=== PATIENT | female | born 1935 | race Caucasian/White ===

== ENCOUNTER 2016-04-13 06:58 | Inpatient (IN) | payer OTHER, BC ==
[~2016-04-13] VITALS: Ht 152.4 cm; Wt 81.8 kg
[2016-04-13] VITALS (14 sets, daily range): BP systolic 84–126; BP diastolic 60–82; PULSE 95–114; TEMP 36.5–37.6; O2SAT 93–98; Ht 152.4 cm; Wt 81.8 kg
[2016-04-13] MEDS: SODIUM CHLORIDE 0.9% 1000ML 1,000 ML IV SCH ×4 (04:00→23:47)
[~2016-04-13 06:58] MED LIST: ALEN70TA2 PO; CALC0.2510 PO; CHOL1000 PO; DESM0.1T8 PO; FLUO0.0566 TOP; HYD10 PO; INSDGIPEN SC; LACT12LO3 EXT; LATA0.009 OP; MCRK20 PO; NITR1CAP32 PO; NRV5 PO; NYST100098 TOP; SALI0.6517 NAE; SOLI10TA2 PO; SYN112 PO
[2016-04-13 07:55] LABS: URINE APPEARANCE CLOUDY (CLEAR); URINE BILIRUBIN NEG (NEG); URINE COLOR DK YELLOW; URINE EPITHELIAL CELL AUTO >30 /lpf (0-5); URINE NITRITE NEG (NEG); URINE PH 5.5 (4.5-7.5); URINE SPECIFIC GRAVITY 1.015 (1.000-1.030); UROBILINOGEN NEG (NEG)
[2016-04-13 08:03] LABS: MANUAL MICROSCOPIC REQUIRED? NO; REVIEW REQ? YES
--- NOTE | 2016-04-13 08:17 | DIAGNOSTIC IMAGING REPORT ---
CHEST ONE VIEW PORTABLE CLINICAL HISTORY: Altered mental status. COMPARISON STUDY: Chest radiograph April 06, 2016. FINDINGS: The right PICC has been removed. There is no pneumothorax or pleural effusion. Mild cardiomegaly is unchanged. A right ureteral stent is partially imaged. There is no evidence of pulmonary edema. No consolidation is identified. Hazy left basilar opacity is unchanged and likely due to epicardial fat pad. IMPRESSION: No acute cardiopulmonary findings. Electronically signed by: Jhoan Mena M.D. 04/13/2016 8:16 AM
[2016-04-13 08:18] LABS: URINE PATH CASTS 0-3 GRANULAR CASTS /lpf (0)
--- NOTE | 2016-04-13 08:21 | DIAGNOSTIC IMAGING REPORT ---
CT HEAD WITHOUT CONTRAST (CT) CLINICAL HISTORY: Acute change in mental status. Fatigue. COMPARISON STUDY: 04/09/2016 TECHNIQUE: Axial CT of the brain is performed from the vertex to the skull base. IV contrast was not administered for this examination. CT DOSE: 537.48 mGy.cm FINDINGS: No intra or extra-axial mass lesions are visualized. There is no CT evidence of acute cortical infarction. There is no evidence of midline shift. There is no acute hemorrhage. No calvarial fractures are visualized. There are postsurgical changes of bifrontal craniotomies. There are moderate white matter hypodensities likely on a small vessel basis. There is no evidence of pathologic ventricular dilatation. There is no evidence of acute sinusitis IMPRESSION: Postsurgical changes. No acute intracranial findings. Electronically signed by: Lico Cabral M.D. 04/13/2016 8:20 AM
[2016-04-13 08:24] LABS: BENZODIAZEPINE, URINE NEG (NEG); COCAINE,URINE NEG (NEG); PHENCYCLIDINE, URINE NEG (NEG)
[2016-04-13] MEDS ORDERED: METOCLOPRAMIDE HCL INJ 5 MG/ML 2 ML VIAL IV STA (08:54)
[2016-04-13] MEDS ORDERED: ONDANSETRON INJ 2 MG/ML 2 ML VIAL IV STA (08:54)
[2016-04-13 09:08] LABS: MEAN CELL VOLUME 92.8 fL (80-100); MEAN CORPUSCULAR HEMOGLOBIN 32.4 pg (25-34); MEAN CORPUSCULAR HGB CONC 34.9 g/dl (32-36); MEAN PLATELET VOLUME 11.3 fL (7.4-10.4); PLATELET COUNT 185 K/uL (130-400); RED BLOOD COUNT 4.85 M/uL (4.2-5.4); WHITE BLOOD COUNT 22.52 K/uL (4.8-10.8)
[2016-04-13 09:21] LABS: COMPLETE YES; LYMPH ABS # 0.97 K/uL (1.2-3.4); LYMPHOCYTE % 4.3 %; MYELOCYTE % 0.9 %; NEUTROPHILS % 90.5 %
[2016-04-13] MEDS ORDERED: CEFTRIAXONE SOD INJ 1 GM ADDVIAL IV STA (09:40)
[2016-04-13 09:43] LABS: ALB/GLOB RATIO 0.8 (0.9-2); ALKALINE PHOSPHATASE 81 U/L (45-117); ALT/SGPT 30 U/L (12-78); AST/SGOT 28 U/L (15-37); BLOOD UREA NITROGEN 20 mg/dl (7-18); BUN/CREATININE RATIO 13.5 (10-20); C-REACTIVE PROTEIN 2.81 mg/dl (0-0.29); CALCIUM 8.7 mg/dl (8.5-10.1); CARBON DIOXIDE 20 mmol/L (21-32); CHLORIDE 111 mmol/L (98-107); GLUCOSE 131 mg/dl (70-99); MAGNESIUM 2.2 mg/dl (1.8-2.4); PHOSPHORUS 3.1 mg/dl (2.5-4.9); POTASSIUM 4.2 mmol/L (3.5-5.1); PROCALCITONIN 0.34 ng/mL (0-0.5); SODIUM 143 mmol/L (136-145)
[2016-04-13 09:53] LABS: LYME DISEASE AB IGG NEG (NEG); LYME DISEASE AB IGM NEG (NEG)
[2016-04-13] MEDS ORDERED: ACETAMINOPHEN 650 MG SUPP PR STA (09:53)
--- NOTE | 2016-04-13 10:39 | History and Physical ---
History & Physical Date & Time of Service: Apr 13, 2016 at 10:38 Chief Complaint: Fatigue Primary Care Physician: Dank Carrillo M.D. History of Present Illness Patient is a 81 y.o.F PMHx of MDR Pseudomonas, Hx of ureteral stent presented to the hospital with altered mentals status. Patient was discharged on 04.11.16. Patients states that she was doing well until this am. Patients states this morning patient had an episode of syncope this morning when caregivers attempted to stand her up. Patients husbands states she was unresponsive for a few seconds. EMS was called and while putting patient on the gurney patient had another syncopal episode. Patient herself states that does had suprapubic pain, dysuria and chills. Past Medical/Surgical History Medical Problems: (1) Depression Status: Chronic (2) GERD (gastroesophageal reflux disease) Status: Chronic (3) Glaucoma Status: Chronic (4) Hypercholesteremia Status: Chronic (5) Right frontal lobe mass Status: Resolved Family History Bladder cancer MOTHER Breast cancer SISTER FH: kidney disease FHx: heart disease Skin cancer MOTHER Social History Smoking Status: Unknown if Ever Smoked Drug Use: none Marital Status: Housing status: lives with family Occupational Status: retired Immunizations History of Influenza Vaccine: No Influenza Vaccine Date: Feb 04, 2010 History of Tetanus Vaccine?: No History of Pneumococcal: YES- [place] 2008 History of Hepatitis B Vaccine: No Multi-Drug Resistant Organisms History of MDRO: No Allergies Coded Allergies: Amoxicillin (Verified Allergy, Intermediate, Swelling of Lips, 04/13/16) Ciprofloxacin (Verified Allergy, Intermediate, RASH, NAUSEA, 04/13/16) Sulfa Antibiotics (Verified Allergy, Intermediate, RASH, 04/13/16) Biotin (Verified Allergy, Unknown, UNKN, 04/13/16) Mirtazapine (Verified Adverse Reaction, Intermediate, altered mental status changes, 04/13/16) Oxycodone (Verified Adverse Reaction, Mild, N/V, 04/13/16) Home Medications Scheduled Alendronate Sodium (Fosamax), 70 MG PO WK Amlodipine Besylate (Amlodipine Besylate), 10 MG PO QAM Ammonium Lactate (Lac-Hydrin), 1 APPLN EXT DIRECTED Calcitriol (Rocaltrol Cap), 0.5 MCG PO DAILY Calcium Carbonate-Cholecalcife (Caltrate 600+D), 1 TAB PO BID Cholecalciferol (Vitamin D3), 5,000 UNITS PO DAILY Desmopressin Acetate (Desmopressin Acetate), 0.2 MG PO HS Hydrocortisone (Cortef), 10 MG PO DAILY@1400 Hydrocortisone (Cortef), 15 MG PO QAM Insulin Glargine (Lantus Solostar), 6 UNIT SC HS Latanoprost (Xalatan 0.005% Oph Leslie), 1 DROPS OP HS Levothyroxine Sodium (Synthroid), 112 MCG PO DAILYBB Menthol (Topical Analgesic) (Biofreeze), 1 APPLN EXT DIRECTED Nitrofurantoin Macrocrystals (Macrodantin), 100 MG PO Q12 Nystatin (Mycostatin), 1 APPLN TOP BID Omeprazole (Prilosec), 20 MG PO DAILY Pediatric Multiple Vitamin W/ (Chewables Multivitamin Pederson), 1 TAB PO DAILY Polyethylene Glycol-Propylene (Systane Ultra), 1 DROPS OP q4-6hours Potassium Chloride (Klor-Con M20), 20 MEQ PO DAILY Probiotic Product (Align), 1 CAP PO DAILY Sodium Chloride ([place] Nasal), 1 SPRAY OSVALDO DIRECTED Solifenacin (Vesicare), 10 MG PO DAILY Scheduled PRN Acetaminophen (Tylenol), 650 MG PO Q4H PRN for MILD PAIN # 1-3 Review of Systems Constitutional: + chills, + fever Eyes: No worsening of vision ENT: No hearing loss Respiratory: + cough, No dyspnea on exertion, No shortness of breath, No sputum Cardiovascular: No chest pain, No edema, No orthopnea Abdomen: + pain, No diarrhea, No nausea, No vomiting Musculoskeletal: No joint pain Genitourinary - Female: No dysuria Neurologic: No memory loss Psychiatric: No depression symptoms Endocrine: No fatigue Hematologic / Lymphatic: No abnormal bleeding/bruising Integumentary: No itch, No rash Allergic / Immunologic: No environmental allergies Physical Exam Vital Signs Date Time Temp Pulse Resp B/P Pulse Ox O2 Delivery O2 Flow Rate FiO2 04/13/16 10:15 118 20 116/74 98 Room Air 04/13/16 09:48 37.8 04/13/16 09:46 116 22 113/69 96 Room Air 04/13/16 09:41 114 24 84/65 97 Room Air 04/13/16 09:37 118 20 89/74 100 Room Air 04/13/16 09:00 118 21 99/76 98 Room Air 04/13/16 08:53 113/79 92 Room Air 04/13/16 08:32 102 21 108/80 98 Room Air 04/13/16 07:02 103 04/13/16 07:01 36.8 102 18 106/76 93 Room Air General Appearance: WD/WN, + mild distress Head: normocephalic Eyes: normal inspection ENT: normal ENT inspection Neck: supple Respiratory/Chest: chest non-tender, lungs clear Cardiovascular: no edema, + tachycardia Abdomen/GI: normal bowel sounds, soft, + tenderness (suprapubic) Genitourinary - Female: external genitalia normal Back: normal inspection Extremities/Musculoskelatal: normal inspection Neurologic/Psych: 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 tested, no motor/sensory deficits, alert, oriented x 3 Skin: normal color, warm/dry, no rash Lymphatic: no adenopathy Diagnostics Laboratory Results Results Past 24 Hours Test 04/13/16 07:30 04/13/16 08:43 Range/Units Urine Color DK YELLOW Urine Appearance CLOUDY CLEAR Urine pH 5.5 4.5-7.5 Urine Specific [place] 1.015 1.000-1.030 Urine Protein 2+ NEG Urine Glucose (UA) NEG NEG Urine Ketones NEG NEG Urine Occult Blood 2+ NEG Urine Nitrite NEG NEG Urine Bilirubin NEG NEG Urine Urobilinogen NEG NEG Urine Leukocyte Esterase MODERATE NEG Urine WBC (Auto) 10-30 0-5 /hpf Urine RBC (Auto) >30 0-4 /hpf Urine Hyaline Casts (Auto) 10-30 0-5 /lpf Urine Epithelial Cells (Auto) >30 0-5 /lpf Urine Bacteria (Auto) NEG NEG Urine Renal Epithelial Cells 0-5 /lpf Urine Pathogenic Casts 0-3 GRANULAR CASTS 0 /lpf Urine Opiates Screen NEG NEG Urine Methadone, Qualitative NEG NEG Urine Barbiturates NEG NEG Urine Phencyclidine (PCP) Level NEG NEG Ur Amphetamine/Methamphetamine NEG NEG MDMA (Ecstasy) Screen NEG NEG Urine Benzodiazepines Screen NEG NEG Urine Cocaine Metabolite NEG NEG Urine Marijuana (THC) NEG NEG White Blood Count 22.52 4.8-10.8 K/uL Red Blood Count 4.85 4.2-5.4 M/uL Hemoglobin 15.7 12.0-16.0 g/dL Hematocrit 45.0 37-47 % Mean Corpuscular Volume 92.8 80-100 fL Mean Corpuscular Hemoglobin 32.4 25-34 pg Mean Corpuscular Hemoglobin Concent 34.9 32-36 g/dl Platelet Count 185 130-400 K/uL Mean Platelet Volume 11.3 7.4-10.4 fL RDW Standard Deviation 57.3 36.4-46.3 fL RDW Coefficient of Variation 17.0 11.5-14.5 % Nucleated RBC Absolute Count (auto) 0.09 0-0 K/uL Neutrophils % (Manual) 90.5 % Lymphocytes % (Manual) 4.3 % Monocytes % (Manual) 4.3 % Myelocytes % 0.9 % Nucleated Red Blood Cells % 0.4 % Neutrophils # (Manual) 20.38 1.4-6.5 K/uL Total Absolute Neutrophils 20.38 1.4-6.5 K/uL Lymphocytes # (Manual) 0.97 1.2-3.4 K/uL Total Absolute Lymphocytes 0.97 1.2-3.4 K/uL Monocytes # (Manual) 0.97 0.11-0.59 K/uL Myelocytes # 0.20 0-0 K/uL Sodium Level 143 136-145 mmol/L Potassium Level 4.2 3.5-5.1 mmol/L Chloride Level 111 98-107 mmol/L Carbon Dioxide Level 20 21-32 mmol/L Anion Gap 12.0 3-11 mmol/L Blood Urea Nitrogen 20 7-18 mg/dl Creatinine 1.50 0.60-1.20 mg/dl Est Creatinine Clear Calc Drug Dose 28.7 ml/min Estimated GFR () 37.7 Estimated GFR (Non- 32.6 BUN/Creatinine Ratio 13.5 10-20 Random Glucose 131 70-99 mg/dl Calcium Level 8.7 8.5-10.1 mg/dl Phosphorus Level 3.1 2.5-4.9 mg/dl Magnesium Level 2.2 1.8-2.4 mg/dl Total Bilirubin 0.6 0.2-1 mg/dl Direct Bilirubin 0-0.2 mg/dl Aspartate Amino Transf (AST/SGOT) 28 15-37 U/L Alanine Aminotransferase (ALT/SGPT) 30 12-78 U/L Alkaline Phosphatase 81 45-117 U/L Troponin I < 0.015 0-0.045 ng/ml C-Reactive Protein 2.81 0-0.29 mg/dl Total Protein 6.6 6.4-8.2 gm/dl Albumin 3.0 3.4-5.0 gm/dl Globulin 3.6 2.5-4.0 gm/dl Albumin/Globulin Ratio 0.8 0.9-2 Procalcitonin 0.34 0-0.5 ng/mL Ethyl Alcohol mg/dL < 3.0 0-3 mg/dl Lyme Disease IgG Antibody NEG NEG Lyme Disease IgM Antibody NEG NEG Microbiology Results 04/13/16 Blood Culture, Zachary Batch Pending 04/13/16 Blood Culture, Zachary Batch Pending Impression Assessment and Plan Patient is an 81 y.o.F brought in from the ED with altered mental status, found to have Urosepsis Urinary Tract infection with sepsis - admit to medicine telemetry until - treat with imipenem as was previous choice of inpatient antibiotics last admission - start NSS @80cc/hr - urine/blood cultures are pending VERO - suspect prerenal from sepsis - start IVF at 80cc/hour Metabolic encephalopathy - suspect 2/2 to UTI - recent hospitalization with similar presentation, symptoms resolved with changing of antibiotics regimen Diabetes insipidus - Continue vasopressin - no defined cause for encephalopathy, no improved mental state with stress steroid augmentation, resume usual hydrocortisone 04/09 Type 2 DM - Continue home lantus - Novolog sliding scale Hypertension - Continue amlopidine - Hydralazine PRN Hypothyroidism - Continue synthroid 100mcg VTE - Heparin CODE STATUS- FULL CODE
[2016-04-13] MEDS ORDERED: ACETAMINOPHEN 325 MG TAB PO PRN (11:00)
[2016-04-13] MEDS ORDERED: IMIPENEM/CILASTATIN CONSULT ACTIVE PRN (11:03)
[2016-04-13] MEDS ORDERED: IMIPENEM/CILASTATIN IV 500 MG in DEXTROSE 5% 100ML 100 ML IV SCH (11:15)
--- NOTE | 2016-04-13 11:28 | EMERGENCY ROOM VISIT NOTE ---
History Report prepared by Eliezer: Alberta Lerma Under the Supervision of: Dr. Allan Villa M.D. First contact with patient: 07:15 Chief Complaint: OTHER COMPLAINT Stated Complaint: FATIGUE History of Present Illness The patient is a 81 year old female who presents to the Emergency Room with complaints of constant altered mental status beginning this morning. Per , the patient did not wake up at all last night to use the bathroom which is unusual for her. He tried to wake her up this morning and states that she became "sort of non-responsive and her eyes glazed over." This lasted for about 4-5 minutes. He called EMS and states that she had a similar episode when EMS arrived. She was complaining of nausea with these episodes. The patient's states that this is similar to how she acted the last time she had to be admitted to the hospital. She was admitted to the hospital twice in the past couple of weeks. She was most recently discharged from the hospital 3 days ago. states that the last time her doctor thought it might be a reaction to cefepime. He notes that she is more confused than normal. 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 A total of 10 systems reviewed and were otherwise negative. Past Medical & Surgical Medical Problems: (1) Abnormal liver enzymes (2) Depression (3) Diabetes insipidus (4) GERD (gastroesophageal reflux disease) (5) Glaucoma (6) Hypercholesteremia (7) Metabolic encephalopathy (8) NSTEMI, initial episode of care (9) Right frontal lobe mass (10) Sepsis (11) UTI (urinary tract infection) Family History Bladder cancer MOTHER Breast cancer SISTER FH: kidney disease FHx: heart disease Skin cancer MOTHER Social History Smoking Status: Unknown if Ever Smoked Alcohol Use: none Drug Use: none Marital Status: Housing Status: lives with family Occupation Status: retired Current/Historical Medications Scheduled Alendronate Sodium (Fosamax), 70 MG PO WK Amlodipine Besylate (Amlodipine Besylate), 10 MG PO QAM Ammonium Lactate (Lac-Hydrin), 1 APPLN EXT DIRECTED Calcitriol (Rocaltrol Cap), 0.5 MCG PO DAILY Calcium Carbonate-Cholecalcife (Caltrate 600+D), 1 TAB PO BID Cholecalciferol (Vitamin D3), 5,000 UNITS PO DAILY Desmopressin Acetate (Desmopressin Acetate), 0.2 MG PO HS Hydrocortisone (Cortef), 10 MG PO DAILY@1400 Hydrocortisone (Cortef), 15 MG PO QAM Insulin Glargine (Lantus Solostar), 6 UNIT SC HS Latanoprost (Xalatan 0.005% Oph Leslie), 1 DROPS OP HS Levothyroxine Sodium (Synthroid), 112 MCG PO DAILYBB Menthol (Topical Analgesic) (Biofreeze), 1 APPLN EXT DIRECTED Nitrofurantoin Macrocrystals (Macrodantin), 100 MG PO Q12 Nystatin (Mycostatin), 1 APPLN TOP BID Omeprazole (Prilosec), 20 MG PO DAILY Pediatric Multiple Vitamin W/ (Chewables Multivitamin Pederson), 1 TAB PO DAILY Polyethylene Glycol-Propylene (Systane Ultra), 1 DROPS OP q4-6hours Potassium Chloride (Klor-Con M20), 20 MEQ PO DAILY Probiotic Product (Align), 1 CAP PO DAILY Sodium Chloride ([place] Nasal), 1 SPRAY OSVALDO DIRECTED Solifenacin (Vesicare), 10 MG PO DAILY Scheduled PRN Acetaminophen (Tylenol), 650 MG PO Q4H PRN for MILD PAIN # 1-3 Allergies Coded Allergies: Amoxicillin (Verified Allergy, Intermediate, Swelling of Lips, 04/13/16) Ciprofloxacin (Verified Allergy, Intermediate, RASH, NAUSEA, 04/13/16) Sulfa Antibiotics (Verified Allergy, Intermediate, RASH, 04/13/16) Biotin (Verified Allergy, Unknown, UNKN, 04/13/16) Mirtazapine (Verified Adverse Reaction, Intermediate, altered mental status changes, 04/13/16) Oxycodone (Verified Adverse Reaction, Mild, N/V, 04/13/16) Physical Exam Vital Signs Date Time Temp Pulse Resp B/P Pulse Ox O2 Delivery O2 Flow Rate FiO2 04/13/16 10:42 98 Room Air 04/13/16 10:15 118 20 116/74 98 Room Air 04/13/16 09:48 37.8 04/13/16 09:46 116 22 113/69 96 Room Air 04/13/16 09:41 114 24 84/65 97 Room Air 04/13/16 09:37 118 20 89/74 100 Room Air 04/13/16 09:00 118 21 99/76 98 Room Air 04/13/16 08:53 113/79 92 Room Air 04/13/16 08:32 102 21 108/80 98 Room Air 04/13/16 07:02 103 04/13/16 07:01 36.8 102 18 106/76 93 Room Air Physical Exam CONSTITUTIONAL: No acute distress, appears confused. HEENT: No icterus, moist mucous membranes NECK: No meningismus, trachea is midline. CARDIOVASCULAR: Regular rate, normal perfusion RESPIRATORY: Unlabored breathing. Clear to auscultation. GASTROINTESTINAL: Non-tender GENITOURINARY: No flank tenderness MUSCULOSKELETAL: Full range of motion NEUROLOGIC: No acute gross focal deficits. Oriented x2, did not answer year, address, or president correctly. Not consistent with baseline per . PSYCHIATRIC: Normal affect SKIN: Normal for ethnicity. Medical Decision & Procedures ER Provider Diagnostic Interpretation: Radiology results as stated below per my review and radiologist interpretation. CT HEAD WITHOUT CONTRAST (CT) CLINICAL HISTORY: Acute change in mental status. Fatigue. COMPARISON STUDY: 04/09/2016 TECHNIQUE: Axial CT of the brain is performed from the vertex to the skull base. IV contrast was not administered for this examination. CT DOSE: 537.48 mGy.cm FINDINGS: No intra or extra-axial mass lesions are visualized. There is no CT evidence of acute cortical infarction. There is no evidence of midline shift. There is no acute hemorrhage. No calvarial fractures are visualized. There are postsurgical changes of bifrontal craniotomies. There are moderate white matter hypodensities likely on a small vessel basis. There is no evidence of pathologic ventricular dilatation. There is no evidence of acute sinusitis IMPRESSION: Postsurgical changes. No acute intracranial findings. Electronically signed by: Lico Cabral M.D. 04/13/2016 8:20 AM CHEST ONE VIEW PORTABLE CLINICAL HISTORY: Altered mental status. COMPARISON STUDY: Chest radiograph April 06, 2016. FINDINGS: The right PICC has been removed. There is no pneumothorax or pleural effusion. Mild cardiomegaly is unchanged. A right ureteral stent is partially imaged. There is no evidence of pulmonary edema. No consolidation is identified. Hazy left basilar opacity is unchanged and likely due to epicardial fat pad. IMPRESSION: No acute cardiopulmonary findings. Electronically signed by: Jhoan Mena M.D. 04/13/2016 8:16 AM Laboratory Results 04/13/16 08:43 Red Blood Count 4.85, Mean Corpuscular Volume 92.8, Mean Corpuscular Hemoglobin 32.4, Mean Corpuscular Hemoglobin Concent 34.9, Mean Platelet Volume 11.3 04/13/16 08:43 Test 04/13/16 07:30 04/13/16 08:43 Urine Color DK YELLOW Urine Appearance CLOUDY (CLEAR) Urine pH 5.5 (4.5-7.5) Urine Specific [place] 1.015 (1.000-1.030) Urine Protein 2+ (NEG) Urine Glucose (UA) NEG (NEG) Urine Ketones NEG (NEG) Urine Occult Blood 2+ (NEG) Urine Nitrite NEG (NEG) Urine Bilirubin NEG (NEG) Urine Urobilinogen NEG (NEG) Urine Leukocyte Esterase MODERATE (NEG) Urine WBC (Auto) 10-30 /hpf (0-5) Urine RBC (Auto) >30 /hpf (0-4) Urine Hyaline Casts (Auto) 10-30 /lpf (0-5) Urine Epithelial Cells (Auto) >30 /lpf (0-5) Urine Bacteria (Auto) NEG (NEG) Urine Renal Epithelial Cells /lpf (0-5) Urine Pathogenic Casts 0-3 GRANULAR CASTS /lpf (0) Urine Opiates Screen NEG (NEG) Urine Methadone, Qualitative NEG (NEG) Urine Barbiturates NEG (NEG) Urine Phencyclidine (PCP) Level NEG (NEG) Ur Amphetamine/Methamphetamine NEG (NEG) MDMA (Ecstasy) Screen NEG (NEG) Urine Benzodiazepines Screen NEG (NEG) Urine Cocaine Metabolite NEG (NEG) Urine Marijuana (THC) NEG (NEG) White Blood Count 22.52 K/uL (4.8-10.8) Red Blood Count 4.85 M/uL (4.2-5.4) Hemoglobin 15.7 g/dL (12.0-16.0) Hematocrit 45.0 % (37-47) Mean Corpuscular Volume 92.8 fL (80-100) Mean Corpuscular Hemoglobin 32.4 pg (25-34) Mean Corpuscular Hemoglobin Concent 34.9 g/dl (32-36) Platelet Count 185 K/uL (130-400) Mean Platelet Volume 11.3 fL (7.4-10.4) RDW Standard Deviation 57.3 fL (36.4-46.3) RDW Coefficient of Variation 17.0 % (11.5-14.5) Nucleated RBC Absolute Count (auto) 0.09 K/uL (0-0) Neutrophils % (Manual) 90.5 % Lymphocytes % (Manual) 4.3 % Monocytes % (Manual) 4.3 % Myelocytes % 0.9 % Nucleated Red Blood Cells % 0.4 % Neutrophils # (Manual) 20.38 K/uL (1.4-6.5) Total Absolute Neutrophils 20.38 K/uL (1.4-6.5) Lymphocytes # (Manual) 0.97 K/uL (1.2-3.4) Total Absolute Lymphocytes 0.97 K/uL (1.2-3.4) Monocytes # (Manual) 0.97 K/uL (0.11-0.59) Myelocytes # 0.20 K/uL (0-0) Anion Gap 12.0 mmol/L (3-11) Est Creatinine Clear Calc Drug Dose 28.7 ml/min Estimated GFR () 37.7 Estimated GFR (Non- 32.6 BUN/Creatinine Ratio 13.5 (10-20) Calcium Level 8.7 mg/dl (8.5-10.1) Phosphorus Level 3.1 mg/dl (2.5-4.9) Magnesium Level 2.2 mg/dl (1.8-2.4) Total Bilirubin 0.6 mg/dl (0.2-1) Direct Bilirubin mg/dl (0-0.2) Aspartate Amino Transf (AST/SGOT) 28 U/L (15-37) Alanine Aminotransferase (ALT/SGPT) 30 U/L (12-78) Alkaline Phosphatase 81 U/L (45-117) Troponin I < 0.015 ng/ml (0-0.045) C-Reactive Protein 2.81 mg/dl (0-0.29) Total Protein 6.6 gm/dl (6.4-8.2) Albumin 3.0 gm/dl (3.4-5.0) Globulin 3.6 gm/dl (2.5-4.0) Albumin/Globulin Ratio 0.8 (0.9-2) Procalcitonin 0.34 ng/mL (0-0.5) Ethyl Alcohol mg/dL < 3.0 mg/dl (0-3) Lyme Disease IgG Antibody NEG (NEG) Lyme Disease IgM Antibody NEG (NEG) Labs reviewed by ED physician. Medications Administered Medications (Trade) Dose Ordered Sig/Natalee Route Start Time Stop Time Status Last Admin Dose Admin Ondansetron HCl (Zofran Inj) 4 mg NOW STAT IV 04/13/16 08:54 04/13/16 08:58 DC 04/13/16 09:14 4 MG Metoclopramide HCl (Reglan Inj) 10 mg NOW STAT IV 04/13/16 08:54 04/13/16 08:58 DC 04/13/16 09:14 10 MG Ceftriaxone Sodium (Rocephin Inj) 1 gm NOW STAT IV 04/13/16 09:40 04/13/16 09:41 DC 04/13/16 10:17 1 GM Acetaminophen (Tylenol Supp) 650 mg NOW STAT PA 04/13/16 09:53 04/13/16 09:54 DC 04/13/16 10:16 650 MG ECG Indication: altered mental status Rate (beats per minute): 100 Rhythm: sinus rhythm Findings: nonspecific-ST abn, no ectopy ED Course 0715: Past medical records reviewed. The patient was evaluated in room A10. A complete history and physical examination was performed. 0854: Reglan 10 mg IV, Zofran 4 mg IV 0940: Rocephin 1 gm IV 0953: Tylenol Supp 650 mg PA 0958: I reassessed the patient at this time. She is resting comfortably. I discussed the results and treatment plan with the patient's family. I answered all pertaining questions that they had. They expressed understanding and verbalized agreement. 1011: I spoke with Dr. Sanchez. We discussed the patients results and treatment plan. The patient will be evaluated by the [facility] for further management. Medical Decision Differential diagnoses includes intracranial lesions or bleeding, UTI, sepsis, electrolyte abnormality, cardiac dysrhythmia. 81-year-old brought to the emergency room for evaluation of unresponsive episode at home. 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 notes complicated medical course with 2 recent admissions for similar episodes he is unclear what the underlying etiologies were. Review of systems is notable for a kidney stone with stent and family is concerned that patient's continued illness is due to lack of kidney stone and stent removal. Screening evaluation was performed in ER and white blood cell count noted to be elevated in context of potential source as urine. Rocephin IV ordered and admission arranged with hospitalist. Patient remained hemodynamically stable throughout ED course. Consults Time Called: 1007 Consulting Physician: Dr. Sanchez Returned Call: [address] Sanchez. We discussed the patients results and treatment plan. The patient will be evaluated by the [facility] for further management. Impression Primary Impression: Altered mental status Additional Impression: Leukocytosis Scribe Attestation The scribe's documentation has been prepared under my direction and personally reviewed by me in its entirety. I confirm that the note above accurately reflects all work, treatment, procedures, and medical decision making performed by me. Departure Information Dispostion Being Evaluated By Hospitalist Referrals Dank Carrillo M.D. (PCP) Patient Instructions A Signature Page, [facility]
[2016-04-13] MEDS ORDERED: NURSING VERBAL MED ORDER ONE (12:00)
[2016-04-13] MEDS ORDERED: MoRPHine SULFATE 2 MG/ML CARP IV PRN (12:45)
--- NOTE | 2016-04-13 13:50 | DIAGNOSTIC IMAGING REPORT ---
CT SCAN OF THE ABDOMEN AND PELVIS WITHOUT CONTRAST CLINICAL HISTORY: Left upper quadrant abdominal pain and sepsis COMPARISON STUDY: 04/06/2016 TECHNIQUE: CT scan of the abdomen and pelvis was performed from the lung bases to the proximal femurs. Images are reviewed in the axial, sagittal, and coronal planes. IV contrast was not administered for this examination. CT DOSE: 1066.36 mGy.cm FINDINGS: Lower chest: There are bibasal residual opacities possibly atelectatic. There are coronary artery calcifications. Liver: The unenhanced liver is normal in size, contour, and attenuation. There is no intrahepatic biliary ductal dilatation. Gallbladder: Cholelithiasis Spleen: Normal in size and attenuation. Pancreas: Unremarkable. Adrenal glands: Unremarkable. Kidneys: There is a 4 mm lower pole left renal calculus.. There is a right-sided nephroureteral stent which appears unchanged in position. There is a 1 cm upper pole left renal cyst. There are left renal parapelvic cysts. There is a 12 mm mid pole left renal cyst. There is a 6 mm distal right ureteral calculus along the course of the stent. Bowel: There are no transition zones indicate bowel obstruction. There is colonic diverticulosis. There is mild fecal retention. There are scattered colonic diverticula. There are no acute peridiverticular inflammatory changes. The appendix appears normal. Peritoneum: There is no intraperitoneal free air or abdominal ascites. Vasculature: The abdominal aorta is normal in course and caliber. Adenopathy: None. Pelvic viscera: The bladder, and pelvic viscera are unremarkable. Skeletal structures: There are moderate degenerative changes present within the lumbar spine. IMPRESSION: 1. Left-sided nephrolithiasis 2. Right-sided nephroureteral stent 3. 6 mm distal right ureteral calculus adjacent to the stent 4. No evidence of bowel obstruction. No evidence of free air 5. Normal appendix 6. Diverticulosis. No evidence of acute peridiverticular inflammatory change 7. Cholelithiasis 8. Fecal retention Electronically signed by: Lico Cabral M.D. 04/13/2016 1:49 PM
[2016-04-13] MEDS ORDERED: HYDROCORTISONE 10 MG TAB PO SCH (14:00)
--- NOTE | 2016-04-13 14:43 | DIAGNOSTIC IMAGING REPORT ---
RENAL ULTRASOUND CLINICAL HISTORY: Urosepsis. COMPARISON STUDY: CT of the abdomen and pelvis performed earlier today and renal ultrasound March 29, 2016. TECHNIQUE: Sonography of the kidneys and the urinary bladder was performed. FINDINGS: This exam is significantly compromised by suboptimal penetration. The right kidney measures 10.1 x 5.8 x 5 cm and the left measures 10.5 x 5.8 x 4.6 cm. A right ureteral stent is visualized. Neither ureteral jet was identified. There is moderate bilateral renal cortical thinning. Anechoic foci within each renal sinus could reflect parapelvic cysts given findings on earlier exams. There is no convincing evidence for left hydronephrosis. Mild right collecting system dilatation would be difficult to exclude. IMPRESSION: 1. Right ureteral stent in place. On this exam, it is difficult to differentiate parapelvic cysts from mild hydronephrosis. Mild right collecting system dilatation is favored. No convincing left hydronephrosis. 2. Moderate renal cortical thinning. Electronically signed by: Jhoan Mena M.D. 04/13/2016 2:42 PM
--- NOTE | 2016-04-13 15:06 | Progress Note ---
Progress Note ID Consult Dictated #[id number] A/P: 1. UTI ? infected stent 2. Leukocytosis 3. Fever Continue imipenem check urine culture, recent pseudomonas follow culture results urology eval pending thank you
[2016-04-13] MEDS ORDERED: SODIUM CHLORIDE 0.9% 1000ML 1,000 ML IV ONE (16:30)
[2016-04-13] MEDS: HYDROCORTISONE IV 100 MG in SYRINGE 0 ML IV SCH ×2 (17:11→23:54)
[2016-04-13] MEDS: BOOST BREEZE NUTRITION DRINK 1 BOX PO SCH (17:13)
[2016-04-13] MEDS: IMIPENEM-CILASTATIN 250 MG in DEXTROSE 5% 100ML 100 ML IV SCH ×2 (18:18→23:54)
[2016-04-13] MEDS ORDERED: SODIUM CHLORIDE 0.9% 1000ML 1,000 ML IV SCH (18:30)
--- NOTE | 2016-04-13 18:43 | Progress Note ---
Progress Note Hospitalist Cross-Cover Note - 04/13/161814 Called by staff that patient's blood pressure was low in the 80s systolically. Orders given for NS bolus and hydrocortisone 100mg IV q8h STAT. Apparently she had tried to ambulate to the bathroom and had near-syncope. Telemetry this afternoon with sinus tach, rates 110-130. Only 1 urinary void since arrival to the telemetry unit. Upon my assessment the patient appeared toxic/septic and was mildly confused. exam - gen - sleepy but will follow commands mouth - MM dry neck - no JVD heart - tachy, s1, s2 lungs - CTA b/l abd - soft, obese, NT, no peritoneal signs ext - pulses 2+ b/l I reviewed the patient's chart including labs/imaging. I subsequently spoke with Dr. Fields, ICU attending, and Dr. Fallon - urology. BP following first bolus about 100 systolic. Will give 2nd bolus now, place pizarro, and repeat all labs including lactate/ abg. Dr. Fallon reviewed the pt's renal u/s and CT and felt that the stent was in proper position and was not obstructed. Nothing emergent to do at this time. Pt to transfer to ICU. Pt's updated at bedside. If urine is not the source of her sepsis consider biliary tree (has gallstones on CT but LFTs were normal this am). Time 60 minutes critical care time Umesh LAURENT MD
--- NOTE | 2016-04-13 18:55 | INFECT. DISEASE CONSULTATION ---
DATE OF CONSULTATION: 04/13/2016 REQUESTING PHYSICIAN: Dr. Zuniga. HISTORY OF PRESENT ILLNESS: This is an 81-year-old female who was recently discharged from the hospital on the 11 of April. At that time she was diagnosed with urinary tract infection. Urine culture from the 29 of March grew pansensitive pseudomonas. She did have a repeat blood culture on the which was negative. She was initially on cefepime and then completed a 7-day course of imipenem. She was discharged in stable condition on the . At that time, her white blood cell count was 14. Her family is present with her and states that today she had 2 syncopal episodes while trying to ambulate and urinate. EMS was called and she was brought to the hospital. In the ER, she did have a white blood cell count of 22,000. She had 10-30 wbcs on urinalysis and no bacteria. Blood cultures were obtained and are pending. She was placed back on imipenem. She did have a temperature of 37.8. On my examination today, she is in the bathroom and had a syncopal episode while on the toilet. She was assisted back to bed and is very lethargic. She does open her eyes when directed and was able to answer simple questions. However, she is unable to state if she has fevers, chills or pain. Any other additional remaining review of systems are unable to be obtained. She did have a CAT scan of the head in the Emergency Room which was unremarkable. PAST MEDICAL HISTORY: Significant for depression, GERD, glaucoma, high cholesterol, right frontal lobe mass with resection and recent admission for urinary tract infection. PAST SURGICAL HISTORY: Significant for a right ureteral stent and previous brain surgery. FAMILY HISTORY: Noncontributory. SOCIAL HISTORY: Negative for alcohol, drug use or tobacco use. She lives with family. ALLERGIES: SHE HAS MULTIPLE ALLERGIES INCLUDING AMOXICILLIN, QUINOLONE ANTIBIOTICS, SULFA ANTIBIOTICS, BIOTIN, MIRTAZAPINE, AND OXYCODONE. CURRENT MEDICATIONS: Include Norvasc, calcitriol, potassium, Synthroid, desmopressin, insulin, eyedrops, Mycostatin, subQ heparin, imipenem, Boost, morphine and Tylenol. PHYSICAL EXAMINATION: VITAL SIGNS: T-max is 37.8, current temperature is 37.2, pulse 114, respiratory rate 22, blood pressure 126/81 and oxygen saturation is 94-98% on room air. GENERAL: She is awake but lethargic and minimally arousable. HEENT: Mucous membranes are dry. HEART: Regular and tachycardic. LUNGS: Clear with poor inspiratory effort bilaterally. ABDOMEN: Soft and nondistended. There is no lower extremity edema. SKIN: Without rash. LABORATORY STUDIES: CBC today reveals a white blood cell count 22.5, hemoglobin 15.7, hematocrit 45 and platelets of 185. Chemistry panel reveals a sodium of 143, potassium 4.2, chloride 111, bicarbonate 20, BUN 20, creatinine 1.5, glucose is 131. LFTs are within normal limits. Urinalysis chemistry revealed 10-30 wbcs with no bacteria, UDS is negative, alcohol level is negative, a Lyme screen is negative. Blood cultures are pending. Urine culture is not obtained. CAT scan of the head showed postoperative changes. IMAGING DATA: A chest x-ray done in the Emergency Room shows no acute cardiopulmonary findings. A CAT scan of the abdomen and pelvis shows a 4 mm left renal cyst and right-sided stent is unchanged in position. There is a 1 cm left renal cyst. There is a left parapelvic cyst, there is a 12 mm left renal cyst and a 6 mm right calculus along the course of this and no bowel obstruction or free air is noted. ASSESSMENT AND PLAN: 1. Leukocytosis with mental status change and recent urinary tract infection, concerning for infected stent. Urology evaluation is pending. She will be maintained on broad spectrum antibiotics. A urine culture will be ordered. Blood cultures are pending at this time. She certainly may have a change in mental status secondary to infection; however, if this continues repeat neurology evaluation should be obtained. Thank you for this consultation.
[2016-04-13 18:56] LABS: ALLEN TEST POS (POS); ARTERIAL BLD GAS O2 SATURATION < 60.0 % (90-95); ARTERIAL BLOOD GAS BASE EXCESS -6.1 mEq/L (-9-1.8); ARTERIAL BLOOD GAS HCO3 20 mmol/L (19-24); ARTERIAL BLOOD GAS PO2 33 mm/Hg (80-95); ARTERIAL BLOOD GAS pH 7.32 (7.35-7.45); O2 ADMINISTRATION ROOM AIR
[2016-04-13 19:16] LABS: INR 1.1 (0.9-1.1); PROTHROMBIN TIME (PATIENT) 11.8 SECONDS (9.0-12.0)
--- NOTE | 2016-04-13 19:17 | Urology Consultation ---
History General Date of Service: Apr 13, 2016. Primary Care Physician: Dank Carrillo M.D. Pt seen a urologist before?: Yes If yes, why?: Stones History of Present Illness Patient's an 81-year-old white female with a history of nephrolithiasis who has an indwelling right ureteral stent. This was placed because of an obstructing stone on the right side. She's been in and out of the hospital with recurrent urinary tract infections and urosepsis. She was just discharged 2 days ago after being in the hospital for presumed urosepsis. She was not sent home on any antibiotics today she developed weakness and lethargy and a change in mental status and she was brought back to the emergency room where she was again admitted with sepsis. Currently the patient does appear toxic she really is unable to communicate with me Laboratory Last 24 Hours Test 04/13/16 07:30 04/13/16 08:43 04/13/16 18:47 04/13/16 18:55 Urine Color DK YELLOW Urine Appearance CLOUDY Urine pH 5.5 Urine Specific [place] 1.015 Urine Protein 2+ Urine Glucose (UA) NEG Urine Ketones NEG Urine Occult Blood 2+ Urine Nitrite NEG Urine Bilirubin NEG Urine Urobilinogen NEG Urine Leukocyte Esterase MODERATE Urine WBC (Auto) 10-30 /hpf Urine RBC (Auto) >30 /hpf Urine Hyaline Casts (Auto) 10-30 /lpf Urine Epithelial Cells (Auto) >30 /lpf Urine Bacteria (Auto) NEG Urine Renal Epithelial Cells /lpf Urine Pathogenic Casts 0-3 GRANULAR CASTS /lpf Urine Opiates Screen NEG Urine Methadone, Qualitative NEG Urine Barbiturates NEG Urine Phencyclidine (PCP) Level NEG Ur Amphetamine/Methamphetamine NEG MDMA (Ecstasy) Screen NEG Urine Benzodiazepines Screen NEG Urine Cocaine Metabolite NEG Urine Marijuana (THC) NEG White Blood Count 22.52 K/uL Red Blood Count 4.85 M/uL Hemoglobin 15.7 g/dL Hematocrit 45.0 % Mean Corpuscular Volume 92.8 fL Mean Corpuscular Hemoglobin 32.4 pg Mean Corpuscular Hemoglobin Concent 34.9 g/dl Platelet Count 185 K/uL Mean Platelet Volume 11.3 fL RDW Standard Deviation 57.3 fL RDW Coefficient of Variation 17.0 % Nucleated RBC Absolute Count (auto) 0.09 K/uL Neutrophils % (Manual) 90.5 % Lymphocytes % (Manual) 4.3 % Monocytes % (Manual) 4.3 % Myelocytes % 0.9 % Nucleated Red Blood Cells % 0.4 % Neutrophils # (Manual) 20.38 K/uL Total Absolute Neutrophils 20.38 K/uL Lymphocytes # (Manual) 0.97 K/uL Total Absolute Lymphocytes 0.97 K/uL Monocytes # (Manual) 0.97 K/uL Myelocytes # 0.20 K/uL Sodium Level 143 mmol/L Potassium Level 4.2 mmol/L Chloride Level 111 mmol/L Carbon Dioxide Level 20 mmol/L Anion Gap 12.0 mmol/L Blood Urea Nitrogen 20 mg/dl Creatinine 1.50 mg/dl Est Creatinine Clear Calc Drug Dose 28.7 ml/min Estimated GFR () 37.7 Estimated GFR (Non- 32.6 BUN/Creatinine Ratio 13.5 Random Glucose 131 mg/dl Calcium Level 8.7 mg/dl Phosphorus Level 3.1 mg/dl Magnesium Level 2.2 mg/dl Total Bilirubin 0.6 mg/dl Direct Bilirubin mg/dl Aspartate Amino Transf (AST/SGOT) 28 U/L Alanine Aminotransferase (ALT/SGPT) 30 U/L Alkaline Phosphatase 81 U/L Troponin I < 0.015 ng/ml C-Reactive Protein 2.81 mg/dl Total Protein 6.6 gm/dl Albumin 3.0 gm/dl Globulin 3.6 gm/dl Albumin/Globulin Ratio 0.8 Procalcitonin 0.34 ng/mL Ethyl Alcohol mg/dL < 3.0 mg/dl Lyme Disease IgG Antibody NEG Lyme Disease IgM Antibody NEG Arterial Blood pH 7.32 Arterial Blood Partial Pressure CO2 39 mmHg Arterial Blood Partial Pressure O2 33 mm/Hg Arterial Blood HCO3 20 mmol/L Arterial Blood Oxygen Saturation < 60.0 % Arterial Blood Base Excess -6.1 mEq/L Arterial Blood Gas Delivery ROOM AIR Huey Test POS Problem List Medical Problems: (1) Acute kidney injury Status: Acute (2) VERO (acute kidney injury) Status: Acute (3) Altered mental status Status: Acute (4) Altered mental status Status: Acute (5) Altered mental status Status: Acute (6) Altered mental status Status: Acute (7) Altered mental status Status: Acute (8) Dehydration Status: Acute (9) Dysarthria Status: Acute (10) Hydronephrosis Status: Acute (11) Hydronephrosis Status: Acute (12) Kidney stone Status: Acute (13) Leukocytosis Status: Acute (14) Nausea & vomiting Status: Acute (15) Pleural effusion Status: Acute (16) Right ureteral calculus Status: Acute (17) Sepsis Status: Acute (18) Sepsis Status: Acute (19) Urinary tract infection Status: Acute Past History arthritis, cancer - skin, CVA/TIA/stroke, depression, diabetes, GERD, high cholesterol, kidney stones, osteoporosis, renal disease, seizure, urinary tract infection, other Past Surgical History: oophorectomy, ureteral stent, other Family History Bladder cancer MOTHER Breast cancer SISTER FH: kidney disease FHx: heart disease Skin cancer MOTHER Social History Hx Tobacco Use In Past Year?: No Smoking: non-smoker Alcohol: never Drug use: none Marital status: Housing status: lives with family Occupation status: retired Immunizations History of Influenza Vaccine: No Influenza Vaccine Date: Feb 04, 2010 History of Tetanus Vaccine?: No History of Pneumococcal: YES- [place] 2008 History of Hepatitis B Vaccine: No History of MDRO No Allergies Coded Allergies: Amoxicillin (Verified Allergy, Intermediate, Swelling of Lips, 04/13/16) Ciprofloxacin (Verified Allergy, Intermediate, RASH, NAUSEA, 04/13/16) Sulfa Antibiotics (Verified Allergy, Intermediate, RASH, 04/13/16) Biotin (Verified Allergy, Unknown, UNKN, 04/13/16) Mirtazapine (Verified Adverse Reaction, Intermediate, altered mental status changes, 04/13/16) Oxycodone (Verified Adverse Reaction, Mild, N/V, 04/13/16) Medications Home Medications: Home Meds and Scripts Medications Dose Route/Sig Max Daily Dose Days Date Category Synthroid (Levothyroxine Sodium) 112 Mcg Tab 112 Mcg PO DAILYBB 30 04/11/16 Rx Cortef (Hydrocortisone) 10 Mg Tab 15 Mg PO QAM 30 04/11/16 Rx Cortef (Hydrocortisone) 10 Mg Tab 10 Mg PO DAILY@1400 30 04/11/16 Rx Desmopressin Acetate 0.1 Mg Tab 0.2 Mg PO HS 30 04/11/16 Rx Klor-Con M20 (Potassium Chloride) 20 Meq Tabcr 20 Meq PO DAILY 30 04/03/16 Rx Amlodipine Besylate 5 Mg Tab 10 Mg PO QAM 30 04/03/16 Rx Chewables Multivitamin Pederson (Pediatric Multiple Vitamin W/) 1 Chw Chw 1 Tab PO DAILY 03/29/16 Reported Macrodantin (Nitrofurantoin Macrocrystals) 100 Mg Cap 100 Mg PO Q12 03/29/16 Reported Lantus Solostar (Insulin Glargine) 100 Unit/Ml Inj 6 Unit SC HS 03/29/16 Reported Caltrate 600+D (Calcium Carbonate-Cholecalcife) 1 Tab Tab 1 Tab PO BID 03/29/16 Reported Align (Probiotic Product) 4 Mg Cap 1 Cap PO DAILY 03/29/16 Reported Vitamin D3 (Cholecalciferol) 1,000 Unit Tab 5,000 Units PO DAILY 03/14/16 Reported Vesicare (Solifenacin) 10 Mg Tab 10 Mg PO DAILY 03/14/16 Reported Xalatan 0.005% Oph Leslie (Latanoprost) 0.005 % Leslie 1 Drops OP HS 90 03/14/16 Reported Fosamax (Alendronate Sodium) 70 Mg Tab 70 Mg PO WK 03/14/16 Reported Systane Ultra (Polyethylene Glycol-Propylene) 1 Leslie Leslie 1 Drops OP Q4-6HOURS 11/28/15 Reported [place] Nasal (Sodium Chloride) [place] 1 Clifton OSVALDO DIRECTED 11/28/15 Reported Mycostatin (Nystatin) Powd 1 Appln TOP BID 7 11/28/15 Reported Rocaltrol Cap (Calcitriol) 0.25 Mcg Cap 0.5 Mcg PO DAILY 11/28/15 Reported Biofreeze (Menthol (Topical Analgesic)) Unknown Strength Gel 1 Appln EXT DIRECTED 11/28/15 Reported Lac-Hydrin (Ammonium Lactate) Lotn 1 Appln EXT DIRECTED 11/28/15 Reported Prilosec (Omeprazole) 20 Mg Cap 20 Mg PO DAILY 10/01/14 Reported Tylenol (Acetaminophen) 325 Mg Tab 650 Mg PO Q4H PRN 06/05/14 Reported Inpatient Medications: Current Inpatient Medications Medications (Trade) Dose Ordered Sig/Natalee Route Start Time Stop Time Status Last Admin Dose Admin Imipenem/ Cilastatin Sodium/ Dextrose (Primaxin Iv/D5 100ml) 110 ml @ 100 mls/hr Q6H IV 04/13/16 18:00 04/23/16 11:59 04/13/16 18:18 100 MLS/HR Imipenem/ Cilastatin Sodium (Consult) 1 ea UD PRN N/A 04/13/16 11:03 05/13/16 11:02 Acetaminophen (Tylenol Tab) 650 mg Q4H PRN PO 04/13/16 11:00 05/13/16 10:59 Calcitriol (Rocaltrol Cap) 0.5 mcg DAILY PO 04/14/16 09:00 05/14/16 08:59 Desmopressin Acetate (Desmopressin Acetate) 0.2 mg HS PO 04/13/16 21:00 05/13/16 20:59 Insulin Glargine (Lantus Solostar Pen) 6 unit HS SC 04/13/16 21:00 05/13/16 20:59 Latanoprost (Xalatan Oph Soln) 1 drops HS OP 04/13/16 21:00 05/13/16 20:59 Levothyroxine Sodium (Synthroid Tab) 112 mcg DAILYBB PO 04/14/16 06:00 05/14/16 06:59 Nystatin (Mycostatin Powder) 1 appln BID EXT 04/13/16 21:00 05/13/16 20:59 Potassium Chloride (Klor-Con Tab) 20 meq DAILY PO 04/14/16 09:00 05/14/16 08:59 Sodium Chloride ([place] Nasal [place]) 2 sprays DAILY OSVALDO 04/14/16 09:00 05/14/16 08:59 Heparin Sodium (Porcine) 5000 unit 5,000 unit Q12 SQ 04/13/16 21:00 05/13/16 20:59 Sodium Chloride (Nss 1000ml) 1,000 ml @ 100 mls/hr Q10H IV 04/13/16 12:30 05/13/16 10:54 04/13/16 12:32 80 MLS/HR Morphine Sulfate (MoRPHine SULFATE INJ) 2 mg Q4 PRN IV 04/13/16 12:45 04/27/16 12:44 Enteral Nutritional Formula 1 box 1 box TIDM PO 04/13/16 16:45 05/13/16 16:44 04/13/16 17:13 1 BOX Hydrocortisone Sodium Succinate/ Syringe (Solu-Cortef IV/ Syringe) 2 ml @ 4 mls/min Q8@0000,0800,1600 IV 04/13/16 17:00 05/13/16 16:59 04/13/16 17:11 4 MLS/MIN Physical Exam Vital Signs: Vital Signs Past 12 Hours Date Time Temp Pulse Resp B/P Pulse Ox O2 Delivery O2 Flow Rate FiO2 04/13/16 18:20 104/78 04/13/16 16:00 94 Room Air 04/13/16 15:17 84/74 04/13/16 15:16 110/60 04/13/16 15:15 99/69 04/13/16 11:56 37.2 114 22 126/81 94 Room Air 04/13/16 11:39 110 20 106/69 97 Room Air 04/13/16 10:42 98 Room Air 04/13/16 10:15 118 20 116/74 98 Room Air 04/13/16 09:48 37.8 04/13/16 09:46 116 22 113/69 96 Room Air 04/13/16 09:41 114 24 84/65 97 Room Air 04/13/16 09:37 118 20 89/74 100 Room Air 04/13/16 09:00 118 21 99/76 98 Room Air 04/13/16 08:53 113/79 92 Room Air 04/13/16 08:32 102 21 108/80 98 Room Air Physical Exam: Additional Comments: Patient is currently in the process of being transferred to the intensive care unit I reviewed her physical exam from her admitting physical Assessment & Plan Assessment & Plan Assessment Nephrolithiasis-sepsis Possible urinary source I reviewed the patient's CT scan Patient shows that the stent is in good position there is no hydronephrosis to suggest obstruction of the stent She is making urine via her Talbert At this point I would continue her on broad-spectrum antibiotic coverage pending urine culture and continue supportive care Since there is no evidence that her right kidney is obstructed I would not plan on changing the stent tonight especially because she is hypotensive Currently the plan will be to give her several days of intravenous antibiotics hopefully she can recover from the sepsis and then take her to the operating room where she can have the stone in the ureter dealt with.
[2016-04-13 19:34] LABS: BUN/CREATININE RATIO 13.4 (10-20); CALCIUM 7.6 mg/dl (8.5-10.1); CREATININE 1.9 mg/dl (0.60-1.20); POTASSIUM 3.8 mmol/L (3.5-5.1)
[2016-04-13] MEDS: DESMOPRESSIN ACETATE 0.1 MG TAB PO SCH (21:00)
--- NOTE | 2016-04-13 22:09 | Critical Care Consultation ---
Critical Care Consultation Date of Consultation: Apr 13, 2016. Attending Physician: Danisha Almeida MD Reason for Consultation: Sepsis, presumed urinary: Pseudomonas source History of Present Illness History is obtained from the patient's as the patient has altered mental status prior records Patient is a 81 y.o.F PMHx of MDR Pseudomonas, Hx of ureteral stent presented to the hospital with altered mentals status. Patient was discharged on 04.11.16. Patients states that she was doing well until this am. Patients states this morning patient had an episode of syncope this morning when caregivers attempted to stand her up. Patients husbands states she was unresponsive for a few seconds. EMS was called and while putting patient on the gurney patient had another syncopal episode. Patient herself states that does had suprapubic pain, dysuria and chills. I was consult for progression of disease, with hypotension and tachycardia developing on the floor. Family History Bladder cancer MOTHER Breast cancer SISTER FH: kidney disease FHx: heart disease Skin cancer MOTHER Social History Smoking Status: Unknown if Ever Smoked Drug Use: none Marital Status: Housing Status: lives with family Occupation Status: retired Allergies Coded Allergies: Amoxicillin (Verified Allergy, Intermediate, Swelling of Lips, 04/13/16) Ciprofloxacin (Verified Allergy, Intermediate, RASH, NAUSEA, 04/13/16) Sulfa Antibiotics (Verified Allergy, Intermediate, RASH, 04/13/16) Biotin (Verified Allergy, Unknown, UNKN, 04/13/16) Mirtazapine (Verified Adverse Reaction, Intermediate, altered mental status changes, 04/13/16) Oxycodone (Verified Adverse Reaction, Mild, N/V, 04/13/16) Home Medications Scheduled Alendronate Sodium (Fosamax), 70 MG PO WK Amlodipine Besylate (Amlodipine Besylate), 10 MG PO QAM Ammonium Lactate (Lac-Hydrin), 1 APPLN EXT DIRECTED Calcitriol (Rocaltrol Cap), 0.5 MCG PO DAILY Calcium Carbonate-Cholecalcife (Caltrate 600+D), 1 TAB PO BID Cholecalciferol (Vitamin D3), 5,000 UNITS PO DAILY Desmopressin Acetate (Desmopressin Acetate), 0.2 MG PO HS Hydrocortisone (Cortef), 10 MG PO DAILY@1400 Hydrocortisone (Cortef), 15 MG PO QAM Insulin Glargine (Lantus Solostar), 6 UNIT SC HS Latanoprost (Xalatan 0.005% Oph Leslie), 1 DROPS OP HS Levothyroxine Sodium (Synthroid), 112 MCG PO DAILYBB Menthol (Topical Analgesic) (Biofreeze), 1 APPLN EXT DIRECTED Nitrofurantoin Macrocrystals (Macrodantin), 100 MG PO Q12 Nystatin (Mycostatin), 1 APPLN TOP BID Omeprazole (Prilosec), 20 MG PO DAILY Pediatric Multiple Vitamin W/ (Chewables Multivitamin [place]), 1 TAB PO DAILY Polyethylene Glycol-Propylene (Systane Ultra), 1 DROPS OP q4-6hours Potassium Chloride (Klor-Con M20), 20 MEQ PO DAILY Probiotic Product (Align), 1 CAP PO DAILY Sodium Chloride (Spur Nasal), 1 SPRAY OSVALDO DIRECTED Solifenacin (Vesicare), 10 MG PO DAILY Scheduled PRN Acetaminophen (Tylenol), 650 MG PO Q4H PRN for MILD PAIN # 1-3 Current Inpatient Medications Current Inpatient Medications Medications (Trade) Dose Ordered Sig/Natalee Route Start Time Stop Time Status Last Admin Dose Admin Imipenem/ Cilastatin Sodium/ Dextrose (Primaxin Iv/D5 100ml) 110 ml @ 100 mls/hr Q6H IV 04/13/16 18:00 04/23/16 11:59 04/13/16 18:18 100 MLS/HR Imipenem/ Cilastatin Sodium (Consult) 1 ea UD PRN N/A 04/13/16 11:03 05/13/16 11:02 Acetaminophen (Tylenol Tab) 650 mg Q4H PRN PO 04/13/16 11:00 05/13/16 10:59 Calcitriol (Rocaltrol Cap) 0.5 mcg DAILY PO 04/14/16 09:00 05/14/16 08:59 Desmopressin Acetate (Desmopressin Acetate) 0.2 mg HS PO 04/13/16 21:00 05/13/16 20:59 Insulin Glargine (Lantus Solostar Pen) 6 unit HS SC 04/13/16 21:00 05/13/16 20:59 Latanoprost (Xalatan Oph Soln) 1 drops HS OP 04/13/16 21:00 05/13/16 20:59 Levothyroxine Sodium (Synthroid Tab) 112 mcg DAILYBB PO 04/14/16 06:00 05/14/16 06:59 Nystatin (Mycostatin Powder) 1 appln BID EXT 04/13/16 21:00 05/13/16 20:59 Potassium Chloride (Klor-Con Tab) 20 meq DAILY PO 04/14/16 09:00 05/14/16 08:59 Sodium Chloride (Spur Nasal [place]) 2 sprays DAILY OSVALDO 04/14/16 09:00 05/14/16 08:59 Heparin Sodium (Porcine) 5000 unit 5,000 unit Q12 SQ 04/13/16 21:00 05/13/16 20:59 Sodium Chloride (Nss 1000ml) 1,000 ml @ 100 mls/hr Q10H IV 04/13/16 12:30 05/13/16 10:54 04/13/16 12:32 80 MLS/HR Morphine Sulfate (MoRPHine SULFATE INJ) 2 mg Q4 PRN IV 04/13/16 12:45 04/27/16 12:44 Enteral Nutritional Formula 1 box 1 box TIDM PO 04/13/16 16:45 05/13/16 16:44 04/13/16 17:13 1 BOX Hydrocortisone Sodium Succinate/ Syringe (Solu-Cortef IV/ Syringe) 2 ml @ 4 mls/min Q8@0000,0800,1600 IV 04/13/16 17:00 05/13/16 16:59 04/13/16 17:11 4 MLS/MIN Review of Systems Unable to obtain due to patient condition Physical Exam Date Time Temp Pulse Resp B/P Pulse Ox O2 Delivery O2 Flow Rate FiO2 04/13/16 19:30 36.5 103 16 118/82 97 Room Air 104/71 04/13/16 18:20 104/78 04/13/16 16:00 94 Room Air 04/13/16 15:17 84/74 04/13/16 15:16 110/60 04/13/16 15:15 99/69 04/13/16 11:56 37.2 114 22 126/81 94 Room Air 04/13/16 11:39 110 20 106/69 97 Room Air 04/13/16 10:42 98 Room Air 04/13/16 10:15 118 20 116/74 98 Room Air 04/13/16 09:48 37.8 04/13/16 09:46 116 22 113/69 96 Room Air 04/13/16 09:41 114 24 84/65 97 Room Air 04/13/16 09:37 118 20 89/74 100 Room Air 04/13/16 09:00 118 21 99/76 98 Room Air 04/13/16 08:53 113/79 92 Room Air 04/13/16 08:32 102 21 108/80 98 Room Air 04/13/16 07:02 103 04/13/16 07:01 36.8 102 18 106/76 93 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 ECHO: Echo dated 12/19/2015 reviewed findings include mildly dilated LV left ventricular ejection fraction 65% normal segmental wall motion Fluids/Renal: No obvious flank tenderness IV Fluids: Normal saline at 100 mL/hr Net Urine: Starting to produce clear urine Talbert: Present GI/Nutrition: Soft nontender nondistended Feeding: Diet as tolerated, will hold if needing vasoactive's Prophylaxis: Not indicated at this time Endocrine: Last 24 hour glucose: High of 177 Insulin protocol: No; Drip: No Hematology: DVT prophylaxis: Heparin twice a day Skin/MSK: Small petechiae near the right upper chest Infectious Disease/Immunology: Tmax: 36.5 oral CVL (date): 04/13/2016 Antimicrobials: Primaxin based on previous culture results day 1. Will treat as complicated urinary tract infection, still need source control Cultures: Blood: Pending Urine: Pending Respiratory: Not indicated CSF: Indicated Laboratory Results Last 24 Hours Test 04/13/16 07:30 04/13/16 08:43 04/13/16 18:47 04/13/16 18:55 Urine Color DK YELLOW Urine Appearance CLOUDY Urine pH 5.5 Urine Specific [place] 1.015 Urine Protein 2+ Urine Glucose (UA) NEG Urine Ketones NEG Urine Occult Blood 2+ Urine Nitrite NEG Urine Bilirubin NEG Urine Urobilinogen NEG Urine Leukocyte Esterase MODERATE Urine WBC (Auto) 10-30 /hpf Urine RBC (Auto) >30 /hpf Urine Hyaline Casts (Auto) 10-30 /lpf Urine Epithelial Cells (Auto) >30 /lpf Urine Bacteria (Auto) NEG Urine Renal Epithelial Cells /lpf Urine Pathogenic Casts 0-3 GRANULAR CASTS /lpf Urine Opiates Screen NEG Urine Methadone, Qualitative NEG Urine Barbiturates NEG Urine Phencyclidine (PCP) Level NEG Ur Amphetamine/Methamphetamine NEG MDMA (Ecstasy) Screen NEG Urine Benzodiazepines Screen NEG Urine Cocaine Metabolite NEG Urine Marijuana (THC) NEG White Blood Count 22.52 K/uL Red Blood Count 4.85 M/uL Hemoglobin 15.7 g/dL Hematocrit 45.0 % Mean Corpuscular Volume 92.8 fL Mean Corpuscular Hemoglobin 32.4 pg Mean Corpuscular Hemoglobin Concent 34.9 g/dl Platelet Count 185 K/uL Mean Platelet Volume 11.3 fL RDW Standard Deviation 57.3 fL RDW Coefficient of Variation 17.0 % Nucleated RBC Absolute Count (auto) 0.09 K/uL Neutrophils % (Manual) 90.5 % Lymphocytes % (Manual) 4.3 % Monocytes % (Manual) 4.3 % Myelocytes % 0.9 % Nucleated Red Blood Cells % 0.4 % Neutrophils # (Manual) 20.38 K/uL Total Absolute Neutrophils 20.38 K/uL Lymphocytes # (Manual) 0.97 K/uL Total Absolute Lymphocytes 0.97 K/uL Monocytes # (Manual) 0.97 K/uL Myelocytes # 0.20 K/uL Sodium Level 143 mmol/L 146 mmol/L Potassium Level 4.2 mmol/L 3.8 mmol/L Chloride Level 111 mmol/L 114 mmol/L Carbon Dioxide Level 20 mmol/L 20 mmol/L Anion Gap 12.0 mmol/L 12.0 mmol/L Blood Urea Nitrogen 20 mg/dl 26 mg/dl Creatinine 1.50 mg/dl 1.90 mg/dl Est Creatinine Clear Calc Drug Dose 28.7 ml/min 22.6 ml/min Estimated GFR () 37.7 28.4 Estimated GFR (Non- 32.6 24.5 BUN/Creatinine Ratio 13.5 13.4 Random Glucose 131 mg/dl 177 mg/dl Calcium Level 8.7 mg/dl 7.6 mg/dl Phosphorus Level 3.1 mg/dl Magnesium Level 2.2 mg/dl Total Bilirubin 0.6 mg/dl Direct Bilirubin mg/dl Aspartate Amino Transf (AST/SGOT) 28 U/L Alanine Aminotransferase (ALT/SGPT) 30 U/L Alkaline Phosphatase 81 U/L Troponin I < 0.015 ng/ml C-Reactive Protein 2.81 mg/dl Total Protein 6.6 gm/dl Albumin 3.0 gm/dl Globulin 3.6 gm/dl Albumin/Globulin Ratio 0.8 Procalcitonin 0.34 ng/mL Ethyl Alcohol mg/dL < 3.0 mg/dl Lyme Disease IgG Antibody NEG Lyme Disease IgM Antibody NEG Arterial Blood pH 7.32 Arterial Blood Partial Pressure CO2 39 mmHg Arterial Blood Partial Pressure O2 33 mm/Hg Arterial Blood HCO3 20 mmol/L Arterial Blood Oxygen Saturation < 60.0 % Arterial Blood Base Excess -6.1 mEq/L Arterial Blood Gas Delivery ROOM AIR Huey Test POS Prothrombin Time 11.8 SECONDS Prothromb Time International Ratio 1.1 Activated Partial Thromboplast Time 25.5 SECONDS Partial Thromboplastin Ratio 1.0 Lactic Acid Level 3.7 mmol/L Assessment & Plan Reason Critically Ill: Patient is an 81-year-old female with a history of nephrolithiasis with recurrent urinary tract infection, pseudomonas pansensitive. Presents today with worsening hypotension tachycardia likely sepsis related to a urinary source. PLAN: Neuro: Continue to monitor, showed improved with clearing lactate and resolution of sepsis Resp: Tolerating room air at this time CV: Hypotension responding to fluids we'll continue with fluid administration. Previously had normal EF Fluids/Renal: Bolus normal saline, Talbert present ID: Reviewed infectious disease consult, continue Primaxin based on prior culture and sensitivities GI/Nutrition: Diet as tolerated Heme: Prophylaxis of heparin twice a day, anticipate delusional anemia tomorrow Endocrine: History of boyd hypopituitarism, continue repletion adding stress dose steroids I have personally spent 60 minutes of critical care time in the direct management of this patient. This is a life/limb threatening event. This includes time spent evaluating patient, direct bedside care, chart review, placing orders, interpretation of diagnostic studies, discussion with consultants, patient, and family members, as well as other required patient management activities. This time is exclusive of all separately billable procedures, and teaching time and separate from and in addition to any other critical care service time.
--- NOTE | 2016-04-13 22:10 | DIAGNOSTIC IMAGING REPORT ---
CHEST ONE VIEW PORTABLE HISTORY: line placement COMPARISON: Chest 04/13/2016. FINDINGS: Interval placement of right subclavian central venous catheter which terminates in the distal SVC. No pneumothorax. The heart remains mildly enlarged. There are low lung volumes. No pleural effusions. Patchy densities within the left lung base persist. IMPRESSION: 1. Right subclavian central venous catheter terminates in the distal SVC. No pneumothorax. 2. Patchy density within the left lung base persist. This likely represent atelectasis. Electronically signed by: Joey Archer M.D. 04/13/2016 10:09 PM
[2016-04-13] MEDS: INSULIN GLARGINE SOLOSTAR 100 UNITS/ML 3 ML PEN SC SCH (22:27)
[2016-04-13] MEDS: LATANOPROST 0.005% OP SOLN 2.5 ML BTL OP SCH (22:28)
[2016-04-13] MEDS: HEPARIN SOD 5000 UNIT/0.5 ML CARP SQ SCH (22:28)
[2016-04-13] MEDS: NYSTATIN POWDER 15GM BTL EXT SCH (22:29)
[2016-04-14] VITALS (25 sets, daily range): BP systolic 103–146; BP diastolic 57–90; PULSE 93–117; TEMP 36.7–37.6; O2SAT 93–96
[2016-04-14] MEDS: IMIPENEM-CILASTATIN 250 MG in DEXTROSE 5% 100ML 100 ML IV SCH ×4 (05:37→23:51)
[2016-04-14] MEDS ORDERED: GLUCOSE 10 TABS/TUBE PO PRN (05:45)
[2016-04-14] MEDS ORDERED: DEXTROSE 50% 50 ML SYR IV PRN (05:45)
[2016-04-14] MEDS ORDERED: PHARMACY GLYCEMIC MGMT CONSULT PRN (05:45)
[2016-04-14] MEDS ORDERED: GLUCAGON FOR INJ 1 MG VIAL SQ PRN (05:45)
[2016-04-14] MEDS ORDERED: GLUCOSE 40% GEL 15 GM TUBE PO PRN (05:45)
[2016-04-14] MEDS ORDERED: INSULIN ASPART 100 UNITS/ML 3 ML PEN SC SCH (06:00)
[2016-04-14 06:26] LABS: HEMATOCRIT 35.8 % (37-47); MEAN CELL VOLUME 92.5 fL (80-100); MEAN CORPUSCULAR HEMOGLOBIN 31.3 pg (25-34); MEAN CORPUSCULAR HGB CONC 33.8 g/dl (32-36); MEAN PLATELET VOLUME 11.5 fL (7.4-10.4); PLATELET COUNT 167 K/uL (130-400); RED BLOOD COUNT 3.87 M/uL (4.2-5.4); WHITE BLOOD COUNT 32.57 K/uL (4.8-10.8)
[2016-04-14 06:32] LABS: ESTIMATED AVERAGE GLUCOSE 143 mg/dl; HA1C FLAG Normal (Normal)
[2016-04-14 06:46] LABS: BUN/CREATININE RATIO 13.7 (10-20); CALCIUM 7.7 mg/dl (8.5-10.1); CREATININE 1.4 mg/dl (0.60-1.20); POTASSIUM 3.8 mmol/L (3.5-5.1)
[2016-04-14] MEDS: BOOST BREEZE NUTRITION DRINK 1 BOX PO SCH ×2 (07:15→08:53)
[2016-04-14] MEDS: LEVOTHYROXINE 112 MCG TAB PO SCH (08:30)
[2016-04-14] MEDS: HYDROCORTISONE IV 100 MG in SYRINGE 0 ML IV SCH ×3 (08:30→23:52)
[2016-04-14] MEDS: CALCITRIOL 0.25 MCG CAP PO SCH (08:31)
[2016-04-14] MEDS: POTASSIUM CHLORIDE 20 MEQ TABCR PO SCH (08:32)
[2016-04-14] MEDS: HEPARIN SOD 5000 UNIT/0.5 ML CARP SQ SCH ×2 (08:32→21:31)
[2016-04-14] MEDS ORDERED: LACTATED RINGER'S 1000ML 1,000 ML IV ONE (08:45)
[2016-04-14] MEDS ORDERED: AMLODIPINE BESYLATE 5 MG TAB PO SCH (09:00)
[2016-04-14] MEDS: SODIUM CHLORIDE 0.65% NA SOLN 45 ML (OCEAN) NAE SCH (09:00)
[2016-04-14] MEDS ORDERED: HYDROCORTISONE 10 MG TAB PO SCH (09:00)
--- NOTE | 2016-04-14 09:38 | Critical Care Progress Note ---
Critical Care Progress Note Date of Service Apr 14, 2016. Attending Dr. 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 ECHO: Echo dated 12/19/2015 reviewed findings include mildly dilated LV left ventricular ejection fraction 65% normal segmental wall motion Fluids/Renal: No obvious flank tenderness Talbert: Present GI/Nutrition: Soft nontender nondistended Feeding: Diet as tolerated, will hold if needing vasoactive's Prophylaxis: Not indicated at this time Hematology: DVT prophylaxis: Heparin twice a day Skin/MSK: Small petechiae near the right upper chest Infectious Disease/Immunology: Tmax: 37.6 CVL (date): 04/13/2016 Antimicrobials: Primaxin based on previous culture results day 1. Will treat as complicated urinary tract infection, still need source control Cultures: Blood: Pending Urine: Pending Respiratory: Not indicated Assessment & Plan PLAN: Neuro: Mentation improved Resp: Operating room air CV: Remains off pressors, tachycardia improved with volume resuscitation Fluids/Renal: Hypernatremia and hyperchloremia secondary to aggressive saline resuscitation. Bolus with lactated Ringer's for volume. Initiating D5W at 100 per hour for free water replacement, estimated deficit 2 L, recheck BMP in 12 hours. Patient did not get DDAVP overnight, this will likely improve once DDAVP is given. Discussed with pharmacy DDAVP dose 1:18 intranasal to oral form, we do not have intranasal DDAVP at this time, reported IV dose to intranasal dose 1:10. We will administer 1 g DDAVP rechecking renal profiles ID: Leukemoid reaction secondary to sepsis. GI/Nutrition: Bedside swallowing evaluation Heme: Dilutional anemia Endocrine: Hypopituitarism DDAVP intranasal while unable to take PO Continue stress dose steroids By mouth levothyroxine on hold, IV levothyroxine at 20% decreased dose I discussed the case with the hospitalist. Patient's mental status had improved and was able to take her oral medications. Close follow-up of her renal profile Data Medications: Current Inpatient Medications Medications (Trade) Dose Ordered Sig/Natalee Route Start Time Stop Time Status Last Admin Dose Admin Imipenem/ Cilastatin Sodium/ Dextrose (Primaxin Iv/D5 100ml) 110 ml @ 100 mls/hr Q6H IV 04/13/16 18:00 04/23/16 11:59 04/14/16 05:37 100 MLS/HR Imipenem/ Cilastatin Sodium (Consult) 1 ea UD PRN N/A 04/13/16 11:03 05/13/16 11:02 Acetaminophen (Tylenol Tab) 650 mg Q4H PRN PO 04/13/16 11:00 05/13/16 10:59 Calcitriol (Rocaltrol Cap) 0.5 mcg DAILY PO 04/14/16 09:00 05/14/16 08:59 Desmopressin Acetate (Desmopressin Acetate) 0.2 mg HS PO 04/13/16 21:00 05/13/16 20:59 Future Hold Insulin Glargine (Lantus Solostar Pen) 6 unit HS SC 04/13/16 21:00 05/13/16 20:59 04/13/16 22:27 6 UNIT Latanoprost (Xalatan Oph Soln) 1 drops HS OP 04/13/16 21:00 05/13/16 20:59 04/13/16 22:28 1 DROPS Levothyroxine Sodium (Synthroid Tab) 112 mcg DAILYBB PO 04/14/16 06:00 05/14/16 06:59 Nystatin (Mycostatin Powder) 1 appln BID EXT 04/13/16 21:00 05/13/16 20:59 04/13/16 22:29 1 APPLN Potassium Chloride (Klor-Con Tab) 20 meq DAILY PO 04/14/16 09:00 05/14/16 08:59 Sodium Chloride ([place] Nasal [place]) 2 sprays DAILY OSVALDO 04/14/16 09:00 05/14/16 08:59 Heparin Sodium (Porcine) 5000 unit 5,000 unit Q12 SQ 04/13/16 21:00 05/13/16 20:59 04/13/16 22:28 5,000 UNIT Sodium Chloride (Nss 1000ml) 1,000 ml @ 100 mls/hr Q10H IV 04/13/16 12:30 05/13/16 10:54 04/13/16 04:00 100 MLS/HR Morphine Sulfate (MoRPHine SULFATE INJ) 2 mg Q4 PRN IV 04/13/16 12:45 04/27/16 12:44 Enteral Nutritional Formula 1 box 1 box TIDM PO 04/13/16 16:45 05/13/16 16:44 04/13/16 17:13 1 BOX Hydrocortisone Sodium Succinate/ Syringe (Solu-Cortef IV/ Syringe) 2 ml @ 4 mls/min Q8@0000,0800,1600 IV 04/13/16 17:00 05/13/16 16:59 04/13/16 23:54 4 MLS/MIN Miscellaneous Information (Consult Glycemic Management Pharmacy) 1 ea UD PRN N/A 04/14/16 05:45 05/14/16 05:44 Glucose (Glucose 40% Gel) 15-30 GRAMS 15 GRAMS... UD PRN PO 04/14/16 05:45 05/14/16 05:44 Glucose (Glucose Chew Tab) 4-8 Tablets 4 Tabl... UD PRN PO 04/14/16 05:45 05/14/16 05:44 Dextrose (Dextrose 50% 50ML Syringe) 25-50ML OF 50% DW IV FOR... UD PRN IV 04/14/16 05:45 05/14/16 05:44 Glucagon (Glucagon Inj) 1 mg UD PRN SQ 04/14/16 05:45 05/14/16 05:44 Insulin Aspart (novoLOG ASPART) SLIDING SCALE ACHS SC 04/14/16 11:00 05/14/16 10:59 I & O: 24-Hour Column 04/14/16 07:59 Intake Total 5835 ml Output Total 2725 ml Balance 3110 ml Vital Signs: Date Time Temp Pulse Resp B/P Pulse Ox O2 Delivery O2 Flow Rate FiO2 04/14/16 06:00 37.6 97 22 116/69 94 Room Air 04/14/16 05:00 94 18 110/82 94 Room Air 04/14/16 04:00 95 Room Air 04/14/16 04:00 37.5 98 16 115/67 95 Room Air 04/14/16 03:00 97 20 114/80 95 Room Air 04/14/16 02:00 37.3 101 24 103/57 93 Room Air 04/14/16 00:59 99 130/86 95 Room Air 04/14/16 00:00 37.2 97 18 140/90 96 Room Air 04/14/16 00:00 96 Room Air 04/13/16 23:00 37.6 95 17 122/62 94 Room Air 04/13/16 21:59 98 18 111/67 95 Room Air 04/13/16 21:55 101 42 123/74 97 Room Air 04/13/16 20:45 93 Room Air 04/13/16 20:32 36.5 103 16 97 04/13/16 20:26 37.5 102 16 115/71 95 Room Air 04/13/16 19:30 36.5 103 16 118/82 97 Room Air 104/71 04/13/16 18:20 104/78 04/13/16 16:00 94 Room Air 04/13/16 15:17 84/74 04/13/16 15:16 110/60 04/13/16 15:15 99/69 04/13/16 11:56 37.2 114 22 126/81 94 Room Air 04/13/16 11:39 110 20 106/69 97 Room Air 04/13/16 10:42 98 Room Air 04/13/16 10:15 118 20 116/74 98 Room Air 04/13/16 09:48 37.8 04/13/16 09:46 116 22 113/69 96 Room Air 04/13/16 09:41 114 24 84/65 97 Room Air 04/13/16 09:37 118 20 89/74 100 Room Air 04/13/16 09:00 118 21 99/76 98 Room Air 04/13/16 08:53 113/79 92 Room Air Laboratory Results: Last 24 Hours Test 04/13/16 08:43 04/13/16 18:47 04/13/16 18:55 04/13/16 21:40 White Blood Count 22.52 K/uL Red Blood Count 4.85 M/uL Hemoglobin 15.7 g/dL Hematocrit 45.0 % Mean Corpuscular Volume 92.8 fL Mean Corpuscular Hemoglobin 32.4 pg Mean Corpuscular Hemoglobin Concent 34.9 g/dl Platelet Count 185 K/uL Mean Platelet Volume 11.3 fL RDW Standard Deviation 57.3 fL RDW Coefficient of Variation 17.0 % Nucleated RBC Absolute Count (auto) 0.09 K/uL Neutrophils % (Manual) 90.5 % Lymphocytes % (Manual) 4.3 % Monocytes % (Manual) 4.3 % Myelocytes % 0.9 % Nucleated Red Blood Cells % 0.4 % Neutrophils # (Manual) 20.38 K/uL Total Absolute Neutrophils 20.38 K/uL Lymphocytes # (Manual) 0.97 K/uL Total Absolute Lymphocytes 0.97 K/uL Monocytes # (Manual) 0.97 K/uL Myelocytes # 0.20 K/uL Sodium Level 143 mmol/L 146 mmol/L Potassium Level 4.2 mmol/L 3.8 mmol/L Chloride Level 111 mmol/L 114 mmol/L Carbon Dioxide Level 20 mmol/L 20 mmol/L Anion Gap 12.0 mmol/L 12.0 mmol/L Blood Urea Nitrogen 20 mg/dl 26 mg/dl Creatinine 1.50 mg/dl 1.90 mg/dl Est Creatinine Clear Calc Drug Dose 28.7 ml/min 22.6 ml/min Estimated GFR () 37.7 28.4 Estimated GFR (Non- 32.6 24.5 BUN/Creatinine Ratio 13.5 13.4 Random Glucose 131 mg/dl 177 mg/dl Calcium Level 8.7 mg/dl 7.6 mg/dl Phosphorus Level 3.1 mg/dl Magnesium Level 2.2 mg/dl Total Bilirubin 0.6 mg/dl Direct Bilirubin mg/dl Aspartate Amino Transf (AST/SGOT) 28 U/L Alanine Aminotransferase (ALT/SGPT) 30 U/L Alkaline Phosphatase 81 U/L Troponin I < 0.015 ng/ml C-Reactive Protein 2.81 mg/dl Total Protein 6.6 gm/dl Albumin 3.0 gm/dl Globulin 3.6 gm/dl Albumin/Globulin Ratio 0.8 Procalcitonin 0.34 ng/mL Ethyl Alcohol mg/dL < 3.0 mg/dl Lyme Disease IgG Antibody NEG Lyme Disease IgM Antibody NEG Arterial Blood pH 7.32 Arterial Blood Partial Pressure CO2 39 mmHg Arterial Blood Partial Pressure O2 33 mm/Hg Arterial Blood HCO3 20 mmol/L Arterial Blood Oxygen Saturation < 60.0 % Arterial Blood Base Excess -6.1 mEq/L Arterial Blood Gas Delivery ROOM AIR Huey Test POS Prothrombin Time 11.8 SECONDS Prothromb Time International Ratio 1.1 Activated Partial Thromboplast Time 25.5 SECONDS Partial Thromboplastin Ratio 1.0 Lactic Acid Level 3.7 mmol/L 3.6 mmol/L Test 04/13/16 22:25 04/14/16 05:22 04/14/16 05:25 Bedside Glucose 182 mg/dl 231 mg/dl White Blood Count 32.57 K/uL Red Blood Count 3.87 M/uL Hemoglobin 12.1 g/dL Hematocrit 35.8 % Mean Corpuscular Volume 92.5 fL Mean Corpuscular Hemoglobin 31.3 pg Mean Corpuscular Hemoglobin Concent 33.8 g/dl RDW Standard Deviation 58.0 fL RDW Coefficient of Variation 17.2 % Platelet Count 167 K/uL Mean Platelet Volume 11.5 fL Sodium Level 152 mmol/L Potassium Level 3.8 mmol/L Chloride Level 121 mmol/L Carbon Dioxide Level 20 mmol/L Anion Gap 11.0 mmol/L Blood Urea Nitrogen 19 mg/dl Creatinine 1.40 mg/dl Est Creatinine Clear Calc Drug Dose 29.9 ml/min Estimated GFR () 41.0 Estimated GFR (Non- 35.4 BUN/Creatinine Ratio 13.7 Random Glucose 233 mg/dl Estimated Average Glucose 143 mg/dl Hemoglobin A1c 6.6 % Calcium Level 7.7 mg/dl
[2016-04-14] MEDS ORDERED: LEVOTHYROXINE SODIUM INJ 88 MCG in SYRINGE 0 ML IV SCH (09:45)
[2016-04-14] MEDS ORDERED: LEVOTHYROXINE SODIUM 20 MCG/1 ML IV ONE (09:45)
[2016-04-14] MEDS ORDERED: NURSING VERBAL MED ORDER ONE (10:00)
[2016-04-14] MEDS ORDERED: DESMOPRESSIN ACETATE 0.1 MG TAB PO SCH (10:00)
[2016-04-14] MEDS: DESMOPRESSIN ACETATE INJ 1 MCG in SODIUM CHLORIDE 0.9% 50ML 50 ML IV SCH (10:00)
[2016-04-14] MEDS: DEXTROSE 5% 1000ML 1,000 ML IV SCH ×2 (11:22→21:30)
[2016-04-14] MEDS: NYSTATIN POWDER 15GM BTL EXT SCH ×2 (11:23→21:26)
[2016-04-14] MEDS: BOOST GLUCOSE CONTROL PO SCH ×2 (11:30→16:18)
--- NOTE | 2016-04-14 11:34 | Progress Note ---
Subjective Date of Service: Apr 14, 2016. Subjective Pt evaluation today including: conversation w/ family Patient's afebrile blood pressure is improved Family says she is more alert today although still somewhat confused Urine output is good Cultures are still pending Problem List Medical Problems: (1) Acute kidney injury Status: Acute (2) VERO (acute kidney injury) Status: Acute (3) Altered mental status Status: Acute (4) Altered mental status Status: Acute (5) Altered mental status Status: Acute (6) Altered mental status Status: Acute (7) Altered mental status Status: Acute (8) Dehydration Status: Acute (9) Dysarthria Status: Acute (10) Hydronephrosis Status: Acute (11) Hydronephrosis Status: Acute (12) Kidney stone Status: Acute (13) Leukocytosis Status: Acute (14) Nausea & vomiting Status: Acute (15) Pleural effusion Status: Acute (16) Right ureteral calculus Status: Acute (17) Sepsis Status: Acute (18) Sepsis Status: Acute (19) Urinary tract infection Status: Acute Objective Vital Signs Date Time Temp Pulse Resp B/P Pulse Ox O2 Delivery O2 Flow Rate FiO2 04/14/16 08:15 36.7 102 18 104/64 93 Room Air 04/14/16 08:15 93 Room Air 04/14/16 06:00 37.6 97 22 116/69 94 Room Air 04/14/16 05:00 94 18 110/82 94 Room Air 04/14/16 04:00 95 Room Air 04/14/16 04:00 37.5 98 16 115/67 95 Room Air 04/14/16 03:00 97 20 114/80 95 Room Air 04/14/16 02:00 37.3 101 24 103/57 93 Room Air 04/14/16 00:59 99 130/86 95 Room Air 04/14/16 00:00 37.2 97 18 140/90 96 Room Air 04/14/16 00:00 96 Room Air 04/13/16 23:00 37.6 95 17 122/62 94 Room Air 04/13/16 21:59 98 18 111/67 95 Room Air 04/13/16 21:55 101 42 123/74 97 Room Air 04/13/16 20:45 93 Room Air 04/13/16 20:32 36.5 103 16 97 04/13/16 20:26 37.5 102 16 115/71 95 Room Air 04/13/16 19:30 36.5 103 16 118/82 97 Room Air 104/71 04/13/16 18:20 104/78 04/13/16 16:00 94 Room Air 04/13/16 15:17 84/74 04/13/16 15:16 110/60 04/13/16 15:15 99/69 04/13/16 11:56 37.2 114 22 126/81 94 Room Air 04/13/16 11:39 110 20 106/69 97 Room Air Physical Exam General Appearance: no apparent distress Laboratory Results Last 24 Hours Test 04/13/16 18:47 04/13/16 18:55 04/13/16 21:40 04/13/16 22:25 Arterial Blood pH 7.32 Arterial Blood Partial Pressure CO2 39 mmHg Arterial Blood Partial Pressure O2 33 mm/Hg Arterial Blood HCO3 20 mmol/L Arterial Blood Oxygen Saturation < 60.0 % Arterial Blood Base Excess -6.1 mEq/L Arterial Blood Gas Delivery ROOM AIR Huey Test POS Prothrombin Time 11.8 SECONDS Prothromb Time International Ratio 1.1 Activated Partial Thromboplast Time 25.5 SECONDS Partial Thromboplastin Ratio 1.0 Sodium Level 146 mmol/L Potassium Level 3.8 mmol/L Chloride Level 114 mmol/L Carbon Dioxide Level 20 mmol/L Anion Gap 12.0 mmol/L Blood Urea Nitrogen 26 mg/dl Creatinine 1.90 mg/dl Est Creatinine Clear Calc Drug Dose 22.6 ml/min Estimated GFR () 28.4 Estimated GFR (Non- 24.5 BUN/Creatinine Ratio 13.4 Random Glucose 177 mg/dl Lactic Acid Level 3.7 mmol/L 3.6 mmol/L Calcium Level 7.6 mg/dl Bedside Glucose 182 mg/dl Test 04/14/16 05:22 04/14/16 05:25 White Blood Count 32.57 K/uL Red Blood Count 3.87 M/uL Hemoglobin 12.1 g/dL Hematocrit 35.8 % Mean Corpuscular Volume 92.5 fL Mean Corpuscular Hemoglobin 31.3 pg Mean Corpuscular Hemoglobin Concent 33.8 g/dl RDW Standard Deviation 58.0 fL RDW Coefficient of Variation 17.2 % Platelet Count 167 K/uL Mean Platelet Volume 11.5 fL Sodium Level 152 mmol/L Potassium Level 3.8 mmol/L Chloride Level 121 mmol/L Carbon Dioxide Level 20 mmol/L Anion Gap 11.0 mmol/L Blood Urea Nitrogen 19 mg/dl Creatinine 1.40 mg/dl Est Creatinine Clear Calc Drug Dose 29.9 ml/min Estimated GFR () 41.0 Estimated GFR (Non- 35.4 BUN/Creatinine Ratio 13.7 Random Glucose 233 mg/dl Estimated Average Glucose 143 mg/dl Hemoglobin A1c 6.6 % Calcium Level 7.7 mg/dl Bedside Glucose 231 mg/dl Assessment and Plan Assessment #1 nephrolithiasis Patient has an indwelling stent on the right with a 6 mm stone along the stent there is no hydronephrosis At this point she needs continue with IV antibiotics and supportive care Hopefully she can have ureteroscopy and laser lithotripsy while she is in the hospital after she recovers from her acute illness
[2016-04-14] MEDS: INSULIN ASPART 100 UNITS/ML 3 ML PEN SC SCH ×3 (11:43→21:28)
--- NOTE | 2016-04-14 12:25 | Progress Note ---
Subjective Date of Service: Apr 14, 2016. Subjective Pt evaluation today including: conversation w/ patient, conversation w/ family , physical exam, chart review, lab review, review of studies, conversation w/ food consultant, review of inpatient medication list last pm, patient's blood pressure was low in the 80s systolically, tachy cardia , was given for NS bolus and hydrocortisone 100mg IV q8h STAT. and transferred to unit this am, tired, in rest, open eyes to me, talk a little, feeling tire, no pain, no f/c Problem List Medical Problems: (1) Acute kidney injury Status: Acute (2) VERO (acute kidney injury) Status: Acute (3) Altered mental status Status: Acute (4) Altered mental status Status: Acute (5) Altered mental status Status: Acute (6) Altered mental status Status: Acute (7) Altered mental status Status: Acute (8) Dehydration Status: Acute (9) Dysarthria Status: Acute (10) Hydronephrosis Status: Acute (11) Hydronephrosis Status: Acute (12) Kidney stone Status: Acute (13) Leukocytosis Status: Acute (14) Nausea & vomiting Status: Acute (15) Pleural effusion Status: Acute (16) Right ureteral calculus Status: Acute (17) Sepsis Status: Acute (18) Sepsis Status: Acute (19) Urinary tract infection Status: Acute Review of Systems Constitutional: + fatigue, + weakness, No chills, No fever, No problem reported , No sweats, No weight loss Eyes: No diplopia, No discharge, No eye pain, No redness, No worsening of vision ENT: No dental problems, No hearing loss, No nasal symptoms, No sore throat, No tinnitus, No trouble swallowing, No unusual epistaxis Respiratory: No cough, No dyspnea at rest, No dyspnea on exertion, No hemoptysis, No shortness of breath, No sputum, No wheezing Cardiac: No PND, No chest pain, No claudication, No edema, No orthopnea, No palpitations Abdomen: No constipation, No diarrhea, No nausea, No pain, No vomiting Musculoskeletal: No calf pain, No joint pain, No muscle pain, No swelling Female : No abnormal vaginal bleeding, No dysuria, No hematuria, No incontinence, No urinary frequency, No vaginal discharge Neurologic: No balance problems, No memory loss, No numbness/tingling, No paralysis, No vertigo, No weakness Psychiatric: No anhedonism, No anxiety, No depression symptoms, No insomnia, No substance abuse Heme: No abnormal bleeding/bruising, No clotting problems, No night sweats, No swollen lymph nodes Endo: No excessive thirst, No excessive urination, No fatigue Skin: No bleeding, No color change, No itch, No new/changing skin lesions, No rash Objective Vital Signs Date Time Temp Pulse Resp B/P Pulse Ox O2 Delivery O2 Flow Rate FiO2 04/14/16 11:59 36.7 107 19 119/75 95 Room Air 04/14/16 11:30 94 Room Air 04/14/16 11:00 104 15 95 04/14/16 10:59 105 16 140/89 95 04/14/16 10:00 114 23 93 04/14/16 09:59 112 24 128/69 93 04/14/16 09:00 117 16 96 04/14/16 08:15 36.7 102 18 104/64 93 Room Air 04/14/16 08:15 93 Room Air 04/14/16 06:00 37.6 97 22 116/69 94 Room Air 04/14/16 05:00 94 18 110/82 94 Room Air 04/14/16 04:00 95 Room Air 04/14/16 04:00 37.5 98 16 115/67 95 Room Air 04/14/16 03:00 97 20 114/80 95 Room Air 04/14/16 02:00 37.3 101 24 103/57 93 Room Air 04/14/16 00:59 99 130/86 95 Room Air 04/14/16 00:00 37.2 97 18 140/90 96 Room Air 04/14/16 00:00 96 Room Air 04/13/16 23:00 37.6 95 17 122/62 94 Room Air 04/13/16 21:59 98 18 111/67 95 Room Air 04/13/16 21:55 101 42 123/74 97 Room Air 04/13/16 20:45 93 Room Air 04/13/16 20:32 36.5 103 16 97 04/13/16 20:26 37.5 102 16 115/71 95 Room Air 04/13/16 19:30 36.5 103 16 118/82 97 Room Air 104/71 04/13/16 18:20 104/78 04/13/16 16:00 94 Room Air 04/13/16 15:17 84/74 04/13/16 15:16 110/60 04/13/16 15:15 99/69 Physical Exam General Appearance: WD/WN, no apparent distress, + obese, + pertinent finding ( tired, not looks lethargic, I know her , it is in her baseline of mentle dattus) Eyes: normal inspection, PERRL, EOMI, sclerae normal ENT: normal ENT inspection, hearing grossly normal, pharynx normal Neck: supple, no adenopathy, thyroid normal, no JVD, no carotid bruits, trachea midline Respiratory/Chest: chest non-tender, normal breath sounds, no respiratory distress, no accessory muscle use, + decreased breath sounds Cardiovascular: regular rate, rhythm, no edema, no gallop, no JVD, no murmur Abdomen: normal bowel sounds, non tender, soft, no organomegaly, no pulsatile mass Extremities: normal range of motion, non-tender, normal inspection, no pedal edema, no calf tenderness, normal capillary refill, pelvis stable 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, no motor/sensory deficits, alert, normal mood/affect, oriented x 3 Skin: normal color, warm/dry, no rash Lymphatic: no adenopathy Laboratory Results Last 24 Hours Test 04/13/16 18:47 04/13/16 18:55 04/13/16 21:40 04/13/16 22:25 Arterial Blood pH 7.32 Arterial Blood Partial Pressure CO2 39 mmHg Arterial Blood Partial Pressure O2 33 mm/Hg Arterial Blood HCO3 20 mmol/L Arterial Blood Oxygen Saturation < 60.0 % Arterial Blood Base Excess -6.1 mEq/L Arterial Blood Gas Delivery ROOM AIR Huey Test POS Prothrombin Time 11.8 SECONDS Prothromb Time International Ratio 1.1 Activated Partial Thromboplast Time 25.5 SECONDS Partial Thromboplastin Ratio 1.0 Sodium Level 146 mmol/L Potassium Level 3.8 mmol/L Chloride Level 114 mmol/L Carbon Dioxide Level 20 mmol/L Anion Gap 12.0 mmol/L Blood Urea Nitrogen 26 mg/dl Creatinine 1.90 mg/dl Est Creatinine Clear Calc Drug Dose 22.6 ml/min Estimated GFR () 28.4 Estimated GFR (Non- 24.5 BUN/Creatinine Ratio 13.4 Random Glucose 177 mg/dl Lactic Acid Level 3.7 mmol/L 3.6 mmol/L Calcium Level 7.6 mg/dl Bedside Glucose 182 mg/dl Test 04/14/16 05:22 04/14/16 05:25 04/14/16 11:41 04/14/16 11:58 White Blood Count 32.57 K/uL Red Blood Count 3.87 M/uL Hemoglobin 12.1 g/dL Hematocrit 35.8 % Mean Corpuscular Volume 92.5 fL Mean Corpuscular Hemoglobin 31.3 pg Mean Corpuscular Hemoglobin Concent 33.8 g/dl RDW Standard Deviation 58.0 fL RDW Coefficient of Variation 17.2 % Platelet Count 167 K/uL Mean Platelet Volume 11.5 fL Sodium Level 152 mmol/L Potassium Level 3.8 mmol/L Chloride Level 121 mmol/L Carbon Dioxide Level 20 mmol/L Anion Gap 11.0 mmol/L Blood Urea Nitrogen 19 mg/dl Creatinine 1.40 mg/dl Est Creatinine Clear Calc Drug Dose 29.9 ml/min Estimated GFR () 41.0 Estimated GFR (Non- 35.4 BUN/Creatinine Ratio 13.7 Random Glucose 233 mg/dl Estimated Average Glucose 143 mg/dl Hemoglobin A1c 6.6 % Calcium Level 7.7 mg/dl Bedside Glucose 231 mg/dl 220 mg/dl Assessment and Plan 81 y.o.F PMHx of MDR Pseudomonas, Hx of ureteral stent was admitted on 2015 to the hospital with altered mentals status. was transferred to ICU last pm b/c sepsis with signs of tachycardia, hypotensive , worsening leukocytosis relative stable in icu today sepsis likely secondary to UTI, ureter stone and hx of ureter stent Leukemoid reaction secondary to sepsis. 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
[2016-04-14 12:26] LABS: BUN/CREATININE RATIO 12.7 (10-20); CALCIUM 7.8 mg/dl (8.5-10.1); CREATININE 1.2 mg/dl (0.60-1.20); POTASSIUM 3.4 mmol/L (3.5-5.1)
--- NOTE | 2016-04-14 16:46 | Procedure Note ---
Procedure Note Procedure Date Apr 13, 2016. Central Line Procedure time out: side/site verified, patient ID confirmed, sterile procedure used Consent obtained: written Performed by: attending Indications: poor venous access, central drug admin. Contraindications: other (none) Prep: chlorhexadine prep Anesthesia: lidocaine 1% without epi Volume anesthetic (ml's): 2 Central line lumen: triple Central line location: internal jugular (R) Additional details: ultrasound guidance Complications: other (Attempted x3, unable to pass wire, procedure in IJ aborted. see next procedure note) Patient tolerated procedure: well Procedure Note Procedure Date Apr 13, 2016. Central Line Consent obtained: written Time of procedure: 22:30 Performed by: attending Indications: poor venous access, central drug admin. Prep: chlorhexadine prep Anesthesia: lidocaine 1% without epi Volume anesthetic (ml's): 2 Central line lumen: triple Central line location: subclavian (R) Additional details: Selinger technique used, line sutured, good blood return CXR: appropriate position, no pneumothorax Complications: none Patient tolerated procedure: well Post-procedure vital signs: reviewed and stable
--- NOTE | 2016-04-14 16:53 | Procedure Note ---
Procedure Note Procedure Date Apr 14, 2016.
--- NOTE | 2016-04-14 17:02 | Pharmacy Progress Note ---
Glycemic Control Intl Consult Date of Service Apr 14, 2016. Scope Glycemic Pharmacist consulted by Dr Prasad on 04/14/16 for glycemic control and to write orders per [facility] inpatient glycemic control protocol Objective Weight (Kilograms): 79.700 Accuchecks BSG (last 24hrs): Test 04/13/16 18:55 04/13/16 22:25 04/14/16 05:22 04/14/16 05:25 Random Glucose 177 mg/dl (70-99) 233 mg/dl (70-99) Bedside Glucose 182 mg/dl (70-90) 231 mg/dl (70-90) Test 04/14/16 11:41 04/14/16 11:58 04/14/16 16:04 04/14/16 16:10 Bedside Glucose 220 mg/dl (70-90) 178 mg/dl (70-90) Random Glucose 241 mg/dl (70-99) Laboratory Data (last 24hrs) Test 04/13/16 18:55 04/14/16 05:22 04/14/16 11:58 04/14/16 16:10 Anion Gap 12.0 mmol/L 11.0 mmol/L 10.0 mmol/L BUN/Creatinine Ratio 13.4 13.7 12.7 Blood Urea Nitrogen 26 mg/dl 19 mg/dl 15 mg/dl Creatinine 1.90 mg/dl 1.40 mg/dl 1.20 mg/dl Potassium Level 3.8 mmol/L 3.8 mmol/L 3.4 mmol/L Sodium Level 146 mmol/L 152 mmol/L 152 mmol/L Hemoglobin A1c 6.6 % White Blood Count 32.57 K/uL HbA1c Test 04/14/16 05:22 Hemoglobin A1c 6.6 % (4.5-5.6) H Recent Pertinent Medications Outpatient Anti-diabetic Regimen: * Lantus 6 units hs, note also hydrocortisone 15 mg qam, 10 mg q afternoon * A1c = 6.6 % 04/14/16 This may indicate too-tight glycemic control with some lows in an elderly patient. The patient is currently receiving: * Basal insulin: Lantus 6 units every hs * Correctional Insulin: Novolog Correction per scale q6h Goal Range: Low 120 mg/dL - High 160 mg/dL Correction Factor: 30 mg/dL/unit * Prandial insulin: Per carb ratio of 1 unit per 9 grams CHO consum Risk Factors for Insulin Resistance: * Steroids: hydrocortisone 100 mg q6h * Infection: sepsis,UTI, on imipenem * Pressors: no * IVF: NS @100 ml/hr, chg to D5W@100 ml/hr (for hypernatremia) * Recent Surgery: no * Diet: regular dental soft, poor po intake, added Boost GC tidm (refusing so far) * Mechanical Ventilation: no Assessment & Plan ASSESSMENT: * ADA & AACE recommend a goal blood sugar range 140-180 mg/dl for the majority of critically ill & non-critically ill patients. However, more stringent targets may be selected in individual cases. 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 BSG's rising due to stress dose steroids and sepsis, and D5W given for hypernatremia. Will continue home Lantus and add weight-based Novolog. PLAN FOR INPATIENT GLYCEMIC CONTROL: * Basal insulin with LANTUS 6 units SQ hs * Correctional Insulin with NOVOLOG per scale ACHS or Q6hrs while NPO * Goal Range: Low 120 mg/dL - High 160 mg/dL * Correction Factor: 30 mg/dL/unit * Nutritional / Prandial insulin per carb ratio of 1 unit per 9 grams CHO consumed * Please note that the plan above was derived based on current level of insulin resistance and hospital stress. These recommendations are appropriate for inpatient admission only. Plan of care upon discharge will need to be reassessed to avoid potential outpatient hypo/hyperglycemia. Thank you.
[2016-04-14 17:15] LABS: BUN/CREATININE RATIO 13.6 (10-20); CALCIUM 8.1 mg/dl (8.5-10.1); CREATININE 1.1 mg/dl (0.60-1.20); POTASSIUM 3.4 mmol/L (3.5-5.1)
[2016-04-14 17:55] LABS: THYROID STIMULATING HORMONE < 0.005 uIu/ml (0.300-4.500)
[2016-04-14] MEDS ORDERED: POTASSIUM PHOS 3 MMOL/1 ML INFUSION IV STA (19:01)
[2016-04-14] MEDS ORDERED: POTASSIUM CITRATE 10 MEQ TAB PO ONE (19:30)
[2016-04-14] MEDS ORDERED: POTASSIUM PHOSPHATE INJ 21 MMOL in SODIUM CHLORIDE 0.9% 500ML 500 ML IV SCH (19:30)
[2016-04-14] MEDS: LATANOPROST 0.005% OP SOLN 2.5 ML BTL OP SCH (21:26)
[2016-04-14] MEDS: DESMOPRESSIN ACETATE 0.1 MG TAB PO SCH (21:26)
[2016-04-14] MEDS: INSULIN GLARGINE SOLOSTAR 100 UNITS/ML 3 ML PEN SC SCH (21:29)
[2016-04-15] VITALS (12 sets, daily range): BP systolic 120–168; BP diastolic 64–95; PULSE 69–96; TEMP 36.5–37; O2SAT 93–97
[2016-04-15] MEDS: DEXTROSE 5% 1000ML 1,000 ML IV SCH ×2 (04:15→16:36)
[2016-04-15 05:40] LABS: HEMATOCRIT 29.3 % (37-47); MEAN CELL VOLUME 90.7 fL (80-100); MEAN CORPUSCULAR HEMOGLOBIN 31.3 pg (25-34); MEAN CORPUSCULAR HGB CONC 34.5 g/dl (32-36); MEAN PLATELET VOLUME 11.2 fL (7.4-10.4); PLATELET COUNT 130 K/uL (130-400); RED BLOOD COUNT 3.23 M/uL (4.2-5.4); WHITE BLOOD COUNT 25.24 K/uL (4.8-10.8)
[2016-04-15] MEDS: IMIPENEM-CILASTATIN 250 MG in DEXTROSE 5% 100ML 100 ML IV SCH ×3 (06:03→18:02)
[2016-04-15 06:06] LABS: CALCIUM 7.6 mg/dl (8.5-10.1); MAGNESIUM 1.7 mg/dl (1.8-2.4); POTASSIUM 3.5 mmol/L (3.5-5.1)
[2016-04-15] MEDS: HYDROCORTISONE IV 100 MG in SYRINGE 0 ML IV SCH (08:06)
[2016-04-15] MEDS: DESMOPRESSIN ACETATE INJ 1 MCG in SODIUM CHLORIDE 0.9% 50ML 50 ML IV SCH (08:06)
[2016-04-15] MEDS: BOOST GLUCOSE CONTROL PO SCH ×3 (08:06→16:36)
[2016-04-15] MEDS: CALCITRIOL 0.25 MCG CAP PO SCH (08:07)
[2016-04-15] MEDS: POTASSIUM CHLORIDE 20 MEQ TABCR PO SCH (08:07)
[2016-04-15] MEDS: MAGNESIUM SULFATE 1GM / D5W 1 GM in PREMIXED IN D5W 100 ML IV SCH ×2 (08:08→09:21)
[2016-04-15] MEDS: NYSTATIN POWDER 15GM BTL EXT SCH ×2 (08:09→21:15)
[2016-04-15] MEDS: SODIUM CHLORIDE 0.65% NA SOLN 45 ML (OCEAN) NAE SCH (08:10)
[2016-04-15] MEDS: INSULIN ASPART 100 UNITS/ML 3 ML PEN SC SCH ×5 (08:13→21:12)
[2016-04-15] MEDS: HEPARIN SOD 5000 UNIT/0.5 ML CARP SQ SCH ×2 (08:14→21:15)
[2016-04-15] MEDS ORDERED: LEVOTHYROXINE SODIUM 20 MCG/1 ML IV SCH (09:00)
[2016-04-15] MEDS: PANTOprazole SOD 40 MG TAB PO SCH (10:00)
--- NOTE | 2016-04-15 12:17 | Progress Note ---
Subjective Date of Service: Apr 15, 2016. Subjective Pt evaluation today including: conversation w/ patient, conversation w/ family (daughter and ), physical exam, lab review, conversation w/ family consultant, review of inpatient medication list Pain: no pain PO Intake: tolerated some mashed potatoes Voiding: pizarro catheter in place patient more alert, her mental status is improved per she is tolerating some pills and minimal oral intake discussed that overall she looks like she is improving over past 24 hours had a BM yesterday RN is going to get her OOB to chair Problem List Medical Problems: (1) Acute kidney injury Status: Acute (2) VERO (acute kidney injury) Status: Acute (3) Altered mental status Status: Acute (4) Altered mental status Status: Acute (5) Altered mental status Status: Acute (6) Altered mental status Status: Acute (7) Altered mental status Status: Acute (8) Dehydration Status: Acute (9) Dysarthria Status: Acute (10) Hydronephrosis Status: Acute (11) Hydronephrosis Status: Acute (12) Kidney stone Status: Acute (13) Leukocytosis Status: Acute (14) Nausea & vomiting Status: Acute (15) Pleural effusion Status: Acute (16) Right ureteral calculus Status: Acute (17) Sepsis Status: Acute (18) Sepsis Status: Acute (19) Urinary tract infection Status: Acute Review of Systems Constitutional: + fatigue, + weakness Respiratory: + shortness of breath (when eating, no coughing or choking) Neurologic: + balance problems, + weakness All Other Systems: Reviewed and Negative Medications Current Inpatient Medications Medications (Trade) Dose Ordered Sig/Natalee Route Start Time Stop Time Status Last Admin Dose Admin Imipenem/ Cilastatin Sodium/ Dextrose (Primaxin Iv/D5 100ml) 110 ml @ 100 mls/hr Q6H IV 04/13/16 18:00 04/23/16 11:59 04/15/16 06:03 100 MLS/HR Imipenem/ Cilastatin Sodium (Consult) 1 ea UD PRN N/A 04/13/16 11:03 05/13/16 11:02 Acetaminophen (Tylenol Tab) 650 mg Q4H PRN PO 04/13/16 11:00 05/13/16 10:59 Calcitriol (Rocaltrol Cap) 0.5 mcg DAILY PO 04/14/16 09:00 05/14/16 08:59 04/15/16 08:07 0.5 MCG Desmopressin Acetate (Desmopressin Acetate) 0.2 mg HS PO 04/13/16 21:00 05/13/16 20:59 Future hold 04/14/16 21:26 0.2 MG Insulin Glargine (Lantus Solostar Pen) 6 unit HS SC 04/13/16 21:00 05/13/16 20:59 04/14/16 21:29 6 UNIT Latanoprost (Xalatan Oph Soln) 1 drops HS OP 04/13/16 21:00 05/13/16 20:59 04/14/16 21:26 1 DROPS Levothyroxine Sodium (Synthroid Tab) 112 mcg DAILYBB PO 04/14/16 06:00 05/14/16 06:59 Future Hold 04/14/16 08:30 112 MCG Nystatin (Mycostatin Powder) 1 appln BID EXT 04/13/16 21:00 05/13/16 20:59 04/15/16 08:09 1 APPLN Potassium Chloride (Klor-Con Tab) 20 meq DAILY PO 04/14/16 09:00 05/14/16 08:59 04/15/16 08:07 20 MEQ Sodium Chloride ([place] Nasal [place]) 2 sprays DAILY OSVALDO 04/14/16 09:00 05/14/16 08:59 04/15/16 08:10 2 SPRAYS Heparin Sodium (Porcine) (Heparin Sq 5000 Unit/0.5ml) 5,000 unit Q12 SQ 04/13/16 21:00 05/13/16 20:59 04/15/16 08:14 5,000 UNIT Morphine Sulfate 2 mg 2 mg Q4 PRN IV 04/13/16 12:45 04/27/16 12:44 Hydrocortisone Sodium Succinate/ Syringe (Solu-Cortef IV/ Syringe) 2 ml @ 4 mls/min Q8@0000,0800,1600 IV 04/13/16 17:00 05/13/16 16:59 04/15/16 08:06 4 MLS/MIN Miscellaneous Information (Consult Glycemic Management Pharmacy) 1 ea UD PRN N/A 04/14/16 05:45 05/14/16 05:44 Glucose (Glucose 40% Gel) 15-30 GRAMS 15 GRAMS... UD PRN PO 04/14/16 05:45 05/14/16 05:44 Glucose (Glucose Chew Tab) 4-8 Tablets 4 Tabl... UD PRN PO 04/14/16 05:45 05/14/16 05:44 Dextrose (Dextrose 50% 50ML Syringe) 25-50ML OF 50% DW IV FOR... UD PRN IV 04/14/16 05:45 05/14/16 05:44 Glucagon (Glucagon Inj) 1 mg UD PRN SQ 04/14/16 05:45 05/14/16 05:44 Insulin Aspart SLIDING SCALE ACHS SC 04/14/16 11:00 05/14/16 10:59 04/15/16 08:13 5 UNITS Dextrose 1,000 ml @ 100 mls/hr Q10H IV 04/14/16 09:00 05/14/16 08:59 04/15/16 04:15 100 MLS/HR Desmopressin Acetate/Sodium Chloride (Ddavp Inj/Nss 50ml) 50.25 ml @ 100 mls/hr DAILY IV 04/14/16 10:00 05/14/16 09:59 04/15/16 08:06 100 MLS/HR Enteral Nutritional Formula (Boost Glucose Control) 1 can TIDM PO 04/14/16 11:30 05/14/16 11:29 04/15/16 08:06 1 CAN Pantoprazole Sodium (Protonix Tab) 40 mg QAM PO 04/15/16 09:00 05/15/16 08:59 04/15/16 10:00 40 MG Objective Vital Signs Date Time Temp Pulse Resp B/P Pulse Ox O2 Delivery O2 Flow Rate FiO2 04/15/16 10:00 78 16 145/86 95 Room Air 04/15/16 08:00 36.9 81 16 165/87 97 Room Air 04/15/16 08:00 Room Air 04/15/16 06:00 36.5 71 13 140/72 94 Room Air 04/15/16 04:00 Room Air 04/15/16 04:00 36.5 75 12 120/95 95 Room Air 04/15/16 02:00 77 14 135/64 93 Room Air 04/15/16 00:00 36.7 83 14 146/89 94 Room Air 04/15/16 00:00 Room Air 04/14/16 22:00 99 21 133/83 96 Room Air 04/14/16 20:00 36.9 102 20 146/82 95 Room Air 04/14/16 19:55 94 Room Air 04/14/16 18:00 103 20 122/66 94 Room Air 04/14/16 16:10 95 Room Air 04/14/16 16:00 94 28 96 04/14/16 15:59 36.7 16 137/85 95 Room Air 04/14/16 15:00 93 15 93 04/14/16 14:59 124/69 04/14/16 14:00 104 22 95 04/14/16 11:59 36.7 107 19 119/75 95 Room Air 04/14/16 11:30 94 Room Air Physical Exam General Appearance: WD/WN, no apparent distress Neck: supple, no adenopathy, no JVD Respiratory/Chest: chest non-tender, lungs clear, normal breath sounds, no respiratory distress, no accessory muscle use Cardiovascular: regular rate, rhythm, no edema, no gallop, no JVD, no murmur Abdomen: normal bowel sounds, non tender, soft, no organomegaly Extremities: non-tender, normal inspection, no pedal edema, no calf tenderness , pelvis stable Neurologic/Psychiatric: repossession agent II-XII nml as tested, alert, normal mood/affect, oriented x 3, + motor weakness (generalized) Skin: normal color, warm/dry, no rash Laboratory Results Last 24 Hours Test 04/14/16 11:41 04/14/16 11:58 04/14/16 16:04 04/14/16 16:10 Bedside Glucose 220 mg/dl 178 mg/dl Sodium Level 152 mmol/L 151 mmol/L Potassium Level 3.4 mmol/L 3.4 mmol/L Chloride Level 122 mmol/L 121 mmol/L Carbon Dioxide Level 20 mmol/L 19 mmol/L Anion Gap 10.0 mmol/L 11.0 mmol/L Blood Urea Nitrogen 15 mg/dl 15 mg/dl Creatinine 1.20 mg/dl 1.10 mg/dl Est Creatinine Clear Calc Drug Dose 34.9 ml/min 38.1 ml/min Estimated GFR () 49.4 54.9 Estimated GFR (Non- 42.7 47.4 BUN/Creatinine Ratio 12.7 13.6 Random Glucose 241 mg/dl 187 mg/dl Calcium Level 7.8 mg/dl 8.1 mg/dl Thyroid Stimulating Hormone (TSH) < 0.005 uIu/ml Free Thyroxine 1.39 ng/dl Test 04/14/16 21:25 04/15/16 05:05 Bedside Glucose 185 mg/dl White Blood Count 25.24 K/uL Red Blood Count 3.23 M/uL Hemoglobin 10.1 g/dL Hematocrit 29.3 % Mean Corpuscular Volume 90.7 fL Mean Corpuscular Hemoglobin 31.3 pg Mean Corpuscular Hemoglobin Concent 34.5 g/dl RDW Standard Deviation 56.6 fL RDW Coefficient of Variation 17.0 % Platelet Count 130 K/uL Mean Platelet Volume 11.2 fL Sodium Level 148 mmol/L Potassium Level 3.5 mmol/L Chloride Level 117 mmol/L Carbon Dioxide Level 22 mmol/L Anion Gap 9.0 mmol/L Blood Urea Nitrogen 19 mg/dl Creatinine 1.00 mg/dl Est Creatinine Clear Calc Drug Dose 41.9 ml/min Estimated GFR () 61.6 Estimated GFR (Non- 53.2 BUN/Creatinine Ratio 19.0 Random Glucose 218 mg/dl Calcium Level 7.6 mg/dl Magnesium Level 1.7 mg/dl Assessment and Plan 81 y.o.F PMHx of MDR Pseudomonas, Hx of ureteral stent was admitted on 2015 to the hospital with altered mentals status. was transferred to ICU in first 24 hours b/c sepsis with signs of tachycardia, hypotensive, worsening leukocytosis - Severe sepsis secondary to UTI, had hypotension but responded to fluids WBC going down today continue antibiotics, IV fluids, stress dose steroids cultures: no growth in urine or blood - Hypernatremia and hyperchloremia: D5 W and free water, f/u lytes, sodium trending down appropriately - hx Hypopituitarism: DDAVP IV while unable to take PO - hypothyroidism: cont levothyroxine IV - VERO prior to admission: from prerenal from sepsis, resolved with Cr down to 1.0, good UO via pizarro - Metabolic encephalopathy: suspect 2/2 to UTI, markedly improving - Type 2 DM, cont Novolog sliding scale - hx of Hypertension: hold home bp meds GI and DVt px d/w pt, and daughter, keep in ICU for now but would be okay with transfer if ICU requests Continued [facility] stay due to: multiple IV medications needed Discharge planning: uncertain
--- NOTE | 2016-04-15 15:06 | Pharmacy Progress Note ---
Glycemic: Assessment & Plan Date of Service Apr 15, 2016. Assessment & Plan Item Value Date Time Bedside Glucose 294 mg/dl H 04/15/16 1112 Random Glucose 218 mg/dl H 04/15/16 0505 Bedside Glucose 185 mg/dl H 04/14/16 2125 Random Glucose 187 mg/dl H 04/14/16 1610 Random Glucose 241 mg/dl H 04/14/16 1158 Bedside Glucose 231 mg/dl H 04/14/16 0525 PLAN: Continues hydrocortisone 100mg IV every 8 hours, LVP D5 @ 100cc/hr. Will tighten Novolog CF/CR and monitor closely. * Basal insulin: Continue Lantus 6 units every HS (home dose) * Correctional Insulin: Novolog Correction per scale ACHS Goal Range: Low 120 mg/dL - High 160 mg/dL "Tightened" Correction Factor: 25 mg/dL/unit * Prandial insulin: "Tightened" carb ratio 1 unit per 8 grams CHO consumed Pharmacy will continue to monitor patient daily and write orders per [facility] inpatient glycemic control protocol. Thanks. * Please note that the plan above was derived based on current level of insulin resistance and hospital stress. These recommendations are appropriate for inpatient admission only. Plan of care upon discharge will need to be reassessed to avoid potential outpatient hypo/hyperglycemia.
--- NOTE | 2016-04-15 16:07 | Critical Care Progress Note ---
Critical Care Progress Note Date of Service Apr 15, 2016. Attending Dr. Fields Subjective "No complaints" patient alert and oriented Objective MIX TECHNICIAN/Neuro: Pupils: Equal round reactive, Focal Signs: Moves all 4 purposefully Sedation/pain control: Morphine as needed for pain EEG/CT/MRI: I reviewed the chest x-ray head CT and abdominal pelvis CT dated 04/13/2016 independently and reviewed the radiology report Restraints: NA Neurologic prophylaxis: Not applicable Respiratory: Scattered rhonchi bilaterally Chest x-ray: Reviewed HOB up 30 degrees: Yes Chlorhexidine: Yes Cardiovascular: S1-S2 regular rhythm tachycardia CV drips: Holding amlodipine Rhythm: Sinus tachycardia EKG: I reviewed the EKG dated 04/13/2016@10/26/2027. ECHO: Echo dated 12/19/2015 reviewed findings include mildly dilated LV left ventricular ejection fraction 65% normal segmental wall motion Fluids/Renal: No obvious flank tenderness Talbert: Present GI/Nutrition: Soft nontender nondistended Feeding: Diet as tolerated, Prophylaxis: Takes PPI at home Hematology: DVT prophylaxis: Heparin twice a day Skin/MSK: Small petechiae near the right upper chest Infectious Disease/Immunology: Tmax: 37 CVL (date): 04/13/2016 Antimicrobials: Primaxin based on previous culture results day 1. Will treat as complicated urinary tract infection, still need source control Cultures: Blood: No growth to date Urine: Less than 1000 colonies per mL Assessment & Plan Neuro: Mentation at baseline Resp: On room air CV: Remains off pressors, tachycardia improved with volume resuscitation Fluids/Renal: Hypernatremia and hyperchloremia secondary to aggressive saline resuscitation. Improving with DDAVP and D5W at 100 MLS per hour 8KI: Improving ID: Leukemoid reaction secondary to sepsis improving, still concerned about source control given kidney stone, preliminary plan by urology to undergo instrumentation Saturday, we will continue current antibiotics until source control achieved GI/Nutrition: Bedside swallowing evaluation Heme: Dilutional anemia Endocrine: Hypopituitarism DDAVP orally presumed Stop stress dose steroids resume glucocorticoids Resume oral levothyroxine She remains hemodynamically stable, able to be downgraded from ICU status Data Medications: Current Inpatient Medications Medications (Trade) Dose Ordered Sig/Natalee Route Start Time Stop Time Status Last Admin Dose Admin Imipenem/ Cilastatin Sodium/ Dextrose (Primaxin Iv/D5 100ml) 110 ml @ 100 mls/hr Q6H IV 04/13/16 18:00 04/23/16 11:59 04/15/16 12:43 100 MLS/HR Imipenem/ Cilastatin Sodium (Consult) 1 ea UD PRN N/A 04/13/16 11:03 05/13/16 11:02 Acetaminophen (Tylenol Tab) 650 mg Q4H PRN PO 04/13/16 11:00 05/13/16 10:59 Calcitriol (Rocaltrol Cap) 0.5 mcg DAILY PO 04/14/16 09:00 05/14/16 08:59 04/15/16 08:07 0.5 MCG Desmopressin Acetate (Desmopressin Acetate) 0.2 mg HS PO 04/13/16 21:00 05/13/16 20:59 Future hold 04/14/16 21:26 0.2 MG Insulin Glargine (Lantus Solostar Pen) 6 unit HS SC 04/13/16 21:00 05/13/16 20:59 04/14/16 21:29 6 UNIT Latanoprost (Xalatan Oph Soln) 1 drops HS OP 04/13/16 21:00 05/13/16 20:59 04/14/16 21:26 1 DROPS Levothyroxine Sodium (Synthroid Tab) 112 mcg DAILYBB PO 04/14/16 06:00 05/14/16 06:59 Future Hold 04/14/16 08:30 112 MCG Nystatin (Mycostatin Powder) 1 appln BID EXT 04/13/16 21:00 05/13/16 20:59 04/15/16 08:09 1 APPLN Potassium Chloride (Klor-Con Tab) 20 meq DAILY PO 04/14/16 09:00 05/14/16 08:59 04/15/16 08:07 20 MEQ Sodium Chloride ([place] Nasal [place]) 2 sprays DAILY OSVALDO 04/14/16 09:00 05/14/16 08:59 04/15/16 08:10 2 SPRAYS Heparin Sodium (Porcine) (Heparin Sq 5000 Unit/0.5ml) 5,000 unit Q12 SQ 04/13/16 21:00 05/13/16 20:59 04/15/16 08:14 5,000 UNIT Morphine Sulfate 2 mg 2 mg Q4 PRN IV 04/13/16 12:45 04/27/16 12:44 Hydrocortisone Sodium Succinate/ Syringe (Solu-Cortef IV/ Syringe) 2 ml @ 4 mls/min Q8@0000,0800,1600 IV 04/13/16 17:00 05/13/16 16:59 04/15/16 08:06 4 MLS/MIN Miscellaneous Information (Consult Glycemic Management Pharmacy) 1 ea UD PRN N/A 04/14/16 05:45 05/14/16 05:44 Glucose (Glucose 40% Gel) 15-30 GRAMS 15 GRAMS... UD PRN PO 04/14/16 05:45 05/14/16 05:44 Glucose (Glucose Chew Tab) 4-8 Tablets 4 Tabl... UD PRN PO 04/14/16 05:45 05/14/16 05:44 Dextrose (Dextrose 50% 50ML Syringe) 25-50ML OF 50% DW IV FOR... UD PRN IV 04/14/16 05:45 05/14/16 05:44 Glucagon (Glucagon Inj) 1 mg UD PRN SQ 04/14/16 05:45 05/14/16 05:44 Insulin Aspart SLIDING SCALE ACHS SC 04/14/16 11:00 05/14/16 10:59 04/15/16 12:46 11 UNITS Dextrose 1,000 ml @ 100 mls/hr Q10H IV 04/14/16 09:00 05/14/16 08:59 04/15/16 04:15 100 MLS/HR Desmopressin Acetate/Sodium Chloride (Ddavp Inj/Nss 50ml) 50.25 ml @ 100 mls/hr DAILY IV 04/14/16 10:00 05/14/16 09:59 04/15/16 08:06 100 MLS/HR Enteral Nutritional Formula (Boost Glucose Control) 1 can TIDM PO 04/14/16 11:30 05/14/16 11:29 04/15/16 12:44 1 CAN Pantoprazole Sodium (Protonix Tab) 40 mg QAM PO 04/15/16 09:00 05/15/16 08:59 04/15/16 10:00 40 MG I & O: 24-Hour Column 04/15/16 08:00 Intake Total 4132 ml Output Total 1825 ml Balance 2307 ml Vital Signs: Date Time Temp Pulse Resp B/P Pulse Ox O2 Delivery O2 Flow Rate FiO2 04/15/16 14:00 79 16 144/74 94 Room Air 04/15/16 12:00 Room Air 04/15/16 12:00 37.0 96 16 147/87 96 Room Air 04/15/16 10:00 78 16 145/86 95 Room Air 04/15/16 08:00 36.9 81 16 165/87 97 Room Air 04/15/16 08:00 Room Air 04/15/16 06:00 36.5 71 13 140/72 94 Room Air 04/15/16 04:00 Room Air 04/15/16 04:00 36.5 75 12 120/95 95 Room Air 04/15/16 02:00 77 14 135/64 93 Room Air 04/15/16 00:00 36.7 83 14 146/89 94 Room Air 04/15/16 00:00 Room Air 04/14/16 22:00 99 21 133/83 96 Room Air 04/14/16 20:00 36.9 102 20 146/82 95 Room Air 04/14/16 19:55 94 Room Air 04/14/16 18:00 103 20 122/66 94 Room Air 04/14/16 16:10 95 Room Air Laboratory Results: Last 24 Hours Test 04/14/16 16:04 04/14/16 16:10 04/14/16 21:25 04/15/16 05:05 Bedside Glucose 178 mg/dl 185 mg/dl Sodium Level 151 mmol/L 148 mmol/L Potassium Level 3.4 mmol/L 3.5 mmol/L Chloride Level 121 mmol/L 117 mmol/L Carbon Dioxide Level 19 mmol/L 22 mmol/L Anion Gap 11.0 mmol/L 9.0 mmol/L Blood Urea Nitrogen 15 mg/dl 19 mg/dl Creatinine 1.10 mg/dl 1.00 mg/dl Est Creatinine Clear Calc Drug Dose 38.1 ml/min 41.9 ml/min Estimated GFR () 54.9 61.6 Estimated GFR (Non- 47.4 53.2 BUN/Creatinine Ratio 13.6 19.0 Random Glucose 187 mg/dl 218 mg/dl Calcium Level 8.1 mg/dl 7.6 mg/dl Thyroid Stimulating Hormone (TSH) < 0.005 uIu/ml Free Thyroxine 1.39 ng/dl White Blood Count 25.24 K/uL Red Blood Count 3.23 M/uL Hemoglobin 10.1 g/dL Hematocrit 29.3 % Mean Corpuscular Volume 90.7 fL Mean Corpuscular Hemoglobin 31.3 pg Mean Corpuscular Hemoglobin Concent 34.5 g/dl RDW Standard Deviation 56.6 fL RDW Coefficient of Variation 17.0 % Platelet Count 130 K/uL Mean Platelet Volume 11.2 fL Magnesium Level 1.7 mg/dl Test 04/15/16 11:12 Bedside Glucose 294 mg/dl
[2016-04-15] MEDS: LATANOPROST 0.005% OP SOLN 2.5 ML BTL OP SCH (21:09)
[2016-04-15] MEDS: DESMOPRESSIN ACETATE 0.1 MG TAB PO SCH (21:09)
[2016-04-15] MEDS: INSULIN GLARGINE SOLOSTAR 100 UNITS/ML 3 ML PEN SC SCH (21:14)
[2016-04-16 00:12] VITALS: BP 168/95; PULSE 69; TEMP 36.6; O2SAT 95
[2016-04-16] MEDS: IMIPENEM-CILASTATIN 250 MG in DEXTROSE 5% 100ML 100 ML IV SCH ×3 (00:18→12:11)
[2016-04-16] MEDS: DEXTROSE 5% 1000ML 1,000 ML IV SCH ×3 (04:11→21:18)
[2016-04-16 04:44] VITALS: BP 163/80; PULSE 64; TEMP 36.4; O2SAT 95
[2016-04-16 05:30] LABS: HEMATOCRIT 28.6 % (37-47); MEAN CELL VOLUME 89.7 fL (80-100); MEAN CORPUSCULAR HEMOGLOBIN 30.7 pg (25-34); MEAN CORPUSCULAR HGB CONC 34.3 g/dl (32-36); MEAN PLATELET VOLUME 10.7 fL (7.4-10.4); PLATELET COUNT 123 K/uL (130-400); RED BLOOD COUNT 3.19 M/uL (4.2-5.4); WHITE BLOOD COUNT 17.26 K/uL (4.8-10.8)
[2016-04-16 05:59] LABS: BUN/CREATININE RATIO 24.4 (10-20); CREATININE 0.82 mg/dl (0.60-1.20); POTASSIUM 3.2 mmol/L (3.5-5.1)
[2016-04-16] MEDS: LEVOTHYROXINE 112 MCG TAB PO SCH (06:06)
[2016-04-16 06:29] LABS: CALCIUM 7.5 mg/dl (8.5-10.1)
[2016-04-16] MEDS: BOOST GLUCOSE CONTROL PO SCH ×3 (07:30→18:48)
[2016-04-16 07:47] VITALS: BP 135/84; PULSE 63; TEMP 36.4; O2SAT 95
[2016-04-16] MEDS: NYSTATIN POWDER 15GM BTL EXT SCH ×2 (08:18→20:44)
[2016-04-16] MEDS: SODIUM CHLORIDE 0.65% NA SOLN 45 ML (OCEAN) NAE SCH (08:19)
[2016-04-16] MEDS: POTASSIUM CHLORIDE 20 MEQ TABCR PO SCH (08:20)
[2016-04-16] MEDS: PANTOprazole SOD 40 MG TAB PO SCH (08:20)
[2016-04-16] MEDS: HYDROCORTISONE 10 MG TAB PO SCH ×2 (08:20→13:47)
[2016-04-16] MEDS: CALCITRIOL 0.25 MCG CAP PO SCH (08:21)
[2016-04-16] MEDS: INSULIN ASPART 100 UNITS/ML 3 ML PEN SC SCH ×4 (08:27→21:02)
[2016-04-16] MEDS: HEPARIN SOD 5000 UNIT/0.5 ML CARP SQ SCH ×2 (08:28→21:05)
--- NOTE | 2016-04-16 09:38 | Progress Note ---
Subjective Date of Service: Apr 16, 2016. Subjective Pt evaluation today including: conversation w/ patient, conversation w/ family , physical exam, lab review, review of inpatient medication list Pain: no pain PO Intake: adequate Voiding: pizarro catheter in place (will d/c today) patient doing much better today, OOB in chair + BM, will d/c pizarro today therapy consulted to get patient moving updated family at the bedside, they agree that she is improving Problem List Medical Problems: (1) Acute kidney injury Status: Acute (2) VERO (acute kidney injury) Status: Acute (3) Altered mental status Status: Acute (4) Altered mental status Status: Acute (5) Altered mental status Status: Acute (6) Altered mental status Status: Acute (7) Altered mental status Status: Acute (8) Dehydration Status: Acute (9) Dysarthria Status: Acute (10) Hydronephrosis Status: Acute (11) Hydronephrosis Status: Acute (12) Kidney stone Status: Acute (13) Leukocytosis Status: Acute (14) Nausea & vomiting Status: Acute (15) Pleural effusion Status: Acute (16) Right ureteral calculus Status: Acute (17) Sepsis Status: Acute (18) Sepsis Status: Acute (19) Urinary tract infection Status: Acute Review of Systems Constitutional: + fatigue, + weakness All Other Systems: Reviewed and Negative Medications Current Inpatient Medications Medications (Trade) Dose Ordered Sig/Natalee Route Start Time Stop Time Status Last Admin Dose Admin Imipenem/ Cilastatin Sodium/ Dextrose (Primaxin Iv/D5 100ml) 110 ml @ 100 mls/hr Q6H IV 04/13/16 18:00 04/23/16 11:59 04/16/16 05:23 100 MLS/HR Imipenem/ Cilastatin Sodium (Consult) 1 ea UD PRN N/A 04/13/16 11:03 05/13/16 11:02 Acetaminophen (Tylenol Tab) 650 mg Q4H PRN PO 04/13/16 11:00 05/13/16 10:59 Calcitriol (Rocaltrol Cap) 0.5 mcg DAILY PO 04/14/16 09:00 05/14/16 08:59 04/16/16 08:21 0.5 MCG Desmopressin Acetate (Desmopressin Acetate) 0.2 mg HS PO 04/13/16 21:00 05/13/16 20:59 Future hold 04/15/16 21:09 0.2 MG Insulin Glargine (Lantus Solostar Pen) 6 unit HS SC 04/13/16 21:00 05/13/16 20:59 04/15/16 21:14 6 UNIT Latanoprost (Xalatan Oph Soln) 1 drops HS OP 04/13/16 21:00 05/13/16 20:59 04/15/16 21:09 1 DROPS Levothyroxine Sodium (Synthroid Tab) 112 mcg DAILYBB PO 04/14/16 06:00 05/14/16 06:59 Future hold 04/16/16 06:06 112 MCG Nystatin (Mycostatin Powder) 1 appln BID EXT 04/13/16 21:00 05/13/16 20:59 04/16/16 08:18 1 APPLN Potassium Chloride (Klor-Con Tab) 20 meq DAILY PO 04/14/16 09:00 05/14/16 08:59 04/16/16 08:20 20 MEQ Sodium Chloride ([place] Nasal [place]) 2 sprays DAILY OSVALDO 04/14/16 09:00 05/14/16 08:59 04/16/16 08:19 2 SPRAYS Heparin Sodium (Porcine) (Heparin Sq 5000 Unit/0.5ml) 5,000 unit Q12 SQ 04/13/16 21:00 05/13/16 20:59 04/16/16 08:28 5,000 UNIT Morphine Sulfate (MoRPHine SULFATE INJ) 2 mg Q4 PRN IV 04/13/16 12:45 04/27/16 12:44 Miscellaneous Information (Consult Glycemic Management Pharmacy) 1 ea UD PRN N/A 04/14/16 05:45 05/14/16 05:44 Glucose (Glucose 40% Gel) 15-30 GRAMS 15 GRAMS... UD PRN PO 04/14/16 05:45 05/14/16 05:44 Glucose (Glucose Chew Tab) 4-8 Tablets 4 Tabl... UD PRN PO 04/14/16 05:45 05/14/16 05:44 Dextrose (Dextrose 50% 50ML Syringe) 25-50ML OF 50% DW IV FOR... UD PRN IV 04/14/16 05:45 05/14/16 05:44 Glucagon (Glucagon Inj) 1 mg UD PRN SQ 04/14/16 05:45 05/14/16 05:44 Insulin Aspart SLIDING SCALE ACHS SC 04/14/16 11:00 05/14/16 10:59 04/16/16 08:27 7 UNITS Dextrose (D5W 1000ml) 1,000 ml @ 100 mls/hr Q10H IV 04/14/16 09:00 05/14/16 08:59 04/16/16 04:11 100 MLS/HR Enteral Nutritional Formula (Boost Glucose Control) 1 can TIDM PO 04/14/16 11:30 05/14/16 11:29 04/16/16 07:30 1 CAN Pantoprazole Sodium (Protonix Tab) 40 mg QAM PO 04/15/16 09:00 05/15/16 08:59 04/16/16 08:20 40 MG Hydrocortisone (Cortef Tab) 15 mg QAM PO 04/16/16 09:00 05/16/16 08:59 04/16/16 08:20 15 MG Hydrocortisone (Cortef Tab) 10 mg DAILY@1400 PO 04/16/16 14:00 05/16/16 13:59 Objective Vital Signs Date Time Temp Pulse Resp B/P Pulse Ox O2 Delivery O2 Flow Rate FiO2 04/16/16 07:47 36.4 63 20 135/84 95 Room Air 04/16/16 04:44 36.4 64 15 163/80 95 Room Air 04/16/16 04:00 Room Air 04/16/16 00:12 36.6 69 23 168/95 95 Room Air 04/15/16 23:59 95 Room Air 04/15/16 20:08 37.0 76 21 153/78 95 Room Air 04/15/16 20:00 Room Air 04/15/16 16:00 Room Air 04/15/16 16:00 36.8 81 18 159/76 96 Room Air 04/15/16 14:00 79 16 144/74 94 Room Air 04/15/16 12:00 Room Air 04/15/16 12:00 37.0 96 16 147/87 96 Room Air 04/15/16 10:00 78 16 145/86 95 Room Air Physical Exam General Appearance: WD/WN, no apparent distress Neck: supple, no adenopathy, no JVD, trachea midline Respiratory/Chest: chest non-tender, lungs clear, normal breath sounds, no respiratory distress, no accessory muscle use Cardiovascular: regular rate, rhythm, no edema, no gallop, no JVD, no murmur Abdomen: normal bowel sounds, non tender, soft, no organomegaly Extremities: normal range of motion, non-tender, normal inspection, no pedal edema, no calf tenderness Neurologic/Psychiatric: 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 collections 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 II-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 as tested, no motor/sensory deficits, alert, normal mood/affect, oriented x 3 Skin: normal color, warm/dry, no rash Laboratory Results Last 24 Hours Test 04/15/16 11:12 04/15/16 15:58 04/15/16 20:18 04/16/16 05:20 Bedside Glucose 294 mg/dl 244 mg/dl 168 mg/dl White Blood Count 17.26 K/uL Red Blood Count 3.19 M/uL Hemoglobin 9.8 g/dL Hematocrit 28.6 % Mean Corpuscular Volume 89.7 fL Mean Corpuscular Hemoglobin 30.7 pg Mean Corpuscular Hemoglobin Concent 34.3 g/dl RDW Standard Deviation 53.3 fL RDW Coefficient of Variation 16.2 % Platelet Count 123 K/uL Mean Platelet Volume 10.7 fL Sodium Level 140 mmol/L Potassium Level 3.2 mmol/L Chloride Level 107 mmol/L Carbon Dioxide Level 24 mmol/L Anion Gap 9.0 mmol/L Blood Urea Nitrogen 20 mg/dl Creatinine 0.82 mg/dl Est Creatinine Clear Calc Drug Dose 51.1 ml/min Estimated GFR () 78.3 Estimated GFR (Non- 67.6 BUN/Creatinine Ratio 24.4 Random Glucose 137 mg/dl Calcium Level 7.5 mg/dl Test 04/16/16 06:59 Bedside Glucose 126 mg/dl Assessment and Plan 81 y.o.F PMHx of MDR Pseudomonas, Hx of ureteral stent was admitted on 2015 to the hospital with altered mentals status. was transferred to ICU in first 24 hours b/c sepsis with signs of tachycardia, hypotensive, worsening leukocytosis - Severe sepsis secondary to UTI, had hypotension but responded to fluids WBC continues to go down today, 17 from 25 continue antibiotics, stop fluids and stress dose steroids cultures: no growth in urine or blood await abx recommendations from ID - Hypernatremia and hyperchloremia: resolved, no further free water needed, Desmopressin 0.2 PO qHS - hx Hypopituitarism: desmopressin and hydrocortisone - hypothyroidism: Levothyroxine - VERO prior to admission: from prerenal from sepsis, resolved with Cr down to 1.0, good UO via pizarro, will d/c pizarro today - Metabolic encephalopathy: suspect 2/2 to UTI, resolved - Type 2 DM, cont Novolog sliding scale - hx of Hypertension: BP trending up, will resume Norvasc 10mg qAM today GI and DVt px d/w pt, and daughter, keep on PCU today, likely transfer tomorrow consult PT/OT today Continued [facility] stay due to: multiple IV medications needed Discharge planning: uncertain
--- NOTE | 2016-04-16 09:49 | Progress Note ---
Progress Note Patient is afebrile vital signs are stable She said she is feeling better She is more alert today Urine output is good White count is coming down slowly Urine and blood cultures were all negative although I suspect she did have sepsis At this point I would continue her on IV antibiotics I will discuss with Dr. Bojorquez when he is planning on doing ureteroscopy to remove the stone although I think it would probably be this I would keep her in the hospital on IV antibiotics until the stone is dealt with
[2016-04-16 11:34] VITALS: BP 126/56; PULSE 103; TEMP 36.8; O2SAT 96
--- NOTE | 2016-04-16 14:08 | Pharmacy Progress Note ---
Glycemic Control: Progress Nt Date of Service Apr 16, 2016. Scope Glycemic Pharmacist consulted by Dr Prasad on 04/14/16 for glycemic control and to write orders per [facility] inpatient glycemic control protocol. Objective Accuchecks BSG (last 24hrs): Test 04/15/16 15:58 04/15/16 20:18 04/16/16 05:20 04/16/16 06:59 Bedside Glucose 244 mg/dl (70-90) 168 mg/dl (70-90) 126 mg/dl (70-90) Random Glucose 137 mg/dl (70-99) Test 04/16/16 10:53 Bedside Glucose 182 mg/dl (70-90) Laboratory Data (last 24hrs) Test 04/16/16 05:20 Anion Gap 9.0 mmol/L BUN/Creatinine Ratio 24.4 Blood Urea Nitrogen 20 mg/dl Creatinine 0.82 mg/dl Potassium Level 3.2 mmol/L Sodium Level 140 mmol/L White Blood Count 17.26 K/uL HbA1c: Test 04/14/16 05:22 Hemoglobin A1c 6.6 % (4.5-5.6) H Recent Pertinent Medications Outpatient Anti-diabetic Regimen: * Lantus 6 units Q HS * A1c = 6.6 % 04/14/16 The patient is currently receiving: * Basal insulin: Lantus 6 units SQ Q HS * Correctional Insulin: Novolog Correction per scale ACHS Goal Range: Low 120 mg/dL - High 160 mg/dL Correction Factor: 25 mg/dL/unit * Prandial insulin: Per carb ratio of 1 unit per 8 grams CHO consumed * Oral Agents: None currently Risk Factors for Insulin Resistance: * Steroids: Hydrocortisone PO 15mg Q AM + 10mg early afternoon * Infection: receiving Primaxin * IVF: D5W @ 100cc/hr (for hypernatremia) * Diet: ordered Regular diet; PO intake variable Assessment & Plan ASSESSMENT: 04/16/16: * Glycemic control has improved over the last 24 hours * Fasting BSG at goal this AM with 6 units Lantus on board (home dosage) * Some post-prandial BSGs elevated yesterday, however pre-lunch only mildly elevated. Prandial insulin dose was just increased yesterday so I would not like to make further changes at this time as the post-prandial BSGs are improving. * Will need to monitor for dropping BSGs if D5W infusion discontinued (Na+ now down to normal range). Patient's A1c 6.6% on Lantus monotherapy. Will likely need to reduce prandial insulin doses as well should this occur. PLAN FOR INPATIENT GLYCEMIC CONTROL: * Continuing Lantus 6 units SQ Q HS * Continuing correction factor of 25 mg/dl/unit * Continuing carb ratio of 1 unit per 8 grams CHO consumed * Continuing goal range of Low 120 mg/dL - High 160 mg/dL * Consider adjusting insulin doses downward if D5W infusion discontinued in the near future * Please note that the plan above was derived based on current level of insulin resistance and hospital stress. These recommendations are appropriate for inpatient admission only. Plan of care upon discharge will need to be reassessed to avoid potential outpatient hypo/hyperglycemia. Thank you.
[2016-04-16] MEDS ORDERED: IMIPENEM/CILASTATIN IV 250 MG in 5% D5W 100ML IV ONE (14:30)
[2016-04-16 15:07] VITALS: BP 138/81; PULSE 67; TEMP 36.4; O2SAT 96
--- NOTE | 2016-04-16 15:07 | Infectious Disease Progress Nt ---
Progress Note Date of Service Apr 16, 2016. Subjective Pt evaluation today including: conversation w/ patient, conversation w/ family , physical exam, chart review, lab review, review of studies, review of inpatient medication list WBC count 17.26 today. Creatinine is 0.82. Patient states that she is feeling slightly better, but continues to be weak. She is currently on IV Primaxin. Reviewed other notes and note that Dr. Cespedes will be discussing ureteroscopy to remove the patient's renal stone with Dr. Bojorquez. Hoping to remove stone this week and continue abx in the meantime. Blood cultures have shown no growth to date. Urine culture was finalized with no growth. No new imaging. All Other Systems: Reviewed and Negative Medications Current Inpatient Medications Medications (Trade) Dose Ordered Sig/Natalee Route Start Time Stop Time Status Last Admin Dose Admin Imipenem/ Cilastatin Sodium (Consult) 1 ea UD PRN N/A 04/13/16 11:03 05/13/16 11:02 Acetaminophen (Tylenol Tab) 650 mg Q4H PRN PO 04/13/16 11:00 05/13/16 10:59 Calcitriol (Rocaltrol Cap) 0.5 mcg DAILY PO 04/14/16 09:00 05/14/16 08:59 04/16/16 08:21 0.5 MCG Desmopressin Acetate (Desmopressin Acetate) 0.2 mg HS PO 04/13/16 21:00 05/13/16 20:59 Future hold 04/15/16 21:09 0.2 MG Insulin Glargine (Lantus Solostar Pen) 6 unit HS SC 04/13/16 21:00 05/13/16 20:59 04/15/16 21:14 6 UNIT Latanoprost (Xalatan Oph Soln) 1 drops HS OP 04/13/16 21:00 05/13/16 20:59 04/15/16 21:09 1 DROPS Levothyroxine Sodium (Synthroid Tab) 112 mcg DAILYBB PO 04/14/16 06:00 05/14/16 06:59 Future hold 04/16/16 06:06 112 MCG Nystatin (Mycostatin Powder) 1 appln BID EXT 04/13/16 21:00 05/13/16 20:59 04/16/16 08:18 1 APPLN Potassium Chloride (Klor-Con Tab) 20 meq DAILY PO 04/14/16 09:00 05/14/16 08:59 04/16/16 08:20 20 MEQ Sodium Chloride ([place] Nasal [place]) 2 sprays DAILY OSVALDO 04/14/16 09:00 05/14/16 08:59 04/16/16 08:19 2 SPRAYS Heparin Sodium (Porcine) (Heparin Sq 5000 Unit/0.5ml) 5,000 unit Q12 SQ 04/13/16 21:00 05/13/16 20:59 04/16/16 08:28 5,000 UNIT Morphine Sulfate (MoRPHine SULFATE INJ) 2 mg Q4 PRN IV 04/13/16 12:45 04/27/16 12:44 Miscellaneous Information (Consult Glycemic Management Pharmacy) 1 ea UD PRN N/A 04/14/16 05:45 05/14/16 05:44 Glucose (Glucose 40% Gel) 15-30 GRAMS 15 GRAMS... UD PRN PO 04/14/16 05:45 05/14/16 05:44 Glucose (Glucose Chew Tab) 4-8 Tablets 4 Tabl... UD PRN PO 04/14/16 05:45 05/14/16 05:44 Dextrose (Dextrose 50% 50ML Syringe) 25-50ML OF 50% DW IV FOR... UD PRN IV 04/14/16 05:45 05/14/16 05:44 Glucagon (Glucagon Inj) 1 mg UD PRN SQ 04/14/16 05:45 05/14/16 05:44 Insulin Aspart SLIDING SCALE ACHS SC 04/14/16 11:00 05/14/16 10:59 04/16/16 12:08 3 UNITS Dextrose (D5W 1000ml) 1,000 ml @ 100 mls/hr Q10H IV 04/14/16 09:00 05/14/16 08:59 04/16/16 13:46 100 MLS/HR Enteral Nutritional Formula (Boost Glucose Control) 1 can TIDM PO 04/14/16 11:30 05/14/16 11:29 04/16/16 07:30 1 CAN Pantoprazole Sodium (Protonix Tab) 40 mg QAM PO 04/15/16 09:00 05/15/16 08:59 04/16/16 08:20 40 MG Hydrocortisone (Cortef Tab) 15 mg QAM PO 04/16/16 09:00 05/16/16 08:59 04/16/16 08:20 15 MG Hydrocortisone 10 mg 10 mg DAILY@1400 PO 04/16/16 14:00 05/16/16 13:59 04/16/16 13:47 10 MG Imipenem/ Cilastatin Sodium 500 mg/Dextrose 110 ml @ 110 mls/hr Q8@0600,1400,2200 IV 04/16/16 22:00 04/22/16 23:59 Imipenem/ Cilastatin Sodium/ Dextrose (Primaxin Iv/D5 100ml) 105 ml @ 105 mls/hr TODAY@1430 ONCE IV 04/16/16 14:30 04/16/16 15:29 04/16/16 14:40 105 MLS/HR Objective Vital Signs Date Time Temp Pulse Resp B/P Pulse Ox O2 Delivery O2 Flow Rate FiO2 04/16/16 12:00 Room Air 04/16/16 11:34 36.8 103 16 126/56 96 Room Air 04/16/16 08:00 Room Air 04/16/16 07:47 36.4 63 20 135/84 95 Room Air 04/16/16 04:44 36.4 64 15 163/80 95 Room Air 04/16/16 04:00 Room Air 04/16/16 00:12 36.6 69 23 168/95 95 Room Air 04/15/16 23:59 95 Room Air 04/15/16 20:08 37.0 76 21 153/78 95 Room Air 04/15/16 20:00 Room Air 04/15/16 16:00 Room Air 04/15/16 16:00 36.8 81 18 159/76 96 Room Air Physical Exam General Appearance: no apparent distress, + obese Eyes: normal inspection, sclerae normal ENT: hearing grossly normal Neck: supple, trachea midline Respiratory/Chest: chest non-tender, no respiratory distress, no accessory muscle use Cardiovascular: + tachycardia, + irregularly irregular Abdomen: normal bowel sounds, non tender Neurologic/Psychiatric: alert, normal mood/affect Skin: normal color, warm/dry, no rash Laboratory Results Item Value Date Time MRSA DNA Surveillance Screen - Final Complete 04/13/16 2235 Nasal Specimen Negative for MRSA by DNA Probe Blood Culture - Preliminary Resulted 04/13/16 1855 Blood NO GROWTH TO DATE. Urine Culture - Final Complete 04/13/16 1830 Urine,Catheterized NO GROWTH - LESS THAN 1,000 COLONIES/ML Blood Culture - Preliminary Resulted 04/13/16 1800 Blood NO GROWTH TO DATE. Last 24 Hours Test 04/15/16 15:58 04/15/16 20:18 04/16/16 05:20 04/16/16 06:59 Bedside Glucose 244 mg/dl 168 mg/dl 126 mg/dl White Blood Count 17.26 K/uL Red Blood Count 3.19 M/uL Hemoglobin 9.8 g/dL Hematocrit 28.6 % Mean Corpuscular Volume 89.7 fL Mean Corpuscular Hemoglobin 30.7 pg Mean Corpuscular Hemoglobin Concent 34.3 g/dl RDW Standard Deviation 53.3 fL RDW Coefficient of Variation 16.2 % Platelet Count 123 K/uL Mean Platelet Volume 10.7 fL Sodium Level 140 mmol/L Potassium Level 3.2 mmol/L Chloride Level 107 mmol/L Carbon Dioxide Level 24 mmol/L Anion Gap 9.0 mmol/L Blood Urea Nitrogen 20 mg/dl Creatinine 0.82 mg/dl Est Creatinine Clear Calc Drug Dose 51.1 ml/min Estimated GFR () 78.3 Estimated GFR (Non- 67.6 BUN/Creatinine Ratio 24.4 Random Glucose 137 mg/dl Calcium Level 7.5 mg/dl Test 04/16/16 10:53 Bedside Glucose 182 mg/dl Assessment and Plan Patient with leukocytosis, altered mental status, and recent UTI with concern for infected ureteral stent. The patient is anticipating stent replacement and renal stone removal potentially this week but will await urology opinion regarding this. She is improving slowly on IV Primaxin, and therefore would continue this medication until decision is made regarding stone/stent. Would prefer that the stent be removed and replaced if necessary with concern for stent infection. We will continue to follow. case reviewed and agree with above assessment
[2016-04-16 19:01] VITALS: BP 154/76; PULSE 65; TEMP 36.3; O2SAT 94
[2016-04-16] MEDS: LATANOPROST 0.005% OP SOLN 2.5 ML BTL OP SCH (20:44)
[2016-04-16] MEDS: DESMOPRESSIN ACETATE 0.1 MG TAB PO SCH (20:45)
[2016-04-16] MEDS: INSULIN GLARGINE SOLOSTAR 100 UNITS/ML 3 ML PEN SC SCH (21:02)
[2016-04-16] MEDS: IMIPENEM/CILASTATIN IV 500 MG in D5W 100ML IV SCH (21:20)
[2016-04-17 00:47] VITALS: BP 152/77; PULSE 60; TEMP 36.4; O2SAT 97
[2016-04-17 03:51] VITALS: BP 161/83; PULSE 63; TEMP 36.5; O2SAT 96
[2016-04-17] MEDS: IMIPENEM/CILASTATIN IV 500 MG in D5W 100ML IV SCH ×3 (06:16→21:13)
[2016-04-17] MEDS: LEVOTHYROXINE 112 MCG TAB PO SCH (06:16)
[2016-04-17] MEDS: BOOST GLUCOSE CONTROL PO SCH ×3 (07:30→17:13)
[2016-04-17 08:00] VITALS: BP 172/87; PULSE 64; TEMP 36.4; O2SAT 97
[2016-04-17] MEDS: DEXTROSE 5% 1000ML 1,000 ML IV SCH ×2 (08:23→17:14)
[2016-04-17] MEDS: NYSTATIN POWDER 15GM BTL EXT SCH ×2 (08:24→20:42)
[2016-04-17] MEDS: HYDROCORTISONE 10 MG TAB PO SCH ×2 (08:24→14:00)
[2016-04-17] MEDS: SODIUM CHLORIDE 0.65% NA SOLN 45 ML (OCEAN) NAE SCH (08:24)
[2016-04-17] MEDS: PANTOprazole SOD 40 MG TAB PO SCH (08:24)
[2016-04-17] MEDS: POTASSIUM CHLORIDE 20 MEQ TABCR PO SCH (08:25)
[2016-04-17] MEDS: CALCITRIOL 0.25 MCG CAP PO SCH (08:25)
[2016-04-17] MEDS: INSULIN ASPART 100 UNITS/ML 3 ML PEN SC SCH ×4 (08:29→20:48)
[2016-04-17] MEDS: HEPARIN SOD 5000 UNIT/0.5 ML CARP SQ SCH ×2 (08:29→20:49)
--- NOTE | 2016-04-17 09:54 | Progress Note ---
Subjective Date of Service: Apr 17, 2016. Subjective pt tolerating abx, awaiting ? stone removal, new stent. All cultures negative so far. previous culture with pseudomonas, did not tolerated cefepime well. wbc improving, 17 today. afebrile. Problem List Medical Problems: (1) Acute kidney injury Status: Acute (2) VERO (acute kidney injury) Status: Acute (3) Altered mental status Status: Acute (4) Altered mental status Status: Acute (5) Altered mental status Status: Acute (6) Altered mental status Status: Acute (7) Altered mental status Status: Acute (8) Dehydration Status: Acute (9) Dysarthria Status: Acute (10) Hydronephrosis Status: Acute (11) Hydronephrosis Status: Acute (12) Kidney stone Status: Acute (13) Leukocytosis Status: Acute (14) Nausea & vomiting Status: Acute (15) Pleural effusion Status: Acute (16) Right ureteral calculus Status: Acute (17) Sepsis Status: Acute (18) Sepsis Status: Acute (19) Urinary tract infection Status: Acute Objective Vital Signs Date Time Temp Pulse Resp B/P Pulse Ox O2 Delivery O2 Flow Rate FiO2 04/17/16 08:00 36.4 64 20 172/87 97 Room Air 04/17/16 04:00 Room Air 04/17/16 03:51 36.5 63 21 161/83 96 Room Air 04/17/16 00:47 36.4 60 18 152/77 97 Room Air 04/17/16 00:00 Room Air 04/16/16 20:00 Room Air 04/16/16 19:01 36.3 65 20 154/76 94 Room Air 04/16/16 17:43 Room Air 04/16/16 15:07 36.4 67 18 138/81 96 Room Air 04/16/16 12:00 Room Air 04/16/16 11:34 36.8 103 16 126/56 96 Room Air Laboratory Results Item Value Date Time Blood Culture - Preliminary Resulted 04/13/16 1855 Blood NO GROWTH TO DATE. Urine Culture - Final Complete 04/13/16 1830 Urine,Catheterized NO GROWTH - LESS THAN 1,000 COLONIES/ML Blood Culture - Preliminary Resulted 04/13/16 1800 Blood NO GROWTH TO DATE. Last 24 Hours Test 04/16/16 10:53 04/16/16 16:43 04/16/16 20:00 04/17/16 07:18 Bedside Glucose 182 mg/dl 155 mg/dl 218 mg/dl 107 mg/dl Assessment and Plan (1) UTI (urinary tract infection) Assessment & Plan: would continue imipenem for now, likely will require procedure for cure, will keep pt on abx pending this plan. wbc continues to improve. Continued [facility] stay due to: multiple IV medications needed Discharge planning: uncertain
[2016-04-17 12:00] VITALS: BP 138/78; PULSE 75; TEMP 36.6; O2SAT 95
--- NOTE | 2016-04-17 13:04 | Progress Note ---
Subjective Date of Service: Apr 17, 2016. Subjective Pt evaluation today including: conversation w/ family, chart review, lab review Pt resting comfortably this morning. Not disturbed. Discussion with family this morning. Pt remains somewhat confused. White count improved to 17.26. Repeat cultures are negative. Problem List Medical Problems: (1) Acute kidney injury Status: Acute (2) VERO (acute kidney injury) Status: Acute (3) Altered mental status Status: Acute (4) Altered mental status Status: Acute (5) Altered mental status Status: Acute (6) Altered mental status Status: Acute (7) Altered mental status Status: Acute (8) Dehydration Status: Acute (9) Dysarthria Status: Acute (10) Hydronephrosis Status: Acute (11) Hydronephrosis Status: Acute (12) Kidney stone Status: Acute (13) Leukocytosis Status: Acute (14) Nausea & vomiting Status: Acute (15) Pleural effusion Status: Acute (16) Right ureteral calculus Status: Acute (17) Sepsis Status: Acute (18) Sepsis Status: Acute (19) Urinary tract infection Status: Acute Review of Systems Female : + hematuria Objective Vital Signs Date Time Temp Pulse Resp B/P Pulse Ox O2 Delivery O2 Flow Rate FiO2 04/17/16 12:00 Room Air 04/17/16 12:00 36.6 75 18 138/78 95 Room Air 04/17/16 08:00 36.4 64 20 172/87 97 Room Air 04/17/16 08:00 Room Air 04/17/16 04:00 Room Air 04/17/16 03:51 36.5 63 21 161/83 96 Room Air 04/17/16 00:47 36.4 60 18 152/77 97 Room Air 04/17/16 00:00 Room Air 04/16/16 20:00 Room Air 04/16/16 19:01 36.3 65 20 154/76 94 Room Air 04/16/16 17:43 Room Air 04/16/16 15:07 36.4 67 18 138/81 96 Room Air Physical Exam General Appearance: no apparent distress Eyes: normal inspection ENT: hearing grossly normal Neck: no JVD Respiratory/Chest: no respiratory distress, no accessory muscle use Cardiovascular: no JVD Extremities: normal inspection Neurologic/Psychiatric: + pertinent finding (Pt sleeping. ) Skin: normal color Laboratory Results Last 24 Hours Test 04/16/16 16:43 12/26/16 20:00 04/17/16 07:18 04/17/16 11:41 Bedside Glucose 155 mg/dl 218 mg/dl 107 mg/dl 159 mg/dl Assessment and Plan A/P: Right ureteral stone AFVSS. Continue Imipenem for now. Will plan for right ureteroscopy while inpatient this 04-[address] Bojorquez. Continued [facility] stay due to: multiple IV medications needed Discharge planning: uncertain
--- NOTE | 2016-04-17 13:21 | Progress Note ---
Subjective Date of Service: Apr 17, 2016. Subjective Pt evaluation today including: conversation w/ patient (seen adn exmained rn homecare was at bed site and seen again was at bedsite as well, awake and laert , confused, disoriented to time and place, holds appropriate conversation , denied any CP or SOB, fever or chill, SBC still high), conversation w/ family Problem List Medical Problems: (1) Acute kidney injury Status: Acute (2) VERO (acute kidney injury) Status: Acute (3) Altered mental status Status: Acute (4) Altered mental status Status: Acute (5) Altered mental status Status: Acute (6) Altered mental status Status: Acute (7) Altered mental status Status: Acute (8) Dehydration Status: Acute (9) Dysarthria Status: Acute (10) Hydronephrosis Status: Acute (11) Hydronephrosis Status: Acute (12) Kidney stone Status: Acute (13) Leukocytosis Status: Acute (14) Nausea & vomiting Status: Acute (15) Pleural effusion Status: Acute (16) Right ureteral calculus Status: Acute (17) Sepsis Status: Acute (18) Sepsis Status: Acute (19) Urinary tract infection Status: Acute Review of Systems Constitutional: No chills, No fatigue, No fever, No problem reported, No see HPI, No sweats, No weakness, No weight loss Eyes: No diplopia, No discharge, No eye pain, No problem reported, No redness, No see HPI, No worsening of vision ENT: No dental problems, No hearing loss, No nasal symptoms, No problem reported, No see HPI, No sore throat, No tinnitus, No trouble swallowing, No unusual epistaxis Respiratory: No cough, No dyspnea at rest, No dyspnea on exertion, No hemoptysis, No problem reported, No see HPI, No shortness of breath, No sputum, No wheezing Cardiac: No PND, No chest pain, No claudication, No edema, No orthopnea, No palpitations, No problem reported, No see HPI Abdomen: No GI bleeding, No constipation, No diarrhea, No nausea, No pain, No problem reported, No see HPI, No vomiting Musculoskeletal: No calf pain, No joint pain, No muscle pain, No problem reported, No see HPI, No swelling Neurologic: + memory loss, + weakness Heme: + see HPI Endo: + fatigue Medications Current Inpatient Medications Medications (Trade) Dose Ordered Sig/Natalee Route Start Time Stop Time Status Last Admin Dose Admin Imipenem/ Cilastatin Sodium (Consult) 1 ea UD PRN N/A 04/13/16 11:03 05/13/16 11:02 Acetaminophen (Tylenol Tab) 650 mg Q4H PRN PO 04/13/16 11:00 05/13/16 10:59 Calcitriol (Rocaltrol Cap) 0.5 mcg DAILY PO 04/14/16 09:00 05/14/16 08:59 04/17/16 08:25 0.5 MCG Desmopressin Acetate (Desmopressin Acetate) 0.2 mg HS PO 04/13/16 21:00 05/13/16 20:59 Future hold 04/16/16 20:45 0.2 MG Insulin Glargine (Lantus Solostar Pen) 6 unit HS SC 04/13/16 21:00 05/13/16 20:59 04/16/16 21:02 6 UNIT Latanoprost (Xalatan Oph Soln) 1 drops HS OP 04/13/16 21:00 05/13/16 20:59 04/16/16 20:44 1 DROPS Levothyroxine Sodium (Synthroid Tab) 112 mcg DAILYBB PO 04/14/16 06:00 05/14/16 06:59 Future hold 04/17/16 06:16 112 MCG Nystatin (Mycostatin Powder) 1 appln BID EXT 04/13/16 21:00 05/13/16 20:59 04/17/16 08:24 1 APPLN Potassium Chloride (Klor-Con Tab) 20 meq DAILY PO 04/14/16 09:00 05/14/16 08:59 04/17/16 08:25 20 MEQ Sodium Chloride ([place] Nasal [place]) 2 sprays DAILY OSVALDO 04/14/16 09:00 05/14/16 08:59 04/17/16 08:24 2 SPRAYS Heparin Sodium (Porcine) (Heparin Sq 5000 Unit/0.5ml) 5,000 unit Q12 SQ 04/13/16 21:00 05/13/16 20:59 04/17/16 08:29 5,000 UNIT Morphine Sulfate (MoRPHine SULFATE INJ) 2 mg Q4 PRN IV 04/13/16 12:45 04/27/16 12:44 Miscellaneous Information (Consult Glycemic Management Pharmacy) 1 ea UD PRN N/A 04/14/16 05:45 05/14/16 05:44 Glucose (Glucose 40% Gel) 15-30 GRAMS 15 GRAMS... UD PRN PO 04/14/16 05:45 05/14/16 05:44 Glucose (Glucose Chew Tab) 4-8 Tablets 4 Tabl... UD PRN PO 04/14/16 05:45 05/14/16 05:44 Dextrose (Dextrose 50% 50ML Syringe) 25-50ML OF 50% DW IV FOR... UD PRN IV 04/14/16 05:45 05/14/16 05:44 Glucagon (Glucagon Inj) 1 mg UD PRN SQ 04/14/16 05:45 05/14/16 05:44 Insulin Aspart SLIDING SCALE ACHS SC 04/14/16 11:00 05/14/16 10:59 04/17/16 12:31 6 UNITS Dextrose (D5W 1000ml) 1,000 ml @ 100 mls/hr Q10H IV 04/14/16 09:00 05/14/16 08:59 04/17/16 08:23 100 MLS/HR Enteral Nutritional Formula (Boost Glucose Control) 1 can TIDM PO 04/14/16 11:30 05/14/16 11:29 04/17/16 07:30 1 CAN Pantoprazole Sodium (Protonix Tab) 40 mg QAM PO 04/15/16 09:00 05/15/16 08:59 04/17/16 08:24 40 MG Hydrocortisone (Cortef Tab) 15 mg QAM PO 04/16/16 09:00 05/16/16 08:59 04/17/16 08:24 15 MG Hydrocortisone 10 mg 10 mg DAILY@1400 PO 04/16/16 14:00 05/16/16 13:59 04/16/16 13:47 10 MG Imipenem/ Cilastatin Sodium/ Dextrose (Primaxin Iv/D5 100ml) 110 ml @ 110 mls/hr Q8@0600,1400,2200 IV 04/16/16 22:00 04/22/16 23:59 04/17/16 06:16 110 MLS/HR Objective Vital Signs Date Time Temp Pulse Resp B/P Pulse Ox O2 Delivery O2 Flow Rate FiO2 12/27/16 08:00 36.4 64 20 172/87 97 Room Air 04/17/16 04:00 Room Air 04/17/16 03:51 36.5 63 21 161/83 96 Room Air 04/17/16 00:47 36.4 60 18 152/77 97 Room Air 04/17/16 00:00 Room Air 04/16/16 20:00 Room Air 04/16/16 19:01 36.3 65 20 154/76 94 Room Air 04/16/16 17:43 Room Air 04/16/16 15:07 36.4 67 18 138/81 96 Room Air 04/16/16 12:00 Room Air 04/16/16 11:34 36.8 103 16 126/56 96 Room Air Physical Exam General Appearance: WD/WN, no apparent distress, + obese Eyes: normal inspection, PERRL, sclerae normal ENT: normal ENT inspection Neck: supple, thyroid normal, no JVD, no carotid bruits Respiratory/Chest: chest non-tender, lungs clear, normal breath sounds, no respiratory distress Cardiovascular: regular rate, rhythm, no edema, no gallop, no JVD, no murmur Abdomen: normal bowel sounds, non tender, soft, no organomegaly Extremities: normal range of motion, non-tender, normal inspection Neurologic/Psychiatric: alert, + disoriented Laboratory Results Last 24 Hours Test 04/16/16 10:53 04/16/16 16:43 04/16/16 20:00 04/17/16 07:18 Bedside Glucose 182 mg/dl 155 mg/dl 218 mg/dl 107 mg/dl Assessment and Plan 81 y.o.F PMHx of MDR Pseudomonas, Hx of ureteral stent was admitted on 2015 to the hospital with altered mentals status. was transferred to ICU in first 24 hours b/c sepsis with signs of tachycardia, hypotensive, worsening leukocytosis - Severe sepsis secondary to UTI, had hypotension but responded to fluids, culture neg WBC continues to go down today, 17 from 25 continue antibiotics, stop fluids and stress dose steroids cultures: no growth in urine or blood cont current Abx as per ID plan to OR on by urology for - Left-sided nephrolithiasis and Right-sided nephroureteral stent with 6 mm distal right ureteral calculus adjacent to the stent, plan to OR by urology on Thursday -Severe leukocytosis sec to above improving - Hypernatremia and hyperchloremia: resolved, no further free water needed, Desmopressin 0.2 PO qHS - hx Hypopituitarism: desmopressin and hydrocortisone - hypothyroidism: Levothyroxine - VERO prior to admission: from prerenal from sepsis, resolved - Acute Metabolic encephalopathy: suspect 2/2 to UTI, resolved - Type 2 DM, cont Novolog sliding scale - hx of Hypertension: BP trending up, will resume Norvasc 10mg qAM today GI and DVt px, Heparin d/w pt, and rn homecare in detail, keep on PCU today, Continued [facility] stay due to: multiple IV medications needed, other (needs procedure) Discharge planning: uncertain
[2016-04-17 15:02] VITALS: BP 136/86; PULSE 72; TEMP 36.5; O2SAT 92
[2016-04-17 19:50] VITALS: BP 110/81; PULSE 83; TEMP 36.4; O2SAT 96
[2016-04-17] MEDS: DESMOPRESSIN ACETATE 0.1 MG TAB PO SCH (20:43)
[2016-04-17] MEDS: LATANOPROST 0.005% OP SOLN 2.5 ML BTL OP SCH (20:43)
[2016-04-17] MEDS: INSULIN GLARGINE SOLOSTAR 100 UNITS/ML 3 ML PEN SC SCH (20:49)
[2016-04-18] VITALS (11 sets, daily range): BP systolic 109–159; BP diastolic 65–88; PULSE 70–76; TEMP 36.4–36.7; O2SAT 91–98
[2016-04-18] MEDS: LEVOTHYROXINE 112 MCG TAB PO SCH (06:23)
[2016-04-18] MEDS: IMIPENEM/CILASTATIN IV 500 MG in D5W 100ML IV SCH ×3 (06:23→22:51)
[2016-04-18] MEDS: DEXTROSE 5% 1000ML 1,000 ML IV SCH (06:25)
[2016-04-18] MEDS: INSULIN ASPART 100 UNITS/ML 3 ML PEN SC SCH ×4 (07:53→20:46)
[2016-04-18] MEDS: BOOST GLUCOSE CONTROL PO SCH ×2 (07:54→11:43)
[2016-04-18] MEDS: SODIUM CHLORIDE 0.65% NA SOLN 45 ML (OCEAN) NAE SCH (07:55)
[2016-04-18] MEDS: NYSTATIN POWDER 15GM BTL EXT SCH ×2 (07:55→20:56)
[2016-04-18] MEDS: HYDROCORTISONE 10 MG TAB PO SCH ×2 (07:55→14:00)
[2016-04-18] MEDS: PANTOprazole SOD 40 MG TAB PO SCH (07:56)
[2016-04-18] MEDS: POTASSIUM CHLORIDE 20 MEQ TABCR PO SCH (07:56)
[2016-04-18] MEDS: CALCITRIOL 0.25 MCG CAP PO SCH (07:56)
[2016-04-18] MEDS: HEPARIN SOD 5000 UNIT/0.5 ML CARP SQ SCH ×2 (07:58→20:56)
[2016-04-18 08:11] LABS: HEMATOCRIT 32.7 % (37-47); MEAN CELL VOLUME 86.7 fL (80-100); MEAN CORPUSCULAR HEMOGLOBIN 30.5 pg (25-34); MEAN CORPUSCULAR HGB CONC 35.2 g/dl (32-36); MEAN PLATELET VOLUME 11.5 fL (7.4-10.4); PLATELET COUNT 167 K/uL (130-400); RED BLOOD COUNT 3.77 M/uL (4.2-5.4); WHITE BLOOD COUNT 11.43 K/uL (4.8-10.8)
[2016-04-18 08:25] LABS: CREATININE 0.77 mg/dl (0.60-1.20)
[2016-04-18 08:48] LABS: COMPLETE YES; EOSINOPHIL % 1.8 %; LYMPH ABS # 1.94 K/uL (1.2-3.4); NEUTROPHILS % 79.4 %
--- NOTE | 2016-04-18 10:37 | Progress Note ---
Subjective Date of Service: Apr 18, 2016. Subjective pt for procedure tomorrow with urology. afebrile overnight. wbc continues to improve, 11.4 today, tolerating abx. 04/13 blood and urine cultures negative. Problem List Medical Problems: (1) Acute kidney injury Status: Acute (2) VERO (acute kidney injury) Status: Acute (3) Altered mental status Status: Acute (4) Altered mental status Status: Acute (5) Altered mental status Status: Acute (6) Altered mental status Status: Acute (7) Altered mental status Status: Acute (8) Dehydration Status: Acute (9) Dysarthria Status: Acute (10) Hydronephrosis Status: Acute (11) Hydronephrosis Status: Acute (12) Kidney stone Status: Acute (13) Leukocytosis Status: Acute (14) Nausea & vomiting Status: Acute (15) Pleural effusion Status: Acute (16) Right ureteral calculus Status: Acute (17) Sepsis Status: Acute (18) Sepsis Status: Acute (19) Urinary tract infection Status: Acute Objective Vital Signs Date Time Temp Pulse Resp B/P Pulse Ox O2 Delivery O2 Flow Rate FiO2 04/18/16 08:35 36.5 71 18 159/80 96 Room Air 04/18/16 08:00 96 Room Air 04/18/16 04:26 36.6 76 21 158/88 96 Room Air 04/18/16 04:00 Room Air 04/18/16 00:17 36.7 70 22 148/81 98 Room Air 04/18/16 00:01 Room Air 04/17/16 20:05 Room Air 04/17/16 19:50 36.4 83 18 110/81 96 Room Air 04/17/16 16:05 Room Air 04/17/16 15:02 36.5 72 16 136/86 92 Room Air 04/17/16 12:00 Room Air 04/17/16 12:00 36.6 75 18 138/78 95 Room Air Laboratory Results Item Value Date Time Blood Culture - Preliminary Resulted 04/13/16 1800 Blood NO GROWTH TO DATE. Urine Culture - Final Complete 04/13/16 1830 Urine,Catheterized NO GROWTH - LESS THAN 1,000 COLONIES/ML Blood Culture - Preliminary Resulted 04/13/16 1855 Blood NO GROWTH TO DATE. Last 24 Hours Test 04/17/16 11:41 04/17/16 15:44 04/17/16 20:27 04/18/16 06:53 Bedside Glucose 159 mg/dl 144 mg/dl 240 mg/dl 128 mg/dl Test 04/18/16 07:30 White Blood Count 11.43 K/uL Red Blood Count 3.77 M/uL Hemoglobin 11.5 g/dL Hematocrit 32.7 % Mean Corpuscular Volume 86.7 fL Mean Corpuscular Hemoglobin 30.5 pg Mean Corpuscular Hemoglobin Concent 35.2 g/dl Platelet Count 167 K/uL Mean Platelet Volume 11.5 fL RDW Standard Deviation 48.4 fL RDW Coefficient of Variation 15.1 % Neutrophils % (Manual) 79.4 % Lymphocytes % (Manual) 17.0 % Monocytes % (Manual) 1.8 % Eosinophils % (Manual) 1.8 % Neutrophils # (Manual) 9.08 K/uL Total Absolute Neutrophils 9.08 K/uL Lymphocytes # (Manual) 1.94 K/uL Total Absolute Lymphocytes 1.94 K/uL Monocytes # (Manual) 0.21 K/uL Eosinophils # (Manual) 0.21 K/uL Red Blood Cell Morphology Unremarkable Creatinine 0.77 mg/dl Est Creatinine Clear Calc Drug Dose 55.7 ml/min Estimated GFR () 84.5 Estimated GFR (Non- 72.9 Assessment and Plan (1) UTI (urinary tract infection) Assessment & Plan: continue imipenem, tolerating well. had difficulty with cefepime last admission. urology procedure scheduled for tomorrow, await findings. Continued [facility] stay due to: multiple IV medications needed, other (needs procedure) Discharge planning: uncertain
--- NOTE | 2016-04-18 11:31 | Progress Note ---
Subjective Date of Service: Apr 18, 2016. Subjective Pt evaluation today including: conversation w/ patient, conversation w/ family , lab review Pain: none PO Intake: well seen and examined , and caregiver at bedside, ate and had good sleep last night, no CP or SOB, no fever or chill, no new complain Problem List Medical Problems: (1) Acute kidney injury Status: Acute (2) VERO (acute kidney injury) Status: Acute (3) Altered mental status Status: Acute (4) Altered mental status Status: Acute (5) Altered mental status Status: Acute (6) Altered mental status Status: Acute (7) Altered mental status Status: Acute (8) Dehydration Status: Acute (9) Dysarthria Status: Acute (10) Hydronephrosis Status: Acute (11) Hydronephrosis Status: Acute (12) Kidney stone Status: Acute (13) Leukocytosis Status: Acute (14) Nausea & vomiting Status: Acute (15) Pleural effusion Status: Acute (16) Right ureteral calculus Status: Acute (17) Sepsis Status: Acute (18) Sepsis Status: Acute (19) Urinary tract infection Status: Acute Review of Systems Constitutional: No chills, No fatigue, No fever, No problem reported, No see HPI, No sweats, No weakness, No weight loss Eyes: No diplopia, No discharge, No eye pain, No problem reported, No redness, No see HPI, No worsening of vision ENT: + hearing loss Respiratory: No cough, No dyspnea at rest, No dyspnea on exertion, No hemoptysis, No problem reported, No see HPI, No shortness of breath, No sputum, No wheezing Cardiac: No PND, No chest pain, No claudication, No edema, No orthopnea, No palpitations, No problem reported, No see HPI Abdomen: No GI bleeding, No constipation, No diarrhea, No nausea, No pain, No problem reported, No see HPI, No vomiting Musculoskeletal: No calf pain, No joint pain, No muscle pain, No problem reported, No see HPI, No swelling Female : No abnormal vaginal bleeding, No dysuria, No hematuria, No incontinence, No problem reported, No see HPI, No urinary frequency, No vaginal discharge Neurologic: + memory loss Medications Current Inpatient Medications Medications (Trade) Dose Ordered Sig/Natalee Route Start Time Stop Time Status Last Admin Dose Admin Imipenem/ Cilastatin Sodium (Consult) 1 ea UD PRN N/A 04/13/16 11:03 05/13/16 11:02 Acetaminophen (Tylenol Tab) 650 mg Q4H PRN PO 04/13/16 11:00 05/13/16 10:59 Calcitriol (Rocaltrol Cap) 0.5 mcg DAILY PO 04/14/16 09:00 05/14/16 08:59 04/18/16 07:56 0.5 MCG Desmopressin Acetate (Desmopressin Acetate) 0.2 mg HS PO 04/13/16 21:00 05/13/16 20:59 Future hold 04/17/16 20:43 0.2 MG Insulin Glargine (Lantus Solostar Pen) 6 unit HS SC 04/13/16 21:00 05/13/16 20:59 04/17/16 20:49 6 UNIT Latanoprost (Xalatan Oph Soln) 1 drops HS OP 04/13/16 21:00 05/13/16 20:59 04/17/16 20:43 1 DROPS Levothyroxine Sodium (Synthroid Tab) 112 mcg DAILYBB PO 04/14/16 06:00 05/14/16 06:59 Future hold 04/18/16 06:23 112 MCG Nystatin (Mycostatin Powder) 1 appln BID EXT 04/13/16 21:00 05/13/16 20:59 04/18/16 07:55 1 APPLN Potassium Chloride (Klor-Con Tab) 20 meq DAILY PO 04/14/16 09:00 05/14/16 08:59 04/18/16 07:56 20 MEQ Sodium Chloride (Jack Nasal [place]) 2 sprays DAILY OSVALDO 04/14/16 09:00 05/14/16 08:59 04/18/16 07:55 2 SPRAYS Heparin Sodium (Porcine) (Heparin Sq 5000 Unit/0.5ml) 5,000 unit Q12 SQ 04/13/16 21:00 05/13/16 20:59 04/18/16 07:58 5,000 UNIT Morphine Sulfate (MoRPHine SULFATE INJ) 2 mg Q4 PRN IV 04/13/16 12:45 04/27/16 12:44 Miscellaneous Information (Consult Glycemic Management Pharmacy) 1 wendy UD PRN N/A 04/14/16 05:45 05/14/16 05:44 Glucose (Glucose 40% Gel) 15-30 GRAMS 15 GRAMS... UD PRN PO 04/14/16 05:45 05/14/16 05:44 Glucose (Glucose Chew Tab) 4-8 Tablets 4 Tabl... UD PRN PO 04/14/16 05:45 05/14/16 05:44 Dextrose (Dextrose 50% 50ML Syringe) 25-50ML OF 50% DW IV FOR... UD PRN IV 04/14/16 05:45 05/14/16 05:44 Glucagon (Glucagon Inj) 1 mg UD PRN SQ 04/14/16 05:45 05/14/16 05:44 Insulin Aspart SLIDING SCALE ACHS SC 04/14/16 11:00 05/14/16 10:59 04/18/16 07:53 3 UNITS Dextrose (D5W 1000ml) 1,000 ml @ 100 mls/hr Q10H IV 04/14/16 09:00 05/14/16 08:59 04/18/16 06:25 100 MLS/HR Enteral Nutritional Formula (Boost Glucose Control) 1 can TIDM PO 04/14/16 11:30 05/14/16 11:29 04/18/16 07:54 1 CAN Pantoprazole Sodium (Protonix Tab) 40 mg QAM PO 04/15/16 09:00 05/15/16 08:59 04/18/16 07:56 40 MG Hydrocortisone (Cortef Tab) 15 mg QAM PO 04/16/16 09:00 05/16/16 08:59 04/18/16 07:55 15 MG Hydrocortisone 10 mg 10 mg DAILY@1400 PO 04/16/16 14:00 05/16/16 13:59 04/17/16 14:00 10 MG Imipenem/ Cilastatin Sodium/ Dextrose (Primaxin Iv/D5 100ml) 110 ml @ 110 mls/hr Q8@0600,1400,2200 IV 04/16/16 22:00 04/22/16 23:59 04/18/16 06:23 110 MLS/HR Objective Vital Signs Date Time Temp Pulse Resp B/P Pulse Ox O2 Delivery O2 Flow Rate FiO2 04/18/16 04:26 36.6 76 21 158/88 96 Room Air 04/18/16 04:00 Room Air 04/18/16 00:17 36.7 70 22 148/81 98 Room Air 04/18/16 00:01 Room Air 04/17/16 20:05 Room Air 04/17/16 19:50 36.4 83 18 110/81 96 Room Air 04/17/16 16:05 Room Air 04/17/16 15:02 36.5 72 16 136/86 92 Room Air 04/17/16 12:00 Room Air 04/17/16 12:00 36.6 75 18 138/78 95 Room Air Physical Exam General Appearance: WD/WN Eyes: normal inspection ENT: normal ENT inspection Neck: supple, no adenopathy, no JVD Respiratory/Chest: chest non-tender, lungs clear, normal breath sounds, no respiratory distress Cardiovascular: regular rate, rhythm, no edema, no gallop, no JVD, no murmur Abdomen: normal bowel sounds, non tender, soft, no organomegaly Extremities: normal range of motion, non-tender, normal inspection, no pedal edema Neurologic/Psychiatric: alert, normal mood/affect, + disoriented (place and time) Skin: normal color Laboratory Results Last 24 Hours Test 04/17/16 11:41 04/17/16 15:44 04/17/16 20:27 04/18/16 06:53 Bedside Glucose 159 mg/dl 144 mg/dl 240 mg/dl 128 mg/dl Test 04/18/16 07:30 White Blood Count 11.43 K/uL Red Blood Count 3.77 M/uL Hemoglobin 11.5 g/dL Hematocrit 32.7 % Mean Corpuscular Volume 86.7 fL Mean Corpuscular Hemoglobin 30.5 pg Mean Corpuscular Hemoglobin Concent 35.2 g/dl Platelet Count 167 K/uL Mean Platelet Volume 11.5 fL RDW Standard Deviation 48.4 fL RDW Coefficient of Variation 15.1 % Assessment and Plan 81 y.o.F PMHx of MDR Pseudomonas, Hx of ureteral stent was admitted on 2015 to the hospital with altered mentals status. was transferred to ICU in first 24 hours b/c sepsis with signs of tachycardia, hypotensive, worsening leukocytosis - Severe sepsis secondary to UTI, had hypotension but responded to fluids, culture neg WBC continues to go down today, 11 from 17 continue antibiotics, stop fluids and stress dose steroids cultures: no growth in urine or blood cont current Abx as per ID plan to OR on by urology - Left-sided nephrolithiasis and Right-sided nephroureteral stent with 6 mm distal right ureteral calculus adjacent to the stent, plan to OR by urology on -Severe leukocytosis sec to above, improving - Hypernatremia and hyperchloremia: resolved, no further free water needed, Desmopressin 0.2 PO qHS - hx Hypopituitarism: desmopressin and hydrocortisone - hypothyroidism: Levothyroxine - VERO prior to admission: from prerenal from sepsis, resolved - Acute Metabolic encephalopathy: suspect 2/2 to UTI, resolved - Type 2 DM, cont Novolog sliding scale - hx of Hypertension: BP trending up, will resume Norvasc 10mg qAM today GI and DVt px, Heparin plan for OR on cont rest of MX d/w pt, and director career services in detail, transfer to [facility] surg Continued [facility] stay due to: multiple IV medications needed, other (needs procedure) Discharge planning: uncertain
--- NOTE | 2016-04-18 12:55 | Anesthesiology Progress Note ---
Anesthesia Progress Note Date of Service Apr 18, 2016. Progress Notes Patient is an 81 year old female who is slated for laser litho with Dr. og on 04/19/16. Allergies to amoxicillin, cipro, sulfa, remergon, oxycodone. PSH includes craniotomy x2 (at [facility]) for meningioma removal (2013, 2014), oopherectomy b/l, cysto/stent without anesthesia complications. PMH significant for SOB with exertion, HTN (off meds currently 2/2 hypotension on admission with sepsis), GERD, IDDM, hypothyroidism, VERO (resolving), depression, recent steroids, diabetes insipidus, resolving sepsis (2/2 UTI). 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 Airway exam notable for MP 3, small mouth opening with somewhat limited neck extension. Patient had mental status changes so her signed her consent on her behalf. All questions answered and he agreed to general anesthesia. Dean Jackson MD Staff Anesthesiologist
--- NOTE | 2016-04-18 14:27 | Pharmacy Progress Note ---
Glycemic: Assessment & Plan Date of Service Apr 18, 2016. Assessment & Plan 04/18/16: * The patient received 25 units of insulin yesterday with fairly well- controlled BSGs past 24 hours. * Patient is NPO after midnight for procedure tomorrow, so Lantus dose will be held tonight. * If patient is hyperglycemic tomorrow morning, will consider administering small dose of Lantus at that time. Pharmacy will continue to monitor patient daily and write orders per [facility] inpatient glycemic control protocol. Thanks. * Please note that the plan above was derived based on current level of insulin resistance and hospital stress. These recommendations are appropriate for inpatient admission only. Plan of care upon discharge will need to be reassessed to avoid potential outpatient hypo/hyperglycemia.
[2016-04-18] MEDS: LATANOPROST 0.005% OP SOLN 2.5 ML BTL OP SCH (20:47)
[2016-04-18] MEDS: DESMOPRESSIN ACETATE 0.1 MG TAB PO SCH (20:47)
[2016-04-19] VITALS (9 sets, daily range): BP systolic 117–148; BP diastolic 78–83; PULSE 62–88; TEMP 36.4–36.6; O2SAT 93–99
[2016-04-19] MEDS: LEVOTHYROXINE 112 MCG TAB PO SCH (04:53)
[2016-04-19] MEDS: IMIPENEM/CILASTATIN IV 500 MG in D5W 100ML IV SCH ×3 (04:53→21:41)
[2016-04-19] MEDS: INSULIN ASPART 100 UNITS/ML 3 ML PEN SC SCH ×4 (07:00→20:21)
[2016-04-19] MEDS: BOOST GLUCOSE CONTROL PO SCH ×2 (07:30→16:47)
[2016-04-19] MEDS: NYSTATIN POWDER 15GM BTL EXT SCH ×2 (08:35→20:25)
[2016-04-19] MEDS: SODIUM CHLORIDE 0.65% NA SOLN 45 ML (OCEAN) NAE SCH (08:35)
[2016-04-19] MEDS: POTASSIUM CHLORIDE 20 MEQ TABCR PO SCH (08:36)
[2016-04-19] MEDS: CALCITRIOL 0.25 MCG CAP PO SCH (08:36)
[2016-04-19] MEDS: PANTOprazole SOD 40 MG TAB PO SCH (08:36)
[2016-04-19] MEDS: HYDROCORTISONE 10 MG TAB PO SCH ×2 (08:36→14:00)
[2016-04-19] MEDS: HEPARIN SOD 5000 UNIT/0.5 ML CARP SQ SCH ×2 (08:36→20:24)
--- NOTE | 2016-04-19 11:00 | Pharmacy Progress Note ---
Glycemic: Assessment & Plan Date of Service Apr 19, 2016. Assessment & Plan Outpatient Anti-diabetic Regimen: * Lantus 6 units Q HS * A1c = 6.6 % 04/14/16 ASSESSMENT: 04/19/16: * Patient to OR today for L nephrolithiasis and R nephroureteral stent. * Lantus held last night d/t NPO status. Will re-assess BSGs/diet status post- op and determine whether to resume Lantus this evening or continue to hold. 04/18/16 * The patient received 25 units of insulin yesterday with fairly well- controlled BSGs past 24 hours. * Patient is NPO after midnight for procedure tomorrow, so Lantus dose will be held tonight. * If patient is hyperglycemic tomorrow morning, will consider administering small dose of Lantus at that time. PLAN FOR INPATIENT GLYCEMIC CONTROL: * Lantus 6 units SQ Q HS * BSGs not available this afternoon, as pt was in OR * If HS BSG is 180 mg/dL or greater, Lantus 6 units should be resumed this evening * Continue correction factor of 25 mg/dl/unit * Continue carb ratio of 1 unit per 8 grams CHO consumed * Continue goal range of Low 120 mg/dL - High 160 mg/dL * Please note that the plan above was derived based on current level of insulin resistance and hospital stress. These recommendations are appropriate for inpatient admission only. Plan of care upon discharge will need to be reassessed to avoid potential outpatient hypo/hyperglycemia. Thank you.
--- NOTE | 2016-04-19 12:12 | Progress Note ---
Subjective Date of Service: Apr 19, 2016. Subjective Pt evaluation today including: conversation w/ patient, conversation w/ family Pain: none Voiding: no voiding problems seen and examined at bed site, no CP or SOB, had good sleep, NPO and plan for surgery today Problem List Medical Problems: (1) Acute kidney injury Status: Acute (2) VERO (acute kidney injury) Status: Acute (3) Altered mental status Status: Acute (4) Altered mental status Status: Acute (5) Altered mental status Status: Acute (6) Altered mental status Status: Acute (7) Altered mental status Status: Acute (8) Dehydration Status: Acute (9) Dysarthria Status: Acute (10) Hydronephrosis Status: Acute (11) Hydronephrosis Status: Acute (12) Kidney stone Status: Acute (13) Leukocytosis Status: Acute (14) Nausea & vomiting Status: Acute (15) Pleural effusion Status: Acute (16) Right ureteral calculus Status: Acute (17) Sepsis Status: Acute (18) Sepsis Status: Acute (19) Urinary tract infection Status: Acute Review of Systems All Other Systems: Reviewed and Negative Medications Current Inpatient Medications Medications (Trade) Dose Ordered Sig/Natalee Route Start Time Stop Time Status Last Admin Dose Admin Imipenem/ Cilastatin Sodium (Consult) 1 ea UD PRN N/A 04/13/16 11:03 05/13/16 11:02 Acetaminophen (Tylenol Tab) 650 mg Q4H PRN PO 04/13/16 11:00 05/13/16 10:59 Calcitriol (Rocaltrol Cap) 0.5 mcg DAILY PO 04/14/16 09:00 05/14/16 08:59 04/18/16 07:56 0.5 MCG Desmopressin Acetate (Desmopressin Acetate) 0.2 mg HS PO 04/13/16 21:00 05/13/16 20:59 Future hold 04/18/16 20:47 0.2 MG Insulin Glargine (Lantus Solostar Pen) 6 unit HS SC 04/13/16 21:00 05/13/16 20:59 Future Hold 04/17/16 20:49 6 UNIT Latanoprost (Xalatan Oph Soln) 1 drops HS OP 04/13/16 21:00 05/13/16 20:59 04/18/16 20:47 1 DROPS Levothyroxine Sodium (Synthroid Tab) 112 mcg DAILYBB PO 04/14/16 06:00 05/14/16 06:59 Future hold 04/19/16 04:53 112 MCG Nystatin (Mycostatin Powder) 1 appln BID EXT 04/13/16 21:00 05/13/16 20:59 04/19/16 08:35 1 APPLN Potassium Chloride (Klor-Con Tab) 20 meq DAILY PO 04/14/16 09:00 05/14/16 08:59 04/18/16 07:56 20 MEQ Sodium Chloride (Foyil Nasal [place]) 2 sprays DAILY SOVALDO 04/14/16 09:00 05/14/16 08:59 04/19/16 08:35 2 SPRAYS Heparin Sodium (Porcine) (Heparin Sq 5000 Unit/0.5ml) 5,000 unit Q12 SQ 04/13/16 21:00 05/13/16 20:59 04/18/16 20:56 5,000 UNIT Morphine Sulfate (MoRPHine SULFATE INJ) 2 mg Q4 PRN IV 04/13/16 12:45 04/27/16 12:44 Miscellaneous Information (Consult Glycemic Management Pharmacy) 1 ea UD PRN N/A 04/14/16 05:45 05/14/16 05:44 Glucose (Glucose 40% Gel) 15-30 GRAMS 15 GRAMS... UD PRN PO 04/14/16 05:45 05/14/16 05:44 Glucose (Glucose Chew Tab) 4-8 Tablets 4 Tabl... UD PRN PO 04/14/16 05:45 05/14/16 05:44 Dextrose (Dextrose 50% 50ML Syringe) 25-50ML OF 50% DW IV FOR... UD PRN IV 04/14/16 05:45 05/14/16 05:44 Glucagon (Glucagon Inj) 1 mg UD PRN SQ 04/14/16 05:45 05/14/16 05:44 Insulin Aspart (novoLOG ASPART) SLIDING SCALE ACHS SC 04/14/16 11:00 05/14/16 10:59 04/18/16 16:15 6 UNITS Pantoprazole Sodium (Protonix Tab) 40 mg QAM PO 04/15/16 09:00 05/15/16 08:59 04/18/16 07:56 40 MG Hydrocortisone (Cortef Tab) 15 mg QAM PO 04/16/16 09:00 05/16/16 08:59 04/18/16 07:55 15 MG Hydrocortisone 10 mg 10 mg DAILY@1400 PO 04/16/16 14:00 05/16/16 13:59 04/18/16 14:00 10 MG Imipenem/ Cilastatin Sodium/ Dextrose (Primaxin Iv/D5 100ml) 110 ml @ 110 mls/hr Q8@0600,1400,2200 IV 04/16/16 22:00 04/22/16 23:59 04/19/16 04:53 110 MLS/HR Enteral Nutritional Formula (Boost Glucose Control) 1 can BIDM PO 04/19/16 07:30 05/19/16 07:29 Objective Vital Signs Date Time Temp Pulse Resp B/P Pulse Ox O2 Delivery O2 Flow Rate FiO2 04/19/16 08:04 36.4 62 18 148/80 93 Room Air 04/19/16 04:00 Room Air 04/19/16 03:15 36.5 78 18 137/82 98 Room Air 04/18/16 23:59 95 Room Air 04/18/16 23:55 36.4 74 16 109/73 95 Room Air 04/18/16 20:00 Room Air 04/18/16 19:30 36.6 74 20 119/65 93 Room Air 04/18/16 16:00 36.5 70 18 125/88 91 Room Air 04/18/16 16:00 96 Room Air 04/18/16 12:00 96 Room Air 04/18/16 11:53 36.4 75 18 139/76 94 Room Air 04/18/16 10:16 75 94 04/18/16 08:35 36.5 71 18 159/80 96 Room Air Physical Exam General Appearance: WD/WN Eyes: normal inspection ENT: normal ENT inspection Neck: supple, no adenopathy, no JVD Respiratory/Chest: chest non-tender, lungs clear, normal breath sounds, no respiratory distress Cardiovascular: regular rate, rhythm, no edema, no gallop, no JVD, no murmur Abdomen: normal bowel sounds, non tender, soft, no organomegaly Extremities: normal range of motion, non-tender, normal inspection Skin: normal color Laboratory Results Last 24 Hours Test 04/18/16 11:33 04/18/16 16:04 04/18/16 20:27 04/19/16 06:29 Bedside Glucose 114 mg/dl 165 mg/dl 135 mg/dl 93 mg/dl Assessment and Plan 81 y.o.F PMHx of MDR Pseudomonas, Hx of ureteral stent was admitted on 2015 to the hospital with altered mentals status. was transferred to ICU in first 24 hours b/c sepsis with signs of tachycardia, hypotensive, worsening leukocytosis - Severe sepsis secondary to UTI, had hypotension but responded to fluids, culture neg plan for surgery by Urology this afternoon continue antibiotics cultures: no growth in urine or blood cont current Abx as per ID - Left-sided nephrolithiasis and Right-sided nephroureteral stent with 6 mm distal right ureteral calculus adjacent to the stent, plan to OR by urology on -Severe leukocytosis sec to above, improving - Hypernatremia and hyperchloremia: resolved, no further free water needed, Desmopressin 0.2 PO qHS - hx Hypopituitarism: desmopressin and hydrocortisone - hypothyroidism: Levothyroxine - VERO prior to admission: from prerenal from sepsis, resolved - Acute Metabolic encephalopathy: suspect 2/2 to UTI, resolved - Type 2 DM, cont Novolog sliding scale - hx of Hypertension: BP trending up, will resume Norvasc 10mg qAM today GI and DVt px, Heparin plan for OR today cont rest of MX DW nurse d/w pt, and health care analyst in detail, transfer to med surg Continued [facility] stay due to: multiple IV medications needed, other (needs procedure) Discharge planning: uncertain
[2016-04-19] MEDS ORDERED: FENTANYL CITRATE INJ 50 MCG/1 ML 2 ML VIAL ONE (13:42)
[2016-04-19] MEDS ORDERED: MIDAZOLAM HCL 1 MG/ML 2ML VIAL ONE (13:42)
[2016-04-19] MEDS ORDERED: EpHEDrine SULFATE INJ 50 MG/ML AMP IV PRN (14:00)
[2016-04-19] MEDS ORDERED: FENTANYL CITRATE INJ 50 MCG/1 ML 2 ML VIAL IV PRN (14:00)
[2016-04-19] MEDS ORDERED: ATROPINE SULFATE 0.1 MG/ML 5ML SYR IV PRN (14:00)
[2016-04-19] MEDS ORDERED: ONDANSETRON INJ 2 MG/ML 2 ML VIAL IV PRN (14:00)
--- NOTE | 2016-04-19 14:00 | History & Physical Bridge Note ---
H&P Re-Evaluation Bridge Note: I have examined the patient, reviewed the History & Physical and in the interval since the performance of the History & Physical I have noted the following changes of clinical significance: No changes noted
[2016-04-19] MEDS ORDERED: PROPOFOL IV EMULSION 10 MG/ML 20 ML VIAL IV ONE (15:02)
--- NOTE | 2016-04-19 15:20 | DIAGNOSTIC IMAGING REPORT ---
RETROGRADE INCLUDES KUB HISTORY: RT URETERAL LASER/STENT FLUOROSCOPY TIME: 38 seconds. FINDINGS: 3 fluoroscopic spot images were submitted for review. Contrast was injected into the right ureter/renal collecting system in a retrograde fashion. This is followed by placement of a guidewire and a ureteral stent. Only the proximal portion of the ureteral stent is identified and appears to be in good position. IMPRESSION: Fluoroscopy provided for right ureteral stent placement.. Electronically signed by: Joey Archer M.D. 04/19/2016 3:19 PM
--- NOTE | 2016-04-19 15:26 | [facility] Post Operative Brief Note ---
Immediate Operative Summary Operative Date Apr 19, 2016. Pre-Operative Diagnosis Right distal ureteral stone, history of urosepsis Post-Operative Diagnosis Same as preoperative diagnosis Procedure(s) Performed Cystoscopy, Right Retrograde Pyelogram, Right Semi rigid Ureteroscopy, Laser Lithotripsy of Right Ureteral stone; Ureteral Stent Exchange Surgeon Dr. Jameel Bojorquez Carpenter General Surgeon(s) None Estimated Blood Loss 0 mL Findings No residual stones to vessels, stent in good position Specimens Permanent specimens A: Right distal ureteral stone for analysis Drains 6 fr 24 cm R loop stent with string Anesthesia [facility] Complication(s) None Disposition Recovery Room / PACU
[2016-04-19] MEDS ORDERED: CONRAY 30% 150ML BOTTLE INSTIL ONE (15:31)
--- NOTE | 2016-04-19 16:08 | Anesthesiology Progress Note ---
Anesthesia Post Op Note Date & Time Apr 19, 2016 at 16:07 Vital Signs Pain Intensity: 0.0 Vital Signs Past 12 Hours Date Time Temp Pulse Resp B/P Pulse Ox O2 Delivery O2 Flow Rate FiO2 04/19/16 15:50 36.2 87 16 130/66 98 Nasal Cannula 2 04/19/16 15:40 89 12 107/68 98 Mask 10 04/19/16 15:30 86 12 122/72 100 Mask 10 04/19/16 15:20 36.2 86 12 121/70 100 Mask 10 04/19/16 12:00 96 Room Air 04/19/16 11:40 36.4 80 18 134/83 94 Room Air 04/19/16 08:04 36.4 62 18 148/80 93 Room Air 04/19/16 08:00 96 Room Air Notes Mental Status: alert / awake / arousable, participated in evaluation Pt Amnestic to Procedure: Yes Nausea / Vomiting: adequately controlled Pain: adequately controlled Airway Patency, RR, SpO2: stable & adequate BP & HR: stable & adequate Hydration State: stable & adequate Anesthetic Complications: no major complications apparent
[2016-04-19] MEDS: LATANOPROST 0.005% OP SOLN 2.5 ML BTL OP SCH (20:22)
[2016-04-19] MEDS: DESMOPRESSIN ACETATE 0.1 MG TAB PO SCH (20:22)
--- NOTE | 2016-04-19 23:26 | OPERATIVE REPORT ---
DATE OF OPERATION: 04/19/2016 PREOPERATIVE DIAGNOSIS: Distal right 6 mm ureteral stone with indwelling stent and history of urosepsis. POSTOPERATIVE DIAGNOSIS: Same. PROCEDURES: Cystoscopy, right retrograde pyelography, right semirigid ureteroscopy with laser lithotripsy, stone extraction, and ureteral stent exchange. SURGEON: Dr. Jameel Bojorquez. BALL TRUING MACHINE OPERATOR: None. ANESTHESIA: General anesthesia with laryngeal mask. COMPLICATIONS: None. SPECIMENS SENT TO PATHOLOGY: Right distal ureteral stone fragments for chemical analysis. DRAINS LEFT IN PLACE: Include a 6-Tajik 24 cm double-J ureteral stent with string attached. ESTIMATED BLOOD LOSS: Minimal. FINDINGS: No evidence of residual stones at the level of the iliac vessels, good stent position on fluoroscopy. BRIEF HISTORY: Ms. Valencia is an 81-year-old female with a history of deteriorating mental status, sepsis and stone who underwent an acute ureteral stent placement on the right hand side approximately 1 month ago. Unfortunately, with management of her UTI as an outpatient, she has continued to require parenteral antibiotics due to allergies and had episodes of decompensation requiring hospital admission. She is being currently managed by the infectious disease service and has been readmitted several days ago due to more issues with infection. I have seen that she is currently an inpatient. Her outpatient ureteroscopy with stone management has been brought forward to allow her to be managed while she is acutely admitted and covered with antibiotics. Please see consultation and progress notes for further details. SCDs used for DVT prophylaxis. PROCEDURE IN DETAIL: The patient was properly identified and brought to the operative suite. After identification of appropriate consent on the chart, general anesthesia with laryngeal mask was initiated. The patient was prepped and draped in standard fashion for this procedure. [employer]-out procedure was followed. Intravenous antibiotic coverage per the primary service initially. A 22-Tajik rigid cystoscope was passed into the bladder under direct visualization and bladder was surveyed in its entirety, demonstrating no intravesical lesions, papillary masses, or calculi. Mild mucosal irritation from the presence of an indwelling stent was appreciated and a right-sided redundant coil multilength stent was noted within the bladder without encrustation. This was grasped using a stent grasper and brought down to the level of the meatus. It was cannulated and a sensor tip wire was advanced up to the level of the right renal pelvis without resistance or difficulties. An open-ended catheter was placed over this and collecting system was opacified to allow for better identification of the structures. No evidence of filling defects or irregularities in the renal collecting system were noted. Sensor tip wire was replaced and kept as a safety wire until the end of the case. Semi-rigid ureteroscope was able to be advanced into the distal ureter without need for dilation seen in her previous stent placement. Stone was encountered in the distal ureter, as had been noted on previous imaging. A 200 micron laser fiber was used to fragment the stone into relatively small pieces. Her stone was noted to be quite soft. Stone pieces were grasped and extracted. These were sent for chemical analysis. After completion of lithotripsy and stone extraction, ureteroscope was readvanced up to the level of the iliac vessels with no evidence of ureteral tears, injury or residual stone. Some expected edema at the level of the stone was noted. Cystoscope was backloaded over the safety wire and a 6-Tajik 24 cm double-J ureteral stent was advanced with a full coil present within the renal pelvis and a full coil present within the bladder. String was left in place and adhered to the inside of the right thigh using Steri-Strips and benzoin. Bladder was drained and cystoscope was removed, anesthesia was reversed and the patient was transferred to the recovery room in stable condition. FOLLOWUP CARE: The patient will be readmitted to the floor to the primary service. Continue parenteral antibiotics as previous. Should be able to have stent removed via string prior to discharge home ideally in 2-3 days. I attest to the content of the Intraoperative Record and any orders documented therein. Any exceptio ns are noted below.
[2016-04-19] MEDS ORDERED: ACETAMINOPHEN 325 MG TAB PO PRN (23:30)
[2016-04-20] VITALS (9 sets, daily range): BP systolic 103–125; BP diastolic 64–80; PULSE 82–91; TEMP 36.5–36.8; O2SAT 91–96
[2016-04-20] MEDS: LEVOTHYROXINE 112 MCG TAB PO SCH (05:33)
[2016-04-20] MEDS: IMIPENEM/CILASTATIN IV 500 MG in D5W 100ML IV SCH ×2 (05:33→13:51)
[2016-04-20 07:29] LABS: CREATININE 1.1 mg/dl (0.60-1.20)
[2016-04-20] MEDS: BOOST GLUCOSE CONTROL PO SCH ×2 (08:14→17:57)
[2016-04-20] MEDS: NYSTATIN POWDER 15GM BTL EXT SCH ×2 (08:14→20:00)
[2016-04-20] MEDS: SODIUM CHLORIDE 0.65% NA SOLN 45 ML (OCEAN) NAE SCH (08:15)
[2016-04-20] MEDS: HYDROCORTISONE 10 MG TAB PO SCH ×2 (08:15→15:13)
[2016-04-20] MEDS: CALCITRIOL 0.25 MCG CAP PO SCH (08:16)
[2016-04-20] MEDS: POTASSIUM CHLORIDE 20 MEQ TABCR PO SCH (08:16)
[2016-04-20] MEDS: PANTOprazole SOD 40 MG TAB PO SCH (08:16)
[2016-04-20] MEDS: HEPARIN SOD 5000 UNIT/0.5 ML CARP SQ SCH ×2 (08:20→22:17)
[2016-04-20] MEDS: INSULIN ASPART 100 UNITS/ML 3 ML PEN SC SCH ×4 (08:20→20:30)
--- NOTE | 2016-04-20 08:49 | Anesthesiology Progress Note ---
Anesthesia Post Op Note Date & Time Apr 20, 2016 at 08:47 Vital Signs Pain Intensity: 7.0 Vital Signs Past 12 Hours Date Time Temp Pulse Resp B/P Pulse Ox O2 Delivery O2 Flow Rate FiO2 04/20/16 08:04 36.8 84 20 125/80 91 Room Air 04/20/16 04:00 Room Air 04/20/16 03:56 36.5 84 19 117/77 94 Room Air 04/19/16 23:59 95 Room Air 04/19/16 23:29 36.5 88 19 117/81 95 Room Air Notes Mental Status: alert / awake / arousable, participated in evaluation Pt Amnestic to Procedure: Yes Nausea / Vomiting: adequately controlled Pain: adequately controlled Airway Patency, RR, SpO2: stable & adequate BP & HR: stable & adequate Hydration State: stable & adequate Anesthetic Complications: no major complications apparent
--- NOTE | 2016-04-20 09:48 | Progress Note ---
Subjective Date of Service: Apr 20, 2016. Subjective Pt evaluation today including: conversation w/ family, physical exam, chart review, lab review, review of inpatient medication list Pain: Resting comfortably Voiding: incontinence 81 yo female POD#1 s/p R uscope, laser litho, tethered stent. Her history of difficulties from possible UTI vs. MS changes noted. She remains on ABx per hospitalist and ID protocol. Distal stone on right removed yesterday. History from and aide, patient resting. New symptoms consistent with stent irritation, no other worrisome findings. Problem List Medical Problems: (1) Acute kidney injury Status: Acute (2) VERO (acute kidney injury) Status: Acute (3) Altered mental status Status: Acute (4) Altered mental status Status: Acute (5) Altered mental status Status: Acute (6) Altered mental status Status: Acute (7) Altered mental status Status: Acute (8) Dehydration Status: Acute (9) Dysarthria Status: Acute (10) Hydronephrosis Status: Acute (11) Hydronephrosis Status: Acute (12) Kidney stone Status: Acute (13) Leukocytosis Status: Acute (14) Nausea & vomiting Status: Acute (15) Pleural effusion Status: Acute (16) Right ureteral calculus Status: Acute (17) Sepsis Status: Acute (18) Sepsis Status: Acute (19) Urinary tract infection Status: Acute Review of Systems Constitutional: No chills, No fever ENT: No unusual epistaxis Respiratory: No shortness of breath Cardiac: No chest pain Abdomen: No vomiting Female : + incontinence, + see HPI Neurologic: + memory loss Psychiatric: No insomnia Skin: No new/changing skin lesions Objective Vital Signs Date Time Temp Pulse Resp B/P Pulse Ox O2 Delivery O2 Flow Rate FiO2 04/20/16 08:04 36.8 84 20 125/80 91 Room Air 04/20/16 08:00 96 Room Air 04/20/16 04:00 Room Air 04/20/16 03:56 36.5 84 19 117/77 94 Room Air 04/19/16 23:59 95 Room Air 04/19/16 23:29 36.5 88 19 117/81 95 Room Air 04/19/16 20:00 Room Air 04/19/16 20:00 36.5 84 16 134/81 96 Room Air 04/19/16 16:00 36.6 84 20 124/78 99 Nasal Cannula 2.0 04/19/16 16:00 96 Room Air 04/19/16 15:50 36.2 87 16 130/66 98 Nasal Cannula 2 04/19/16 15:40 89 12 107/68 98 Mask 10 04/19/16 15:30 86 12 122/72 100 Mask 10 04/19/16 15:20 36.2 86 12 121/70 100 Mask 10 04/19/16 12:00 96 Room Air 04/19/16 11:40 36.4 80 18 134/83 94 Room Air Physical Exam General Appearance: WD/WN, no apparent distress ENT: hearing grossly normal Respiratory/Chest: no respiratory distress, no accessory muscle use Cardiovascular: no JVD Abdomen: non tender, soft Skin: normal color Laboratory Results Last 24 Hours Test 04/19/16 12:17 04/20/16 07:00 Bedside Glucose 110 mg/dl Creatinine 1.10 mg/dl Est Creatinine Clear Calc Drug Dose 38.6 ml/min Estimated GFR () 54.9 Estimated GFR (Non- 47.4 Assessment and Plan A/P 81 yo female POD#1 s/p R uscope, laser litho. Would plan on removing stent prior to DC home over weekend. Relatively atraumatic uscope, had been stented for almost a month prior. Tethered stent can be removed at bedside by nursing. Follow-up in our office as planned. Management of infectious issues per primary service / ID. Continued [facility] stay due to: multiple IV medications needed, other (needs procedure) Discharge planning: uncertain
--- NOTE | 2016-04-20 10:31 | Pharmacy Progress Note ---
Glycemic: Assessment & Plan Date of Service Apr 20, 2016. Assessment & Plan Outpatient Anti-diabetic Regimen: * Lantus 6 units Q HS * A1c = 6.6 % 04/14/16 ASSESSMENT: 04/20/16: * Lantus was held again last evening. Patient did not require any insulin at all yesterday. * Patient's PO steroids were held yesterday as pt was NPO for OR. * Expect that as BSGs normalize post-op, steroids have been resumed, and diet has been resumed, Lantus may be added back this evening. * Will allow HS BSG to determine whether Lantus dose necessary tonight or not. 04/19/16 * Patient received 12 units of insulin yesterday with 100% of BSGs within or near goal range. * Patient to OR today for L nephrolithiasis and R nephroureteral stent. * Lantus held last night d/t NPO status. Will re-assess BSGs/diet status post- op and determine whether to resume Lantus this evening or continue to hold. 04/18/16 * The patient received 25 units of insulin yesterday with fairly well- controlled BSGs past 24 hours. * Patient is NPO after midnight for procedure tomorrow, so Lantus dose will be held tonight. * If patient is hyperglycemic tomorrow morning, will consider administering small dose of Lantus at that time. PLAN FOR INPATIENT GLYCEMIC CONTROL: * Lantus 6 units SQ Q HS -- on hold * If HS BSG is 180 mg/dL or greater, Lantus 6 units should be resumed this evening * Pending order on profile to alert nursing of these parameters * Novolog for correctional/prandial coverage, accu-checks ACHS * Correction factor: 25 mg/dl/unit * Carb ratio: 1 unit per 8 grams CHO consumed * Goal range: Low 120 mg/dL - High 160 mg/dL * Please note that the plan above was derived based on current level of insulin resistance and hospital stress. These recommendations are appropriate for inpatient admission only. Plan of care upon discharge will need to be reassessed to avoid potential outpatient hypo/hyperglycemia. Thank you.
--- NOTE | 2016-04-20 11:13 | Progress Note ---
Subjective Date of Service: Apr 20, 2016. Subjective Pt evaluation today including: conversation w/ patient, conversation w/ family , chart review, lab review, review of studies, review of inpatient medication list Pain: mild abd discomfort Voiding: no voiding problems seen and examined awake and alert afebrile, no CP or SOB, c/o mild abd discomfort poss from the stent placed in, no N or V, slept well, family at bed site Problem List Medical Problems: (1) Acute kidney injury Status: Acute (2) VERO (acute kidney injury) Status: Acute (3) Altered mental status Status: Acute (4) Altered mental status Status: Acute (5) Altered mental status Status: Acute (6) Altered mental status Status: Acute (7) Altered mental status Status: Acute (8) Dehydration Status: Acute (9) Dysarthria Status: Acute (10) Hydronephrosis Status: Acute (11) Hydronephrosis Status: Acute (12) Kidney stone Status: Acute (13) Leukocytosis Status: Acute (14) Nausea & vomiting Status: Acute (15) Pleural effusion Status: Acute (16) Right ureteral calculus Status: Acute (17) Sepsis Status: Acute (18) Sepsis Status: Acute (19) Urinary tract infection Status: Acute Review of Systems Constitutional: No chills, No fatigue, No fever, No problem reported, No see HPI, No sweats, No weakness, No weight loss Eyes: No diplopia, No discharge, No eye pain, No problem reported, No redness, No see HPI, No worsening of vision ENT: No dental problems, No hearing loss, No nasal symptoms, No problem reported, No see HPI, No sore throat, No tinnitus, No trouble swallowing, No unusual epistaxis Respiratory: No cough, No dyspnea at rest, No dyspnea on exertion, No hemoptysis, No problem reported, No see HPI, No shortness of breath, No sputum, No wheezing Cardiac: No PND, No chest pain, No claudication, No edema, No orthopnea, No palpitations, No problem reported, No see HPI Abdomen: + pain (mild) Musculoskeletal: No calf pain, No joint pain, No muscle pain, No problem reported, No see HPI, No swelling Female : No abnormal vaginal bleeding, No dysuria, No hematuria, No incontinence, No problem reported, No see HPI, No urinary frequency, No vaginal discharge Neurologic: No balance problems, No memory loss, No numbness/tingling, No paralysis, No problem reported, No see HPI, No vertigo, No weakness Medications Current Inpatient Medications Medications (Trade) Dose Ordered Sig/Natalee Route Start Time Stop Time Status Last Admin Dose Admin Imipenem/ Cilastatin Sodium (Consult) 1 ea UD PRN N/A 04/13/16 11:03 05/13/16 11:02 Calcitriol (Rocaltrol Cap) 0.5 mcg DAILY PO 04/14/16 09:00 05/14/16 08:59 04/20/16 08:16 0.5 MCG Desmopressin Acetate (Desmopressin Acetate) 0.2 mg HS PO 04/13/16 21:00 05/13/16 20:59 Future hold 04/19/16 20:22 0.2 MG Insulin Glargine (Lantus Solostar Pen) 6 unit HS SC 04/13/16 21:00 05/13/16 20:59 Future Hold 04/17/16 20:49 6 UNIT Latanoprost (Xalatan Oph Soln) 1 drops HS OP 04/13/16 21:00 05/13/16 20:59 04/19/16 20:22 1 DROPS Levothyroxine Sodium (Synthroid Tab) 112 mcg DAILYBB PO 04/14/16 06:00 05/14/16 06:59 Future hold 04/20/16 05:33 112 MCG Nystatin (Mycostatin Powder) 1 appln BID EXT 04/13/16 21:00 05/13/16 20:59 04/20/16 08:14 1 APPLN Potassium Chloride (Klor-Con Tab) 20 meq DAILY PO 04/14/16 09:00 05/14/16 08:59 04/20/16 08:16 20 MEQ Sodium Chloride ([place] Nasal Rayne) 2 sprays DAILY OSVALDO 04/14/16 09:00 05/14/16 08:59 04/20/16 08:15 2 SPRAYS Heparin Sodium (Porcine) (Heparin Sq 5000 Unit/0.5ml) 5,000 unit Q12 SQ 04/13/16 21:00 05/13/16 20:59 04/20/16 08:20 5,000 UNIT Morphine Sulfate (MoRPHine SULFATE INJ) 2 mg Q4 PRN IV 04/13/16 12:45 04/27/16 12:44 Miscellaneous Information (Consult Glycemic Management Pharmacy) 1 ea UD PRN N/A 04/14/16 05:45 05/14/16 05:44 Glucose (Glucose 40% Gel) 15-30 GRAMS 15 GRAMS... UD PRN PO 04/14/16 05:45 05/14/16 05:44 Glucose (Glucose Chew Tab) 4-8 Tablets 4 Tabl... UD PRN PO 04/14/16 05:45 05/14/16 05:44 Dextrose (Dextrose 50% 50ML Syringe) 25-50ML OF 50% DW IV FOR... UD PRN IV 04/14/16 05:45 05/14/16 05:44 Glucagon (Glucagon Inj) 1 mg UD PRN SQ 04/14/16 05:45 05/14/16 05:44 Insulin Aspart (novoLOG ASPART) SLIDING SCALE ACHS SC 04/14/16 11:00 05/14/16 10:59 04/20/16 08:20 7 UNITS Pantoprazole Sodium (Protonix Tab) 40 mg QAM PO 04/15/16 09:00 05/15/16 08:59 04/20/16 08:16 40 MG Hydrocortisone (Cortef Tab) 15 mg QAM PO 04/16/16 09:00 05/16/16 08:59 04/20/16 08:15 15 MG Hydrocortisone 10 mg 10 mg DAILY@1400 PO 04/16/16 14:00 05/16/16 13:59 04/18/16 14:00 10 MG Imipenem/ Cilastatin Sodium/ Dextrose (Primaxin Iv/D5 100ml) 110 ml @ 110 mls/hr Q8@0600,1400,2200 IV 04/16/16 22:00 04/22/16 23:59 04/20/16 05:33 110 MLS/HR Enteral Nutritional Formula (Boost Glucose Control) 1 can BIDM PO 04/19/16 07:30 05/19/16 07:29 04/20/16 08:14 1 CAN Acetaminophen (Tylenol Tab) 650 mg Q4H PRN PO 04/19/16 23:30 05/19/16 23:29 04/19/16 23:23 650 MG Objective Vital Signs Date Time Temp Pulse Resp B/P Pulse Ox O2 Delivery O2 Flow Rate FiO2 04/20/16 08:04 36.8 84 20 125/80 91 Room Air 04/20/16 08:00 96 Room Air 04/20/16 04:00 Room Air 04/20/16 03:56 36.5 84 19 117/77 94 Room Air 04/19/16 23:59 95 Room Air 04/19/16 23:29 36.5 88 19 117/81 95 Room Air 04/19/16 20:00 Room Air 04/19/16 20:00 36.5 84 16 134/81 96 Room Air 04/19/16 16:00 36.6 84 20 124/78 99 Nasal Cannula 2.0 04/19/16 16:00 96 Room Air 04/19/16 15:50 36.2 87 16 130/66 98 Nasal Cannula 2 04/19/16 15:40 89 12 107/68 98 Mask 10 04/19/16 15:30 86 12 122/72 100 Mask 10 04/19/16 15:20 36.2 86 12 121/70 100 Mask 10 04/19/16 12:00 96 Room Air 04/19/16 11:40 36.4 80 18 134/83 94 Room Air Physical Exam General Appearance: no apparent distress, + obese Eyes: normal inspection ENT: normal ENT inspection Neck: supple, no JVD, no carotid bruits Respiratory/Chest: chest non-tender, lungs clear, normal breath sounds, no respiratory distress Cardiovascular: regular rate, rhythm, no edema, no gallop, no JVD, no murmur Abdomen: normal bowel sounds, non tender, soft, no organomegaly Extremities: normal range of motion, non-tender, normal inspection Neurologic/Psychiatric: no motor/sensory deficits, alert, normal mood/affect, oriented x 3 Laboratory Results Last 24 Hours Test 04/19/16 12:17 04/20/16 07:00 Bedside Glucose 110 mg/dl Creatinine 1.10 mg/dl Est Creatinine Clear Calc Drug Dose 38.6 ml/min Estimated GFR () 54.9 Estimated GFR (Non- 47.4 Assessment and Plan 81 y.o.F PMHx of MDR Pseudomonas, Hx of ureteral stent was admitted on 2015 to the hospital with altered mentals status. was transferred to ICU in first 24 hours b/c sepsis with signs of tachycardia, hypotensive, worsening leukocytosis - Severe sepsis secondary to UTI, had hypotension but responded to fluids, culture neg S/P ureteral stone removal and stent replacement by urology yesterday continue antibiotics cultures: no growth in urine or blood cont current Abx as per ID - Left-sided nephrolithiasis and Right-sided nephroureteral stent with 6 mm distal right ureteral calculus adjacent to the stent, plan to OR by urology on S/P ureteral stone removal and stent replacement by urology yesterday -Severe leukocytosis sec to above, improving - Hypernatremia and hyperchloremia: resolved, no further free water needed, Desmopressin 0.2 PO qHS - hx Hypopituitarism: desmopressin and hydrocortisone - hypothyroidism: Levothyroxine - VERO prior to admission: from prerenal from sepsis, resolved - Acute Metabolic encephalopathy: suspect 2/2 to UTI, resolved - Type 2 DM, cont Novolog sliding scale - hx of Hypertension: BP trending up, will resume Norvasc 10mg qAM today GI and DVt px, Heparin stent remvoal over next couple of days and Abx as per ID and can be dced if no issues cont rest of MX DW nurse d/w pt, and child care cook in detail, transfer to med surg Continued [facility] stay due to: multiple IV medications needed, other (needs procedure) Discharge planning: uncertain
[2016-04-20] MEDS ORDERED: NITROGLYCERIN 0.4 MG SL PER TAB CHARGE ONE (13:21)
[2016-04-20] MEDS ORDERED: NURSING VERBAL MED ORDER ONE (13:30)
[2016-04-20] MEDS ORDERED: NITROGLYCERIN 0.4 MG SL PER TAB CHARGE SL PRN (13:45)
[2016-04-20] MEDS ORDERED: ERTAPENEM IV 1 GM in SODIUM CHLOR 0.9% AD-VAN 50ML 50 ML IV SCH (15:00)
[2016-04-20 19:40] LABS: CKMB/CK RATIO 4.5 (0-3.0)
[2016-04-20] MEDS: DESMOPRESSIN ACETATE 0.1 MG TAB PO SCH (22:16)
[2016-04-20] MEDS: IMIPENEM/CILASTATIN IV 500 MG in DEXTROSE 5% 100ML 100 ML IV SCH (22:16)
[2016-04-20] MEDS: LATANOPROST 0.005% OP SOLN 2.5 ML BTL OP SCH (22:24)
[2016-04-21 02:34] LABS: CKMB/CK RATIO 4.5 (0-3.0)
[2016-04-21] MEDS: IMIPENEM/CILASTATIN IV 500 MG in DEXTROSE 5% 100ML 100 ML IV SCH (05:47)
[2016-04-21] MEDS: LEVOTHYROXINE 112 MCG TAB PO SCH (05:48)
[2016-04-21 06:52] LABS: CREATININE 1.2 mg/dl (0.60-1.20)
[2016-04-21 08:08] VITALS: BP 127/64; PULSE 86; TEMP 36.7; O2SAT 95
[2016-04-21] MEDS: BOOST GLUCOSE CONTROL PO SCH ×2 (08:59→18:22)
[2016-04-21] MEDS: HYDROCORTISONE 10 MG TAB PO SCH ×2 (09:00→14:01)
[2016-04-21] MEDS: POTASSIUM CHLORIDE 20 MEQ TABCR PO SCH (09:01)
[2016-04-21] MEDS: PANTOprazole SOD 40 MG TAB PO SCH (09:02)
[2016-04-21] MEDS: CALCITRIOL 0.25 MCG CAP PO SCH (09:02)
[2016-04-21] MEDS: INSULIN ASPART 100 UNITS/ML 3 ML PEN SC SCH ×4 (09:06→20:27)
[2016-04-21] MEDS: HEPARIN SOD 5000 UNIT/0.5 ML CARP SQ SCH ×2 (09:57→20:27)
[2016-04-21 10:00] VITALS: O2SAT 95
[2016-04-21] MEDS: NYSTATIN POWDER 15GM BTL EXT SCH ×2 (10:03→20:07)
[2016-04-21] MEDS: SODIUM CHLORIDE 0.65% NA SOLN 45 ML (OCEAN) NAE SCH (10:05)
--- NOTE | 2016-04-21 10:11 | Progress Note ---
Progress Note S/p treatment of right ureteral stone - stent with string now in place - doing well from a subjective standpoint - aside from weakness, no other complaints - no stent discomfort O: 04/21/16 05:33 Test 04/21/16 01:40 04/21/16 05:33 04/21/16 07:58 Total Creatine Kinase 11 U/L (26-192) Creatine Kinase MB 0.5 ng/ml (0.5-3.6) Creatine Kinase MB Ratio 4.5 (0-3.0) Troponin I < 0.015 ng/ml (0-0.045) Est Creatinine Clear Calc Drug Dose 35.4 ml/min Estimated GFR () 49.4 Estimated GFR (Non- 42.7 Bedside Glucose 118 mg/dl (70-90) Vital Signs Past 12 Hours Date Time Temp Pulse Resp B/P Pulse Ox O2 Delivery O2 Flow Rate FiO2 04/21/16 08:08 36.7 86 16 127/64 95 Room Air 04/21/16 01:40 Room Air 04/20/16 23:30 36.6 87 16 113/65 94 Room Air 04/20/16 22:20 Room Air In bed responds appropriately oriented abd soft, NT, ND A/p: s/p treatment of right ureteral stone - leukocytosis has improved notably - assuming she progresses well overnight, plan for stent d/c tomorrow morning - possible d/c home tomorrow evening or Saturday morning - most recent cultures were NG - will have to determine if abx are needed after d/c
[2016-04-21] MEDS: IMIPENEM-CILASTATIN 250 MG in DEXTROSE 5% 100ML 100 ML IV SCH ×2 (12:15→18:56)
--- NOTE | 2016-04-21 14:57 | Progress Note ---
Subjective Date of Service: Apr 21, 2016. Subjective Pt evaluation today including: conversation w/ patient, conversation w/ family Pain: well seen and examined sleepy , but holds appropriate conversations, no CP or SOB, or Abd pain or discomfort, tolerates diet well still has the stent plan to be removed tomorrow Problem List Medical Problems: (1) Acute kidney injury Status: Acute (2) VERO (acute kidney injury) Status: Acute (3) Altered mental status Status: Acute (4) Altered mental status Status: Acute (5) Altered mental status Status: Acute (6) Altered mental status Status: Acute (7) Altered mental status Status: Acute (8) Dehydration Status: Acute (9) Dysarthria Status: Acute (10) Hydronephrosis Status: Acute (11) Hydronephrosis Status: Acute (12) Kidney stone Status: Acute (13) Leukocytosis Status: Acute (14) Nausea & vomiting Status: Acute (15) Pleural effusion Status: Acute (16) Right ureteral calculus Status: Acute (17) Sepsis Status: Acute (18) Sepsis Status: Acute (19) Urinary tract infection Status: Acute Review of Systems Constitutional: No chills, No fatigue, No fever, No problem reported, No see HPI, No sweats, No weakness, No weight loss Eyes: No diplopia, No discharge, No eye pain, No problem reported, No redness, No see HPI, No worsening of vision ENT: No dental problems, No hearing loss, No nasal symptoms, No problem reported, No see HPI, No sore throat, No tinnitus, No trouble swallowing, No unusual epistaxis Respiratory: No cough, No dyspnea at rest, No dyspnea on exertion, No hemoptysis, No problem reported, No see HPI, No shortness of breath, No sputum, No wheezing Cardiac: No PND, No chest pain, No claudication, No edema, No orthopnea, No palpitations, No problem reported, No see HPI Abdomen: No GI bleeding, No constipation, No diarrhea, No nausea, No pain, No problem reported, No see HPI, No vomiting Musculoskeletal: No calf pain, No joint pain, No muscle pain, No problem reported, No see HPI, No swelling Female : No abnormal vaginal bleeding, No dysuria, No hematuria, No incontinence, No problem reported, No see HPI, No urinary frequency, No vaginal discharge Neurologic: No balance problems, No memory loss, No numbness/tingling, No paralysis, No problem reported, No see HPI, No vertigo, No weakness Psychiatric: No anhedonism, No anxiety, No depression symptoms, No insomnia, No problem reported, No see HPI, No substance abuse Objective Vital Signs Date Time Temp Pulse Resp B/P Pulse Ox O2 Delivery O2 Flow Rate FiO2 04/21/16 08:08 36.7 86 16 127/64 95 Room Air 04/21/16 01:40 Room Air 04/20/16 23:30 36.6 87 16 113/65 94 Room Air 04/20/16 22:20 Room Air 04/20/16 15:38 36.6 82 18 118/78 94 Room Air 04/20/16 15:15 Room Air 04/20/16 12:56 36.8 91 18 117/75 93 Room Air 04/20/16 12:40 36.6 89 22 96 2.0 04/20/16 12:00 96 Room Air 04/20/16 11:45 36.6 89 22 103/64 95 Room Air Physical Exam General Appearance: no apparent distress, + obese Eyes: normal inspection ENT: normal ENT inspection, pharynx normal Neck: supple, no JVD, no carotid bruits Respiratory/Chest: chest non-tender, lungs clear, normal breath sounds, no respiratory distress Cardiovascular: regular rate, rhythm, no edema, no gallop, no JVD, no murmur Abdomen: normal bowel sounds, non tender, soft, no organomegaly Extremities: normal range of motion, non-tender, normal inspection, no pedal edema, no calf tenderness Neurologic/Psychiatric: normal mood/affect, oriented x 3 Skin: normal color Laboratory Results Last 24 Hours Test 04/20/16 11:09 04/20/16 13:30 04/20/16 16:43 04/20/16 19:00 Bedside Glucose 116 mg/dl 176 mg/dl Total Creatine Kinase 10 U/L 11 U/L Creatine Kinase MB < 0.5 ng/ml 0.5 ng/ml Creatine Kinase MB Ratio 4.5 Troponin I < 0.015 ng/ml < 0.015 ng/ml Test 04/20/16 20:19 04/21/16 01:40 04/21/16 05:33 04/21/16 07:58 Bedside Glucose 142 mg/dl 118 mg/dl Total Creatine Kinase 11 U/L Creatine Kinase MB 0.5 ng/ml Creatine Kinase MB Ratio 4.5 Troponin I < 0.015 ng/ml Creatinine 1.20 mg/dl Est Creatinine Clear Calc Drug Dose 35.4 ml/min Estimated GFR () 49.4 Estimated GFR (Non- 42.7 Assessment and Plan 81 y.o.F PMHx of MDR Pseudomonas, Hx of ureteral stent was admitted on 2015 to the hospital with altered mentals status. was transferred to ICU in first 24 hours b/c sepsis with signs of tachycardia, hypotensive, worsening leukocytosis - Severe sepsis secondary to UTI, had hypotension but responded to fluids, culture neg S/P ureteral stone removal and stent replacement , 2nd post op day continue antibiotics while in hospital my not needs Abx after DC, her urine on Mar 29 grew pseudomonas, no is clean cultures: no growth in urine or blood plan to remove stent in am and poss dc in same day or day after - Left-sided nephrolithiasis and Right-sided nephroureteral stent with 6 mm distal right ureteral calculus adjacent to the stent, plan to OR by urology on S/P ureteral stone removal and stent replacement by urology yesterday -Severe leukocytosis sec to above, improving - Hypernatremia and hyperchloremia: resolved, no further free water needed, Desmopressin 0.2 PO qHS - hx Hypopituitarism: desmopressin and hydrocortisone - hypothyroidism: Levothyroxine - VERO prior to admission: from prerenal from sepsis, resolved - Acute Metabolic encephalopathy: suspect 2/2 to UTI, resolved - Type 2 DM, cont Novolog sliding scale - hx of Hypertension: BP trending up, will resume Norvasc 10mg qAM today GI and DVt px, Heparin stent removal poss in am cont rest of MX DW nurse d/w pt, and anesthesiologist and critical care in detail, Continued [facility] stay due to: multiple IV medications needed, other (needs procedure) Discharge planning: uncertain
[2016-04-21 15:14] VITALS: BP 127/67; PULSE 88; TEMP 36.7; O2SAT 90
[2016-04-21] MEDS: LATANOPROST 0.005% OP SOLN 2.5 ML BTL OP SCH (20:07)
[2016-04-21] MEDS: DESMOPRESSIN ACETATE 0.1 MG TAB PO SCH (20:07)
[2016-04-21 22:58] VITALS: BP 125/81; PULSE 79; TEMP 36.6; O2SAT 93
[2016-04-22] MEDS: IMIPENEM-CILASTATIN 250 MG in DEXTROSE 5% 100ML 100 ML IV SCH ×5 (00:45→23:56)
[2016-04-22 06:02] LABS: CREATININE 1.2 mg/dl (0.60-1.20)
[2016-04-22] MEDS: LEVOTHYROXINE 112 MCG TAB PO SCH (06:06)
[2016-04-22 07:32] VITALS: BP 148/82; PULSE 74; TEMP 36.5; O2SAT 95
[2016-04-22] MEDS: BOOST GLUCOSE CONTROL PO SCH ×2 (08:44→17:00)
[2016-04-22] MEDS: SODIUM CHLORIDE 0.65% NA SOLN 45 ML (OCEAN) NAE SCH (08:45)
[2016-04-22] MEDS: NYSTATIN POWDER 15GM BTL EXT SCH ×2 (08:45→20:56)
[2016-04-22] MEDS: HYDROCORTISONE 10 MG TAB PO SCH ×2 (08:46→13:45)
[2016-04-22] MEDS: POTASSIUM CHLORIDE 20 MEQ TABCR PO SCH (08:47)
[2016-04-22] MEDS: CALCITRIOL 0.25 MCG CAP PO SCH (08:48)
[2016-04-22] MEDS: PANTOprazole SOD 40 MG TAB PO SCH (08:48)
[2016-04-22] MEDS: INSULIN ASPART 100 UNITS/ML 3 ML PEN SC SCH ×4 (08:53→20:59)
[2016-04-22] MEDS: HEPARIN SOD 5000 UNIT/0.5 ML CARP SQ SCH ×2 (08:54→20:59)
--- NOTE | 2016-04-22 10:04 | Pharmacy Progress Note ---
Glycemic: Assessment & Plan Date of Service Apr 22, 2016. Assessment & Plan Item Value Date Time Bedside Glucose 99 mg/dl H 04/22/16 0808 Bedside Glucose 206 mg/dl H 04/21/162005 Bedside Glucose 183 mg/dl H 04/21/16 1624 Bedside Glucose 120 mg/dl H 04/21/16 1119 Bedside Glucose 118 mg/dl H 04/21/16 0758 PLAN: Fasting BSGs continue to look good. Will hold off on restarting basal insulin with Lantus at this time. Continue Novolog per ordered CF/CR. * Basal insulin: not needed at this time * Correctional Insulin: Novolog Correction per scale ACHS Goal Range: Low 120 mg/dL - High 160 mg/dL Correction Factor: 25 mg/dL/unit * Prandial insulin: Per carb ratio of 1 unit per 8 grams CHO consumed Pharmacy will continue to monitor patient daily and write orders per [facility] inpatient glycemic control protocol. Thanks. * Please note that the plan above was derived based on current level of insulin resistance and hospital stress. These recommendations are appropriate for inpatient admission only. Plan of care upon discharge will need to be reassessed to avoid potential outpatient hypo/hyperglycemia.
--- NOTE | 2016-04-22 10:11 | Progress Note ---
Progress Note S: Doing well - no issues overnight - more alert and interactive today O: Test 04/22/16 05:00 04/22/16 08:08 04/22/16 09:39 Est Creatinine Clear Calc Drug Dose 35.4 ml/min Bedside Glucose 99 mg/dl (70-90) Vital Signs Past 12 Hours Date Time Temp Pulse Resp B/P Pulse Ox O2 Delivery O2 Flow Rate FiO2 04/22/16 07:32 36.5 74 16 148/82 95 Room Air 04/21/16 22:58 36.6 79 16 125/81 93 Room Air NAD awake and alert no resp distress rrr abd soft - on exam - stent is 50% out - protruding through the urethra - uncertain when this occurred - removed the rest of the way by me during the exam A/p: Sepsis/stones - stent out - from perspective, likely stable for d/c home - will defer to primary team on decision for d/c and abx after d/c
[2016-04-22 10:17] VITALS: O2SAT 95
[2016-04-22 10:23] LABS: BUN/CREATININE RATIO 13.2 (10-20); CALCIUM 8.6 mg/dl (8.5-10.1); CREATININE 1.3 mg/dl (0.60-1.20); POTASSIUM 3.2 mmol/L (3.5-5.1)
[2016-04-22] MEDS ORDERED: POTASSIUM CHLORIDE 10 MEQ TABCR PO STA (10:56)
--- NOTE | 2016-04-22 11:21 | Hospitalist Progress Note ---
Hospitalist Progress Note Date of Service Apr 22, 2016. Subjective Pt evaluation today including: conversation w/ patient, conversation w/ family , physical exam, chart review, lab review, review of studies, review of inpatient medication list PO Intake: meliton po Had ureteral stent removed this AM by Urol, good for dc from Urol standpoint. However pt still very worn out, falling asleep throughout entire exam today. and caregiver report she is definitely "perked up" since the last few days as she was sedated since anesthesia from repeat procedure. Afebrile Constitutional: No fever Respiratory: No shortness of breath Cardiovascular: No chest pain Abdomen: No pain All Other Systems: Reviewed and Negative Objective Vital Signs Date Time Temp Pulse Resp B/P Pulse Ox O2 Delivery O2 Flow Rate FiO2 04/22/16 10:17 95 Room Air 04/22/16 07:32 36.5 74 16 148/82 95 Room Air 04/21/16 22:58 36.6 79 16 125/81 93 Room Air 04/21/16 20:00 Room Air 04/21/16 16:52 Room Air 04/21/16 15:14 36.7 88 18 127/67 90 Room Air Physical Exam General Appearance: WD/WN, no apparent distress (sleeping, drowsy) Eyes: normal inspection, sclerae normal Neck: trachea midline Respiratory/Chest: lungs clear, normal breath sounds, no respiratory distress, no accessory muscle use Cardiovascular: regular rate, rhythm, no edema, no gallop, no murmur Abdomen: normal bowel sounds, non tender, soft (an dobese) Extremities: non-tender, normal inspection, no pedal edema, no calf tenderness Neurologic/Psychiatric: alert (with verbal stimuli then falls back asleep, moving all extremities and following commands) Skin: normal color, warm/dry, no rash Laboratory Results Last 24 Hours Test 04/21/16 11:19 04/21/16 16:24 04/21/16 20:06 04/22/16 05:00 Bedside Glucose 120 mg/dl 183 mg/dl 206 mg/dl Creatinine 1.20 mg/dl Est Creatinine Clear Calc Drug Dose 35.4 ml/min Estimated GFR () 49.4 Estimated GFR (Non- 42.7 Test 04/22/16 08:08 04/22/16 09:39 Bedside Glucose 99 mg/dl Sodium Level 140 mmol/L Potassium Level 3.2 mmol/L Chloride Level 103 mmol/L Carbon Dioxide Level 25 mmol/L Anion Gap 12.0 mmol/L Blood Urea Nitrogen 17 mg/dl Creatinine 1.30 mg/dl Est Creatinine Clear Calc Drug Dose 32.7 ml/min Estimated GFR () 44.9 Estimated GFR (Non- 38.7 BUN/Creatinine Ratio 13.2 Random Glucose 175 mg/dl Calcium Level 8.6 mg/dl Assessment and Plan 81 y.o.F PMHx of MDR Pseudomonas, Hx of ureteral stent was admitted on 2015 to the hospital with altered mentals status. was transferred to ICU in first 24 hours b/c sepsis with signs of tachycardia, hypotensive, worsening leukocytosis - Severe sepsis secondary to UTI, had hypotension but responded to fluids, culture neg S/P ureteral stone removal and stent replacement , 3rd post op day, now with ureteral stent completely removed on 04/22/16 continue antibiotics Imipenem while in hospital my not needs Abx after DC, her urine on Mar 29 grew pseudomonas, no is clean--> awaiting call back from ID today to decide if needs continued abx as outpatient--> probably not now that stent out and no new growth on cultures cultures: no growth in urine or blood -d.c to home is plan as per with 24 hr care but has laid in bed x 3 days--> needs PT/OT reassessment today - Left-sided nephrolithiasis and Right-sided nephroureteral stent with 6 mm distal right ureteral calculus adjacent to the stent, plan to OR by urology on S/P ureteral stone removal and stent replacement by urology then followed by stent removal on 04/22/16 -f/u with Urol Dr. Ellington as outpt -Severe leukocytosis sec to above, improving - Hypernatremia and hyperchloremia: resolved, no further free water needed, Desmopressin 0.2 PO qHS - hx Hypopituitarism: desmopressin and hydrocortisone - hypothyroidism: Levothyroxine - VERO prior to admission: from prerenal from sepsis, resolved Hypokalemia- replace K+ today - Acute Metabolic encephalopathy: suspect 2/2 to UTI, resolved - Type 2 DM, cont Novolog sliding scale - hx of Hypertension: BP trending up,on Norvasc 10mg qAM at home but BPs here still wnl, continue to hold amlodipine GI and DVt px, Heparin d/w pt, and resident care director in detail, Could d/c later today but more likely tomorrow as still sedated and barely moving out of bed x 3 days
[2016-04-22] MEDS ORDERED: NURSING VERBAL MED ORDER ONE (14:30)
[2016-04-22] MEDS ORDERED: POLYETHYLENE (MIRALAX) 17 GM PACK PO ONE (14:45)
[2016-04-22] MEDS ORDERED: DOCUSATE SODIUM 100 MG CAP PO ONE (14:45)
[2016-04-22 15:45] VITALS: BP 157/79; PULSE 73; TEMP 36.7; O2SAT 95
[2016-04-22 16:00] VITALS: O2SAT 95
[2016-04-22] MEDS: DOCUSATE SODIUM 100 MG CAP PO SCH (20:56)
[2016-04-22] MEDS: LATANOPROST 0.005% OP SOLN 2.5 ML BTL OP SCH (20:56)
[2016-04-22] MEDS: DESMOPRESSIN ACETATE 0.1 MG TAB PO SCH (20:56)
[2016-04-22 23:16] VITALS: BP 133/85; PULSE 74; TEMP 36.8; O2SAT 94
[2016-04-23] VITALS (7 sets, daily range): BP systolic 122–178; BP diastolic 78–89; PULSE 70–78; TEMP 36.4–36.6; O2SAT 96–99
[2016-04-23 05:55] LABS: BASO % 0.3 %; BASO ABS # 0.04 K/uL (0-0.2); COMPLETE YES; EOS % 2.3 %; HEMATOCRIT 32.5 % (37-47); IG% 1.6 %; LYMPH % 19.6 %; MEAN CELL VOLUME 90.5 fL (80-100); MEAN CORPUSCULAR HEMOGLOBIN 30.9 pg (25-34); MEAN CORPUSCULAR HGB CONC 34.2 g/dl (32-36); MEAN PLATELET VOLUME 10.6 fL (7.4-10.4); MONO % 6.7 %; NEUT % 69.5 %; PLATELET COUNT 291 K/uL (130-400); RED BLOOD COUNT 3.59 M/uL (4.2-5.4); WHITE BLOOD COUNT 13.27 K/uL (4.8-10.8)
[2016-04-23] MEDS: IMIPENEM-CILASTATIN 250 MG in DEXTROSE 5% 100ML 100 ML IV SCH ×3 (06:03→17:32)
[2016-04-23] MEDS: LEVOTHYROXINE 112 MCG TAB PO SCH (06:03)
[2016-04-23 06:33] LABS: BUN/CREATININE RATIO 13.8 (10-20); CALCIUM 8.3 mg/dl (8.5-10.1); MAGNESIUM 2.2 mg/dl (1.8-2.4); POTASSIUM 3.8 mmol/L (3.5-5.1)
[2016-04-23] MEDS: SODIUM CHLORIDE 0.65% NA SOLN 45 ML (OCEAN) NAE SCH (07:26)
[2016-04-23] MEDS: POTASSIUM CHLORIDE 20 MEQ TABCR PO SCH (07:26)
[2016-04-23] MEDS: POLYETHYLENE (MIRALAX) 17 GM PACK PO SCH (07:26)
[2016-04-23] MEDS: PANTOprazole SOD 40 MG TAB PO SCH (07:27)
[2016-04-23] MEDS: CALCITRIOL 0.25 MCG CAP PO SCH (07:27)
[2016-04-23] MEDS: HYDROCORTISONE 10 MG TAB PO SCH ×2 (07:27→17:05)
[2016-04-23] MEDS: DOCUSATE SODIUM 100 MG CAP PO SCH ×2 (07:27→20:56)
[2016-04-23] MEDS: NYSTATIN POWDER 15GM BTL EXT SCH ×2 (07:27→20:56)
[2016-04-23] MEDS: HEPARIN SOD 5000 UNIT/0.5 ML CARP SQ SCH ×2 (07:30→21:04)
[2016-04-23] MEDS: BOOST GLUCOSE CONTROL PO SCH ×2 (07:37→17:05)
[2016-04-23] MEDS: INSULIN ASPART 100 UNITS/ML 3 ML PEN SC SCH ×4 (08:54→21:52)
--- NOTE | 2016-04-23 11:37 | Progress Note ---
Subjective Date of Service: Apr 23, 2016. Subjective Pt s/p stone removal 04/19 and stent removal 04/22. tolerated well. tolerating imipenem. All cultures negative. wbc overall improving. No fevers. Problem List Medical Problems: (1) Acute kidney injury Status: Acute (2) VERO (acute kidney injury) Status: Acute (3) Altered mental status Status: Acute (4) Altered mental status Status: Acute (5) Altered mental status Status: Acute (6) Altered mental status Status: Acute (7) Altered mental status Status: Acute (8) Dehydration Status: Acute (9) Dysarthria Status: Acute (10) Hydronephrosis Status: Acute (11) Hydronephrosis Status: Acute (12) Kidney stone Status: Acute (13) Leukocytosis Status: Acute (14) Nausea & vomiting Status: Acute (15) Pleural effusion Status: Acute (16) Right ureteral calculus Status: Acute (17) Sepsis Status: Acute (18) Sepsis Status: Acute (19) Urinary tract infection Status: Acute Objective Vital Signs Date Time Temp Pulse Resp B/P Pulse Ox O2 Delivery O2 Flow Rate FiO2 04/23/16 08:00 Room Air 04/23/16 07:03 36.6 73 16 142/89 99 Room Air 04/22/16 23:20 Room Air 04/22/16 23:16 36.8 74 16 133/85 94 Room Air 04/22/16 16:00 95 Room Air 04/22/16 15:45 36.7 73 16 157/79 95 Room Air Laboratory Results Item Value Date Time Blood Culture - Final Complete 04/13/16 1855 Blood NO GROWTH Urine Culture - Final Complete 04/13/16 1830 Urine,Catheterized NO GROWTH - LESS THAN 1,000 COLONIES/ML Blood Culture - Final Complete 04/13/16 1800 Blood NO GROWTH Last 24 Hours Test 04/22/16 11:33 04/22/16 16:13 04/22/16 20:21 04/23/16 05:20 Bedside Glucose 148 mg/dl 149 mg/dl 194 mg/dl White Blood Count 13.27 K/uL Red Blood Count 3.59 M/uL Hemoglobin 11.1 g/dL Hematocrit 32.5 % Mean Corpuscular Volume 90.5 fL Mean Corpuscular Hemoglobin 30.9 pg Mean Corpuscular Hemoglobin Concent 34.2 g/dl Platelet Count 291 K/uL Mean Platelet Volume 10.6 fL Neutrophils (%) (Auto) 69.5 % Lymphocytes (%) (Auto) 19.6 % Monocytes (%) (Auto) 6.7 % Eosinophils (%) (Auto) 2.3 % Basophils (%) (Auto) 0.3 % Neutrophils # (Auto) 9.23 K/uL Lymphocytes # (Auto) 2.60 K/uL Monocytes # (Auto) 0.89 K/uL Eosinophils # (Auto) 0.30 K/uL Basophils # (Auto) 0.04 K/uL RDW Standard Deviation 53.6 fL RDW Coefficient of Variation 16.2 % Immature Granulocyte % (Auto) 1.6 % Immature Granulocyte # (Auto) 0.21 K/uL Sodium Level 138 mmol/L Potassium Level 3.8 mmol/L Chloride Level 104 mmol/L Carbon Dioxide Level 24 mmol/L Anion Gap 10.0 mmol/L Blood Urea Nitrogen 14 mg/dl Creatinine 1.00 mg/dl Est Creatinine Clear Calc Drug Dose 42.5 ml/min Estimated GFR () 61.6 Estimated GFR (Non- 53.2 BUN/Creatinine Ratio 13.8 Random Glucose 78 mg/dl Calcium Level 8.3 mg/dl Magnesium Level 2.2 mg/dl Test 04/23/16 07:19 Bedside Glucose 100 mg/dl Assessment and Plan (1) UTI (urinary tract infection) Assessment & Plan: still with increased wbc but improving, had stent removal yesterday, likely reason for slight increase. stone and stent now out, would give 10 more days Imipenem post stent removal. no contraindication to d/c from ID standpoint. Patient with leukocytosis, altered mental status, and recent UTI with concern for infected ureteral stent. The patient is anticipating stent replacement and renal stone removal potentially this week but will await urology opinion regarding this. She is improving slowly on IV Primaxin, and therefore would continue this medication until decision is made regarding stone/stent. Would prefer that the stent be removed and replaced if necessary with concern for stent infection. We will continue to follow. case reviewed and agree with above assessment Continued [facility] stay due to: multiple IV medications needed, other (needs procedure) Discharge planning: uncertain
[2016-04-23] MEDS ORDERED: CLC100 PO (13:05)
[2016-04-23] MEDS ORDERED: CHOL1000 PO (13:05)
[2016-04-23] MEDS ORDERED: IMIP1INJ IV (13:05)
[2016-04-23] MEDS ORDERED: MRLP17 PO (13:05)
[2016-04-23] MEDS ORDERED: NRV5 PO (13:05)
--- NOTE | 2016-04-23 19:43 | Hospitalist Progress Note ---
Hospitalist Progress Note Date of Service Apr 23, 2016. Subjective Pt evaluation today including: conversation w/ patient, conversation w/ family , physical exam, chart review, lab review, conversation w/ systems consultant (ID), review of inpatient medication list PO Intake: meliton po Much improved today, awake and speaking, eating, sitting in chair. Ready for d/ c to home but awaiting arrangement of home IV abx Constitutional: No fever Respiratory: No shortness of breath Cardiovascular: No chest pain Abdomen: No pain Skin: No rash All Other Systems: Reviewed and Negative Objective Vital Signs Date Time Temp Pulse Resp B/P Pulse Ox O2 Delivery O2 Flow Rate FiO2 04/23/16 17:27 74 129/81 04/23/16 16:52 73 18 122/80 04/23/16 16:37 70 20 138/78 04/23/16 16:17 73 22 178/78 99 Room Air 0.0 04/23/16 16:00 Room Air 04/23/16 15:39 36.4 78 16 124/82 96 Room Air 04/23/16 08:00 Room Air 04/23/16 07:03 36.6 73 16 142/89 99 Room Air 04/22/16 23:20 Room Air 04/22/16 23:16 36.8 74 16 133/85 94 Room Air Physical Exam General Appearance: WD/WN, no apparent distress Eyes: normal inspection, sclerae normal Neck: trachea midline Respiratory/Chest: lungs clear, normal breath sounds, no respiratory distress, no accessory muscle use Cardiovascular: regular rate, rhythm, no edema, no gallop, no murmur Abdomen: normal bowel sounds, non tender, soft Extremities: non-tender, normal inspection, no pedal edema, no calf tenderness Neurologic/Psychiatric: alert, oriented x 3 Skin: normal color, warm/dry, no rash Laboratory Results Last 24 Hours Test 04/22/16 20:21 04/23/16 05:20 04/23/16 07:19 04/23/16 11:11 Bedside Glucose 194 mg/dl 100 mg/dl 142 mg/dl White Blood Count 13.27 K/uL Red Blood Count 3.59 M/uL Hemoglobin 11.1 g/dL Hematocrit 32.5 % Mean Corpuscular Volume 90.5 fL Mean Corpuscular Hemoglobin 30.9 pg Mean Corpuscular Hemoglobin Concent 34.2 g/dl Platelet Count 291 K/uL Mean Platelet Volume 10.6 fL Neutrophils (%) (Auto) 69.5 % Lymphocytes (%) (Auto) 19.6 % Monocytes (%) (Auto) 6.7 % Eosinophils (%) (Auto) 2.3 % Basophils (%) (Auto) 0.3 % Neutrophils # (Auto) 9.23 K/uL Lymphocytes # (Auto) 2.60 K/uL Monocytes # (Auto) 0.89 K/uL Eosinophils # (Auto) 0.30 K/uL Basophils # (Auto) 0.04 K/uL RDW Standard Deviation 53.6 fL RDW Coefficient of Variation 16.2 % Immature Granulocyte % (Auto) 1.6 % Immature Granulocyte # (Auto) 0.21 K/uL Sodium Level 138 mmol/L Potassium Level 3.8 mmol/L Chloride Level 104 mmol/L Carbon Dioxide Level 24 mmol/L Anion Gap 10.0 mmol/L Blood Urea Nitrogen 14 mg/dl Creatinine 1.00 mg/dl Est Creatinine Clear Calc Drug Dose 42.5 ml/min Estimated GFR () 61.6 Estimated GFR (Non- 53.2 BUN/Creatinine Ratio 13.8 Random Glucose 78 mg/dl Calcium Level 8.3 mg/dl Magnesium Level 2.2 mg/dl Test 04/23/16 16:36 Bedside Glucose 113 mg/dl Assessment and Plan 81 y.o.F PMHx of MDR Pseudomonas, Hx of ureteral stent was admitted on 2015 to the hospital with altered mental status. was transferred to ICU in first 24 hours b/c sepsis with signs of tachycardia, hypotensive, worsening leukocytosis - Severe sepsis secondary to UTI, had hypotension but responded to fluids, culture neg--> all resolved S/P ureteral stone removal and stent replacement , now with ureteral stent completely removed on 04/22/16 continue antibiotics Imipenem for 10 days total after stent removal as per ID recommendations; her urine on Mar 29 grew pseudomonas, now is clean cultures: no growth in urine or blood -d/c to home tomorrow after home IV infusion arrangements made -needs home PT/OT/RN - Left-sided nephrolithiasis and Right-sided nephroureteral stent with 6 mm distal right ureteral calculus adjacent to the stent, went to OR by urology S/P ureteral stone removal and stent replacement by urology then followed by stent removal on 04/22/16 -f/u with Urol Dr. Ellington as outpt -Severe leukocytosis sec to above, improving and slight increase today to 13 from 11k - Hypernatremia and hyperchloremia: resolved, no further free water needed, Desmopressin 0.2 PO qHS - hx Hypopituitarism: desmopressin and hydrocortisone - hypothyroidism: Levothyroxine -has f/u appt with Endocrine this week as an outpat - VERO prior to admission: from prerenal from sepsis, resolved Hypokalemia- replace K+ as needed - Acute Metabolic encephalopathy: suspect 2/2 to UTI, resolved - Type 2 DM, cont Novolog sliding scale - hx of Hypertension: BP trending up,on Norvasc 10mg qAM at home, will restart at 5mg daily GI and DVt px, Heparin d/w pt, and direct care worker in detail along with pt
[2016-04-23] MEDS: LATANOPROST 0.005% OP SOLN 2.5 ML BTL OP SCH (21:51)
[2016-04-23] MEDS: DESMOPRESSIN ACETATE 0.1 MG TAB PO SCH (21:52)
[2016-04-24] VITALS: BP 130/77; PULSE 87; TEMP 36.7; O2SAT 95
[2016-04-24 00:19] VITALS: O2SAT 99
[2016-04-24] MEDS: LEVOTHYROXINE 112 MCG TAB PO SCH (06:29)
[2016-04-24] MEDS ORDERED: AMLODIPINE BESYLATE 5 MG TAB PO SCH (08:00)
[2016-04-24 08:21] LABS: BASO % 0.7 %; BASO ABS # 0.08 K/uL (0-0.2); COMPLETE YES; EOS % 1.9 %; HEMATOCRIT 34.3 % (37-47); IG% 2.2 %; LYMPH % 21.5 %; LYMPH ABS # 2.65 K/uL (1.2-3.4); MEAN CELL VOLUME 89.6 fL (80-100); MEAN CORPUSCULAR HEMOGLOBIN 30.5 pg (25-34); MEAN CORPUSCULAR HGB CONC 34.1 g/dl (32-36); MEAN PLATELET VOLUME 10.3 fL (7.4-10.4); MONO % 7.6 %; NEUT % 66.1 %; PLATELET COUNT 264 K/uL (130-400); RED BLOOD COUNT 3.83 M/uL (4.2-5.4)
[2016-04-24] MEDS: SODIUM CHLORIDE 0.65% NA SOLN 45 ML (OCEAN) NAE SCH (08:32)
[2016-04-24] MEDS: BOOST GLUCOSE CONTROL PO SCH (08:33)
[2016-04-24] MEDS: POLYETHYLENE (MIRALAX) 17 GM PACK PO SCH (08:34)
[2016-04-24] MEDS: PANTOprazole SOD 40 MG TAB PO SCH (08:34)
[2016-04-24] MEDS: NYSTATIN POWDER 15GM BTL EXT SCH (08:34)
[2016-04-24] MEDS: POTASSIUM CHLORIDE 20 MEQ TABCR PO SCH (08:35)
[2016-04-24] MEDS: DOCUSATE SODIUM 100 MG CAP PO SCH (08:35)
[2016-04-24] MEDS: HYDROCORTISONE 10 MG TAB PO SCH (08:35)
[2016-04-24] MEDS: CALCITRIOL 0.25 MCG CAP PO SCH (08:35)
[2016-04-24 08:45] LABS: BUN/CREATININE RATIO 12.3 (10-20); CALCIUM 8.7 mg/dl (8.5-10.1); CREATININE 1.1 mg/dl (0.60-1.20); MAGNESIUM 2.1 mg/dl (1.8-2.4); POTASSIUM 3.9 mmol/L (3.5-5.1)
[2016-04-24 08:55] VITALS: BP 136/80; PULSE 75; TEMP 36.6
[2016-04-24] MEDS: INSULIN ASPART 100 UNITS/ML 3 ML PEN SC SCH ×2 (08:56→12:55)
[2016-04-24] MEDS: HEPARIN SOD 5000 UNIT/0.5 ML CARP SQ SCH (09:08)
--- NOTE | 2016-04-24 09:35 | Discharge Instructions ---
Discharge Instructions Admission Reason for Admission: Sepsis, Uti Discharge Discharge Diagnosis / Problem: Sepsis , UTI, kidney stone Discharge Goals Goal(s): Improve disease control, Therapeutic intervention Activity Recommendations Activity Limitations: resume your previous activity . Instructions / Follow-Up Instructions / Follow-Up You were admitted with a kidney stone, and urinary tract infection. Your kidney stone was removed and your stent was removed. You will need to remain on IV antibiotics for 9 more days. You should keep your follow up appointment with Dr. Booth for this Saturday. You should also follow up with Dr. Bojorquez or Dr. Woods in 1-2 weeks. Please also follow up with your primary care doctor within 1-2 weeks. Current Hospital Diet Patient's current hospital diet: Diabetes Type 2 Diet Discharge Diet Recommended Diet: Diabetes Type 2 Diet Procedures Procedures Performed: Cystoscopy, Right Retrograde Pyelogram, Right Semi rigid Ureteroscopy, Laser Lithotripsy of Right Ureteral stone; Ureteral Stent Exchange Pending Studies Studies pending at discharge: yes List of pending studies: Kidney stone analysis Laboratory Results Hemoglobin A1c Test 04/14/16 05:22 Range/Units Estimated Average Glucose 143 mg/dl Hemoglobin A1c 6.6 H 4.5-5.6 % Medical Emergencies . Who to Call and When: Medical Emergencies: If at any time you feel your situation is an emergency, please call 911 immediately. . Non-Emergent Contact Non-Emergency issues call your: Primary Care Provider Call Non-Emergent contact if: temperature is above 101, your pain is not controlled, your pain is worsening, your pain is unusual for you, your pain is concerning you, you have any medication questions . . "Provider Documentation" section prepared by Dania Nolan. VTE Core Measure Inpt VTE Proph given/why not?: Unfractionated heparin SQ
[2016-04-24 09:59] VITALS: BP 136/80; PULSE 75; TEMP 36.6; O2SAT 99
[2016-04-24] MEDS ORDERED: IMIPENEM-CILASTATIN 250 MG in DEXTROSE 5% 100ML 100 ML IV SCH (11:00)
--- NOTE | 2016-04-25 22:51 | Discharge Summary ---
Discharge Summary Admission Date: Apr 13, 2016 at 11:01 Discharge Date: Apr 24, 2016 Discharge Disposition: Home with services Principal Diagnosis: Sepsis, Complicated UTI Problems/Secondary Diagnoses: H/o MDR Pseudomonas Hx of ureteral stent Severe sepsis with septic shock Complicated UTI Ureterolithiasis Leukocytosis Hypernatremia Hyperchloremia Diabetes insipidus Hypopituitarism Hypothyroidism VERO Hypokalemia Acute Metabolic encephalopathy Type 2 DM Hypertension Cholelithiasis Constipation Immunizations: Have You Had Influenza Vaccine: No Influenza Vaccine Date: Feb 04, 2010 History of Tetanus Vaccine?: No History of Pneumococcal: YES- [place] 2008 History of Hepatitis B Vaccine: No Procedures: Cystoscopy, Right Retrograde Pyelogram, Right Semi rigid Ureteroscopy,Laser Lithotripsy of Right Ureteral stone; Ureteral Stent Exchange CT HEAD WITHOUT CONTRAST (CT) CLINICAL HISTORY: Acute change in mental status. Fatigue. COMPARISON STUDY: 04/09/2016 TECHNIQUE: Axial CT of the brain is performed from the vertex to the skull base. IV contrast was not administered for this examination. CT DOSE: 537.48 mGy.cm FINDINGS: No intra or extra-axial mass lesions are visualized. There is no CT evidence of acute cortical infarction. There is no evidence of midline shift. There is no acute hemorrhage. No calvarial fractures are visualized. There are postsurgical changes of bifrontal craniotomies. There are moderate white matter hypodensities likely on a small vessel basis. There is no evidence of pathologic ventricular dilatation. There is no evidence of acute sinusitis IMPRESSION: Postsurgical changes. No acute intracranial findings. CHEST ONE VIEW PORTABLE CLINICAL HISTORY: Altered mental status. COMPARISON STUDY: Chest radiograph April 06, 2016. FINDINGS: The right PICC has been removed. There is no pneumothorax or pleural effusion. Mild cardiomegaly is unchanged. A right ureteral stent is partially imaged. There is no evidence of pulmonary edema. No consolidation is identified. Hazy left basilar opacity is unchanged and likely due to epicardial fat pad. IMPRESSION: No acute cardiopulmonary findings CT SCAN OF THE ABDOMEN AND PELVIS WITHOUT CONTRAST CLINICAL HISTORY: Left upper quadrant abdominal pain and sepsis COMPARISON STUDY: 04/06/2016 TECHNIQUE: CT scan of the abdomen and pelvis was performed from the lung bases to the proximal femurs. Images are reviewed in the axial, sagittal, and coronal planes. IV contrast was not administered for this examination. CT DOSE: 1066.36 mGy.cm FINDINGS: Lower chest: There are bibasal residual opacities possibly atelectatic. There are coronary artery calcifications. Liver: The unenhanced liver is normal in size, contour, and attenuation. There is no intrahepatic biliary ductal dilatation. Gallbladder: Cholelithiasis Spleen: Normal in size and attenuation. Pancreas: Unremarkable. Adrenal glands: Unremarkable. Kidneys: There is a 4 mm lower pole left renal calculus.. There is a right-sided nephroureteral stent which appears unchanged in position. There is a 1 cm upper pole left renal cyst. There are left renal parapelvic cysts. There is a 12 mm mid pole left renal cyst. There is a 6 mm distal right ureteral calculus along the course of the stent. Bowel: There are no transition zones indicate bowel obstruction. There is colonic diverticulosis. There is mild fecal retention. There are scattered colonic diverticula. There are no acute peridiverticular inflammatory changes. The appendix appears normal. Peritoneum: There is no intraperitoneal free air or abdominal ascites. Vasculature: The abdominal aorta is normal in course and caliber. Adenopathy: None. Pelvic viscera: The bladder, and pelvic viscera are unremarkable. Skeletal structures: There are moderate degenerative changes present within the lumbar spine. IMPRESSION: 1. Left-sided nephrolithiasis 2. Right-sided nephroureteral stent 3. 6 mm distal right ureteral calculus adjacent to the stent 4. No evidence of bowel obstruction. No evidence of free air 5. Normal appendix 6. Diverticulosis. No evidence of acute peridiverticular inflammatory change 7. Cholelithiasis 8. Fecal retention RENAL ULTRASOUND CLINICAL HISTORY: Urosepsis. COMPARISON STUDY: CT of the abdomen and pelvis performed earlier today and renal ultrasound March 29, 2016. TECHNIQUE: Sonography of the kidneys and the urinary bladder was performed. FINDINGS: This exam is significantly compromised by suboptimal penetration. The right kidney measures 10.1 x 5.8 x 5 cm and the left measures 10.5 x 5.8 x 4.6 cm. A right ureteral stent is visualized. Neither ureteral jet was identified. There is moderate bilateral renal cortical thinning. Anechoic foci within each renal sinus could reflect parapelvic cysts given findings on earlier exams. There is no convincing evidence for left hydronephrosis. Mild right collecting system dilatation would be difficult to exclude. IMPRESSION: 1. Right ureteral stent in place. On this exam, it is difficult to differentiate parapelvic cysts from mild hydronephrosis. Mild right collecting system dilatation is favored. No convincing left hydronephrosis. 2. Moderate renal cortical thinning. CHEST ONE VIEW PORTABLE HISTORY: line placement COMPARISON: Chest 04/13/2016. FINDINGS: Interval placement of right subclavian central venous catheter which terminates in the distal SVC. No pneumothorax. The heart remains mildly enlarged. There are low lung volumes. No pleural effusions. Patchy densities within the left lung base persist. IMPRESSION: 1. Right subclavian central venous catheter terminates in the distal SVC. No pneumothorax. 2. Patchy density within the left lung base persist. This likely represent atelectasis. Consultations: Urology Infectious Disease Medication Reconciliation New Medications: Imipenem-Cilastatin (Imipenem/Cilastatin) 1 Inj Inj 250 MG IV Q6 for 9 Days, #36 DOSE Docusate Sodium (Docusate Sodium) 100 Mg Cap 100 MG PO BID for 30 Days, CAP Polyethylene (Miralax) 17 Gm Pow 17 GM PO QAM PRN for Constipation for 30 Days Changed Medications: Amlodipine Besylate (Amlodipine Besylate) 5 Mg Tab 5 MG PO QAM for 30 Days, #30 TAB (Changed from: 10 MG) Cholecalciferol (Vitamin D3) 1,000 Unit Tab 1000 UNITS PO DAILY for 30 Days, TAB 3 Refills (Changed from: 5000 UNITS) Continued Medications: Acetaminophen (Tylenol) 325 Mg Tab 650 MG PO Q4H PRN for MILD PAIN # 1-3, TAB Alendronate Sodium (Fosamax) 70 Mg Tab 70 MG PO WK, TAB Ammonium Lactate (Lac-Hydrin) Lotn 1 APPLN EXT DIRECTED Calcitriol (Rocaltrol Cap) 0.25 Mcg Cap 0.5 MCG PO DAILY, CAP Calcium Carbonate-Cholecalcife (Caltrate 600+D) 1 Tab Tab 1 TAB PO BID Desmopressin Acetate (Desmopressin Acetate) 0.1 Mg Tab 0.2 MG PO HS for 30 Days, #60 TAB Hydrocortisone (Cortef) 10 Mg Tab 10 MG PO DAILY@1400 for 30 Days, TAB Hydrocortisone (Cortef) 10 Mg Tab 15 MG PO QAM for 30 Days, #45 TAB Insulin Glargine (Lantus Solostar) 100 Unit/Ml Inj 6 UNIT SC HS, PEN Latanoprost (Xalatan 0.005% Oph Leslie) 0.005 % Leslie 1 DROPS OP HS for 90 Days, #7.5 ML 3 Refills Levothyroxine Sodium (Synthroid) 112 Mcg Tab 112 MCG PO DAILYBB for 30 Days, TAB Menthol (Topical Analgesic) (Biofreeze) Unknown Strength Gel 1 APPLN EXT DIRECTED Nystatin (Mycostatin) Powd 1 APPLN TOP BID for 7 Days, #1 BTL Omeprazole (Prilosec) 20 Mg Cap 20 MG PO DAILY, CAP Pediatric Multiple Vitamin W/ (Chewables Multivitamin Pederson) 1 Chw Chw 1 TAB PO DAILY Polyethylene Glycol-Propylene (Systane Ultra) 1 Leslie Leslie 1 DROPS OP q4-6hours, #15 ML 1 Refill Potassium Chloride (Klor-Con M20) 20 Meq Tabcr 20 MEQ PO DAILY for 30 Days, #30 TABS Probiotic Product (Align) 4 Mg Cap 1 CAP PO DAILY Sodium Chloride ([place] Nasal) [place] 1 SPRAY OSVALDO DIRECTED Discontinued Medications: Nitrofurantoin Macrocrystals (Macrodantin) 100 Mg Cap 100 MG PO Q12, CAP Solifenacin (Vesicare) 10 Mg Tab 10 MG PO DAILY, TAB Referrals At Discharge Follow up Referrals: Family Practice Referral - Within 1-2 Weeks with Dank Carrillo M.D. Infectious Disease - 04/27/16 with Zhou Booth MD Urologist Referral - Within 1-2 Weeks with Jameel Bojorquez MD, Urology Discharge Exam Review of Systems: Constitutional: No fever Eyes: + problem reported (legally blind) ENT: No problem reported Respiratory: No problem reported, No shortness of breath Cardiovascular: No chest pain Abdomen: No constipation, No pain Musculoskeletal: No problem reported Genitourinary - Female: + urinary incontinence Neurologic: No problem reported Psychiatric: No problem reported Endocrine: No problem reported Hematologic / Lymphatic: No problem reported Integumentary: No problem reported Hospital Course 81 y.o.F PMHx of MDR Pseudomonas, Hx of ureteral stent was admitted on 2015 to the hospital with altered mental status. was transferred to ICU in first 24 hours b/c sepsis with signs of tachycardia, hypotensive, worsening leukocytosis - Severe sepsis secondary to UTI, had hypotension but responded to fluids, culture neg--> all resolved S/P ureteral stone removal and stent replacement , now with ureteral stent completely removed on 04/22/16 continue antibiotics Imipenem for 10 days total after stent removal as per ID recommendations; her urine on Mar 29 grew pseudomonas, now is clean cultures: no growth in urine or blood -d/c to home today as per pt and family wishes after home IV infusion arrangements made -needs home PT/OT/RN and has 24 hr care -has f/u with ID Dr. Booth in 3 days - Left-sided nephrolithiasis and Right-sided nephroureteral stent with 6 mm distal right ureteral calculus adjacent to the stent, went to OR by urology S/P ureteral stone removal and stent replacement by urology then followed by stent removal on 04/22/16 -f/u with Urol Dr. Ellington as outpt -Severe leukocytosis sec to above, improving and was 12k on day of discharge down from 32k - Hypernatremia and hyperchloremia: resolved, no further free water needed, Desmopressin 0.2 PO qHS - hx Hypopituitarism: desmopressin and hydrocortisone - hypothyroidism: Levothyroxine -has f/u appt with Endocrine this week as an outpat - VERO prior to admission: from prerenal from sepsis, resolved Hypokalemia- replace K+ as needed - Acute Metabolic encephalopathy: suspect 2/2 to UTI, resolved - Type 2 DM, cont Novolog sliding scale - hx of Hypertension: BP trending up,on Norvasc 10mg qAM at home, will restart at 5mg daily GI and DVt px, 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 Discharge Instructions Please refer to the electronic Patient Visit Report (Discharge Instructions) for additional information. Follow-Up You should keep your follow up appointment with Dr. Booth for this Saturday. You should also follow up with Dr. Bojorquez or Dr. Woods in 1-2 weeks. Please also follow up with your primary care doctor within 1-2 weeks. Additional Copies To Zhou Booth MD; Dank Carrillo M.D.; Jameel Bojorquez MD, Urology
[2016-08-07] MEDS ORDERED: MENT4GEL TOP (04:02)
[2016-08-07] MEDS ORDERED: POLY1SOL6 OP (04:29)
[2016-08-07] MEDS ORDERED: CALC-354 PO (08:20)
[2016-08-07] MEDS ORDERED: MISC4CAP PO (08:20)
[2016-08-07] MEDS ORDERED: PEDI-68 PO (08:20)
[2016-08-07] MEDS ORDERED: OMEP20CA9 PO (11:18)
[2016-08-07] MEDS ORDERED: CHOL1TAB2 PO (13:21)
[2016-09-04] MEDS ORDERED: MULT-506 PO (13:54)
[2016-09-04] MEDS ORDERED: DESM1TAB16 PO (13:56)
[2016-10-08] MEDS ORDERED: HYDR10TA52 PO ×2 (16:32)
[2016-10-18] MEDS ORDERED: MTR500 PO (09:51)
[2016-10-18] MEDS ORDERED: LVQ500 PO (09:51)
[2017-03-05] MEDS ORDERED: SYN100 PO (11:26)
== END 2016-04-24 14:25 | disposition home health service (06) | DRG 853 ==
LOC: ENRESERVTM → ENRESERVDT → EDBD 06:58 → EDSEX 06:58 → C.ED 06:59 → C.2T 11:01 → C.MSICU 20:22 → C.2T 04-15 16:08 → C.MS4W 04-20 13:08
PROVIDERS: ADMIT Internal Medicine; ATTEND Family Medicine
PROC: BT1DYZZ Fluoroscopy of Right Kidney, Ureter and Bladder using Other Contrast (ICD-10-PCS; principal; 2016-04-19 13:00)
PROC: 0T29X0Z Change Drainage Device in Ureter, External Approach (ICD-10-PCS; principal; 2016-04-19 13:00)
PROC: 0TF68ZZ Fragmentation in Right Ureter, Via Natural or Artificial Opening Endoscopic (ICD-10-PCS; principal; 2016-04-19 13:00)
PROC: 0TC68ZZ Extirpation of Matter from Right Ureter, Via Natural or Artificial Opening Endoscopic (ICD-10-PCS; principal; 2016-04-19 13:00)
PROC: 02HV33Z Insertion of Infusion Device into Superior Vena Cava, Percutaneous Approach (ICD-10-PCS; 2016-04-19 13:00)
DX: A41.52 Sepsis due to Pseudomonas (principal); N17.9 Acute kidney failure, unspecified; G93.41 Metabolic encephalopathy; N39.0 Urinary tract infection, site not specified; R65.21 Severe sepsis with septic shock; E23.0 Hypopituitarism; N20.2 Calculus of kidney with calculus of ureter; R53.83 Other fatigue; E11.9 Type 2 diabetes mellitus without complications; I25.2 Old myocardial infarction; H40.9 Unspecified glaucoma; K21.9 Gastro-esophageal reflux disease without esophagitis; F32.9 Major depressive disorder, single episode, unspecified; E78.00 Pure hypercholesterolemia, unspecified; Z88.2 Allergy status to sulfonamides; E87.6 Hypokalemia; I10 Essential (primary) hypertension; K59.00 Constipation, unspecified; K57.90 Diverticulosis of intestine, part unspecified, without perforation or abscess without bleeding; E86.0 Dehydration; E03.9 Hypothyroidism, unspecified; Z86.73 Personal history of transient ischemic attack (TIA), and cerebral infarction without residual deficits

== ENCOUNTER → 2016-05-02 | Outpatient (CLI) | payer OTHER, BC ==
[~2016-05-02] MED LIST changes: +ACET-1311 PO; +ASPI81TA28 PO; +CALC-354 PO; +CALC1CAP36 PO; +CEFU1TAB35 PO; +CHOL1TAB2 PO; +CLC100 PO; +DESM1TAB16 PO; +DOCU100C31 PO; -FLUO0.0566 TOP; +FSM70 PO; +GLIM1TAB2 PO; +HYDR10TA52 PO; +HYG/25 PO; +IMIP1INJ IV; +INSU100I23 SC; +LACT12LO28 TOP; +LEVO125T4 PO; +LVQ500 PO; +LVQ750 PO; +MENT4GEL TOP; +MISC4CAP PO; +MRLP17 PO; +MTR500 PO; +MULT-506 PO; +NITR100C6 PO; -NITR1CAP32 PO; +NYST1POW7 TOP; +OMEP20CA9 PO; +PEDI-68 PO; +POLY1SOL6 OP; +POTA20TA13 PO; +SALI0.6510; +SODI1.1C4 TOP; -SOLI10TA2 PO; +XLTOPS OPB
--- NOTE | 2016-05-02 15:21 | DIAGNOSTIC IMAGING REPORT ---
PA CHEST WITH LEFT-SIDED RIB SERIES CLINICAL HISTORY: Left-sided chest wall pain. FINDINGS: A PA chest radiograph with 4 additional views from a left-sided rib series is compared to study dated 04/13/2016. The PA view is degraded by patient rotation as well as by the patient's head securing the left apex. A right subclavian central venous catheter has been removed from previous. The cardiomediastinal silhouette is unremarkable. There is atherosclerotic calcification of the thoracic aorta. Chronic interstitial thickening and bibasilar atelectasis is identified. No airspace consolidation, large pleural effusion, or pneumothorax is seen. The skeletal structures are osteopenic. There is no radiographic evidence of acute/distracted left-sided rib fracture seen on the rib series as clinically queried. The remainder of the bony thorax is grossly intact. Degenerative change is noted in the thoracic spine. A left renal calculus is incidentally noted. IMPRESSION: 1. No active disease in the chest. 2. There is no radiographic evidence of acute/distracted left-sided rib fracture as clinically queried. Electronically signed by: Awais Miller M.D. 05/02/2016 3:19 PM Dictated Date/Time: 05/02/2016 3:16 PM
== END | disposition home or self-care (01) ==
LOC: C.RADPV 14:34
PROVIDERS: ATTEND Family Medicine
DX: R07.81 Pleurodynia (principal)

== ENCOUNTER → 2016-05-08 | Outpatient (CLI) | payer OTHER, BC ==
--- NOTE | 2016-05-08 14:00 | DIAGNOSTIC IMAGING REPORT ---
KUB CLINICAL HISTORY: N20.0 Nephrolithiasis COMPARISON STUDY: 03/29/2016 FINDINGS: There are moderately advanced degenerative changes present within the lumbar spine. There is mild fecal retention. The right-sided double pigtail nephroureteral stent has been removed. The renal shadows are partially obscured. There are lower pole left renal calculi versus overlying enteric contents. There are multiple nonspecific pelvic basin calcifications likely representing phleboliths. IMPRESSION: 1. Interval removal of the right-sided nephroureteral stent 2. Lower pole left renal calculi versus overlying enteric contents 3. Fecal retention Electronically signed by: Lico Cabral M.D. 05/08/2016 1:59 PM Dictated Date/Time: 05/08/2016 1:55 PM
== END | disposition home or self-care (01) ==
LOC: C.RAD 13:34
PROVIDERS: ATTEND Urology
DX: N20.0 Calculus of kidney (principal); K59.00 Constipation, unspecified

== ENCOUNTER → 2016-05-29 | Outpatient (CLI) | payer OTHER, BC ==
[2016-05-29 17:34] LABS: URINE APPEARANCE CLEAR (CLEAR); URINE BILIRUBIN NEG (NEG); URINE COLOR YELLOW; URINE NITRITE NEG (NEG); URINE PH 6.5 (4.5-7.5); URINE SPECIFIC GRAVITY 1.012 (1.000-1.030); UROBILINOGEN NEG (NEG)
[2016-05-29 17:57] LABS: MANUAL MICROSCOPIC REQUIRED? NO; REVIEW REQ? NO
== END | disposition home or self-care (01) ==
LOC: C.LABPVFM 08:35
PROVIDERS: ATTEND Family Medicine
DX: R35.0 Frequency of micturition (principal)

== ENCOUNTER → 2016-06-13 | Outpatient (CLI) | payer OTHER, BC | END | disposition home or self-care (01) | LOC: C.LABPVFM 12:10 | PROVIDERS: ATTEND Family Medicine | DX: E87.6 Hypokalemia (principal); R35.0 Frequency of micturition; R82.90 Unspecified abnormal findings in urine ==

== ENCOUNTER → 2016-07-02 | Outpatient (CLI) | payer OTHER, BC | END | disposition home or self-care (01) | LOC: C.LAB1850 15:02 | PROVIDERS: ATTEND Internal Medicine Endocrinology, Diabetes & Metabolism | DX: E23.0 Hypopituitarism (principal) ==

== ENCOUNTER → 2016-07-26 | Outpatient (CLI) | payer OTHER, BC ==
[~2016-07-26] MED LIST changes: +ATV5X PO; +DONE1TAB11 PO; +FLUO0.0566 TOP; -LEVO125T4 PO; +LEVO125T5 PO; +METH-1305 PO; +MIRA1TAB3 PO; +MUPI1CRE TOP; +POLY335019 PO; +SALI0.6510 NAE; +SYN100 PO
== END | disposition home or self-care (01) ==
LOC: C.LABPVFM 09:39
PROVIDERS: ATTEND Nurse Practitioner Family
DX: R35.0 Frequency of micturition (principal)

== ENCOUNTER 2016-08-07 15:10 | Emergency (ER) | payer OTHER, BC ==
[~2016-08-07] VITALS: Ht 157.5 cm; Wt 83.0 kg
[~2016-08-07 15:10] MED LIST changes: -ACET-1311 PO; -ASPI81TA28 PO; -ATV5X PO; -CALC1CAP36 PO; -CEFU1TAB35 PO; -DESM1TAB16 PO; -DOCU100C31 PO; -DONE1TAB11 PO; -FLUO0.0566 TOP; -FSM70 PO; -GLIM1TAB2 PO; -HYDR10TA52 PO; -HYG/25 PO; -INSU100I23 SC; -LACT12LO28 TOP; -LEVO125T5 PO; -LVQ500 PO; -LVQ750 PO; -METH-1305 PO; -MIRA1TAB3 PO; -MTR500 PO; -MULT-506 PO; -MUPI1CRE TOP; -NITR100C6 PO; -NYST1POW7 TOP; -POLY335019 PO; -POTA20TA13 PO; -SALI0.6510; -SALI0.6510 NAE; -SODI1.1C4 TOP; -SYN100 PO; -XLTOPS OPB
[2016-08-07 15:17] VITALS: TEMP 36.4; Ht 157.5 cm; Wt 83.0 kg
--- NOTE | 2016-08-07 15:48 | EMERGENCY ROOM VISIT NOTE ---
History Report prepared by Eliezer: Leonard Cole Under the Supervision of: Dr. Silvestre Pena M.D. First contact with patient: 15:36 Chief Complaint: OTHER COMPLAINT Stated Complaint: HALLUCINATIONS,DISORIENTED,TIRED,IRRITABLE History of Present Illness The patient is an 81 year old female who presents to the Emergency Room with complaints of an episode of chest pain that occurred last night. The patient was treated here last week for a urinary tract infection, and was put on nitrofurantoin. The patient, per the patient's , had an episode of chest pain and shortness of breath last night, and the called her primary care doctor, who said to stop the antibiotic. The episode lasted around 30 minutes. That was her seventh day on the antibiotic. The patient's chest pain and shortness of breath are gone currently. Prior to arrival today, the patient started hearing some voices. She has had hallucinations in the past when having infections. She currently denies any headaches or abdominal pain. Nothing is bothering her currently. The patient has not had her urine checked since being put on the antibiotic. She has not had any recent falls and has not hit her head. The patient has had multiple CT scans and MRI's in March of 2016 for similar symptoms without any acute findings. Source of History: patient, spouse/significant other Onset: Last night Position: chest (pain) Timing: other (episode) Associated Symptoms: + SOB (episode last night), No abdominal pain, No headache Note: Associated symptoms: Hearing voices prior to arrival today. Review of Systems See HPI for pertinent positives & negatives. A total of 10 systems reviewed and were otherwise negative. Past Medical & Surgical Medical Problems: (1) Abnormal liver enzymes (2) Depression (3) Diabetes insipidus (4) GERD (gastroesophageal reflux disease) (5) Glaucoma (6) Hypercholesteremia (7) Metabolic encephalopathy (8) NSTEMI, initial episode of care (9) Right frontal lobe mass (10) Sepsis (11) Ureterolithiasis (12) UTI (urinary tract infection) Family History Bladder cancer MOTHER Breast cancer SISTER FH: kidney disease FHx: heart disease Skin cancer MOTHER Social History Smoking Status: Former Smoker Alcohol Use: none Drug Use: none Marital Status: Housing Status: lives with family Occupation Status: retired Current/Historical Medications Scheduled Alendronate Sodium (Alendronate Sodium), 70 MG PO WK Calcitriol (Calcitriol), 0.25 MCG PO BID Calcium Carbonate-Cholecalcife (Caltrate 600+D), 1 TAB PO DAILY Cholecalciferol (Vitamin D-3), 1,000 INTER.UNIT PO DAILY Docusate Sodium (Docusate Sodium), 100 MG PO BID Hydrocortisone (Cortef), 15 MG PO QAM Hydrocortisone (Cortef), 5 MG PO UD Insulin Glargine (Basaglar Kwikpen), 6 UNITS SC HS Lactic Acid (Ammonium Lactate) (Ammonium Lactate), 1 APPLN TOP UD Latanoprost (Latanoprost), 1 DROP OPB HS Levothyroxine Sodium (Levothyroxine Sodium), 125 MCG PO DAILY Nitrofurantoin Monohyd Macro (Nitrofurantoin Monohydrat), 100 MG PO BID Nystatin (Topical) (Nystatin), 1 APPLN TOP UD Omeprazole (Prilosec), 20 MG PO DAILY Pediatric Multiple Vitamin W/ (Chewables Multivitamin Pederson), 1 TAB PO DAILY Polyethylene Glycol-Propylene (Systane Ultra), 1 DROP OP Q4-6 HRS Potassium Chloride Microencaps (Potassium Chloride Er), 10 MEQ PO DAILY Probiotic Product (Align), 1 CAP PO DAILY Scheduled PRN Acetaminophen (Tylenol), 650 MG PO Q6H PRN for Pain Menthol (Topical Analgesic) (Biofreeze), 1 APPLN TOP UD PRN for Pain Saline ([place] Nasal [place]), 1 SPRAY N/A UD PRN for Nasal Congestion Allergies Coded Allergies: Amoxicillin (Verified Allergy, Intermediate, Swelling of Lips, 06/07/16) Ciprofloxacin (Verified Allergy, Intermediate, RASH, NAUSEA, 06/07/16) Sulfa Antibiotics (Verified Allergy, Intermediate, RASH, 06/07/16) Biotin (Verified Allergy, Unknown, UNKN, 06/07/16) Mirtazapine (Verified Adverse Reaction, Intermediate, altered mental status changes, 06/07/16) Oxycodone (Verified Adverse Reaction, Mild, N/V, 06/07/16) Physical Exam Vital Signs Date Time Temp Pulse Resp B/P Pulse Ox O2 Delivery O2 Flow Rate FiO2 08/07/16 17:36 61 16 113/52 95 Room Air 08/07/16 16:41 66 16 115/58 94 Room Air 08/07/16 16:11 72 08/07/16 15:17 36.4 72 18 119/77 94 Room Air Physical Exam GENERAL: Patient is elderly appearing and chronically unwell appearing, in no distress. HEENT: No acute trauma, normocephalic atraumatic, mucous membranes moist, no nasal congestion, no scleral icterus. NECK: No stridor, no adenopathy, no meningismus, trachea is midline. LUNGS: No dyspnea. Clear to auscultation and equal bilaterally. No wheeze, no rhonchi. HEART: Regular rate and rhythm. No murmurs, rubs, gallops appreciated. ABDOMEN: Soft, nontender, bowel sounds positive, no masses appreciated, no peritonitis. BACK: No midline tenderness, no CVA tenderness EXTREMITIES: Normal motion all extremities, no cyanosis, no edema. NEUROLOGIC: Alert and oriented, no acute motor or sensory deficits, no focal weakness, cranial nerves grossly intact. SKIN: No rash, no jaundice, no diaphoresis. Medical Decision & Procedures ER Provider Diagnostic Interpretation: X ray results are stated below per my interpretation and the radiologist's interpretation. SINGLE VIEW CHEST CLINICAL HISTORY: Dyspnea. FINDINGS: An AP, portable, upright chest radiograph is compared to study dated 05/02/2016. The examination is degraded by portable technique, large body habitus, and patient rotation. The heart is top normal for projection and there is atherosclerotic calcification of the thoracic aorta. The pulmonary vasculature is noncongested. Chronic interstitial thickening and mild elevation of the right hemidiaphragm are similar to previous. No airspace consolidation or large pleural effusion is identified. There is mild bibasilar atelectasis. No pneumothorax is seen. The skeletal structures are osteopenic. The bony thorax is grossly intact. IMPRESSION: No acute cardiopulmonary abnormality. Electronically signed by: Awais Miller M.D. 08/07/2016 4:04 PM Dictated Date/Time: 08/07/2016 4:02 PM Laboratory Results 08/07/16 16:14 Red Blood Count 4.20, Mean Corpuscular Volume 88.6, Mean Corpuscular Hemoglobin 30.5, Mean Corpuscular Hemoglobin Concent 34.4, Mean Platelet Volume 10.2, Neutrophils (%) (Auto) 77.3, Lymphocytes (%) (Auto) 11.1, Monocytes (%) (Auto) 10.1, Eosinophils (%) (Auto) 0.5, Basophils (%) (Auto) 0.2, Neutrophils # (Auto ) 9.82, Lymphocytes # (Auto) 1.41, Monocytes # (Auto) 1.29, Eosinophils # (Auto ) 0.06, Basophils # (Auto) 0.03 08/07/16 16:14 Test 08/07/16 16:05 08/07/16 16:14 Urine Color YELLOW Urine Appearance CLEAR (CLEAR) Urine pH 7.0 (4.5-7.5) Urine Specific [place] 1.008 (1.000-1.030) Urine Protein NEG (NEG) Urine Glucose (UA) NEG (NEG) Urine Ketones NEG (NEG) Urine Occult Blood NEG (NEG) Urine Nitrite NEG (NEG) Urine Bilirubin NEG (NEG) Urine Urobilinogen NEG (NEG) Urine Leukocyte Esterase NEG (NEG) Urine WBC (Auto) 0 /hpf (0-5) Urine RBC (Auto) 0-4 /hpf (0-4) Urine Hyaline Casts (Auto) 0 /lpf (0-5) Urine Epithelial Cells (Auto) 0-5 /lpf (0-5) Urine Bacteria (Auto) NEG (NEG) White Blood Count 12.71 K/uL (4.8-10.8) Red Blood Count 4.20 M/uL (4.2-5.4) Hemoglobin 12.8 g/dL (12.0-16.0) Hematocrit 37.2 % (37-47) Mean Corpuscular Volume 88.6 fL (80-100) Mean Corpuscular Hemoglobin 30.5 pg (25-34) Mean Corpuscular Hemoglobin Concent 34.4 g/dl (32-36) Platelet Count 269 K/uL (130-400) Mean Platelet Volume 10.2 fL (7.4-10.4) Neutrophils (%) (Auto) 77.3 % Lymphocytes (%) (Auto) 11.1 % Monocytes (%) (Auto) 10.1 % Eosinophils (%) (Auto) 0.5 % Basophils (%) (Auto) 0.2 % Neutrophils # (Auto) 9.82 K/uL (1.4-6.5) Lymphocytes # (Auto) 1.41 K/uL (1.2-3.4) Monocytes # (Auto) 1.29 K/uL (0.11-0.59) Eosinophils # (Auto) 0.06 K/uL (0-0.5) Basophils # (Auto) 0.03 K/uL (0-0.2) RDW Standard Deviation 49.1 fL (36.4-46.3) RDW Coefficient of Variation 15.2 % (11.5-14.5) Immature Granulocyte % (Auto) 0.8 % Immature Granulocyte # (Auto) 0.10 K/uL (0.00-0.02) Anion Gap 6.0 mmol/L (3-11) Est Creatinine Clear Calc Drug Dose 40.7 ml/min Estimated GFR () 54.9 Estimated GFR (Non- 47.4 BUN/Creatinine Ratio 18.1 (10-20) Calcium Level 8.9 mg/dl (8.5-10.1) Troponin I < 0.015 ng/ml (0-0.045) Laboratory results as reviewed by me. ECG Indication: chest pain Rate (beats per minute): 68 Rhythm: normal sinus Findings: 1st degree AV block, no acute ischemic change, no ectopy Comparison ECG Date: morphology similar, when compared to previous on April 20 2016, there is mild increase in HI interval ED Course 1536: The patient was evaluated in room A2. A complete history and physical exam was performed. 1704: Reevaluated the patient and she is feeling much better. Discussed results and discharge instructions the patient, her , and caregiver. They verbalized understanding and agreement. The patient is ready for discharge. Medical Decision Differential: Sepsis, Infectious (UTI/Pneumonia/Meningitis/etc), Metabolic/ Electrolyte Abnormality, Cardiac, Hepatic, Endocrine, Toxicologic, Neurologic, amongst other pathologies entertained. 81 yr old female brought in for evaluation of episode of reportedly hearing voices earlier in day. This has resolved and she says it was just hearing voices of caregivers. She is alert, awake, oriented and in no distress. No suicidal/homicidal ideation. Entire work-up is benign. She has many CTs and MRI just a few months ago for similar episode which was felt related to medications as well thus I will hold on CT without any known trauma and fact she is completely neuro intact now. She was watched for some time without issue. UA is clear and she is happy. She was just stopped Macrobid thus I could presume that hallucinations were due to that? Currently I do not feel she requires inpatient treatment/monitoring and pt happy with going home. Impression Primary Impression: Hearing voices Additional Impression: Medication reaction Scribe Attestation The scribe's documentation has been prepared under my direction and personally reviewed by me in its entirety. I confirm that the note above accurately reflects all work, treatment, procedures, and medical decision making performed by me. Departure Information Dispostion Home / Self-Care Referrals Dank Carrillo M.D. (PCP) Patient Instructions My [facility] Additional Instructions A large work-up was unremarkable. It is possible the symptoms she was having earlier was due to reaction to the Macrobid though it is difficult to be certain of this. Return immediately if headache, weakness, altered mental status, fevers, increased hallucinations or other concerning symptoms. You have been examined and treated today on an emergency basis only. This is not a substitute for, or an effort to provide, complete comprehensive medical care. It is impossible to recognize and treat all injuries or illnesses in a single emergency department visit. It is therefore important that you follow up closely with your Primary Physician or [facility]. Call as soon as possible for an appointment so you can review all labs, imaging and other testing that you had. Return to Emergency Department, call 911 or seek immediate medical attention if you feel your symptoms are worsening. Problem Qualifiers Additional Impression: Medication reaction Encounter type: initial encounter Qualified Codes: T88.7XXA - Unspecified adverse effect of drug or medicament, initial encounter
--- NOTE | 2016-08-07 16:06 | DIAGNOSTIC IMAGING REPORT ---
SINGLE VIEW CHEST CLINICAL HISTORY: Dyspnea. FINDINGS: An AP, portable, upright chest radiograph is compared to study dated 05/02/2016. The examination is degraded by portable technique, large body habitus, and patient rotation. The heart is top normal for projection and there is atherosclerotic calcification of the thoracic aorta. The pulmonary vasculature is noncongested. Chronic interstitial thickening and mild elevation of the right hemidiaphragm are similar to previous. No airspace consolidation or large pleural effusion is identified. There is mild bibasilar atelectasis. No pneumothorax is seen. The skeletal structures are osteopenic. The bony thorax is grossly intact. IMPRESSION: No acute cardiopulmonary abnormality. Electronically signed by: Awais Miller M.D. 08/07/2016 4:04 PM Dictated Date/Time: 08/07/2016 4:02 PM
[2016-08-07 16:26] LABS: BASO % 0.2 %; BASO ABS # 0.03 K/uL (0-0.2); COMPLETE YES; EOS % 0.5 %; HEMATOCRIT 37.2 % (37-47); IG% 0.8 %; LYMPH % 11.1 %; LYMPH ABS # 1.41 K/uL (1.2-3.4); MEAN CELL VOLUME 88.6 fL (80-100); MEAN CORPUSCULAR HEMOGLOBIN 30.5 pg (25-34); MEAN CORPUSCULAR HGB CONC 34.4 g/dl (32-36); MEAN PLATELET VOLUME 10.2 fL (7.4-10.4); MONO % 10.1 %; NEUT % 77.3 %; PLATELET COUNT 269 K/uL (130-400); WHITE BLOOD COUNT 12.71 K/uL (4.8-10.8)
[2016-08-07] MEDS ORDERED: XLTOPS OPB (16:32)
[2016-08-07] MEDS ORDERED: INSU100I23 SC (16:32)
[2016-08-07] MEDS ORDERED: POTA20TA13 PO (16:32)
[2016-08-07] MEDS ORDERED: FSM70 PO (16:32)
[2016-08-07] MEDS ORDERED: NITR100C6 PO (16:32)
[2016-08-07] MEDS ORDERED: LEVO125T5 PO (16:32)
[2016-08-07] MEDS ORDERED: CALC1CAP36 PO (16:32)
[2016-08-07 16:38] LABS: URINE APPEARANCE CLEAR (CLEAR); URINE BILIRUBIN NEG (NEG); URINE COLOR YELLOW; URINE EPITHELIAL CELL AUTO 0-5 /lpf (0-5); URINE NITRITE NEG (NEG); URINE SPECIFIC GRAVITY 1.008 (1.000-1.030); UROBILINOGEN NEG (NEG); ZZURINE CULT IF INDIC CATH NO
[2016-08-07] MEDS ORDERED: LACT12LO28 TOP (16:38)
[2016-08-07] MEDS ORDERED: SALI0.6510 (16:38)
[2016-08-07 16:41] LABS: MANUAL MICROSCOPIC REQUIRED? NO; REVIEW REQ? NO
[2016-08-07] MEDS ORDERED: NYST1POW7 TOP (16:43)
[2016-08-07] MEDS ORDERED: DOCU100C31 PO (16:45)
[2016-08-07 17:03] LABS: BLOOD UREA NITROGEN 20 mg/dl (7-18); BUN/CREATININE RATIO 18.1 (10-20); CALCIUM 8.9 mg/dl (8.5-10.1); CARBON DIOXIDE 30 mmol/L (21-32); CHLORIDE 99 mmol/L (98-107); GLUCOSE 122 mg/dl (70-99); SODIUM 135 mmol/L (136-145)
[2016-08-07 17:36] VITALS: BP 113/52; PULSE 61; O2SAT 95
[2016-08-07] MEDS ORDERED: ACET-1311 PO (19:06)
[2016-09-04] MEDS ORDERED: MULT-506 PO (13:54)
[2016-09-04] MEDS ORDERED: DESM1TAB16 PO (13:56)
[2016-10-08] MEDS ORDERED: HYDR10TA52 PO ×2 (16:32)
[2016-10-18] MEDS ORDERED: MTR500 PO (09:51)
[2016-10-18] MEDS ORDERED: LVQ500 PO (09:51)
[2017-03-05] MEDS ORDERED: SYN100 PO (11:26)
== END 2016-08-07 17:37 | disposition home or self-care (01) ==
LOC: C.EDB 15:11 → C.EDA 17:37
DX: R44.0 Auditory hallucinations (principal); T37.8X5A Adverse effect of other specified systemic anti-infectives and antiparasitics, initial encounter; F32.9 Major depressive disorder, single episode, unspecified; E23.2 Diabetes insipidus; K21.9 Gastro-esophageal reflux disease without esophagitis; H40.9 Unspecified glaucoma; E78.00 Pure hypercholesterolemia, unspecified; I25.2 Old myocardial infarction; Z87.440 Personal history of urinary (tract) infections; Z80.52 Family history of malignant neoplasm of bladder; Z80.8 Family history of malignant neoplasm of other organs or systems; Z87.891 Personal history of nicotine dependence; Z79.899 Other long term (current) drug therapy

== ENCOUNTER → 2016-08-09 | Outpatient (CLI) | payer OTHER, BC ==
[~2016-08-09] MED LIST changes: +ACET-1311 PO; -ALEN70TA2 PO; +ASPI81TA28 PO; +ATV5X PO; -CALC0.2510 PO; +CALC1CAP36 PO; +CEFU1TAB35 PO; -CHOL1000 PO; -CLC100 PO; +DESM1TAB16 PO; +DOCU100C31 PO; +DONE1TAB11 PO; +FLUO0.0566 TOP; +FSM70 PO; +GLIM1TAB2 PO; -HYD10 PO; +HYDR10TA52 PO; +HYG/25 PO; -IMIP1INJ IV; -INSDGIPEN SC; +INSU100I23 SC; +LACT12LO28 TOP; -LACT12LO3 EXT; -LATA0.009 OP; +LEVO125T5 PO; +LVQ500 PO; +LVQ750 PO; -MCRK20 PO; +METH-1305 PO; +MIRA1TAB3 PO; -MRLP17 PO; +MTR500 PO; +MULT-506 PO; +MUPI1CRE TOP; +NITR100C6 PO; -NRV5 PO; -NYST100098 TOP; +NYST1POW7 TOP; +POLY335019 PO; +POTA20TA13 PO; +SALI0.6510; +SALI0.6510 NAE; -SALI0.6517 NAE; +SODI1.1C4 TOP; +SYN100 PO; -SYN112 PO; +XLTOPS OPB
--- NOTE | 2016-08-09 16:34 | MAMMOGRAPHY REPORT ---
BILATERAL DIGITAL SCREENING MAMMOGRAM WITH CAD: 08/09/2016 CLINICAL HISTORY: Routine screening. TECHNIQUE: Current study was also evaluated with a Computer Aided Detection (CAD) system. Bilatera l CC and MLO views were obtained. COMPARISON: Comparison is made to exams dated: 07/20/2015 mammogram, 10/20/2013 mammogram, 08/28/2012 ma mmogram, 08/28/2011 mammogram, 08/24/2010 mammogram, and 08/23/2009 mammogram - [facility] er. BREAST COMPOSITION: There are scattered areas of fibroglandular density in both breasts. FINDINGS: No suspicious masses, calcifications, or areas of architectural distortion are noted in e ither breast. There has been no significant interval change compared to prior exams. Scattered bila teral benign-appearing calcifications are not significantly changed. Note that the exam is signific antly limited as the patient could not move her head out of the way due to a recent spinal issue, an d her head/neck obscure large portions of the superior breast on the MLO views and lateral breasts o n the cc views. IMPRESSION: ACR BI-RADS CATEGORY 2: BENIGN Limited exam as described above. Within the limitations of the exam, there is no mammographic evide nce of malignancy. A 1 year screening mammogram is recommended. The patient will receive written n otification of the results. Approximately 10% of breast cancers are not detected with mammography. A negative mammographic repor t should not delay biopsy if a clinically suggestive mass is present. Shahida Verdin M.D. ah/:08/09/2016 14:48:10 Attending Technologist: Bettina Bang RT(R)(M), [facility] Track Greaser: Mario Isidro RT(R)(M), [facility] letter sent: Normal 1/2 BI-RADS Code: ACR BI-RADS Category 2: Benign
== END | disposition home or self-care (01) ==
LOC: C.MAMM 13:29
PROVIDERS: ATTEND Obstetrics & Gynecology
DX: Z12.31 Encounter for screening mammogram for malignant neoplasm of breast (principal)

== ENCOUNTER → 2016-08-10 | Outpatient (CLI) | payer OTHER, BC ==
[2016-08-10 17:45] LABS: BLOOD UREA NITROGEN 20 mg/dl (7-18); BUN/CREATININE RATIO 20.1 (10-20); CALCIUM 8.9 mg/dl (8.5-10.1); CARBON DIOXIDE 31 mmol/L (21-32); CHLORIDE 97 mmol/L (98-107); GLUCOSE 136 mg/dl (70-99); POTASSIUM 3.5 mmol/L (3.5-5.1); SODIUM 134 mmol/L (136-145)
== END | disposition home or self-care (01) ==
LOC: C.LABPVFM 11:13
PROVIDERS: ATTEND Family Medicine
DX: E87.6 Hypokalemia (principal)

== ENCOUNTER → 2016-08-15 | Outpatient (CLI) | payer BC, OTHER | END | disposition home or self-care (01) | LOC: C.LABPVFM 11:26 | PROVIDERS: ATTEND Urology | DX: R82.90 Unspecified abnormal findings in urine (principal) ==

== ENCOUNTER → 2016-08-20 | Outpatient (CLI) | payer OTHER ==
[2016-08-20 13:22] LABS: BLOOD UREA NITROGEN 20 mg/dl (7-18); BUN/CREATININE RATIO 17.8 (10-20); CALCIUM 9.5 mg/dl (8.5-10.1); CARBON DIOXIDE 29 mmol/L (21-32); CHLORIDE 94 mmol/L (98-107); GLUCOSE 156 mg/dl (70-99); MAGNESIUM 1.6 mg/dl (1.8-2.4); POTASSIUM 3.4 mmol/L (3.5-5.1); SODIUM 131 mmol/L (136-145)
[2016-08-20 13:23] LABS: PHOSPHORUS 3.3 mg/dl (2.5-4.9)
== END | disposition home or self-care (01) ==
LOC: C.LABPVFM 08:46
PROVIDERS: ATTEND Internal Medicine
DX: E87.1 Hypo-osmolality and hyponatremia (principal); N18.3 Chronic kidney disease, stage 3 (moderate); E87.6 Hypokalemia

== ENCOUNTER → 2016-08-22 | Outpatient (CLI) | payer OTHER | END | disposition home or self-care (01) | LOC: C.LABPVFM 12:16 | PROVIDERS: ATTEND Nurse Practitioner Family | DX: N39.0 Urinary tract infection, site not specified (principal) ==

== ENCOUNTER → 2016-08-31 | Outpatient (CLI) | payer OTHER ==
[~2016-08-31] MED LIST changes: -NITR100C6 PO
[2016-08-31 14:12] LABS: ESTIMATED AVERAGE GLUCOSE 146 mg/dl; HA1C FLAG Normal (Normal)
[2016-08-31 14:39] LABS: ALT/SGPT 40 U/L (12-78); AST/SGOT 23 U/L (15-37); BLOOD UREA NITROGEN 21 mg/dl (7-18); BUN/CREATININE RATIO 23.1 (10-20); CALCIUM 8.8 mg/dl (8.5-10.1); CARBON DIOXIDE 27 mmol/L (21-32); CHLORIDE 90 mmol/L (98-107); CREATININE 0.91 mg/dl (0.60-1.20); GLUCOSE 125 mg/dl (70-99); SODIUM 125 mmol/L (136-145)
[2016-08-31 14:42] LABS: ALB/GLOB RATIO 0.9 (0.9-2); ALKALINE PHOSPHATASE 86 U/L (45-117); CHOLESTEROL 150 mg/dl (0-200); CHOLESTEROL/HDL RATIO 2.3; HDL CHOLESTEROL 65 mg/dl; LDL CHOLESTEROL CALCULATED 67 mg/dl; TRIGLYCERIDES 92 mg/dl (0-150); VERY LOW DENSITY LIPOPROT CALC 18 mg/dl
== END | disposition home or self-care (01) ==
LOC: C.LAB 13:09 → C.LABSPEC 13:09
PROVIDERS: ATTEND Internal Medicine Endocrinology, Diabetes & Metabolism
DX: I10 Essential (primary) hypertension (principal); N20.0 Calculus of kidney; E23.0 Hypopituitarism; E23.6 Other disorders of pituitary gland; M81.0 Age-related osteoporosis without current pathological fracture; E55.9 Vitamin D deficiency, unspecified; E11.9 Type 2 diabetes mellitus without complications; G47.10 Hypersomnia, unspecified; N12 Tubulo-interstitial nephritis, not specified as acute or chronic

== ENCOUNTER → 2016-09-10 | Outpatient (CLI) | payer OTHER ==
[~2016-09-10] MED LIST changes: -PEDI-68 PO
[2016-09-10 17:34] LABS: URINE APPEARANCE CLEAR (CLEAR); URINE BILIRUBIN NEG (NEG); URINE COLOR DK YELLOW; URINE EPITHELIAL CELL AUTO >30 /lpf (0-5); URINE NITRITE NEG (NEG); UROBILINOGEN NEG (NEG)
[2016-09-10 17:41] LABS: MANUAL MICROSCOPIC REQUIRED? NO; REVIEW REQ? NO
== END | disposition home or self-care (01) ==
LOC: C.LABPVFM 16:04
PROVIDERS: ATTEND Physician Assistant
DX: N39.0 Urinary tract infection, site not specified (principal); R35.0 Frequency of micturition

== ENCOUNTER → 2016-09-13 | Outpatient (CLI) | payer OTHER ==
[2016-09-13 18:14] LABS: URINE APPEARANCE CLEAR (CLEAR); URINE BILIRUBIN NEG (NEG); URINE COLOR YELLOW; URINE NITRITE NEG (NEG); URINE SPECIFIC GRAVITY 1.009 (1.000-1.030); UROBILINOGEN NEG (NEG)
[2016-09-13 18:20] LABS: MANUAL MICROSCOPIC REQUIRED? NO; REVIEW REQ? NO
== END | disposition home or self-care (01) ==
LOC: C.LABPVFM 09:03
PROVIDERS: ATTEND Internal Medicine Endocrinology, Diabetes & Metabolism
DX: R35.0 Frequency of micturition (principal); E23.0 Hypopituitarism

== ENCOUNTER → 2016-09-20 | Outpatient (CLI) | payer OTHER | END | disposition home or self-care (01) | LOC: C.LABPVFM 09:32 | PROVIDERS: ATTEND Internal Medicine Endocrinology, Diabetes & Metabolism | DX: E23.0 Hypopituitarism (principal); R35.0 Frequency of micturition; E87.6 Hypokalemia ==

== ENCOUNTER → 2016-09-27 | Outpatient (CLI) | payer OTHER, BC ==
--- NOTE | 2016-09-27 09:14 | DIAGNOSTIC IMAGING REPORT ---
KUB CLINICAL HISTORY: Nephrolithiasis. FINDINGS: 2 AP supine abdominal radiographs are compared to study dated 05/08/2016 and correlated with abdominal CT dated 04/13/2016. There is a nonobstructed abdominal bowel gas pattern noting moderate colonic fecal retention. No renal calculi are clearly identified. Phleboliths are seen in the pelvis. The skeletal structures are osteopenic. There is moderate to advanced lumbosacral spondylosis. IMPRESSION: 1. There is no clear radiographic evidence of nephrolithiasis on today's examination. 2. Moderate constipation. Electronically signed by: Awais Miller M.D. 09/27/2016 9:13 AM Dictated Date/Time: 09/27/2016 9:12 AM
== END | disposition home or self-care (01) ==
LOC: C.RADPV 08:49
PROVIDERS: ATTEND Urology
DX: N20.0 Calculus of kidney (principal); I10 Essential (primary) hypertension; E23.0 Hypopituitarism; K59.00 Constipation, unspecified

== ENCOUNTER → 2016-10-02 | Outpatient (CLI) | payer OTHER | END | disposition home or self-care (01) | LOC: C.LABSPEC 10:48 | PROVIDERS: ATTEND Urology | DX: N39.0 Urinary tract infection, site not specified (principal) ==

== ENCOUNTER 2016-10-08 20:52 | Inpatient (IN) | payer OTHER, BC ==
[~2016-10-08] VITALS: Ht 157.5 cm; Wt 79.4 kg
[~2016-10-08 20:52] MED LIST changes: -ASPI81TA28 PO; -ATV5X PO; -CEFU1TAB35 PO; -DESM0.1T8 PO; -DONE1TAB11 PO; -FLUO0.0566 TOP; -GLIM1TAB2 PO; -HYG/25 PO; -LVQ500 PO; -LVQ750 PO; -METH-1305 PO; -MIRA1TAB3 PO; -MTR500 PO; -MUPI1CRE TOP; -POLY335019 PO; -SALI0.6510 NAE; -SODI1.1C4 TOP; -SYN100 PO
[2016-10-08] MEDS ORDERED: SODIUM CHLORIDE 0.9% 1000ML 1,000 ML IV ONE ×3 (21:15→23:30)
[2016-10-08 21:27] LABS: URINE APPEARANCE CLEAR (CLEAR); URINE BILIRUBIN NEG (NEG); URINE COLOR YELLOW; URINE EPITHELIAL CELL AUTO >30 /lpf (0-5); URINE NITRITE NEG (NEG); URINE SPECIFIC GRAVITY 1.006 (1.000-1.030); UROBILINOGEN NEG (NEG); ZZURINE CULT IF INDIC CATH NO
[2016-10-08 21:29] LABS: MANUAL MICROSCOPIC REQUIRED? NO; REVIEW REQ? YES
--- NOTE | 2016-10-08 21:38 | EMERGENCY ROOM VISIT NOTE ---
History Report prepared by Eliezer: Sierra Braun Under the Supervision of: Dr. Adrien Kitchen M.D. First contact with patient: 20:54 Chief Complaint: URINARY SYMPTOMS Stated Complaint: FOUND UNRESPONSIVE History of Present Illness The patient is a 81 year old female who presents to the Emergency Room via EMS with complaints of a unresponsive episode occurring a few minutes prior to arrival. The patient currently denies any pain. She denies any pain with urination. As per , the patient has been weak for the past few days. Her caregiver was trying to get her up from the toilet when she became unresponsive. Her symptoms today are similar to her past ones with urinary tract infection with sepsis. Every time she has a UTI she exhibits stroke-like symptoms. The patient has also been losing appetite over the past few days. She has been complaining of right sided abdominal pain. She has a history of gallstones and is supposed to have her gallbladder checked tomorrow. HPI is limited secondary to patient's minimal verbal responses. Additional history is obtained as per . Source of History: patient, spouse/significant other History Limited By: other (minimal verbal responses) Onset: a few minutes prior to arrival Position: other (global) Symptom Intensity: No pain Quality: other (unresponsive episode) Associated Symptoms: + weakness Review of Systems ROS is limited secondary to patient's minimal verbal responses. Past Medical & Surgical Medical Problems: (1) Abnormal liver enzymes (2) Depression (3) Diabetes insipidus (4) GERD (gastroesophageal reflux disease) (5) Glaucoma (6) Hypercholesteremia (7) Metabolic encephalopathy (8) NSTEMI, initial episode of care (9) Right frontal lobe mass (10) Sepsis (11) Ureterolithiasis (12) UTI (urinary tract infection) Family History Bladder cancer MOTHER Breast cancer SISTER FH: kidney disease FHx: heart disease Skin cancer MOTHER Social History Smoking Status: Former Smoker Alcohol Use: none Drug Use: none Marital Status: Housing Status: lives with family Occupation Status: retired Current/Historical Medications Scheduled Alendronate Sodium (Alendronate Sodium), 70 MG PO WK Aspirin (Aspirin Ec), 81 MG PO DAILY Calcitriol (Calcitriol), 0.25 MCG PO DAILY Calcium Carbonate-Cholecalcife (Caltrate 600+D), 1 TAB PO DAILY Cefuroxime Axetil (Cefuroxime Axetil), 500 MG PO BID Chlorthalidone (Hygroton), 12.5 MG PO DAILY Cholecalciferol (Vitamin D-3), 1,000 INTER.UNIT PO DAILY Desmopressin Acetate (Desmopressin Acetate), 0.1 MG PO D Docusate Sodium (Docusate Sodium), 100 MG PO BID Hydrocortisone (Cortef), 15 MG PO QAM Hydrocortisone (Cortef), 5 MG PO UD Insulin Glargine (Basaglar Kwikpen), 13 UNITS SC HS Lactic Acid (Ammonium Lactate) (Ammonium Lactate), 1 APPLN TOP UD Latanoprost (Latanoprost), 1 DROP OPB HS Levothyroxine Sodium (Levothyroxine Sodium), 125 MCG PO DAILY Multivitamin (Multivitamin), 1 TAB PO DAILY Nystatin (Topical) (Nystatin), 1 APPLN TOP UD Omeprazole (Prilosec), 20 MG PO DAILY Polyethylene Glycol-Propylene (Systane Ultra), 1 DROP OP Q4-6 HRS Potassium Chloride Microencaps (Potassium Chloride Er), 20 MEQ PO DAILY Probiotic Product (Align), 1 CAP PO DAILY Sodium Fluoride (Dental) (Sf 5000 Plus), 1 APPLN TOP BID Scheduled PRN Acetaminophen (Tylenol), 650 MG PO Q6H PRN for Pain Menthol (Topical Analgesic) (Biofreeze), 1 APPLN TOP UD PRN for Pain Saline ([place] Nasal [place]), 1 SPRAY N/A UD PRN for Nasal Congestion Allergies Coded Allergies: Amoxicillin (Verified Allergy, Intermediate, Swelling of Lips, 09/04/16) Ciprofloxacin (Verified Allergy, Intermediate, RASH, NAUSEA, 09/04/16) Sulfa Antibiotics (Verified Allergy, Intermediate, RASH, 09/04/16) Biotin (Verified Allergy, Unknown, UNKN, 09/04/16) Cefepime (Verified Adverse Reaction, Severe, HALLUCINATIONS, 09/04/16) Diphenhydramine (Verified Adverse Reaction, Severe, HYPER INSOMNIA, ) Imipenem (Verified Adverse Reaction, Severe, HALLUCINATIONS, 09/04/16) Mirtazapine (Verified Adverse Reaction, Intermediate, altered mental status changes, 09/04/16) Nitrofurantoin (Verified Adverse Reaction, Intermediate, CHEST PAIN, CONFUSION, 09/04/16) Oxycodone (Verified Adverse Reaction, Mild, N/V, 09/04/16) Physical Exam Vital Signs Date Time Temp Pulse Resp B/P (MAP) Pulse Ox O2 Delivery O2 Flow Rate FiO2 10/09/16 00:18 100 20 117/57 98 Room Air 10/08/16 23:43 97 20 106/52 98 Room Air 10/08/16 23:23 100 20 95/65 93 Room Air 10/08/16 22:20 103 20 112/64 95 Room Air 10/08/16 21:42 96 Room Air 10/08/16 21:34 103 10/08/16 20:56 36.8 104 20 110/63 96 Room Air Physical Exam GENERAL: Patient awake, alert, in no acute distress. Providing minimal verbal responses. Does follow commands. SKIN: No erythema, pallor, cyanosis or rash HEENT: Normal head, pupils equal, reactive to light and accommodation. Ears normal. Oral cavity and posterior pharynx appear normal. Neck: Without adenopathy, no neck vein distention. LUNGS: Clear to auscultation. No wheezes, no rales, no rhonchi. HEART: Irregularly irregular rhythm. Rapid rate. No murmurs. No gallops. No rubs ABDOMEN: No masses, no rebound, no hepatomegaly or splenomegaly. EXTREMITIES: No signs of trauma. No pedal or pretibial edema. No calf or thigh tenderness. NEUROLOGIC: Cranial nerves II-XII within normal limits. No gross motor sensory function deficits. Medical Decision & Procedures ER Provider Diagnostic Interpretation: X ray results are stated below per my interpretation and the radiologist's interpretation. CHEST ONE VIEW PORTABLE CLINICAL HISTORY: syncope PATIENT FOUND UNRESPONSIVE COMPARISON STUDY: 08/07/2016 FINDINGS: The heart is enlarged. There is mild chronic interstitial thickening. There is no lobar consolidation. There is stable left basilar atelectasis/scarring.[ There are no significant pleural effusions. IMPRESSION: No change from the preceding study. Chronic findings. No active disease in the chest. Electronically signed by: Lico Cabral M.D. 10/08/2016 9:37 PM Dictated Date/Time: 10/08/2016 9:[address] and US results as stated below per my review and radiologist interpretation: CT HEAD Comparison: MRI brain 04/10/16, CT head 04/09/16. Redemonstrated left frontotemporal and right anterior frontal craniotomies. No evidence of skull fracture. Clear sinuses and mastoid air cells. No ICH, mass effect, or midline shift. There is encephalomalacia subjacent to the bilateral craniotomy sites and in the anterosuperior left frontal lobe. There is chronic small vessel ischemic disease in the cerebral and pontine white matter. No CT evidence of acute territorial infarct, although evaluation is limited given extensive white matter disease. Radiologist: Rodney Espino MD US GALLBLADDER Comparison: CT abdomen and pelvis 04/13/16. There is cholelithiasis, sludge, and gallbladder distention with wall thickening measuring 3 mm. Sonographic Lujan's sign cannot be evaluated. Findings raise the possibility of acute cholecystitis and clinical correlation is requested. Common bile duct is normal in caliber measuring 4 mm. No hydronephrosis. Right kidney complicated cyst measuring 1.6 cm containing a septation. Renal and pancreatic atrophy. Heterogenous liver measuring 13.6 cm with patent, normally directed portal vein. Radiologist: Rodney Espino MD Laboratory Results 10/08/16 22:22 Red Blood Count 4.68, Mean Corpuscular Volume 86.8, Mean Corpuscular Hemoglobin 30.6, Mean Corpuscular Hemoglobin Concent 35.2, Mean Platelet Volume 10.4, Neutrophils (%) (Auto) 91.0, Lymphocytes (%) (Auto) 1.8, Monocytes (%) (Auto) 6.1, Eosinophils (%) (Auto) 0.0, Basophils (%) (Auto) 0.1, Neutrophils # (Auto) 20.19, Lymphocytes # (Auto) 0.39, Monocytes # (Auto) 1.35, Eosinophils # (Auto) 0.01, Basophils # (Auto) 0.02 10/08/16 22:22 Test 10/08/16 21:16 10/08/16 22:22 10/08/16 22:27 Urine Color YELLOW Urine Appearance CLEAR (CLEAR) Urine pH 8.0 (4.5-7.5) Urine Specific [place] 1.006 (1.000-1.030) Urine Protein NEG (NEG) Urine Glucose (UA) NEG (NEG) Urine Ketones NEG (NEG) Urine Occult Blood NEG (NEG) Urine Nitrite NEG (NEG) Urine Bilirubin NEG (NEG) Urine Urobilinogen NEG (NEG) Urine Leukocyte Esterase MODERATE (NEG) Urine WBC (Auto) 5-10 /hpf (0-5) Urine RBC (Auto) 0-4 /hpf (0-4) Urine Hyaline Casts (Auto) 1-5 /lpf (0-5) Urine Epithelial Cells (Auto) >30 /lpf (0-5) Urine Bacteria (Auto) NEG (NEG) Urine Renal Epithelial Cells /lpf (0-5) White Blood Count 22.19 K/uL (4.8-10.8) Red Blood Count 4.68 M/uL (4.2-5.4) Hemoglobin 14.3 g/dL (12.0-16.0) Hematocrit 40.6 % (37-47) Mean Corpuscular Volume 86.8 fL (80-100) Mean Corpuscular Hemoglobin 30.6 pg (25-34) Mean Corpuscular Hemoglobin Concent 35.2 g/dl (32-36) Platelet Count 262 K/uL (130-400) Mean Platelet Volume 10.4 fL (7.4-10.4) Neutrophils (%) (Auto) 91.0 % Lymphocytes (%) (Auto) 1.8 % Monocytes (%) (Auto) 6.1 % Eosinophils (%) (Auto) 0.0 % Basophils (%) (Auto) 0.1 % Neutrophils # (Auto) 20.19 K/uL (1.4-6.5) Lymphocytes # (Auto) 0.39 K/uL (1.2-3.4) Monocytes # (Auto) 1.35 K/uL (0.11-0.59) Eosinophils # (Auto) 0.01 K/uL (0-0.5) Basophils # (Auto) 0.02 K/uL (0-0.2) RDW Standard Deviation 49.6 fL (36.4-46.3) RDW Coefficient of Variation 15.7 % (11.5-14.5) Immature Granulocyte % (Auto) 1.0 % Immature Granulocyte # (Auto) 0.23 K/uL (0.00-0.02) Prothrombin Time 10.7 SECONDS (9.0-12.0) Prothromb Time International Ratio 1.0 (0.9-1.1) Activated Partial Thromboplast Time 23.8 SECONDS (21.0-31.0) Partial Thromboplastin Ratio 0.9 Anion Gap 11.0 mmol/L (3-11) Estimated GFR () 44.9 Estimated GFR (Non- 38.7 BUN/Creatinine Ratio 11.4 (10-20) Calcium Level 9.3 mg/dl (8.5-10.1) Total Bilirubin 2.4 mg/dl (0.2-1) Aspartate Amino Transf (AST/SGOT) 920 U/L (15-37) Alanine Aminotransferase (ALT/SGPT) 801 U/L (12-78) Alkaline Phosphatase 377 U/L (45-117) Troponin I < 0.015 ng/ml (0-0.045) Total Protein 7.5 gm/dl (6.4-8.2) Albumin 2.9 gm/dl (3.4-5.0) Globulin 4.6 gm/dl (2.5-4.0) Albumin/Globulin Ratio 0.6 (0.9-2) Thyroid Stimulating Hormone (TSH) < 0.005 uIu/ml (0.300-4.500) Bedside Lactic Acid Venous 2.99 mmol/L (0.90-1.70) Laboratory results as stated above per my review. Medications Administered Medications (Trade) Dose Ordered Sig/Natalee Route Start Time Stop Time Status Last Admin Dose Admin Sodium Chloride 1,000 ml @ 1,000 mls/hr Q1H ONCE IV 10/08/16 21:15 10/08/16 22:14 DC 10/08/16 21:15 1,000 MLS/HR Sodium Chloride 1,000 ml @ 1,000 mls/hr Q1H ONCE IV 10/08/16 22:45 10/08/16 23:44 DC 10/08/16 23:43 1,000 MLS/HR Aztreonam 2000 mg/ Dextrose 110 ml @ 100 mls/hr ONE ONCE IV 10/08/16 23:30 10/09/16 00:35 DC 10/09/16 00:16 100 MLS/HR Metronidazole (Flagyl / Nss) 500 mg NOW STAT IV 10/08/16 23:29 10/08/16 23:33 DC 10/08/16 23:42 500 MG Daptomycin 500 mg/ Sodium Chloride 60 ml @ 100 mls/hr ONE ONCE IV 10/08/16 23:30 10/09/16 00:05 DC 10/09/16 00:16 100 MLS/HR ECG Indication: other (Unresponsiveness) Rate (beats per minute): 106 Rhythm: atrial fibrillation (with RVR) Findings: prolonged QT, other (normal axis) ED Course 2053: Past medical records reviewed. The patient was evaluated in room B03B. A complete history and physical examination was performed. 2114: Sodium Chloride 1000 ml @ 1000 mls/hr IV 2229: I reevaluated the patient who is resting comfortably. 2244: Sodium Chloride 1000 ml @ 1000 mls/hr IV 2329: Metronidazole 500 mg IV 2330: Sodium Chloride 1000 ml @ 999 mls/hr iV, Daptomycin 500 mg/Sodium Chloride 60 ml @ 100 mls/hr IV, Aztreonam 2000 mg/Dextrose 110 ml @ 100 mls/hr IV 2348: Upon reevaluation, the patient is resting comfortably.I discussed today's findings with the patient's . He verbalized agreement of the treatment plan. I spoke with Dr. Prasad of the [facility] to evaluate the patient for further management. 2355: Discussed case with Dr. Alva. He would like this patient to be evaluated by GI for possible ERCP. 0027: I discussed the patient's case with Dr. Ocasio, self contained behavior unit teacher with [facility]. He recommended hospitalizing the patient and he will have Dr. Chappell evaluate the patient in the morning for possible ERCP. Medical Decision Differential diagnosis includes but is not limited to vasovagal syncope, urinary tract infection, metabolic disorder, CVA, TIA, gallbladder disease, sepsis. Multiple labs, EKG and imaging were obtained. Please see above. EKG reveals an atrial fibrillation which appears to be new. The patient's liver enzymes are markedly elevated. The patient has moderate leukocytes in her urine. White count is significantly elevated along with her lactic acid. The patient is septic. The patient was given large volumes of fluid. Ultrasound was obtained to evaluate the gallbladder. Chest x-ray is clear and does not represent a pneumonia. The patient was treated for sepsis with IV antibiotics. Please see above. Only one blood culture could be obtained prior to administration of antibiotics because of the patient's poor IV access. I did not want to wait longer to start the antibiotics. Ultrasound is consistent with possible cholecystitis. The exact source of her infection remains unknown but most likely she has an ascending cholangitis. Multiple consultations were obtained. Please see below. Medication Reconciliation: I attest that I have personally reviewed the patient' s current medication list. Blood pressure Screening: Patient was found to have normal blood pressure on screening and does not require follow up. Consults Time Called: [phone] Consulting Physician: [facility] Returned Call: [phone] [facility] to evaluate the patient for further management. Additional Consults: Time Called: 8 Consulted Physician: Dr. Ocasio self contained behavior unit teacher with [facility] Returned Call: [phone] Additional Comments: I discussed the patient's case with Dr. Ocasio self contained behavior unit teacher with [facility]. He recommended hospitalizing the patient and he will have Dr. Chappell evaluate the patient in the morning for possible ERCP. Time Called: [id number] Consulted Physician: Nida Returned Call: [phone] Additional Comments: Case was discussed. He felt the patient should be referred to GI for a possible ERCP. Impression Primary Impression: Sepsis Additional Impressions: Ascending cholangitis UTI (urinary tract infection) Atrial fibrillation Critical Care I have personally spent greater than 60 minutes of critical care time in the direct management of this patient. This includes bedside care, interpretation of diagnostic studies, and testing, discussion with consultants, patient, and family members, and other required patient management activities. This 60 minutes is in excess of all separately billable procedures. Scribe Attestation The scribe's documentation has been prepared under my direction and personally reviewed by me in its entirety. I confirm that the note above accurately reflects all work, treatment, procedures, and medical decision making performed by me. Departure Information Dispostion Being Evaluated By Hospitalist Referrals Dank Carrillo M.D. (PCP) Patient Instructions My [facility] Problem Qualifiers
[2016-10-08] MEDS ORDERED: DESM0.1T8 PO (21:45)
[2016-10-08] MEDS ORDERED: CEFU1TAB35 PO (21:56)
[2016-10-08] MEDS ORDERED: SODI1.1C4 TOP (21:56)
[2016-10-08] MEDS ORDERED: ASPI81TA28 PO (21:56)
[2016-10-08] MEDS ORDERED: HYG/25 PO (21:56)
[2016-10-08 22:35] LABS: HEMATOCRIT 40.6 % (37-47); MEAN CELL VOLUME 86.8 fL (80-100); MEAN CORPUSCULAR HEMOGLOBIN 30.6 pg (25-34); MEAN CORPUSCULAR HGB CONC 35.2 g/dl (32-36); MEAN PLATELET VOLUME 10.4 fL (7.4-10.4); PLATELET COUNT 262 K/uL (130-400); RED BLOOD COUNT 4.68 M/uL (4.2-5.4); WHITE BLOOD COUNT 22.19 K/uL (4.8-10.8)
[2016-10-08 22:41] LABS: PARTIAL THROMBOPLASTIN RATIO 0.9; PROTHROMBIN TIME (PATIENT) 10.7 SECONDS (9.0-12.0)
[2016-10-08 22:53] LABS: ALT/SGPT 801 U/L (12-78); BLOOD UREA NITROGEN 15 mg/dl (7-18); BUN/CREATININE RATIO 11.4 (10-20); CARBON DIOXIDE 25 mmol/L (21-32); CHLORIDE 96 mmol/L (98-107); GLUCOSE 146 mg/dl (70-99); POTASSIUM 3.2 mmol/L (3.5-5.1); SODIUM 132 mmol/L (136-145)
[2016-10-08 22:55] LABS: BASO % 0.1 %; BASO ABS # 0.02 K/uL (0-0.2); COMPLETE YES; LYMPH % 1.8 %; LYMPH ABS # 0.39 K/uL (1.2-3.4); MONO % 6.1 %
[2016-10-08 23:03] LABS: ALB/GLOB RATIO 0.6 (0.9-2); ALKALINE PHOSPHATASE 377 U/L (45-117); AST/SGOT 920 U/L (15-37); THYROID STIMULATING HORMONE < 0.005 uIu/ml (0.300-4.500)
[2016-10-08 23:10] LABS: CALCIUM 9.3 mg/dl (8.5-10.1)
[2016-10-08] MEDS ORDERED: METRONIDAZOLE 500MG / 100ML NSS IV STA (23:29)
[2016-10-08] MEDS ORDERED: DAPTOmycin IV 500 MG in SODIUM CHLORIDE 0.9% 50ML 50 ML IV ONE (23:30)
[2016-10-08] MEDS ORDERED: AZTREONAM IV 2,000 MG in DEXTROSE 5% 100ML 100 ML IV ONE (23:30)
[2016-10-09] VITALS (12 sets, daily range): BP systolic 97–154; BP diastolic 58–94; PULSE 18–110; TEMP 36.6–36.9; O2SAT 92–99; Ht 157.5 cm; Wt 79.4 kg
[2016-10-09] MEDS ORDERED: POTASSIUM CHLR 10 MEQ / WTR 10 MEQ in PREMIXED WATER 100 ML IV STA (01:04)
[2016-10-09] MEDS ORDERED: ARTIFICIAL TEARS OP SOLN OP PRN ×2 (01:15)
[2016-10-09] MEDS ORDERED: POTASSIUM CHLORIDE 10 MEQ / 100ML WTR IV ONE (01:23)
[2016-10-09] MEDS ORDERED: MAGNESIUM SULFATE 1GM / D5W 1 GM in PREMIXED IN D5W 100 ML IV ONE (02:30)
--- NOTE | 2016-10-09 02:34 | History and Physical ---
History & Physical Date & Time of Service: Oct 09, 2016 at 01:50 Chief Complaint: Found Unresponsive Primary Care Physician: Dank Carrillo M.D. History of Present Illness Source: family 81 y/o F w/Hx panhypopituitarism, HTN, HPL, recurrent UTIs, renal calculi, DM. Brought in by family after becoming briefly unresponsive at home. Her caregiver was helping her up off the toilet when she became unresponsive although she did not appear to lose consciousness. Per family, this has occurred previously when the pt developed an infection. The family reports that she has become progressively weak over the past few days and had been c/o RUQ pain as well. She was scheduled for an outpt ultrasound as she has known gallstones. On arrival to the ER she is lethargic and is unable to contribute to the HPI. She has leukocytosis, an elevated lactic acid and elevated LFTs. An abdominal ultrasound is consistent with acute cholecystitis. It is noted that she is currently being treated for a UTI and her UA is marginally positive, however, this is less likely to be the etiology of her acute symptoms. 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 She has resultant DI, adrenal insufficiency, hypothyroidism 7) DM 2 8) Legal blindness Family History Bladder cancer MOTHER Breast cancer SISTER FH: kidney disease FHx: heart disease Skin cancer MOTHER Social History Smoking Status: Former Smoker Drug Use: none Marital Status: Housing status: lives with family Occupational Status: retired Immunizations History of Influenza Vaccine: No Influenza Vaccine Date: Feb 04, 2010 History of Tetanus Vaccine?: No History of Pneumococcal: YES- [place] 2008 History of Hepatitis B Vaccine: No Multi-Drug Resistant Organisms History of MDRO: No Allergies Coded Allergies: Amoxicillin (Verified Allergy, Intermediate, Swelling of Lips, 09/04/16) Ciprofloxacin (Verified Allergy, Intermediate, RASH, NAUSEA, 09/04/16) Sulfa Antibiotics (Verified Allergy, Intermediate, RASH, 09/04/16) Biotin (Verified Allergy, Unknown, UNKN, 09/04/16) Cefepime (Verified Adverse Reaction, Severe, HALLUCINATIONS, 09/04/16) Diphenhydramine (Verified Adverse Reaction, Severe, HYPER INSOMNIA, ) Imipenem (Verified Adverse Reaction, Severe, HALLUCINATIONS, 09/04/16) Mirtazapine (Verified Adverse Reaction, Intermediate, altered mental status changes, 09/04/16) Nitrofurantoin (Verified Adverse Reaction, Intermediate, CHEST PAIN, CONFUSION, 09/04/16) Oxycodone (Verified Adverse Reaction, Mild, N/V, 09/04/16) Home Medications Scheduled Alendronate Sodium (Alendronate Sodium), 70 MG PO WK Aspirin (Aspirin Ec), 81 MG PO DAILY Calcitriol (Calcitriol), 0.25 MCG PO DAILY Calcium Carbonate-Cholecalcife (Caltrate 600+D), 1 TAB PO DAILY Cefuroxime Axetil (Cefuroxime Axetil), 500 MG PO BID Chlorthalidone ([place]ton), 12.5 MG PO DAILY Cholecalciferol (Vitamin D-3), 1,000 INTER.UNIT PO DAILY Desmopressin Acetate (Desmopressin Acetate), 0.1 MG PO D Docusate Sodium (Docusate Sodium), 100 MG PO BID Hydrocortisone (Cortef), 15 MG PO QAM Hydrocortisone (Cortef), 5 MG PO UD Insulin Glargine (Basaglar Kwikpen), 13 UNITS SC HS Lactic Acid (Ammonium Lactate) (Ammonium Lactate), 1 APPLN TOP UD Latanoprost (Latanoprost), 1 DROP OPB HS Levothyroxine Sodium (Levothyroxine Sodium), 125 MCG PO DAILY Multivitamin (Multivitamin), 1 TAB PO DAILY Nystatin (Topical) (Nystatin), 1 APPLN TOP UD Omeprazole (Prilosec), 20 MG PO DAILY Polyethylene Glycol-Propylene (Systane Ultra), 1 DROP OP Q4-6 HRS Potassium Chloride Microencaps (Potassium Chloride Er), 20 MEQ PO DAILY Probiotic Product (Align), 1 CAP PO DAILY Sodium Fluoride (Dental) (Sf 5000 Plus), 1 APPLN TOP BID Scheduled PRN Acetaminophen (Tylenol), 650 MG PO Q6H PRN for Pain Menthol (Topical Analgesic) (Biofreeze), 1 APPLN TOP UD PRN for Pain Saline ([place] Nasal [place]), 1 SPRAY N/A UD PRN for Nasal Congestion Review of Systems CAnnot obtain from pt - per family c/o RUQ pain, weakness - brief unresponsive episode as above Physical Exam Vital Signs Date Time Temp Pulse Resp B/P (MAP) Pulse Ox O2 Delivery O2 Flow Rate FiO2 10/09/16 01:34 106 20 100/50 95 Room Air 10/09/16 00:59 106 20 121/69 95 Room Air 10/09/16 00:18 100 20 117/57 98 Room Air 10/08/16 23:43 97 20 106/52 98 Room Air 10/08/16 23:23 100 20 95/65 93 Room Air 10/08/16 23:21 100 10/08/16 22:20 103 20 112/64 95 Room Air 10/08/16 21:42 96 Room Air 10/08/16 21:34 103 10/08/16 20:56 36.8 104 20 110/63 96 Room Air General Appearance: + pertinent finding (Lethargic elderly femal appears mildly distressed) Head: + pertinent finding (Frontal scarring on scalp) Eyes: normal inspection ENT: hearing grossly normal Neck: supple, no JVD Respiratory/Chest: chest non-tender, lungs clear, normal breath sounds Cardiovascular: no edema, no gallop, no JVD, + tachycardia Abdomen/GI: normal bowel sounds, soft, + tenderness Back: normal inspection, no CVA tenderness Extremities/Musculoskelatal: normal inspection, no calf tenderness, no pedal edema, normal range of motion Neurologic/Psych: + pertinent finding (CAbnnot cooperate with exam due to AMS/ lethargy - no overt motor deficits) Skin: normal color, warm/dry, no rash Diagnostics Laboratory Results Results Past 24 Hours Test 10/08/16 21:16 10/08/16 22:22 10/08/16 22:27 Range/Units Urine Color YELLOW Urine Appearance CLEAR CLEAR Urine pH 8.0 4.5-7.5 Urine Specific [place] 1.006 1.000-1.030 Urine Protein NEG NEG Urine Glucose (UA) NEG NEG Urine Ketones NEG NEG Urine Occult Blood NEG NEG Urine Nitrite NEG NEG Urine Bilirubin NEG NEG Urine Urobilinogen NEG NEG Urine Leukocyte Esterase MODERATE NEG Urine WBC (Auto) 5-10 0-5 /hpf Urine RBC (Auto) 0-4 0-4 /hpf Urine Hyaline Casts (Auto) 1-5 0-5 /lpf Urine Epithelial Cells (Auto) >30 0-5 /lpf Urine Bacteria (Auto) NEG NEG Urine Renal Epithelial Cells 0-5 /lpf White Blood Count 22.19 4.8-10.8 K/uL Red Blood Count 4.68 4.2-5.4 M/uL Hemoglobin 14.3 12.0-16.0 g/dL Hematocrit 40.6 37-47 % Mean Corpuscular Volume 86.8 80-100 fL Mean Corpuscular Hemoglobin 30.6 25-34 pg Mean Corpuscular Hemoglobin Concent 35.2 32-36 g/dl Platelet Count 262 130-400 K/uL Mean Platelet Volume 10.4 7.4-10.4 fL Neutrophils (%) (Auto) 91.0 % Lymphocytes (%) (Auto) 1.8 % Monocytes (%) (Auto) 6.1 % Eosinophils (%) (Auto) 0.0 % Basophils (%) (Auto) 0.1 % Neutrophils # (Auto) 20.19 1.4-6.5 K/uL Lymphocytes # (Auto) 0.39 1.2-3.4 K/uL Monocytes # (Auto) 1.35 0.11-0.59 K/uL Eosinophils # (Auto) 0.01 0-0.5 K/uL Basophils # (Auto) 0.02 0-0.2 K/uL RDW Standard Deviation 49.6 36.4-46.3 fL RDW Coefficient of Variation 15.7 11.5-14.5 % Immature Granulocyte % (Auto) 1.0 % Immature Granulocyte # (Auto) 0.23 0.00-0.02 K/uL Prothrombin Time 10.7 9.0-12.0 SECONDS Prothromb Time International Ratio 1.0 0.9-1.1 Activated Partial Thromboplast Time 23.8 21.0-31.0 SECONDS Partial Thromboplastin Ratio 0.9 Sodium Level 132 136-145 mmol/L Potassium Level 3.2 3.5-5.1 mmol/L Chloride Level 96 98-107 mmol/L Carbon Dioxide Level 25 21-32 mmol/L Anion Gap 11.0 3-11 mmol/L Blood Urea Nitrogen 15 7-18 mg/dl Creatinine 1.30 0.60-1.20 mg/dl Estimated GFR () 44.9 Estimated GFR (Non- 38.7 BUN/Creatinine Ratio 11.4 10-20 Random Glucose 146 70-99 mg/dl Calcium Level 9.3 8.5-10.1 mg/dl Total Bilirubin 2.4 0.2-1 mg/dl Aspartate Amino Transf (AST/SGOT) 920 15-37 U/L Alanine Aminotransferase (ALT/SGPT) 801 12-78 U/L Alkaline Phosphatase 377 45-117 U/L Troponin I < 0.015 0-0.045 ng/ml Total Protein 7.5 6.4-8.2 gm/dl Albumin 2.9 3.4-5.0 gm/dl Globulin 4.6 2.5-4.0 gm/dl Albumin/Globulin Ratio 0.6 0.9-2 Thyroid Stimulating Hormone (TSH) < 0.005 0.300-4.500 uIu/ml Bedside Lactic Acid Venous 2.99 0.90-1.70 mmol/L Microbiology Results 10/08/16 Blood Culture, Received Pending Diagnostic Radiology Abdominal ultrasound: Cholelithiasis, sludge, distention and wall thickening consistent with acute cholecystitis. Renal and pancreatic atrophy. CT head: No acute findings - encephalomalacia related to previous craniotomy - anterior, superior, L frontal EKG Sinus tach, 1st degree AV, normal axis, LVH, PACs - no evidence of ischemia Impression Assessment and Plan 81 y/o F w/Hx panhypopituitarism, HTN, HPL, recurrent UTIs, renal calculi, DM. Brought in by family after becoming briefly unresponsive at home. Per family, this has occurred previously when the pt developed an infection. The family reports that she has become progressively weak over the past few days and had been c/o RUQ pain as well. She was scheduled for an outpt ultrasound as she has known gallstones. She has leukocytosis, an elevated lactic acid and elevated LFTs. An abdominal ultrasound is consistent with acute cholecystitis. It is noted that she is currently being treated for a UTI and her UA is marginally positive. 1) Acute cholecystitis - sepsis - she has multiple antibiotic allergies - she is receiving Aztreonam, Cubicin and Flagyl pending culture results and evaluation by ID. The ER attending discussed the case with surgery who have advised on GI evaluation for ERCP. The pt will be evaluated by both GI and surgery. We will obtain an AM echo as she is inactive and it is not possible to accurately gauge her surgical risk. She does not have any known cardiac risk factors however and her RCRI can be estimated at 0.9% based on available information. 2) Panhypopituitarism - we will start stress dose Hydrocortisone, cont Synthroid in IV form, provide IVF and cont Desmopressin as possible. She is mildly hyponatremic and hypokalemic on admission which will be corrected. 3) DM - placed on SS 4) UTI - was receiving a course of Cefuroxime - this is unlikely her primary issue at present although we will obtain cultures - this should be covered by the above antibiotics regardless. 5) Unresponsive episode - may have been due to orthostasis - will monitor on telemetry. Full code - confirmed with family Total time for this admission including review of labs, meds, EKG, imaging - discussion wit pt's family and ER attending - 46 min Level of Care Telemetry Resuscitation Status FULL RESUSCITATION VTE Prophylaxis VTE Risk Assessment Done? Y/N: Yes Risk Level: Moderate Given or contraindicated: Unfractionated heparin SQ
[2016-10-09] MEDS: NSS + 20MEQ KCL 1000ML 1,000 ML IV SCH ×2 (03:04→12:51)
[2016-10-09] MEDS: HYDROCORTISONE IV 50 MG in SYRINGE 0 ML IV SCH ×3 (03:05→18:12)
[2016-10-09] MEDS ORDERED: PATIENT'S HEIGHT AND/OR WEIGHT NEEDED SCH (04:30)
[2016-10-09] MEDS ORDERED: AZTREONAM CONSULT ACTIVE PRN ×2 (05:15)
[2016-10-09] MEDS: INSULIN ASPART 100 UNITS/ML 3 ML PEN SC SCH ×4 (06:16→23:54)
--- NOTE | 2016-10-09 07:06 | DIAGNOSTIC IMAGING REPORT ---
CT SCAN OF THE BRAIN WITHOUT IV CONTRAST CLINICAL HISTORY: Unresponsive. Change in mental status. COMPARISON STUDY: Prior head CT scans, most recently dated 04/13/2016. TECHNIQUE: Unenhanced axial CT scan of the brain is performed from the vertex to the skull base. The patient was scanned twice due to motion artifact. CT DOSE: 1074.96 mGy.cm FINDINGS: Brain parenchyma: There are age-related involutional changes noting moderate patchy subcortical and periventricular microangiopathic change. Bifrontal and left temporal encephalomalacia are similar to previous. There is no hemorrhage, mass effect, or evidence of acute territorial ischemia by CT criteria. 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 Tovar-white matter is preserved. No extra-axial fluid collection is seen. Dural thickening along the left convexity is likely related to postoperative change. Ventricles, sulci, cisterns: Prominent secondary to involutional change. Intracranial vasculature: There is atherosclerotic calcification of the cavernous carotid intervertebral arteries.. Calvarium: There are postoperative changes from bifrontal and left sided craniotomy. There is no evidence of depressed calvarial fracture. Sinuses and mastoids: The visualized paranasal sinuses are clear. The mastoid air cells are well pneumatized. Orbits: The bony orbits are grossly intact. There are bilateral ocular lens implants. IMPRESSION: Postoperative and senescent changes as above. There is no hemorrhage, mass effect, or evidence of acute territorial ischemia by CT criteria. Electronically signed by: Awais Miller M.D. 10/09/2016 7:04 AM Dictated Date/Time: 10/09/2016 7:00 AM
--- NOTE | 2016-10-09 07:08 | DIAGNOSTIC IMAGING REPORT ---
ULTRASOUND RIGHT UPPER QUADRANT ABDOMEN CLINICAL HISTORY: Right upper quadrant abdominal pain. COMPARISON STUDY: Abdominal CT dated 04/13/2016. TECHNIQUE: Real-time, grayscale, and color flow sonography of the right upper quadrant of the abdomen was performed. Images are reviewed in the transverse and longitudinal planes. FINDINGS: Liver: The liver is normal in size and slightly heterogeneous in echotexture. There is no intrahepatic biliary ductal dilatation. The main portal vein is patent. Gallbladder: The gallbladder is distended. Calcified shadowing gallstones are identified. The gallbladder wall is mildly thickened measuring up to 3 mm. No pericholecystic fluid is seen. A sonographic Lujan's sign could not be assessed. The common bile duct measures up to 0.4 cm in diameter. Pancreas: Visualized portions of the pancreatic head and body are normal in appearance. The splenic vein is patent. Right kidney: Survey images of the right kidney demonstrate cortical atrophy. There is no hydronephrosis. A 1.6 cm cyst is noted in the interpolar region. Ascites: None. IMPRESSION: 1. Cholelithiasis with a distended and mildly thick-walled gallbladder. Findings are concerning for acute cholecystitis. Clinical correlation will be required. Consider nuclear hepatobiliary scan for further assessment. 2. There is no intra or extrahepatic biliary ductal dilatation. Electronically signed by: Awais Miller M.D. 10/09/2016 7:07 AM Dictated Date/Time: 10/09/2016 7:05 AM
--- NOTE | 2016-10-09 07:43 | Gastrointestinal Consultation ---
Gastrointestinal Consultation Date of Consultation: Oct 09, 2016 Attending Physician: Shanice Consulting Physician: Ta Reason for Consultation: elevated LFTS, gallstones, ?ERCP History of Present Illness Patient is a 81 year old female w/ PMH significant for GERD, HTN, IBS, cervical fractures, hypothyroidism, seizure disorder, meningioma of the brain,CKD-3 and others listed below who presented through the ED after a unresponsive episode at home. HPI is gathered by Ms. Valencia as patient has poor memory recall. He tells me she has been having intermittent RUQ pain that radiated to her mid abdomen associated with nausea since Saturday. She was seen by her PCP yesterday who had ordered outpatient labs and US to be completed this AM. In the interim, her abdominal pain intensified, followed by a brief moment of altered mental status which her tells me is typically when she has an infection - they promptly brought her through the ED for evaluation. US + for gallstones and elevated LFTs. Started an ABX recently for a UTI - unable to tell me which medication, was not started in [facility]. HPI was limited. She denies abdominal pain but she does tell me shes cold. Past Medical/Surgical History Medical Problems: (1) Acute kidney injury Status: Acute (2) VERO (acute kidney injury) Status: Acute (3) Altered mental status Status: Acute (4) Altered mental status Status: Acute (5) Altered mental status Status: Acute (6) Altered mental status Status: Acute (7) Altered mental status Status: Acute (8) Ascending cholangitis Status: Acute (9) Atrial fibrillation Status: Acute (10) Dehydration Status: Acute (11) Dysarthria Status: Acute (12) Hearing voices Status: Acute (13) Hydronephrosis Status: Acute (14) Hydronephrosis Status: Acute (15) Kidney stone Status: Acute (16) Leukocytosis Status: Acute (17) Medication reaction Status: Acute (18) Nausea & vomiting Status: Acute (19) Pleural effusion Status: Acute (20) Right ureteral calculus Status: Acute (21) Sepsis Status: Acute (22) Sepsis Status: Acute (23) Urinary tract infection Status: Acute Past Medical History: Depression, GERD, Glaucoma, Hypercholesterolemia, panhypopituitarism, benign frontal meningioma, ICH, DI, adrenal insufficiency, hypothyroidism, Legal blindness, HTN, IBS, cervical fracture, unspecified seizure disorder Past Surgical History: removal of ovaries, removal of brain tumor w/ bone flap Family History Bladder cancer MOTHER Breast cancer SISTER FH: kidney disease FHx: heart disease Skin cancer MOTHER Social History Smoking Status: Former Smoker Alcohol Use: none Drug Use: none Marital Status: Housing Status: lives with family Occupation Status: retired Allergies Coded Allergies: Amoxicillin (Verified Allergy, Intermediate, Swelling of Lips, 09/04/16) Ciprofloxacin (Verified Allergy, Intermediate, RASH, NAUSEA, 09/04/16) Sulfa Antibiotics (Verified Allergy, Intermediate, RASH, 09/04/16) Biotin (Verified Allergy, Unknown, UNKN, 09/04/16) Cefepime (Verified Adverse Reaction, Severe, HALLUCINATIONS, 09/04/16) Diphenhydramine (Verified Adverse Reaction, Severe, HYPER INSOMNIA, ) Imipenem (Verified Adverse Reaction, Severe, HALLUCINATIONS, 09/04/16) Mirtazapine (Verified Adverse Reaction, Intermediate, altered mental status changes, 09/04/16) Nitrofurantoin (Verified Adverse Reaction, Intermediate, CHEST PAIN, CONFUSION, 09/04/16) Oxycodone (Verified Adverse Reaction, Mild, N/V, 09/04/16) Current Medications Home Meds and Scripts Medications Dose Route/Sig Max Daily Dose Days Date Category Dose Instructions [place] (Chlorthalidone) 25 Mg Tab 12.5 Mg PO DAILY 10/08/16 Reported Aspirin Ec (Aspirin) 81 Mg Tab 81 Mg PO DAILY 10/08/16 Reported Sf 5000 Plus (Sodium Fluoride (Dental)) 1.1 % Cre 1 Appln TOP BID 10/08/16 Reported Cefuroxime Axetil 500 Mg Tab 500 Mg PO BID 10/08/16 Reported Desmopressin Acetate 0.1 Mg Tab 0.1 Mg PO D 10/08/16 Reported Multivitamin (Multivitamins) Tab 1 Tab PO DAILY 09/04/16 Reported Docusate Sodium 100 Mg Cap 100 Mg PO BID 08/07/16 Reported Nystatin (Nystatin (Topical)) 1 Pow Pow 1 Appln TOP UD 08/07/16 Reported [place] Nasal [place] (Saline) 0.65 % Spr 1 [place] N/A UD PRN 08/07/16 Reported Ammonium Lactate (Lactic Acid (Ammonium Lactate)) 12 % Lot 1 Appln TOP UD 08/07/16 Reported Basaglar Kwikpen (Insulin Glargine) 100 Unit/Ml Inj 13 Units SC HS 08/07/16 Reported Alendronate Sodium 70 Mg Tab 70 Mg PO WK 08/07/16 Reported TAKE THIS MEDICATION ONCE WEEKLY 30 TO 60 MINUTES PRIOR TO BREAKFAST OM AM EMPTY STOMACH. DO NOT LIE DOWN AFTER TAKING THIS MEDICATION. Levothyroxine Sodium 125 Mcg Tab 125 Mcg PO DAILY 08/07/16 Reported Potassium Chloride Er (Potassium Chloride Microencaps) 20 Meq Tab 20 Meq PO DAILY 08/07/16 Reported Cortef (Hydrocortisone) 10 Mg Tab 5 Mg PO UD 08/07/16 Reported TAKE HALF A TABET (5 MG) 8 HOURS AFTER MORNING DOSE Cortef (Hydrocortisone) 10 Mg Tab 15 Mg PO QAM 08/07/16 Reported Calcitriol 0.25 Mcg Cap 0.25 Mcg PO DAILY 08/07/16 Reported Latanoprost 37 Drops/2.5 Ml Soln 1 Drop OPB HS 08/07/16 Reported Vitamin D-3 (Cholecalciferol) 1,000 Unit Tab 1,000 Inter.unit PO DAILY 06/01/16 Reported Caltrate 600+D (Calcium Carbonate-Cholecalcife) 1 Tab Tab 1 Tab PO DAILY 03/29/16 Reported Align (Probiotic Product) 4 Mg Cap 1 Cap PO DAILY 03/29/16 Reported Systane Ultra (Polyethylene Glycol-Propylene) 1 [place] Leslie 1 Drop OP Q4-6 HRS 11/28/15 Reported Biofreeze (Menthol (Topical Analgesic)) Unknown Strength Gel 1 Appln TOP UD PRN 11/28/15 Reported APPLY PER PACKAGE DIRECTIONS Prilosec (Omeprazole) 20 Mg Cap 20 Mg PO DAILY 10/01/14 Reported Tylenol (Acetaminophen) 325 Mg Tab 650 Mg PO Q6H PRN 06/05/14 Reported Review of Systems Constitutional: + chills Physical Exam Date Time Temp Pulse Resp B/P (MAP) Pulse Ox O2 Delivery O2 Flow Rate FiO2 10/09/16 07:28 36.6 96 22 97/64 (75) 93 Room Air 10/09/16 04:00 Room Air 10/09/16 03:07 36.8 107 16 99/63 (75) 96 Room Air 10/09/16 02:00 36.6 110 18 110/94 (99) 94 Room Air 10/09/16 02:00 Room Air 10/09/16 01:34 106 20 100/50 95 Room Air 10/09/16 00:59 106 20 121/69 95 Room Air 10/09/16 00:18 100 20 117/57 98 Room Air 10/08/16 23:43 97 20 106/52 98 Room Air 10/08/16 23:23 100 20 95/65 93 Room Air 10/08/16 23:21 100 10/08/16 22:20 103 20 112/64 95 Room Air 10/08/16 21:42 96 Room Air 10/08/16 21:34 103 10/08/16 20:56 36.8 104 20 110/63 96 Room Air General Appearance: no apparent distress (pt appears lethargic, resting in bed , family at bedside) ENT: hearing grossly normal Neck: no adenopathy Respiratory/Chest: lungs clear, no respiratory distress Cardiovascular: regular rate, rhythm Abdomen: normal bowel sounds, soft, no organomegaly, + tenderness (withdrawl w / palpation of RUQ but she does not report pain when I ask) Neurologic/Psych: + pertinent finding (unable to assess) Skin: warm/dry, no rash Laboratory Results Last 24 Hours Test 10/08/16 21:16 10/08/16 22:22 10/08/16 22:27 10/09/16 06:01 Urine Color YELLOW Urine Appearance CLEAR Urine pH 8.0 Urine Specific [place] 1.006 Urine Protein NEG Urine Glucose (UA) NEG Urine Ketones NEG Urine Occult Blood NEG Urine Nitrite NEG Urine Bilirubin NEG Urine Urobilinogen NEG Urine Leukocyte Esterase MODERATE Urine WBC (Auto) 5-10 /hpf Urine RBC (Auto) 0-4 /hpf Urine Hyaline Casts (Auto) 1-5 /lpf Urine Epithelial Cells (Auto) >30 /lpf Urine Bacteria (Auto) NEG Urine Renal Epithelial Cells /lpf White Blood Count 22.19 K/uL Red Blood Count 4.68 M/uL Hemoglobin 14.3 g/dL Hematocrit 40.6 % Mean Corpuscular Volume 86.8 fL Mean Corpuscular Hemoglobin 30.6 pg Mean Corpuscular Hemoglobin Concent 35.2 g/dl Platelet Count 262 K/uL Mean Platelet Volume 10.4 fL Neutrophils (%) (Auto) 91.0 % Lymphocytes (%) (Auto) 1.8 % Monocytes (%) (Auto) 6.1 % Eosinophils (%) (Auto) 0.0 % Basophils (%) (Auto) 0.1 % Neutrophils # (Auto) 20.19 K/uL Lymphocytes # (Auto) 0.39 K/uL Monocytes # (Auto) 1.35 K/uL Eosinophils # (Auto) 0.01 K/uL Basophils # (Auto) 0.02 K/uL RDW Standard Deviation 49.6 fL RDW Coefficient of Variation 15.7 % Immature Granulocyte % (Auto) 1.0 % Immature Granulocyte # (Auto) 0.23 K/uL Prothrombin Time 10.7 SECONDS Prothromb Time International Ratio 1.0 Activated Partial Thromboplast Time 23.8 SECONDS Partial Thromboplastin Ratio 0.9 Sodium Level 132 mmol/L Potassium Level 3.2 mmol/L Chloride Level 96 mmol/L Carbon Dioxide Level 25 mmol/L Anion Gap 11.0 mmol/L Blood Urea Nitrogen 15 mg/dl Creatinine 1.30 mg/dl Estimated GFR () 44.9 Estimated GFR (Non- 38.7 BUN/Creatinine Ratio 11.4 Random Glucose 146 mg/dl Calcium Level 9.3 mg/dl Total Bilirubin 2.4 mg/dl Aspartate Amino Transf (AST/SGOT) 920 U/L Alanine Aminotransferase (ALT/SGPT) 801 U/L Alkaline Phosphatase 377 U/L Troponin I < 0.015 ng/ml Total Protein 7.5 gm/dl Albumin 2.9 gm/dl Globulin 4.6 gm/dl Albumin/Globulin Ratio 0.6 Thyroid Stimulating Hormone (TSH) < 0.005 uIu/ml Bedside Lactic Acid Venous 2.99 mmol/L Bedside Glucose 163 mg/dl Test 10/09/16 06:54 Impression Patient is a 81 year old female with elevated LFTs (appear to be obstructive) with gallstones on recent imaging with reports of intermittent RUQ abdominal pain and nausea. White count is significantly elevated. Differentials include cholangitis secondary to choledocholithiasis with ? of a drug induced liver injury related to new ABX as outpatient. Plan Broad spectrum ABX coverage for cholangitis NPO EUS/ERCP with Dr. Chappell Continue symptomatic management Surgery evaluation --> ? cholecystectomy I have seen and evaluated the patient. She presented with alteration of her Mental Status, elevated liver enzymes and a picture concerning for underlying cholangitis. Given the scenario we will proceed directly to ERCP for biliary decompression today. I have discussed the risks to include bleeding, infection , perforation, pancreatitis, and failed biliary cannulation. PE: mild icterus, RUQ tender to palapation. Impression: symptoms and presentation concerning for cholangitis Plan ERCP today Indocin 100 mg NV continue broad spectrum abx coverage
[2016-10-09] MEDS: DESMOPRESSIN ACETATE 0.1 MG TAB PO SCH (07:55)
[2016-10-09] MEDS: CALCITRIOL 0.25 MCG CAP PO SCH (07:55)
[2016-10-09] MEDS: METRONIDAZOLE / NSS 500 MG in PREMIXED NSS 100 ML IV SCH ×3 (07:56→23:15)
[2016-10-09] MEDS: LEVOTHYROXINE SODIUM INJ 62.5 MCG in SYRINGE 0 ML IV SCH (08:32)
[2016-10-09] MEDS ORDERED: LEVOTHYROXINE SODIUM 20 MCG/1 ML IM SCH (09:00)
[2016-10-09] MEDS: AZTREONAM IV 1,000 MG in DEXTROSE 5% 100ML 100 ML IV SCH ×2 (09:06→17:09)
--- NOTE | 2016-10-09 10:07 | Medical Consult ---
Consultation Date of Consultation: Oct 09, 2016. Attending Physician: Primo Prasad M.D. Reason for Consultation: Restricted abx History of Present Illness Patient is an 81-year-old female well known to myself and the Infectious Diseases Service for history of recurrent urinary tract infections who presented to the emergency department via EMS with complaints of unresponsive episode in the bathroom prior to arrival. The patient states that she has been feeling poorly for the past few days. Her history is somewhat unreliable due to lethargy and mild confusion. Her states that she has been feeling weak and ill for multiple days. The patient does have history of gall stones and recurrent UTI as previously mentioned. She has not been having an appetite , and she has been complaining of mild abdominal pain over the past few days. Since admission, the patient did have a gallbladder ultrasound which showed cholelithiasis with a distended and mildly thickened wall of the gallbladder concerning for acute cholecystitis. A head CT scan showed no acute changes. Chest x-ray also showed no acute changes. Blood culture is pending. The patient's white blood cell count on admission was 22.19. LFTs were markedly elevated with an AST of 920, ALT of 801, and alkaline phosphatase of 377. Her lactic acid on admission was 2.99, and her total bilirubin was 2.4. Urinalysis showed moderate leukocyte esterase and 5-10 white blood cells, but was overall unremarkable. The patient was placed initially on IV daptomycin, aztreonam, and Flagyl. I did discuss this patient with Dr. Matos as well. Past Medical/Surgical History Medical Problems: (1) Acute kidney injury Status: Acute (2) VERO (acute kidney injury) Status: Acute (3) Altered mental status Status: Acute (4) Altered mental status Status: Acute (5) Altered mental status Status: Acute (6) Altered mental status Status: Acute (7) Altered mental status Status: Acute (8) Ascending cholangitis Status: Acute (9) Atrial fibrillation Status: Acute (10) Dehydration Status: Acute (11) Dysarthria Status: Acute (12) Hearing voices Status: Acute (13) Hydronephrosis Status: Acute (14) Hydronephrosis Status: Acute (15) Kidney stone Status: Acute (16) Leukocytosis Status: Acute (17) Medication reaction Status: Acute (18) Nausea & vomiting Status: Acute (19) Pleural effusion Status: Acute (20) Right ureteral calculus Status: Acute (21) Sepsis Status: Acute (22) Sepsis Status: Acute (23) Urinary tract infection Status: Acute Medical Problems: (1) Abnormal liver enzymes (2) Acute cholecystitis (3) Depression (4) Diabetes insipidus (5) GERD (gastroesophageal reflux disease) (6) Glaucoma (7) Hypercholesteremia (8) Metabolic encephalopathy (9) NSTEMI, initial episode of care (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 (11) Sepsis (12) Ureterolithiasis (13) UTI (urinary tract infection) Family History Bladder cancer MOTHER Breast cancer SISTER FH: kidney disease FHx: heart disease Skin cancer MOTHER Noncontributory Social History Smoking Status: Former Smoker Drug Use: none Marital Status: Housing Status: lives with family Occupation Status: retired Allergies Coded Allergies: Amoxicillin (Verified Allergy, Intermediate, Swelling of Lips, 09/04/16) Ciprofloxacin (Verified Allergy, Intermediate, RASH, NAUSEA, 09/04/16) Sulfa Antibiotics (Verified Allergy, Intermediate, RASH, 09/04/16) Biotin (Verified Allergy, Unknown, UNKN, 09/04/16) Cefepime (Verified Adverse Reaction, Severe, HALLUCINATIONS, 09/04/16) Diphenhydramine (Verified Adverse Reaction, Severe, HYPER INSOMNIA, ) Imipenem (Verified Adverse Reaction, Severe, HALLUCINATIONS, 09/04/16) Mirtazapine (Verified Adverse Reaction, Intermediate, altered mental status changes, 09/04/16) Nitrofurantoin (Verified Adverse Reaction, Intermediate, CHEST PAIN, CONFUSION, 09/04/16) Oxycodone (Verified Adverse Reaction, Mild, N/V, 09/04/16) Home Medications Reported Home Medications Medications Dose Route/Sig Max Daily Dose Days Date Category Dose Instructions [place] (Chlorthalidone) 25 Mg Tab 12.5 Mg PO DAILY 10/08/16 Reported Aspirin Ec (Aspirin) 81 Mg Tab 81 Mg PO DAILY 10/08/16 Reported Sf 5000 Plus (Sodium Fluoride (Dental)) 1.1 % Cre 1 Appln TOP BID 10/08/16 Reported Cefuroxime Axetil 500 Mg Tab 500 Mg PO BID 10/08/16 Reported Desmopressin Acetate 0.1 Mg Tab 0.1 Mg PO D 10/08/16 Reported Multivitamin (Multivitamins) Tab 1 Tab PO DAILY 09/04/16 Reported Docusate Sodium 100 Mg Cap 100 Mg PO BID 08/07/16 Reported Nystatin (Nystatin (Topical)) 1 Pow Pow 1 Appln TOP UD 08/07/16 Reported [place] Nasal [place] (Saline) 0.65 % Spr 1 [place] N/A UD PRN 08/07/16 Reported Ammonium Lactate (Lactic Acid (Ammonium Lactate)) 12 % Lot 1 Appln TOP UD 08/07/16 Reported Basaglar Kwikpen (Insulin Glargine) 100 Unit/Ml Inj 13 Units SC HS 08/07/16 Reported Alendronate Sodium 70 Mg Tab 70 Mg PO WK 08/07/16 Reported TAKE THIS MEDICATION ONCE WEEKLY 30 TO 60 MINUTES PRIOR TO BREAKFAST OM AM EMPTY STOMACH. DO NOT LIE DOWN AFTER TAKING THIS MEDICATION. Levothyroxine Sodium 125 Mcg Tab 125 Mcg PO DAILY 08/07/16 Reported Potassium Chloride Er (Potassium Chloride Microencaps) 20 Meq Tab 20 Meq PO DAILY 08/07/16 Reported Cortef (Hydrocortisone) 10 Mg Tab 5 Mg PO UD 08/07/16 Reported TAKE HALF A TABET (5 MG) 8 HOURS AFTER MORNING DOSE Cortef (Hydrocortisone) 10 Mg Tab 15 Mg PO QAM 08/07/16 Reported Calcitriol 0.25 Mcg Cap 0.25 Mcg PO DAILY 08/07/16 Reported Latanoprost 37 Drops/2.5 Ml Soln 1 Drop OPB HS 08/07/16 Reported Vitamin D-3 (Cholecalciferol) 1,000 Unit Tab 1,000 Inter.unit PO DAILY 06/01/16 Reported Caltrate 600+D (Calcium Carbonate-Cholecalcife) 1 Tab Tab 1 Tab PO DAILY 03/29/16 Reported Align (Probiotic Product) 4 Mg Cap 1 Cap PO DAILY 03/29/16 Reported Systane Ultra (Polyethylene Glycol-Propylene) 1 Leslie Leslie 1 Drop OP Q4-6 HRS 11/28/15 Reported Biofreeze (Menthol (Topical Analgesic)) Unknown Strength Gel 1 Appln TOP UD PRN 11/28/15 Reported APPLY PER PACKAGE DIRECTIONS Prilosec (Omeprazole) 20 Mg Cap 20 Mg PO DAILY 10/01/14 Reported Tylenol (Acetaminophen) 325 Mg Tab 650 Mg PO Q6H PRN 06/05/14 Reported Current Inpatient Medications Current Inpatient Medications Medications (Trade) Dose Ordered Sig/Natalee Route Start Time Stop Time Status Last Admin Dose Admin Metronidazole 500 mg/Prmx 100 ml @ 100 mls/hr Q8H IV 10/09/16 08:00 10/19/16 07:59 10/09/16 07:56 100 MLS/HR Aztreonam 1000 mg/ Dextrose 110 ml @ 100 mls/hr Q8H IV 10/09/16 10:00 10/19/16 09:59 10/09/16 09:06 100 MLS/HR Daptomycin 350 mg/ Sodium Chloride 57 ml @ 100 mls/hr Q24H IV 10/09/16 23:00 10/19/16 22:59 Potassium Chloride/Sodium Chloride 1,000 ml @ 100 mls/hr Q10H IV 10/09/16 02:30 10/09/16 22:29 10/09/16 03:04 100 MLS/HR Calcitriol (Rocaltrol Cap) 0.25 mcg DAILY PO 10/09/16 09:00 11/08/16 08:59 Latanoprost (Xalatan Oph Soln) 1 drops HS OPB 10/09/16 21:00 11/08/16 20:59 Artificial Tears (Artificial Tears) 1 drops Q4H PRN OP 10/09/16 01:15 11/08/16 01:14 Desmopressin Acetate (Desmopressin Acetate) 0.1 mg DAILY PO 10/09/16 09:00 11/08/16 08:59 Hydrocortisone Sodium Succinate 50 mg/Syringe 1 ml @ 4 mls/min Q8H IV 10/09/16 03:00 11/08/16 02:59 10/09/16 03:05 4 MLS/MIN Insulin Aspart (novoLOG ASPART) SLIDING SCALE G... Q6 SC 10/09/16 06:00 11/08/16 05:59 10/09/16 06:16 1 UNITS Levothyroxine Sodium 62.5 mcg/ Syringe 3.125 ml @ 1.563 mls/ min DAILY@09 IV 10/09/16 09:00 11/08/16 08:59 10/09/16 08:32 1.563 MLS/MIN Aztreonam (Consult) 1 ea UD PRN N/A 10/09/16 05:15 11/08/16 05:14 Review of Systems Constitutional: + chills, + weakness, + fatigue, No fever Eyes: No worsening of vision ENT: No hearing loss Respiratory: No cough, No shortness of breath Cardiovascular: No chest pain Abdomen: + pain, + nausea Musculoskeletal: No joint pain Genitourinary - Female: No dysuria, No urinary frequency, No urinary urgency Integumentary: No rash, No itch, No new/changing skin lesions Physical Exam Date Time Temp Pulse Resp B/P (MAP) Pulse Ox O2 Delivery O2 Flow Rate FiO2 10/09/16 08:00 Room Air 10/09/16 07:28 36.6 96 22 97/64 (75) 93 Room Air 10/09/16 04:00 Room Air 10/09/16 03:07 36.8 107 16 99/63 (75) 96 Room Air 10/09/16 02:00 36.6 110 18 110/94 (99) 94 Room Air 10/09/16 02:00 Room Air 10/09/16 01:34 106 20 100/50 95 Room Air 10/09/16 00:59 106 20 121/69 95 Room Air 10/09/16 00:18 100 20 117/57 98 Room Air 10/08/16 23:43 97 20 106/52 98 Room Air 10/08/16 23:23 100 20 95/65 93 Room Air 10/08/16 23:21 100 10/08/16 22:20 103 20 112/64 95 Room Air 10/08/16 21:42 96 Room Air 10/08/16 21:34 103 10/08/16 20:56 36.8 104 20 110/63 96 Room Air General Appearance: + mild distress, + obese Head: normocephalic, atraumatic Eyes: normal inspection, sclerae normal ENT: hearing grossly normal Neck: supple, trachea midline Respiratory/Chest: chest non-tender, no respiratory distress, no accessory muscle use, + decreased breath sounds (throughout) Cardiovascular: regular rate, rhythm Abdomen/GI: normal bowel sounds Extremities/Musculoskelatal: normal inspection, no pedal edema Neurologic/Psych: + pertinent finding (lethargic, slightly disoriented) Skin: normal color, warm/dry, no rash Laboratory Results ULTRASOUND RIGHT UPPER QUADRANT ABDOMEN CLINICAL HISTORY: Right upper quadrant abdominal pain. COMPARISON STUDY: Abdominal CT dated 04/13/2016. TECHNIQUE: Real-time, grayscale, and color flow sonography of the right upper quadrant of the abdomen was performed. Images are reviewed in the transverse and longitudinal planes. FINDINGS: Liver: The liver is normal in size and slightly heterogeneous in echotexture. There is no intrahepatic biliary ductal dilatation. The main portal vein is patent. Gallbladder: The gallbladder is distended. Calcified shadowing gallstones are identified. The gallbladder wall is mildly thickened measuring up to 3 mm. No pericholecystic fluid is seen. A sonographic Lujan's sign could not be assessed. The common bile duct measures up to 0.4 cm in diameter. Pancreas: Visualized portions of the pancreatic head and body are normal in appearance. The splenic vein is patent. Right kidney: Survey images of the right kidney demonstrate cortical atrophy. There is no hydronephrosis. A 1.6 cm cyst is noted in the interpolar region. Ascites: None. IMPRESSION: 1. Cholelithiasis with a distended and mildly thick-walled gallbladder. Findings are concerning for acute cholecystitis. Clinical correlation will be required. Consider nuclear hepatobiliary scan for further assessment. 2. There is no intra or extrahepatic biliary ductal dilatation. Item Value Date Time Blood Culture Received 10/08/162 Blood Pending Last 24 Hours Test 10/08/16 21:16 10/08/16 22:22 10/08/16 22:27 10/09/16 06:01 Urine Color YELLOW Urine Appearance CLEAR Urine pH 8.0 Urine Specific [place] 1.006 Urine Protein NEG Urine Glucose (UA) NEG Urine Ketones NEG Urine Occult Blood NEG Urine Nitrite NEG Urine Bilirubin NEG Urine Urobilinogen NEG Urine Leukocyte Esterase MODERATE Urine WBC (Auto) 5-10 /hpf Urine RBC (Auto) 0-4 /hpf Urine Hyaline Casts (Auto) 1-5 /lpf Urine Epithelial Cells (Auto) >30 /lpf Urine Bacteria (Auto) NEG Urine Renal Epithelial Cells /lpf White Blood Count 22.19 K/uL Red Blood Count 4.68 M/uL Hemoglobin 14.3 g/dL Hematocrit 40.6 % Mean Corpuscular Volume 86.8 fL Mean Corpuscular Hemoglobin 30.6 pg Mean Corpuscular Hemoglobin Concent 35.2 g/dl Platelet Count 262 K/uL Mean Platelet Volume 10.4 fL Neutrophils (%) (Auto) 91.0 % Lymphocytes (%) (Auto) 1.8 % Monocytes (%) (Auto) 6.1 % Eosinophils (%) (Auto) 0.0 % Basophils (%) (Auto) 0.1 % Neutrophils # (Auto) 20.19 K/uL Lymphocytes # (Auto) 0.39 K/uL Monocytes # (Auto) 1.35 K/uL Eosinophils # (Auto) 0.01 K/uL Basophils # (Auto) 0.02 K/uL RDW Standard Deviation 49.6 fL RDW Coefficient of Variation 15.7 % Immature Granulocyte % (Auto) 1.0 % Immature Granulocyte # (Auto) 0.23 K/uL Prothrombin Time 10.7 SECONDS Prothromb Time International Ratio 1.0 Activated Partial Thromboplast Time 23.8 SECONDS Partial Thromboplastin Ratio 0.9 Sodium Level 132 mmol/L Potassium Level 3.2 mmol/L Chloride Level 96 mmol/L Carbon Dioxide Level 25 mmol/L Anion Gap 11.0 mmol/L Blood Urea Nitrogen 15 mg/dl Creatinine 1.30 mg/dl Estimated GFR () 44.9 Estimated GFR (Non- 38.7 BUN/Creatinine Ratio 11.4 Random Glucose 146 mg/dl Calcium Level 9.3 mg/dl Total Bilirubin 2.4 mg/dl Aspartate Amino Transf (AST/SGOT) 920 U/L Alanine Aminotransferase (ALT/SGPT) 801 U/L Alkaline Phosphatase 377 U/L Troponin I < 0.015 ng/ml Total Protein 7.5 gm/dl Albumin 2.9 gm/dl Globulin 4.6 gm/dl Albumin/Globulin Ratio 0.6 Thyroid Stimulating Hormone (TSH) < 0.005 uIu/ml Bedside Lactic Acid Venous 2.99 mmol/L Bedside Glucose 163 mg/dl Test 10/09/16 06:54 Total Bilirubin 2.8 mg/dl Direct Bilirubin 2.3 mg/dl Aspartate Amino Transf (AST/SGOT) 576 U/L Alanine Aminotransferase (ALT/SGPT) 608 U/L Alkaline Phosphatase 306 U/L Total Protein 6.3 gm/dl Albumin 2.4 gm/dl Assessment & Plan Patient with elevated LFTs, probable acute cholecystitis with possible cholangitis in the setting of recurrent UTI. She is currently on IV Daptomycin, Flagyl, and Aztreonam. She is anticipated to have EUS/ERCP this afternoon by GI. With elevated LFT's, will check CK level as well and D/C Daptomycin. Will change to IV Vancomycin but continue IV Flagyl and Aztreonam otherwise. Blood culture is pending. We will continue to follow and continue abx pending improvement/further workup. Case reviewed and agree with above assessment.
[2016-10-09] MEDS ORDERED: MIDAZOLAM HCL 1 MG/ML 2ML VIAL ONE (10:13)
[2016-10-09] MEDS ORDERED: FENTANYL CITRATE INJ 50 MCG/1 ML 2 ML VIAL ONE (10:14)
[2016-10-09] MEDS ORDERED: VANCOMYCIN CONSULT ACTIVE PRN (10:15)
[2016-10-09] MEDS ORDERED: VANCOMYCIN INJ 2,000 MG in SODIUM CHLORIDE 0.9% 500ML 500 ML IV ONE (10:30)
[2016-10-09] MEDS ORDERED: INDOMETHACIN 50 MG SUPP PR ONE (10:45)
[2016-10-09] MEDS ORDERED: LACTATED RINGER'S 1000ML 1,000 ML IV PRN (10:47)
[2016-10-09] MEDS ORDERED: FENTANYL CITRATE INJ 50 MCG/1 ML 2 ML VIAL IV PRN (11:00)
[2016-10-09] MEDS ORDERED: ONDANSETRON INJ 2 MG/ML 2 ML VIAL IV PRN (11:00)
[2016-10-09] MEDS ORDERED: LIDOCAINE HCL 2% 2 ML VIAL (20MG/ML) ONE (11:18)
[2016-10-09] MEDS ORDERED: SUCCINYLCHOLINE 100MG/5ML SYR IV ONE (11:18)
[2016-10-09] MEDS ORDERED: PROPOFOL IV EMULSION 10 MG/ML 20 ML VIAL IV ONE (11:18)
--- NOTE | 2016-10-09 11:43 | Surgery Consultation ---
Consultation Date of Consultation: Oct 09, 2016. Attending Physician: Primo Prasad M.D. Reason for Consultation: Sepsis, Calculous Cholecystitis, Cholangitis? History of Present Illness Patient is a 81 year old female w/ PMH significant for GERD, HTN, IBS, cervical fractures, hypothyroidism, seizure disorder, meningioma of the brain,CKD-3, recurrent UTI who presented to the emergency department last evening after a unresponsive episode at home. THe history is mostly gathered from the at the bedside. States he has helpers for his on a dialy basis and they were getting her up from the bathroom in which she passed out. States she has alteration of her mental status when she has urinary tract infections which this was similar. He tells me she has been having intermittent RUQ pain that radiated to her mid abdomen associated with nausea. She was seen by her PCP yesterday who had ordered outpatient labs and US to be completed this AM. She was recently started an ABX for a UTI. She had an ultrasound which showed Cholelithiasis with a distended and mildly thick-walled gallbladder. Findings are concerning for acute cholecystitis. CBD measuring up to 0.4 cm. She had a leukocytosis of 22.19 on admission with elevated LFTS. Total bilirubin 2.4, AST 920, ALT 801, Alk PHos- 377. Lactic acid was also elevated at 2.99 She was started on broad spectrum antibiotics. She is scheduled for ERCP/EUS today with Dr. Chappell. Past Medical/Surgical History Medical Problems: (1) Acute kidney injury Status: Acute (2) VERO (acute kidney injury) Status: Acute (3) Altered mental status Status: Acute (4) Altered mental status Status: Acute (5) Altered mental status Status: Acute (6) Altered mental status Status: Acute (7) Altered mental status Status: Acute (8) Ascending cholangitis Status: Acute (9) Atrial fibrillation Status: Acute (10) Dehydration Status: Acute (11) Dysarthria Status: Acute (12) Hearing voices Status: Acute (13) Hydronephrosis Status: Acute (14) Hydronephrosis Status: Acute (15) Kidney stone Status: Acute (16) Leukocytosis Status: Acute (17) Medication reaction Status: Acute (18) Nausea & vomiting Status: Acute (19) Pleural effusion Status: Acute (20) Right ureteral calculus Status: Acute (21) Sepsis Status: Acute (22) Sepsis Status: Acute (23) Urinary tract infection Status: Acute Family History Bladder cancer MOTHER Breast cancer SISTER FH: kidney disease FHx: heart disease Skin cancer MOTHER Social History Smoking Status: Former Smoker Drug Use: none Marital Status: Housing Status: lives with family Occupation Status: retired Allergies Coded Allergies: Amoxicillin (Verified Allergy, Intermediate, Swelling of Lips, 09/04/16) Ciprofloxacin (Verified Allergy, Intermediate, RASH, NAUSEA, 09/04/16) Sulfa Antibiotics (Verified Allergy, Intermediate, RASH, 09/04/16) Biotin (Verified Allergy, Unknown, UNKN, 09/04/16) Cefepime (Verified Adverse Reaction, Severe, HALLUCINATIONS, 09/04/16) Diphenhydramine (Verified Adverse Reaction, Severe, HYPER INSOMNIA, ) Imipenem (Verified Adverse Reaction, Severe, HALLUCINATIONS, 09/04/16) Mirtazapine (Verified Adverse Reaction, Intermediate, altered mental status changes, 09/04/16) Nitrofurantoin (Verified Adverse Reaction, Intermediate, CHEST PAIN, CONFUSION, 09/04/16) Oxycodone (Verified Adverse Reaction, Mild, N/V, 09/04/16) Home Medications Scheduled Alendronate Sodium (Alendronate Sodium), 70 MG PO WK Aspirin (Aspirin Ec), 81 MG PO DAILY Calcitriol (Calcitriol), 0.25 MCG PO DAILY Calcium Carbonate-Cholecalcife (Caltrate 600+D), 1 TAB PO DAILY Cefuroxime Axetil (Cefuroxime Axetil), 500 MG PO BID Chlorthalidone (Hygroton), 12.5 MG PO DAILY Cholecalciferol (Vitamin D-3), 1,000 INTER.UNIT PO DAILY Desmopressin Acetate (Desmopressin Acetate), 0.1 MG PO D Docusate Sodium (Docusate Sodium), 100 MG PO BID Hydrocortisone (Cortef), 15 MG PO QAM Hydrocortisone (Cortef), 5 MG PO UD Insulin Glargine (Basaglar Kwikpen), 13 UNITS SC HS Lactic Acid (Ammonium Lactate) (Ammonium Lactate), 1 APPLN TOP UD Latanoprost (Latanoprost), 1 DROP OPB HS Levothyroxine Sodium (Levothyroxine Sodium), 125 MCG PO DAILY Multivitamin (Multivitamin), 1 TAB PO DAILY Nystatin (Topical) (Nystatin), 1 APPLN TOP UD Omeprazole (Prilosec), 20 MG PO DAILY Polyethylene Glycol-Propylene (Systane Ultra), 1 DROP OP Q4-6 HRS Potassium Chloride Microencaps (Potassium Chloride Er), 20 MEQ PO DAILY Probiotic Product (Align), 1 CAP PO DAILY Sodium Fluoride (Dental) (Sf 5000 Plus), 1 APPLN TOP BID Scheduled PRN Acetaminophen (Tylenol), 650 MG PO Q6H PRN for Pain Menthol (Topical Analgesic) (Biofreeze), 1 APPLN TOP UD PRN for Pain Saline (Jerome Nasal Sedan), 1 SPRAY N/A UD PRN for Nasal Congestion Current Inpatient Medications Current Inpatient Medications Medications (Trade) Dose Ordered Sig/Natalee Route Start Time Stop Time Status Last Admin Dose Admin Metronidazole 500 mg/Prmx 100 ml @ 100 mls/hr Q8H IV 10/09/16 08:00 10/19/16 07:59 10/09/16 07:56 100 MLS/HR Aztreonam 1000 mg/ Dextrose 110 ml @ 100 mls/hr Q8H IV 10/09/16 10:00 10/19/16 09:59 10/09/16 09:06 100 MLS/HR Potassium Chloride/Sodium Chloride 1,000 ml @ 100 mls/hr Q10H IV 10/09/16 02:30 10/09/16 22:29 10/09/16 03:04 100 MLS/HR Calcitriol (Rocaltrol Cap) 0.25 mcg DAILY PO 10/09/16 09:00 11/08/16 08:59 Latanoprost (Xalatan Oph Soln) 1 drops HS OPB 10/09/16 21:00 11/08/16 20:59 Artificial Tears (Artificial Tears) 1 drops Q4H PRN OP 10/09/16 01:15 11/08/16 01:14 Desmopressin Acetate (Desmopressin Acetate) 0.1 mg DAILY PO 10/09/16 09:00 11/08/16 08:59 Hydrocortisone Sodium Succinate 50 mg/Syringe 1 ml @ 4 mls/min Q8H IV 10/09/16 03:00 11/08/16 02:59 10/09/16 03:05 4 MLS/MIN Insulin Aspart (novoLOG ASPART) SLIDING SCALE G... Q6 SC 10/09/16 06:00 11/08/16 05:59 10/09/16 06:16 1 UNITS Levothyroxine Sodium 62.5 mcg/ Syringe 3.125 ml @ 1.563 mls/ min DAILY@09 IV 10/09/16 09:00 11/08/16 08:59 10/09/16 08:32 1.563 MLS/MIN Aztreonam (Consult) 1 ea UD PRN N/A 10/09/16 05:15 11/08/16 05:14 Vancomycin HCl 1200 mg/Sodium Chloride 274 ml @ 125 mls/hr Q18H IV 10/10/16 08:00 10/20/16 07:59 UNV Vancomycin HCl (Consult) 1 ea UD PRN N/A 10/09/16 10:15 11/08/16 10:14 Vancomycin HCl 2000 mg/Sodium Chloride 540 ml @ 200 mls/hr TODAY@1030 ONCE IV 10/09/16 10:30 10/09/16 13:11 Fentanyl Citrate (Fentanyl Inj) 25 mcg Q5M PRN IV 10/09/16 11:00 10/09/16 16:00 Ondansetron HCl (Zofran Inj) 4 mg ONE PRN IV 10/09/16 11:00 10/09/16 16:00 Lactated Ringer's 1,000 ml @ 120 mls/hr Q8H20M PRN IV 10/09/16 10:47 10/09/16 16:00 Review of Systems Constitutional: + weakness, + problem reported (syncope) Abdomen: + pain (RUQ pain), + nausea Genitourinary - Female: + dysuria, + urinary frequency, + problem reported ( recurrent UTI) Neurologic: + memory loss Integumentary: No rash Physical Exam Date Time Temp Pulse Resp B/P (MAP) Pulse Ox O2 Delivery O2 Flow Rate FiO2 10/09/16 08:00 Room Air 10/09/16 07:28 36.6 96 22 97/64 (75) 93 Room Air 10/09/16 04:00 Room Air 10/09/16 03:07 36.8 107 16 99/63 (75) 96 Room Air 10/09/16 02:00 36.6 110 18 110/94 (99) 94 Room Air 10/09/16 02:00 Room Air 10/09/16 01:34 106 20 100/50 95 Room Air 10/09/16 00:59 106 20 121/69 95 Room Air 10/09/16 00:18 100 20 117/57 98 Room Air 10/08/16 23:43 97 20 106/52 98 Room Air 10/08/16 23:23 100 20 95/65 93 Room Air 10/08/16 23:21 100 10/08/16 22:20 103 20 112/64 95 Room Air 10/08/16 21:42 96 Room Air 10/08/16 21:34 103 10/08/16 20:56 36.8 104 20 110/63 96 Room Air General Appearance: no apparent distress, + pertinent finding (white female resting in bed, not very alert) Head: normocephalic, atraumatic Eyes: sclerae normal Respiratory/Chest: no respiratory distress, no accessory muscle use Cardiovascular: regular rate, rhythm, no murmur Abdomen/GI: non tender, soft, no organomegaly, no pulsatile mass Skin: normal color, warm/dry, no rash Laboratory Results Last 24 Hours Test 10/08/16 21:16 10/08/16 22:22 10/08/16 22:27 10/09/16 06:01 Urine Color YELLOW Urine Appearance CLEAR Urine pH 8.0 Urine Specific [place] 1.006 Urine Protein NEG Urine Glucose (UA) NEG Urine Ketones NEG Urine Occult Blood NEG Urine Nitrite NEG Urine Bilirubin NEG Urine Urobilinogen NEG Urine Leukocyte Esterase MODERATE Urine WBC (Auto) 5-10 /hpf Urine RBC (Auto) 0-4 /hpf Urine Hyaline Casts (Auto) 1-5 /lpf Urine Epithelial Cells (Auto) >30 /lpf Urine Bacteria (Auto) NEG Urine Renal Epithelial Cells /lpf White Blood Count 22.19 K/uL Red Blood Count 4.68 M/uL Hemoglobin 14.3 g/dL Hematocrit 40.6 % Mean Corpuscular Volume 86.8 fL Mean Corpuscular Hemoglobin 30.6 pg Mean Corpuscular Hemoglobin Concent 35.2 g/dl Platelet Count 262 K/uL Mean Platelet Volume 10.4 fL Neutrophils (%) (Auto) 91.0 % Lymphocytes (%) (Auto) 1.8 % Monocytes (%) (Auto) 6.1 % Eosinophils (%) (Auto) 0.0 % Basophils (%) (Auto) 0.1 % Neutrophils # (Auto) 20.19 K/uL Lymphocytes # (Auto) 0.39 K/uL Monocytes # (Auto) 1.35 K/uL Eosinophils # (Auto) 0.01 K/uL Basophils # (Auto) 0.02 K/uL RDW Standard Deviation 49.6 fL RDW Coefficient of Variation 15.7 % Immature Granulocyte % (Auto) 1.0 % Immature Granulocyte # (Auto) 0.23 K/uL Prothrombin Time 10.7 SECONDS Prothromb Time International Ratio 1.0 Activated Partial Thromboplast Time 23.8 SECONDS Partial Thromboplastin Ratio 0.9 Sodium Level 132 mmol/L Potassium Level 3.2 mmol/L Chloride Level 96 mmol/L Carbon Dioxide Level 25 mmol/L Anion Gap 11.0 mmol/L Blood Urea Nitrogen 15 mg/dl Creatinine 1.30 mg/dl Estimated GFR () 44.9 Estimated GFR (Non- 38.7 BUN/Creatinine Ratio 11.4 Random Glucose 146 mg/dl Calcium Level 9.3 mg/dl Total Bilirubin 2.4 mg/dl Aspartate Amino Transf (AST/SGOT) 920 U/L Alanine Aminotransferase (ALT/SGPT) 801 U/L Alkaline Phosphatase 377 U/L Troponin I < 0.015 ng/ml Total Protein 7.5 gm/dl Albumin 2.9 gm/dl Globulin 4.6 gm/dl Albumin/Globulin Ratio 0.6 Thyroid Stimulating Hormone (TSH) < 0.005 uIu/ml Bedside Lactic Acid Venous 2.99 mmol/L Bedside Glucose 163 mg/dl Test 10/09/16 06:54 10/09/16 09:56 10/09/16 10:28 Total Bilirubin 2.8 mg/dl Direct Bilirubin 2.3 mg/dl Aspartate Amino Transf (AST/SGOT) 576 U/L Alanine Aminotransferase (ALT/SGPT) 608 U/L Alkaline Phosphatase 306 U/L Total Protein 6.3 gm/dl Albumin 2.4 gm/dl Bedside Glucose 202 mg/dl ULTRASOUND RIGHT UPPER QUADRANT ABDOMEN CLINICAL HISTORY: Right upper quadrant abdominal pain. COMPARISON STUDY: Abdominal CT dated 04/13/2016. TECHNIQUE: Real-time, grayscale, and color flow sonography of the right upper quadrant of the abdomen was performed. Images are reviewed in the transverse and longitudinal planes. FINDINGS: Liver: The liver is normal in size and slightly heterogeneous in echotexture. There is no intrahepatic biliary ductal dilatation. The main portal vein is patent. Gallbladder: The gallbladder is distended. Calcified shadowing gallstones are identified. The gallbladder wall is mildly thickened measuring up to 3 mm. No pericholecystic fluid is seen. A sonographic Lujan's sign could not be assessed. The common bile duct measures up to 0.4 cm in diameter. Pancreas: Visualized portions of the pancreatic head and body are normal in appearance. The splenic vein is patent. Right kidney: Survey images of the right kidney demonstrate cortical atrophy. There is no hydronephrosis. A 1.6 cm cyst is noted in the interpolar region. Ascites: None. IMPRESSION: 1. Cholelithiasis with a distended and mildly thick-walled gallbladder. Findings are concerning for acute cholecystitis. Clinical correlation will be required. Consider nuclear hepatobiliary scan for further assessment. 2. There is no intra or extrahepatic biliary ductal dilatation. Assessment & Plan Acute calculous Cholecystitis with concern for choledocholithiasis and cholangitis -leukocytosis of 22.19 - elevated total and direct bilirubin with elevated LFTS - abdominal pain in RUQ - US showing GB wall thickening and stones. - Hypotensive - altered mental status Plan: Patient is scheduled for ERCP/EUS today with Dr. Chappell Continue broad spectrum antibiotics Continue IV fluids Continue pain management as needed Will determine need for cholecystectomy after ERCP, possibly in 1-2 days to allow inflammation to go down and LFTs/Bilirubin to normalize will continue to follow Dr. Carter has seen and examined patient agrees with above
--- NOTE | 2016-10-09 12:06 | [facility] Post Operative Brief Note ---
Immediate Operative Summary Operative Date Oct 09, 2016. Pre-Operative Diagnosis Elevated liver enzymes, cholangitis Post-Operative Diagnosis CBD stones and Cholangitis Procedure(s) Performed Endoscopic Retrograde Cholangiopancreatogram with Stent Placement Surgeon Dr. Chappell [employer] Room Operator Surgeon(s) none Estimated Blood Loss none Findings CBD stones and Cholangitis Specimens none per surgeon Drains Biliary stent placed (internal) Anesthesia General Complication(s) None Disposition Recovery Room / PACU
--- NOTE | 2016-10-09 12:06 | GI REPORT ---
Procedure Date: 10/09/2016 10:58 AM Procedure: ERCP Indications: Abdominal pain of suspected biliary origin, Suspected ascending cholangitis Medicines: General Anesthesia, Indocin 100 mg SD Complications: No immediate complications. Estimated blood loss: Minimal. Estimated Blood Loss: Estimated blood loss was minimal. Procedure: Pre-Anesthesia Assessment: - Prior to the procedure, a History and Physical was performed, and patient medications, allergies and sensitivities were reviewed. The patient's tolerance of previous anesthesia was reviewed. - The patient is unable to give consent secondary to the patient's altered mental status. The alternatives, risks and benefits of the procedure were discussed at length with the patient's spouse. The patient's proxy verbalized understanding of the risks as well as the alternatives and wished to proceed with the procedure. - Patient identification and proposed procedure were verified prior to the procedure by the physician, the nurse and the tenant selector. The procedure was verified in the pre-procedure area in the procedure room. - Pre-procedure physical examination revealed no contraindications to sedation. - ASA Grade Assessment: IV - A patient with severe systemic disease that is a constant threat to life. - After reviewing the risks and benefits, the patient was deemed in satisfactory condition to undergo the procedure. - The anesthesia plan was to use general anesthesia. - Immediately prior to administration of medications, the patient was re-assessed for adequacy to receive sedatives. - The heart rate, respiratory rate, oxygen saturations, blood pressure, adequacy of pulmonary ventilation, and response to care were monitored throughout the procedure. - The physical status of the patient was re-assessed after the procedure. After obtaining informed consent, the scope was passed under direct vision. Throughout the procedure, the patient's blood pressure, pulse, and oxygen saturations were monitored continuously. The scope was introduced through the mouth, and advanced to the duodenum and used to inject contrast into the bile duct. The ERCP was accomplished without difficulty. The patient tolerated the procedure well. Findings: The machine tool operator film was normal. The esophagus was successfully intubated under direct vision. The scope was advanced to a normal major papilla in the descending duodenum without detailed examination of the pharynx, larynx and associated structures, and upper GI tract. The upper GI tract was grossly normal. The bile duct was deeply cannulated with the short-nosed traction sphincterotome (Omni 35) and 0.035 in Acrobat guidewire during the first attempt. Contrast was injected. I personally interpreted the bile duct images. Contrast extended to the hepatic ducts. The lower third of the main bile duct contained filling defect(s) thought to be a stone. The main bile duct was mildly dilated. The largest diameter was 8 mm. The biliary orifice was stenotic. This appeared benign. The gallbladder contained multiple stones. The 0.035 in guidewire was exchanged as it could not be passed easily into the upper biliary tree, we placed a 0.25 in Acrobat Guidewire with ease. Examination of the 0l35 in wire revealed it had frayed. Biliary sphincterotomy was made with a short-tip traction sphincterotome using ERBE electrocautery. There was no post-sphincterotomy bleeding. The lower third of the main bile duct was successfully dilated with an 8 mm balloon dilator. To discover objects, the biliary tree was swept with a 8.5 and 12 mm balloon starting at the bifurcation. Two dark stones were removed. No stones remained. Pus was swept from the duct. One 10 Fr by 8 cm biliary stent with a single external flap and a single internal flap was placed 8 cm into the common bile duct. Bile and pus flowed through the stent. The stent was in good position. The endoscope was withdrawn from the patient. Impression: - A filling defect consistent with a stone was seen on the cholangiogram. - The entire main bile duct was mildly dilated. - Biliary papillary stenosis, benign. - A sphincterotomy was performed. - The lower third of the main bile duct was successfully dilated - The biliary tree was swept and pus was found. Choledocholithiasis was also found. Complete removal was accomplished by biliary sphincterotomy and balloon extraction. - One biliary stent was placed into the common bile duct. Recommendation: - Avoid aspirin and nonsteroidal anti-inflammatory medicines for 5 days. - Clear liquid diet today. - Use broad spectrum antibiotics for 2 weeks. - Repeat ERCP in 6 weeks to remove stent. - Refer to a surgeon to determine if cholecystectomy can be performed. Brandon Chappell D.O. Brandon Chappell DO 10/09/2016 12:04:52 PM This report has been signed electronically. Note Initiated On: 10/09/2016 10:58 AM I attest to the content of the Intraoperative Record and orders documented therein, exceptions below
--- NOTE | 2016-10-09 12:10 | Medical Student: [facility] ---
Med Student Progress Note Date of Service Oct 09, 2016. Subjective Pt evaluation today including: conversation w/ patient, conversation w/ family , physical exam, chart review, lab review, review of studies, review of inpatient medication list Pain: No reported pain this AM PO Intake: NPO Family reports continued mildly altered mental status as of this AM, but Ms. Valencia did respond to some questions. She denied RUQ pain, fever, and chills. Review of Systems Constitutional: No fever, No chills ENT: No hearing loss Respiratory: No cough Cardiac: No chest pain Abdomen: No pain Female : + urinary frequency (current UTI) Psychiatric: + problem reported (altered mental status attributed to UTI and cholecystitis ) Endo: + fatigue Skin: No rash Objective Vital Signs Date Time Temp Pulse Resp B/P (MAP) Pulse Ox O2 Delivery O2 Flow Rate FiO2 10/09/16 08:00 Room Air 10/09/16 07:28 36.6 96 22 97/64 (75) 93 Room Air 10/09/16 04:00 Room Air 10/09/16 03:07 36.8 107 16 99/63 (75) 96 Room Air 10/09/16 02:00 36.6 110 18 110/94 (99) 94 Room Air 10/09/16 02:00 Room Air 10/09/16 01:34 106 20 100/50 95 Room Air 10/09/16 00:59 106 20 121/69 95 Room Air 10/09/16 00:18 100 20 117/57 98 Room Air 10/08/16 23:43 97 20 106/52 98 Room Air 10/08/16 23:23 100 20 95/65 93 Room Air 10/08/16 23:21 100 10/08/16 22:20 103 20 112/64 95 Room Air 10/08/16 21:42 96 Room Air 10/08/16 21:34 103 10/08/16 20:56 36.8 104 20 110/63 96 Room Air Physical Exam General Appearance: WD/WN Eyes: bilateral eyes normal inspection Neck: no adenopathy Respiratory/Chest: lungs clear Cardiovascular: regular rate, rhythm, no edema, no murmur Abdomen: normal bowel sounds, + pertinent finding (intermittant RUQ pain) Extremities: normal inspection, no pedal edema, normal capillary refill Neurologic/Psychiatric: + disoriented, + pertinent finding (altered mental status; not very alert) Skin: normal color, no rash Lymphatic: no adenopathy Laboratory Results Last 24 Hours Test 10/08/16 21:16 10/08/16 22:22 10/08/16 22:27 10/09/16 06:01 Urine Color YELLOW Urine Appearance CLEAR Urine pH 8.0 Urine Specific [place] 1.006 Urine Protein NEG Urine Glucose (UA) NEG Urine Ketones NEG Urine Occult Blood NEG Urine Nitrite NEG Urine Bilirubin NEG Urine Urobilinogen NEG Urine Leukocyte Esterase MODERATE Urine WBC (Auto) 5-10 /hpf Urine RBC (Auto) 0-4 /hpf Urine Hyaline Casts (Auto) 1-5 /lpf Urine Epithelial Cells (Auto) >30 /lpf Urine Bacteria (Auto) NEG Urine Renal Epithelial Cells /lpf White Blood Count 22.19 K/uL Red Blood Count 4.68 M/uL Hemoglobin 14.3 g/dL Hematocrit 40.6 % Mean Corpuscular Volume 86.8 fL Mean Corpuscular Hemoglobin 30.6 pg Mean Corpuscular Hemoglobin Concent 35.2 g/dl Platelet Count 262 K/uL Mean Platelet Volume 10.4 fL Neutrophils (%) (Auto) 91.0 % Lymphocytes (%) (Auto) 1.8 % Monocytes (%) (Auto) 6.1 % Eosinophils (%) (Auto) 0.0 % Basophils (%) (Auto) 0.1 % Neutrophils # (Auto) 20.19 K/uL Lymphocytes # (Auto) 0.39 K/uL Monocytes # (Auto) 1.35 K/uL Eosinophils # (Auto) 0.01 K/uL Basophils # (Auto) 0.02 K/uL RDW Standard Deviation 49.6 fL RDW Coefficient of Variation 15.7 % Immature Granulocyte % (Auto) 1.0 % Immature Granulocyte # (Auto) 0.23 K/uL Prothrombin Time 10.7 SECONDS Prothromb Time International Ratio 1.0 Activated Partial Thromboplast Time 23.8 SECONDS Partial Thromboplastin Ratio 0.9 Sodium Level 132 mmol/L Potassium Level 3.2 mmol/L Chloride Level 96 mmol/L Carbon Dioxide Level 25 mmol/L Anion Gap 11.0 mmol/L Blood Urea Nitrogen 15 mg/dl Creatinine 1.30 mg/dl Estimated GFR () 44.9 Estimated GFR (Non- 38.7 BUN/Creatinine Ratio 11.4 Random Glucose 146 mg/dl Calcium Level 9.3 mg/dl Total Bilirubin 2.4 mg/dl Aspartate Amino Transf (AST/SGOT) 920 U/L Alanine Aminotransferase (ALT/SGPT) 801 U/L Alkaline Phosphatase 377 U/L Troponin I < 0.015 ng/ml Total Protein 7.5 gm/dl Albumin 2.9 gm/dl Globulin 4.6 gm/dl Albumin/Globulin Ratio 0.6 Thyroid Stimulating Hormone (TSH) < 0.005 uIu/ml Bedside Lactic Acid Venous 2.99 mmol/L Bedside Glucose 163 mg/dl Test 10/09/16 06:54 10/09/16 09:56 10/09/16 10:28 Total Bilirubin 2.8 mg/dl Direct Bilirubin 2.3 mg/dl Aspartate Amino Transf (AST/SGOT) 576 U/L Alanine Aminotransferase (ALT/SGPT) 608 U/L Alkaline Phosphatase 306 U/L Total Protein 6.3 gm/dl Albumin 2.4 gm/dl Bedside Glucose 202 mg/dl Assessment and Plan Assessment and Plan: 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 acute cholecystitis: clinical presentation, labs, and imaging point towards diagnosis of acute cholecystitis. RUQ pain, nausea, hypotension Labs- elevated WBC (22), total bilirubin (2.4), AST (920), ALT (801), and Alk Phos (377). U/S and CT- gallbladder wall thickened, no extrahepatic biliary duct dilation started on and will continue the following Abx: vancomycin HCL 1200mg- 274ml @ 125mls/hr aztreonam 1000mg/dextrose 110ml @ 1100mls/hr metronidazole 500mg 100ml @ 100mls/hr ERCP will be performed on 10/09/16 panhypopituitarism: will continue hydrocortisone 15mg PO AM and 5mg PO PM; 50mg PO stress dose determined each day during hospital stay. will continue synthroid 125umg PO daily will continue desmopressin acetate 0.1mg PO ATTENDING NOTE: Please see resident physician note and my attestation of the same date.
--- NOTE | 2016-10-09 12:10 | DIAGNOSTIC IMAGING REPORT ---
ERCP BILIARY DUCTAL CLINICAL HISTORY: ERCP ALREADY DONE COMPARISON STUDY: 10/08/2016 FLUOROSCOPY TIME: 1 minute 53 seconds. FINDINGS: Retrograde opacification of the common bile duct. This is followed by balloon insufflation and sweeping of the common duct. This is followed by successful stent placement. IMPRESSION: Successful stent placement to the common bile duct. Electronically signed by: Lamberto Ontiveros M.D. 10/09/2016 12:09 PM Dictated Date/Time: 10/09/2016 12:07 PM
--- NOTE | 2016-10-09 12:46 | Anesthesiology Progress Note ---
Anesthesia Post Op Note Date & Time Oct 09, 2016 at 12:46 Vital Signs Pain Intensity: 0 Vital Signs Past 12 Hours Date Time Temp Pulse Resp B/P (MAP) Pulse Ox O2 Delivery O2 Flow Rate FiO2 10/09/16 12:28 36.9 10/09/16 12:27 89 19 100 10/09/16 12:27 90 19 10/09/16 12:26 157/76 10/09/16 12:22 90 27 10/09/16 12:22 96 27 93 10/09/16 12:21 135/66 10/09/16 12:17 91 17 100 10/09/16 12:17 91 17 10/09/16 12:16 140/62 10/09/16 12:12 91 15 100 10/09/16 12:12 91 15 10/09/16 12:11 152/63 10/09/16 12:08 91 16 100 10/09/16 12:08 91 16 10/09/16 12:06 132/63 10/09/16 12:03 93 19 10/09/16 12:03 93 19 100 10/09/16 12:01 113/72 10/09/16 11:58 94 13 100 10/09/16 11:58 94 13 10/09/16 11:56 118/72 10/09/16 11:54 101/71 10/09/16 11:53 36.9 98 20 118/72 100 Mask 10 10/09/16 11:53 99 18 10/09/16 11:53 99 18 99 10/09/16 08:00 Room Air 10/09/16 07:28 36.6 96 22 97/64 (75) 93 Room Air 10/09/16 04:00 Room Air 10/09/16 03:07 36.8 107 16 99/63 (75) 96 Room Air 10/09/16 02:00 36.6 110 18 110/94 (99) 94 Room Air 10/09/16 02:00 Room Air 10/09/16 01:34 106 20 100/50 95 Room Air 10/09/16 00:59 106 20 121/69 95 Room Air Notes Mental Status: alert / awake / arousable, participated in evaluation Pt Amnestic to Procedure: Yes Nausea / Vomiting: adequately controlled Pain: adequately controlled Airway Patency, RR, SpO2: stable & adequate BP & HR: stable & adequate Hydration State: stable & adequate Anesthetic Complications: no major complications apparent Pt doing well.
--- NOTE | 2016-10-09 13:28 | Clinical Documentation Query ---
CLINICAL DOCUMENTATION QUERY 81 year old female who presents septic 2/2 acute obstructive cholangitis with CBD stone. H&P described patient as, "Lethargic elderly female that appears mildly distressed. Cannot cooperate with exam due to AMS/lethargy." In your clinical opinion is this patient being managed for: ( ) Metabolic/Septic encephalopathy in setting acute cholangitis and CBD stones treated with ERC and multiple IV antibiotics. ( ) Other explanation of clinical findings (Please Explain) (X) Unable to determine (Please Define) This may be her baseline mental status. ( ) Need to Discuss ( ) Not Agree The medical record reflects the following clinical findings, treatment, and risk factors. Clinical Indicators: As above. Treatment: IVF's, IV Vancomycin, IV Daptomycin, IV Flagyl, IV Aztreonam, ERCP Risk Factors: Age, CBD stones with cholangitis. Please clarify and document your clinical opinion in the progress notes and discharge summary. Terms such as "probable", "suspected", "likely", "questionable", "possible", or "still to be ruled out" are acceptable. IF IN AGREEMENT, YOU MUST DOCUMENT ABOVE DIAGNOSTIC STATEMENT IN DAILY PROGRESS NOTES AND DISCHARGE SUMMARY. This document is not part of the patient's record. Encephalopathy is a term for any diffuse disease of the brain that alters brain function or structure. There are many causes of encephalopathy including: advanced or severe disease states such as liver or kidney disease, infection, lack of oxygen to the brain, brain tumor or increased intracranial pressure, prolonged exposure to toxic substances including drug and alcohol abuse, trauma, poor nutrition and lack of adequate blood flow to the brain. Thank You, Herminio Mitchell, RN [phone]
--- NOTE | 2016-10-09 13:29 | Clinical Documentation Query ---
CLINICAL DOCUMENTATION QUERY 81 year old female who presents septic 2/2 acute obstructive cholangitis with CBD stone. H&P described patient as, "Lethargic elderly female that appears mildly distressed. Cannot cooperate with exam due to AMS/lethargy." In your clinical opinion is this patient being managed for: ( x) Metabolic/Septic encephalopathy in setting acute cholangitis and CBD stones treated with ERC and multiple IV antibiotics. ( ) Other explanation of clinical findings (Please Explain) ( ) Unable to determine (Please Define) ( ) Need to Discuss ( ) Not Agree The medical record reflects the following clinical findings, treatment, and risk factors. Clinical Indicators: As above. Treatment: IVF's, IV Vancomycin, IV Daptomycin, IV Flagyl, IV Aztreonam, ERCP Risk Factors: Age, CBD stones with cholangitis. Please clarify and document your clinical opinion in the progress notes and discharge summary. Terms such as "probable", "suspected", "likely", "questionable", "possible", or "still to be ruled out" are acceptable. IF IN AGREEMENT, YOU MUST DOCUMENT ABOVE DIAGNOSTIC STATEMENT IN DAILY PROGRESS NOTES AND DISCHARGE SUMMARY. This document is not part of the patient's record. Encephalopathy is a term for any diffuse disease of the brain that alters brain function or structure. There are many causes of encephalopathy including: advanced or severe disease states such as liver or kidney disease, infection, lack of oxygen to the brain, brain tumor or increased intracranial pressure, prolonged exposure to toxic substances including drug and alcohol abuse, trauma, poor nutrition and lack of adequate blood flow to the brain. Thank You, Herminio Mitchell, RN [phone]
--- NOTE | 2016-10-09 15:22 | Pharmacy Progress Note ---
Pharmacy Abx Initial Consult Date of Service Oct 09, 2016. Pharmacy Dosing Scope Date of Consult: 10/09/16 Consultation requested by: Jessica Hauser PAC Pharmacy is consulted to initiate Vancomycin IV dosing therapy, order appropriate labs and adjust drug dose/frequency. Subjective The patient is a 81 year old female admitted on Oct 09, 2016 at 01:01 with Cholelithiasis that is scheduled a ERCP/EUS today with Dr. Chappell. She was put on broad spectrum antibiotics on admission in the form of Daptomycin, Flagyl and Azactam. ID was consulted due to the restrictive nature of Daptomycin at [facility] and chose to change to Vancomycin. Objective Height (Feet): 5 Height (Inches): 7.00 Weight (Kilograms): 79.800 Vital Signs (Past 12Hrs) Vital Signs Past 12 Hours Date Time Temp Pulse Resp B/P (MAP) Pulse Ox O2 Delivery O2 Flow Rate FiO2 10/09/16 14:05 36.7 92 16 131/81 (98) 94 Room Air 10/09/16 13:26 36.9 93 18 135/83 (100) 94 Room Air 10/09/16 13:05 Room Air 10/09/16 13:04 36.9 95 18 145/81 (102) 94 Nasal Cannula 10/09/16 12:50 36.9 92 22 134/77 (96) 99 Nasal Cannula 2.0 10/09/16 12:28 36.9 10/09/16 12:27 89 19 100 10/09/16 12:27 90 19 10/09/16 12:26 157/76 10/09/16 12:22 90 27 10/09/16 12:22 96 27 93 10/09/16 12:21 135/66 10/09/16 12:17 91 17 100 10/09/16 12:17 91 17 10/09/16 12:16 140/62 10/09/16 12:12 91 15 100 10/09/16 12:12 91 15 10/09/16 12:11 152/63 10/09/16 12:08 91 16 100 10/09/16 12:08 91 16 10/09/16 12:06 132/63 10/09/16 12:03 93 19 10/09/16 12:03 93 19 100 10/09/16 12:01 113/72 10/09/16 11:58 94 13 100 6/20/17 11:58 94 13 10/09/16 11:56 118/72 10/09/16 11:54 101/71 10/09/16 11:53 36.9 98 20 118/72 100 Mask 10 10/09/16 11:53 99 18 10/09/16 11:53 99 18 99 10/09/16 08:00 Room Air 10/09/16 07:28 36.6 96 22 97/64 (75) 93 Room Air 10/09/16 04:00 Room Air 10/09/16 03:07 36.8 107 16 99/63 (75) 96 Room Air Lab Results (24Hrs) Laboratory Tests (24 Hours) Test 10/08/16 22:22 10/09/16 06:54 White Blood Count 22.19 K/uL (4.8-10.8) H Red Blood Count 4.68 M/uL (4.2-5.4) Hemoglobin 14.3 g/dL (12.0-16.0) Hematocrit 40.6 % (37-47) Mean Corpuscular Volume 86.8 fL (80-100) Mean Corpuscular Hemoglobin 30.6 pg (25-34) Mean Corpuscular Hemoglobin Concent 35.2 g/dl (32-36) Platelet Count 262 K/uL (130-400) Mean Platelet Volume 10.4 fL (7.4-10.4) Neutrophils (%) (Auto) 91.0 % Lymphocytes (%) (Auto) 1.8 % Monocytes (%) (Auto) 6.1 % Eosinophils (%) (Auto) 0.0 % Basophils (%) (Auto) 0.1 % Neutrophils # (Auto) 20.19 K/uL (1.4-6.5) H Lymphocytes # (Auto) 0.39 K/uL (1.2-3.4) L Monocytes # (Auto) 1.35 K/uL (0.11-0.59) H Eosinophils # (Auto) 0.01 K/uL (0-0.5) Basophils # (Auto) 0.02 K/uL (0-0.2) Total Creatine Kinase 42 U/L (26-192) Micro Results Date/Time Source Procedure Growth Status 10/08/16 22:22 Blood Blood Culture Pending Received Assessment & Plan Assessment 81 year old female with Cholelithiasis taken to OR today by Dr. Chappell for ERCP with stent placement. She was placed on broad spectrum antibiotics of which Daptomycin was switched to Vancomycin by ID this morning. She is continued on Azactam 1gm IV every 8 hours and Flagyl 500mg IV every 8 hours. Plan Vancomycin for treatment of Cholelithiasis Vancomycin IV * Loading dose: Vancomycin 2000mg (25 mg/kg) * Maintenance dose: Vancomycin 1200mg IV (15 mg/kg) every 18 hours * Goal trough level for Cholelithiasis : 15-20 mcg/mL * Trough level ordered prior to 1600 dose on 10/12/16 * I estimated her half life at around 16 hours based on baseline renal function. Pharmacy will continue to follow and will adjust dose/frequency as necessary. Thank you.
--- NOTE | 2016-10-09 16:01 | ECHOCARDIOGRAM REPORT ---
*NOTICE TO RECEIVING LIBERTARIAN AGENCY This information is strictly Confidential and protected under [place] law. [place] law prohibits you from making any further disclosure of this information unless further disclosure is expressly permitted by the written consent of the person to whom it pertains or is authorized by law. A general authorization for the release of medical or other information is not sufficient for this purpose. Hospital accepts no responsibility if the information is made available to any other person, INCLUDING THE PATIENT. Interpretation Summary * Name: ARTEMIO ANDERSON Study Date: 10/09/2016 01:12 PM BP: 131/81 mmHg * Patient Location: C.2T\S\S240\S\1 HR: 92 * : 1935 (M/d/yy) Gender: Female Height: 62 in * Age: 81 yrs Ethnicity: [place] Weight: 194 lb * Ordering Physician: Primo Prasad * Referring Physician: Self, Referred * Performed By: Deepti Heredia RDCS * * Reason For Study: CHF * BSA: 1.9 m2 * NO APICAL WINDOW, PATIENT UNABLE TO HOLD BREATH OR MOVE FOR ME * -- Conclusions -- * Image qualilty was sub-optimal and limited views were optained. * There is mild concentric left ventricular hypertrophy. * Left ventricular systolic function is normal. * Grade I diastolic dysfunction, (abnormal relaxation pattern). Procedure Details * A contrast injection of Definity was performed to improve assessment of LV function. * Contrast was injected into an intravenous site in the left arm. * One vial of Definity ultrasound contrast was diluted in normal saline to a total volume of 10 ml. A total of '2' ml of solution was administered during imaging. * Lot # [id number] of Definity utilized for procedure. * Expiration date NOV 06. * The attending nurse who injected the contrast agent was JAN ANNE RN. * Image qualilty was sub-optimal and limited views were optained. Left Ventricle * The left ventricle is grossly normal size. * There is mild concentric left ventricular hypertrophy. * Ejection Fraction = 60-65%. * Left ventricular systolic function is normal. * Grade I diastolic dysfunction, (abnormal relaxation pattern). Right Ventricle * The right ventricle is not well visualized. Mitral Valve * The mitral valve is not well visualized. Tricuspid Valve * The tricuspid valve is not well visualized. * There is trace tricuspid regurgitation. * Right ventricular systolic pressure is normal. Aortic Valve * The valve apears bicuspid, but given the patients age this is unlikely. * No hemodynamically significant valvular aortic stenosis. * There is no significant aortic regurgitation. Great Vessels * The aortic root is normal size. Pericardium/Pleural * There is no pericardial effusion. MMode 2D Measurements and Calculations IVSd 1.3 cm IVSs 1.8 cm LVIDd 3.0 cm LVIDs 2.0 cm LVPWd 1.4 cm LVPWs 1.6 cm IVS/LVPW 0.96 FS 33.2 % EDV(Teich) 33.7 ml ESV(Teich) 12.3 ml EF(Teich) 63.6 % EDV(cubed) 25.8 ml ESV(cubed) 7.7 ml EF(cubed) 70.2 % % IVS thick 36.7 % % LVPW thick 18.2 % LV mass(C)d 128.1 grams LV mass(C)dI 67.9 grams/m\S\2 LV mass(C)s 124.1 grams LV mass(C)sI 65.8 grams/m\S\2 SV(Teich) 21.4 ml SI(Teich) 11.4 ml/m\S\2 SV(cubed) 18.1 ml SI(cubed) 9.6 ml/m\S\2 Ao root diam 3.6 cm Ao root area 10.0 cm\S\2 Doppler Measurements and Calculations MV E max ramon 68.6 cm/sec MV A max ramon 71.6 cm/sec MV E/A 0.96 MV dec time 0.17 sec Ao V2 max 119.9 cm/sec Ao max PG 5.7 mmHg Ao max PG (full) 4.3 mmHg LV V1 max PG 1.5 mmHg LV V1 max 61.2 cm/sec TR max ramon 171.0 cm/sec
--- NOTE | 2016-10-09 16:31 | Family Medicine Progress Note ---
Progress Note Date of Service Oct 09, 2016. Subjective Pt evaluation today including: conversation w/ patient, conversation w/ family Voiding: no incontinence Pt seen before and after ERCP. Was initially in pain, on further review was sleeping comfortably. Caregiver denied any concerns. Pt has 24 hour caregivers, even while pt is in hospital. Additional Comments: ROS unable to be obtained, initially due to altered mental status. Medications Current Inpatient Medications Medications (Trade) Dose Ordered Sig/Natalee Route Start Time Stop Time Status Last Admin Dose Admin Metronidazole 500 mg/Prmx 100 ml @ 100 mls/hr Q8H IV 10/09/16 08:00 10/19/16 07:59 10/09/16 15:05 100 MLS/HR Aztreonam 1000 mg/ Dextrose 110 ml @ 100 mls/hr Q8H IV 10/09/16 10:00 10/19/16 09:59 10/09/16 09:06 100 MLS/HR Potassium Chloride/Sodium Chloride 1,000 ml @ 100 mls/hr Q10H IV 10/09/16 02:30 10/09/16 22:29 10/09/16 12:51 100 MLS/HR Calcitriol (Rocaltrol Cap) 0.25 mcg DAILY PO 10/09/16 09:00 11/08/16 08:59 Latanoprost (Xalatan Oph Soln) 1 drops HS OPB 10/09/16 21:00 11/08/16 20:59 Artificial Tears (Artificial Tears) 1 drops Q4H PRN OP 10/09/16 01:15 11/08/16 01:14 Desmopressin Acetate (Desmopressin Acetate) 0.1 mg DAILY PO 10/09/16 09:00 11/08/16 08:59 Hydrocortisone Sodium Succinate 50 mg/Syringe 1 ml @ 4 mls/min Q8H IV 10/09/16 03:00 11/08/16 02:59 10/09/16 12:51 4 MLS/MIN Insulin Aspart (novoLOG ASPART) SLIDING SCALE G... Q6 SC 10/09/16 06:00 11/08/16 05:59 10/09/16 12:54 1 UNITS Levothyroxine Sodium 62.5 mcg/ Syringe 3.125 ml @ 1.563 mls/ min DAILY@09 IV 10/09/16 09:00 11/08/16 08:59 10/09/16 08:32 1.563 MLS/MIN Aztreonam (Consult) 1 ea UD PRN N/A 10/09/16 05:15 11/08/16 05:14 Vancomycin HCl 1200 mg/Sodium Chloride 274 ml @ 125 mls/hr Q18H IV 10/10/16 10:00 10/20/16 09:59 Vancomycin HCl (Consult) 1 ea UD PRN N/A 10/09/16 10:15 11/08/16 10:14 Objective Vital Signs Date Time Temp Pulse Resp B/P (MAP) Pulse Ox O2 Delivery O2 Flow Rate FiO2 10/09/16 15:51 36.8 101 18 118/58 (78) 92 Room Air 10/09/16 15:48 36.9 95 16 109/69 (82) 95 Room Air 10/09/16 15:14 Room Air 10/09/16 14:54 36.9 90 18 154/78 (103) 92 Room Air 10/09/16 14:05 36.7 92 16 131/81 (98) 94 Room Air 10/09/16 13:26 36.9 93 18 135/83 (100) 94 Room Air 10/09/16 13:05 Room Air 10/09/16 13:04 36.9 95 18 145/81 (102) 94 Nasal Cannula 10/09/16 12:50 36.9 92 22 134/77 (96) 99 Nasal Cannula 2.0 10/09/16 12:28 36.9 10/09/16 12:27 89 19 100 10/09/16 12:27 90 19 10/09/16 12:26 157/76 10/09/16 12:22 90 27 10/09/16 12:22 96 27 93 10/09/16 12:21 135/66 10/09/16 12:17 91 17 100 10/09/16 12:17 91 17 10/09/16 12:16 140/62 10/09/16 12:12 91 15 100 10/09/16 12:12 91 15 10/09/16 12:11 152/63 10/09/16 12:08 91 16 100 10/09/16 12:08 91 16 10/09/16 12:06 132/63 10/09/16 12:03 93 19 10/09/16 12:03 93 19 100 10/09/16 12:01 113/72 10/09/16 11:58 94 13 100 10/09/16 11:58 94 13 10/09/16 11:56 118/72 10/09/16 11:54 101/71 10/09/16 11:53 36.9 98 20 118/72 100 Mask 10 10/09/16 11:53 99 18 10/09/16 11:53 99 18 99 10/09/16 08:00 Room Air 10/09/16 07:28 36.6 96 22 97/64 (75) 93 Room Air 10/09/16 04:00 Room Air 10/09/16 03:07 36.8 107 16 99/63 (75) 96 Room Air 10/09/16 02:00 36.6 110 18 110/94 (99) 94 Room Air 10/09/16 02:00 Room Air 10/09/16 01:34 106 20 100/50 95 Room Air 10/09/16 00:59 106 20 121/69 95 Room Air 10/09/16 00:18 100 20 117/57 98 Room Air 10/08/16 23:43 97 20 106/52 98 Room Air 10/08/16 23:23 100 20 95/65 93 Room Air 10/08/16 23:21 100 10/08/16 22:20 103 20 112/64 95 Room Air 10/08/16 21:42 96 Room Air 10/08/16 21:34 103 10/08/16 20:56 36.8 104 20 110/63 96 Room Air Physical Exam General Appearance: WD/WN, no apparent distress Eyes: normal inspection, PERRL ENT: hearing grossly normal Neck: supple, no JVD Respiratory/Chest: lungs clear, normal breath sounds, no respiratory distress Cardiovascular: regular rate, rhythm, no murmur Abdomen: + guarding Extremities: non-tender, normal inspection, no calf tenderness Neurologic/Psychiatric: + disoriented Skin: no rash Lymphatic: no adenopathy Laboratory Results Last 24 Hours Test 10/08/16 21:16 10/08/16 22:22 10/08/16 22:27 10/09/16 06:01 Urine Color YELLOW Urine Appearance CLEAR Urine pH 8.0 Urine Specific [place] 1.006 Urine Protein NEG Urine Glucose (UA) NEG Urine Ketones NEG Urine Occult Blood NEG Urine Nitrite NEG Urine Bilirubin NEG Urine Urobilinogen NEG Urine Leukocyte Esterase MODERATE Urine WBC (Auto) 5-10 /hpf Urine RBC (Auto) 0-4 /hpf Urine Hyaline Casts (Auto) 1-5 /lpf Urine Epithelial Cells (Auto) >30 /lpf Urine Bacteria (Auto) NEG Urine Renal Epithelial Cells /lpf White Blood Count 22.19 K/uL Red Blood Count 4.68 M/uL Hemoglobin 14.3 g/dL Hematocrit 40.6 % Mean Corpuscular Volume 86.8 fL Mean Corpuscular Hemoglobin 30.6 pg Mean Corpuscular Hemoglobin Concent 35.2 g/dl Platelet Count 262 K/uL Mean Platelet Volume 10.4 fL Neutrophils (%) (Auto) 91.0 % Lymphocytes (%) (Auto) 1.8 % Monocytes (%) (Auto) 6.1 % Eosinophils (%) (Auto) 0.0 % Basophils (%) (Auto) 0.1 % Neutrophils # (Auto) 20.19 K/uL Lymphocytes # (Auto) 0.39 K/uL Monocytes # (Auto) 1.35 K/uL Eosinophils # (Auto) 0.01 K/uL Basophils # (Auto) 0.02 K/uL RDW Standard Deviation 49.6 fL RDW Coefficient of Variation 15.7 % Immature Granulocyte % (Auto) 1.0 % Immature Granulocyte # (Auto) 0.23 K/uL Prothrombin Time 10.7 SECONDS Prothromb Time International Ratio 1.0 Activated Partial Thromboplast Time 23.8 SECONDS Partial Thromboplastin Ratio 0.9 Sodium Level 132 mmol/L Potassium Level 3.2 mmol/L Chloride Level 96 mmol/L Carbon Dioxide Level 25 mmol/L Anion Gap 11.0 mmol/L Blood Urea Nitrogen 15 mg/dl Creatinine 1.30 mg/dl Estimated GFR () 44.9 Estimated GFR (Non- 38.7 BUN/Creatinine Ratio 11.4 Random Glucose 146 mg/dl Calcium Level 9.3 mg/dl Total Bilirubin 2.4 mg/dl Aspartate Amino Transf (AST/SGOT) 920 U/L Alanine Aminotransferase (ALT/SGPT) 801 U/L Alkaline Phosphatase 377 U/L Troponin I < 0.015 ng/ml Total Protein 7.5 gm/dl Albumin 2.9 gm/dl Globulin 4.6 gm/dl Albumin/Globulin Ratio 0.6 Thyroid Stimulating Hormone (TSH) < 0.005 uIu/ml Bedside Lactic Acid Venous 2.99 mmol/L Bedside Glucose 163 mg/dl Test 10/09/16 06:54 10/09/16 10:28 10/09/16 12:17 10/09/16 12:50 Total Bilirubin 2.8 mg/dl Direct Bilirubin 2.3 mg/dl Aspartate Amino Transf (AST/SGOT) 576 U/L Alanine Aminotransferase (ALT/SGPT) 608 U/L Alkaline Phosphatase 306 U/L Total Creatine Kinase 42 U/L Total Protein 6.3 gm/dl Albumin 2.4 gm/dl Bedside Glucose 202 mg/dl 161 mg/dl 161 mg/dl Test 10/09/16 16:12 Bedside Glucose 156 mg/dl Assessment and Plan 81 yo F found to have acute cholecystitis with cholangitis, who underwent ERCP with stent placement today. Metabolic/Septic encephalopathy in setting acute cholangitis and CBD stones treated with ERCP and multiple IV antibiotics. GI Following. Will continue to monitor. Will advance diet as tolerated. Remains on Vanc, Aztreonam, and Flagyl. 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 Leonard during the history and exam. I discussed the case with the resident and agree with the findings and plan as documented in the note. Any exceptions or clarifications are listed here: Following the procedure, the patient was sleeping; no evidence of pain. The patient has 24 hour caretakers at home, and they are at her bedside during this admission as well. Documented By: Isiah Matos Resident Tracking Resident Involvement: Resident Care Provided Care Provided: Adult Hospital Medicine
[2016-10-09] MEDS: LATANOPROST 0.005% OP SOLN 2.5 ML BTL OPB SCH (20:27)
[2016-10-09] MEDS ORDERED: DAPTOmycin IV 350 MG in SODIUM CHLORIDE 0.9% 50ML 50 ML IV SCH (23:00)
[2016-10-10] MEDS: AZTREONAM IV 1,000 MG in DEXTROSE 5% 100ML 100 ML IV SCH ×3 (01:41→20:43)
[2016-10-10] MEDS: HYDROCORTISONE IV 50 MG in SYRINGE 0 ML IV SCH ×3 (02:52→18:41)
[2016-10-10 04:07] VITALS: BP 146/78; PULSE 118; TEMP 36.9; O2SAT 93
[2016-10-10] MEDS: INSULIN ASPART 100 UNITS/ML 3 ML PEN SC SCH ×3 (06:00→18:40)
[2016-10-10 07:03] LABS: HEMATOCRIT 37.6 % (37-47); MEAN CELL VOLUME 89.5 fL (80-100); MEAN CORPUSCULAR HEMOGLOBIN 30.7 pg (25-34); MEAN CORPUSCULAR HGB CONC 34.3 g/dl (32-36); MEAN PLATELET VOLUME 10.2 fL (7.4-10.4); PLATELET COUNT 295 K/uL (130-400); WHITE BLOOD COUNT 21.17 K/uL (4.8-10.8)
[2016-10-10 07:36] VITALS: BP 144/87; PULSE 117; TEMP 36.7; O2SAT 94
[2016-10-10] MEDS: METRONIDAZOLE / NSS 500 MG in PREMIXED NSS 100 ML IV SCH ×2 (07:44→18:35)
[2016-10-10] MEDS: CALCITRIOL 0.25 MCG CAP PO SCH (07:45)
[2016-10-10] MEDS: DESMOPRESSIN ACETATE 0.1 MG TAB PO SCH (07:45)
--- NOTE | 2016-10-10 08:03 | Family Medicine Progress Note ---
Progress Note Date of Service Oct 10, 2016. Subjective Pt evaluation today including: conversation w/ family, physical exam Pt much more confused today - says at baseline she communicates well. Has not been complaining of any pain, but has been wailing overnight. With me she is non-communicative but is shaking her hands frequently. Additional Comments: Unable to obtain ROS due to altered mental status. Medications Current Inpatient Medications Medications (Trade) Dose Ordered Sig/Natalee Route Start Time Stop Time Status Last Admin Dose Admin Metronidazole 500 mg/Prmx 100 ml @ 100 mls/hr Q8H IV 10/09/16 08:00 10/19/16 07:59 10/10/16 07:44 100 MLS/HR Aztreonam 1000 mg/ Dextrose 110 ml @ 100 mls/hr Q8H IV 10/09/16 10:00 10/19/16 09:59 10/10/16 01:41 100 MLS/HR Calcitriol (Rocaltrol Cap) 0.25 mcg DAILY PO 10/09/16 09:00 11/08/16 08:59 10/10/16 07:45 0.25 MCG Latanoprost (Xalatan Oph Soln) 1 drops HS OPB 10/09/16 21:00 11/08/16 20:59 10/09/16 20:27 1 DROPS Artificial Tears (Artificial Tears) 1 drops Q4H PRN OP 10/09/16 01:15 11/08/16 01:14 Desmopressin Acetate (Desmopressin Acetate) 0.1 mg DAILY PO 10/09/16 09:00 11/08/16 08:59 10/10/16 07:45 0.1 MG Hydrocortisone Sodium Succinate 50 mg/Syringe 1 ml @ 4 mls/min Q8H IV 10/09/16 03:00 11/08/16 02:59 10/10/16 02:52 4 MLS/MIN Insulin Aspart (novoLOG ASPART) SLIDING SCALE G... Q6 SC 10/09/16 06:00 11/08/16 05:59 10/10/16 06:00 1 UNITS Levothyroxine Sodium 62.5 mcg/ Syringe 3.125 ml @ 1.563 mls/ min DAILY@09 IV 10/09/16 09:00 11/08/16 08:59 10/09/16 08:32 1.563 MLS/MIN Aztreonam (Consult) 1 ea UD PRN N/A 10/09/16 05:15 11/08/16 05:14 Vancomycin HCl 1200 mg/Sodium Chloride 274 ml @ 125 mls/hr Q18H IV 10/10/16 10:00 10/20/16 09:59 Vancomycin HCl (Consult) 1 ea UD PRN N/A 10/09/16 10:15 11/08/16 10:14 Objective Vital Signs Date Time Temp Pulse Resp B/P (MAP) Pulse Ox O2 Delivery O2 Flow Rate FiO2 10/10/16 04:07 36.9 118 18 146/78 (100) 93 10/10/16 04:00 Room Air 10/10/16 00:01 Room Air 10/09/16 23:09 36.9 99 18 154/63 (93) 95 Room Air 10/09/16 20:00 Room Air 10/09/16 19:49 36.7 94 16 131/70 (90) 92 Room Air 10/09/16 15:51 36.8 101 18 118/58 (78) 92 Room Air 10/09/16 15:48 36.9 95 16 109/69 (82) 95 Room Air 10/09/16 15:14 Room Air 10/09/16 14:54 36.9 90 18 154/78 (103) 92 Room Air 10/09/16 14:05 36.7 92 16 131/81 (98) 94 Room Air 10/09/16 13:26 36.9 93 18 135/83 (100) 94 Room Air 10/09/16 13:05 Room Air 10/09/16 13:04 36.9 95 18 145/81 (102) 94 Nasal Cannula 10/09/16 12:50 36.9 92 22 134/77 (96) 99 Nasal Cannula 2.0 10/09/16 12:28 36.9 10/09/16 12:27 89 19 100 10/09/16 12:27 90 19 10/09/16 12:26 157/76 10/09/16 12:22 90 27 10/09/16 12:22 96 27 93 10/09/16 12:21 135/66 10/09/16 12:17 91 17 100 10/09/16 12:17 91 17 10/09/16 12:16 140/62 10/09/16 12:12 91 15 100 10/09/16 12:12 91 15 10/09/16 12:11 152/63 10/09/16 12:08 91 16 100 10/09/16 12:08 91 16 10/09/16 12:06 132/63 10/09/16 12:03 93 19 10/09/16 12:03 93 19 100 10/09/16 12:01 113/72 10/09/16 11:58 94 13 100 10/09/16 11:58 94 13 10/09/16 11:56 118/72 10/09/16 11:54 101/71 10/09/16 11:53 36.9 98 20 118/72 100 Mask 10 10/09/16 11:53 99 18 10/09/16 11:53 99 18 99 10/09/16 08:00 Room Air Physical Exam General Appearance: + mild distress Eyes: normal inspection, PERRL ENT: hearing grossly normal Neck: supple, no JVD Respiratory/Chest: lungs clear Cardiovascular: regular rate, rhythm, no murmur Abdomen: non tender, soft, + guarding (guarding but is guarding even when touch her leg) Extremities: non-tender, no pedal edema Neurologic/Psychiatric: + disoriented Skin: no rash Laboratory Results Current Inpatient Medications Medications (Trade) Dose Ordered Sig/Natalee Route Start Time Stop Time Status Last Admin Dose Admin Metronidazole 500 mg/Prmx 100 ml @ 100 mls/hr Q8H IV 10/09/16 08:00 10/19/16 07:59 10/10/16 07:44 100 MLS/HR Aztreonam 1000 mg/ Dextrose 110 ml @ 100 mls/hr Q8H IV 10/09/16 10:00 10/19/16 09:59 10/10/16 01:41 100 MLS/HR Calcitriol (Rocaltrol Cap) 0.25 mcg DAILY PO 10/09/16 09:00 11/08/16 08:59 10/10/16 07:45 0.25 MCG Latanoprost (Xalatan Oph Soln) 1 drops HS OPB 10/09/16 21:00 11/08/16 20:59 10/09/16 20:27 1 DROPS Artificial Tears (Artificial Tears) 1 drops Q4H PRN OP 10/09/16 01:15 11/08/16 01:14 Desmopressin Acetate (Desmopressin Acetate) 0.1 mg DAILY PO 10/09/16 09:00 11/08/16 08:59 10/10/16 07:45 0.1 MG Hydrocortisone Sodium Succinate 50 mg/Syringe 1 ml @ 4 mls/min Q8H IV 10/09/16 03:00 11/08/16 02:59 10/10/16 02:52 4 MLS/MIN Insulin Aspart (novoLOG ASPART) SLIDING SCALE G... Q6 SC 10/09/16 06:00 11/08/16 05:59 10/10/16 06:00 1 UNITS Levothyroxine Sodium 62.5 mcg/ Syringe 3.125 ml @ 1.563 mls/ min DAILY@09 IV 10/09/16 09:00 11/08/16 08:59 10/09/16 08:32 1.563 MLS/MIN Aztreonam (Consult) 1 ea UD PRN N/A 10/09/16 05:15 11/08/16 05:14 Vancomycin HCl 1200 mg/Sodium Chloride 274 ml @ 125 mls/hr Q18H IV 10/10/16 10:00 10/20/16 09:59 Vancomycin HCl (Consult) 1 ea UD PRN N/A 10/09/16 10:15 11/08/16 10:14 ERCP FINDINGS: Impression: - A filling defect consistent with a stone was seen on the cholangiogram. - The entire main bile duct was mildly dilated. - Biliary papillary stenosis, benign. - A sphincterotomy was performed. - The lower third of the main bile duct was successfully dilated - The biliary tree was swept and pus was found. Choledocholithiasis was also found. Complete removal was accomplished by biliary sphincterotomy and balloon extraction. - One biliary stent was placed into the common bile duct. Recommendation: - Avoid aspirin and nonsteroidal anti-inflammatory medicines for 5 days. - Clear liquid diet today. - Use broad spectrum antibiotics for 2 weeks. - Repeat ERCP in 6 weeks to remove stent. - Refer to a surgeon to determine if cholecystectomy can be performed. Assessment and Plan 81 yo F found to have acute cholecystitis with cholangitis, who underwent ERCP with stent placement on 10/09/16. Metabolic/Septic encephalopathy in setting acute cholangitis and CBD stones treated with ERCP and multiple IV antibiotics. 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 Leonard during the history and exam. I discussed the case with the resident and agree with the findings and plan as documented in the note. Any exceptions or clarifications are listed here: After seeing patient, lab values returned noted elevated serum sodium. Agree with nephrology consult and appreciative of recommendations. Mid-day recheck of the patient noted that she was more alert. PLAN 1) Continue oral hydration to thirst. 2) Monitor BMP q 4 hours 3) Monitor neuro status. Documented By: Isiah Matos Resident Tracking Resident Involvement: Resident Care Provided Care Provided: Adult Hospital Medicine
[2016-10-10] MEDS: LEVOTHYROXINE SODIUM INJ 62.5 MCG in SYRINGE 0 ML IV SCH (08:49)
[2016-10-10 09:04] LABS: ANISOCYTOSIS PRESENT; COMPLETE YES; ECHINOCYTES 2+; LYMPH ABS # 0.74 K/uL (1.2-3.4); LYMPHOCYTE % 3.5 %; META ABS # 0.74 K/uL (0-0); METAMYELOCYTE % 3.5 %; MYELOCYTE % 1.7 %; POLYCHROMASIA 1+
--- NOTE | 2016-10-10 09:12 | Gastroenterology Progress Note ---
Progress Note Date of Service: Oct 10, 2016 Subjective Pt evaluation today including: conversation w/ patient, conversation w/ family , physical exam Pt was seen and evaluated this AM. She appears more interactive on exam today, however, her tells me she had a very rough night and has been more confused early this AM. S/P ERCP yesterday for choledocholithiasis and cholangitis w/ stent placement. LFTs including TB and DB remain elevated. Denies chills or abdominal pain. WBC remains elevated at 20. Family was at bedside and again assisted in history and ROS. ROS is limited, but she does shake her head when I ask about chills and pain. Their main concern is getting her gallbladder removed. ERCP 10/09/16: A filling defect consistent with a stone was seen on the cholangiogram. The entire main bile duct was mildly dilated. Biliary papillary stenosis, benign. A sphincterotomy was performed. The lower third of the main bile duct was successfully dilated The biliary tree was swept and pus was found. Choledocholithiasis was also found. Complete removal was accomplished by biliary sphincterotomy and balloon extraction.One biliary stent was placed into the common bile duct. Review of Systems Constitutional: No chills Abdomen: No pain Medications Current Inpatient Medications Medications (Trade) Dose Ordered Sig/Natalee Route Start Time Stop Time Status Last Admin Dose Admin Metronidazole 500 mg/Prmx 100 ml @ 100 mls/hr Q8H IV 10/09/16 08:00 10/19/16 07:59 10/10/16 07:44 100 MLS/HR Aztreonam 1000 mg/ Dextrose 110 ml @ 100 mls/hr Q8H IV 10/09/16 10:00 10/19/16 09:59 10/10/16 01:41 100 MLS/HR Calcitriol (Rocaltrol Cap) 0.25 mcg DAILY PO 10/09/16 09:00 11/08/16 08:59 10/10/16 07:45 0.25 MCG Latanoprost (Xalatan Oph Soln) 1 drops HS OPB 10/09/16 21:00 11/08/16 20:59 10/09/16 20:27 1 DROPS Artificial Tears (Artificial Tears) 1 drops Q4H PRN OP 10/09/16 01:15 11/08/16 01:14 Desmopressin Acetate (Desmopressin Acetate) 0.1 mg DAILY PO 10/09/16 09:00 11/08/16 08:59 10/10/16 07:45 0.1 MG Hydrocortisone Sodium Succinate 50 mg/Syringe 1 ml @ 4 mls/min Q8H IV 10/09/16 03:00 11/08/16 02:59 10/10/16 02:52 4 MLS/MIN Insulin Aspart (novoLOG ASPART) SLIDING SCALE G... Q6 SC 10/09/16 06:00 11/08/16 05:59 10/10/16 06:00 1 UNITS Levothyroxine Sodium 62.5 mcg/ Syringe 3.125 ml @ 1.563 mls/ min DAILY@09 IV 10/09/16 09:00 11/08/16 08:59 10/10/16 08:49 1.563 MLS/MIN Aztreonam (Consult) 1 ea UD PRN N/A 10/09/16 05:15 11/08/16 05:14 Vancomycin HCl 1200 mg/Sodium Chloride 274 ml @ 125 mls/hr Q18H IV 10/10/16 10:00 10/20/16 09:59 Vancomycin HCl (Consult) 1 ea UD PRN N/A 10/09/16 10:15 11/08/16 10:14 Objective Vital Signs Date Time Temp Pulse Resp B/P (MAP) Pulse Ox O2 Delivery O2 Flow Rate FiO2 10/10/16 07:36 36.7 117 18 144/87 (106) 94 Room Air 10/10/16 04:07 36.9 118 18 146/78 (100) 93 10/10/16 04:00 Room Air 10/10/16 00:01 Room Air 10/09/16 23:09 36.9 99 18 154/63 (93) 95 Room Air 10/09/16 20:00 Room Air 10/09/16 19:49 36.7 94 16 131/70 (90) 92 Room Air 10/09/16 15:51 36.8 101 18 118/58 (78) 92 Room Air 10/09/16 15:48 36.9 95 16 109/69 (82) 95 Room Air 10/09/16 15:14 Room Air 10/09/16 14:54 36.9 90 18 154/78 (103) 92 Room Air 10/09/16 14:05 36.7 92 16 131/81 (98) 94 Room Air 10/09/16 13:26 36.9 93 18 135/83 (100) 94 Room Air 10/09/16 13:05 Room Air 10/09/16 13:04 36.9 95 18 145/81 (102) 94 Nasal Cannula 10/09/16 12:50 36.9 92 22 134/77 (96) 99 Nasal Cannula 2.0 10/09/16 12:28 36.9 10/09/16 12:27 89 19 100 10/09/16 12:27 90 19 10/09/16 12:26 157/76 10/09/16 12:22 90 27 10/09/16 12:22 96 27 93 10/09/16 12:21 135/66 10/09/16 12:17 91 17 100 10/09/16 12:17 91 17 10/09/16 12:16 140/62 10/09/16 12:12 91 15 100 10/09/16 12:12 91 15 10/09/16 12:11 152/63 10/09/16 12:08 91 16 100 10/09/16 12:08 91 16 10/09/16 12:06 132/63 10/09/16 12:03 93 19 10/09/16 12:03 93 19 100 10/09/16 12:01 113/72 10/09/16 11:58 94 13 100 10/09/16 11:58 94 13 10/09/16 11:56 118/72 10/09/16 11:54 101/71 10/09/16 11:53 36.9 98 20 118/72 100 Mask 10 10/09/16 11:53 99 18 10/09/16 11:53 99 18 99 Physical Exam General Appearance: no apparent distress ENT: hearing grossly normal Neck: supple Respiratory/Chest: lungs clear, no respiratory distress, no accessory muscle use Cardiovascular: regular rate, rhythm, no murmur Abdomen: normal bowel sounds, soft, no organomegaly, + guarding (there is guarding and withdrawl with palpation of abdomen x 4 quadrants) Neurologic/Psych: alert Skin: normal color, no jaundice Laboratory Results Last 24 Hours Test 10/09/16 10:28 10/09/16 12:17 10/09/16 12:50 10/09/16 16:12 Bedside Glucose 202 mg/dl 161 mg/dl 161 mg/dl 156 mg/dl Test 10/09/16 23:52 10/10/16 05:55 10/10/16 06:40 10/10/16 08:14 Bedside Glucose 167 mg/dl 162 mg/dl White Blood Count 21.17 K/uL Red Blood Count 4.20 M/uL Hemoglobin 12.9 g/dL Hematocrit 37.6 % Mean Corpuscular Volume 89.5 fL Mean Corpuscular Hemoglobin 30.7 pg Mean Corpuscular Hemoglobin Concent 34.3 g/dl Platelet Count 295 K/uL Mean Platelet Volume 10.2 fL RDW Standard Deviation 54.6 fL RDW Coefficient of Variation 17.1 % Lactic Acid Level 1.2 mmol/L Assessment and Plan Avoid ASA and NSAIDs x 5 days Broad spectrum ABX x 2 weeks Continue symptomatic management ERCP w/ stent removal in 6 weeks - we will contact Ms. Valencia regarding timing. Cholecystectomy per surgery. LFTs daily GI to sign off. Please call with any questions or concerns. I saw and evaluated the patient. She underwent ERCP yesterday with biliary stent placement and removal of a common bile duct stone. She was found to have evidence of cholangitis. Of note she seems to be lethargic still. Recommendations Patient should continue broad-spectrum antibiotics for 2 weeks Daily labs We'll plan for repeat ERCP in 6-8 weeks
--- NOTE | 2016-10-10 09:41 | Surgery Progress Note ---
Surgery Progress Note Date of Service Oct 10, 2016. 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 Valencia responds with a "uh-huh" to questions and no to pain. However it was the same response with every question says she was irritable overnight pulling at her IVs and restless. States she is doing a littler better this morning. Objective Vital Signs: Date Time Temp Pulse Resp B/P (MAP) Pulse Ox O2 Delivery O2 Flow Rate FiO2 10/10/16 08:00 Room Air 10/10/16 07:36 36.7 117 18 144/87 (106) 94 Room Air 10/10/16 04:07 36.9 118 18 146/78 (100) 93 10/10/16 04:00 Room Air 10/10/16 00:01 Room Air 10/09/16 23:09 36.9 99 18 154/63 (93) 95 Room Air 10/09/16 20:00 Room Air 10/09/16 19:49 36.7 94 16 131/70 (90) 92 Room Air 10/09/16 15:51 36.8 101 18 118/58 (78) 92 Room Air 10/09/16 15:48 36.9 95 16 109/69 (82) 95 Room Air 10/09/16 15:14 Room Air 10/09/16 14:54 36.9 90 18 154/78 (103) 92 Room Air 10/09/16 14:05 36.7 92 16 131/81 (98) 94 Room Air 10/09/16 13:26 36.9 93 18 135/83 (100) 94 Room Air 10/09/16 13:05 Room Air 10/09/16 13:04 36.9 95 18 145/81 (102) 94 Nasal Cannula 10/09/16 12:50 36.9 92 22 134/77 (96) 99 Nasal Cannula 2.0 10/09/16 12:28 36.9 10/09/16 12:27 89 19 100 10/09/16 12:27 90 19 10/09/16 12:26 157/76 10/09/16 12:22 90 27 10/09/16 12:22 96 27 93 10/09/16 12:21 135/66 10/09/16 12:17 91 17 100 10/09/16 12:17 91 17 10/09/16 12:16 140/62 10/09/16 12:12 91 15 100 10/09/16 12:12 91 15 10/09/16 12:11 152/63 10/09/16 12:08 91 16 100 10/09/16 12:08 91 16 10/09/16 12:06 132/63 10/09/16 12:03 93 19 10/09/16 12:03 93 19 100 10/09/16 12:01 113/72 10/09/16 11:58 94 13 100 10/09/16 11:58 94 13 10/09/16 11:56 118/72 10/09/16 11:54 101/71 10/09/16 11:53 36.9 98 20 118/72 100 Mask 10 10/09/16 11:53 99 18 10/09/16 11:53 99 18 99 General Appearance: no apparent distress Head: normocephalic, atraumatic Neck: trachea midline Respiratory/Chest: lungs clear, normal breath sounds, no respiratory distress, no accessory muscle use Cardiovascular: + irregularly irregular Abdomen: normal bowel sounds, non distended, soft, + pertinent finding ( patient seems to guard the abdomen with arms however abdominal exam soft and no involuntary guarding of the RUQ on deep palpation, no grimmace on deep palpation ) Laboratory Results: Results Past 24 Hours Test 10/09/16 10:28 10/09/16 12:17 10/09/16 12:50 10/09/16 16:12 Range/Units Bedside Glucose 202 161 161 156 70-90 mg/dl Test 10/09/16 23:52 10/10/16 05:55 10/10/16 06:40 10/10/16 09:31 Range/Units Bedside Glucose 167 162 70-90 mg/dl White Blood Count 21.17 4.8-10.8 K/uL Red Blood Count 4.20 4.2-5.4 M/uL Hemoglobin 12.9 12.0-16.0 g/dL Hematocrit 37.6 37-47 % Mean Corpuscular Volume 89.5 80-100 fL Mean Corpuscular Hemoglobin 30.7 25-34 pg Mean Corpuscular Hemoglobin Concent 34.3 32-36 g/dl Platelet Count 295 130-400 K/uL Mean Platelet Volume 10.2 7.4-10.4 fL RDW Standard Deviation 54.6 36.4-46.3 fL RDW Coefficient of Variation 17.1 11.5-14.5 % Neutrophils % (Manual) 87.0 % Lymphocytes % (Manual) 3.5 % Monocytes % (Manual) 4.3 % Metamyelocytes % 3.5 % Myelocytes % 1.7 % Neutrophils # (Manual) 18.42 1.4-6.5 K/uL Total Absolute Neutrophils 18.42 1.4-6.5 K/uL Lymphocytes # (Manual) 0.74 1.2-3.4 K/uL Total Absolute Lymphocytes 0.74 1.2-3.4 K/uL Monocytes # (Manual) 0.91 0.11-0.59 K/uL Metamyelocytes # 0.74 0-0 K/uL Myelocytes # 0.36 0-0 K/uL Polychromasia 1+ Anisocytosis PRESENT Echinocytes 2+ Lactic Acid Level 1.2 0.4-2.0 mmol/L Assessment & Plan Choledocholithiasis with Acute Cholangitis and concern for Calculous Cholecystitis - Afebrile - Leukocytosis of 21.17 today slight improvement (22.19 yesterday) - ERCP showing choledocholithiasis and pus consistent with acute cholangitis , stent was placed and a biliary sphincterotomy performed - ECHO shows 60-65 % EF - Altered Mental status - LFTS improving, trending down - Total Bilirubin 3.3 increased compared to yesterday - Preliminary Blood culture is negative - Hypernatremia of 165 today nephrology consulted Plan: Continue IV antibiotics Nephrology consultation Continue current medical management Once patient is more stable will discuss laparoscopic cholecystectomy Repeat am labs, trend WBC, LFTS, and total bilirubin Dr. Carter has seen patient and agrees with above.
[2016-10-10 10:00] VITALS: BP 136/79; PULSE 105; TEMP 36.5; O2SAT 92
[2016-10-10] MEDS ORDERED: VANCOMYCIN INJ 1,200 MG in SODIUM CHLORIDE 0.9% 250ML 250 ML IV SCH (10:00)
[2016-10-10 10:22] LABS: ALB/GLOB RATIO 0.7 (0.9-2); BUN/CREATININE RATIO 8.9 (10-20); CALCIUM 9.3 mg/dl (8.5-10.1); CREATININE 1.4 mg/dl (0.60-1.20); POTASSIUM 2.8 mmol/L (3.5-5.1)
[2016-10-10] MEDS ORDERED: DEXTROSE 5% 1000ML 1,000 ML IV SCH (11:45)
[2016-10-10 11:51] LABS: BUN/CREATININE RATIO 10.1 (10-20); CALCIUM 8.9 mg/dl (8.5-10.1); CREATININE 1.4 mg/dl (0.60-1.20); POTASSIUM 2.7 mmol/L (3.5-5.1)
--- NOTE | 2016-10-10 14:27 | Medical Student: [facility] ---
Med Student Progress Note Date of Service Oct 10, 2016. Subjective Pt evaluation today including: conversation w/ patient, conversation w/ family , physical exam, chart review, lab review, review of studies Pain: No pain PO Intake: NPO transition to clear liquid diet Altered mental status (i.e. minimal verbal responses, not very alert) is slightly improved from yesterday. Ms. Valencia denies RUQ pain, fever, chills, nausea, and vomiting. Review of Systems Constitutional: + see HPI Eyes: No redness, No discharge ENT: No nasal symptoms, No sore throat Respiratory: No cough, No sputum, No wheezing Cardiac: No chest pain, No orthopnea Abdomen: No pain, No nausea, No vomiting, No diarrhea Neurologic: + see HPI Psychiatric: + see HPI Skin: No rash Objective Vital Signs Date Time Temp Pulse Resp B/P (MAP) Pulse Ox O2 Delivery O2 Flow Rate FiO2 10/10/16 08:00 Room Air 10/10/16 07:36 36.7 117 18 144/87 (106) 94 Room Air 10/10/16 04:07 36.9 118 18 146/78 (100) 93 10/10/16 04:00 Room Air 10/10/16 00:01 Room Air 10/09/16 23:09 36.9 99 18 154/63 (93) 95 Room Air 10/09/16 20:00 Room Air 10/09/16 19:49 36.7 94 16 131/70 (90) 92 Room Air 10/09/16 15:51 36.8 101 18 118/58 (78) 92 Room Air 10/09/16 15:48 36.9 95 16 109/69 (82) 95 Room Air 10/09/16 15:14 Room Air 10/09/16 14:54 36.9 90 18 154/78 (103) 92 Room Air Physical Exam General Appearance: WD/WN, + mild distress Eyes: bilateral eyes normal inspection Neck: supple, no adenopathy Respiratory/Chest: lungs clear, normal breath sounds, no respiratory distress Cardiovascular: regular rate, rhythm Abdomen: non tender (no guarding ), soft Skin: warm/dry Laboratory Results Last 24 Hours Test 10/09/16 16:12 10/09/16 23:52 10/10/16 05:55 10/10/16 06:40 Bedside Glucose 156 mg/dl 167 mg/dl 162 mg/dl White Blood Count 21.17 K/uL Red Blood Count 4.20 M/uL Hemoglobin 12.9 g/dL Hematocrit 37.6 % Mean Corpuscular Volume 89.5 fL Mean Corpuscular Hemoglobin 30.7 pg Mean Corpuscular Hemoglobin Concent 34.3 g/dl Platelet Count 295 K/uL Mean Platelet Volume 10.2 fL RDW Standard Deviation 54.6 fL RDW Coefficient of Variation 17.1 % Neutrophils % (Manual) 87.0 % Lymphocytes % (Manual) 3.5 % Monocytes % (Manual) 4.3 % Metamyelocytes % 3.5 % Myelocytes % 1.7 % Neutrophils # (Manual) 18.42 K/uL Total Absolute Neutrophils 18.42 K/uL Lymphocytes # (Manual) 0.74 K/uL Total Absolute Lymphocytes 0.74 K/uL Monocytes # (Manual) 0.91 K/uL Metamyelocytes # 0.74 K/uL Myelocytes # 0.36 K/uL Polychromasia 1+ Anisocytosis PRESENT Echinocytes 2+ Lactic Acid Level 2.1 mmol/L Test 10/10/16 09:31 10/10/16 11:05 10/10/16 11:58 Sodium Level 165 mmol/L 165 mmol/L Potassium Level 2.8 mmol/L 2.7 mmol/L Chloride Level 132 mmol/L 133 mmol/L Carbon Dioxide Level 23 mmol/L 23 mmol/L Anion Gap 9.0 mmol/L 9.0 mmol/L Blood Urea Nitrogen 12 mg/dl 14 mg/dl Creatinine 1.40 mg/dl 1.40 mg/dl Est Creatinine Clear Calc Drug Dose 29.2 ml/min 29.2 ml/min Estimated GFR () 41.0 41.0 Estimated GFR (Non- 35.4 35.4 BUN/Creatinine Ratio 8.9 10.1 Random Glucose 218 mg/dl 210 mg/dl Calcium Level 9.3 mg/dl 8.9 mg/dl Total Bilirubin 3.3 mg/dl Aspartate Amino Transf (AST/SGOT) 394 U/L Alanine Aminotransferase (ALT/SGPT) 520 U/L Alkaline Phosphatase 279 U/L Total Protein 6.1 gm/dl Albumin 2.5 gm/dl Globulin 3.6 gm/dl Albumin/Globulin Ratio 0.7 Bedside Glucose 178 mg/dl Assessment and Plan Assessment and Plan: Assessment and Plan: 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 ERCP was successful in placing a stent in the common bile duct. WBC (21.2), AST (394), ALT (520), and Alk phos (279) are trending down slightly , but remain significantly elevated. From 10/10/16: WBC (22), AST (576), ALT (608), and Alk Phos (306). GI made the following recommendations: clear liquid diet 2 wk course of broad spectrum Abx No ASA or NSAIDs for 5 days repeat ERCP in 6 wks refer for cholecystectomy s/p day 3 of Abx therapy: vancomycin HCL 1200mg- 274ml @ 125mls/hr aztreonam 1000mg/dextrose 110ml @ 1100mls/hr metronidazole 500mg 100ml @ 100mls/hr hypernatremia: will d/c IV fluids may increase desmopressin acetate of 0.1mg PO panhypopituitarism: will continue hydrocortisone 15mg PO AM and 5mg PO PM; 50mg PO stress dose determined each day during hospital stay. will continue synthroid 125umg PO daily ATTENDING STATEMENT: Please see the resident physician note along with my documentation of the same date.
[2016-10-10] MEDS ORDERED: POTASSIUM CHLORIDE 20 MEQ TABCR PO ONE (14:30)
[2016-10-10 15:10] VITALS: BP 149/82; PULSE 95; TEMP 36.6; O2SAT 93
[2016-10-10] MEDS ORDERED: DESMOPRESSIN ACETATE INJ 2 MCG in SODIUM CHLORIDE 0.9% 50ML 50 ML IV SCH (15:30)
[2016-10-10] MEDS ORDERED: NURSING VERBAL MED ORDER ONE (15:30)
[2016-10-10 15:53] LABS: BUN/CREATININE RATIO 9.7 (10-20); CREATININE 1.5 mg/dl (0.60-1.20)
[2016-10-10 16:06] LABS: BETA-HYDROXYBUTYRATE 0.88 mg/dL (0.2-2.81)
--- NOTE | 2016-10-10 16:52 | Nephrology Consultation ---
Nephrology Consultation Date & Providers Date of Consultation: Oct 10, 2016. Primary Care Provider: Dank Carrillo M.D. Referring Provider: Reason for Consultation Hypernatremia, DI History of Present Illness Yoav Valencia is an 81 year-old female with a complicated medical history notable for panhypopituitarism. 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 Davies at [facility]. She was experiencing visual loss prior to surgery, unfortunately that has not improved. She was subsequently hospitalized at [facility] for fall and neck fracture. She was discharged on replacement therapy for both anterior and posterior pituitary function. She continues to follow with Dr. Fung in the endocrinology clinic. Diabetes insipidus re-evaluated December 2015. 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 She has been maintained on DDAVP just daily to prevent. This is complicated by abnormal bladder function, often experiencing frequency but very low urine volumes. She is maintained on thyroid hormone replacement as well as hydrocortisone. She was started on chlorthalidone in the past for hypercalciuria and a history of recurrent nephrolithiasis. Yoav presented to [facility] on 10/08/16 with mental status changes. She was diagnosed with calculous cholecystitis. ERCP was performed yesterday. Serum sodium was 132 mmol/L on admission. The patient was confused this morning. She was not able to take free water independently. Repeat laboratory studies this morning documented a sodium of 165 mmol/L. The patient was polyuric overnight. She has been maintained on desmopressin 1 mcg QD. IV D5w was started at 120-200 ml/hr. Repeat metabolic profile documents serum sodium improved to 155 mmol/L. Urine osmolality is now >600. She has received additional 2 mcg SQ desmopressin. She is taking oral fluids adequately. Urine output per shift has dropped from 1300 to 650 ml. 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) Urinary frequency History of Rathke's cleft cyst Homonymous hemianopsia Recurrent UTI Surgical: Cataract Surgery Craniotomy Tumor Removal Polypectomy Salpingo-oophorectomy Allergies Coded Allergies: Amoxicillin (Verified Allergy, Intermediate, Swelling of Lips, 09/04/16) Ciprofloxacin (Verified Allergy, Intermediate, RASH, NAUSEA, 09/04/16) Sulfa Antibiotics (Verified Allergy, Intermediate, RASH, 09/04/16) Biotin (Verified Allergy, Unknown, UNKN, 09/04/16) Cefepime (Verified Adverse Reaction, Severe, HALLUCINATIONS, 09/04/16) Diphenhydramine (Verified Adverse Reaction, Severe, HYPER INSOMNIA, ) Imipenem (Verified Adverse Reaction, Severe, HALLUCINATIONS, 09/04/16) Mirtazapine (Verified Adverse Reaction, Intermediate, altered mental status changes, 09/04/16) Nitrofurantoin (Verified Adverse Reaction, Intermediate, CHEST PAIN, CONFUSION, 09/04/16) Oxycodone (Verified Adverse Reaction, Mild, N/V, 09/04/16) Inpatient Medications Current Inpatient Medications Medications (Trade) Dose Ordered Sig/Natalee Route Start Time Stop Time Status Last Admin Dose Admin Metronidazole 500 mg/Prmx 100 ml @ 100 mls/hr Q8H IV 10/09/16 08:00 10/19/16 07:59 10/10/16 07:44 100 MLS/HR Aztreonam 1000 mg/ Dextrose 110 ml @ 100 mls/hr Q8H IV 10/09/16 10:00 10/19/16 09:59 10/10/16 09:32 100 MLS/HR Calcitriol (Rocaltrol Cap) 0.25 mcg DAILY PO 10/09/16 09:00 11/08/16 08:59 10/10/16 07:45 0.25 MCG Latanoprost (Xalatan Oph Soln) 1 drops HS OPB 10/09/16 21:00 11/08/16 20:59 10/09/16 20:27 1 DROPS Artificial Tears (Artificial Tears) 1 drops Q4H PRN OP 10/09/16 01:15 11/08/16 01:14 Desmopressin Acetate (Desmopressin Acetate) 0.1 mg DAILY PO 10/09/16 09:00 11/08/16 08:59 10/10/16 07:45 0.1 MG Hydrocortisone Sodium Succinate 50 mg/Syringe 1 ml @ 4 mls/min Q8H IV 10/09/16 03:00 11/08/16 02:59 10/10/16 10:53 4 MLS/MIN Insulin Aspart (novoLOG ASPART) SLIDING SCALE G... Q6 SC 10/09/16 06:00 11/08/16 05:59 10/10/16 14:06 1 UNITS Levothyroxine Sodium 62.5 mcg/ Syringe 3.125 ml @ 1.563 mls/ min DAILY@09 IV 10/09/16 09:00 11/08/16 08:59 10/10/16 08:49 1.563 MLS/MIN Aztreonam (Consult) 1 ea UD PRN N/A 10/09/16 05:15 11/08/16 05:14 Vancomycin HCl (Consult) 1 ea UD PRN N/A 10/09/16 10:15 11/08/16 10:14 Vancomycin HCl 1200 mg/Sodium Chloride 274 ml @ 125 mls/hr Q24H IV 10/11/16 11:00 10/20/16 10:59 Pantoprazole Sodium (Protonix Tab) 40 mg QAM PO 10/11/16 09:00 11/10/16 08:59 Family History Bladder cancer MOTHER Breast cancer SISTER FH: kidney disease FHx: heart disease Skin cancer MOTHER Social History Smoking Status: Former Smoker Drug Use: none Marital Status: Housing Status: lives with family Occupation: retired Review of Systems A complete review of systems was performed. Pertinent positives are noted above. All other systems are negative. Physical Exam Date Time Temp Pulse Resp B/P (MAP) Pulse Ox O2 Delivery O2 Flow Rate FiO2 10/10/16 15:10 36.6 95 18 149/82 (104) 93 Room Air 10/10/16 10:00 Room Air 10/10/16 10:00 36.5 105 18 136/79 (98) 92 Room Air 10/10/16 08:00 Room Air 10/10/16 07:36 36.7 117 18 144/87 (106) 94 Room Air 10/10/16 04:07 36.9 118 18 146/78 (100) 93 10/10/16 04:00 Room Air 10/10/16 00:01 Room Air 10/09/16 23:09 36.9 99 18 154/63 (93) 95 Room Air 10/09/16 20:00 Room Air 10/09/16 19:49 36.7 94 16 131/70 (90) 92 Room Air General Appearance: WD/WN, no apparent distress Head: normocephalic, atraumatic Eyes: normal inspection, sclerae normal ENT: normal ENT inspection, pharynx normal Neck: supple, no JVD Respiratory/Chest: lungs clear, no respiratory distress, no accessory muscle use Cardiovascular: regular rate, rhythm, no murmur Abdomen/GI: non tender, soft Extremities/Musculoskelatal: normal inspection, no pedal edema Neurologic/Psych: alert, normal mood/affect Skin: normal color Laboratory Results Last 24 Hours Test 10/09/16 23:52 10/10/16 05:55 10/10/16 06:40 10/10/16 09:31 Bedside Glucose 167 mg/dl 162 mg/dl White Blood Count 21.17 K/uL Red Blood Count 4.20 M/uL Hemoglobin 12.9 g/dL Hematocrit 37.6 % Mean Corpuscular Volume 89.5 fL Mean Corpuscular Hemoglobin 30.7 pg Mean Corpuscular Hemoglobin Concent 34.3 g/dl Platelet Count 295 K/uL Mean Platelet Volume 10.2 fL RDW Standard Deviation 54.6 fL RDW Coefficient of Variation 17.1 % Neutrophils % (Manual) 87.0 % Lymphocytes % (Manual) 3.5 % Monocytes % (Manual) 4.3 % Metamyelocytes % 3.5 % Myelocytes % 1.7 % Neutrophils # (Manual) 18.42 K/uL Total Absolute Neutrophils 18.42 K/uL Lymphocytes # (Manual) 0.74 K/uL Total Absolute Lymphocytes 0.74 K/uL Monocytes # (Manual) 0.91 K/uL Metamyelocytes # 0.74 K/uL Myelocytes # 0.36 K/uL Polychromasia 1+ Anisocytosis PRESENT Echinocytes 2+ Lactic Acid Level 2.1 mmol/L Sodium Level 165 mmol/L Potassium Level 2.8 mmol/L Chloride Level 132 mmol/L Carbon Dioxide Level 23 mmol/L Anion Gap 9.0 mmol/L Blood Urea Nitrogen 12 mg/dl Creatinine 1.40 mg/dl Est Creatinine Clear Calc Drug Dose 29.2 ml/min Estimated GFR () 41.0 Estimated GFR (Non- 35.4 BUN/Creatinine Ratio 8.9 Random Glucose 218 mg/dl Calcium Level 9.3 mg/dl Total Bilirubin 3.3 mg/dl Aspartate Amino Transf (AST/SGOT) 394 U/L Alanine Aminotransferase (ALT/SGPT) 520 U/L Alkaline Phosphatase 279 U/L Total Protein 6.1 gm/dl Albumin 2.5 gm/dl Globulin 3.6 gm/dl Albumin/Globulin Ratio 0.7 Test 10/10/16 11:05 10/10/16 11:58 10/10/16 14:44 10/10/16 15:16 Sodium Level 165 mmol/L 155 mmol/L Potassium Level 2.7 mmol/L 3.0 mmol/L Chloride Level 133 mmol/L 124 mmol/L Carbon Dioxide Level 23 mmol/L 20 mmol/L Anion Gap 9.0 mmol/L 11.0 mmol/L Blood Urea Nitrogen 14 mg/dl 15 mg/dl Creatinine 1.40 mg/dl 1.50 mg/dl Est Creatinine Clear Calc Drug Dose 29.2 ml/min 29.2 ml/min Estimated GFR () 41.0 37.7 Estimated GFR (Non- 35.4 32.6 BUN/Creatinine Ratio 10.1 9.7 Random Glucose 210 mg/dl 318 mg/dl Calcium Level 8.9 mg/dl 8.0 mg/dl Bedside Glucose 178 mg/dl Urine Osmolality 615 mOms/kg Beta-Hydroxybutyric Acid 0.88 mg/dL Impression (1) Primary central diabetes insipidus (2) Acute hypernatremia (3) Hypokalemia (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 Thirst mechanism is intact. She is maintained on a daily dose of DDAVP as an outpatient and has maintained a normal baseline serum sodium. She developed acute hypernatremia with symptoms this morning. Urine output and osmolality now consistent with appropriate ADH response. Serum sodium correcting slightly greater than 2 mmol/hr. IV water has been discontinued. The patient is drinking. Oral intake appropriate with thirst is encouraged. At this time, fluid intake should not signfiicant exceed urine output. I suspect 1.5 liters over the next 12 hours would be appropriate. Limiting fluid intake to slow the rate of correction is advised. She will restart desmopressin 1 mcg daily PO per her home regimen in the AM. Serum sodium should be monitored frequently q3-4 hours over the next 24 hours. Recommendations -- Discontinue IVF -- Drink to thirst (avoid fluid intake significantly > than UOP) -- Desmopressin 1 mcg daily PO -- Document I/O's -- Monitor metabolic profile q 3-4 hours -- Serial neurologic exam -- Replete potassium with oral KCl
[2016-10-10 20:43] LABS: BUN/CREATININE RATIO 10.6 (10-20); CREATININE 1.5 mg/dl (0.60-1.20)
[2016-10-10] MEDS: LATANOPROST 0.005% OP SOLN 2.5 ML BTL OPB SCH (20:44)
[2016-10-10 20:48] LABS: POTASSIUM 3.5 mmol/L (3.5-5.1)
[2016-10-10 23:48] VITALS: BP 128/78; PULSE 88; TEMP 36.7; O2SAT 94
[2016-10-11 00:14] LABS: BUN/CREATININE RATIO 13.2 (10-20); CALCIUM 7.8 mg/dl (8.5-10.1); CREATININE 1.2 mg/dl (0.60-1.20); POTASSIUM 3.2 mmol/L (3.5-5.1)
[2016-10-11] MEDS: HYDROCORTISONE IV 50 MG in SYRINGE 0 ML IV SCH ×3 (02:10→19:49)
[2016-10-11] MEDS: METRONIDAZOLE / NSS 500 MG in PREMIXED NSS 100 ML IV SCH ×2 (02:10→09:08)
[2016-10-11 04:06] LABS: HEMATOCRIT 29.4 % (37-47); MEAN CELL VOLUME 87.5 fL (80-100); MEAN CORPUSCULAR HGB CONC 35.4 g/dl (32-36); MEAN PLATELET VOLUME 9.7 fL (7.4-10.4); PLATELET COUNT 214 K/uL (130-400); RED BLOOD COUNT 3.36 M/uL (4.2-5.4); WHITE BLOOD COUNT 15.22 K/uL (4.8-10.8)
[2016-10-11] MEDS: AZTREONAM IV 1,000 MG in DEXTROSE 5% 100ML 100 ML IV SCH (04:10)
[2016-10-11 04:33] LABS: BUN/CREATININE RATIO 13.5 (10-20); CREATININE 1.3 mg/dl (0.60-1.20)
[2016-10-11 04:36] LABS: ALB/GLOB RATIO 0.7 (0.9-2)
[2016-10-11 04:39] LABS: CALCIUM 7.8 mg/dl (8.5-10.1)
[2016-10-11] MEDS: INSULIN ASPART 100 UNITS/ML 3 ML PEN SC SCH ×6 (05:29→21:35)
[2016-10-11] MEDS ORDERED: POTASSIUM CHLORIDE 20 MEQ TABCR PO ONE ×2 (07:30→10:45)
[2016-10-11] MEDS ORDERED: NURSING VERBAL MED ORDER ONE (07:30)
[2016-10-11 07:45] VITALS: O2SAT 94
--- NOTE | 2016-10-11 07:54 | Gastroenterology Progress Note ---
Progress Note Date of Service: Oct 11, 2016 Subjective Pt evaluation today including: conversation w/ patient, conversation w/ family , physical exam, chart review Pt was seen and evaluated this AM. Family and home care provider at bedside. They tell me Ms. Valencia slept well last night, still not at her baseline mentation but slowing improving. She responds yes to every question I asked her this morning. Transaminases slowing improving, TB remains elevated, WBC remains elevated, NA 155. ROS not obtained due to patient mentation. Medications Current Inpatient Medications Medications (Trade) Dose Ordered Sig/Natalee Route Start Time Stop Time Status Last Admin Dose Admin Metronidazole 500 mg/Prmx 100 ml @ 100 mls/hr Q8H IV 10/09/16 08:00 10/19/16 07:59 10/11/16 02:10 100 MLS/HR Aztreonam 1000 mg/ Dextrose 110 ml @ 100 mls/hr Q8H IV 10/09/16 10:00 10/19/16 09:59 10/11/16 04:10 100 MLS/HR Calcitriol (Rocaltrol Cap) 0.25 mcg DAILY PO 10/09/16 09:00 11/08/16 08:59 10/10/16 07:45 0.25 MCG Latanoprost (Xalatan Oph Soln) 1 drops HS OPB 10/09/16 21:00 11/08/16 20:59 10/10/16 20:44 1 DROPS Artificial Tears (Artificial Tears) 1 drops Q4H PRN OP 10/09/16 01:15 11/08/16 01:14 Desmopressin Acetate (Desmopressin Acetate) 0.1 mg DAILY PO 10/09/16 09:00 11/08/16 08:59 10/10/16 07:45 0.1 MG Hydrocortisone Sodium Succinate 50 mg/Syringe 1 ml @ 4 mls/min Q8H IV 10/09/16 03:00 11/08/16 02:59 10/11/16 02:10 4 MLS/MIN Levothyroxine Sodium 62.5 mcg/ Syringe 3.125 ml @ 1.563 mls/ min DAILY@09 IV 10/09/16 09:00 11/08/16 08:59 10/10/16 08:49 1.563 MLS/MIN Aztreonam (Consult) 1 ea UD PRN N/A 10/09/16 05:15 11/08/16 05:14 Vancomycin HCl (Consult) 1 ea UD PRN N/A 10/09/16 10:15 11/08/16 10:14 Vancomycin HCl 1200 mg/Sodium Chloride 274 ml @ 125 mls/hr Q24H IV 10/11/16 11:00 10/20/16 10:59 Pantoprazole Sodium (Protonix Tab) 40 mg QAM PO 10/11/16 09:00 11/10/16 08:59 Heparin Sodium (Porcine) (Heparin 10 Unit/ ml 5 ml Flush) 5 ml PRN PRN FLUSH 10/10/16 19:00 11/09/16 18:59 10/11/16 05:21 5 ML Insulin Aspart (novoLOG ASPART) SLIDING SCALE G... ACHS SC 10/11/16 08:00 11/10/16 07:59 Objective Vital Signs Date Time Temp Pulse Resp B/P (MAP) Pulse Ox O2 Delivery O2 Flow Rate FiO2 10/10/16 23:48 36.7 88 16 128/78 (95) 94 Room Air 10/10/16 23:32 Room Air 10/10/16 17:00 Room Air 10/10/16 15:10 36.6 95 18 149/82 (104) 93 Room Air 10/10/16 10:00 Room Air 10/10/16 10:00 36.5 105 18 136/79 (98) 92 Room Air 10/10/16 08:00 Room Air Physical Exam General Appearance: no apparent distress Respiratory/Chest: lungs clear Cardiovascular: regular rate, rhythm Abdomen: normal bowel sounds, soft, no organomegaly, + pertinent finding (no guarding) Skin: normal color, warm/dry, no rash Laboratory Results Last 24 Hours Test 10/10/16 09:31 10/10/16 11:05 10/10/16 11:58 10/10/16 14:44 Sodium Level 165 mmol/L 165 mmol/L Potassium Level 2.8 mmol/L 2.7 mmol/L Chloride Level 132 mmol/L 133 mmol/L Carbon Dioxide Level 23 mmol/L 23 mmol/L Anion Gap 9.0 mmol/L 9.0 mmol/L Blood Urea Nitrogen 12 mg/dl 14 mg/dl Creatinine 1.40 mg/dl 1.40 mg/dl Est Creatinine Clear Calc Drug Dose 29.2 ml/min 29.2 ml/min Estimated GFR () 41.0 41.0 Estimated GFR (Non- 35.4 35.4 BUN/Creatinine Ratio 8.9 10.1 Random Glucose 218 mg/dl 210 mg/dl Calcium Level 9.3 mg/dl 8.9 mg/dl Total Bilirubin 3.3 mg/dl Aspartate Amino Transf (AST/SGOT) 394 U/L Alanine Aminotransferase (ALT/SGPT) 520 U/L Alkaline Phosphatase 279 U/L Total Protein 6.1 gm/dl Albumin 2.5 gm/dl Globulin 3.6 gm/dl Albumin/Globulin Ratio 0.7 Bedside Glucose 178 mg/dl Urine Osmolality 615 mOms/kg Test 10/10/16 15:16 10/10/16 17:24 10/10/16 20:09 10/10/16 20:30 Sodium Level 155 mmol/L 155 mmol/L Potassium Level 3.0 mmol/L 3.5 mmol/L Chloride Level 124 mmol/L 124 mmol/L Carbon Dioxide Level 20 mmol/L 21 mmol/L Anion Gap 11.0 mmol/L 10.0 mmol/L Blood Urea Nitrogen 15 mg/dl 16 mg/dl Creatinine 1.50 mg/dl 1.50 mg/dl Est Creatinine Clear Calc Drug Dose 29.2 ml/min 29.2 ml/min Estimated GFR () 37.7 37.7 Estimated GFR (Non- 32.6 32.6 BUN/Creatinine Ratio 9.7 10.6 Random Glucose 318 mg/dl 242 mg/dl Calcium Level 8.0 mg/dl 8.0 mg/dl Beta-Hydroxybutyric Acid 0.88 mg/dL Bedside Glucose 281 mg/dl 206 mg/dl Test 10/10/16 23:36 10/10/16 23:40 10/11/16 04:00 10/11/16 05:25 Sodium Level 156 mmol/L 153 mmol/L Potassium Level 3.2 mmol/L 3.0 mmol/L Chloride Level 123 mmol/L 120 mmol/L Carbon Dioxide Level 24 mmol/L 26 mmol/L Anion Gap 8.0 mmol/L 7.0 mmol/L Blood Urea Nitrogen 16 mg/dl 18 mg/dl Creatinine 1.20 mg/dl 1.30 mg/dl Est Creatinine Clear Calc Drug Dose 36.5 ml/min 33.7 ml/min Estimated GFR () 49.4 44.9 Estimated GFR (Non- 42.7 38.7 BUN/Creatinine Ratio 13.2 13.5 Random Glucose 165 mg/dl 153 mg/dl Calcium Level 7.8 mg/dl 7.8 mg/dl Bedside Glucose 149 mg/dl 166 mg/dl White Blood Count 15.22 K/uL Red Blood Count 3.36 M/uL Hemoglobin 10.4 g/dL Hematocrit 29.4 % Mean Corpuscular Volume 87.5 fL Mean Corpuscular Hemoglobin 31.0 pg Mean Corpuscular Hemoglobin Concent 35.4 g/dl RDW Standard Deviation 54.0 fL RDW Coefficient of Variation 17.1 % Platelet Count 214 K/uL Mean Platelet Volume 9.7 fL Nucleated RBC Absolute Count (auto) 0.03 K/uL Nucleated Red Blood Cells % 0.2 % Total Bilirubin 3.2 mg/dl Direct Bilirubin 2.6 mg/dl Aspartate Amino Transf (AST/SGOT) 352 U/L Alanine Aminotransferase (ALT/SGPT) 459 U/L Alkaline Phosphatase 272 U/L Total Protein 5.4 gm/dl Albumin 2.2 gm/dl Globulin 3.2 gm/dl Albumin/Globulin Ratio 0.7 Assessment and Plan Avoid ASA and NSAIDs x 5 days Broad spectrum ABX x 2 weeks Continue symptomatic management ERCP w/ stent removal in 6 weeks - we will contact Ms. Valencia regarding timing. Cholecystectomy per surgery. LFTs daily GI to sign off. Will watch labs peripherally. Please call with any questions or concerns. I saw and evaluated the patient. Her mental status remains poor today, overall the labs look improved from admission with decreased WBC and decreasing AST/ALT. Recomendations: Repeat ERCP in 6 weeks 2 weeks antibiotic coverage Please call with questions.
[2016-10-11 08:00] VITALS: BP 164/76; PULSE 96; TEMP 36.4; O2SAT 93
--- NOTE | 2016-10-11 08:47 | Surgery Progress Note ---
Surgery Progress Note Date of Service Oct 11, 2016. Subjective Post OP Day: HD # 2, POD # 1 s/p ERCP Complete ROS could not be obtained given mental status however patient is more alert today than previous two encounters. She actually opens eyes when asked question about pain and answers no to any abdominal pain. Caregiver at bedside said she slept well last night, no agitation. Objective Vital Signs: Date Time Temp Pulse Resp B/P (MAP) Pulse Ox O2 Delivery O2 Flow Rate FiO2 10/10/16 23:48 36.7 88 16 128/78 (95) 94 Room Air 10/10/16 23:32 Room Air 10/10/16 17:00 Room Air 10/10/16 15:10 36.6 95 18 149/82 (104) 93 Room Air 10/10/16 10:00 Room Air 10/10/16 10:00 36.5 105 18 136/79 (98) 92 Room Air General Appearance: no apparent distress, + obese Head: normocephalic, atraumatic Neck: trachea midline Respiratory/Chest: no respiratory distress, no accessory muscle use, + decreased breath sounds Cardiovascular: regular rate, rhythm, no murmur Abdomen: non tender, non distended, soft Laboratory Results: Results Past 24 Hours Test 10/10/16 09:31 10/10/16 11:05 10/10/16 11:58 10/10/16 14:44 Range/Units Sodium Level 165 165 136-145 mmol/L Potassium Level 2.8 2.7 3.5-5.1 mmol/L Chloride Level 132 133 98-107 mmol/L Carbon Dioxide Level 23 23 21-32 mmol/L Anion Gap 9.0 9.0 3-11 mmol/L Blood Urea Nitrogen 12 14 7-18 mg/dl Creatinine 1.40 1.40 0.60-1.20 mg/dl Est Creatinine Clear Calc Drug Dose 29.2 29.2 ml/min Estimated GFR () 41.0 41.0 Estimated GFR (Non- 35.4 35.4 BUN/Creatinine Ratio 8.9 10.1 10-20 Random Glucose 218 210 70-99 mg/dl Calcium Level 9.3 8.9 8.5-10.1 mg/dl Total Bilirubin 3.3 0.2-1 mg/dl Aspartate Amino Transf (AST/SGOT) 394 15-37 U/L Alanine Aminotransferase (ALT/SGPT) 520 12-78 U/L Alkaline Phosphatase 279 45-117 U/L Total Protein 6.1 6.4-8.2 gm/dl Albumin 2.5 3.4-5.0 gm/dl Globulin 3.6 2.5-4.0 gm/dl Albumin/Globulin Ratio 0.7 0.9-2 Bedside Glucose 178 70-90 mg/dl Urine Osmolality 615 500-800 mOms/kg Test 10/10/16 15:16 10/10/16 17:24 10/10/16 20:09 10/10/16 20:30 Range/Units Sodium Level 155 155 136-145 mmol/L Potassium Level 3.0 3.5 3.5-5.1 mmol/L Chloride Level 124 124 98-107 mmol/L Carbon Dioxide Level 20 21 21-32 mmol/L Anion Gap 11.0 10.0 3-11 mmol/L Blood Urea Nitrogen 15 16 7-18 mg/dl Creatinine 1.50 1.50 0.60-1.20 mg/dl Est Creatinine Clear Calc Drug Dose 29.2 29.2 ml/min Estimated GFR () 37.7 37.7 Estimated GFR (Non- 32.6 32.6 BUN/Creatinine Ratio 9.7 10.6 10-20 Random Glucose 318 242 70-99 mg/dl Calcium Level 8.0 8.0 8.5-10.1 mg/dl Beta-Hydroxybutyric Acid 0.88 0.2-2.81 mg/dL Bedside Glucose 281 206 70-90 mg/dl Test 10/10/16 23:36 10/10/16 23:40 10/11/16 04:00 10/11/16 05:25 Range/Units Sodium Level 156 153 136-145 mmol/L Potassium Level 3.2 3.0 3.5-5.1 mmol/L Chloride Level 123 120 98-107 mmol/L Carbon Dioxide Level 24 26 21-32 mmol/L Anion Gap 8.0 7.0 3-11 mmol/L Blood Urea Nitrogen 16 18 7-18 mg/dl Creatinine 1.20 1.30 0.60-1.20 mg/dl Est Creatinine Clear Calc Drug Dose 36.5 33.7 ml/min Estimated GFR () 49.4 44.9 Estimated GFR (Non- 42.7 38.7 BUN/Creatinine Ratio 13.2 13.5 10-20 Random Glucose 165 153 70-99 mg/dl Calcium Level 7.8 7.8 8.5-10.1 mg/dl Bedside Glucose 149 166 70-90 mg/dl White Blood Count 15.22 4.8-10.8 K/uL Red Blood Count 3.36 4.2-5.4 M/uL Hemoglobin 10.4 12.0-16.0 g/dL Hematocrit 29.4 37-47 % Mean Corpuscular Volume 87.5 80-100 fL Mean Corpuscular Hemoglobin 31.0 25-34 pg Mean Corpuscular Hemoglobin Concent 35.4 32-36 g/dl RDW Standard Deviation 54.0 36.4-46.3 fL RDW Coefficient of Variation 17.1 11.5-14.5 % Platelet Count 214 130-400 K/uL Mean Platelet Volume 9.7 7.4-10.4 fL Nucleated RBC Absolute Count (auto) 0.03 0-0 K/uL Nucleated Red Blood Cells % 0.2 % Total Bilirubin 3.2 0.2-1 mg/dl Direct Bilirubin 2.6 0-0.2 mg/dl Aspartate Amino Transf (AST/SGOT) 352 15-37 U/L Alanine Aminotransferase (ALT/SGPT) 459 12-78 U/L Alkaline Phosphatase 272 45-117 U/L Total Protein 5.4 6.4-8.2 gm/dl Albumin 2.2 3.4-5.0 gm/dl Globulin 3.2 2.5-4.0 gm/dl Albumin/Globulin Ratio 0.7 0.9-2 Test 10/11/16 08:25 Range/Units Assessment & Plan Choledocholithiasis with Acute Cholangitis and concern for Calculous Cholecystitis - Afebrile - Leukocytosis improving 15. today - ERCP showing choledocholithiasis and pus consistent with acute cholangitis , stent was placed and a biliary sphincterotomy performed - ECHO shows 60-65 % EF - Altered Mental status, slowly improving - LFTS improving, trending down - Total Bilirubin 3.2 ,direct 2.6 (slowly trending down) - Preliminary Blood culture is negative - Hypernatremia Plan: Continue IV broad spectrum antibiotics Continue current medical management Continue pain management as needed [employer] on consult Correct Hypernatremia and hypokalemia will discuss Laparoscopic cholecystectomy next week, allow patient to become medically stable for surgery Dr. Carter has seen patient, agrees with above
[2016-10-11] MEDS: CALCITRIOL 0.25 MCG CAP PO SCH (08:58)
[2016-10-11] MEDS: PANTOprazole SOD 40 MG TAB PO SCH (08:58)
[2016-10-11] MEDS: DESMOPRESSIN ACETATE 0.1 MG TAB PO SCH (08:58)
[2016-10-11] MEDS: LEVOTHYROXINE SODIUM INJ 62.5 MCG in SYRINGE 0 ML IV SCH (08:58)
--- NOTE | 2016-10-11 09:02 | Family Medicine Progress Note ---
Progress Note Date of Service Oct 11, 2016. Subjective Pt evaluation today including: conversation w/ patient, conversation w/ family , physical exam Mrs. Patel was much more alert today, was able to respond to questions and denied any pain. Her was concerned about her sodium fluctuating up and down, we went through different aspects and reasons for this, and he reported that in the past her sodium has been as low as 129. He also mentioned that some of her home meds have not been restarted, which concerned him, mainly including eyedrops which she should get before and after her latanoprost drops for glaucoma. Additional Comments: Unable to obtain full review of systems due to altered mental status. Medications Current Inpatient Medications Medications (Trade) Dose Ordered Sig/Natalee Route Start Time Stop Time Status Last Admin Dose Admin Metronidazole 500 mg/Prmx 100 ml @ 100 mls/hr Q8H IV 10/09/16 08:00 10/19/16 07:59 10/11/16 02:10 100 MLS/HR Aztreonam 1000 mg/ Dextrose 110 ml @ 100 mls/hr Q8H IV 10/09/16 10:00 10/19/16 09:59 10/11/16 04:10 100 MLS/HR Calcitriol (Rocaltrol Cap) 0.25 mcg DAILY PO 10/09/16 09:00 11/08/16 08:59 10/10/16 07:45 0.25 MCG Latanoprost (Xalatan Oph Soln) 1 drops HS OPB 10/09/16 21:00 11/08/16 20:59 10/10/16 20:44 1 DROPS Artificial Tears (Artificial Tears) 1 drops Q4H PRN OP 10/09/16 01:15 11/08/16 01:14 Desmopressin Acetate (Desmopressin Acetate) 0.1 mg DAILY PO 10/09/16 09:00 11/08/16 08:59 10/10/16 07:45 0.1 MG Hydrocortisone Sodium Succinate 50 mg/Syringe 1 ml @ 4 mls/min Q8H IV 10/09/16 03:00 11/08/16 02:59 10/11/16 02:10 4 MLS/MIN Levothyroxine Sodium 62.5 mcg/ Syringe 3.125 ml @ 1.563 mls/ min DAILY@09 IV 10/09/16 09:00 11/08/16 08:59 10/10/16 08:49 1.563 MLS/MIN Aztreonam (Consult) 1 ea UD PRN N/A 10/09/16 05:15 11/08/16 05:14 Vancomycin HCl (Consult) 1 ea UD PRN N/A 10/09/16 10:15 11/08/16 10:14 Vancomycin HCl 1200 mg/Sodium Chloride 274 ml @ 125 mls/hr Q24H IV 10/11/16 11:00 10/20/16 10:59 Pantoprazole Sodium (Protonix Tab) 40 mg QAM PO 10/11/16 09:00 11/10/16 08:59 Heparin Sodium (Porcine) (Heparin 10 Unit/ ml 5 ml Flush) 5 ml PRN PRN FLUSH 10/10/16 19:00 11/09/16 18:59 10/11/16 08:25 5 ML Insulin Aspart (novoLOG ASPART) SLIDING SCALE G... ACHS SC 10/11/16 08:00 11/10/16 07:59 Ammonium Lactate (Lac-Hydrin) 1 appl UD EXT 10/11/16 09:00 11/10/16 08:59 UNV Artificial Tears (Artificial Tears) 2 drops UD OP 10/11/16 21:00 11/10/16 20:59 UNV Objective Vital Signs Date Time Temp Pulse Resp B/P (MAP) Pulse Ox O2 Delivery O2 Flow Rate FiO2 10/11/16 07:45 94 Room Air 10/10/16 23:48 36.7 88 16 128/78 (95) 94 Room Air 10/10/16 23:32 Room Air 10/10/16 17:00 Room Air 10/10/16 15:10 36.6 95 18 149/82 (104) 93 Room Air 10/10/16 10:00 Room Air 10/10/16 10:00 36.5 105 18 136/79 (98) 92 Room Air Physical Exam General Appearance: WD/WN, + mild distress Eyes: normal inspection, PERRL ENT: hearing grossly normal Neck: supple, no JVD Respiratory/Chest: lungs clear, normal breath sounds, no respiratory distress Cardiovascular: regular rate, rhythm, no murmur Abdomen: normal bowel sounds, non tender, soft Extremities: non-tender, no pedal edema Neurologic/Psychiatric: alert, + disoriented Skin: no rash Laboratory Results Last 24 Hours Test 10/10/16 09:31 10/10/16 11:05 10/10/16 11:58 10/10/16 14:44 Sodium Level 165 mmol/L 165 mmol/L Potassium Level 2.8 mmol/L 2.7 mmol/L Chloride Level 132 mmol/L 133 mmol/L Carbon Dioxide Level 23 mmol/L 23 mmol/L Anion Gap 9.0 mmol/L 9.0 mmol/L Blood Urea Nitrogen 12 mg/dl 14 mg/dl Creatinine 1.40 mg/dl 1.40 mg/dl Est Creatinine Clear Calc Drug Dose 29.2 ml/min 29.2 ml/min Estimated GFR () 41.0 41.0 Estimated GFR (Non- 35.4 35.4 BUN/Creatinine Ratio 8.9 10.1 Random Glucose 218 mg/dl 210 mg/dl Calcium Level 9.3 mg/dl 8.9 mg/dl Total Bilirubin 3.3 mg/dl Aspartate Amino Transf (AST/SGOT) 394 U/L Alanine Aminotransferase (ALT/SGPT) 520 U/L Alkaline Phosphatase 279 U/L Total Protein 6.1 gm/dl Albumin 2.5 gm/dl Globulin 3.6 gm/dl Albumin/Globulin Ratio 0.7 Bedside Glucose 178 mg/dl Urine Osmolality 615 mOms/kg Test 10/10/16 15:16 10/10/16 17:24 10/10/16 20:09 10/10/16 20:30 Sodium Level 155 mmol/L 155 mmol/L Potassium Level 3.0 mmol/L 3.5 mmol/L Chloride Level 124 mmol/L 124 mmol/L Carbon Dioxide Level 20 mmol/L 21 mmol/L Anion Gap 11.0 mmol/L 10.0 mmol/L Blood Urea Nitrogen 15 mg/dl 16 mg/dl Creatinine 1.50 mg/dl 1.50 mg/dl Est Creatinine Clear Calc Drug Dose 29.2 ml/min 29.2 ml/min Estimated GFR () 37.7 37.7 Estimated GFR (Non- 32.6 32.6 BUN/Creatinine Ratio 9.7 10.6 Random Glucose 318 mg/dl 242 mg/dl Calcium Level 8.0 mg/dl 8.0 mg/dl Beta-Hydroxybutyric Acid 0.88 mg/dL Bedside Glucose 281 mg/dl 206 mg/dl Test 10/10/16 23:36 10/10/16 23:40 10/11/16 04:00 10/11/16 05:25 Sodium Level 156 mmol/L 153 mmol/L Potassium Level 3.2 mmol/L 3.0 mmol/L Chloride Level 123 mmol/L 120 mmol/L Carbon Dioxide Level 24 mmol/L 26 mmol/L Anion Gap 8.0 mmol/L 7.0 mmol/L Blood Urea Nitrogen 16 mg/dl 18 mg/dl Creatinine 1.20 mg/dl 1.30 mg/dl Est Creatinine Clear Calc Drug Dose 36.5 ml/min 33.7 ml/min Estimated GFR () 49.4 44.9 Estimated GFR (Non- 42.7 38.7 BUN/Creatinine Ratio 13.2 13.5 Random Glucose 165 mg/dl 153 mg/dl Calcium Level 7.8 mg/dl 7.8 mg/dl Bedside Glucose 149 mg/dl 166 mg/dl White Blood Count 15.22 K/uL Red Blood Count 3.36 M/uL Hemoglobin 10.4 g/dL Hematocrit 29.4 % Mean Corpuscular Volume 87.5 fL Mean Corpuscular Hemoglobin 31.0 pg Mean Corpuscular Hemoglobin Concent 35.4 g/dl RDW Standard Deviation 54.0 fL RDW Coefficient of Variation 17.1 % Platelet Count 214 K/uL Mean Platelet Volume 9.7 fL Nucleated RBC Absolute Count (auto) 0.03 K/uL Nucleated Red Blood Cells % 0.2 % Total Bilirubin 3.2 mg/dl Direct Bilirubin 2.6 mg/dl Aspartate Amino Transf (AST/SGOT) 352 U/L Alanine Aminotransferase (ALT/SGPT) 459 U/L Alkaline Phosphatase 272 U/L Total Protein 5.4 gm/dl Albumin 2.2 gm/dl Globulin 3.2 gm/dl Albumin/Globulin Ratio 0.7 Test 10/11/16 07:56 10/11/16 08:25 Bedside Glucose 149 mg/dl Assessment and Plan 81 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 Metabolic/Septic encephalopathy in setting acute cholangitis and CBD stones treated with ERCP and multiple IV antibiotics. Continue to advance diet as tolerated Remains on Vanc, Aztreonam, and Flagyl IV - will discuss w/ID which abx to switch to due to multiple allergies Per recommendations: - No NSAIDs / Aspirin for 5 days - Broad spectrum Abx for 3 weeks - Repeat ERCP in 6 weeks to remove stent - GI will arrange this - Surgeon referral for cholecystectomy Elevated LFTs - Improving overall, we'll continue to monitor. Hypernatremia - Appreciate Dr. Duggan's recommendations. - We will continue to allow her to drink to thirst, monitoring her I's and O's. She is back on her daily dose of desmopressin. Hypokalemia - Further 60 mEq of oral potassium today. 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 Leonard during the history and exam. I discussed the case with the resident and agree with the findings and plan as documented in the note. Any exceptions or clarifications are listed here: Upon examination today, the patient is just awoken from a nap. One of her caregivers and her are both bedside. They both note that the patient is more alert and oriented today as compared to yesterday. The patient denies complaints upon my examination. Infectious disease, surgery, and nephrology consultations are reviewed and appreciated. I personally discussed the case with infectious disease and nephrology today. Documented By: Isiah Matos Resident Tracking Resident Involvement: Resident Care Provided Care Provided: Adult Hospital Medicine
[2016-10-11 09:07] LABS: BUN/CREATININE RATIO 16.3 (10-20); CREATININE 1.2 mg/dl (0.60-1.20)
[2016-10-11 09:08] LABS: CALCIUM 7.9 mg/dl (8.5-10.1)
[2016-10-11] MEDS: AMMONIUM LACTATE 12% LOTION 225 GM BTL EXT SCH (10:42)
--- NOTE | 2016-10-11 10:47 | Nephrology Progress Note ---
Nephrology Progress Note Date of Service Oct 11, 2016. Chief Complaint Hypernatremia, DI Subjective No acute events overnight. Yoav is more awake this morning. She is tolerating oral fluids and expresses thirst. Her caregiver remains at the bedside. Urine concentrated. Review of Systems A complete review of systems was performed. Pertinent positives are noted above. All other systems are negative. Vital Signs Last 8 Hrs Date Time Temp Pulse Resp B/P (MAP) Pulse Ox O2 Delivery O2 Flow Rate FiO2 10/11/16 08:00 36.4 96 16 164/76 (105) 93 Room Air 10/11/16 07:45 94 Room Air Last Recorded Weight Weight (Kilograms): 79.400 Physical Exam General Appearance: WD/WN, no apparent distress Head: normocephalic, atraumatic Eyes: normal inspection, sclerae normal ENT: normal ENT inspection, + pertinent finding (oral mucosa dry) Neck: supple, no JVD Respiratory/Chest: lungs clear, no respiratory distress, no accessory muscle use Cardiovascular: regular rate, rhythm, no gallop, no murmur Abdomen/GI: non tender, soft Genitourinary - Female: + pertinent finding (Talbert draining concentrated urine) Extremities/Musculoskelatal: normal inspection, no pedal edema Neurologic/Psych: alert, + depressed affect Family History Bladder cancer MOTHER Breast cancer SISTER FH: kidney disease FHx: heart disease Skin cancer MOTHER Social History Drug Use: none Marital Status: Housing Status: lives with family Occupation: retired Laboratory Results Past 24 Hours 10/11/16 04:00 10/10/16 11:05 10/10/16 15:16 10/10/16 20:09 10/10/16 23:36 10/11/16 04:00 10/11/16 08:25 Test 10/10/16 11:05 10/10/16 11:58 10/10/16 14:44 10/10/16 15:16 Anion Gap 9.0 mmol/L (3-11) 11.0 mmol/L (3-11) Est Creatinine Clear Calc Drug Dose 29.2 ml/min 29.2 ml/min Estimated GFR () 41.0 37.7 Estimated GFR (Non- 35.4 32.6 BUN/Creatinine Ratio 10.1 (10-20) 9.7 (10-20) Calcium Level 8.9 mg/dl (8.5-10.1) 8.0 mg/dl (8.5-10.1) Bedside Glucose 178 mg/dl (70-90) Urine Osmolality 615 mOms/kg (500-800) Beta-Hydroxybutyric Acid 0.88 mg/dL (0.2-2.81) Test 10/10/16 17:24 10/10/16 20:09 10/10/16 20:30 10/10/16 23:36 Bedside Glucose 281 mg/dl (70-90) 206 mg/dl (70-90) Anion Gap 10.0 mmol/L (3-11) 8.0 mmol/L (3-11) Est Creatinine Clear Calc Drug Dose 29.2 ml/min 36.5 ml/min Estimated GFR () 37.7 49.4 Estimated GFR (Non- 32.6 42.7 BUN/Creatinine Ratio 10.6 (10-20) 13.2 (10-20) Calcium Level 8.0 mg/dl (8.5-10.1) 7.8 mg/dl (8.5-10.1) Test 10/10/16 23:40 10/11/16 04:00 10/11/16 05:25 10/11/16 07:56 Bedside Glucose 149 mg/dl (70-90) 166 mg/dl (70-90) 149 mg/dl (70-90) Red Blood Count 3.36 M/uL (4.2-5.4) Mean Corpuscular Volume 87.5 fL (80-100) Mean Corpuscular Hemoglobin 31.0 pg (25-34) Mean Corpuscular Hemoglobin Concent 35.4 g/dl (32-36) RDW Standard Deviation 54.0 fL (36.4-46.3) RDW Coefficient of Variation 17.1 % (11.5-14.5) Mean Platelet Volume 9.7 fL (7.4-10.4) Nucleated RBC Absolute Count (auto) 0.03 K/uL (0-0) Nucleated Red Blood Cells % 0.2 % Anion Gap 7.0 mmol/L (3-11) Est Creatinine Clear Calc Drug Dose 33.7 ml/min Estimated GFR () 44.9 Estimated GFR (Non- 38.7 BUN/Creatinine Ratio 13.5 (10-20) Calcium Level 7.8 mg/dl (8.5-10.1) Total Bilirubin 3.2 mg/dl (0.2-1) Direct Bilirubin 2.6 mg/dl (0-0.2) Aspartate Amino Transf (AST/SGOT) 352 U/L (15-37) Alanine Aminotransferase (ALT/SGPT) 459 U/L (12-78) Alkaline Phosphatase 272 U/L (45-117) Total Protein 5.4 gm/dl (6.4-8.2) Albumin 2.2 gm/dl (3.4-5.0) Globulin 3.2 gm/dl (2.5-4.0) Albumin/Globulin Ratio 0.7 (0.9-2) Test 10/11/16 08:25 Anion Gap 9.0 mmol/L (3-11) Est Creatinine Clear Calc Drug Dose 36.5 ml/min Estimated GFR () 49.4 Estimated GFR (Non- 42.7 BUN/Creatinine Ratio 16.3 (10-20) Calcium Level 7.9 mg/dl (8.5-10.1) Allergies Coded Allergies: Amoxicillin (Verified Allergy, Intermediate, Swelling of Lips, 09/04/16) Ciprofloxacin (Verified Allergy, Intermediate, RASH, NAUSEA, 09/04/16) Sulfa Antibiotics (Verified Allergy, Intermediate, RASH, 09/04/16) Biotin (Verified Allergy, Unknown, UNKN, 09/04/16) Cefepime (Verified Adverse Reaction, Severe, HALLUCINATIONS, 09/04/16) Diphenhydramine (Verified Adverse Reaction, Severe, HYPER INSOMNIA, ) Imipenem (Verified Adverse Reaction, Severe, HALLUCINATIONS, 09/04/16) Mirtazapine (Verified Adverse Reaction, Intermediate, altered mental status changes, 09/04/16) Nitrofurantoin (Verified Adverse Reaction, Intermediate, CHEST PAIN, CONFUSION, 09/04/16) Oxycodone (Verified Adverse Reaction, Mild, N/V, 09/04/16) Medications Current Inpatient Medications Medications (Trade) Dose Ordered Sig/Natalee Route Start Time Stop Time Status Last Admin Dose Admin Metronidazole 500 mg/Prmx 100 ml @ 100 mls/hr Q8H IV 10/09/16 08:00 10/19/16 07:59 10/11/16 09:08 100 MLS/HR Aztreonam 1000 mg/ Dextrose 110 ml @ 100 mls/hr Q8H IV 10/09/16 10:00 10/19/16 09:59 10/11/16 04:10 100 MLS/HR Calcitriol (Rocaltrol Cap) 0.25 mcg DAILY PO 10/09/16 09:00 11/08/16 08:59 10/11/16 08:58 0.25 MCG Latanoprost (Xalatan Oph Soln) 1 drops HS OPB 10/09/16 21:00 11/08/16 20:59 10/10/16 20:44 1 DROPS Artificial Tears (Artificial Tears) 1 drops Q4H PRN OP 10/09/16 01:15 11/08/16 01:14 Desmopressin Acetate (Desmopressin Acetate) 0.1 mg DAILY PO 10/09/16 09:00 11/08/16 08:59 10/11/16 08:58 0.1 MG Hydrocortisone Sodium Succinate 50 mg/Syringe 1 ml @ 4 mls/min Q8H IV 10/09/16 03:00 11/08/16 02:59 10/11/16 02:10 4 MLS/MIN Levothyroxine Sodium 62.5 mcg/ Syringe 3.125 ml @ 1.563 mls/ min DAILY@09 IV 10/09/16 09:00 11/08/16 08:59 10/11/16 08:58 1.563 MLS/MIN Aztreonam (Consult) 1 ea UD PRN N/A 10/09/16 05:15 11/08/16 05:14 Vancomycin HCl (Consult) 1 ea UD PRN N/A 10/09/16 10:15 11/08/16 10:14 Vancomycin HCl 1200 mg/Sodium Chloride 274 ml @ 125 mls/hr Q24H IV 10/11/16 11:00 10/20/16 10:59 Pantoprazole Sodium (Protonix Tab) 40 mg QAM PO 10/11/16 09:00 11/10/16 08:59 10/11/16 08:58 40 MG Heparin Sodium (Porcine) (Heparin 10 Unit/ ml 5 ml Flush) 5 ml PRN PRN FLUSH 10/10/16 19:00 11/09/16 18:59 10/11/16 08:58 5 ML Insulin Aspart (novoLOG ASPART) SLIDING SCALE G... 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 Thirst mechanism is intact. She is maintained on a daily dose of DDAVP and has maintained a normal baseline serum sodium. She developed acute hypernatremia during admission. Urine output and osmolality within 24 hours consistent with appropriate kidney response to DDAVP. Serum sodium correcting. IV water has been discontinued. Oral fluids are to be encouraged today. Free water deficit remains at least 3 liters. At this time, fluid intake should not significant exceed urine output. She will continue desmopressin 1 mcg daily PO QAM. Serum sodium should be monitored frequently (noon and 5 PM ordered). Recommendations --- Drink to thirst (encourage at least 2-3 liters over the next 8 hours) -- Desmopressin 1 mcg daily PO -- Document I/O's, call for increased UOP -- Monitor metabolic profile at noon and 5 PM -- Serial neurologic exam -- Replete potassium with oral KCl (60 mEq BID started this AM)
[2016-10-11] MEDS ORDERED: VANCOMYCIN INJ 1,200 MG in SODIUM CHLORIDE 0.9% 250ML 250 ML IV SCH (11:00)
--- NOTE | 2016-10-11 12:17 | Infectious Disease Progress Nt ---
Progress Note Date of Service Oct 11, 2016. Subjective Pt evaluation today including: conversation w/ patient, conversation w/ family , physical exam, chart review, lab review, review of studies, conversation w/ data governance consultant (pharmacy, Dr. Leonard), review of inpatient medication list Patient is lethargic this morning. She states that she is fatigued. Her family member in the room states that she has been more attentive today though. Patient 's WBC count this morning was 15.22. Her K+ continues to be low and her Na+ continues to be high. Creatinine was 1.20, and her CrCl was 36.5. GI recommends continuation of Abx therapy x 2 weeks. I discussed possible abx options with pharmacy. Patient is now s/p ERCP of the common bile duct with findings of cholangitis. Blood culturs continues to show no growth. Additional Comments: Patient is lethargic so ROS is limited. Medications Current Inpatient Medications Medications (Trade) Dose Ordered Sig/Natalee Route Start Time Stop Time Status Last Admin Dose Admin Metronidazole 500 mg/Prmx 100 ml @ 100 mls/hr Q8H IV 10/09/16 08:00 10/19/16 07:59 10/11/16 09:08 100 MLS/HR Aztreonam 1000 mg/ Dextrose 110 ml @ 100 mls/hr Q8H IV 10/09/16 10:00 10/19/16 09:59 10/11/16 04:10 100 MLS/HR Calcitriol (Rocaltrol Cap) 0.25 mcg DAILY PO 10/09/16 09:00 11/08/16 08:59 10/11/16 08:58 0.25 MCG Latanoprost (Xalatan Oph Soln) 1 drops HS OPB 10/09/16 21:00 11/08/16 20:59 10/10/16 20:44 1 DROPS Artificial Tears (Artificial Tears) 1 drops Q4H PRN OP 10/09/16 01:15 11/08/16 01:14 Desmopressin Acetate (Desmopressin Acetate) 0.1 mg DAILY PO 10/09/16 09:00 11/08/16 08:59 10/11/16 08:58 0.1 MG Hydrocortisone Sodium Succinate 50 mg/Syringe 1 ml @ 4 mls/min Q8H IV 10/09/16 03:00 11/08/16 02:59 10/11/16 10:57 4 MLS/MIN Levothyroxine Sodium 62.5 mcg/ Syringe 3.125 ml @ 1.563 mls/ min DAILY@09 IV 10/09/16 09:00 11/08/16 08:59 10/11/16 08:58 1.563 MLS/MIN Aztreonam (Consult) 1 ea UD PRN N/A 10/09/16 05:15 11/08/16 05:14 Vancomycin HCl (Consult) 1 ea UD PRN N/A 10/09/16 10:15 11/08/16 10:14 Vancomycin HCl 1200 mg/Sodium Chloride 274 ml @ 125 mls/hr Q24H IV 10/11/16 11:00 10/20/16 10:59 10/11/16 10:57 125 MLS/HR Pantoprazole Sodium (Protonix Tab) 40 mg QAM PO 10/11/16 09:00 11/10/16 08:59 10/11/16 08:58 40 MG Heparin Sodium (Porcine) (Heparin 10 Unit/ ml 5 ml Flush) 5 ml PRN PRN FLUSH 10/10/16 19:00 11/09/16 18:59 10/11/16 08:58 5 ML Insulin Aspart (novoLOG ASPART) SLIDING SCALE G... ACHS SC 10/11/16 08:00 11/10/16 07:59 Ammonium Lactate (Lac-Hydrin) 1 appl DAILY EXT 10/11/16 09:00 11/10/16 08:59 Artificial Tears (Artificial Tears) 2 drops BID@2029,2129 OP 10/11/16 20:30 11/10/16 20:29 Potassium Chloride (Klor-Con Tab) 60 meq BID PO 10/11/16 21:00 11/10/16 20:59 Objective Vital Signs Date Time Temp Pulse Resp B/P (MAP) Pulse Ox O2 Delivery O2 Flow Rate FiO2 10/11/16 08:00 36.4 96 16 164/76 (105) 93 Room Air 10/11/16 07:45 94 Room Air 10/10/16 23:48 36.7 88 16 128/78 (95) 94 Room Air 10/10/16 23:32 Room Air 10/10/16 17:00 Room Air 10/10/16 15:10 36.6 95 18 149/82 (104) 93 Room Air Physical Exam General Appearance: WD/WN, no apparent distress, + pertinent finding (sleeping on and off) Eyes: sclerae normal ENT: hearing grossly normal Neck: supple, trachea midline Respiratory/Chest: chest non-tender, no respiratory distress, no accessory muscle use, + decreased breath sounds (throughout) Cardiovascular: + tachycardia Abdomen: normal bowel sounds, non tender, soft Neurologic/Psychiatric: + pertinent finding (lethargic) Skin: normal color, warm/dry, no rash Laboratory Results Item Value Date Time Blood Culture - Preliminary Resulted 10/08/162 Blood NO GROWTH TO DATE. Last 24 Hours Test 10/10/16 14:44 10/10/16 15:16 10/10/16 17:24 10/10/16 20:09 Urine Osmolality 615 mOms/kg Sodium Level 155 mmol/L 155 mmol/L Potassium Level 3.0 mmol/L 3.5 mmol/L Chloride Level 124 mmol/L 124 mmol/L Carbon Dioxide Level 20 mmol/L 21 mmol/L Anion Gap 11.0 mmol/L 10.0 mmol/L Blood Urea Nitrogen 15 mg/dl 16 mg/dl Creatinine 1.50 mg/dl 1.50 mg/dl Est Creatinine Clear Calc Drug Dose 29.2 ml/min 29.2 ml/min Estimated GFR () 37.7 37.7 Estimated GFR (Non- 32.6 32.6 BUN/Creatinine Ratio 9.7 10.6 Random Glucose 318 mg/dl 242 mg/dl Calcium Level 8.0 mg/dl 8.0 mg/dl Beta-Hydroxybutyric Acid 0.88 mg/dL Bedside Glucose 281 mg/dl Test 10/10/16 20:30 10/10/16 23:36 10/10/16 23:40 10/11/16 04:00 Bedside Glucose 206 mg/dl 149 mg/dl Sodium Level 156 mmol/L 153 mmol/L Potassium Level 3.2 mmol/L 3.0 mmol/L Chloride Level 123 mmol/L 120 mmol/L Carbon Dioxide Level 24 mmol/L 26 mmol/L Anion Gap 8.0 mmol/L 7.0 mmol/L Blood Urea Nitrogen 16 mg/dl 18 mg/dl Creatinine 1.20 mg/dl 1.30 mg/dl Est Creatinine Clear Calc Drug Dose 36.5 ml/min 33.7 ml/min Estimated GFR () 49.4 44.9 Estimated GFR (Non- 42.7 38.7 BUN/Creatinine Ratio 13.2 13.5 Random Glucose 165 mg/dl 153 mg/dl Calcium Level 7.8 mg/dl 7.8 mg/dl White Blood Count 15.22 K/uL Red Blood Count 3.36 M/uL Hemoglobin 10.4 g/dL Hematocrit 29.4 % Mean Corpuscular Volume 87.5 fL Mean Corpuscular Hemoglobin 31.0 pg Mean Corpuscular Hemoglobin Concent 35.4 g/dl RDW Standard Deviation 54.0 fL RDW Coefficient of Variation 17.1 % Platelet Count 214 K/uL Mean Platelet Volume 9.7 fL Nucleated RBC Absolute Count (auto) 0.03 K/uL Nucleated Red Blood Cells % 0.2 % Total Bilirubin 3.2 mg/dl Direct Bilirubin 2.6 mg/dl Aspartate Amino Transf (AST/SGOT) 352 U/L Alanine Aminotransferase (ALT/SGPT) 459 U/L Alkaline Phosphatase 272 U/L Total Protein 5.4 gm/dl Albumin 2.2 gm/dl Globulin 3.2 gm/dl Albumin/Globulin Ratio 0.7 Test 10/11/16 05:25 10/11/16 07:56 10/11/16 08:25 10/11/16 12:00 Bedside Glucose 166 mg/dl 149 mg/dl Sodium Level 152 mmol/L Potassium Level 3.0 mmol/L Chloride Level 120 mmol/L Carbon Dioxide Level 23 mmol/L Anion Gap 9.0 mmol/L Blood Urea Nitrogen 20 mg/dl Creatinine 1.20 mg/dl Est Creatinine Clear Calc Drug Dose 36.5 ml/min Estimated GFR () 49.4 Estimated GFR (Non- 42.7 BUN/Creatinine Ratio 16.3 Random Glucose 160 mg/dl Calcium Level 7.9 mg/dl Assessment and Plan Patient with acute cholangitis who appears to be slowly improving. She is currently on IV Daptomycin, Flagyl, and Aztreonam. She underwent stenting of the common bile duct via ERCP. She likely will need at least 1-2 weeks of continue abx therapy, but she has multiple allergies limiting her options. The patient previously had an adverse reaction of hallucinations when taking Imipenem, Cefepime, and Macrobid at the same time in August and therefore all three were added to the patient's list of allergies. Therefore, at this time will D/C Daptomycin, Flagyl, and Aztreonam and trial Ertapenem. This would be a much easier option for continued treatment. Recommend close monitoring of symptoms and continued neurologic evaluation. We will follow. Case reviewed and agree with above assessment.
[2016-10-11] MEDS: ERTAPENEM IV 1 GM in SODIUM CHLOR 0.9% AD-VAN 50ML 50 ML IV SCH (12:47)
[2016-10-11 12:57] LABS: BUN/CREATININE RATIO 18.7 (10-20); CALCIUM 7.4 mg/dl (8.5-10.1); CREATININE 1.1 mg/dl (0.60-1.20); POTASSIUM 3.7 mmol/L (3.5-5.1)
[2016-10-11 15:21] VITALS: BP 149/81; PULSE 79; TEMP 36.9; O2SAT 93
[2016-10-11 17:26] LABS: BUN/CREATININE RATIO 20.8 (10-20); CREATININE 1.1 mg/dl (0.60-1.20)
[2016-10-11 17:36] LABS: CALCIUM 7.4 mg/dl (8.5-10.1)
[2016-10-11] MEDS: ARTIFICIAL TEARS OP SOLN OP SCH ×4 (19:49→21:26)
[2016-10-11] MEDS ORDERED: POTASSIUM CHLORIDE 20 MEQ TABCR PO SCH (21:00)
[2016-10-11] MEDS: LATANOPROST 0.005% OP SOLN 2.5 ML BTL OPB SCH (21:26)
[2016-10-11 23:17] VITALS: BP 176/99; PULSE 70; TEMP 36.4; O2SAT 94
[2016-10-12 01:03] VITALS: BP 160/87
[2016-10-12] MEDS: HYDROCORTISONE IV 50 MG in SYRINGE 0 ML IV SCH ×3 (02:52→18:41)
[2016-10-12 06:20] LABS: CALCIUM 7.5 mg/dl (8.5-10.1); MAGNESIUM 2.3 mg/dl (1.8-2.4); PHOSPHORUS 2.3 mg/dl (2.5-4.9); POTASSIUM 3.1 mmol/L (3.5-5.1)
[2016-10-12] MEDS ORDERED: POTASSIUM PHOS 3 MMOL/1 ML INFUSION IV STA (06:51)
[2016-10-12] MEDS ORDERED: POTASSIUM PHOSPHATE INJ 15 MMOL in SODIUM CHLORIDE 0.9% 250ML 250 ML IV SCH (07:30)
[2016-10-12 07:33] VITALS: BP 153/83; PULSE 70; TEMP 36.3; O2SAT 94
[2016-10-12] MEDS: AMMONIUM LACTATE 12% LOTION 225 GM BTL EXT SCH (09:00)
[2016-10-12] MEDS: LEVOTHYROXINE SODIUM INJ 62.5 MCG in SYRINGE 0 ML IV SCH (09:13)
[2016-10-12] MEDS: CALCITRIOL 0.25 MCG CAP PO SCH (09:14)
[2016-10-12] MEDS: PANTOprazole SOD 40 MG TAB PO SCH (09:14)
[2016-10-12] MEDS: DESMOPRESSIN ACETATE 0.1 MG TAB PO SCH (09:14)
[2016-10-12 09:17] LABS: HEMATOCRIT 30.6 % (37-47); MEAN CELL VOLUME 87.9 fL (80-100); MEAN CORPUSCULAR HGB CONC 35.3 g/dl (32-36); PLATELET COUNT 191 K/uL (130-400); RED BLOOD COUNT 3.48 M/uL (4.2-5.4); WHITE BLOOD COUNT 13.44 K/uL (4.8-10.8)
[2016-10-12] MEDS: INSULIN ASPART 100 UNITS/ML 3 ML PEN SC SCH ×4 (09:20→20:37)
--- NOTE | 2016-10-12 09:20 | Surgery Progress Note ---
Surgery Progress Note Date of Service Oct 12, 2016. Subjective Post OP Day: HD # 3, s/p ERCP and stent placement Patient more alert today Answering questions and keeping eye contact No abdominal pain Eating well without difficulty No chest pain or shortness of breath Objective Vital Signs: Date Time Temp Pulse Resp B/P (MAP) Pulse Ox O2 Delivery O2 Flow Rate FiO2 10/12/16 07:33 36.3 70 16 153/83 (106) 94 Room Air 10/12/16 01:03 160/87 (111) 10/11/16 23:30 Room Air 10/11/16 23:17 36.4 70 18 176/99 (124) 94 Room Air 10/11/16 15:30 Room Air 10/11/16 15:21 36.9 79 16 149/81 (103) 93 Room Air General Appearance: no apparent distress, + obese Head: normocephalic, atraumatic Neck: trachea midline Respiratory/Chest: lungs clear, normal breath sounds, no respiratory distress, no accessory muscle use Cardiovascular: regular rate, rhythm, no murmur Abdomen: normal bowel sounds, non tender, non distended, soft Laboratory Results: Results Past 24 Hours Test 10/11/16 12:13 10/11/16 12:19 10/11/16 16:45 10/11/16 17:27 Range/Units Sodium Level 148 146 136-145 mmol/L Potassium Level 3.7 4.0 3.5-5.1 mmol/L Chloride Level 116 119 98-107 mmol/L Carbon Dioxide Level 23 19 21-32 mmol/L Anion Gap 9.0 8.0 3-11 mmol/L Blood Urea Nitrogen 21 23 7-18 mg/dl Creatinine 1.10 1.10 0.60-1.20 mg/dl Est Creatinine Clear Calc Drug Dose 39.8 39.8 ml/min Estimated GFR () 54.9 54.9 Estimated GFR (Non- 47.4 47.4 BUN/Creatinine Ratio 18.7 20.8 10-20 Random Glucose 193 227 70-99 mg/dl Calcium Level 7.4 7.4 8.5-10.1 mg/dl Bedside Glucose 197 209 70-90 mg/dl Test 10/11/16 20:44 10/12/16 05:29 10/12/16 09:03 Range/Units Bedside Glucose 245 70-90 mg/dl Sodium Level 147 136-145 mmol/L Potassium Level 3.1 3.5-5.1 mmol/L Chloride Level 113 98-107 mmol/L Carbon Dioxide Level 24 21-32 mmol/L Anion Gap 10.0 3-11 mmol/L Blood Urea Nitrogen 22 7-18 mg/dl Creatinine 1.00 0.60-1.20 mg/dl Est Creatinine Clear Calc Drug Dose 43.8 ml/min Estimated GFR () 61.6 Estimated GFR (Non- 53.2 BUN/Creatinine Ratio 22.0 10-20 Random Glucose 171 70-99 mg/dl Calcium Level 7.5 8.5-10.1 mg/dl Phosphorus Level 2.3 2.5-4.9 mg/dl Magnesium Level 2.3 1.8-2.4 mg/dl Albumin 2.3 3.4-5.0 gm/dl White Blood Count 13.44 4.8-10.8 K/uL Red Blood Count 3.48 4.2-5.4 M/uL Hemoglobin 10.8 12.0-16.0 g/dL Hematocrit 30.6 37-47 % Mean Corpuscular Volume 87.9 80-100 fL Mean Corpuscular Hemoglobin 31.0 25-34 pg Mean Corpuscular Hemoglobin Concent 35.3 32-36 g/dl RDW Standard Deviation 53.8 36.4-46.3 fL RDW Coefficient of Variation 16.9 11.5-14.5 % Platelet Count 191 130-400 K/uL Mean Platelet Volume 10.0 7.4-10.4 fL Nucleated RBC Absolute Count (auto) 0.06 0-0 K/uL Nucleated Red Blood Cells % 0.4 % Assessment & Plan Choledocholithiasis with Acute Cholangitis and concern for Calculous Cholecystitis - Afebrile - Leukocytosis improving, 13.44 today - ERCP showed choledocholithiasis and pus consistent with acute cholangitis, stent was placed and a biliary sphincterotomy performed - ECHO shows 60-65 % EF - Altered Mental status, improving, more alert today - LFTS improving, trending down - Total Bilirubin and direct improved to 1.8 and 1.0 respectively - Preliminary Blood culture is negative - Hypernatremia improving - Hypokalemia Plan: Continue IV broad spectrum antibiotics Continue current medical management Continue pain management as needed [employer] Helper on consult Correct Hypernatremia and hypokalemia Plan for cholecystectomy next week when patient stable Dr. Cullen covering this weekend
--- NOTE | 2016-10-12 09:22 | Family Medicine Progress Note ---
Progress Note Date of Service Oct 12, 2016. Subjective Pt evaluation today including: conversation w/ patient, conversation w/ family Pt said she felt alright. and caregiver denied any concerns. They report the pt is much less thirsty. Pt denied any pain. Na level now 147, which is an improvement. Pt has so far tolerated Ertapenem. Constitutional: No fever Eyes: No worsening of vision ENT: No hearing loss Respiratory: No cough, No sputum Abdomen: No pain, No nausea All Other Systems: Reviewed and Negative Medications Current Inpatient Medications Medications (Trade) Dose Ordered Sig/Natalee Route Start Time Stop Time Status Last Admin Dose Admin Calcitriol (Rocaltrol Cap) 0.25 mcg DAILY PO 10/09/16 09:00 11/08/16 08:59 10/11/16 08:58 0.25 MCG Latanoprost (Xalatan Oph Soln) 1 drops HS OPB 10/09/16 21:00 11/08/16 20:59 10/11/16 21:26 1 DROPS Artificial Tears (Artificial Tears) 1 drops Q4H PRN OP 10/09/16 01:15 11/08/16 01:14 Desmopressin Acetate (Desmopressin Acetate) 0.1 mg DAILY PO 10/09/16 09:00 11/08/16 08:59 10/11/16 08:58 0.1 MG Hydrocortisone Sodium Succinate 50 mg/Syringe 1 ml @ 4 mls/min Q8H IV 10/09/16 03:00 11/08/16 02:59 10/12/16 02:52 4 MLS/MIN Levothyroxine Sodium 62.5 mcg/ Syringe 3.125 ml @ 1.563 mls/ min DAILY@09 IV 10/09/16 09:00 11/08/16 08:59 10/11/16 08:58 1.563 MLS/MIN Pantoprazole Sodium (Protonix Tab) 40 mg QAM PO 10/11/16 09:00 11/10/16 08:59 10/11/16 08:58 40 MG Heparin Sodium (Porcine) (Heparin 10 Unit/ ml 5 ml Flush) 5 ml PRN PRN FLUSH 10/10/16 19:00 11/09/16 18:59 10/12/16 05:25 5 ML Insulin Aspart (novoLOG ASPART) SLIDING SCALE GRichard.. ACHS SC 10/11/16 08:00 11/10/16 07:59 10/11/16 21:35 3 UNITS Ammonium Lactate (Lac-Hydrin) 1 appl DAILY EXT 10/11/16 09:00 11/10/16 08:59 Artificial Tears (Artificial Tears) 2 drops BID@2029,0 OP 10/11/16 20:30 11/10/16 20:29 10/11/16 21:26 2 DROPS Ertapenem 1 gm/ Sodium Chloride 50 ml @ 120 mls/hr DAILY@1000 IV 10/11/16 12:30 10/21/16 12:29 10/11/16 12:47 120 MLS/HR Potassium Phosphate 15 mmol/ Sodium Chloride 255 ml @ 127.5 mls/ hr TODAY@0730 IV 10/12/16 07:30 10/12/16 09:29 10/12/16 07:13 127.5 MLS/HR Objective Vital Signs Date Time Temp Pulse Resp B/P (MAP) Pulse Ox O2 Delivery O2 Flow Rate FiO2 10/12/16 07:33 36.3 70 16 153/83 (106) 94 Room Air 10/12/16 01:03 160/87 (111) 10/11/16 23:30 Room Air 10/11/16 23:17 36.4 70 18 176/99 (124) 94 Room Air 10/11/16 15:30 Room Air 10/11/16 15:21 36.9 79 16 149/81 (103) 93 Room Air Assessment and Plan 81 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 Metabolic/Septic encephalopathy in setting acute cholangitis and CBD stones treated with ERCP and multiple IV antibiotics. Continue to advance diet as tolerated Day 2 Ertapenem Per recommendations: - No NSAIDs / Aspirin for 5 days - Broad spectrum Abx for 3 weeks - will now continue Ertapenem - Repeat ERCP in 6 weeks to remove stent - GI will arrange this - Surgeon referral for cholecystectomy Elevated LFTs - Improving overall, we'll continue to monitor. Hypernatremia - Appreciate Dr. Duggan's recommendations. - We will continue to allow her to drink to thirst, monitoring her I's and O's. - She is back on her daily dose of desmopressin. 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 Leonard during the history and exam. I discussed the case with the resident and agree with the findings and plan as documented in the note. Any exceptions or clarifications are listed here: We'll advance the diet, soft, low fat. The question to be discussed this week and is to the timing of the arthroscopic cholecystectomy. One line of reasoning would be to have the patient return to the hospital in 4-6 weeks; alternatively, another line of reasoning would be to proceed with the surgery this hospitalization once medical issues have been stabilized. We'll need to discuss with gastroenterology, general surgery, and nephrology. Documented By: Isiah Matos Resident Tracking Resident Involvement: Resident Care Provided Care Provided: Adult Hospital Medicine
[2016-10-12] MEDS: ERTAPENEM IV 1 GM in SODIUM CHLOR 0.9% AD-VAN 50ML 50 ML IV SCH (10:09)
--- NOTE | 2016-10-12 10:25 | Progress Note ---
Progress Note Date of Service Oct 12, 2016. Progress Note Labs reviewed. LFTs and WBC continue to improve. Ms. Valencia is interactive on exam today, is alert to person and place and is answering questions appropriately. Avoid ASA and NSAIDs x 5 days Broad spectrum ABX x 2 weeks Continue symptomatic management ERCP w/ stent removal in 6 weeks - we will contact Ms. Valencia regarding timing. Cholecystectomy per surgery. Dr. Ocasio is covering our service this weekend, please contact him with any questions. Fidelina LOWE will resume coverage on Saturday.
[2016-10-12] MEDS ORDERED: VANCOMYCIN TROUGH ONE (10:30)
[2016-10-12 13:28] LABS: BUN/CREATININE RATIO 21.3 (10-20); CALCIUM 7.7 mg/dl (8.5-10.1); CREATININE 1.1 mg/dl (0.60-1.20); POTASSIUM 2.9 mmol/L (3.5-5.1)
[2016-10-12 15:19] VITALS: BP 159/81; PULSE 67; TEMP 36.7; O2SAT 95
[2016-10-12 16:00] VITALS: O2SAT 95
[2016-10-12] MEDS ORDERED: POTASSIUM CHLORIDE 20 MEQ TABCR PO ONE ×2 (16:00→20:00)
--- NOTE | 2016-10-12 16:19 | Infectious Disease Progress Nt ---
Progress Note Date of Service Oct 12, 2016. Subjective Pt evaluation today including: conversation w/ patient, conversation w/ family (), physical exam, chart review, lab review, review of studies, conversation w/ bus info consultant, review of inpatient medication list Patient is feeling slightly improved today. Her white blood cell count morning was 13.44. Her creatinine was 1.10. Blood culture continues to show no growth to date. She was transitioned to IV ertapenem and appears to be tolerating this medication well. She complains of no pain currently. She has a Talbert catheter in place. She states that she has had no nausea or vomiting. Her states that she has been doing well and is more alert today. All Other Systems: Reviewed and Negative Medications Current Inpatient Medications Medications (Trade) Dose Ordered Sig/Natalee Route Start Time Stop Time Status Last Admin Dose Admin Calcitriol (Rocaltrol Cap) 0.25 mcg DAILY PO 10/09/16 09:00 11/08/16 08:59 10/12/16 09:14 0.25 MCG Latanoprost (Xalatan Oph Soln) 1 drops HS OPB 10/09/16 21:00 11/08/16 20:59 10/11/16 21:26 1 DROPS Artificial Tears (Artificial Tears) 1 drops Q4H PRN OP 10/09/16 01:15 11/08/16 01:14 Desmopressin Acetate (Desmopressin Acetate) 0.1 mg DAILY PO 10/09/16 09:00 11/08/16 08:59 10/12/16 09:14 0.1 MG Hydrocortisone Sodium Succinate 50 mg/Syringe 1 ml @ 4 mls/min Q8H IV 10/09/16 03:00 11/08/16 02:59 10/12/16 11:09 4 MLS/MIN Levothyroxine Sodium 62.5 mcg/ Syringe 3.125 ml @ 1.563 mls/ min DAILY@09 IV 10/09/16 09:00 11/08/16 08:59 10/12/16 09:13 1.563 MLS/MIN Pantoprazole Sodium (Protonix Tab) 40 mg QAM PO 10/11/16 09:00 11/10/16 08:59 10/12/16 09:14 40 MG Heparin Sodium (Porcine) (Heparin 10 Unit/ ml 5 ml Flush) 5 ml PRN PRN FLUSH 10/10/16 19:00 11/09/16 18:59 10/12/16 13:03 5 ML Insulin Aspart (novoLOG ASPART) SLIDING SCALE G... ACHS SC 10/11/16 08:00 11/10/16 07:59 10/12/16 12:19 1 UNITS Ammonium Lactate (Lac-Hydrin) 1 appl DAILY EXT 10/11/16 09:00 11/10/16 08:59 Artificial Tears (Artificial Tears) 2 drops BID@2029,2129 OP 10/11/16 20:30 11/10/16 20:29 10/11/16 21:26 2 DROPS Ertapenem 1 gm/ Sodium Chloride 50 ml @ 120 mls/hr DAILY@1000 IV 10/11/16 12:30 10/21/16 12:29 10/12/16 10:09 120 MLS/HR Potassium Chloride (Klor-Con Tab) 60 meq 2000 ONCE PO 10/12/16 20:00 10/12/16 20:01 Objective Vital Signs Date Time Temp Pulse Resp B/P (MAP) Pulse Ox O2 Delivery O2 Flow Rate FiO2 10/12/16 15:19 36.7 67 16 159/81 (107) 95 Room Air 10/12/16 09:00 Room Air 10/12/16 07:33 36.3 70 16 153/83 (106) 94 Room Air 10/12/16 01:03 160/87 (111) 10/11/16 23:30 Room Air 10/11/16 23:17 36.4 70 18 176/99 (124) 94 Room Air Physical Exam General Appearance: no apparent distress, + obese Eyes: normal inspection, sclerae normal ENT: hearing grossly normal Neck: supple, trachea midline Respiratory/Chest: chest non-tender, normal breath sounds, no respiratory distress, no accessory muscle use Cardiovascular: regular rate, rhythm Abdomen: normal bowel sounds, soft Neurologic/Psychiatric: alert, normal mood/affect Skin: normal color, warm/dry, no rash Laboratory Results Item Value Date Time Blood Culture - Preliminary Resulted 10/08/162221 Blood NO GROWTH TO DATE. Last 24 Hours Test 10/11/16 16:45 10/11/16 17:27 10/11/16 20:44 10/12/16 05:29 Sodium Level 146 mmol/L 147 mmol/L Potassium Level 4.0 mmol/L 3.1 mmol/L Chloride Level 119 mmol/L 113 mmol/L Carbon Dioxide Level 19 mmol/L 24 mmol/L Anion Gap 8.0 mmol/L 10.0 mmol/L Blood Urea Nitrogen 23 mg/dl 22 mg/dl Creatinine 1.10 mg/dl 1.00 mg/dl Est Creatinine Clear Calc Drug Dose 39.8 ml/min 43.8 ml/min Estimated GFR () 54.9 61.6 Estimated GFR (Non- 47.4 53.2 BUN/Creatinine Ratio 20.8 22.0 Random Glucose 227 mg/dl 171 mg/dl Calcium Level 7.4 mg/dl 7.5 mg/dl Bedside Glucose 209 mg/dl 245 mg/dl Phosphorus Level 2.3 mg/dl Magnesium Level 2.3 mg/dl Albumin 2.3 gm/dl Test 10/12/16 08:02 10/12/16 09:03 10/12/16 12:00 10/12/16 12:57 Bedside Glucose 178 mg/dl 176 mg/dl White Blood Count 13.44 K/uL Red Blood Count 3.48 M/uL Hemoglobin 10.8 g/dL Hematocrit 30.6 % Mean Corpuscular Volume 87.9 fL Mean Corpuscular Hemoglobin 31.0 pg Mean Corpuscular Hemoglobin Concent 35.3 g/dl RDW Standard Deviation 53.8 fL RDW Coefficient of Variation 16.9 % Platelet Count 191 K/uL Mean Platelet Volume 10.0 fL Nucleated RBC Absolute Count (auto) 0.06 K/uL Nucleated Red Blood Cells % 0.4 % Total Bilirubin 1.8 mg/dl Direct Bilirubin 1.0 mg/dl Aspartate Amino Transf (AST/SGOT) 167 U/L Alanine Aminotransferase (ALT/SGPT) 378 U/L Alkaline Phosphatase 301 U/L Total Protein 5.5 gm/dl Albumin 2.3 gm/dl Sodium Level 145 mmol/L Potassium Level 2.9 mmol/L Chloride Level 112 mmol/L Carbon Dioxide Level 23 mmol/L Anion Gap 10.0 mmol/L Blood Urea Nitrogen 23 mg/dl Creatinine 1.10 mg/dl Est Creatinine Clear Calc Drug Dose 39.8 ml/min Estimated GFR () 54.9 Estimated GFR (Non- 47.4 BUN/Creatinine Ratio 21.3 Random Glucose 185 mg/dl Calcium Level 7.7 mg/dl Assessment and Plan Patient with acute cholangitis who appears to be improving. She was transitioned to IV ertapenem 1 gram daily and appears to be tolerating this medication well. Ideally, would continue this patient on current antibiotic therapy to complete 2 weeks since ERCP. Her tentative stop date would be If she continues to tolerate this medication. We will continue to follow. Case reviewed and agree with above assessment.
--- NOTE | 2016-10-12 17:20 | Nephrology Progress Note ---
Nephrology Progress Note Date of Service Oct 12, 2016. Chief Complaint Hypernatremia, DI Subjective Patient was seen and evaluated this morning. Her was at the bedside. No acute events. Thirst decreased. Caregiver continues to encourage fluid intake. Overall clinically improving. Diet to be advanced. No fevers, chills or abdominal pain. Review of Systems A complete review of systems was performed. Pertinent positives are noted above. All other systems are negative. Vital Signs Last 8 Hrs Date Time Temp Pulse Resp B/P (MAP) Pulse Ox O2 Delivery O2 Flow Rate FiO2 10/12/16 15:19 36.7 67 16 159/81 (107) 95 Room Air I & O 24-Hour Column 10/13/16 08:00 Intake Total 650 ml Output Total 500 ml Balance 150 ml Last Recorded Weight Weight (Kilograms): 79.400 Physical Exam General Appearance: WD/WN, no apparent distress Head: normocephalic, atraumatic Eyes: normal inspection, sclerae normal ENT: normal ENT inspection, + pertinent finding (oral mucosa dry) Neck: supple, no JVD Respiratory/Chest: lungs clear, no respiratory distress, no accessory muscle use Cardiovascular: regular rate, rhythm, no gallop, no murmur Abdomen/GI: non tender, soft Extremities/Musculoskelatal: normal inspection, no pedal edema Neurologic/Psych: alert, oriented x 3 Family History Bladder cancer MOTHER Breast cancer SISTER FH: kidney disease FHx: heart disease Skin cancer MOTHER Social History Drug Use: none Marital Status: Housing Status: lives with family Occupation: retired Laboratory Results Past 24 Hours 10/12/16 09:03 10/12/16 05:29 10/12/16 12:57 Test 10/11/16 17:27 10/11/16 20:44 10/12/16 05:29 10/12/16 08:02 Bedside Glucose 209 mg/dl (70-90) 245 mg/dl (70-90) 178 mg/dl (70-90) Anion Gap 10.0 mmol/L (3-11) Est Creatinine Clear Calc Drug Dose 43.8 ml/min Estimated GFR () 61.6 Estimated GFR (Non- 53.2 BUN/Creatinine Ratio 22.0 (10-20) Calcium Level 7.5 mg/dl (8.5-10.1) Phosphorus Level 2.3 mg/dl (2.5-4.9) Magnesium Level 2.3 mg/dl (1.8-2.4) Albumin 2.3 gm/dl (3.4-5.0) Test 10/12/16 09:03 10/12/16 12:00 10/12/16 12:57 10/12/16 16:56 Red Blood Count 3.48 M/uL (4.2-5.4) Mean Corpuscular Volume 87.9 fL (80-100) Mean Corpuscular Hemoglobin 31.0 pg (25-34) Mean Corpuscular Hemoglobin Concent 35.3 g/dl (32-36) RDW Standard Deviation 53.8 fL (36.4-46.3) RDW Coefficient of Variation 16.9 % (11.5-14.5) Mean Platelet Volume 10.0 fL (7.4-10.4) Nucleated RBC Absolute Count (auto) 0.06 K/uL (0-0) Nucleated Red Blood Cells % 0.4 % Total Bilirubin 1.8 mg/dl (0.2-1) Direct Bilirubin 1.0 mg/dl (0-0.2) Aspartate Amino Transf (AST/SGOT) 167 U/L (15-37) Alanine Aminotransferase (ALT/SGPT) 378 U/L (12-78) Alkaline Phosphatase 301 U/L (45-117) Total Protein 5.5 gm/dl (6.4-8.2) Albumin 2.3 gm/dl (3.4-5.0) Bedside Glucose 176 mg/dl (70-90) 172 mg/dl (70-90) Anion Gap 10.0 mmol/L (3-11) Est Creatinine Clear Calc Drug Dose 39.8 ml/min Estimated GFR () 54.9 Estimated GFR (Non- 47.4 BUN/Creatinine Ratio 21.3 (10-20) Calcium Level 7.7 mg/dl (8.5-10.1) Allergies Coded Allergies: Amoxicillin (Verified Allergy, Intermediate, Swelling of Lips, 09/04/16) Ciprofloxacin (Verified Allergy, Intermediate, RASH, NAUSEA, 09/04/16) Sulfa Antibiotics (Verified Allergy, Intermediate, RASH, 09/04/16) Biotin (Verified Allergy, Unknown, UNKN, 09/04/16) Cefepime (Verified Adverse Reaction, Severe, HALLUCINATIONS, 09/04/16) Diphenhydramine (Verified Adverse Reaction, Severe, HYPER INSOMNIA, ) Imipenem (Verified Adverse Reaction, Severe, HALLUCINATIONS, 09/04/16) Mirtazapine (Verified Adverse Reaction, Intermediate, altered mental status changes, 09/04/16) Nitrofurantoin (Verified Adverse Reaction, Intermediate, CHEST PAIN, CONFUSION, 09/04/16) Oxycodone (Verified Adverse Reaction, Mild, N/V, 09/04/16) Medications Current Inpatient Medications Medications (Trade) Dose Ordered Sig/Natalee Route Start Time Stop Time Status Last Admin Dose Admin Calcitriol (Rocaltrol Cap) 0.25 mcg DAILY PO 10/09/16 09:00 11/08/16 08:59 10/12/16 09:14 0.25 MCG Latanoprost (Xalatan Oph Soln) 1 drops HS OPB 10/09/16 21:00 11/08/16 20:59 10/11/16 21:26 1 DROPS Artificial Tears (Artificial Tears) 1 drops Q4H PRN OP 10/09/16 01:15 11/08/16 01:14 Desmopressin Acetate (Desmopressin Acetate) 0.1 mg DAILY PO 10/09/16 09:00 11/08/16 08:59 10/12/16 09:14 0.1 MG Hydrocortisone Sodium Succinate 50 mg/Syringe 1 ml @ 4 mls/min Q8H IV 10/09/16 03:00 11/08/16 02:59 10/12/16 11:09 4 MLS/MIN Levothyroxine Sodium 62.5 mcg/ Syringe 3.125 ml @ 1.563 mls/ min DAILY@09 IV 10/09/16 09:00 11/08/16 08:59 10/12/16 09:13 1.563 MLS/MIN Pantoprazole Sodium (Protonix Tab) 40 mg QAM PO 10/11/16 09:00 11/10/16 08:59 10/12/16 09:14 40 MG Heparin Sodium (Porcine) (Heparin 10 Unit/ ml 5 ml Flush) 5 ml PRN PRN FLUSH 10/10/16 19:00 11/09/16 18:59 10/12/16 13:03 5 ML Insulin Aspart (novoLOG ASPART) SLIDING SCALE G... 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 Thirst mechanism is intact. She is maintained on a daily dose of DDAVP and has maintained a normal baseline serum sodium. She developed acute hypernatremia during admission. Urine output and osmolality within 24 hours consistent with appropriate kidney response to DDAVP. Serum sodium correcting. Oral fluids are to be encouraged today. Free water deficit remains at least 1 -2 liters. She will continue desmopressin 1 mcg daily PO QAM. Metabolic profile monitored twice daily. Hypokalemia may be associated with decreased intake and increase urine volume. Additional 60 mEq ordered today. She was also started on KPhos for hypophosphatemia associated with decreased oral intake. These will additionally be monitored. Recommendations --- Drink to thirst -- Desmopressin 1 mcg daily PO -- Document I/O's, call for increased UOP -- Monitor metabolic profile twice daily with magnesium and phosphorus -- Replete potassium with oral KCl (60 mEq daily)
[2016-10-12] MEDS: ARTIFICIAL TEARS OP SOLN OP SCH ×4 (20:34→22:06)
[2016-10-12] MEDS: LATANOPROST 0.005% OP SOLN 2.5 ML BTL OPB SCH (20:40)
[2016-10-12] MEDS: HEPARIN SOD 5000 UNIT/0.5 ML CARP SQ SCH (22:05)
[2016-10-12 23:27] VITALS: BP 152/78; PULSE 60; TEMP 36.4; O2SAT 93
[2016-10-13] MEDS: HYDROCORTISONE IV 50 MG in SYRINGE 0 ML IV SCH ×2 (03:00→10:32)
[2016-10-13 05:59] LABS: HEMATOCRIT 30.2 % (37-47); MEAN CELL VOLUME 87.3 fL (80-100); MEAN CORPUSCULAR HEMOGLOBIN 30.3 pg (25-34); MEAN CORPUSCULAR HGB CONC 34.8 g/dl (32-36); MEAN PLATELET VOLUME 10.7 fL (7.4-10.4); PLATELET COUNT 203 K/uL (130-400); RED BLOOD COUNT 3.46 M/uL (4.2-5.4); WHITE BLOOD COUNT 11.15 K/uL (4.8-10.8)
[2016-10-13 06:05] LABS: INR 1.1 (0.9-1.1); PARTIAL THROMBOPLASTIN RATIO 0.9; PROTHROMBIN TIME (PATIENT) 11.6 SECONDS (9.0-12.0)
[2016-10-13 06:22] LABS: CALCIUM 7.6 mg/dl (8.5-10.1)
[2016-10-13 06:23] LABS: BASO % 0.2 %; BASO ABS # 0.02 K/uL (0-0.2); COMPLETE YES; IG% 5.7 %; LYMPH % 8.3 %; LYMPH ABS # 0.92 K/uL (1.2-3.4); MONO % 6.9 %; NEUT % 78.9 %
--- NOTE | 2016-10-13 06:27 | Surgery Progress Note ---
Surgery Progress Note Date of Service Oct 13, 2016. Subjective vitals stable, resting comfortably Objective Vital Signs: Date Time Temp Pulse Resp B/P (MAP) Pulse Ox O2 Delivery O2 Flow Rate FiO2 10/13/16 00:30 Room Air 10/12/16 23:27 36.4 60 18 152/78 (102) 93 Room Air 10/12/16 16:00 95 Room Air 10/12/16 15:19 36.7 67 16 159/81 (107) 95 Room Air 10/12/16 09:00 Room Air 10/12/16 07:33 36.3 70 16 153/83 (106) 94 Room Air General Appearance: no apparent distress Respiratory/Chest: no respiratory distress, no accessory muscle use Laboratory Results: Results Past 24 Hours Test 10/12/16 08:02 10/12/16 09:03 10/12/16 12:00 10/12/16 12:57 Range/Units Bedside Glucose 178 176 70-90 mg/dl White Blood Count 13.44 4.8-10.8 K/uL Red Blood Count 3.48 4.2-5.4 M/uL Hemoglobin 10.8 12.0-16.0 g/dL Hematocrit 30.6 37-47 % Mean Corpuscular Volume 87.9 80-100 fL Mean Corpuscular Hemoglobin 31.0 25-34 pg Mean Corpuscular Hemoglobin Concent 35.3 32-36 g/dl RDW Standard Deviation 53.8 36.4-46.3 fL RDW Coefficient of Variation 16.9 11.5-14.5 % Platelet Count 191 130-400 K/uL Mean Platelet Volume 10.0 7.4-10.4 fL Nucleated RBC Absolute Count (auto) 0.06 0-0 K/uL Nucleated Red Blood Cells % 0.4 % Total Bilirubin 1.8 0.2-1 mg/dl Direct Bilirubin 1.0 0-0.2 mg/dl Aspartate Amino Transf (AST/SGOT) 167 15-37 U/L Alanine Aminotransferase (ALT/SGPT) 378 12-78 U/L Alkaline Phosphatase 301 45-117 U/L Total Protein 5.5 6.4-8.2 gm/dl Albumin 2.3 3.4-5.0 gm/dl Sodium Level 145 136-145 mmol/L Potassium Level 2.9 3.5-5.1 mmol/L Chloride Level 112 98-107 mmol/L Carbon Dioxide Level 23 21-32 mmol/L Anion Gap 10.0 3-11 mmol/L Blood Urea Nitrogen 23 7-18 mg/dl Creatinine 1.10 0.60-1.20 mg/dl Est Creatinine Clear Calc Drug Dose 39.8 ml/min Estimated GFR () 54.9 Estimated GFR (Non- 47.4 BUN/Creatinine Ratio 21.3 10-20 Random Glucose 185 70-99 mg/dl Calcium Level 7.7 8.5-10.1 mg/dl Test 10/12/16 16:56 10/12/16 20:21 10/13/16 05:30 10/13/16 05:31 Range/Units Bedside Glucose 172 170 70-90 mg/dl White Blood Count 11.15 4.8-10.8 K/uL Red Blood Count 3.46 4.2-5.4 M/uL Hemoglobin 10.5 12.0-16.0 g/dL Hematocrit 30.2 37-47 % Mean Corpuscular Volume 87.3 80-100 fL Mean Corpuscular Hemoglobin 30.3 25-34 pg Mean Corpuscular Hemoglobin Concent 34.8 32-36 g/dl Platelet Count 203 130-400 K/uL Mean Platelet Volume 10.7 7.4-10.4 fL Neutrophils (%) (Auto) 78.9 % Lymphocytes (%) (Auto) 8.3 % Monocytes (%) (Auto) 6.9 % Eosinophils (%) (Auto) 0.0 % Basophils (%) (Auto) 0.2 % Neutrophils # (Auto) 8.81 1.4-6.5 K/uL Lymphocytes # (Auto) 0.92 1.2-3.4 K/uL Monocytes # (Auto) 0.77 0.11-0.59 K/uL Eosinophils # (Auto) 0.00 0-0.5 K/uL Basophils # (Auto) 0.02 0-0.2 K/uL RDW Standard Deviation 52.7 36.4-46.3 fL RDW Coefficient of Variation 16.7 11.5-14.5 % Immature Granulocyte % (Auto) 5.7 % Immature Granulocyte # (Auto) 0.63 0.00-0.02 K/uL Nucleated RBC Absolute Count (auto) 0.05 0-0 K/uL Nucleated Red Blood Cells % 0.5 % Red Blood Cell Morphology Unremarkable Prothrombin Time 11.6 9.0-12.0 SECONDS Prothromb Time International Ratio 1.1 0.9-1.1 Activated Partial Thromboplast Time 24.5 21.0-31.0 SECONDS Partial Thromboplastin Ratio 0.9 Calcium Level 7.6 8.5-10.1 mg/dl Assessment & Plan 10/13/16- no evidence of necrotizing cholecystitis- possible cholecystectomy next week depending on progress diet per GI/medical service
[2016-10-13 06:46] LABS: BUN/CREATININE RATIO 31.7 (10-20); CREATININE 0.78 mg/dl (0.60-1.20); MAGNESIUM 2.4 mg/dl (1.8-2.4); PHOSPHORUS 1.6 mg/dl (2.5-4.9)
[2016-10-13 07:11] VITALS: BP 146/75; PULSE 59; TEMP 36.3; O2SAT 96
[2016-10-13 07:45] VITALS: O2SAT 96
[2016-10-13] MEDS: AMMONIUM LACTATE 12% LOTION 225 GM BTL EXT SCH (09:00)
[2016-10-13] MEDS: INSULIN ASPART 100 UNITS/ML 3 ML PEN SC SCH ×4 (09:17→20:47)
[2016-10-13] MEDS: CALCITRIOL 0.25 MCG CAP PO SCH (09:19)
[2016-10-13] MEDS: PANTOprazole SOD 40 MG TAB PO SCH (09:19)
[2016-10-13] MEDS: DESMOPRESSIN ACETATE 0.1 MG TAB PO SCH (09:19)
[2016-10-13] MEDS: HEPARIN SOD 5000 UNIT/0.5 ML CARP SQ SCH ×2 (09:22→20:47)
[2016-10-13] MEDS: LEVOTHYROXINE SODIUM INJ 62.5 MCG in SYRINGE 0 ML IV SCH (09:23)
[2016-10-13] MEDS ORDERED: POTASSIUM CHLORIDE 10 MEQ TABCR PO STA (09:32)
[2016-10-13] MEDS: ERTAPENEM IV 1 GM in SODIUM CHLOR 0.9% AD-VAN 50ML 50 ML IV SCH (10:32)
--- NOTE | 2016-10-13 10:59 | Nephrology Progress Note ---
Nephrology Progress Note Date of Service Oct 13, 2016. Chief Complaint Follow-up for hyponatremia and hypokalemia. Subjective While he was seen and examined in her room this morning with her Hiro vang at bedside. She is overall feeling better, denies any shortness of breath or chest pain. She continues to feel thirsty and has been drinking liquids. Blood pressure has been stable. Serum sodium normalized to 145, potassium still low. Urine output decreased. Review of Systems A complete review of systems was performed. Pertinent positives are noted above. All other systems are negative. Vital Signs Last 8 Hrs Date Time Temp Pulse Resp B/P (MAP) Pulse Ox O2 Delivery O2 Flow Rate FiO2 10/13/16 07:11 36.3 59 17 146/75 (98) 96 Room Air Last Recorded Weight Weight (Kilograms): 79.400 Physical Exam GENERAL: Elderly female, AAA x 3, pleasant, not in any distress. NECK: Supple, no JVD. RESPIRATORY: Normal breathing efforts, no accessory muscle use, clear to auscultation bilaterally, no wheezes or rales. CARDIOVASCULAR: S1, S2 normal, rate rhythm regular. EXTREMITY: No lower extremity edema NEURO: speech fluent. PSYCHIATRY: Normal mood and judgment Family History Bladder cancer MOTHER Breast cancer SISTER FH: kidney disease FHx: heart disease Skin cancer MOTHER Social History Drug Use: none Marital Status: Housing Status: lives with family Occupation: retired Laboratory Results Past 24 Hours 10/13/16 05:30 Red Blood Count 3.46, Mean Corpuscular Volume 87.3, Mean Corpuscular Hemoglobin 30.3, Mean Corpuscular Hemoglobin Concent 34.8, Mean Platelet Volume 10.7, Neutrophils (%) (Auto) 78.9, Lymphocytes (%) (Auto) 8.3, Monocytes (%) (Auto) 6.9, Eosinophils (%) (Auto) 0.0, Basophils (%) (Auto) 0.2, Neutrophils # (Auto) 8.81, Lymphocytes # (Auto) 0.92, Monocytes # (Auto) 0.77, Eosinophils # (Auto) 0.00, Basophils # (Auto) 0.02 10/12/16 12:57 10/13/16 05:31 Test 10/12/16 12:00 10/12/16 12:57 10/12/16 16:56 10/12/16 20:21 Bedside Glucose 176 mg/dl (70-90) 172 mg/dl (70-90) 170 mg/dl (70-90) Anion Gap 10.0 mmol/L (3-11) Est Creatinine Clear Calc Drug Dose 39.8 ml/min Estimated GFR () 54.9 Estimated GFR (Non- 47.4 BUN/Creatinine Ratio 21.3 (10-20) Calcium Level 7.7 mg/dl (8.5-10.1) Test 10/13/16 05:30 10/13/16 05:31 10/13/16 08:06 White Blood Count 11.15 K/uL (4.8-10.8) Red Blood Count 3.46 M/uL (4.2-5.4) Hemoglobin 10.5 g/dL (12.0-16.0) Hematocrit 30.2 % (37-47) Mean Corpuscular Volume 87.3 fL (80-100) Mean Corpuscular Hemoglobin 30.3 pg (25-34) Mean Corpuscular Hemoglobin Concent 34.8 g/dl (32-36) Platelet Count 203 K/uL (130-400) Mean Platelet Volume 10.7 fL (7.4-10.4) Neutrophils (%) (Auto) 78.9 % Lymphocytes (%) (Auto) 8.3 % Monocytes (%) (Auto) 6.9 % Eosinophils (%) (Auto) 0.0 % Basophils (%) (Auto) 0.2 % Neutrophils # (Auto) 8.81 K/uL (1.4-6.5) Lymphocytes # (Auto) 0.92 K/uL (1.2-3.4) Monocytes # (Auto) 0.77 K/uL (0.11-0.59) Eosinophils # (Auto) 0.00 K/uL (0-0.5) Basophils # (Auto) 0.02 K/uL (0-0.2) RDW Standard Deviation 52.7 fL (36.4-46.3) RDW Coefficient of Variation 16.7 % (11.5-14.5) Immature Granulocyte % (Auto) 5.7 % Immature Granulocyte # (Auto) 0.63 K/uL (0.00-0.02) Nucleated RBC Absolute Count (auto) 0.05 K/uL (0-0) Nucleated Red Blood Cells % 0.5 % Red Blood Cell Morphology Unremarkable Prothrombin Time 11.6 SECONDS (9.0-12.0) Prothromb Time International Ratio 1.1 (0.9-1.1) Activated Partial Thromboplast Time 24.5 SECONDS (21.0-31.0) Partial Thromboplastin Ratio 0.9 Anion Gap 7.0 mmol/L (3-11) Est Creatinine Clear Calc Drug Dose 56.1 ml/min Estimated GFR () 83.2 Estimated GFR (Non- 71.8 BUN/Creatinine Ratio 31.7 (10-20) Calcium Level 7.6 mg/dl (8.5-10.1) Phosphorus Level 1.6 mg/dl (2.5-4.9) Magnesium Level 2.4 mg/dl (1.8-2.4) Total Bilirubin 1.3 mg/dl (0.2-1) Direct Bilirubin 0.7 mg/dl (0-0.2) Aspartate Amino Transf (AST/SGOT) 93 U/L (15-37) Alanine Aminotransferase (ALT/SGPT) 283 U/L (12-78) Alkaline Phosphatase 292 U/L (45-117) Total Protein 5.4 gm/dl (6.4-8.2) Albumin 2.2 gm/dl (3.4-5.0) Bedside Glucose 192 mg/dl (70-90) Allergies Coded Allergies: Amoxicillin (Verified Allergy, Intermediate, Swelling of Lips, 09/04/16) Ciprofloxacin (Verified Allergy, Intermediate, RASH, NAUSEA, 09/04/16) Sulfa Antibiotics (Verified Allergy, Intermediate, RASH, 09/04/16) Biotin (Verified Allergy, Unknown, UNKN, 09/04/16) Cefepime (Verified Adverse Reaction, Severe, HALLUCINATIONS, 09/04/16) Diphenhydramine (Verified Adverse Reaction, Severe, HYPER INSOMNIA, ) Imipenem (Verified Adverse Reaction, Severe, HALLUCINATIONS, 09/04/16) Mirtazapine (Verified Adverse Reaction, Intermediate, altered mental status changes, 09/04/16) Nitrofurantoin (Verified Adverse Reaction, Intermediate, CHEST PAIN, CONFUSION, 09/04/16) Oxycodone (Verified Adverse Reaction, Mild, N/V, 09/04/16) Medications Current Inpatient Medications Medications (Trade) Dose Ordered Sig/Natalee Route Start Time Stop Time Status Last Admin Dose Admin Calcitriol (Rocaltrol Cap) 0.25 mcg DAILY PO 10/09/16 09:00 11/08/16 08:59 10/13/16 09:19 0.25 MCG Latanoprost (Xalatan Oph Soln) 1 drops HS OPB 10/09/16 21:00 11/08/16 20:59 10/12/16 20:40 1 DROPS Artificial Tears (Artificial Tears) 1 drops Q4H PRN OP 10/09/16 01:15 11/08/16 01:14 Desmopressin Acetate (Desmopressin Acetate) 0.1 mg DAILY PO 10/09/16 09:00 11/08/16 08:59 10/13/16 09:19 0.1 MG Hydrocortisone Sodium Succinate 50 mg/Syringe 1 ml @ 4 mls/min Q8H IV 10/09/16 03:00 11/08/16 02:59 10/13/16 10:32 4 MLS/MIN Levothyroxine Sodium 62.5 mcg/ Syringe 3.125 ml @ 1.563 mls/ min DAILY@09 IV 10/09/16 09:00 11/08/16 08:59 10/13/16 09:23 1.563 MLS/MIN Pantoprazole Sodium (Protonix Tab) 40 mg QAM PO 10/11/16 09:00 11/10/16 08:59 10/13/16 09:19 40 MG Heparin Sodium (Porcine) (Heparin 10 Unit/ ml 5 ml Flush) 5 ml PRN PRN FLUSH 10/10/16 19:00 11/09/16 18:59 10/13/16 09:24 5 ML Insulin Aspart (novoLOG ASPART) SLIDING SCALE G... ACHS SC 10/11/16 08:00 11/10/16 07:59 10/13/16 09:17 1 UNITS Ammonium Lactate (Lac-Hydrin) 1 appl DAILY EXT 10/11/16 09:00 11/10/16 08:59 Artificial Tears (Artificial Tears) 2 drops BID@2030,2130 OP 10/11/16 20:30 11/10/16 20:29 10/12/16 22:06 2 DROPS Ertapenem 1 gm/ Sodium Chloride 50 ml @ 120 mls/hr DAILY@1000 IV 10/11/16 12:30 10/21/16 12:29 10/13/16 10:32 120 MLS/HR Heparin Sodium (Porcine) (Heparin Sq 5000 Unit/0.5ml) 5,000 unit Q12 SQ 10/12/16 21:00 11/11/16 20:59 10/13/16 09:22 5,000 UNIT Potassium Chloride (Klor-Con M10) 40 meq 1400 PO 10/13/16 14:00 10/13/16 14:01 Impression (1) Primary central diabetes insipidus (2) Acute hypernatremia (3) Hypokalemia (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 Thirst mechanism is intact. She is maintained on a daily dose of DDAVP and has maintained a normal baseline serum sodium. She developed acute hypernatremia during admission. Urine output and osmolality within 24 hours consistent with appropriate kidney response to DDAVP. Serum sodium correcting. Oral fluids are to be encouraged today. Free water deficit remains at least 1 -2 liters. She will continue desmopressin 1 mcg daily PO QAM. Metabolic profile monitored twice daily. Hypokalemia may be associated with decreased intake and increase urine volume. Additional 60 mEq ordered today. She was also started on KPhos for hypophosphatemia associated with decreased oral intake. These will additionally be monitored. Recommendations ---advise patient to continue to Drink to thirst --replace potassium with potassium chloride 60 milliequivalent and x1 dose now and then another 40 milliequivalent in 4 hours. -- Desmopressin 1 mcg daily PO -- Document I/O's, call for increased UOP -- Monitor metabolic profile twice daily with magnesium and phosphorus
[2016-10-13] MEDS ORDERED: POTASSIUM CHLORIDE 10 MEQ TABCR PO SCH (14:00)
[2016-10-13 14:44] VITALS: BP 134/71; PULSE 62; TEMP 36.5; O2SAT 94
[2016-10-13] MEDS ORDERED: VANCOMYCIN TROUGH SCH (15:30)
--- NOTE | 2016-10-13 17:48 | Family Medicine Progress Note ---
Progress Note Date of Service Oct 13, 2016. Subjective Pt evaluation today including: conversation w/ patient, physical exam, chart review, lab review, review of studies, conversation w/ systems development consultant Pain: denies PO Intake: good Voiding: pizarro catheter in place She is out of bed to the chair today. Her affect is bright. She is oriented and conversational, a noted contrast to earlier this week. Her has left but one of her 24-hour caregivers is at bedside. She denies complaints today. Her appetite is improving. She had some questions about the cholecystectomy today. If she would have her choice, she would prefer to have the cholecystectomy done during this hospitalization if it was reasonably to do medically (rather then returning at a later date). Her metabolic issues continued to improve; her LFTs are still elevated but trending down. Constitutional: No fever, No chills Respiratory: No cough, No sputum Neurologic: + weakness Psychiatric: No problem reported Endo: No excessive thirst, No excessive urination All Other Systems: Reviewed and Negative Objective Vital Signs Vital Signs Past 12 Hours Date Time Temp Pulse Resp B/P (MAP) Pulse Ox O2 Delivery O2 Flow Rate FiO2 10/13/16 14:44 36.5 62 16 134/71 (92) 94 Room Air 10/13/16 07:45 96 Room Air 10/13/16 07:11 36.3 59 17 146/75 (98) 96 Room Air Physical Exam General Appearance: WD/WN, no apparent distress (I will bed seated in chair) Eyes: normal inspection, PERRL ENT: normal ENT inspection, hearing grossly normal, TMs normal Neck: supple, no adenopathy, thyroid normal Respiratory/Chest: chest non-tender, lungs clear, normal breath sounds Cardiovascular: regular rate, rhythm Abdomen: normal bowel sounds, non tender, soft Extremities: non-tender, normal inspection, no pedal edema Neurologic/Psychiatric: alert, normal mood/affect, oriented x 3 Skin: normal color, warm/dry Laboratory Results 10/13/16 05:30 Last Resulted 10/13/16 05:30 Red Blood Count 3.46, Mean Corpuscular Volume 87.3, Mean Corpuscular Hemoglobin 30.3, Mean Corpuscular Hemoglobin Concent 34.8, Mean Platelet Volume 10.7, Neutrophils (%) (Auto) 78.9, Lymphocytes (%) (Auto) 8.3, Monocytes (%) (Auto) 6.9, Eosinophils (%) (Auto) 0.0, Basophils (%) (Auto) 0.2, Neutrophils # (Auto) 8.81, Lymphocytes # (Auto) 0.92, Monocytes # (Auto) 0.77, Eosinophils # (Auto) 0.00, Basophils # (Auto) 0.02 Past 24 Hours Test 10/13/16 05:30 Range/Units Prothromb Time International Ratio 1.1 0.9-1.1 Prothrombin Time 11.6 9.0-12.0 SECONDS Last 24 Hours Test 10/12/16 20:21 10/13/16 05:30 10/13/16 05:31 10/13/16 08:06 Bedside Glucose 170 mg/dl 192 mg/dl White Blood Count 11.15 K/uL Red Blood Count 3.46 M/uL Hemoglobin 10.5 g/dL Hematocrit 30.2 % Mean Corpuscular Volume 87.3 fL Mean Corpuscular Hemoglobin 30.3 pg Mean Corpuscular Hemoglobin Concent 34.8 g/dl Platelet Count 203 K/uL Mean Platelet Volume 10.7 fL Neutrophils (%) (Auto) 78.9 % Lymphocytes (%) (Auto) 8.3 % Monocytes (%) (Auto) 6.9 % Eosinophils (%) (Auto) 0.0 % Basophils (%) (Auto) 0.2 % Neutrophils # (Auto) 8.81 K/uL Lymphocytes # (Auto) 0.92 K/uL Monocytes # (Auto) 0.77 K/uL Eosinophils # (Auto) 0.00 K/uL Basophils # (Auto) 0.02 K/uL RDW Standard Deviation 52.7 fL RDW Coefficient of Variation 16.7 % Immature Granulocyte % (Auto) 5.7 % Immature Granulocyte # (Auto) 0.63 K/uL Nucleated RBC Absolute Count (auto) 0.05 K/uL Nucleated Red Blood Cells % 0.5 % Red Blood Cell Morphology Unremarkable Prothrombin Time 11.6 SECONDS Prothromb Time International Ratio 1.1 Activated Partial Thromboplast Time 24.5 SECONDS Partial Thromboplastin Ratio 0.9 Sodium Level 145 mmol/L Potassium Level 3.0 mmol/L Chloride Level 111 mmol/L Carbon Dioxide Level 27 mmol/L Anion Gap 7.0 mmol/L Blood Urea Nitrogen 25 mg/dl Creatinine 0.78 mg/dl Est Creatinine Clear Calc Drug Dose 56.1 ml/min Estimated GFR () 83.2 Estimated GFR (Non- 71.8 BUN/Creatinine Ratio 31.7 Random Glucose 188 mg/dl Calcium Level 7.6 mg/dl Phosphorus Level 1.6 mg/dl Magnesium Level 2.4 mg/dl Total Bilirubin 1.3 mg/dl Direct Bilirubin 0.7 mg/dl Aspartate Amino Transf (AST/SGOT) 93 U/L Alanine Aminotransferase (ALT/SGPT) 283 U/L Alkaline Phosphatase 292 U/L Total Protein 5.4 gm/dl Albumin 2.2 gm/dl Test 10/13/16 11:55 10/13/16 16:00 10/13/16 16:46 Bedside Glucose 203 mg/dl 186 mg/dl Assessment and Plan Metabolic/Septic encephalopathy in setting acute cholangitis and CBD stones treated with ERCP and multiple IV antibiotics. Tolerating advanced diet; will continue to advance, low fat Continue ertapenem; [place] disease is following. Potential laparoscopic cholecystectomy next week; this was discussed with the patient today and as noted above her preference would be to proceed with laparoscopic cholecystectomy this admission if it was reasonable medically (the alternative returning for surgery at a later date). This discussion decision would likely have to be made when her primary gastroenterology and surgery team return on Saturday Elevated LFTs Improving, continue to monitor Hypernatremia Normalized BMP every 12 hours Hypokalemia / Hypophosphatemia Low this morning, they have been supplement by nephrology, repeat labs for late this afternoon are pending Panyhypopituitarism Stress dose steroids Presently at hydrocortisone 50 mg IV every 8 Decrease the hydrocortisone 25 mg IV every 8 Tomorrow changed to Cortef by mouth 20 mg every 8 Continue Synthroid Type II DM Glycemic consult Code status: Full Dispo: Remain on Med/Surg VTE: SCDs
[2016-10-13 18:18] LABS: BUN/CREATININE RATIO 26.3 (10-20); CALCIUM 7.7 mg/dl (8.5-10.1); CREATININE 0.86 mg/dl (0.60-1.20); MAGNESIUM 2.4 mg/dl (1.8-2.4); POTASSIUM 3.1 mmol/L (3.5-5.1)
[2016-10-13] MEDS: HYDROCORTISONE IV 25 MG in SYRINGE 0 ML IV SCH (19:36)
[2016-10-13] MEDS: LATANOPROST 0.005% OP SOLN 2.5 ML BTL OPB SCH (20:40)
[2016-10-13] MEDS: ARTIFICIAL TEARS OP SOLN OP SCH ×4 (20:40→20:49)
[2016-10-13 22:50] VITALS: BP 147/82; PULSE 60; TEMP 36.8; O2SAT 95
[2016-10-14] MEDS: HYDROCORTISONE IV 25 MG in SYRINGE 0 ML IV SCH ×3 (04:54→18:31)
[2016-10-14 06:16] LABS: HEMATOCRIT 31.3 % (37-47); MEAN CELL VOLUME 87.4 fL (80-100); MEAN CORPUSCULAR HEMOGLOBIN 30.2 pg (25-34); MEAN CORPUSCULAR HGB CONC 34.5 g/dl (32-36); MEAN PLATELET VOLUME 11.4 fL (7.4-10.4); PLATELET COUNT 212 K/uL (130-400); RED BLOOD COUNT 3.58 M/uL (4.2-5.4); WHITE BLOOD COUNT 11.53 K/uL (4.8-10.8)
[2016-10-14 06:52] LABS: BUN/CREATININE RATIO 26.6 (10-20); CREATININE 0.82 mg/dl (0.60-1.20); MAGNESIUM 2.5 mg/dl (1.8-2.4); POTASSIUM 2.7 mmol/L (3.5-5.1)
[2016-10-14 06:53] LABS: BASOPHIL % 0.9 %; COMPLETE YES; LYMPH ABS # 1.81 K/uL (1.2-3.4); LYMPHOCYTE % 15.7 %; METAMYELOCYTE % 2.6 %; MYELOCYTE % 3.5 %; NEUTROPHILS % 73.8 %
[2016-10-14 06:55] VITALS: BP 152/72; PULSE 60; TEMP 36.5; O2SAT 98
[2016-10-14 07:05] LABS: PHOSPHORUS 1.3 mg/dl (2.5-4.9)
[2016-10-14 07:25] LABS: CALCIUM 7.8 mg/dl (8.5-10.1)
[2016-10-14] MEDS: AMMONIUM LACTATE 12% LOTION 225 GM BTL EXT SCH (09:00)
[2016-10-14] MEDS: INSULIN ASPART 100 UNITS/ML 3 ML PEN SC SCH ×4 (09:04→21:40)
[2016-10-14] MEDS: CALCITRIOL 0.25 MCG CAP PO SCH (09:05)
[2016-10-14] MEDS: PANTOprazole SOD 40 MG TAB PO SCH (09:05)
[2016-10-14] MEDS: HEPARIN SOD 5000 UNIT/0.5 ML CARP SQ SCH ×2 (09:12→21:41)
[2016-10-14] MEDS: LEVOTHYROXINE SODIUM INJ 62.5 MCG in SYRINGE 0 ML IV SCH (09:13)
[2016-10-14] MEDS ORDERED: POTASSIUM CHLORIDE 10 MEQ TABCR PO ONE (09:45)
[2016-10-14] MEDS: DESMOPRESSIN ACETATE 0.1 MG TAB PO SCH ×2 (10:00→22:06)
--- NOTE | 2016-10-14 11:19 | Surgery Progress Note ---
Surgery Progress Note Date of Service Oct 14, 2016. Subjective pt sitting in chair- no acute chgs Objective Vital Signs: Date Time Temp Pulse Resp B/P (MAP) Pulse Ox O2 Delivery O2 Flow Rate FiO2 10/14/16 06:55 36.5 60 16 152/72 (98) 98 Room Air 10/13/16 23:45 Room Air 10/13/16 22:50 36.8 60 16 147/82 (103) 95 Room Air 10/13/16 17:50 Room Air 10/13/16 14:44 36.5 62 16 134/71 (92) 94 Room Air General Appearance: no apparent distress Respiratory/Chest: no respiratory distress Laboratory Results: Results Past 24 Hours Test 10/13/16 11:55 10/13/16 16:46 10/13/16 17:37 10/13/16 20:31 Range/Units Bedside Glucose 203 186 246 70-90 mg/dl Sodium Level 142 136-145 mmol/L Potassium Level 3.1 3.5-5.1 mmol/L Chloride Level 108 98-107 mmol/L Carbon Dioxide Level 27 21-32 mmol/L Anion Gap 7.0 3-11 mmol/L Blood Urea Nitrogen 23 7-18 mg/dl Creatinine 0.86 0.60-1.20 mg/dl Est Creatinine Clear Calc Drug Dose 50.9 ml/min Estimated GFR () 73.9 Estimated GFR (Non- 63.8 BUN/Creatinine Ratio 26.3 10-20 Random Glucose 174 70-99 mg/dl Calcium Level 7.7 8.5-10.1 mg/dl Magnesium Level 2.4 1.8-2.4 mg/dl Test 10/14/16 05:33 10/14/16 08:02 Range/Units White Blood Count 11.53 4.8-10.8 K/uL Red Blood Count 3.58 4.2-5.4 M/uL Hemoglobin 10.8 12.0-16.0 g/dL Hematocrit 31.3 37-47 % Mean Corpuscular Volume 87.4 80-100 fL Mean Corpuscular Hemoglobin 30.2 25-34 pg Mean Corpuscular Hemoglobin Concent 34.5 32-36 g/dl Platelet Count 212 130-400 K/uL Mean Platelet Volume 11.4 7.4-10.4 fL RDW Standard Deviation 52.7 36.4-46.3 fL RDW Coefficient of Variation 16.6 11.5-14.5 % Nucleated RBC Absolute Count (auto) 0.05 0-0 K/uL Neutrophils % (Manual) 73.8 % Lymphocytes % (Manual) 15.7 % Monocytes % (Manual) 3.5 % Basophils % (Manual) 0.9 % Metamyelocytes % 2.6 % Myelocytes % 3.5 % Nucleated Red Blood Cells % 0.4 % Neutrophils # (Manual) 8.51 1.4-6.5 K/uL Total Absolute Neutrophils 8.51 1.4-6.5 K/uL Lymphocytes # (Manual) 1.81 1.2-3.4 K/uL Total Absolute Lymphocytes 1.81 1.2-3.4 K/uL Monocytes # (Manual) 0.40 0.11-0.59 K/uL Basophils # (Manual) 0.10 0-0.2 K/uL Metamyelocytes # 0.30 0-0 K/uL Myelocytes # 0.40 0-0 K/uL Red Blood Cell Morphology Unremarkable Sodium Level 147 136-145 mmol/L Potassium Level 2.7 3.5-5.1 mmol/L Chloride Level 111 98-107 mmol/L Carbon Dioxide Level 29 21-32 mmol/L Anion Gap 7.0 3-11 mmol/L Blood Urea Nitrogen 22 7-18 mg/dl Creatinine 0.82 0.60-1.20 mg/dl Est Creatinine Clear Calc Drug Dose 53.4 ml/min Estimated GFR () 78.3 Estimated GFR (Non- 67.6 BUN/Creatinine Ratio 26.6 10-20 Random Glucose 148 70-99 mg/dl Calcium Level 7.8 8.5-10.1 mg/dl Phosphorus Level 1.3 2.5-4.9 mg/dl Magnesium Level 2.5 1.8-2.4 mg/dl Albumin 2.2 3.4-5.0 gm/dl Bedside Glucose 179 70-90 mg/dl Assessment & Plan 10/14/16- improving from cholangitis- Dr Reynolds team to decide on timing of cholecystectomy- urgent surgery is not indicated 10/13/16- no evidence of necrotizing cholecystitis- possible cholecystectomy next week depending on progress diet per GI/medical service 10/13/16- no evidence of necrotizing cholecystitis- possible cholecystectomy next week depending on progress diet per GI/medical service
--- NOTE | 2016-10-14 11:25 | Nephrology Progress Note ---
Nephrology Progress Note Date of Service Oct 14, 2016. Chief Complaint Follow-up for hypernatremia and hypokalemia. Raffi Cason Was seen and examined in her room this morning with her Hiro needed bedside. She has been otherwise feeling well, reports being thirsty. Over night she made more than 3 liters urine and has been significantly net negative, serum sodium increased again to 147 and potassium dropped to 2.7. Blood pressure stable. Review of Systems A complete review of systems was performed. Pertinent positives are noted above. All other systems are negative. Vital Signs Last 8 Hrs Date Time Temp Pulse Resp B/P (MAP) Pulse Ox O2 Delivery O2 Flow Rate FiO2 10/14/16 06:55 36.5 60 16 152/72 (98) 98 Room Air Last Recorded Weight Weight (Kilograms): 79.400 Physical Exam GENERAL: Elderly female, AAA x 3, pleasant, not in any distress. NECK: Supple, no JVD. RESPIRATORY: Normal breathing efforts, no accessory muscle use, clear to auscultation bilaterally, no wheezes or rales. CARDIOVASCULAR: S1, S2 normal, rate rhythm regular. EXTREMITY: No lower extremity edema NEURO: speech fluent. PSYCHIATRY: Normal mood and judgment Family History Bladder cancer MOTHER Breast cancer SISTER FH: kidney disease FHx: heart disease Skin cancer MOTHER Social History Drug Use: none Marital Status: Housing Status: lives with family Occupation: retired Laboratory Results Past 24 Hours 10/14/16 05:33 Red Blood Count 3.58, Mean Corpuscular Volume 87.4, Mean Corpuscular Hemoglobin 30.2, Mean Corpuscular Hemoglobin Concent 34.5, Mean Platelet Volume 11.4 10/13/16 17:37 10/14/16 05:33 Test 10/13/16 11:55 10/13/16 16:46 10/13/16 17:37 10/13/16 20:31 Bedside Glucose 203 mg/dl (70-90) 186 mg/dl (70-90) 246 mg/dl (70-90) Anion Gap 7.0 mmol/L (3-11) Est Creatinine Clear Calc Drug Dose 50.9 ml/min Estimated GFR () 73.9 Estimated GFR (Non- 63.8 BUN/Creatinine Ratio 26.3 (10-20) Calcium Level 7.7 mg/dl (8.5-10.1) Magnesium Level 2.4 mg/dl (1.8-2.4) Test 10/14/16 05:33 White Blood Count 11.53 K/uL (4.8-10.8) Red Blood Count 3.58 M/uL (4.2-5.4) Hemoglobin 10.8 g/dL (12.0-16.0) Hematocrit 31.3 % (37-47) Mean Corpuscular Volume 87.4 fL (80-100) Mean Corpuscular Hemoglobin 30.2 pg (25-34) Mean Corpuscular Hemoglobin Concent 34.5 g/dl (32-36) Platelet Count 212 K/uL (130-400) Mean Platelet Volume 11.4 fL (7.4-10.4) RDW Standard Deviation 52.7 fL (36.4-46.3) RDW Coefficient of Variation 16.6 % (11.5-14.5) Nucleated RBC Absolute Count (auto) 0.05 K/uL (0-0) Neutrophils % (Manual) 73.8 % Lymphocytes % (Manual) 15.7 % Monocytes % (Manual) 3.5 % Basophils % (Manual) 0.9 % Metamyelocytes % 2.6 % Myelocytes % 3.5 % Nucleated Red Blood Cells % 0.4 % Neutrophils # (Manual) 8.51 K/uL (1.4-6.5) Total Absolute Neutrophils 8.51 K/uL (1.4-6.5) Lymphocytes # (Manual) 1.81 K/uL (1.2-3.4) Total Absolute Lymphocytes 1.81 K/uL (1.2-3.4) Monocytes # (Manual) 0.40 K/uL (0.11-0.59) Basophils # (Manual) 0.10 K/uL (0-0.2) Metamyelocytes # 0.30 K/uL (0-0) Myelocytes # 0.40 K/uL (0-0) Red Blood Cell Morphology Unremarkable Anion Gap 7.0 mmol/L (3-11) Est Creatinine Clear Calc Drug Dose 53.4 ml/min Estimated GFR () 78.3 Estimated GFR (Non- 67.6 BUN/Creatinine Ratio 26.6 (10-20) Calcium Level 7.8 mg/dl (8.5-10.1) Phosphorus Level 1.3 mg/dl (2.5-4.9) Magnesium Level 2.5 mg/dl (1.8-2.4) Albumin 2.2 gm/dl (3.4-5.0) Allergies Coded Allergies: Amoxicillin (Verified Allergy, Intermediate, Swelling of Lips, 09/04/16) Ciprofloxacin (Verified Allergy, Intermediate, RASH, NAUSEA, 09/04/16) Sulfa Antibiotics (Verified Allergy, Intermediate, RASH, 09/04/16) Biotin (Verified Allergy, Unknown, UNKN, 09/04/16) Cefepime (Verified Adverse Reaction, Severe, HALLUCINATIONS, 09/04/16) Diphenhydramine (Verified Adverse Reaction, Severe, HYPER INSOMNIA, ) Imipenem (Verified Adverse Reaction, Severe, HALLUCINATIONS, 09/04/16) Mirtazapine (Verified Adverse Reaction, Intermediate, altered mental status changes, 09/04/16) Nitrofurantoin (Verified Adverse Reaction, Intermediate, CHEST PAIN, CONFUSION, 09/04/16) Oxycodone (Verified Adverse Reaction, Mild, N/V, 09/04/16) Medications Current Inpatient Medications Medications (Trade) Dose Ordered Sig/Natalee Route Start Time Stop Time Status Last Admin Dose Admin Calcitriol (Rocaltrol Cap) 0.25 mcg DAILY PO 10/09/16 09:00 11/08/16 08:59 10/13/16 09:19 0.25 MCG Latanoprost (Xalatan Oph Soln) 1 drops HS OPB 10/09/16 21:00 11/08/16 20:59 10/13/16 20:40 1 DROPS Artificial Tears (Artificial Tears) 1 drops Q4H PRN OP 10/09/16 01:15 11/08/16 01:14 Levothyroxine Sodium 62.5 mcg/ Syringe 3.125 ml @ 1.563 mls/ min DAILY@09 IV 10/09/16 09:00 11/08/16 08:59 10/13/16 09:23 1.563 MLS/MIN Pantoprazole Sodium (Protonix Tab) 40 mg QAM PO 10/11/16 09:00 11/10/16 08:59 10/13/16 09:19 40 MG Heparin Sodium (Porcine) (Heparin 10 Unit/ ml 5 ml Flush) 5 ml PRN PRN FLUSH 10/10/16 19:00 11/09/16 18:59 10/14/16 05:30 5 ML Insulin Aspart (novoLOG ASPART) SLIDING SCALE G... ACHS SC 10/11/16 08:00 11/10/16 07:59 10/13/16 20:47 3 UNITS Ammonium Lactate (Lac-Hydrin) 1 appl DAILY EXT 10/11/16 09:00 11/10/16 08:59 Artificial Tears (Artificial Tears) 2 drops BID@2029,2129 OP 10/11/16 20:30 11/10/16 20:29 10/13/16 20:49 2 DROPS Ertapenem 1 gm/ Sodium Chloride 50 ml @ 120 mls/hr DAILY@1000 IV 10/11/16 12:30 10/21/16 12:29 10/13/16 10:32 120 MLS/HR Heparin Sodium (Porcine) (Heparin Sq 5000 Unit/0.5ml) 5,000 unit Q12 SQ 10/12/16 21:00 11/11/16 20:59 10/13/16 20:47 5,000 UNIT Hydrocortisone Sodium Succinate 25 mg/Syringe 0.5 ml @ 4 mls/min Q8H IV 10/13/16 19:00 11/08/16 18:59 10/14/16 04:54 4 MLS/MIN Desmopressin Acetate (Desmopressin Acetate) 0.1 mg BID PO 10/14/16 21:00 11/08/16 08:59 UNV Impression (1) Primary central diabetes insipidus (2) Acute hypernatremia (3) Hypokalemia (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 Thirst mechanism is intact. She is maintained on a daily dose of DDAVP and has maintained a normal baseline serum sodium. She developed acute hypernatremia during admission. Urine output and osmolality within 24 hours consistent with appropriate kidney response to DDAVP. Serum sodium correcting. Oral fluids are to be encouraged today. Free water deficit remains at least 1 -2 liters. She will continue desmopressin 1 mcg daily PO QAM. Metabolic profile monitored twice daily. Hypokalemia may be associated with decreased intake and increase urine volume. Additional 60 mEq ordered today. She was also started on KPhos for hypophosphatemia associated with decreased oral intake. These will additionally be monitored. Recommendations ---advise patient to continue to Drink to thirst -- start on D5 water with p.m. 40 potassium chloride 100 mL/hour. -- increase Desmopressin to 0.1 mcg twice daily -- Document I/O's, call for increased UOP -- Monitor metabolic profile twice daily with magnesium and phosphorus
[2016-10-14] MEDS: ERTAPENEM IV 1 GM in SODIUM CHLOR 0.9% AD-VAN 50ML 50 ML IV SCH (13:52)
[2016-10-14] MEDS: POTASSIUM CHLORIDE INJ 40 MEQ in DEXTROSE 5% 1000ML 1,000 ML IV SCH ×2 (13:52→21:46)
[2016-10-14] MEDS ORDERED: POTASSIUM CHLORIDE 10 MEQ TABCR PO SCH (14:00)
[2016-10-14 14:49] VITALS: BP 150/80; PULSE 65; TEMP 36.4; O2SAT 96
--- NOTE | 2016-10-14 15:35 | Family Medicine Progress Note ---
Progress Note Date of Service Oct 14, 2016. Subjective Pt evaluation today including: conversation w/ patient, physical exam, chart review, lab review, review of studies, conversation w/ business info consultant Pain: denies PO Intake: good Voiding: pizarro catheter in place She is also again out of bed into the chair. Her affect is bright. She is conversational. Overall a marked difference from when I first met her at the beginning of service. She has no complaints today. She again asked if she could get the cholecystectomy this hospitalization versus a return hospitalization later. I discussed that this is a discussion that would have to be had tomorrow when her primary gastroenterology and surgery team are working. Constitutional: No fever, No chills Eyes: No problem reported ENT: No problem reported Respiratory: No cough, No wheezing, No shortness of breath Cardiovascular: No chest pain, No edema Musculoskeletal: No problem reported Neurologic: No problem reported Psychiatric: No problem reported Medications Current Inpatient Medications Medications (Trade) Dose Ordered Sig/Natalee Route Start Time Stop Time Status Last Admin Dose Admin Calcitriol (Rocaltrol Cap) 0.25 mcg DAILY PO 10/09/16 09:00 11/08/16 08:59 10/14/16 09:05 0.25 MCG Latanoprost (Xalatan Oph Soln) 1 drops HS OPB 10/09/16 21:00 11/08/16 20:59 10/13/16 20:40 1 DROPS Artificial Tears (Artificial Tears) 1 drops Q4H PRN OP 10/09/16 01:15 11/08/16 01:14 Levothyroxine Sodium 62.5 mcg/ Syringe 3.125 ml @ 1.563 mls/ min DAILY@09 IV 10/09/16 09:00 11/08/16 08:59 10/14/16 09:13 1.563 MLS/MIN Pantoprazole Sodium (Protonix Tab) 40 mg QAM PO 10/11/16 09:00 11/10/16 08:59 10/14/16 09:05 40 MG Heparin Sodium (Porcine) (Heparin 10 Unit/ ml 5 ml Flush) 5 ml PRN PRN FLUSH 10/10/16 19:00 11/09/16 18:59 10/14/16 05:30 5 ML Insulin Aspart (novoLOG ASPART) SLIDING SCALE G... ACHS SC 10/11/16 08:00 11/10/16 07:59 10/14/16 13:56 2 UNITS Ammonium Lactate (Lac-Hydrin) 1 appl DAILY EXT 10/11/16 09:00 11/10/16 08:59 Artificial Tears (Artificial Tears) 2 drops BID@2029,2129 OP 10/11/16 20:30 11/10/16 20:29 10/13/16 20:49 2 DROPS Ertapenem 1 gm/ Sodium Chloride 50 ml @ 120 mls/hr DAILY@1000 IV 10/11/16 12:30 10/21/16 12:29 10/14/16 13:52 120 MLS/HR Heparin Sodium (Porcine) (Heparin Sq 5000 Unit/0.5ml) 5,000 unit Q12 SQ 10/12/16 21:00 11/11/16 20:59 10/14/16 09:12 5,000 UNIT Hydrocortisone Sodium Succinate 25 mg/Syringe 0.5 ml @ 4 mls/min Q8H IV 10/13/16 19:00 11/08/16 18:59 10/14/16 11:00 4 MLS/MIN Desmopressin Acetate (Desmopressin Acetate) 0.1 mg BID PO 10/14/16 10:00 11/08/16 09:59 Potassium Chloride (Klor-Con M10) 60 meq 1400 PO 10/14/16 14:00 10/14/16 18:00 10/14/16 13:57 60 MEQ Potassium Chloride 40 meq/ Dextrose 1,020 ml @ 100 mls/hr [id number] IV 10/14/16 10:00 11/13/16 09:14 10/14/16 13:52 100 MLS/HR Objective Vital Signs Vital Signs Past 12 Hours Date Time Temp Pulse Resp B/P (MAP) Pulse Ox O2 Delivery O2 Flow Rate FiO2 10/14/16 14:49 36.4 65 16 150/80 (103) 96 Room Air 10/14/16 06:55 36.5 60 16 152/72 (98) 98 Room Air Physical Exam General Appearance: WD/WN, no apparent distress Eyes: normal inspection ENT: normal ENT inspection Neck: supple, no adenopathy Respiratory/Chest: chest non-tender, lungs clear Cardiovascular: regular rate, rhythm Abdomen: normal bowel sounds, non tender, soft Extremities: non-tender, normal inspection, no pedal edema Neurologic/Psychiatric: no motor/sensory deficits, alert, normal mood/affect Skin: normal color, warm/dry Laboratory Results Last 24 Hours Test 10/13/16 16:46 10/13/16 17:37 10/13/16 20:31 10/14/16 05:33 Bedside Glucose 186 mg/dl 246 mg/dl Sodium Level 142 mmol/L 147 mmol/L Potassium Level 3.1 mmol/L 2.7 mmol/L Chloride Level 108 mmol/L 111 mmol/L Carbon Dioxide Level 27 mmol/L 29 mmol/L Anion Gap 7.0 mmol/L 7.0 mmol/L Blood Urea Nitrogen 23 mg/dl 22 mg/dl Creatinine 0.86 mg/dl 0.82 mg/dl Est Creatinine Clear Calc Drug Dose 50.9 ml/min 53.4 ml/min Estimated GFR () 73.9 78.3 Estimated GFR (Non- 63.8 67.6 BUN/Creatinine Ratio 26.3 26.6 Random Glucose 174 mg/dl 148 mg/dl Calcium Level 7.7 mg/dl 7.8 mg/dl Magnesium Level 2.4 mg/dl 2.5 mg/dl White Blood Count 11.53 K/uL Red Blood Count 3.58 M/uL Hemoglobin 10.8 g/dL Hematocrit 31.3 % Mean Corpuscular Volume 87.4 fL Mean Corpuscular Hemoglobin 30.2 pg Mean Corpuscular Hemoglobin Concent 34.5 g/dl Platelet Count 212 K/uL Mean Platelet Volume 11.4 fL RDW Standard Deviation 52.7 fL RDW Coefficient of Variation 16.6 % Nucleated RBC Absolute Count (auto) 0.05 K/uL Neutrophils % (Manual) 73.8 % Lymphocytes % (Manual) 15.7 % Monocytes % (Manual) 3.5 % Basophils % (Manual) 0.9 % Metamyelocytes % 2.6 % Myelocytes % 3.5 % Nucleated Red Blood Cells % 0.4 % Neutrophils # (Manual) 8.51 K/uL Total Absolute Neutrophils 8.51 K/uL Lymphocytes # (Manual) 1.81 K/uL Total Absolute Lymphocytes 1.81 K/uL Monocytes # (Manual) 0.40 K/uL Basophils # (Manual) 0.10 K/uL Metamyelocytes # 0.30 K/uL Myelocytes # 0.40 K/uL Red Blood Cell Morphology Unremarkable Phosphorus Level 1.3 mg/dl Albumin 2.2 gm/dl Test 10/14/16 08:02 10/14/16 12:01 Bedside Glucose 179 mg/dl 230 mg/dl Assessment and Plan Metabolic/Septic encephalopathy in setting acute cholangitis and CBD stones treated with ERCP and multiple IV antibiotics. Tolerating advanced diet; will continue to advance, low fat Continue ertapenem; infectious disease is following. Potential laparoscopic cholecystectomy next week; this was discussed with the patient today and as noted above her preference would be to proceed with laparoscopic cholecystectomy this admission if it was reasonable medically (the alternative returning for surgery at a later date). This discussion decision would likely have to be made when her primary gastroenterology and surgery team return on Saturday Elevated LFTs Improving, continue to monitor Hypernatremia Normalized BMP every 12 hours Hypokalemia / Hypophosphatemia Encourage oral hydration to thirst Started D5 W with potassium this morning per nephrology Increase desmopressin 0.1 g twice a day BMP, magnesium, and processed every 12 hours Panyhypopituitarism Stress dose steroids Presently at hydrocortisone 50 mg IV every 8 Decrease the hydrocortisone 25 mg IV every 8 Tomorrow changed to Cortef by mouth 20 mg every 8 Continue Synthroid, change to by mouth Type II DM Glycemic consult
[2016-10-14 16:37] LABS: BUN/CREATININE RATIO 20.8 (10-20); MAGNESIUM 2.4 mg/dl (1.8-2.4); POTASSIUM 3.5 mmol/L (3.5-5.1)
[2016-10-14 17:14] LABS: PHOSPHORUS 1.5 mg/dl (2.5-4.9)
[2016-10-14 19:30] VITALS: O2SAT 96
[2016-10-14] MEDS: ARTIFICIAL TEARS OP SOLN OP SCH ×4 (21:31→22:09)
[2016-10-14] MEDS: POT PHOSPHATE MONOBASIC W/ SOD TAB PO SCH (21:33)
[2016-10-14] MEDS: LATANOPROST 0.005% OP SOLN 2.5 ML BTL OPB SCH (21:34)
[2016-10-14 23:20] VITALS: BP 160/88; PULSE 62; TEMP 36.5; O2SAT 94
[2016-10-15] MEDS: HYDROCORTISONE IV 25 MG in SYRINGE 0 ML IV SCH ×2 (03:13→11:18)
[2016-10-15 05:45] LABS: HEMATOCRIT 31.2 % (37-47); MEAN CELL VOLUME 88.4 fL (80-100); MEAN CORPUSCULAR HEMOGLOBIN 31.7 pg (25-34); MEAN CORPUSCULAR HGB CONC 35.9 g/dl (32-36); MEAN PLATELET VOLUME 11.4 fL (7.4-10.4); PLATELET COUNT 203 K/uL (130-400); RED BLOOD COUNT 3.53 M/uL (4.2-5.4); WHITE BLOOD COUNT 14.29 K/uL (4.8-10.8)
[2016-10-15] MEDS ORDERED: LEVOTHYROXINE 125 MCG TAB PO SCH (06:00)
[2016-10-15] MEDS: POTASSIUM CHLORIDE INJ 40 MEQ in DEXTROSE 5% 1000ML 1,000 ML IV SCH (06:03)
[2016-10-15 06:11] LABS: BASO ABS # 0.13 K/uL (0-0.2); BASOPHIL % 0.9 %; COMPLETE YES; EOSINOPHIL % 0.9 %; LYMPH ABS # 1.37 K/uL (1.2-3.4); LYMPHOCYTE % 9.6 %; META ABS # 0.13 K/uL (0-0); METAMYELOCYTE % 0.9 %; MYELOCYTE % 2.6 %
[2016-10-15 06:15] LABS: BUN/CREATININE RATIO 21.5 (10-20); CALCIUM 7.7 mg/dl (8.5-10.1); CREATININE 0.84 mg/dl (0.60-1.20); MAGNESIUM 2.1 mg/dl (1.8-2.4); PHOSPHORUS 1.6 mg/dl (2.5-4.9); POTASSIUM 3.4 mmol/L (3.5-5.1)
[2016-10-15 06:47] VITALS: BP 163/72; PULSE 61; TEMP 36.3; O2SAT 95
[2016-10-15] MEDS ORDERED: POTASSIUM CHLORIDE 10 MEQ TABCR PO STA (08:18)
[2016-10-15] MEDS: POT PHOSPHATE MONOBASIC W/ SOD TAB PO SCH ×4 (08:49→20:41)
[2016-10-15] MEDS: PANTOprazole SOD 40 MG TAB PO SCH (08:52)
[2016-10-15] MEDS: AMMONIUM LACTATE 12% LOTION 225 GM BTL EXT SCH (08:53)
[2016-10-15] MEDS: CALCITRIOL 0.25 MCG CAP PO SCH (08:54)
[2016-10-15] MEDS: HEPARIN SOD 5000 UNIT/0.5 ML CARP SQ SCH ×2 (08:57→20:45)
[2016-10-15] MEDS: INSULIN ASPART 100 UNITS/ML 3 ML PEN SC SCH ×4 (09:06→20:50)
[2016-10-15] MEDS ORDERED: POTASSIUM CHLORIDE 10 MEQ TABCR PO ONE (09:15)
[2016-10-15] MEDS: DESMOPRESSIN ACETATE 0.1 MG TAB PO SCH ×2 (09:25→20:45)
[2016-10-15] MEDS: ERTAPENEM IV 1 GM in SODIUM CHLOR 0.9% AD-VAN 50ML 50 ML IV SCH (10:13)
--- NOTE | 2016-10-15 11:11 | Nephrology Progress Note ---
Nephrology Progress Note Date of Service Oct 15, 2016. Chief Complaint Follow-up for hypernatremia and hypokalemia. Raffi Cason Was seen and examined in her room this morning with her Hiro needed bedside. She has been otherwise feeling well, reports being thirsty. Over night she made 1.5 liters urine, serum sodium normal 142 and potassium improved to 3.4. Blood pressure high Review of Systems A complete review of systems was performed. Pertinent positives are noted above. All other systems are negative. Vital Signs Last 8 Hrs Date Time Temp Pulse Resp B/P (MAP) Pulse Ox O2 Delivery O2 Flow Rate FiO2 10/15/16 06:47 36.3 61 16 163/72 (102) 95 Room Air 10/15/16 00:30 Room Air Last Recorded Weight Weight (Kilograms): 79.400 Physical Exam GENERAL: Elderly female, AAA x 3, pleasant, not in any distress. NECK: Supple, no JVD. RESPIRATORY: Normal breathing efforts, no accessory muscle use, clear to auscultation bilaterally, no wheezes or rales. CARDIOVASCULAR: S1, S2 normal, rate rhythm regular. EXTREMITY: No lower extremity edema NEURO: speech fluent. PSYCHIATRY: Normal mood and judgment Family History Bladder cancer MOTHER Breast cancer SISTER FH: kidney disease FHx: heart disease Skin cancer MOTHER Social History Drug Use: none Marital Status: Housing Status: lives with family Occupation: retired Laboratory Results Past 24 Hours 10/15/16 05:30 Red Blood Count 3.53, Mean Corpuscular Volume 88.4, Mean Corpuscular Hemoglobin 31.7, Mean Corpuscular Hemoglobin Concent 35.9, Mean Platelet Volume 11.4 10/14/16 16:00 10/15/16 05:30 Test 10/14/16 12:01 10/14/16 16:00 10/14/16 17:00 10/14/16 20:43 Bedside Glucose 230 mg/dl (70-90) 238 mg/dl (70-90) 235 mg/dl (70-90) Anion Gap 8.0 mmol/L (3-11) Est Creatinine Clear Calc Drug Dose 43.8 ml/min Estimated GFR () 61.6 Estimated GFR (Non- 53.2 BUN/Creatinine Ratio 20.8 (10-20) Calcium Level 8.0 mg/dl (8.5-10.1) Phosphorus Level 1.5 mg/dl (2.5-4.9) Magnesium Level 2.4 mg/dl (1.8-2.4) Albumin 2.3 gm/dl (3.4-5.0) Test 10/15/16 05:30 White Blood Count 14.29 K/uL (4.8-10.8) Red Blood Count 3.53 M/uL (4.2-5.4) Hemoglobin 11.2 g/dL (12.0-16.0) Hematocrit 31.2 % (37-47) Mean Corpuscular Volume 88.4 fL (80-100) Mean Corpuscular Hemoglobin 31.7 pg (25-34) Mean Corpuscular Hemoglobin Concent 35.9 g/dl (32-36) Platelet Count 203 K/uL (130-400) Mean Platelet Volume 11.4 fL (7.4-10.4) RDW Standard Deviation 52.5 fL (36.4-46.3) RDW Coefficient of Variation 16.7 % (11.5-14.5) Nucleated RBC Absolute Count (auto) 0.03 K/uL (0-0) Neutrophils % (Manual) 79.0 % Lymphocytes % (Manual) 9.6 % Monocytes % (Manual) 6.1 % Eosinophils % (Manual) 0.9 % Basophils % (Manual) 0.9 % Metamyelocytes % 0.9 % Myelocytes % 2.6 % Nucleated Red Blood Cells % 0.2 % Neutrophils # (Manual) 11.29 K/uL (1.4-6.5) Total Absolute Neutrophils 11.29 K/uL (1.4-6.5) Lymphocytes # (Manual) 1.37 K/uL (1.2-3.4) Total Absolute Lymphocytes 1.37 K/uL (1.2-3.4) Monocytes # (Manual) 0.87 K/uL (0.11-0.59) Eosinophils # (Manual) 0.13 K/uL (0-0.5) Basophils # (Manual) 0.13 K/uL (0-0.2) Metamyelocytes # 0.13 K/uL (0-0) Myelocytes # 0.37 K/uL (0-0) Red Blood Cell Morphology Unremarkable Anion Gap 8.0 mmol/L (3-11) Est Creatinine Clear Calc Drug Dose 52.1 ml/min Estimated GFR () 76.1 Estimated GFR (Non- 65.6 BUN/Creatinine Ratio 21.5 (10-20) Calcium Level 7.7 mg/dl (8.5-10.1) Phosphorus Level 1.6 mg/dl (2.5-4.9) Magnesium Level 2.1 mg/dl (1.8-2.4) Total Bilirubin 1.0 mg/dl (0.2-1) Direct Bilirubin 0.5 mg/dl (0-0.2) Aspartate Amino Transf (AST/SGOT) 90 U/L (15-37) Alanine Aminotransferase (ALT/SGPT) 234 U/L (12-78) Alkaline Phosphatase 267 U/L (45-117) Total Protein 5.4 gm/dl (6.4-8.2) Albumin 2.4 gm/dl (3.4-5.0) Allergies Coded Allergies: Amoxicillin (Verified Allergy, Intermediate, Swelling of Lips, 09/04/16) Ciprofloxacin (Verified Allergy, Intermediate, RASH, NAUSEA, 09/04/16) Sulfa Antibiotics (Verified Allergy, Intermediate, RASH, 09/04/16) Biotin (Verified Allergy, Unknown, UNKN, 09/04/16) Cefepime (Verified Adverse Reaction, Severe, HALLUCINATIONS, 09/04/16) Diphenhydramine (Verified Adverse Reaction, Severe, HYPER INSOMNIA, ) Imipenem (Verified Adverse Reaction, Severe, HALLUCINATIONS, 09/04/16) Mirtazapine (Verified Adverse Reaction, Intermediate, altered mental status changes, 09/04/16) Nitrofurantoin (Verified Adverse Reaction, Intermediate, CHEST PAIN, CONFUSION, 09/04/16) Oxycodone (Verified Adverse Reaction, Mild, N/V, 09/04/16) Medications Current Inpatient Medications Medications (Trade) Dose Ordered Sig/Natalee Route Start Time Stop Time Status Last Admin Dose Admin Calcitriol (Rocaltrol Cap) 0.25 mcg DAILY PO 10/09/16 09:00 11/08/16 08:59 10/14/16 09:05 0.25 MCG Latanoprost (Xalatan Oph Soln) 1 drops HS OPB 10/09/16 21:00 11/08/16 20:59 10/14/16 21:34 1 DROPS Artificial Tears (Artificial Tears) 1 drops Q4H PRN OP 10/09/16 01:15 11/08/16 01:14 Pantoprazole Sodium (Protonix Tab) 40 mg QAM PO 10/11/16 09:00 11/10/16 08:59 10/14/16 09:05 40 MG Heparin Sodium (Porcine) (Heparin 10 Unit/ ml 5 ml Flush) 5 ml PRN PRN FLUSH 10/10/16 19:00 11/09/16 18:59 10/14/16 05:30 5 ML Insulin Aspart (novoLOG ASPART) SLIDING SCALE G... ACHS SC 10/11/16 08:00 11/10/16 07:59 10/14/16 21:40 2 UNITS Ammonium Lactate (Lac-Hydrin) 1 appl DAILY EXT 10/11/16 09:00 11/10/16 08:59 Artificial Tears (Artificial Tears) 2 drops BID@2030,2130 OP 10/11/16 20:30 11/10/16 20:29 10/14/16 22:09 2 DROPS Ertapenem 1 gm/ Sodium Chloride 50 ml @ 120 mls/hr DAILY@1000 IV 10/11/16 12:30 10/21/16 12:29 10/14/16 13:52 120 MLS/HR Heparin Sodium (Porcine) (Heparin Sq 5000 Unit/0.5ml) 5,000 unit Q12 SQ 10/12/16 21:00 11/11/16 20:59 10/14/16 21:41 5,000 UNIT Hydrocortisone Sodium Succinate 25 mg/Syringe 0.5 ml @ 4 mls/min Q8H IV 10/13/16 19:00 11/08/16 18:59 10/15/16 03:13 4 MLS/MIN Desmopressin Acetate (Desmopressin Acetate) 0.1 mg BID PO 10/14/16 10:00 11/08/16 09:59 10/14/16 22:06 0.1 MG Potassium Chloride 40 meq/ Dextrose 1,020 ml @ 100 mls/hr [id number] IV 10/14/16 10:00 11/13/16 09:14 10/15/16 06:03 100 MLS/HR Levothyroxine Sodium (Synthroid Tab) 125 mcg DAILYBB PO 10/15/16 06:00 11/14/16 05:59 10/15/16 05:49 125 MCG Potassium/ Phosphorus/Sodium (Phospha 250 Neutral 155-852-130 Mg) 1 tab QID PO 10/14/16 21:00 11/13/16 20:59 10/14/16 21:33 1 TAB Impression (1) Primary central diabetes insipidus (2) Acute hypernatremia (3) Hypokalemia (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 Thirst mechanism is intact. She is maintained on a daily dose of DDAVP and has maintained a normal baseline serum sodium. She developed acute hypernatremia during admission. Urine output and osmolality within 24 hours consistent with appropriate kidney response to DDAVP. Serum sodium correcting. Oral fluids are to be encouraged today. Free water deficit remains at least 1 -2 liters. She will continue desmopressin 1 mcg daily PO QAM. Metabolic profile monitored twice daily. Hypokalemia may be associated with decreased intake and increase urine volume. Additional 60 mEq ordered today. She was also started on KPhos for hypophosphatemia associated with decreased oral intake. These will additionally be monitored. Recommendations ---potassium chloride 40 milliequivalent p.o. x1 dose -- continue Desmopressin to 0.1 mcg twice daily -- encourage p.o. intake -- Document I/O's -- will sign off -- please schedule for follow-up with endocrinology in 1-2 weeks as endocrinology has been managing her desmopressin dose as an outpatient considering her history of panhypopituitarism and diabetes insipidus. --Please call with any question or concern. thank you.
--- NOTE | 2016-10-15 11:31 | Progress Note ---
Subjective Date of Service: Oct 15, 2016. Subjective Pt evaluation today including: conversation w/ family, chart review, lab review , review of studies, review of inpatient medication list sleeping. family notes that she's been up for about 2 days and finally fell asleep. note that she's doing much better overall - no fevers. abdominal pain gone, eating well. main next step is ?cholecystectomy acutely vs allowing time to heal and then as outpt in near to mid-range future - awaiting further input from surgery in this respect. extensively discussed with family pt well known to me from prior admissions. will try to revisit this afternoon when awake, but for now allowing to rest Problem List Medical Problems: (1) Acute kidney injury Status: Acute (2) VERO (acute kidney injury) Status: Acute (3) Altered mental status Status: Acute (4) Altered mental status Status: Acute (5) Altered mental status Status: Acute (6) Altered mental status Status: Acute (7) Altered mental status Status: Acute (8) Ascending cholangitis Status: Acute (9) Atrial fibrillation Status: Acute (10) Dehydration Status: Acute (11) Dysarthria Status: Acute (12) Hearing voices Status: Acute (13) Hydronephrosis Status: Acute (14) Hydronephrosis Status: Acute (15) Kidney stone Status: Acute (16) Leukocytosis Status: Acute (17) Medication reaction Status: Acute (18) Nausea & vomiting Status: Acute (19) Pleural effusion Status: Acute (20) Right ureteral calculus Status: Acute (21) Sepsis Status: Acute (22) Sepsis Status: Acute (23) Urinary tract infection Status: Acute Objective Vital Signs Date Time Temp Pulse Resp B/P (MAP) Pulse Ox O2 Delivery O2 Flow Rate FiO2 10/15/16 07:40 Room Air 10/15/16 06:47 36.3 61 16 163/72 (102) 95 Room Air 10/15/16 00:30 Room Air 10/14/16 23:20 36.5 62 16 160/88 (112) 94 Room Air 10/14/16 19:30 96 Room Air 10/14/16 14:49 36.4 65 16 150/80 (103) 96 Room Air Physical Exam General Appearance: no apparent distress Respiratory/Chest: no respiratory distress, no accessory muscle use Neurologic/Psychiatric: shredded filler machine wrapper layer [id number] nml as tested (no focal deficits at rest) Skin: normal color Laboratory Results Last 24 Hours Test 10/14/16 12:01 10/14/16 16:00 10/14/16 17:00 10/14/16 20:43 Bedside Glucose 230 mg/dl 238 mg/dl 235 mg/dl Sodium Level 143 mmol/L Potassium Level 3.5 mmol/L Chloride Level 107 mmol/L Carbon Dioxide Level 28 mmol/L Anion Gap 8.0 mmol/L Blood Urea Nitrogen 21 mg/dl Creatinine 1.00 mg/dl Est Creatinine Clear Calc Drug Dose 43.8 ml/min Estimated GFR () 61.6 Estimated GFR (Non- 53.2 BUN/Creatinine Ratio 20.8 Random Glucose 288 mg/dl Calcium Level 8.0 mg/dl Phosphorus Level 1.5 mg/dl Magnesium Level 2.4 mg/dl Albumin 2.3 gm/dl Test 10/15/16 05:30 10/15/16 08:12 White Blood Count 14.29 K/uL Red Blood Count 3.53 M/uL Hemoglobin 11.2 g/dL Hematocrit 31.2 % Mean Corpuscular Volume 88.4 fL Mean Corpuscular Hemoglobin 31.7 pg Mean Corpuscular Hemoglobin Concent 35.9 g/dl Platelet Count 203 K/uL Mean Platelet Volume 11.4 fL RDW Standard Deviation 52.5 fL RDW Coefficient of Variation 16.7 % Nucleated RBC Absolute Count (auto) 0.03 K/uL Neutrophils % (Manual) 79.0 % Lymphocytes % (Manual) 9.6 % Monocytes % (Manual) 6.1 % Eosinophils % (Manual) 0.9 % Basophils % (Manual) 0.9 % Metamyelocytes % 0.9 % Myelocytes % 2.6 % Nucleated Red Blood Cells % 0.2 % Neutrophils # (Manual) 11.29 K/uL Total Absolute Neutrophils 11.29 K/uL Lymphocytes # (Manual) 1.37 K/uL Total Absolute Lymphocytes 1.37 K/uL Monocytes # (Manual) 0.87 K/uL Eosinophils # (Manual) 0.13 K/uL Basophils # (Manual) 0.13 K/uL Metamyelocytes # 0.13 K/uL Myelocytes # 0.37 K/uL Red Blood Cell Morphology Unremarkable Sodium Level 142 mmol/L Potassium Level 3.4 mmol/L Chloride Level 106 mmol/L Carbon Dioxide Level 28 mmol/L Anion Gap 8.0 mmol/L Blood Urea Nitrogen 18 mg/dl Creatinine 0.84 mg/dl Est Creatinine Clear Calc Drug Dose 52.1 ml/min Estimated GFR () 76.1 Estimated GFR (Non- 65.6 BUN/Creatinine Ratio 21.5 Random Glucose 172 mg/dl Calcium Level 7.7 mg/dl Phosphorus Level 1.6 mg/dl Magnesium Level 2.1 mg/dl Total Bilirubin 1.0 mg/dl Direct Bilirubin 0.5 mg/dl Aspartate Amino Transf (AST/SGOT) 90 U/L Alanine Aminotransferase (ALT/SGPT) 234 U/L Alkaline Phosphatase 267 U/L Total Protein 5.4 gm/dl Albumin 2.4 gm/dl Bedside Glucose 173 mg/dl Assessment and Plan Metabolic/Septic encephalopathy in setting acute cholangitis and CBD stones treated with ERCP and multiple IV antibiotics. tolerating low fat diet well Continue ertapenem; infectious disease is following. depending on +/- choley - maybe can change to po abx in next 24hrs (vs keeping on IV if going for surgery) await further input from surgery and GI on timing of choley - but definitely appears doing better mild leukocytosis clinically overall situation has improved, d/w family - WBC increased slightly but remainder of clinical picture seems better - continue to follow overall situation as well as WBC Elevated LFTs ongoing improvement, continue to monitor Hypernatremia Normalized reduce BMP to daily for now, especially since PO intake should have her situation be much less brittle Hypokalemia / Hypophosphatemia Encourage oral hydration to thirst Increased desmopressin 0.1 g twice a day daily labs outpt endocrine f/u Panyhypopituitarism Stress dose steroids --> reduce to PO cortef as at home. if choley done, follow for ?need for repeated stress dosing Continue Synthroid Type II DM Glycemic consult DVT proph heparin SQ
--- NOTE | 2016-10-15 13:38 | Surgery Progress Note ---
Surgery Progress Note Date of Service Oct 15, 2016. Subjective + feeling well pt is stable, no abdominal pain, no nausea or vomiting, Objective Vital Signs: Date Time Temp Pulse Resp B/P (MAP) Pulse Ox O2 Delivery O2 Flow Rate FiO2 10/15/16 07:40 Room Air 10/15/16 06:47 36.3 61 16 163/72 (102) 95 Room Air 10/15/16 00:30 Room Air 10/14/16 23:20 36.5 62 16 160/88 (112) 94 Room Air 10/14/16 19:30 96 Room Air 10/14/16 14:49 36.4 65 16 150/80 (103) 96 Room Air General Appearance: WD/WN Head: normocephalic Neck: supple, no JVD Respiratory/Chest: chest non-tender, lungs clear Cardiovascular: regular rate, rhythm, no edema Abdomen: normal bowel sounds, non tender, non distended, soft Extremities: normal range of motion, non-tender, normal inspection Laboratory Results: Results Past 24 Hours Test 10/14/16 16:00 10/14/16 17:00 10/14/16 20:43 10/15/16 05:30 Range/Units Sodium Level 143 142 136-145 mmol/L Potassium Level 3.5 3.4 3.5-5.1 mmol/L Chloride Level 107 106 98-107 mmol/L Carbon Dioxide Level 28 28 21-32 mmol/L Anion Gap 8.0 8.0 3-11 mmol/L Blood Urea Nitrogen 21 18 7-18 mg/dl Creatinine 1.00 0.84 0.60-1.20 mg/dl Est Creatinine Clear Calc Drug Dose 43.8 52.1 ml/min Estimated GFR () 61.6 76.1 Estimated GFR (Non- 53.2 65.6 BUN/Creatinine Ratio 20.8 21.5 10-20 Random Glucose 288 172 70-99 mg/dl Calcium Level 8.0 7.7 8.5-10.1 mg/dl Phosphorus Level 1.5 1.6 2.5-4.9 mg/dl Magnesium Level 2.4 2.1 1.8-2.4 mg/dl Albumin 2.3 2.4 3.4-5.0 gm/dl Bedside Glucose 238 235 70-90 mg/dl White Blood Count 14.29 4.8-10.8 K/uL Red Blood Count 3.53 4.2-5.4 M/uL Hemoglobin 11.2 12.0-16.0 g/dL Hematocrit 31.2 37-47 % Mean Corpuscular Volume 88.4 80-100 fL Mean Corpuscular Hemoglobin 31.7 25-34 pg Mean Corpuscular Hemoglobin Concent 35.9 32-36 g/dl Platelet Count 203 130-400 K/uL Mean Platelet Volume 11.4 7.4-10.4 fL RDW Standard Deviation 52.5 36.4-46.3 fL RDW Coefficient of Variation 16.7 11.5-14.5 % Nucleated RBC Absolute Count (auto) 0.03 0-0 K/uL Neutrophils % (Manual) 79.0 % Lymphocytes % (Manual) 9.6 % Monocytes % (Manual) 6.1 % Eosinophils % (Manual) 0.9 % Basophils % (Manual) 0.9 % Metamyelocytes % 0.9 % Myelocytes % 2.6 % Nucleated Red Blood Cells % 0.2 % Neutrophils # (Manual) 11.29 1.4-6.5 K/uL Total Absolute Neutrophils 11.29 1.4-6.5 K/uL Lymphocytes # (Manual) 1.37 1.2-3.4 K/uL Total Absolute Lymphocytes 1.37 1.2-3.4 K/uL Monocytes # (Manual) 0.87 0.11-0.59 K/uL Eosinophils # (Manual) 0.13 0-0.5 K/uL Basophils # (Manual) 0.13 0-0.2 K/uL Metamyelocytes # 0.13 0-0 K/uL Myelocytes # 0.37 0-0 K/uL Red Blood Cell Morphology Unremarkable Total Bilirubin 1.0 0.2-1 mg/dl Direct Bilirubin 0.5 0-0.2 mg/dl Aspartate Amino Transf (AST/SGOT) 90 15-37 U/L Alanine Aminotransferase (ALT/SGPT) 234 12-78 U/L Alkaline Phosphatase 267 45-117 U/L Total Protein 5.4 6.4-8.2 gm/dl Test 10/15/16 08:12 Range/Units Bedside Glucose 173 70-90 mg/dl Assessment & Plan F/U cholelithiasis pt is stable, I will F/U pt in my office next week, for schedule to do shelton carson , D/W pt's who agrees with the plan, U/A to R/O UTI base on WBC up I sign off today, please call me if need me, thanks,
[2016-10-15 14:13] LABS: URINE APPEARANCE CLEAR (CLEAR); URINE BILIRUBIN NEG (NEG); URINE COLOR YELLOW; URINE EPITHELIAL CELL AUTO >30 /lpf (0-5); URINE NITRITE NEG (NEG); URINE PH 7.5 (4.5-7.5); URINE SPECIFIC GRAVITY 1.016 (1.000-1.030); UROBILINOGEN NEG (NEG)
[2016-10-15 14:16] LABS: MANUAL MICROSCOPIC REQUIRED? NO; REVIEW REQ? YES
--- NOTE | 2016-10-15 14:50 | Infectious Disease Progress Nt ---
Progress Note Date of Service Oct 15, 2016. Subjective Pt evaluation today including: conversation w/ patient, conversation w/ family , physical exam, chart review, lab review, review of studies, review of inpatient medication list Patient is not feeling well today. She does not describe any specific pain but states that her "heart hurts" because she cannot do what she wants. Her states that over the weekend, she had become slightly more confused and agitated. Dr. Carter ordered a UA which is currently pending. No new imaging. Anticipating D/C to home or rehab over the next few days and follow up appointment to schedule cholecystectomy as outpatient. All Other Systems: Reviewed and Negative Medications Current Inpatient Medications Medications (Trade) Dose Ordered Sig/Natalee Route Start Time Stop Time Status Last Admin Dose Admin Calcitriol (Rocaltrol Cap) 0.25 mcg DAILY PO 10/09/16 09:00 11/08/16 08:59 10/15/16 08:54 0.25 MCG Latanoprost (Xalatan Oph Soln) 1 drops HS OPB 10/09/16 21:00 11/08/16 20:59 10/14/16 21:34 1 DROPS Artificial Tears (Artificial Tears) 1 drops Q4H PRN OP 10/09/16 01:15 11/08/16 01:14 Pantoprazole Sodium (Protonix Tab) 40 mg QAM PO 10/11/16 09:00 11/10/16 08:59 10/15/16 08:52 40 MG Heparin Sodium (Porcine) (Heparin 10 Unit/ ml 5 ml Flush) 5 ml PRN PRN FLUSH 10/10/16 19:00 11/09/16 18:59 10/15/16 11:19 5 ML Insulin Aspart (novoLOG ASPART) SLIDING SCALE G... ACHS SC 10/11/16 08:00 11/10/16 07:59 10/15/16 13:17 1 UNITS Ammonium Lactate (Lac-Hydrin) 1 appl DAILY EXT 10/11/16 09:00 11/10/16 08:59 Artificial Tears (Artificial Tears) 2 drops BID@2029,2129 OP 10/11/16 20:30 11/10/16 20:29 10/14/16 22:09 2 DROPS Ertapenem 1 gm/ Sodium Chloride 50 ml @ 120 mls/hr DAILY@1000 IV 10/11/16 12:30 10/21/16 12:29 10/15/16 10:13 120 MLS/HR Heparin Sodium (Porcine) (Heparin Sq 5000 Unit/0.5ml) 5,000 unit Q12 SQ 10/12/16 21:00 11/11/16 20:59 10/15/16 08:57 5,000 UNIT Desmopressin Acetate (Desmopressin Acetate) 0.1 mg BID PO 10/14/16 10:00 11/08/16 09:59 10/15/16 09:25 0.1 MG Potassium/ Phosphorus/Sodium (Phospha 250 Neutral 155-852-130 Mg) 1 tab QID PO 10/14/16 21:00 11/13/16 20:59 10/15/16 13:11 1 TAB Cholecalciferol (Vitamin D Tab) 1,000 inter.unit DAILY PO 10/16/16 09:00 11/15/16 08:59 Hydrocortisone (Cortef Tab) 5 mg DAILY@1700 PO 10/15/16 17:00 11/14/16 16:59 Hydrocortisone (Cortef Tab) 15 mg QAM PO 10/16/16 09:00 11/15/16 08:59 Levothyroxine Sodium (Synthroid Tab) 125 mcg DAILYBB PO 10/16/16 06:00 11/15/16 05:59 Calcium/Vitamin D (Caltrate Plus Tab) 1 tab DAILY PO 10/16/16 09:00 11/15/16 08:59 Lactobacillus Acidophilus (Floranex Tab) 4 tab DAILY PO 10/16/16 09:00 11/15/16 08:59 Objective Vital Signs Date Time Temp Pulse Resp B/P (MAP) Pulse Ox O2 Delivery O2 Flow Rate FiO2 10/15/16 07:40 Room Air 10/15/16 06:47 36.3 61 16 163/72 (102) 95 Room Air 10/15/16 00:30 Room Air 10/14/16 23:20 36.5 62 16 160/88 (112) 94 Room Air 10/14/16 19:30 96 Room Air 10/14/16 14:49 36.4 65 16 150/80 (103) 96 Room Air Physical Exam General Appearance: WD/WN, no apparent distress Eyes: normal inspection, sclerae normal ENT: hearing grossly normal Neck: supple, trachea midline Respiratory/Chest: chest non-tender, lungs clear, no respiratory distress, no accessory muscle use Cardiovascular: regular rate, rhythm Abdomen: normal bowel sounds Neurologic/Psychiatric: + pertinent finding (lethargic) Skin: normal color, warm/dry, no rash Laboratory Results Last 24 Hours Test 10/14/16 16:00 10/14/16 17:00 10/14/16 20:43 10/15/16 05:30 Sodium Level 143 mmol/L 142 mmol/L Potassium Level 3.5 mmol/L 3.4 mmol/L Chloride Level 107 mmol/L 106 mmol/L Carbon Dioxide Level 28 mmol/L 28 mmol/L Anion Gap 8.0 mmol/L 8.0 mmol/L Blood Urea Nitrogen 21 mg/dl 18 mg/dl Creatinine 1.00 mg/dl 0.84 mg/dl Est Creatinine Clear Calc Drug Dose 43.8 ml/min 52.1 ml/min Estimated GFR () 61.6 76.1 Estimated GFR (Non- 53.2 65.6 BUN/Creatinine Ratio 20.8 21.5 Random Glucose 288 mg/dl 172 mg/dl Calcium Level 8.0 mg/dl 7.7 mg/dl Phosphorus Level 1.5 mg/dl 1.6 mg/dl Magnesium Level 2.4 mg/dl 2.1 mg/dl Albumin 2.3 gm/dl 2.4 gm/dl Bedside Glucose 238 mg/dl 235 mg/dl White Blood Count 14.29 K/uL Red Blood Count 3.53 M/uL Hemoglobin 11.2 g/dL Hematocrit 31.2 % Mean Corpuscular Volume 88.4 fL Mean Corpuscular Hemoglobin 31.7 pg Mean Corpuscular Hemoglobin Concent 35.9 g/dl Platelet Count 203 K/uL Mean Platelet Volume 11.4 fL RDW Standard Deviation 52.5 fL RDW Coefficient of Variation 16.7 % Nucleated RBC Absolute Count (auto) 0.03 K/uL Neutrophils % (Manual) 79.0 % Lymphocytes % (Manual) 9.6 % Monocytes % (Manual) 6.1 % Eosinophils % (Manual) 0.9 % Basophils % (Manual) 0.9 % Metamyelocytes % 0.9 % Myelocytes % 2.6 % Nucleated Red Blood Cells % 0.2 % Neutrophils # (Manual) 11.29 K/uL Total Absolute Neutrophils 11.29 K/uL Lymphocytes # (Manual) 1.37 K/uL Total Absolute Lymphocytes 1.37 K/uL Monocytes # (Manual) 0.87 K/uL Eosinophils # (Manual) 0.13 K/uL Basophils # (Manual) 0.13 K/uL Metamyelocytes # 0.13 K/uL Myelocytes # 0.37 K/uL Red Blood Cell Morphology Unremarkable Total Bilirubin 1.0 mg/dl Direct Bilirubin 0.5 mg/dl Aspartate Amino Transf (AST/SGOT) 90 U/L Alanine Aminotransferase (ALT/SGPT) 234 U/L Alkaline Phosphatase 267 U/L Total Protein 5.4 gm/dl Test 10/15/16 08:12 10/15/16 13:50 Bedside Glucose 173 mg/dl Urine Color YELLOW Urine Appearance CLEAR Urine pH 7.5 Urine Specific [place] 1.016 Urine Protein NEG Urine Glucose (UA) NEG Urine Ketones NEG Urine Occult Blood NEG Urine Nitrite NEG Urine Bilirubin NEG Urine Urobilinogen NEG Urine Leukocyte Esterase LARGE Urine WBC (Auto) >30 /hpf Urine RBC (Auto) 0-4 /hpf Urine Hyaline Casts (Auto) 1-5 /lpf Urine Epithelial Cells (Auto) >30 /lpf Urine Bacteria (Auto) NEG Urine Renal Epithelial Cells 10-20 /lpf Assessment and Plan Patient with acute cholangitis who has been having some mild confusion in the setting of recurrent UTI's. UA was ordered by Dr. Carter- will add urine culture. She is currently on IV Ertapenem. If her urinalysis is clean, may need to consider change of medication with altered mental status on and off. If UA is dirty, recommend waiting for culture and considering addition of further abx therapy. May need to discuss with Dr. Carter to see if he would prefer she continue IV therapy up until cholecystectomy. We will follow. Case reviewed and agree with above assessment
[2016-10-15 15:14] VITALS: BP 144/85; PULSE 64; TEMP 36.5; O2SAT 98
[2016-10-15] MEDS: HYDROCORTISONE 10 MG TAB PO SCH (17:04)
[2016-10-15] MEDS: LATANOPROST 0.005% OP SOLN 2.5 ML BTL OPB SCH (20:41)
[2016-10-15] MEDS: ARTIFICIAL TEARS OP SOLN OP SCH ×4 (20:41→21:15)
[2016-10-15 23:54] VITALS: BP 154/82; PULSE 61; TEMP 36.2; O2SAT 94
[2016-10-16] MEDS: LEVOTHYROXINE 125 MCG TAB PO SCH (05:44)
[2016-10-16 06:06] LABS: MEAN CELL VOLUME 88.5 fL (80-100); MEAN CORPUSCULAR HEMOGLOBIN 29.5 pg (25-34); MEAN CORPUSCULAR HGB CONC 33.3 g/dl (32-36); MEAN PLATELET VOLUME 11.2 fL (7.4-10.4); PLATELET COUNT 193 K/uL (130-400); RED BLOOD COUNT 3.73 M/uL (4.2-5.4); WHITE BLOOD COUNT 13.72 K/uL (4.8-10.8)
[2016-10-16 06:44] LABS: BUN/CREATININE RATIO 21.4 (10-20); CREATININE 0.76 mg/dl (0.60-1.20); POTASSIUM 3.4 mmol/L (3.5-5.1)
[2016-10-16 06:54] LABS: PHOSPHORUS 2.8 mg/dl (2.5-4.9)
[2016-10-16 07:05] LABS: ANISOCYTOSIS PRESENT; COMPLETE YES; EOSINOPHIL % 0.9 %; LYMPH ABS # 2.77 K/uL (1.2-3.4); LYMPHOCYTE % 20.2 %; META ABS # 0.25 K/uL (0-0); METAMYELOCYTE % 1.8 %; MYELOCYTE % 1.8 %; NEUTROPHILS % 72.7 %; POLYCHROMASIA 1+
[2016-10-16 07:22] VITALS: BP 130/81; PULSE 65; TEMP 36.3; O2SAT 97
[2016-10-16] MEDS ORDERED: POTASSIUM CHLORIDE 10 MEQ TABCR PO STA (08:27)
[2016-10-16] MEDS: INSULIN ASPART 100 UNITS/ML 3 ML PEN SC SCH ×4 (08:38→20:48)
[2016-10-16] MEDS: LACTOBACILLUS ACIDOPHILUS (FLORANEX) TAB PO SCH (08:38)
[2016-10-16] MEDS: HYDROCORTISONE 10 MG TAB PO SCH ×2 (08:39→17:26)
[2016-10-16] MEDS: CALCIUM 600MG + VIT D 400 IU TAB PO SCH (08:40)
[2016-10-16] MEDS: DESMOPRESSIN ACETATE 0.1 MG TAB PO SCH ×2 (08:40→20:49)
[2016-10-16] MEDS: CALCITRIOL 0.25 MCG CAP PO SCH (08:40)
[2016-10-16] MEDS: PANTOprazole SOD 40 MG TAB PO SCH (08:40)
[2016-10-16] MEDS: CHOLECALCIFEROL 1000 INTER.UNIT TAB PO SCH (08:40)
[2016-10-16] MEDS: POT PHOSPHATE MONOBASIC W/ SOD TAB PO SCH ×4 (08:41→20:49)
[2016-10-16] MEDS: HEPARIN SOD 5000 UNIT/0.5 ML CARP SQ SCH ×2 (08:43→20:54)
[2016-10-16] MEDS: AMMONIUM LACTATE 12% LOTION 225 GM BTL EXT SCH (09:00)
[2016-10-16] MEDS: ERTAPENEM IV 1 GM in SODIUM CHLOR 0.9% AD-VAN 50ML 50 ML IV SCH (09:14)
[2016-10-16] MEDS: IMIPENEM/CILASTATIN IV 500 MG in DEXTROSE 5% 100ML 100 ML IV SCH ×3 (10:31→22:24)
--- NOTE | 2016-10-16 13:08 | Infectious Disease Progress Nt ---
Progress Note Date of Service Oct 16, 2016. Subjective Pt evaluation today including: conversation w/ patient, physical exam, chart review, lab review, review of studies, review of inpatient medication list Patient is feeling slightly improved today. She continues to be weak. Her urine culture is growing probable Pseudomonas species. She continues IV ertapenem otherwise. Her white blood cell count today was 13.72. Her creatinine was 0.76. She has been afebrile. She has had no further imaging studies completed. All Other Systems: Reviewed and Negative Medications Current Inpatient Medications Medications (Trade) Dose Ordered Sig/Natalee Route Start Time Stop Time Status Last Admin Dose Admin Calcitriol (Rocaltrol Cap) 0.25 mcg DAILY PO 10/09/16 09:00 11/08/16 08:59 10/16/16 08:40 0.25 MCG Latanoprost (Xalatan Oph Soln) 1 drops HS OPB 10/09/16 21:00 11/08/16 20:59 10/15/16 20:41 1 DROPS Artificial Tears (Artificial Tears) 1 drops Q4H PRN OP 10/09/16 01:15 11/08/16 01:14 Pantoprazole Sodium (Protonix Tab) 40 mg QAM PO 10/11/16 09:00 11/10/16 08:59 10/16/16 08:40 40 MG Heparin Sodium (Porcine) (Heparin 10 Unit/ ml 5 ml Flush) 5 ml PRN PRN FLUSH 10/10/16 19:00 11/09/16 18:59 10/16/16 10:29 5 ML Insulin Aspart (novoLOG ASPART) SLIDING SCALE G... ACHS SC 10/11/16 08:00 11/10/16 07:59 10/15/16 13:17 1 UNITS Ammonium Lactate (Lac-Hydrin) 1 appl DAILY EXT 10/11/16 09:00 11/10/16 08:59 Artificial Tears (Artificial Tears) 2 drops BID@ OP 10/11/16 20:30 11/10/16 20:29 10/15/16 21:15 2 DROPS Heparin Sodium (Porcine) (Heparin Sq 5000 Unit/0.5ml) 5,000 unit Q12 SQ 10/12/16 21:00 11/11/16 20:59 10/16/16 08:43 5,000 UNIT Desmopressin Acetate (Desmopressin Acetate) 0.1 mg BID PO 10/14/16 10:00 11/08/16 09:59 10/16/16 08:40 0.1 MG Potassium/ Phosphorus/Sodium (Phospha 250 Neutral 155-852-130 Mg) 1 tab QID PO 10/14/16 21:00 11/13/16 20:59 10/16/16 08:41 1 TAB Cholecalciferol (Vitamin D Tab) 1,000 inter.unit DAILY PO 10/16/16 09:00 11/15/16 08:59 10/16/16 08:40 1,000 INTER.UNIT Hydrocortisone (Cortef Tab) 5 mg DAILY@1700 PO 10/15/16 17:00 11/14/16 16:59 10/15/16 17:04 5 MG Hydrocortisone (Cortef Tab) 15 mg QAM PO 10/16/16 09:00 11/15/16 08:59 10/16/16 08:39 15 MG Levothyroxine Sodium (Synthroid Tab) 125 mcg DAILYBB PO 10/16/16 06:00 11/15/16 05:59 10/16/16 05:44 125 MCG Calcium/Vitamin D (Caltrate Plus Tab) 1 tab DAILY PO 10/16/16 09:00 11/15/16 08:59 10/16/16 08:40 1 TAB Lactobacillus Acidophilus (Floranex Tab) 4 tab DAILY PO 10/16/16 09:00 11/15/16 08:59 10/16/16 08:38 4 TAB Imipenem/ Cilastatin Sodium 500 mg/Dextrose 110 ml @ 100 mls/hr Q6H IV 10/16/16 11:00 10/26/16 10:59 10/16/16 10:31 100 MLS/HR Objective Vital Signs Date Time Temp Pulse Resp B/P (MAP) Pulse Ox O2 Delivery O2 Flow Rate FiO2 10/16/16 07:30 Room Air 10/16/16 07:22 36.3 65 16 130/81 (97) 97 Room Air 10/16/16 00:21 Room Air 10/15/16 23:54 36.2 61 18 154/82 (106) 94 Room Air 10/15/16 15:14 36.5 64 16 144/85 (104) 98 Room Air 10/15/16 15:00 Room Air Physical Exam General Appearance: WD/WN, no apparent distress Eyes: normal inspection, sclerae normal ENT: hearing grossly normal Neck: supple, trachea midline Respiratory/Chest: no respiratory distress, no accessory muscle use Cardiovascular: + pertinent finding (regular rate) Extremities: normal inspection, + pertinent finding (weak) Neurologic/Psychiatric: alert, normal mood/affect Skin: normal color, warm/dry, no rash Laboratory Results Item Value Date Time Urine Culture - Preliminary Resulted 10/15/16 1350 Urine , Clean Catch Probable Pseudomonas Species Last 24 Hours Test 10/15/16 13:50 10/15/16 17:24 10/15/16 20:48 10/16/16 05:30 Urine Color YELLOW Urine Appearance CLEAR Urine pH 7.5 Urine Specific [place] 1.016 Urine Protein NEG Urine Glucose (UA) NEG Urine Ketones NEG Urine Occult Blood NEG Urine Nitrite NEG Urine Bilirubin NEG Urine Urobilinogen NEG Urine Leukocyte Esterase LARGE Urine WBC (Auto) >30 /hpf Urine RBC (Auto) 0-4 /hpf Urine Hyaline Casts (Auto) 1-5 /lpf Urine Epithelial Cells (Auto) >30 /lpf Urine Bacteria (Auto) NEG Urine Renal Epithelial Cells 10-20 /lpf Bedside Glucose 135 mg/dl 150 mg/dl White Blood Count 13.72 K/uL Red Blood Count 3.73 M/uL Hemoglobin 11.0 g/dL Hematocrit 33.0 % Mean Corpuscular Volume 88.5 fL Mean Corpuscular Hemoglobin 29.5 pg Mean Corpuscular Hemoglobin Concent 33.3 g/dl Platelet Count 193 K/uL Mean Platelet Volume 11.2 fL RDW Standard Deviation 53.2 fL RDW Coefficient of Variation 16.9 % Nucleated RBC Absolute Count (auto) 0.03 K/uL Neutrophils % (Manual) 72.7 % Lymphocytes % (Manual) 20.2 % Monocytes % (Manual) 2.6 % Eosinophils % (Manual) 0.9 % Metamyelocytes % 1.8 % Myelocytes % 1.8 % Nucleated Red Blood Cells % 0.2 % Neutrophils # (Manual) 9.97 K/uL Total Absolute Neutrophils 9.97 K/uL Lymphocytes # (Manual) 2.77 K/uL Total Absolute Lymphocytes 2.77 K/uL Monocytes # (Manual) 0.36 K/uL Eosinophils # (Manual) 0.12 K/uL Metamyelocytes # 0.25 K/uL Myelocytes # 0.25 K/uL Polychromasia 1+ Basophilic Stippling 1+ Anisocytosis PRESENT Sodium Level 138 mmol/L Potassium Level 3.4 mmol/L Chloride Level 102 mmol/L Carbon Dioxide Level 28 mmol/L Anion Gap 8.0 mmol/L Blood Urea Nitrogen 16 mg/dl Creatinine 0.76 mg/dl Est Creatinine Clear Calc Drug Dose 57.6 ml/min Estimated GFR () 85.9 Estimated GFR (Non- 74.1 BUN/Creatinine Ratio 21.4 Random Glucose 98 mg/dl Phosphorus Level 2.8 mg/dl Albumin 2.3 gm/dl Test 10/16/16 08:09 10/16/16 11:58 Bedside Glucose 97 mg/dl 124 mg/dl Assessment and Plan Patient with acute cholangitis who has been having some mild confusion with new urine culture growing probable Pseudomonas species. The patient is currently on IV ertapenem, but will change to IV imipenem pending repeat urine culture results. If the patient does not tolerate IV imipenem well, will return to previous regimen of IV Azactam, Flagyl, and vancomycin. We will continue to follow. Case reviewed and agree with above assessment.
[2016-10-16 13:25] LABS: CALCIUM 7.7 mg/dl (8.5-10.1)
[2016-10-16 15:32] VITALS: BP 156/79; PULSE 73; TEMP 36.4; O2SAT 93
--- NOTE | 2016-10-16 17:29 | Progress Note ---
Subjective Date of Service: Oct 16, 2016. Subjective Pt evaluation today including: conversation w/ patient, conversation w/ family , physical exam, chart review, lab review, review of inpatient medication list feeling better slept well last night no f/c/s. no abdominal pain no postprandial pain. out of bed in chair. discussed abx change. had quetions about ysday's confusion answered all to the best of my ability and to his satisfaction. Problem List Medical Problems: (1) Acute kidney injury Status: Acute (2) VERO (acute kidney injury) Status: Acute (3) Altered mental status Status: Acute (4) Altered mental status Status: Acute (5) Altered mental status Status: Acute (6) Altered mental status Status: Acute (7) Altered mental status Status: Acute (8) Ascending cholangitis Status: Acute (9) Atrial fibrillation Status: Acute (10) Dehydration Status: Acute (11) Dysarthria Status: Acute (12) Hearing voices Status: Acute (13) Hydronephrosis Status: Acute (14) Hydronephrosis Status: Acute (15) Kidney stone Status: Acute (16) Leukocytosis Status: Acute (17) Medication reaction Status: Acute (18) Nausea & vomiting Status: Acute (19) Pleural effusion Status: Acute (20) Right ureteral calculus Status: Acute (21) Sepsis Status: Acute (22) Sepsis Status: Acute (23) Urinary tract infection Status: Acute Review of Systems ROS otherwise negative except for as above Objective Vital Signs Date Time Temp Pulse Resp B/P (MAP) Pulse Ox O2 Delivery O2 Flow Rate FiO2 10/16/16 15:32 36.4 73 16 156/79 (104) 93 Room Air 10/16/16 07:30 Room Air 10/16/16 07:22 36.3 65 16 130/81 (97) 97 Room Air 10/16/16 00:21 Room Air 10/15/16 23:54 36.2 61 18 154/82 (106) 94 Room Air Physical Exam General Appearance: no apparent distress Eyes: EOMI ENT: hearing grossly normal Neck: trachea midline Respiratory/Chest: no respiratory distress, no accessory muscle use Abdomen: soft Extremities: normal range of motion 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, 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 Skin: normal color, warm/dry Laboratory Results Last 24 Hours Test 10/15/16 20:48 10/16/16 05:30 10/16/16 08:09 10/16/16 11:58 Bedside Glucose 150 mg/dl 97 mg/dl 124 mg/dl White Blood Count 13.72 K/uL Red Blood Count 3.73 M/uL Hemoglobin 11.0 g/dL Hematocrit 33.0 % Mean Corpuscular Volume 88.5 fL Mean Corpuscular Hemoglobin 29.5 pg Mean Corpuscular Hemoglobin Concent 33.3 g/dl Platelet Count 193 K/uL Mean Platelet Volume 11.2 fL RDW Standard Deviation 53.2 fL RDW Coefficient of Variation 16.9 % Nucleated RBC Absolute Count (auto) 0.03 K/uL Neutrophils % (Manual) 72.7 % Lymphocytes % (Manual) 20.2 % Monocytes % (Manual) 2.6 % Eosinophils % (Manual) 0.9 % Metamyelocytes % 1.8 % Myelocytes % 1.8 % Nucleated Red Blood Cells % 0.2 % Neutrophils # (Manual) 9.97 K/uL Total Absolute Neutrophils 9.97 K/uL Lymphocytes # (Manual) 2.77 K/uL Total Absolute Lymphocytes 2.77 K/uL Monocytes # (Manual) 0.36 K/uL Eosinophils # (Manual) 0.12 K/uL Metamyelocytes # 0.25 K/uL Myelocytes # 0.25 K/uL Polychromasia 1+ Basophilic Stippling 1+ Anisocytosis PRESENT Sodium Level 138 mmol/L Potassium Level 3.4 mmol/L Chloride Level 102 mmol/L Carbon Dioxide Level 28 mmol/L Anion Gap 8.0 mmol/L Blood Urea Nitrogen 16 mg/dl Creatinine 0.76 mg/dl Est Creatinine Clear Calc Drug Dose 57.6 ml/min Estimated GFR () 85.9 Estimated GFR (Non- 74.1 BUN/Creatinine Ratio 21.4 Random Glucose 98 mg/dl Calcium Level 7.7 mg/dl Phosphorus Level 2.8 mg/dl Albumin 2.3 gm/dl Assessment and Plan Metabolic/Septic encephalopathy in setting acute cholangitis and CBD stones treated with ERCP and multiple IV antibiotics. tolerating low fat diet well changed to primaxin due to pseudomonas in urine but biliary coverage essentially the same multifactorial encephalopathy but biliary sepsis/hospitalization being biggest factors, UTI may play a small role ongoing abx to hopefully be able to overlap w this and UTI -for surgery follow up re timing of choley in ~1 week mild leukocytosis clinically overall situation has improved, d/w family - continue to follow WBC and ongoing clinical situation pseudomonas in urine despite only 30,000 col/ml she's high risk and frail - agree w treatment - for now chnaged to primaxin to ensure coverage pending ID&S Elevated LFTs ongoing improvement, continue to monitor Hypernatremia Normalized reduce BMP to daily for now, especially since PO intake should have her situation be much less brittle Hypokalemia / Hypophosphatemia Encourage oral hydration to thirst Increased desmopressin 0.1 g twice a day daily labs outpt endocrine f/u replace K, follow Panyhypopituitarism Stress dose steroids -->now on PO cortef as at home. Continue Synthroid Type II DM Glycemic consult DVT proph heparin SQ
[2016-10-16] MEDS: ARTIFICIAL TEARS OP SOLN OP SCH ×4 (20:48→20:58)
[2016-10-16] MEDS: LATANOPROST 0.005% OP SOLN 2.5 ML BTL OPB SCH (20:48)
[2016-10-16 23:40] VITALS: BP 153/85; PULSE 76; TEMP 36.4; O2SAT 97
[2016-10-17] MEDS: LEVOTHYROXINE 125 MCG TAB PO SCH (05:12)
[2016-10-17] MEDS: IMIPENEM/CILASTATIN IV 500 MG in DEXTROSE 5% 100ML 100 ML IV SCH (05:12)
[2016-10-17 05:56] LABS: BASO % 0.2 %; BASO ABS # 0.02 K/uL (0-0.2); COMPLETE YES; EOS % 1.9 %; HEMATOCRIT 31.5 % (37-47); IG% 4.1 %; LYMPH % 16.9 %; LYMPH ABS # 2.06 K/uL (1.2-3.4); MEAN CORPUSCULAR HEMOGLOBIN 29.6 pg (25-34); MEAN CORPUSCULAR HGB CONC 33.7 g/dl (32-36); MEAN PLATELET VOLUME 11.3 fL (7.4-10.4); MONO % 9.3 %; NEUT % 67.6 %; PLATELET COUNT 190 K/uL (130-400); RED BLOOD COUNT 3.58 M/uL (4.2-5.4); WHITE BLOOD COUNT 12.19 K/uL (4.8-10.8)
[2016-10-17 06:30] LABS: BUN/CREATININE RATIO 19.2 (10-20); CALCIUM 7.7 mg/dl (8.5-10.1); CREATININE 0.77 mg/dl (0.60-1.20); POTASSIUM 3.1 mmol/L (3.5-5.1)
[2016-10-17 08:02] VITALS: BP 128/74; PULSE 66; TEMP 36.6; O2SAT 93
[2016-10-17] MEDS ORDERED: POTASSIUM CHLORIDE 10 MEQ TABCR PO STA (08:35)
[2016-10-17] MEDS: POT PHOSPHATE MONOBASIC W/ SOD TAB PO SCH ×4 (08:48→21:39)
[2016-10-17] MEDS: LACTOBACILLUS ACIDOPHILUS (FLORANEX) TAB PO SCH ×3 (08:48→18:37)
[2016-10-17] MEDS: CALCIUM 600MG + VIT D 400 IU TAB PO SCH (08:49)
[2016-10-17] MEDS: CHOLECALCIFEROL 1000 INTER.UNIT TAB PO SCH (08:49)
[2016-10-17] MEDS: DESMOPRESSIN ACETATE 0.1 MG TAB PO SCH (08:49)
[2016-10-17] MEDS: PANTOprazole SOD 40 MG TAB PO SCH (08:50)
[2016-10-17] MEDS: HYDROCORTISONE 10 MG TAB PO SCH ×2 (08:50→17:11)
[2016-10-17] MEDS: INSULIN ASPART 100 UNITS/ML 3 ML PEN SC SCH ×4 (08:57→21:00)
[2016-10-17] MEDS: AMMONIUM LACTATE 12% LOTION 225 GM BTL EXT SCH (08:59)
[2016-10-17] MEDS: HEPARIN SOD 5000 UNIT/0.5 ML CARP SQ SCH ×2 (09:10→21:43)
[2016-10-17] MEDS ORDERED: AZTREONAM IV 1,000 MG in DEXTROSE 5% 100ML 100 ML IV SCH (11:00)
[2016-10-17] MEDS ORDERED: LEVOFLOXACIN 500 MG TAB PO SCH (11:00)
[2016-10-17] MEDS ORDERED: VANCOMYCIN CONSULT ACTIVE PRN (11:00)
[2016-10-17] MEDS: CALCITRIOL 0.25 MCG CAP PO SCH (11:35)
[2016-10-17] MEDS ORDERED: VANCOMYCIN INJ 1,750 MG in SODIUM CHLORIDE 0.9% 500ML 500 ML IV SCH (12:00)
[2016-10-17] MEDS: LEVOFLOXACIN 500 MG TAB PO SCH (12:56)
[2016-10-17] MEDS: METRONIDAZOLE 500 MG TAB PO SCH ×2 (13:26→21:40)
[2016-10-17 14:59] VITALS: BP 120/77; PULSE 66; TEMP 36.7; O2SAT 93
[2016-10-17 15:12] LABS: BUN/CREATININE RATIO 15.6 (10-20); CALCIUM 7.9 mg/dl (8.5-10.1); CREATININE 0.95 mg/dl (0.60-1.20)
--- NOTE | 2016-10-17 16:20 | Infectious Disease Progress Nt ---
Progress Note Date of Service Oct 17, 2016. Subjective Pt evaluation today including: conversation w/ patient, conversation w/ family , physical exam, chart review, lab review, review of studies, conversation w/ technical assistance consultant (Dr. Owusu), review of inpatient medication list Patient is feeling slightly improved. She is cold today, and is bundled up during my visit. Her urine culture is growing Pseudomonas that is resistant to imipenem only. The patient was changed from imipenem to p.o. Levaquin. I did discuss this patient in detail with pharmacy and Dr. Owusu. Her white blood cell count today was 12.19. Her creatinine was 0.77. She has been afebrile. She has had no further imaging studies completed. All Other Systems: Reviewed and Negative Medications Current Inpatient Medications Medications (Trade) Dose Ordered Sig/Natalee Route Start Time Stop Time Status Last Admin Dose Admin Calcitriol (Rocaltrol Cap) 0.25 mcg DAILY PO 10/09/16 09:00 11/08/16 08:59 10/17/16 11:35 0.25 MCG Latanoprost (Xalatan Oph Soln) 1 drops HS OPB 10/09/16 21:00 11/08/16 20:59 10/16/16 20:48 1 DROPS Artificial Tears (Artificial Tears) 1 drops Q4H PRN OP 10/09/16 01:15 11/08/16 01:14 Pantoprazole Sodium (Protonix Tab) 40 mg QAM PO 10/11/16 09:00 11/10/16 08:59 10/17/16 08:50 40 MG Heparin Sodium (Porcine) (Heparin 10 Unit/ ml 5 ml Flush) 5 ml PRN PRN FLUSH 10/10/16 19:00 11/09/16 18:59 10/17/16 06:37 5 ML Insulin Aspart (novoLOG ASPART) SLIDING SCALE G... ACHS SC 10/11/16 08:00 11/10/16 07:59 10/15/16 13:17 1 UNITS Ammonium Lactate (Lac-Hydrin) 1 appl DAILY EXT 10/11/16 09:00 11/10/16 08:59 Artificial Tears (Artificial Tears) 2 drops BID@2029,2129 OP 10/11/16 20:30 11/10/16 20:29 10/16/16 20:58 2 DROPS Heparin Sodium (Porcine) (Heparin Sq 5000 Unit/0.5ml) 5,000 unit Q12 SQ 10/12/16 21:00 11/11/16 20:59 10/17/16 09:10 5,000 UNIT Desmopressin Acetate (Desmopressin Acetate) 0.1 mg BID PO 10/14/16 10:00 11/08/16 09:59 10/17/16 08:49 0.1 MG Potassium/ Phosphorus/Sodium (Phospha 250 Neutral 155-852-130 Mg) 1 tab QID PO 10/14/16 21:00 11/13/16 20:59 10/17/16 08:48 1 TAB Cholecalciferol (Vitamin D Tab) 1,000 inter.unit DAILY PO 10/16/16 09:00 11/15/16 08:59 10/17/16 08:49 1,000 INTER.UNIT Hydrocortisone (Cortef Tab) 5 mg DAILY@1700 PO 10/15/16 17:00 11/14/16 16:59 10/16/16 17:26 5 MG Hydrocortisone (Cortef Tab) 15 mg QAM PO 10/16/16 09:00 11/15/16 08:59 10/17/16 08:50 15 MG Levothyroxine Sodium (Synthroid Tab) 125 mcg DAILYBB PO 10/16/16 06:00 11/15/16 05:59 10/17/16 05:12 125 MCG Calcium/Vitamin D (Caltrate Plus Tab) 1 tab DAILY PO 10/16/16 09:00 11/15/16 08:59 10/17/16 08:49 1 TAB Lactobacillus Acidophilus (Floranex Tab) 4 tab TIDM PO 10/17/16 12:30 11/16/16 12:29 Metronidazole (Flagyl Tab) 500 mg TID PO 10/17/16 14:00 10/27/16 13:59 Levofloxacin (Levaquin Tab) 500 mg DAILY@11 PO 10/17/16 12:00 10/27/16 11:59 Objective Vital Signs Date Time Temp Pulse Resp B/P (MAP) Pulse Ox O2 Delivery O2 Flow Rate FiO2 10/17/16 08:02 36.6 66 16 128/74 (92) 93 Room Air 10/17/16 07:30 Room Air 10/16/16 23:47 Room Air 10/16/16 23:40 36.4 76 16 153/85 (107) 97 Room Air 10/16/16 15:32 36.4 73 16 156/79 (104) 93 Room Air 10/16/16 15:30 Room Air Physical Exam General Appearance: WD/WN, no apparent distress Eyes: normal inspection, sclerae normal ENT: hearing grossly normal Neck: supple, trachea midline Respiratory/Chest: no respiratory distress, no accessory muscle use Cardiovascular: + pertinent finding (regular rate) Extremities: normal range of motion Neurologic/Psychiatric: alert, normal mood/affect Skin: normal color, warm/dry Laboratory Results RUN DATE: 10/17/16 [facility] PAGE 1 RUN TIME: 1208 Specimen Inquiry PATIENT: ARTEMIO ANDERSON LOC: [facility] U # : [id number] AGE/SX: 81/F ROOM: [facility] REG : 10/09/[address]: Abel Owusu D.O. : 1935 BED: 2 DIS : STATUS: ADM IN TLOC: SPEC #: [id number] JOSHUA: 10/15/16 STATUS: SHARONDA REQ #: [id number] RECD: 10/15/16 [facility] [address]: Jessica Hauser , RVIKA SOURCE: UR, CC ENTR: 10/15/[address] [facility] [address]: Lamberto Alva M.D. SPDESC: Zhou Booth MD, Navatha ., Brandon Spears, Primo Haro M.D. Miller, Howard I., MD, Urology Abel Owusu D.O. Roe, Kevin, D.O. ORDERED: CULTURE JUANCLEDEIDRA COMMENTS: Has Specimen Been Obtained/Collected? Y Procedure Result Verified Site URINE CULTURE Final 10/17/16-1207 Organism 1 PSEUDOMONAS AERUGINOSA COLONY COUNT 30,000 CFU/ml SENS SENSITIVITY TO FOLLOW 1. PSEUDOMONAS AERUGINOSA Target Route Dose RX AB Cost M.I.C. IQ ------ ----- ------ -- ------ -------- - ------ CEFTAZIDIME S 4 CEFEPIME S <=4 IMIPENEM R >8 AZTREONAM S <=4 GENTAMICIN S <=4 TOBRAMYCIN S <=4 AMIKACIN S <=16 CIPROFLOXACIN S <=1 LEVOFLOXACIN S <=2 PIP/TAZO S <=16 S = SENSITIVE I = INTERMEDIATE R = RESISTANT Item Value Date Time Urine Culture - Final Complete 10/15/16 1350 Urine , Clean Catch Pseudomonas Aeruginosa Blood Culture - Final Complete 10/08/16 2222 Blood NO GROWTH Last 24 Hours Test 10/16/16 16:57 10/16/16 20:38 10/17/16 05:35 10/17/16 07:59 Bedside Glucose 141 mg/dl 151 mg/dl 100 mg/dl White Blood Count 12.19 K/uL Red Blood Count 3.58 M/uL Hemoglobin 10.6 g/dL Hematocrit 31.5 % Mean Corpuscular Volume 88.0 fL Mean Corpuscular Hemoglobin 29.6 pg Mean Corpuscular Hemoglobin Concent 33.7 g/dl Platelet Count 190 K/uL Mean Platelet Volume 11.3 fL Neutrophils (%) (Auto) 67.6 % Lymphocytes (%) (Auto) 16.9 % Monocytes (%) (Auto) 9.3 % Eosinophils (%) (Auto) 1.9 % Basophils (%) (Auto) 0.2 % Neutrophils # (Auto) 8.25 K/uL Lymphocytes # (Auto) 2.06 K/uL Monocytes # (Auto) 1.13 K/uL Eosinophils # (Auto) 0.23 K/uL Basophils # (Auto) 0.02 K/uL RDW Standard Deviation 52.5 fL RDW Coefficient of Variation 16.8 % Immature Granulocyte % (Auto) 4.1 % Immature Granulocyte # (Auto) 0.50 K/uL Sodium Level 132 mmol/L Potassium Level 3.1 mmol/L Chloride Level 97 mmol/L Carbon Dioxide Level 29 mmol/L Anion Gap 6.0 mmol/L Blood Urea Nitrogen 15 mg/dl Creatinine 0.77 mg/dl Est Creatinine Clear Calc Drug Dose 56.9 ml/min Estimated GFR () 84.5 Estimated GFR (Non- 72.9 BUN/Creatinine Ratio 19.2 Random Glucose 102 mg/dl Calcium Level 7.7 mg/dl Test 10/17/16 08:35 Assessment and Plan Patient with acute cholangitis and Pseudomonas UTI. The patient previously on IV Primaxin, but her Pseudomonas culture showed resistance to Primaxin. She was placed on p.o. Levaquin. She has not received a dose yet, but after discussion with Dr. Owusu, it is felt that a regimen of p.o. Levaquin and p.o. Flagyl would be easiest for this patient upon discharge if she can tolerate it. Therefore, will trial p.o. Levaquin and restart p.o. Flagyl as well. The patient likely will need antibiotic therapy up until her cholecystectomy. I did discuss this patient with her nurse as well and told her to monitor her for symptoms such as rash. We will continue to follow this patient. Case reviewed and agree with above assessment.
--- NOTE | 2016-10-17 16:55 | Progress Note ---
Subjective Date of Service: Oct 17, 2016. Subjective Pt evaluation today including: conversation w/ patient, conversation w/ family (revisited and d/w ), physical exam, chart review, lab review, review of inpatient medication list feeling better no pain no f/c/s. no urinary sx. no postprandial sx. eating Ok. d/w pt and home nurse then revisited and d/w regarding current working dx's and plans. all questions answered to the best of my ability. no other acute issues, plan will be home on PO abx tomorrow Problem List Medical Problems: (1) Acute kidney injury Status: Acute (2) VERO (acute kidney injury) Status: Acute (3) Altered mental status Status: Acute (4) Altered mental status Status: Acute (5) Altered mental status Status: Acute (6) Altered mental status Status: Acute (7) Altered mental status Status: Acute (8) Ascending cholangitis Status: Acute (9) Atrial fibrillation Status: Acute (10) Dehydration Status: Acute (11) Dysarthria Status: Acute (12) Hearing voices Status: Acute (13) Hydronephrosis Status: Acute (14) Hydronephrosis Status: Acute (15) Kidney stone Status: Acute (16) Leukocytosis Status: Acute (17) Medication reaction Status: Acute (18) Nausea & vomiting Status: Acute (19) Pleural effusion Status: Acute (20) Right ureteral calculus Status: Acute (21) Sepsis Status: Acute (22) Sepsis Status: Acute (23) Urinary tract infection Status: Acute Review of Systems all other ROS otherwise negative except for as above Objective Vital Signs Date Time Temp Pulse Resp B/P (MAP) Pulse Ox O2 Delivery O2 Flow Rate FiO2 10/17/16 16:00 Room Air 10/17/16 14:59 36.7 66 16 120/77 (91) 93 Room Air 10/17/16 08:02 36.6 66 16 128/74 (92) 93 Room Air 10/17/16 07:30 Room Air 10/16/16 23:47 Room Air 10/16/16 23:40 36.4 76 16 153/85 (107) 97 Room Air Physical Exam General Appearance: no apparent distress Eyes: EOMI ENT: hearing grossly normal Neck: trachea midline Respiratory/Chest: no respiratory distress, no accessory muscle use Extremities: normal range of motion Neurologic/Psychiatric: hims clerk II-XII nml as tested, alert, normal mood/affect Skin: normal color, warm/dry Laboratory Results Last 24 Hours Test 10/16/16 16:57 10/16/16 20:38 10/17/16 05:35 10/17/16 07:59 Bedside Glucose 141 mg/dl 151 mg/dl 100 mg/dl White Blood Count 12.19 K/uL Red Blood Count 3.58 M/uL Hemoglobin 10.6 g/dL Hematocrit 31.5 % Mean Corpuscular Volume 88.0 fL Mean Corpuscular Hemoglobin 29.6 pg Mean Corpuscular Hemoglobin Concent 33.7 g/dl Platelet Count 190 K/uL Mean Platelet Volume 11.3 fL Neutrophils (%) (Auto) 67.6 % Lymphocytes (%) (Auto) 16.9 % Monocytes (%) (Auto) 9.3 % Eosinophils (%) (Auto) 1.9 % Basophils (%) (Auto) 0.2 % Neutrophils # (Auto) 8.25 K/uL Lymphocytes # (Auto) 2.06 K/uL Monocytes # (Auto) 1.13 K/uL Eosinophils # (Auto) 0.23 K/uL Basophils # (Auto) 0.02 K/uL RDW Standard Deviation 52.5 fL RDW Coefficient of Variation 16.8 % Immature Granulocyte % (Auto) 4.1 % Immature Granulocyte # (Auto) 0.50 K/uL Sodium Level 132 mmol/L Potassium Level 3.1 mmol/L Chloride Level 97 mmol/L Carbon Dioxide Level 29 mmol/L Anion Gap 6.0 mmol/L Blood Urea Nitrogen 15 mg/dl Creatinine 0.77 mg/dl Est Creatinine Clear Calc Drug Dose 56.9 ml/min Estimated GFR () 84.5 Estimated GFR (Non- 72.9 BUN/Creatinine Ratio 19.2 Random Glucose 102 mg/dl Calcium Level 7.7 mg/dl Test 10/17/16 14:21 Chloride Level 92 mmol/L Carbon Dioxide Level 26 mmol/L Anion Gap 7.0 mmol/L Blood Urea Nitrogen 15 mg/dl Creatinine 0.95 mg/dl Est Creatinine Clear Calc Drug Dose 46.1 ml/min Estimated GFR () 65.6 Estimated GFR (Non- 56.6 BUN/Creatinine Ratio 15.6 Random Glucose 127 mg/dl Calcium Level 7.9 mg/dl Assessment and Plan Metabolic/Septic encephalopathy in setting acute cholangitis and CBD stones treated with ERCP and multiple IV antibiotics. tolerating low fat diet well to cover UTI and biliary --> levaquin; ongoing metronidazole for biliary as well. 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 Continue Synthroid Type II DM Glycemic consult, conitnue to follow sugars DVT proph heparin SQ dispo - hopefully home tomorrow on PO abx. since had listed allergy to cipro, need to ensure she tolerates two doses of levaquin before it's clear there's no allergy. doubt there will be, but far safer to evaluate this in inpatient setting; also far safer/better overall to be able to hopefully dc on PO abx than invasiveness/risk of PICC and home IV abx
[2016-10-17 18:45] LABS: POTASSIUM 3.7 mmol/L (3.5-5.1)
[2016-10-17] MEDS: ARTIFICIAL TEARS OP SOLN OP SCH ×4 (21:37→22:04)
[2016-10-17] MEDS: LATANOPROST 0.005% OP SOLN 2.5 ML BTL OPB SCH (21:38)
[2016-10-17 23:55] VITALS: BP 152/89; PULSE 77; TEMP 36.4; O2SAT 95
[2016-10-18 06:03] LABS: HEMATOCRIT 31.2 % (37-47); MEAN CELL VOLUME 88.1 fL (80-100); MEAN CORPUSCULAR HEMOGLOBIN 31.1 pg (25-34); MEAN CORPUSCULAR HGB CONC 35.3 g/dl (32-36); MEAN PLATELET VOLUME 11.8 fL (7.4-10.4); PLATELET COUNT 180 K/uL (130-400); RED BLOOD COUNT 3.54 M/uL (4.2-5.4); WHITE BLOOD COUNT 11.54 K/uL (4.8-10.8)
[2016-10-18] MEDS: LEVOTHYROXINE 125 MCG TAB PO SCH (06:18)
[2016-10-18 06:30] LABS: BASOPHIL % 0.9 %; COMPLETE YES; EOSINOPHIL % 1.8 %; LYMPH ABS # 1.02 K/uL (1.2-3.4); LYMPHOCYTE % 8.8 %; META ABS # 0.51 K/uL (0-0); METAMYELOCYTE % 4.4 %; NEUTROPHILS % 75.3 %
[2016-10-18 06:36] LABS: BUN/CREATININE RATIO 15.1 (10-20); CREATININE 0.89 mg/dl (0.60-1.20); POTASSIUM 3.4 mmol/L (3.5-5.1)
[2016-10-18 07:07] LABS: CALCIUM 8.6 mg/dl (8.5-10.1)
[2016-10-18 07:45] VITALS: BP 114/68; PULSE 72; TEMP 36.7; O2SAT 92
[2016-10-18] MEDS ORDERED: POTASSIUM CHLORIDE 10 MEQ TABCR PO ONE (08:45)
[2016-10-18] MEDS ORDERED: DESMOPRESSIN ACETATE 0.1 MG TAB PO SCH (09:00)
[2016-10-18] MEDS: AMMONIUM LACTATE 12% LOTION 225 GM BTL EXT SCH (09:00)
[2016-10-18] MEDS: LACTOBACILLUS ACIDOPHILUS (FLORANEX) TAB PO SCH ×3 (09:09→17:48)
[2016-10-18] MEDS: CALCITRIOL 0.25 MCG CAP PO SCH (09:09)
[2016-10-18] MEDS: CALCIUM 600MG + VIT D 400 IU TAB PO SCH (09:09)
[2016-10-18] MEDS: CHOLECALCIFEROL 1000 INTER.UNIT TAB PO SCH (09:09)
[2016-10-18] MEDS: POT PHOSPHATE MONOBASIC W/ SOD TAB PO SCH ×3 (09:10→17:47)
[2016-10-18] MEDS: PANTOprazole SOD 40 MG TAB PO SCH (09:10)
[2016-10-18] MEDS: HYDROCORTISONE 10 MG TAB PO SCH ×2 (09:11→17:47)
[2016-10-18] MEDS: METRONIDAZOLE 500 MG TAB PO SCH ×2 (09:11→15:32)
[2016-10-18] MEDS: INSULIN ASPART 100 UNITS/ML 3 ML PEN SC SCH ×2 (09:18→12:00)
[2016-10-18] MEDS: HEPARIN SOD 5000 UNIT/0.5 ML CARP SQ SCH (09:21)
[2016-10-18] MEDS ORDERED: LVQ500 PO (09:51)
[2016-10-18] MEDS ORDERED: MTR500 PO (09:51)
--- NOTE | 2016-10-18 10:01 | Discharge Instructions ---
Discharge Instructions Date of Service Oct 18, 2016. Admission Reason for Admission: Acute Cholecystitis Discharge Discharge Diagnosis / Problem: cholangitis (infection involving the biliary tree) Discharge Goals Goal(s): Decrease discomfort, Diagnostic testing, Therapeutic intervention Activity Recommendations Activity Limitations: resume your previous activity . Instructions / Follow-Up Instructions / Follow-Up cholangitis -the situation has been stabilized with the ERCP/stenting - but in the near future you'll need to have your gallbladder removed. follow up with surgery next week to have them re-evaluate and help determine timing for surgery -we've written to continue the levaquin and flagyl (antibiotics) for another 10 days, but in large part the full duration will be determined by what surgery sees in follow up and when your gallbladder is going to be removed -obviously a return of fever, a worsening of abdominal pain, or new nausea/ vomiting needs to be evaluated immediately -we've asked for home nursing to draw labs in this respect on 10/22 (CBC, CMP) -for now, hold off on your aspirin - surgeons generally prefer you be off medications like this for a week prior to surgery when it's possible, so it's ordered to "stop" but really this is just for the short term until you're post- op from having your gallbladder out -you can use tylenol for pain as needed, but because your liver is still a little inflamed from everything that was going on, strictly stay under 2000mg in any 24 hour period diabetes -you've barely needed any insulin while you've been here, and therefore to avoid the risk of provoking low sugars, we've instructed you to hold off on insulin for now -- this is not likely to be a permanent situation - so continue to follow blood sugars at least twice a day; if you're starting to see numbers above 200, call Dr Fung and/or the [facility] for further instructions on resuming insulin sodium/potassium/fluid balance -things are stabilizing overall, the situation was much more dynamic while you were so sick - but now we've got you back to your regular medications in this respect -we've asked home nursing to check a basic metabolic panel tomorrow with results to go to Dr Fung so that if dosing adjustments on the DDAVP, potassium, or chlorthalidone need to be made, he can instruct you further urinary tract infection -the pseudomonas in your urine is sensitive to levaquin, so the same antibiotics for your gallbladder will clear this infection Current Hospital Diet Patient's current hospital diet: Low Fat Diet, Diabetes Type 2 Diet Discharge Diet Recommended Diet: Diabetes Type 2 Diet, Low Fat Diet Procedures Procedures Performed: Endoscopic Retrograde Cholangiopancreatogram with Stent Placement Pending Studies Studies pending at discharge: no Laboratory Results Hemoglobin A1c Test 08/31/16 13:13 Range/Units Estimated Average Glucose 146 mg/dl Hemoglobin A1c 6.7 H 4.5-5.6 % Lipid Panel Test 08/31/16 13:13 Range/Units Triglycerides Level 92 0-150 mg/dl Cholesterol Level 150 0-200 mg/dl HDL Cholesterol 65 mg/dl Cholesterol/HDL Ratio 2.3 LDL Cholesterol, Calculated 67 mg/dl Medical Emergencies . Who to Call and When: Medical Emergencies: If at any time you feel your situation is an emergency, please call 911 immediately. . Non-Emergent Contact Non-Emergency issues call your: Primary Care Provider, Surgeon . . "Provider Documentation" section prepared by Abel Owusu. . VTE Core Measure Inpt VTE Proph given/why not?: Unfractionated heparin SQ
--- NOTE | 2016-10-18 10:29 | Infectious Disease Progress Nt ---
Progress Note Date of Service Oct 18, 2016. Subjective Pt evaluation today including: conversation w/ patient, physical exam, chart review, lab review, review of studies, conversation w/ literacy consultant (Dr. Owusu) , review of inpatient medication list Patient is feeling slightly improved today. Her WBC count is 11.54. She appears to be tolerating PO Levaquin well so far. She has not developed rash or itching. She is anticipating possible D/C home this afternoon. She will follow up with surgery as outpatient to have cholecystectomy. Creatinine today was 0.89. No new cultures. No new imaging. All Other Systems: Reviewed and Negative Medications Current Inpatient Medications Medications (Trade) Dose Ordered Sig/Natalee Route Start Time Stop Time Status Last Admin Dose Admin Calcitriol (Rocaltrol Cap) 0.25 mcg DAILY PO 10/09/16 09:00 11/08/16 08:59 10/18/16 09:09 0.25 MCG Latanoprost (Xalatan Oph Soln) 1 drops HS OPB 10/09/16 21:00 11/08/16 20:59 10/17/16 21:38 1 DROPS Artificial Tears (Artificial Tears) 1 drops Q4H PRN OP 10/09/16 01:15 11/08/16 01:14 Pantoprazole Sodium (Protonix Tab) 40 mg QAM PO 10/11/16 09:00 11/10/16 08:59 10/18/16 09:10 40 MG Heparin Sodium (Porcine) (Heparin 10 Unit/ ml 5 ml Flush) 5 ml PRN PRN FLUSH 10/10/16 19:00 11/09/16 18:59 10/18/16 05:45 5 ML Insulin Aspart (novoLOG ASPART) SLIDING SCALE G... ACHS SC 10/11/16 08:00 11/10/16 07:59 10/15/16 13:17 1 UNITS Ammonium Lactate (Lac-Hydrin) 1 appl DAILY EXT 10/11/16 09:00 11/10/16 08:59 Artificial Tears (Artificial Tears) 2 drops BID@2029,2129 OP 10/11/16 20:30 11/10/16 20:29 10/17/16 22:04 2 DROPS Heparin Sodium (Porcine) (Heparin Sq 5000 Unit/0.5ml) 5,000 unit Q12 SQ 10/12/16 21:00 11/11/16 20:59 10/18/16 09:21 5,000 UNIT Potassium/ Phosphorus/Sodium (Phospha 250 Neutral 155-852-130 Mg) 1 tab QID PO 10/14/16 21:00 11/13/16 20:59 10/18/16 09:10 1 TAB Cholecalciferol (Vitamin D Tab) 1,000 inter.unit DAILY PO 10/16/16 09:00 11/15/16 08:59 10/18/16 09:09 1,000 INTER.UNIT Hydrocortisone (Cortef Tab) 5 mg DAILY@1700 PO 10/15/16 17:00 11/14/16 16:59 10/17/16 17:11 5 MG Hydrocortisone (Cortef Tab) 15 mg QAM PO 10/16/16 09:00 11/15/16 08:59 10/18/16 09:11 15 MG Levothyroxine Sodium (Synthroid Tab) 125 mcg DAILYBB PO 10/16/16 06:00 11/15/16 05:59 10/18/16 06:18 125 MCG Calcium/Vitamin D (Caltrate Plus Tab) 1 tab DAILY PO 10/16/16 09:00 11/15/16 08:59 10/18/16 09:09 1 TAB Lactobacillus Acidophilus (Floranex Tab) 4 tab TIDM PO 10/17/16 12:30 11/16/16 12:29 10/18/16 09:09 4 TAB Metronidazole (Flagyl Tab) 500 mg TID PO 10/17/16 14:00 10/27/16 13:59 10/18/16 09:11 500 MG Levofloxacin (Levaquin Tab) 500 mg DAILY@11 PO 10/17/16 12:00 10/27/16 11:59 10/17/16 12:56 500 MG Desmopressin Acetate (Desmopressin Acetate) 0.1 mg DAILY PO 10/18/16 09:00 11/08/16 09:59 10/18/16 09:07 0.1 MG Objective Vital Signs Date Time Temp Pulse Resp B/P (MAP) Pulse Ox O2 Delivery O2 Flow Rate FiO2 10/18/16 07:45 36.7 72 18 114/68 (83) 92 Room Air 10/18/16 00:15 Room Air 10/17/16 23:55 36.4 77 16 152/89 (110) 95 Room Air 10/17/16 16:00 Room Air 10/17/16 14:59 36.7 66 16 120/77 (91) 93 Room Air Physical Exam General Appearance: WD/WN, no apparent distress Eyes: normal inspection, sclerae normal ENT: hearing grossly normal Neck: supple, trachea midline Respiratory/Chest: no respiratory distress, no accessory muscle use Cardiovascular: + pertinent finding (regular rate) Extremities: normal range of motion Neurologic/Psychiatric: alert, normal mood/affect Skin: normal color, warm/dry, no rash Laboratory Results Last 24 Hours Test 10/17/16 11:42 10/17/16 14:21 10/17/16 17:00 10/17/16 20:29 Bedside Glucose 122 mg/dl 144 mg/dl 110 mg/dl Sodium Level 125 mmol/L Potassium Level 3.7 mmol/L Chloride Level 92 mmol/L Carbon Dioxide Level 26 mmol/L Anion Gap 7.0 mmol/L Blood Urea Nitrogen 15 mg/dl Creatinine 0.95 mg/dl Est Creatinine Clear Calc Drug Dose 46.1 ml/min Estimated GFR () 65.6 Estimated GFR (Non- 56.6 BUN/Creatinine Ratio 15.6 Random Glucose 127 mg/dl Calcium Level 7.9 mg/dl Test 10/18/16 05:20 10/18/16 08:02 White Blood Count 11.54 K/uL Red Blood Count 3.54 M/uL Hemoglobin 11.0 g/dL Hematocrit 31.2 % Mean Corpuscular Volume 88.1 fL Mean Corpuscular Hemoglobin 31.1 pg Mean Corpuscular Hemoglobin Concent 35.3 g/dl Platelet Count 180 K/uL Mean Platelet Volume 11.8 fL RDW Standard Deviation 53.1 fL RDW Coefficient of Variation 16.7 % Neutrophils % (Manual) 75.3 % Lymphocytes % (Manual) 8.8 % Monocytes % (Manual) 8.8 % Eosinophils % (Manual) 1.8 % Basophils % (Manual) 0.9 % Metamyelocytes % 4.4 % Neutrophils # (Manual) 8.69 K/uL Total Absolute Neutrophils 8.69 K/uL Lymphocytes # (Manual) 1.02 K/uL Total Absolute Lymphocytes 1.02 K/uL Monocytes # (Manual) 1.02 K/uL Eosinophils # (Manual) 0.21 K/uL Basophils # (Manual) 0.10 K/uL Metamyelocytes # 0.51 K/uL Blood Smear Review Red Blood Cell Morphology Unremarkable Sodium Level 132 mmol/L Potassium Level 3.4 mmol/L Chloride Level 99 mmol/L Carbon Dioxide Level 26 mmol/L Anion Gap 7.0 mmol/L Blood Urea Nitrogen 13 mg/dl Creatinine 0.89 mg/dl Est Creatinine Clear Calc Drug Dose 49.2 ml/min Estimated GFR () 70.9 Estimated GFR (Non- 61.2 BUN/Creatinine Ratio 15.1 Random Glucose 81 mg/dl Calcium Level 8.6 mg/dl Bedside Glucose 82 mg/dl Assessment and Plan Patient with acute cholangitis and Pseudomonas UTI. The patient is currently on PO Levaquin and PO Flagyl. She appears to be tolerating these well. She likely will need at least 1-2 more weeks of therapy pending surgical evaluation for cholecystectomy. She is OK for D/C from ID perspective otherwise. Thanks Case reviewed and agree with above assessment.
[2016-10-18] MEDS: LEVOFLOXACIN 500 MG TAB PO SCH (11:21)
--- NOTE | 2016-10-18 13:05 | Discharge Summary ---
Discharge Summary Date of Service Oct 18, 2016. Discharge Summary Admission Date: Oct 09, 2016 at 01:01 Discharge Date: Oct 18, 2016 Discharge Disposition: Home with services Principal Diagnosis: cholangitis Immunizations: Have You Had Influenza Vaccine: No Influenza Vaccine Date: Feb 04, 2010 History of Tetanus Vaccine?: No History of Pneumococcal: YES- [place] 2008 History of Hepatitis B Vaccine: No Procedures: Immediate Operative Summary Operative Date Oct 09, 2016. Pre-Operative Diagnosis Elevated liver enzymes, cholangitis Post-Operative Diagnosis CBD stones and Cholangitis Procedure(s) Performed Endoscopic Retrograde Cholangiopancreatogram with Stent Placement Surgeon Dr. Chappell Cotton Factor Surgeon(s) none Estimated Blood Loss none Findings CBD stones and Cholangitis Specimens none per surgeon Drains Biliary stent placed (internal) Anesthesia General Complication(s) None Disposition Recovery Room / PACU <Electronically signed by Brandon Chappell DO> [~ rep ct add3]] ERCP BILIARY DUCTAL CLINICAL HISTORY: ERCP ALREADY DONE COMPARISON STUDY: 10/08/2016 FLUOROSCOPY TIME: 1 minute 53 seconds. FINDINGS: Retrograde opacification of the common bile duct. This is followed by balloon insufflation and sweeping of the common duct. This is followed by successful stent placement. IMPRESSION: Successful stent placement to the common bile duct. Electronically signed by: Lamberto Ontiveros M.D. 10/09/2016 12:09 PM Dictated Date/Time: 10/09/2016 12:07 PM [~ rep ct add3]] ULTRASOUND RIGHT UPPER QUADRANT ABDOMEN CLINICAL HISTORY: Right upper quadrant abdominal pain. COMPARISON STUDY: Abdominal CT dated 04/13/2016. TECHNIQUE: Real-time, grayscale, and color flow sonography of the right upper quadrant of the abdomen was performed. Images are reviewed in the transverse and longitudinal planes. FINDINGS: Liver: The liver is normal in size and slightly heterogeneous in echotexture. There is no intrahepatic biliary ductal dilatation. The main portal vein is patent. Gallbladder: The gallbladder is distended. Calcified shadowing gallstones are identified. The gallbladder wall is mildly thickened measuring up to 3 mm. No pericholecystic fluid is seen. A sonographic Lujan's sign could not be assessed. The common bile duct measures up to 0.4 cm in diameter. Pancreas: Visualized portions of the pancreatic head and body are normal in appearance. The splenic vein is patent. Right kidney: Survey images of the right kidney demonstrate cortical atrophy. There is no hydronephrosis. A 1.6 cm cyst is noted in the interpolar region. Ascites: None. IMPRESSION: 1. Cholelithiasis with a distended and mildly thick-walled gallbladder. Findings are concerning for acute cholecystitis. Clinical correlation will be required. Consider nuclear hepatobiliary scan for further assessment. 2. There is no intra or extrahepatic biliary ductal dilatation. Electronically signed by: Awais Miller M.D. 10/09/2016 7:07 AM Dictated Date/Time: 10/09/2016 7:05 AM CHEST ONE VIEW PORTABLE CLINICAL HISTORY: syncope PATIENT FOUND UNRESPONSIVE COMPARISON STUDY: 08/07/2016 FINDINGS: The heart is enlarged. There is mild chronic interstitial thickening. There is no lobar consolidation. There is stable left basilar atelectasis/scarring.[ There are no significant pleural effusions. IMPRESSION: No change from the preceding study. Chronic findings. No active disease in the chest. Electronically signed by: Lico Cabral M.D. 10/08/2016 9:37 PM Dictated Date/Time: 10/08/2016 9:[address] SCAN OF THE BRAIN WITHOUT IV CONTRAST CLINICAL HISTORY: Unresponsive. Change in mental status. COMPARISON STUDY: Prior head CT scans, most recently dated 04/13/2016. TECHNIQUE: Unenhanced axial CT scan of the brain is performed from the vertex to the skull base. The patient was scanned twice due to motion artifact. CT DOSE: 1074.96 mGy.cm FINDINGS: Brain parenchyma: There are age-related involutional changes noting moderate patchy subcortical and periventricular microangiopathic change. Bifrontal and left temporal encephalomalacia are similar to previous. There is no hemorrhage, mass effect, or evidence of acute territorial ischemia by CT criteria. 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 Tovar-white matter is preserved. No extra-axial fluid collection is seen. Dural thickening along the left convexity is likely related to postoperative change. Ventricles, sulci, cisterns: Prominent secondary to involutional change. Intracranial vasculature: There is atherosclerotic calcification of the cavernous carotid intervertebral arteries.. Calvarium: There are postoperative changes from bifrontal and left sided craniotomy. There is no evidence of depressed calvarial fracture. Sinuses and mastoids: The visualized paranasal sinuses are clear. The mastoid air cells are well pneumatized. Orbits: The bony orbits are grossly intact. There are bilateral ocular lens implants. IMPRESSION: Postoperative and senescent changes as above. There is no hemorrhage, mass effect, or evidence of acute territorial ischemia by CT criteria. Electronically signed by: Awais Miller M.D. 10/09/2016 7:04 AM Dictated Date/Time: 10/09/2016 7:00 AM Last 24 Hours Test 10/17/16 14:21 10/17/16 17:00 10/17/16 20:29 10/18/16 05:20 Sodium Level 125 mmol/L 132 mmol/L Potassium Level 3.7 mmol/L 3.4 mmol/L Chloride Level 92 mmol/L 99 mmol/L Carbon Dioxide Level 26 mmol/L 26 mmol/L Anion Gap 7.0 mmol/L 7.0 mmol/L Blood Urea Nitrogen 15 mg/dl 13 mg/dl Creatinine 0.95 mg/dl 0.89 mg/dl Est Creatinine Clear Calc Drug Dose 46.1 ml/min 49.2 ml/min Estimated GFR () 65.6 70.9 Estimated GFR (Non- 56.6 61.2 BUN/Creatinine Ratio 15.6 15.1 Random Glucose 127 mg/dl 81 mg/dl Calcium Level 7.9 mg/dl 8.6 mg/dl Bedside Glucose 144 mg/dl 110 mg/dl White Blood Count 11.54 K/uL Red Blood Count 3.54 M/uL Hemoglobin 11.0 g/dL Hematocrit 31.2 % Mean Corpuscular Volume 88.1 fL Mean Corpuscular Hemoglobin 31.1 pg Mean Corpuscular Hemoglobin Concent 35.3 g/dl Platelet Count 180 K/uL Mean Platelet Volume 11.8 fL RDW Standard Deviation 53.1 fL RDW Coefficient of Variation 16.7 % Neutrophils % (Manual) 75.3 % Lymphocytes % (Manual) 8.8 % Monocytes % (Manual) 8.8 % Eosinophils % (Manual) 1.8 % Basophils % (Manual) 0.9 % Metamyelocytes % 4.4 % Neutrophils # (Manual) 8.69 K/uL Total Absolute Neutrophils 8.69 K/uL Lymphocytes # (Manual) 1.02 K/uL Total Absolute Lymphocytes 1.02 K/uL Monocytes # (Manual) 1.02 K/uL Eosinophils # (Manual) 0.21 K/uL Basophils # (Manual) 0.10 K/uL Metamyelocytes # 0.51 K/uL Blood Smear Review Red Blood Cell Morphology Unremarkable Test 10/18/16 08:02 10/18/16 11:55 Bedside Glucose 82 mg/dl 141 mg/dl -- Result Comment: PERIPHERAL SMEAR REVIEW-ARTEMIO ANDERSON The peripheral smear is reviewed at the request of the technologist to confirm the presence of blasts. The white cell count appears mildly elevated. Granulocytes predominate within the differential with left shift including rare blasts. No overt dysplastic features are identified. Lymphocytes are morphologically unremarkable. The red blood cells are morphologically unremarkable. No increase in schistocytes or spherocytes is noted. No nucleated red blood cells are seen. Platelets appear adequate in number with large and giant platelets noted. No significant platelet clumping is identified. The CBC reveals a mild leukocytosis (WBC 11.54) and normocytic anemia (H/H 11.0/31.2). The morphologic features are etiologically nonspecific. The patient presents with acute cholecystitis and a urinary tract infection. While findings may represent a reactive process, followup is suggested. Trevor Nuñez MD echo: Interpretation Summary Name: ARTEMIO ANDERSON Study Date: 10/09/2016 01:12 PM BP: 131/81 mmHg Patient Location: C.2T\\S\\S240\\S\\1 HR: 92 : 1935 (M/d/yyy) Gender: Female Height: 62 in Age: 81 yrs Ethnicity: [place] Weight: 194 lb Ordering Physician: Primo Prasad Referring Physician: Self, Referred Performed By: Deepti Heredia RDCS Reason For Study: CHF BSA: 1.9 m2 NO APICAL WINDOW, PATIENT UNABLE TO HOLD BREATH OR MOVE FOR ME -- Conclusions -- Image qualilty was sub-optimal and limited views were optained. There is mild concentric left ventricular hypertrophy. Left ventricular systolic function is normal. Grade I diastolic dysfunction, (abnormal relaxation pattern). Procedure Details A contrast injection of Definity was performed to improve assessment of LV function. Contrast was injected into an intravenous site in the left arm. One vial of Definity ultrasound contrast was diluted in normal saline to a total volume of 10 ml. A total of '2' ml of solution was administered during imaging. Lot # [id number] of Definity utilized for procedure. Expiration date NOV 06. The attending nurse who injected the contrast agent was JAN ANNE RN. Image qualilty was sub-optimal and limited views were optained. Left Ventricle The left ventricle is grossly normal size. There is mild concentric left ventricular hypertrophy. Ejection Fraction = 60-65%. Left ventricular systolic function is normal. Grade I diastolic dysfunction, (abnormal relaxation pattern). Right Ventricle The right ventricle is not well visualized. Mitral Valve The mitral valve is not well visualized. Tricuspid Valve The tricuspid valve is not well visualized. There is trace tricuspid regurgitation. Right ventricular systolic pressure is normal. Aortic Valve The valve apears bicuspid, but given the patients age this is unlikely. No hemodynamically significant valvular aortic stenosis. There is no significant aortic regurgitation. Great Vessels The aortic root is normal size. Pericardium/Pleural There is no pericardial effusion. Consultations: GI general surgery pathology to review peripheral smear infectious disease nephrology (assisting with inpatient management of hyper and hyponatremia) Medication Reconciliation New Medications: Levofloxacin (Levofloxacin) 500 Mg Tab 500 MG PO DAILY@11, #10 TAB Metronidazole (Metronidazole) 500 Mg Tab 500 MG PO TID, #30 TAB Continued Medications: Acetaminophen (Tylenol) 325 Mg Tab 650 MG PO Q6H PRN for Pain, TAB Alendronate Sodium (Alendronate Sodium) 70 Mg Tab 70 MG PO WK TAKE THIS MEDICATION ONCE WEEKLY 30 TO 60 MINUTES PRIOR TO BREAKFAST OM AM EMPTY STOMACH. DO NOT LIE DOWN AFTER TAKING THIS MEDICATION. Calcitriol (Calcitriol) 0.25 Mcg Cap 0.25 MCG PO DAILY Calcium Carbonate-Cholecalcife (Caltrate 600+D) 1 Tab Tab 1 TAB PO DAILY Chlorthalidone (Hygroton) 25 Mg Tab 12.5 MG PO DAILY, #15 Cholecalciferol (Vitamin D-3) 1,000 Unit Tab 1000 INTER.UNIT PO DAILY Desmopressin Acetate (Desmopressin Acetate) 0.1 Mg Tab 0.1 MG PO D, #180 Docusate Sodium (Docusate Sodium) 100 Mg Cap 100 MG PO BID, CAP Hydrocortisone (Cortef) 10 Mg Tab 15 MG PO QAM, TAB Hydrocortisone (Cortef) 10 Mg Tab 5 MG PO UD, TAB TAKE HALF A TABET (5 MG) 8 HOURS AFTER MORNING DOSE Lactic Acid (Ammonium Lactate) (Ammonium Lactate) 12 % Lot 1 APPLN TOP UD Latanoprost (Latanoprost) 37 Drops/2.5 Ml Soln 1 DROP OPB HS Levothyroxine Sodium (Levothyroxine Sodium) 125 Mcg Tab 125 MCG PO DAILY Menthol (Topical Analgesic) (Biofreeze) Unknown Strength Gel 1 APPLN TOP UD PRN for Pain APPLY PER PACKAGE DIRECTIONS Multivitamin (Multivitamin) Tab 1 TAB PO DAILY, TAB Nystatin (Topical) (Nystatin) 1 Pow Pow 1 APPLN TOP UD Omeprazole (Prilosec) 20 Mg Cap 20 MG PO DAILY, CAP Polyethylene Glycol-Propylene (Systane Ultra) 1 Leslie Leslie 1 DROP OP Q4-6 HRS, ML Potassium Chloride Microencaps (Potassium Chloride Er) 20 Meq Tab 20 MEQ PO DAILY Probiotic Product (Align) 4 Mg Cap 1 CAP PO DAILY Saline ([place] Nasal [place]) 0.65 % Spr 1 SPRAY N/A UD PRN for Nasal Congestion Sodium Fluoride (Dental) (Sf 5000 Plus) 1.1 % Cre 1 APPLN TOP BID, #102 Discontinued Medications: Aspirin (Aspirin Ec) 81 Mg Tab 81 MG PO DAILY Cefuroxime Axetil (Cefuroxime Axetil) 500 Mg Tab 500 MG PO BID, #14 Insulin Glargine (Basaglar Kwikpen) 100 Unit/Ml Inj 13 UNITS SC HS Discharge Exam Physical Exam: General Appearance: no apparent distress Eyes: EOMI ENT: hearing grossly normal Neck: trachea midline Respiratory/Chest: no respiratory distress, no accessory muscle use Extremities: normal inspection, no calf tenderness, no pedal edema Neurologic/Psychiatric: foot tender II-XII nml as tested, alert, normal mood/affect (baseline for pt) Skin: normal color, warm/dry Hospital Course Metabolic/Septic encephalopathy in setting acute cholangitis and CBD stones treated with ERCP and multiple IV antibiotics. tolerating low fat diet well to cover UTI and biliary --> levaquin; metronidazole for biliary as well. appears table for discharge - Rx for 10 days abx but made clear to pt/family that true duration of abx will be more contingent on surgery f/u and timing of cholecystectomy multifactorial encephalopathy but biliary sepsis/hospitalization being biggest factors, UTI may play a small role -safe for home on PO abx -for surgery follow up re timing of choley in ~1 week *of note -- listed as "allergic" to cipro but under supervision in the inpatient setting she was able to tolerate levaquin with no problems mild leukocytosis -and immature cells --> appearing most likely reactive to situation. 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 Continue Synthroid DDAVP as above outpt endocrine follow up and management Type II DM sugars have been good control with almost no insulin -- will have home insulin on hold for now, to check BID sugars and d/w endocrine if seeing any >200 in regards to restarting insulin DVT proph heparin SQ dispo - home, PO abx, home health, ongoing home care and supervision, close PCP and surgery f/u Total Time Spent: Greater than 30 minutes This includes examination of the patient, discharge planning, medication reconciliation, and communication with other providers. Discharge Instructions Please refer to the electronic Patient Visit Report (Discharge Instructions) for additional information. Follow-Up surgery next week, PCP next week labs tomorrow (BMP) and 10/22 (CBC, CMP) -- ongoing management of hypopituitarism by endocrine after discharge, f/u on CBC w immature cells but appearing by far most likely reactive to situation Additional Copies To Dank Carrillo M.D.; Kendrick Fung M.D.; Grover Carter MD
[2016-10-18 15:01] VITALS: BP 111/78; PULSE 83; TEMP 36.6; O2SAT 95
[2016-10-18 15:46] VITALS: BP 111/78; PULSE 83; TEMP 36.6; O2SAT 95
[2017-03-05] MEDS ORDERED: SYN100 PO (11:26)
== END 2016-10-18 18:00 | disposition home health service (06) | DRG 871 ==
LOC: EDBD 20:52 → C.EDB 20:55 → C.2T 10-09 01:01 → ENRESERV 10-09 01:10 → C.MSN 10-10 09:53
PROVIDERS: ADMIT Internal Medicine; ATTEND Family Medicine
PROC: 0FC94ZZ Extirpation of Matter from Common Bile Duct, Percutaneous Endoscopic Approach (ICD-10-PCS; principal; 2016-10-09 13:15)
PROC: 0F794DZ Dilation of Common Bile Duct with Intraluminal Device, Percutaneous Endoscopic Approach (ICD-10-PCS; principal; 2016-10-09 13:15)
DX: A41.9 Sepsis, unspecified organism (principal); G93.41 Metabolic encephalopathy; K80.43 Calculus of bile duct with acute cholecystitis with obstruction; N39.0 Urinary tract infection, site not specified; E23.0 Hypopituitarism; E87.0 Hyperosmolality and hypernatremia; E23.2 Diabetes insipidus; N13.30 Unspecified hydronephrosis; F32.9 Major depressive disorder, single episode, unspecified; K21.9 Gastro-esophageal reflux disease without esophagitis; H40.9 Unspecified glaucoma; E78.5 Hyperlipidemia, unspecified; I25.2 Old myocardial infarction; I48.91 Unspecified atrial fibrillation; I10 Essential (primary) hypertension; Z79.82 Long term (current) use of aspirin; B96.5 Pseudomonas (aeruginosa) (mallei) (pseudomallei) as the cause of diseases classified elsewhere; E87.6 Hypokalemia; E83.39 Other disorders of phosphorus metabolism; E55.9 Vitamin D deficiency, unspecified

== ENCOUNTER → 2016-10-08 | Outpatient (CLI) | payer OTHER, BC | END | disposition home or self-care (01) | LOC: C.LABPVFM 14:49 | PROVIDERS: ATTEND Internal Medicine Endocrinology, Diabetes & Metabolism | DX: I10 Essential (primary) hypertension (principal); E23.0 Hypopituitarism ==

== ENCOUNTER → 2016-10-25 | Outpatient (CLI) | payer OTHER, BC ==
[~2016-10-25] MED LIST changes: +DESM0.1T8 PO; -DESM1TAB16 PO; +GLIM1TAB2 PO; +HYG/25 PO; -INSU100I23 SC; +LEVO125T4 PO; -LEVO125T5 PO; +LVQ500 PO; +LVQ750 PO; +MTR500 PO; +SODI1.1C4 TOP
[2016-10-25 18:12] LABS: HEMATOCRIT 38.7 % (37-47); MEAN CELL VOLUME 93.9 fL (80-100); MEAN CORPUSCULAR HEMOGLOBIN 30.8 pg (25-34); MEAN CORPUSCULAR HGB CONC 32.8 g/dl (32-36); MEAN PLATELET VOLUME 12.2 fL (7.4-10.4); PLATELET COUNT 277 K/uL (130-400); RED BLOOD COUNT 4.12 M/uL (4.2-5.4); WHITE BLOOD COUNT 14.84 K/uL (4.8-10.8)
[2016-10-25 18:32] LABS: ALB/GLOB RATIO 0.7 (0.9-2); ALKALINE PHOSPHATASE 147 U/L (45-117); ALT/SGPT 44 U/L (12-78); AST/SGOT 32 U/L (15-37); BLOOD UREA NITROGEN 19 mg/dl (7-18); BUN/CREATININE RATIO 12.9 (10-20); CALCIUM 9.3 mg/dl (8.5-10.1); CARBON DIOXIDE 27 mmol/L (21-32); CHLORIDE 102 mmol/L (98-107); GLUCOSE 164 mg/dl (70-99); POTASSIUM 3.6 mmol/L (3.5-5.1); SODIUM 136 mmol/L (136-145)
[2016-10-25 18:40] LABS: BASO ABS # 0.13 K/uL (0-0.2); BASOPHIL % 0.9 %; COMPLETE YES; ECHINOCYTES 1+; EOSINOPHIL % 0.9 %; LYMPH ABS # 1.42 K/uL (1.2-3.4); LYMPHOCYTE % 9.6 %; TOXIC GRANULATION 1+
== END | disposition home or self-care (01) ==
LOC: C.LABPVFM 11:02
PROVIDERS: ATTEND Nurse Practitioner Family
DX: K80.21 Calculus of gallbladder without cholecystitis with obstruction (principal)

== ENCOUNTER 2016-10-29 12:38 | Emergency (ER) | payer OTHER, BC ==
[~2016-10-29] VITALS: Ht 157.5 cm; Wt 77.0 kg
[~2016-10-29 12:38] MED LIST changes: -GLIM1TAB2 PO; -LVQ750 PO
[2016-10-29 12:42] VITALS: Ht 157.5 cm; Wt 77.0 kg
[2016-10-29 13:37] LABS: BASO % 0.2 %; BASO ABS # 0.03 K/uL (0-0.2); COMPLETE YES; EOS % 0.1 %; HEMATOCRIT 37.4 % (37-47); LYMPH % 7.2 %; MEAN CELL VOLUME 92.3 fL (80-100); MEAN CORPUSCULAR HEMOGLOBIN 30.6 pg (25-34); MEAN CORPUSCULAR HGB CONC 33.2 g/dl (32-36); MEAN PLATELET VOLUME 10.9 fL (7.4-10.4); MONO % 6.4 %; NEUT % 85.1 %; PLATELET COUNT 250 K/uL (130-400); RED BLOOD COUNT 4.05 M/uL (4.2-5.4); WHITE BLOOD COUNT 15.21 K/uL (4.8-10.8)
[2016-10-29] MEDS ORDERED: SODIUM CHLORIDE 0.9% 500ML 500 ML IV STA (13:44)
[2016-10-29 13:52] LABS: BUN/CREATININE RATIO 15.5 (10-20); CALCIUM 9.1 mg/dl (8.5-10.1); CREATININE 1.3 mg/dl (0.60-1.20); POTASSIUM 3.6 mmol/L (3.5-5.1)
[2016-10-29 13:55] LABS: ALB/GLOB RATIO 0.7 (0.9-2)
[2016-10-29 14:38] LABS: URINE APPEARANCE CLEAR (CLEAR); URINE BILIRUBIN NEG (NEG); URINE COLOR YELLOW; URINE NITRITE NEG (NEG); URINE SPECIFIC GRAVITY 1.015 (1.000-1.030); UROBILINOGEN NEG (NEG); ZZUR CULT IF INDIC CLEAN CATCH NO
[2016-10-29 14:44] LABS: MANUAL MICROSCOPIC REQUIRED? NO; REVIEW REQ? NO
--- NOTE | 2016-10-29 15:50 | EMERGENCY ROOM VISIT NOTE ---
History Report prepared by Eliezer: Sierra Braun Under the Supervision of: Dr. Freddy Villanueva D.O. First contact with patient: 13:39 Chief Complaint: ABNORMAL LABS Stated Complaint: KIDNEY FUNCTION BLOOD TEST RESULT SENT BY History of Present Illness The patient is a 81 year old female who presents to the Emergency Room with complaints of abnormal labs occurring 4 days ago. She had a kidney function test and was referred to the Emergency Room for concerns about dehydration. She received the call today to come to the ER. As per , she recently finished 10 days antibiotic treatment for a gallbladder infection and urinary tract infection. Her PCP requested a urine test to be performed in the Emergency Room. She currently denies any pain. She denies fevers, chills, or any other complaints. Source of History: patient, spouse/significant other Onset: 4 days ago Position: other (global) Symptom Intensity: No pain Quality: other (abnormal labs) Associated Symptoms: No fevers, No chills Review of Systems See HPI for pertinent positives & negatives. A total of 10 systems reviewed and were otherwise negative. 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 (15) Sepsis (16) Ureterolithiasis (17) UTI (urinary tract infection) Family History Bladder cancer MOTHER Breast cancer SISTER FH: kidney disease FHx: heart disease Skin cancer MOTHER Social History Smoking Status: Never Smoker Alcohol Use: none Drug Use: none Marital Status: Housing Status: lives with family Occupation Status: retired Current/Historical Medications Scheduled Alendronate Sodium (Alendronate Sodium), 70 MG PO WK Calcitriol (Calcitriol), 0.25 MCG PO DAILY Calcium Carbonate-Cholecalcife (Caltrate 600+D), 1 TAB PO DAILY Chlorthalidone (Hygroton), 12.5 MG PO DAILY Cholecalciferol (Vitamin D-3), 1,000 INTER.UNIT PO DAILY Desmopressin Acetate (Desmopressin Acetate), 0.1 MG PO D Docusate Sodium (Docusate Sodium), 100 MG PO BID Hydrocortisone (Cortef), 15 MG PO QAM Hydrocortisone (Cortef), 5 MG PO UD Lactic Acid (Ammonium Lactate) (Ammonium Lactate), 1 APPLN TOP UD Latanoprost (Latanoprost), 1 DROP OPB HS Levofloxacin (Levofloxacin), 500 MG PO DAILY@11 Levothyroxine Sodium (Levothyroxine Sodium), 125 MCG PO DAILY Metronidazole (Metronidazole), 500 MG PO TID Multivitamin (Multivitamin), 1 TAB PO DAILY Nystatin (Topical) (Nystatin), 1 APPLN TOP UD Omeprazole (Prilosec), 20 MG PO DAILY Polyethylene Glycol-Propylene (Systane Ultra), 1 DROP OP Q4-6 HRS Potassium Chloride Microencaps (Potassium Chloride Er), 20 MEQ PO DAILY Probiotic Product (Align), 1 CAP PO DAILY Sodium Fluoride (Dental) (Sf 5000 Plus), 1 APPLN TOP BID Scheduled PRN Acetaminophen (Tylenol), 650 MG PO Q6H PRN for Pain Menthol (Topical Analgesic) (Biofreeze), 1 APPLN TOP UD PRN for Pain Saline (Stanly Nasal [place]), 1 SPRAY N/A UD PRN for Nasal Congestion Allergies Coded Allergies: Amoxicillin (Verified Allergy, Intermediate, Swelling of Lips, 10/29/16) Ciprofloxacin (Verified Allergy, Intermediate, RASH, NAUSEA, 10/29/16) has tolerated levaquin without any notable problem (see September 2016 admission) Sulfa Antibiotics (Verified Allergy, Intermediate, RASH, 10/29/16) Biotin (Verified Allergy, Unknown, UNKN, 10/29/16) Cefepime (Verified Adverse Reaction, Severe, HALLUCINATIONS, 10/29/16) Diphenhydramine (Verified Adverse Reaction, Severe, HYPER INSOMNIA, ) Mirtazapine (Verified Adverse Reaction, Intermediate, altered mental status changes, 10/29/16) Nitrofurantoin (Verified Adverse Reaction, Intermediate, CHEST PAIN, CONFUSION, 10/29/16) Oxycodone (Verified Adverse Reaction, Mild, N/V, 10/29/16) Physical Exam Vital Signs Date Time Temp Pulse Resp B/P (MAP) Pulse Ox O2 Delivery O2 Flow Rate FiO2 10/29/16 15:12 77 20 118/77 96 Room Air 10/29/16 12:42 36.9 80 20 117/80 96 Room Air Physical Exam CONSTITUTIONAL/VITAL SIGNS: Reviewed / noted above. GENERAL: Non-toxic in appearance. INTEGUMENTARY: Warm, dry, and [place]. HEAD: Normocephalic. EYES: without scleral icterus or trauma. ENT/OROPHARYNX: clear and moist. LYMPHADENOPATHY/NECK: Is supple without lymphadenopathy or meningismus. RESPIRATORY: Lungs clear and equal. CARDIOVASCULAR: Regular rate and rhythm. GI/ABDOMEN: Soft and nontender. No organomegaly or pulsatile mass. No rebound or guarding. Normal bowel sounds. EXTREMITIES: Warm and well perfused. BACK: No CVA tenderness. NEUROLOGICAL: Intact without focal deficits. PSYCHIATRIC: normal affect. MUSCULOSKELETAL: Normally developed with good muscle tone. Medical Decision & Procedures Laboratory Results 10/29/16 13:25 Red Blood Count 4.05, Mean Corpuscular Volume 92.3, Mean Corpuscular Hemoglobin 30.6, Mean Corpuscular Hemoglobin Concent 33.2, Mean Platelet Volume 10.9, Neutrophils (%) (Auto) 85.1, Lymphocytes (%) (Auto) 7.2, Monocytes (%) (Auto) 6.4, Eosinophils (%) (Auto) 0.1, Basophils (%) (Auto) 0.2, Neutrophils # (Auto) 12.93, Lymphocytes # (Auto) 1.10, Monocytes # (Auto) 0.98, Eosinophils # (Auto) 0.02, Basophils # (Auto) 0.03 10/29/16 13:25 Test 10/29/16 13:25 10/29/16 14:00 White Blood Count 15.21 K/uL (4.8-10.8) Red Blood Count 4.05 M/uL (4.2-5.4) Hemoglobin 12.4 g/dL (12.0-16.0) Hematocrit 37.4 % (37-47) Mean Corpuscular Volume 92.3 fL (80-100) Mean Corpuscular Hemoglobin 30.6 pg (25-34) Mean Corpuscular Hemoglobin Concent 33.2 g/dl (32-36) Platelet Count 250 K/uL (130-400) Mean Platelet Volume 10.9 fL (7.4-10.4) Neutrophils (%) (Auto) 85.1 % Lymphocytes (%) (Auto) 7.2 % Monocytes (%) (Auto) 6.4 % Eosinophils (%) (Auto) 0.1 % Basophils (%) (Auto) 0.2 % Neutrophils # (Auto) 12.93 K/uL (1.4-6.5) Lymphocytes # (Auto) 1.10 K/uL (1.2-3.4) Monocytes # (Auto) 0.98 K/uL (0.11-0.59) Eosinophils # (Auto) 0.02 K/uL (0-0.5) Basophils # (Auto) 0.03 K/uL (0-0.2) RDW Standard Deviation 59.8 fL (36.4-46.3) RDW Coefficient of Variation 17.9 % (11.5-14.5) Immature Granulocyte % (Auto) 1.0 % Immature Granulocyte # (Auto) 0.15 K/uL (0.00-0.02) Anion Gap 8.0 mmol/L (3-11) Est Creatinine Clear Calc Drug Dose 33.2 ml/min Estimated GFR () 44.9 Estimated GFR (Non- 38.7 BUN/Creatinine Ratio 15.5 (10-20) Calcium Level 9.1 mg/dl (8.5-10.1) Total Bilirubin 0.4 mg/dl (0.2-1) Aspartate Amino Transf (AST/SGOT) 26 U/L (15-37) Alanine Aminotransferase (ALT/SGPT) 33 U/L (12-78) Alkaline Phosphatase 133 U/L (45-117) Total Protein 6.3 gm/dl (6.4-8.2) Albumin 2.6 gm/dl (3.4-5.0) Globulin 3.7 gm/dl (2.5-4.0) Albumin/Globulin Ratio 0.7 (0.9-2) Urine Color YELLOW Urine Appearance CLEAR (CLEAR) Urine pH 7.0 (4.5-7.5) Urine Specific [place] 1.015 (1.000-1.030) Urine Protein NEG (NEG) Urine Glucose (UA) NEG (NEG) Urine Ketones NEG (NEG) Urine Occult Blood NEG (NEG) Urine Nitrite NEG (NEG) Urine Bilirubin NEG (NEG) Urine Urobilinogen NEG (NEG) Urine Leukocyte Esterase SMALL (NEG) Urine WBC (Auto) 1-5 /hpf (0-5) Urine RBC (Auto) 0-4 /hpf (0-4) Urine Hyaline Casts (Auto) 1-5 /lpf (0-5) Urine Epithelial Cells (Auto) 10-20 /lpf (0-5) Urine Bacteria (Auto) NEG (NEG) Laboratory results as stated above per my review. Medications Administered Medications (Trade) Dose Ordered Sig/Natalee Route Start Time Stop Time Status Last Admin Dose Admin Sodium Chloride 500 ml @ 999 mls/hr Q31M STAT IV 10/29/16 13:44 10/29/16 14:14 DC 10/29/16 13:50 999 MLS/HR ED Course 1339: Previous medical records were reviewed. The patient was evaluated in room B02. A complete history and physical examination was performed. 1344: Sodium Chloride 500 ml @ 999 mls/hr IV 1551: On reevaluation, the patient is resting comfortably. I discussed the results and findings with the patient. She verbalized agreement of the treatment plan. She was discharged home. Medical Decision Medication Reconciliation: I attest that I have personally reviewed the patient' s current medication list. Blood pressure Screening: Patient was found to have normal blood pressure on screening and does not require follow-up. Differential includes acute coronary syndrome, myocardial infarction, CVA, TIA, anemia, infection, pneumonia, UTI, pyelonephritis, poor nutrition, dehydration, electrolyte disturbance,hypoglycemia. This is an 81-year-old female who presents to the ED with a chief complaint of abnormal labs. The patient had some laboratory studies 4 days ago and was told to come to the ER for her kidney function. Her labs at that time revealed a BUN of 19 and a creatinine of 1.5. The patient denies any symptoms. Her vital signs are normal. Her physical exam did not show any acute abnormality. White blood count was 15. BUN is 20 and creatinine is 1.3 today. Glucose was 2:15. Urine did not show infection. The patient just finished a course of antibiotics. The patient was given normal saline 5 mL IV. She is felt to be stable for discharge and outpatient follow-up. Impression Primary Impression: Dehydration Scribe Attestation The scribe's documentation has been prepared under my direction and personally reviewed by me in its entirety. I confirm that the note above accurately reflects all work, treatment, procedures, and medical decision making performed by me. Departure Information Dispostion Home / Self-Care Referrals Dank Carrillo M.D. (PCP) Forms HOME CARE DOCUMENTATION FORM, IMPORTANT VISIT INFORMATION, WORK / SCHOOL INSTRUCTIONS Patient Instructions My [facility] [place] Additional Instructions Increase daily fluid. Follow-up with your doctor for further care and evaluation in 1-2 days as needed. Return to the emergency department for worsening or new symptoms or any concerns. You have been examined and treated today on an emergency basis only. This is not a substitute for, or an effort to provide, complete comprehensive medical care. It is impossible to recognize and treat all injuries or illnesses in a single emergency department visit. It is therefore important that you follow up closely with your doctor. Call as soon as possible for an appointment.
[2016-10-29 16:05] VITALS: BP 122/81; PULSE 71; TEMP 36.9; O2SAT 96
== END 2016-10-29 16:06 | disposition home or self-care (01) ==
LOC: C.EDB 12:40
DX: E86.0 Dehydration (principal); E78.00 Pure hypercholesterolemia, unspecified; K21.9 Gastro-esophageal reflux disease without esophagitis; G93.41 Metabolic encephalopathy; F32.9 Major depressive disorder, single episode, unspecified; I25.2 Old myocardial infarction; Z87.440 Personal history of urinary (tract) infections; Z79.899 Other long term (current) drug therapy; Z88.1 Allergy status to other antibiotic agents; Z88.2 Allergy status to sulfonamides; Z88.5 Allergy status to narcotic agent; Z88.8 Allergy status to other drugs, medicaments and biological substances; Z83.79 Family history of other diseases of the digestive system; Z84.1 Family history of disorders of kidney and ureter; Z82.49 Family history of ischemic heart disease and other diseases of the circulatory system; Z80.3 Family history of malignant neoplasm of breast

== ENCOUNTER 2016-11-06 01:23 | Inpatient (IN) | payer OTHER, BC ==
[~2016-11-06] VITALS: Ht 160 cm; Wt 77.5 kg
[2016-11-06] MEDS ORDERED: ACETAMINOPHEN 500 MG TAB PO STA (01:38)
--- NOTE | 2016-11-06 01:41 | EMERGENCY ROOM VISIT NOTE ---
History Report prepared by Eliezer: Dimitri Garnica Under the Supervision of: Dr. Silvestre Pena M.D. First contact with patient: 01:32 Chief Complaint: ABDOMINAL PAIN Stated Complaint: PAIN IN RIGHT SIDE History of Present Illness The patient is a 81 year old female who presents to the Emergency Room with complaints of intermittent RUQ abdominal pain that began a couple of days ago. She rates her pain a 2/10 in severity when the pain is present. The patient was in the hospital last month for her gallbladder. She received a stent in her gallbladder at that time. She denies any vomiting, confusion, or fevers. She still has her gallbladder. They are planning on removing it in 3 months or so. Source of History: patient Onset: a couple of days ago Position: abdomen (RUQ) Symptom Intensity: 2/10 Quality: sharp Timing: intermittent Associated Symptoms: No fevers, No vomiting Note: She denies any confusion. Review of Systems See HPI for pertinent positives & negatives. A total of 10 systems reviewed and were otherwise negative. 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 (17) Sepsis (18) Ureterolithiasis (19) UTI (urinary tract infection) Family History Bladder cancer MOTHER Breast cancer SISTER FH: kidney disease FHx: heart disease Skin cancer MOTHER Social History Smoking Status: Former Smoker Alcohol Use: none Drug Use: none Marital Status: Housing Status: lives with family Occupation Status: retired Current/Historical Medications Scheduled Alendronate Sodium (Alendronate Sodium), 70 MG PO WK Calcitriol (Calcitriol), 0.25 MCG PO DAILY Calcium Carbonate-Cholecalcife (Caltrate 600+D), 1 TAB PO DAILY Chlorthalidone (Hygroton), 12.5 MG PO DAILY Cholecalciferol (Vitamin D-3), 1,000 INTER.UNIT PO DAILY Desmopressin Acetate (Desmopressin Acetate), 0.1 MG PO D Docusate Sodium (Docusate Sodium), 100 MG PO DAILY Glimepiride (Glimepiride), 1 MG PO DAILY Hydrocortisone (Cortef), 15 MG PO QAM Hydrocortisone (Cortef), 5 MG PO UD Lactic Acid (Ammonium Lactate) (Ammonium Lactate), 1 APPLN TOP UD Latanoprost (Latanoprost), 1 DROP OPB HS Levothyroxine Sodium (Levothyroxine Sodium), 125 MCG PO DAILY Multivitamin (Multivitamin), 1 TAB PO DAILY Omeprazole (Prilosec), 20 MG PO DAILY Polyethylene Glycol-Propylene (Systane Ultra), 1 DROP OP Q4-6 HRS Potassium Chloride Microencaps (Potassium Chloride Er), 20 MEQ PO DAILY Probiotic Product (Align), 1 CAP PO DAILY Sodium Fluoride (Dental) (Sf 5000 Plus), 1 APPLN TOP BID Scheduled PRN Acetaminophen (Tylenol), 650 MG PO Q6H PRN for Pain Menthol (Topical Analgesic) (Biofreeze), 1 APPLN TOP UD PRN for Pain Allergies Coded Allergies: Amoxicillin (Verified Allergy, Intermediate, Swelling of Lips, 11/06/16) Ciprofloxacin (Verified Allergy, Intermediate, RASH, NAUSEA, 11/06/16) has tolerated levaquin without any notable problem (see September 2016 admission) Sulfa Antibiotics (Verified Allergy, Intermediate, RASH, 11/06/16) Biotin (Verified Allergy, Unknown, UNKN, 11/06/16) Cefepime (Verified Adverse Reaction, Severe, HALLUCINATIONS, 11/06/16) Diphenhydramine (Verified Adverse Reaction, Severe, HYPER INSOMNIA, ) Mirtazapine (Verified Adverse Reaction, Intermediate, altered mental status changes, 11/06/16) Nitrofurantoin (Verified Adverse Reaction, Intermediate, CHEST PAIN, CONFUSION, 11/06/16) Oxycodone (Verified Adverse Reaction, Mild, N/V, 11/06/16) Physical Exam Vital Signs Date Time Temp Pulse Resp B/P (MAP) Pulse Ox O2 Delivery O2 Flow Rate FiO2 11/06/16 04:31 137/79 11/06/16 04:13 87 18 95 11/06/16 04:01 125/67 11/06/16 03:43 87 17 97 11/06/16 03:32 115/77 11/06/16 03:13 84 38 98 11/06/16 03:09 82 18 141/91 98 Room Air 11/06/16 03:01 141/91 11/06/16 02:13 96 18 97 11/06/16 02:08 89 26 97 11/06/16 01:53 90 20 96 11/06/16 01:52 90 11/06/16 01:42 128/84 11/06/16 01:27 36.8 91 20 120/75 93 Room Air Physical Exam GENERAL: Patient is elderly and mildly dehydrated appearing and in minimal acute distress. HEENT: No acute trauma, normocephalic atraumatic, mucous membranes moist, no nasal congestion, no scleral icterus. NECK: No stridor, no adenopathy, no meningismus, trachea is midline. LUNGS: No dyspnea. Clear to auscultation and equal bilaterally. No wheeze, no rhonchi. HEART: Regular rate and rhythm. No murmurs, rubs, gallops appreciated. ABDOMEN: Soft, mild to moderate tenderness to palpation in the RUQ, bowel sounds positive, no masses appreciated, no peritonitis. BACK: No midline tenderness, no CVA tenderness EXTREMITIES: Normal motion all extremities, no cyanosis, no edema. NEUROLOGIC: Alert and oriented, no acute motor or sensory deficits, no focal weakness, cranial nerves grossly intact. SKIN: No rash, no jaundice, no diaphoresis. Medical Decision & Procedures ER Provider Diagnostic Interpretation: Radiology results and stated below per my review and radiologist interpretation: US RUQ: Comparison: 10/08/2016 Cholelithiasis, sludge and gallbladder wall thickening measuring 3.7 mm. Negative sonographic [place] sign. Recommend clinical correlation for acute cholecystitis. HIDA scan could be used for further evaluation if indicated. Common duct within normal limits, 5 mm, previously 4 mm. Right midpole renal cyst measures up to 1.2 cm, previously 1.6 cm. Septation not visible on this study. As before, there is severe thinning of the right renal cortex. No hydronephrosis. The liver appears unremarkable. Radiologist: Bennie Bryant MD Laboratory Results 11/06/16 02:13 Red Blood Count 3.92, Mean Corpuscular Volume 92.1, Mean Corpuscular Hemoglobin 31.9, Mean Corpuscular Hemoglobin Concent 34.6, Mean Platelet Volume 10.7, Neutrophils (%) (Auto) 73.5, Lymphocytes (%) (Auto) 15.4, Monocytes (%) (Auto) 8.2, Eosinophils (%) (Auto) 1.0, Basophils (%) (Auto) 0.2, Neutrophils # (Auto) 10.50, Lymphocytes # (Auto) 2.21, Monocytes # (Auto) 1.18, Eosinophils # (Auto) 0.15, Basophils # (Auto) 0.03 11/06/16 02:13 Test 11/06/16 02:13 11/06/16 03:00 White Blood Count 14.32 K/uL (4.8-10.8) Red Blood Count 3.92 M/uL (4.2-5.4) Hemoglobin 12.5 g/dL (12.0-16.0) Hematocrit 36.1 % (37-47) Mean Corpuscular Volume 92.1 fL (80-100) Mean Corpuscular Hemoglobin 31.9 pg (25-34) Mean Corpuscular Hemoglobin Concent 34.6 g/dl (32-36) Platelet Count 217 K/uL (130-400) Mean Platelet Volume 10.7 fL (7.4-10.4) Neutrophils (%) (Auto) 73.5 % Lymphocytes (%) (Auto) 15.4 % Monocytes (%) (Auto) 8.2 % Eosinophils (%) (Auto) 1.0 % Basophils (%) (Auto) 0.2 % Neutrophils # (Auto) 10.50 K/uL (1.4-6.5) Lymphocytes # (Auto) 2.21 K/uL (1.2-3.4) Monocytes # (Auto) 1.18 K/uL (0.11-0.59) Eosinophils # (Auto) 0.15 K/uL (0-0.5) Basophils # (Auto) 0.03 K/uL (0-0.2) RDW Standard Deviation 57.4 fL (36.4-46.3) RDW Coefficient of Variation 17.3 % (11.5-14.5) Immature Granulocyte % (Auto) 1.7 % Immature Granulocyte # (Auto) 0.25 K/uL (0.00-0.02) Nucleated RBC Absolute Count (auto) 0.03 K/uL (0-0) Nucleated Red Blood Cells % 0.2 % Anion Gap 8.0 mmol/L (3-11) Est Creatinine Clear Calc Drug Dose 45.1 ml/min Estimated GFR () 63.1 Estimated GFR (Non- 54.5 BUN/Creatinine Ratio 24.8 (10-20) Calcium Level 8.9 mg/dl (8.5-10.1) Total Bilirubin 0.4 mg/dl (0.2-1) Direct Bilirubin 0.2 mg/dl (0-0.2) Aspartate Amino Transf (AST/SGOT) 33 U/L (15-37) Alanine Aminotransferase (ALT/SGPT) 43 U/L (12-78) Alkaline Phosphatase 131 U/L (45-117) Troponin I < 0.015 ng/ml (0-0.045) Total Protein 6.6 gm/dl (6.4-8.2) Albumin 2.5 gm/dl (3.4-5.0) Lipase 108 U/L (73-393) Urine Color YELLOW Urine Appearance CLEAR (CLEAR) Urine pH 7.5 (4.5-7.5) Urine Specific [place] 1.019 (1.000-1.030) Urine Protein NEG (NEG) Urine Glucose (UA) NEG (NEG) Urine Ketones NEG (NEG) Urine Occult Blood NEG (NEG) Urine Nitrite NEG (NEG) Urine Bilirubin NEG (NEG) Urine Urobilinogen NEG (NEG) Urine Leukocyte Esterase SMALL (NEG) Urine WBC (Auto) 5-10 /hpf (0-5) Urine RBC (Auto) 0-4 /hpf (0-4) Urine Hyaline Casts (Auto) 1-5 /lpf (0-5) Urine Epithelial Cells (Auto) 10-20 /lpf (0-5) Urine Bacteria (Auto) NEG (NEG) Laboratory results as reviewed by me. Medications Administered Medications (Trade) Dose Ordered Sig/Natalee Route Start Time Stop Time Status Last Admin Dose Admin Sodium Chloride 500 ml @ 999 mls/hr Q31M STAT IV 11/06/16 03:33 11/06/16 04:03 DC 11/06/16 03:33 999 MLS/HR Levofloxacin (Levaquin / D5W) 750 mg NOW STAT IV 11/06/16 04:47 11/06/16 04:48 DC 11/06/16 05:27 750 MG ECG Indication: abdominal pain Rate (beats per minute): 90 Rhythm: sinus rhythm Findings: 1st degree AV block, PAC, no acute ischemic change ED Course 0132: The patient was evaluated in room A2. A complete history and physical exam was performed. 0138: Ordered Tylenol Tab 500 mg PO 0333: Ordered Sodium Chloride 500 ml @ 999 mls/hr IV 0335: The patient is feeling better. I will be paging [facility] for possible inpatient treatment. 0337: Upon reevaluation, the patient is resting. Discussed results and treatment plan with the patient. She verbalized understanding and agreement with the treatment plan. The patient will be evaluated by Dr. Shanice BALDWIN, for further management. Medical Decision Differential: Cholecystitis, Gallbladder disfunction, Hepatic Disfunction, Gastritis/PUD, Renal Colic, Pancreatitis, ACS, Aortic Pathology, amongst other pathologies entertained. Medication Reconciliation: I attest that I have personally reviewed the patient 's current medication list. Blood pressure screening: Patient was found to have normal blood pressure on screening and does not require follow-up. 81 yr female with recent admission for sepsis secondary to cholangitis, stented and discharged on Levaquin doing well until 2 days ago and began having increasing RUQ abdo pain. Not septic currently though does have bumped WBC. Afebrile and BP/HR OK. US reveals thickened GB wall consistent with cholecystitis. With her recent sepsis admission, now off abx, and increasing pain I feel treating as Cholecystitis is required. Given IV levaquin as this previously was tolerated and she has multiple other medication allergies. Consults Time Called: [phone] Consulting Physician: Dr. Shanice BALDWIN Returned Call: [phone] He will be evaluating the patient for further management and care. Impression Primary Impression: Acute cholecystitis Scribe Attestation The scribe's documentation has been prepared under my direction and personally reviewed by me in its entirety. I confirm that the note above accurately reflects all work, treatment, procedures, and medical decision making performed by me. Departure Information Dispostion Being Evaluated By Hospitalist Referrals Dank Carrillo M.D. (PCP) Patient Instructions My [facility]
[2016-11-06 02:23] LABS: BASO % 0.2 %; BASO ABS # 0.03 K/uL (0-0.2); COMPLETE YES; HEMATOCRIT 36.1 % (37-47); IG% 1.7 %; LYMPH % 15.4 %; LYMPH ABS # 2.21 K/uL (1.2-3.4); MEAN CELL VOLUME 92.1 fL (80-100); MEAN CORPUSCULAR HEMOGLOBIN 31.9 pg (25-34); MEAN CORPUSCULAR HGB CONC 34.6 g/dl (32-36); MEAN PLATELET VOLUME 10.7 fL (7.4-10.4); MONO % 8.2 %; NEUT % 73.5 %; PLATELET COUNT 217 K/uL (130-400); RED BLOOD COUNT 3.92 M/uL (4.2-5.4); WHITE BLOOD COUNT 14.32 K/uL (4.8-10.8)
[2016-11-06 02:40] LABS: ALT/SGPT 43 U/L (12-78); AST/SGOT 33 U/L (15-37); BLOOD UREA NITROGEN 24 mg/dl (7-18); BUN/CREATININE RATIO 24.8 (10-20); CALCIUM 8.9 mg/dl (8.5-10.1); CARBON DIOXIDE 27 mmol/L (21-32); CHLORIDE 104 mmol/L (98-107); CREATININE 0.98 mg/dl (0.60-1.20); GLUCOSE 85 mg/dl (70-99); POTASSIUM 3.6 mmol/L (3.5-5.1); SODIUM 139 mmol/L (136-145)
[2016-11-06 02:45] LABS: ALKALINE PHOSPHATASE 131 U/L (45-117)
[2016-11-06] MEDS ORDERED: GLIM1TAB2 PO (02:45)
[2016-11-06 03:12] LABS: URINE APPEARANCE CLEAR (CLEAR); URINE BILIRUBIN NEG (NEG); URINE COLOR YELLOW; URINE NITRITE NEG (NEG); URINE PH 7.5 (4.5-7.5); URINE SPECIFIC GRAVITY 1.019 (1.000-1.030); UROBILINOGEN NEG (NEG); ZZUR CULT IF INDIC CLEAN CATCH NO
[2016-11-06 03:14] LABS: MANUAL MICROSCOPIC REQUIRED? NO; REVIEW REQ? NO
[2016-11-06] MEDS ORDERED: SODIUM CHLORIDE 0.9% 500ML 500 ML IV STA (03:33)
--- NOTE | 2016-11-06 04:24 | History and Physical ---
History & Physical Date & Time of Service: Nov 06, 2016 at 04:21 Chief Complaint: Pain In Right Side Primary Care Physician: Dank Carrillo M.D. History of Present Illness Mrs Valencia is an 81 year old female recently admitted in September for metabolic/Septic encephalopathy in setting acute cholangitis and CBD stones treated with ERCP and multiple IV antibiotics who presents to the ER with recurrence of her RUQ pain for the past 2-3 days. She followed up with surgery as an outpatient and plan was to remove the gall bladder once everything had settled down in around 3 months time. She has been having intermittent RUQ abdominal pain in the evening for the past 2-3 nights. Severity 9/10 at worse it woke her up around 12 :27am. She does not feel it is related to any particular food. She denies any alcohol use. She finished the course of Levaquin and metronidazole for cholangitis last week. 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 Type 2 DM Nephrolithiasis Recurrent UTI Family History Bladder cancer MOTHER Breast cancer SISTER FH: kidney disease FHx: heart disease Skin cancer MOTHER Social History Smoking Status: Former Smoker Drug Use: none Marital Status: Housing status: lives with family Occupational Status: retired Immunizations History of Influenza Vaccine: No Influenza Vaccine Date: Feb 04, 2010 History of Tetanus Vaccine?: No History of Pneumococcal: YES- IN 2008 History of Hepatitis B Vaccine: No Multi-Drug Resistant Organisms History of MDRO: No Allergies Coded Allergies: Amoxicillin (Verified Allergy, Intermediate, Swelling of Lips, 11/06/16) Ciprofloxacin (Verified Allergy, Intermediate, RASH, NAUSEA, 11/06/16) has tolerated levaquin without any notable problem (see September 2016 admission) Sulfa Antibiotics (Verified Allergy, Intermediate, RASH, 11/06/16) Biotin (Verified Allergy, Unknown, UNKN, 11/06/16) Cefepime (Verified Adverse Reaction, Severe, HALLUCINATIONS, 11/06/16) Diphenhydramine (Verified Adverse Reaction, Severe, HYPER INSOMNIA, ) Mirtazapine (Verified Adverse Reaction, Intermediate, altered mental status changes, 11/06/16) Nitrofurantoin (Verified Adverse Reaction, Intermediate, CHEST PAIN, CONFUSION, 11/06/16) Oxycodone (Verified Adverse Reaction, Mild, N/V, 11/06/16) Home Medications Scheduled Alendronate Sodium (Alendronate Sodium), 70 MG PO WK Calcitriol (Calcitriol), 0.25 MCG PO DAILY Calcium Carbonate-Cholecalcife (Caltrate 600+D), 1 TAB PO DAILY Chlorthalidone (Hygroton), 12.5 MG PO DAILY Cholecalciferol (Vitamin D-3), 1,000 INTER.UNIT PO DAILY Desmopressin Acetate (Desmopressin Acetate), 0.1 MG PO D Docusate Sodium (Docusate Sodium), 100 MG PO DAILY Glimepiride (Glimepiride), 1 MG PO DAILY Hydrocortisone (Cortef), 15 MG PO QAM Hydrocortisone (Cortef), 5 MG PO UD Lactic Acid (Ammonium Lactate) (Ammonium Lactate), 1 APPLN TOP UD Latanoprost (Latanoprost), 1 DROP OPB HS Levothyroxine Sodium (Levothyroxine Sodium), 125 MCG PO DAILY Multivitamin (Multivitamin), 1 TAB PO DAILY Omeprazole (Prilosec), 20 MG PO DAILY Polyethylene Glycol-Propylene (Systane Ultra), 1 DROP OP Q4-6 HRS Potassium Chloride Microencaps (Potassium Chloride Er), 20 MEQ PO DAILY Probiotic Product (Align), 1 CAP PO DAILY Sodium Fluoride (Dental) (Sf 5000 Plus), 1 APPLN TOP BID Scheduled PRN Acetaminophen (Tylenol), 650 MG PO Q6H PRN for Pain Menthol (Topical Analgesic) (Biofreeze), 1 APPLN TOP UD PRN for Pain Review of Systems Constitutional: No fever, No chills Eyes: No worsening of vision ENT: No hearing loss Respiratory: No cough, No sputum, No wheezing, No shortness of breath Cardiovascular: No chest pain, No edema Abdomen: + pain, No nausea, No vomiting, No diarrhea, No constipation, No GI bleeding Musculoskeletal: No joint pain, No muscle pain Genitourinary - Female: No dysuria, No urinary frequency, No urinary urgency, No urinary incontinence, No urinary retention Integumentary: No rash, No itch Physical Exam Vital Signs Date Time Temp Pulse Resp B/P (MAP) Pulse Ox O2 Delivery O2 Flow Rate FiO2 11/06/16 03:09 82 18 141/91 98 Room Air 11/06/16 02:08 89 26 97 11/06/16 01:53 90 20 96 11/06/16 01:52 90 11/06/16 01:42 128/84 11/06/16 01:27 36.8 91 20 120/75 93 Room Air General Appearance: WD/WN, no apparent distress, + pertinent finding (tired and fell asleep throughout H&P) Head: normocephalic, atraumatic Eyes: normal inspection (pupils equal) Neck: supple, no JVD Respiratory/Chest: chest non-tender, lungs clear, normal breath sounds, no respiratory distress, no accessory muscle use Cardiovascular: regular rate, rhythm, no edema, no murmur, normal peripheral pulses Abdomen/GI: normal bowel sounds, non tender, soft, + pertinent finding (Lujan' s sign negative) Back: no CVA tenderness Extremities/Musculoskelatal: normal capillary refill, no pedal edema Neurologic/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: 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 (no facial droop), no motor/sensory deficits (grossly moving all 4 limbs equally), alert (but falling asleep easily) , oriented x 3 Skin: normal color, warm/dry, no rash Diagnostics Laboratory Results Results Past 24 Hours Test 11/06/16 02:13 11/06/16 03:00 Range/Units White Blood Count 14.32 4.8-10.8 K/uL Red Blood Count 3.92 4.2-5.4 M/uL Hemoglobin 12.5 12.0-16.0 g/dL Hematocrit 36.1 37-47 % Mean Corpuscular Volume 92.1 80-100 fL Mean Corpuscular Hemoglobin 31.9 25-34 pg Mean Corpuscular Hemoglobin Concent 34.6 32-36 g/dl Platelet Count 217 130-400 K/uL Mean Platelet Volume 10.7 7.4-10.4 fL Neutrophils (%) (Auto) 73.5 % Lymphocytes (%) (Auto) 15.4 % Monocytes (%) (Auto) 8.2 % Eosinophils (%) (Auto) 1.0 % Basophils (%) (Auto) 0.2 % Neutrophils # (Auto) 10.50 1.4-6.5 K/uL Lymphocytes # (Auto) 2.21 1.2-3.4 K/uL Monocytes # (Auto) 1.18 0.11-0.59 K/uL Eosinophils # (Auto) 0.15 0-0.5 K/uL Basophils # (Auto) 0.03 0-0.2 K/uL RDW Standard Deviation 57.4 36.4-46.3 fL RDW Coefficient of Variation 17.3 11.5-14.5 % Immature Granulocyte % (Auto) 1.7 % Immature Granulocyte # (Auto) 0.25 0.00-0.02 K/uL Nucleated RBC Absolute Count (auto) 0.03 0-0 K/uL Nucleated Red Blood Cells % 0.2 % Sodium Level 139 136-145 mmol/L Potassium Level 3.6 3.5-5.1 mmol/L Chloride Level 104 98-107 mmol/L Carbon Dioxide Level 27 21-32 mmol/L Anion Gap 8.0 3-11 mmol/L Blood Urea Nitrogen 24 7-18 mg/dl Creatinine 0.98 0.60-1.20 mg/dl Est Creatinine Clear Calc Drug Dose 45.1 ml/min Estimated GFR () 63.1 Estimated GFR (Non- 54.5 BUN/Creatinine Ratio 24.8 10-20 Random Glucose 85 70-99 mg/dl Calcium Level 8.9 8.5-10.1 mg/dl Total Bilirubin 0.4 0.2-1 mg/dl Direct Bilirubin 0.2 0-0.2 mg/dl Aspartate Amino Transf (AST/SGOT) 33 15-37 U/L Alanine Aminotransferase (ALT/SGPT) 43 12-78 U/L Alkaline Phosphatase 131 45-117 U/L Troponin I < 0.015 0-0.045 ng/ml Total Protein 6.6 6.4-8.2 gm/dl Albumin 2.5 3.4-5.0 gm/dl Lipase 108 73-393 U/L Urine Color YELLOW Urine Appearance CLEAR CLEAR Urine pH 7.5 4.5-7.5 Urine Specific [place] 1.019 1.000-1.030 Urine Protein NEG NEG Urine Glucose (UA) NEG NEG Urine Ketones NEG NEG Urine Occult Blood NEG NEG Urine Nitrite NEG NEG Urine Bilirubin NEG NEG Urine Urobilinogen NEG NEG Urine Leukocyte Esterase SMALL NEG Urine WBC (Auto) 5-10 0-5 /hpf Urine RBC (Auto) 0-4 0-4 /hpf Urine Hyaline Casts (Auto) 1-5 0-5 /lpf Urine Epithelial Cells (Auto) 10-20 0-5 /lpf Urine Bacteria (Auto) NEG NEG Diagnostic Radiology GALLBLADDER-ABD LIMITED CLINICAL HISTORY: 81 years-old Female presenting with increasing RUQ pain over last 24 hours. Recent cholangitis, status post stent placement in the common bile duct on 10/09/2016. TECHNIQUE: Real-time grayscale and limited color Doppler ultrasound imaging of the abdomen limited to the right upper quadrant was performed. COMPARISON: 10/08/2016. FINDINGS: Pancreas: Visualized portions of the pancreatic head and body normal. Liver: Grossly normal echogenicity allowing for limited acoustic window. The liver measures 12.9 cm in maximal sagittal dimension. Main portal vein patent with normal directional flow. Biliary: No intrahepatic biliary ductal dilatation. Common bile duct measures up to 4 mm in diameter, unchanged. Hyperechogenicity within the common duct could relate to the reported recently placed common bile duct stent Gallbladder: Minimal gallbladder wall thickening. Sludge and gallstones present. The gallbladder is not significantly distended. Sonographic Lujan's sign negative. Right kidney: Cortical thinning noted. A 1.1 cm simple appearing cyst noted. No hydronephrosis. Ascites: None. IMPRESSION: 1. Cholelithiasis and gallbladder sludge. No significant gallbladder distention or convincing evidence of cholecystitis. No biliary ductal dilatation. Notably, ultrasound may be normal in the setting of cholangitis, which is not excluded. 2. Cortical thinning of the right kidney could suggest chronic medical renal disease. Electronically signed by: Vu Turcios M.D. 11/06/2016 7:11 AM Dictated Date/Time: 11/06/2016 7:06 AM EKG Sinus rhythm with 1st degree AC block with PACs Q waves in III and AvF, TWI III Poor R wave progression No significant change from previous EKG 11/07/2016 Impression Assessment and Plan 81 year old female with recent history of septic cholangitis presents with reoccurrence of RUQ pain. No fevers however she was also apyrexial during her last admission. Bilirubin is normal and ALP continues to trend down from September. RUQ pain - suspect related to her cholelithiasis despite stent insertion + possible recurrence of cholangitis (elevated WBC) although her LFTs are reassuring - Cover for cholangitis with Levaquin and metronidazole (US negative for acute cholecystitis) - Consult surgery for evaluation for cholecystectomy, keep NPO except meds and hydrate with NSS Non acute medical conditions - Panhypopituitarism, Type 2 DM, Glaucoma - hold glimepiride and start insulin sliding scale for diabetes, continue all other chronic medications VTE Prophylaxis - deferred pending surgical consultation Code - Full as per patient wishes Disposition - observation status to med/surg, can be changed to admission pending clinical course Resident Physician Supervision Note: I was present with during the history and exam. I discussed the case with the resident and agree with the findings and plan as documented in the note. Any exceptions or clarifications are listed here: This is a retype of an addendum originally placed 11/05 which did not register due to a computer error 81 y/o F presented with increasing RUQ pain - recent admission for sepsis related to cholecystitis - had a biliary stent placed. She was scheduled for elective surgery in 3 weeks time however her symptoms are poorly controlled and there is some suspicion of disease progression on ultrasound. OE AAO x 2 - lethargic S1,2 R CATB + RUQ and generalized tenderness No CCE P: We will admit pt for symptomatic management - we will consult surgery as they may want to expedite the procedure Pt is stable - no sign of acute infection at time of admission Above discussed with family and pt at time of admission Documented By: Primo Prasad Level of Care Med/Surg Resuscitation Status FULL RESUSCITATION VTE Prophylaxis VTE Risk Assessment Done? Y/N: Yes Additional Copies To Dank Carrillo M.D. Resident Tracking Resident Involvement: Resident Care Provided Care Provided: Adult ED
[2016-11-06] MEDS ORDERED: LEVAQUIN 750MG / 150ML D5W IV STA (04:47)
[2016-11-06 06:25] VITALS: BP 134/84; PULSE 100; TEMP 36.6; O2SAT 98; BMI 30.3
--- NOTE | 2016-11-06 07:13 | DIAGNOSTIC IMAGING REPORT ---
GALLBLADDER-ABD LIMITED CLINICAL HISTORY: 81 years-old Female presenting with increasing RUQ pain over last 24 hours. Recent cholangitis, status post stent placement in the common bile duct on 10/09/2016. TECHNIQUE: Real-time grayscale and limited color Doppler ultrasound imaging of the abdomen limited to the right upper quadrant was performed. COMPARISON: 10/08/2016. FINDINGS: Pancreas: Visualized portions of the pancreatic head and body normal. Liver: Grossly normal echogenicity allowing for limited acoustic window. The liver measures 12.9 cm in maximal sagittal dimension. Main portal vein patent with normal directional flow. Biliary: No intrahepatic biliary ductal dilatation. Common bile duct measures up to 4 mm in diameter, unchanged. Hyperechogenicity within the common duct could relate to the reported recently placed common bile duct stent Gallbladder: Minimal gallbladder wall thickening. Sludge and gallstones present. The gallbladder is not significantly distended. Sonographic Lujan's sign negative. Right kidney: Cortical thinning noted. A 1.1 cm simple appearing cyst noted. No hydronephrosis. Ascites: None. IMPRESSION: 1. Cholelithiasis and gallbladder sludge. No significant gallbladder distention or convincing evidence of cholecystitis. No biliary ductal dilatation. Notably, ultrasound may be normal in the setting of cholangitis, which is not excluded. 2. Cortical thinning of the right kidney could suggest chronic medical renal disease. Electronically signed by: Vu Turcios M.D. 11/06/2016 7:11 AM Dictated Date/Time: 11/06/2016 7:06 AM
[2016-11-06 07:23] VITALS: BP 125/80; PULSE 90; TEMP 36.6; O2SAT 94
[2016-11-06] MEDS: SODIUM CHLORIDE 0.9% 1000ML 1,000 ML IV SCH ×2 (07:51→16:37)
[2016-11-06] MEDS: PANTOprazole SOD 40 MG TAB PO SCH (07:52)
[2016-11-06] MEDS: MULTIVITAMIN TAB PO SCH (07:53)
[2016-11-06] MEDS: POTASSIUM CHLORIDE 20 MEQ TABCR PO SCH (07:54)
[2016-11-06] MEDS: DOCUSATE SODIUM 100 MG CAP PO SCH (07:54)
[2016-11-06] MEDS: HYDROCORTISONE 10 MG TAB PO SCH ×2 (07:54→16:37)
[2016-11-06] MEDS: LEVOTHYROXINE 125 MCG TAB PO SCH (07:54)
[2016-11-06] MEDS: METRONIDAZOLE / NSS 500 MG in PREMIXED NSS 100 ML IV SCH ×2 (07:55→16:37)
[2016-11-06] MEDS ORDERED: IV FLUIDS COMPLETED PRN (08:15)
--- NOTE | 2016-11-06 11:01 | Surgery Consultation ---
Consultation Date of Consultation: Nov 06, 2016. Attending Physician: Primo Prasad M.D. History of Present Illness The patient is a 81 year old female who presents to the Emergency Room with complaints of intermittent RUQ abdominal pain that began a couple of days ago. She rates her pain a 2/10 in severity when the pain is present. The patient was in the hospital last month for her gallbladder. She received a stent in her gallbladder at that time. She denies any vomiting, confusion, or fevers. She still has her gallbladder. They are planning on removing it in 3 months or so. pt is still have some RUQ pain, with some nausea, no vomiting, pt denies fever, no diarrhea, no chills, pt had U/S study revealing acute cholecystitis with gallstones, pt and her request to do cholecystectomy. Past Medical/Surgical History Medical Problems: (1) Acute kidney injury Status: Acute (2) VERO (acute kidney injury) Status: Acute (3) Altered mental status Status: Acute (4) Altered mental status Status: Acute (5) Altered mental status Status: Acute (6) Altered mental status Status: Acute (7) Altered mental status Status: Acute (8) Ascending cholangitis Status: Acute (9) Atrial fibrillation Status: Acute (10) Dehydration Status: Acute (11) Dehydration Status: Acute (12) Dysarthria Status: Acute (13) Hearing voices Status: Acute (14) Hydronephrosis Status: Acute (15) Hydronephrosis Status: Acute (16) Kidney stone Status: Acute (17) Leukocytosis Status: Acute (18) Medication reaction Status: Acute (19) Nausea & vomiting Status: Acute (20) Pleural effusion Status: Acute (21) Right ureteral calculus Status: Acute (22) RUQ abdominal pain Status: Acute (23) Sepsis Status: Acute (24) Sepsis Status: Acute (25) Urinary tract infection Status: Acute Family History Bladder cancer MOTHER Breast cancer SISTER FH: kidney disease FHx: heart disease Skin cancer MOTHER Social History Smoking Status: Never Smoker Smokeless Tobacco Use: No Alcohol Use: none Drug Use: none Marital Status: Housing Status: lives with family Occupation Status: retired Allergies Coded Allergies: Amoxicillin (Verified Allergy, Intermediate, Swelling of Lips, 11/06/16) Ciprofloxacin (Verified Allergy, Intermediate, RASH, NAUSEA, 11/06/16) has tolerated levaquin without any notable problem (see September 2016 admission) Sulfa Antibiotics (Verified Allergy, Intermediate, RASH, 11/06/16) Biotin (Verified Allergy, Unknown, UNKN, 11/06/16) Cefepime (Verified Adverse Reaction, Severe, HALLUCINATIONS, 11/06/16) Diphenhydramine (Verified Adverse Reaction, Severe, HYPER INSOMNIA, ) Mirtazapine (Verified Adverse Reaction, Intermediate, altered mental status changes, 11/06/16) Nitrofurantoin (Verified Adverse Reaction, Intermediate, CHEST PAIN, CONFUSION, 11/06/16) Oxycodone (Verified Adverse Reaction, Mild, N/V, 11/06/16) Home Medications Scheduled Alendronate Sodium (Alendronate Sodium), 70 MG PO WK Calcitriol (Calcitriol), 0.25 MCG PO DAILY Calcium Carbonate-Cholecalcife (Caltrate 600+D), 1 TAB PO DAILY Chlorthalidone (Hygroton), 12.5 MG PO DAILY Cholecalciferol (Vitamin D-3), 1,000 INTER.UNIT PO DAILY Desmopressin Acetate (Desmopressin Acetate), 0.1 MG PO D Docusate Sodium (Docusate Sodium), 100 MG PO DAILY Glimepiride (Glimepiride), 1 MG PO DAILY Hydrocortisone (Cortef), 15 MG PO QAM Hydrocortisone (Cortef), 5 MG PO UD Lactic Acid (Ammonium Lactate) (Ammonium Lactate), 1 APPLN TOP UD Latanoprost (Latanoprost), 1 DROP OPB HS Levothyroxine Sodium (Levothyroxine Sodium), 125 MCG PO DAILY Multivitamin (Multivitamin), 1 TAB PO DAILY Omeprazole (Prilosec), 20 MG PO DAILY Polyethylene Glycol-Propylene (Systane Ultra), 1 DROP OP Q4-6 HRS Potassium Chloride Microencaps (Potassium Chloride Er), 20 MEQ PO DAILY Probiotic Product (Align), 1 CAP PO DAILY Sodium Fluoride (Dental) (Sf 5000 Plus), 1 APPLN TOP BID Scheduled PRN Acetaminophen (Tylenol), 650 MG PO Q6H PRN for Pain Menthol (Topical Analgesic) (Biofreeze), 1 APPLN TOP UD PRN for Pain Current Inpatient Medications Current Inpatient Medications Medications (Trade) Dose Ordered Sig/Natalee Route Start Time Stop Time Status Last Admin Dose Admin Docusate Sodium (coLACE CAP) 100 mg DAILY PO 11/06/16 09:00 12/06/16 08:59 11/06/16 07:54 100 MG Hydrocortisone (Cortef Tab) 5 mg DAILY@1700 PO 11/06/16 17:00 12/06/16 16:59 Hydrocortisone (Cortef Tab) 15 mg QAM PO 11/06/16 09:00 12/06/16 08:59 11/06/16 07:54 15 MG Latanoprost (Xalatan Oph Soln) 1 drops HS OPB 11/06/16 21:00 12/06/16 20:59 Levothyroxine Sodium (Synthroid Tab) 125 mcg DAILYBB PO 11/06/16 07:30 12/06/16 07:29 11/06/16 07:54 125 MCG Multivitamins (Multivitamin Tab) 1 tab DAILY PO 11/06/16 09:00 12/06/16 08:59 11/06/16 07:53 1 TAB Potassium Chloride (Klor-Con Tab) 20 meq DAILY PO 11/06/16 09:00 12/06/16 08:59 11/06/16 07:54 20 MEQ Pantoprazole Sodium (Protonix Tab) 40 mg QAM PO 11/06/16 09:00 12/06/16 08:59 11/06/16 07:52 40 MG Levofloxacin 750 mg/Prmx 150 ml @ 100 mls/hr Q24H IV 11/07/16 06:00 11/17/16 05:59 Metronidazole 500 mg/Prmx 100 ml @ 100 mls/hr Q8H IV 11/06/16 08:00 11/16/16 07:59 11/06/16 07:55 100 MLS/HR Sodium Chloride 1,000 ml @ 100 mls/hr Q10H IV 11/06/16 07:00 12/06/16 06:59 11/06/16 07:51 100 MLS/HR Miscellaneous (Iv Fluids Completed) 1 ea PRN PRN N/A 11/06/16 08:15 11/06/17 08:14 Review of Systems Constitutional: No fever, No chills, No sweats, No weight loss, No weakness, No fatigue, No problem reported Eyes: No worsening of vision, No eye pain, No redness, No discharge, No diplopia, No problem reported ENT: No hearing loss, No unusual epistaxis, No nasal symptoms, No sore throat, No tinnitus, No dental problems, No trouble swallowing, No problem reported Respiratory: No cough, No sputum, No wheezing, No shortness of breath, No dyspnea on exertion, No dyspnea at rest, No hemoptysis, No problem reported Cardiovascular: No chest pain, No orthopnea, No PND, No edema, No claudication , No palpitations, No problem reported Abdomen: + pain (at RUQ), + nausea Musculoskeletal: No joint pain, No muscle pain, No swelling, No calf pain, No problem reported Genitourinary - Female: No dysuria, No urinary frequency, No urinary urgency, No urinary incontinence, No urinary retention, No hematuria, No dysmenorrhea, No menorrhagia, No metrorrhagia, No rash, No vaginal bleeding, No vaginal discharge, No vaginal itching, No vulvodynia, No , No problem reported Neurologic: No memory loss, No paralysis, No weakness, No numbness/tingling, No vertigo, No balance problems, No problem reported Psychiatric: No depression symptoms, No anhedonism, No anxiety, No insomnia, No substance abuse, No problem reported Endocrine: + problem reported (DM), No fatigue, No excessive thirst, No excessive urination Integumentary: No rash, No itch, No new/changing skin lesions, No color change , No bleeding, No problem reported Physical Exam Date Time Temp Pulse Resp B/P (MAP) Pulse Ox O2 Delivery O2 Flow Rate FiO2 11/06/16 07:45 Room Air 11/06/16 07:23 36.6 90 16 125/80 (95) 94 Room Air 11/06/16 06:25 36.6 100 18 134/84 98 Room Air 11/06/16 06:01 104/75 11/06/16 05:36 87 20 94 11/06/16 05:32 124/96 11/06/16 05:23 151/85 11/06/16 05:06 91 22 11/06/16 04:36 86 29 96 11/06/16 04:31 137/79 11/06/16 04:13 87 18 95 11/06/16 04:01 125/67 11/06/16 03:43 87 17 97 11/06/16 03:32 115/77 11/06/16 03:13 84 38 98 11/06/16 03:09 82 18 141/91 98 Room Air 11/06/16 03:01 141/91 11/06/16 02:13 96 18 97 11/06/16 02:08 89 26 97 11/06/16 01:53 90 20 96 11/06/16 01:52 90 11/06/16 01:42 128/84 11/06/16 01:27 36.8 91 20 120/75 93 Room Air General Appearance: WD/WN, + mild distress Head: normocephalic Eyes: normal inspection ENT: normal ENT inspection Neck: supple, no JVD Respiratory/Chest: chest non-tender, lungs clear, normal breath sounds Cardiovascular: regular rate, rhythm, no edema, no gallop, no JVD Abdomen/GI: normal bowel sounds, soft, no organomegaly, no pulsatile mass, + tenderness (at RUQ, no rebound pain, ) Extremities/Musculoskelatal: normal inspection, no calf tenderness, normal capillary refill Neurologic/Psych: no motor/sensory deficits, alert, normal mood/affect Skin: normal color, warm/dry, no rash Laboratory Results Last 24 Hours Test 11/06/16 02:13 11/06/16 03:00 White Blood Count 14.32 K/uL Red Blood Count 3.92 M/uL Hemoglobin 12.5 g/dL Hematocrit 36.1 % Mean Corpuscular Volume 92.1 fL Mean Corpuscular Hemoglobin 31.9 pg Mean Corpuscular Hemoglobin Concent 34.6 g/dl Platelet Count 217 K/uL Mean Platelet Volume 10.7 fL Neutrophils (%) (Auto) 73.5 % Lymphocytes (%) (Auto) 15.4 % Monocytes (%) (Auto) 8.2 % Eosinophils (%) (Auto) 1.0 % Basophils (%) (Auto) 0.2 % Neutrophils # (Auto) 10.50 K/uL Lymphocytes # (Auto) 2.21 K/uL Monocytes # (Auto) 1.18 K/uL Eosinophils # (Auto) 0.15 K/uL Basophils # (Auto) 0.03 K/uL RDW Standard Deviation 57.4 fL RDW Coefficient of Variation 17.3 % Immature Granulocyte % (Auto) 1.7 % Immature Granulocyte # (Auto) 0.25 K/uL Nucleated RBC Absolute Count (auto) 0.03 K/uL Nucleated Red Blood Cells % 0.2 % Sodium Level 139 mmol/L Potassium Level 3.6 mmol/L Chloride Level 104 mmol/L Carbon Dioxide Level 27 mmol/L Anion Gap 8.0 mmol/L Blood Urea Nitrogen 24 mg/dl Creatinine 0.98 mg/dl Est Creatinine Clear Calc Drug Dose 45.1 ml/min Estimated GFR () 63.1 Estimated GFR (Non- 54.5 BUN/Creatinine Ratio 24.8 Random Glucose 85 mg/dl Calcium Level 8.9 mg/dl Total Bilirubin 0.4 mg/dl Direct Bilirubin 0.2 mg/dl Aspartate Amino Transf (AST/SGOT) 33 U/L Alanine Aminotransferase (ALT/SGPT) 43 U/L Alkaline Phosphatase 131 U/L Troponin I < 0.015 ng/ml Total Protein 6.6 gm/dl Albumin 2.5 gm/dl Lipase 108 U/L Urine Color YELLOW Urine Appearance CLEAR Urine pH 7.5 Urine Specific [place] 1.019 Urine Protein NEG Urine Glucose (UA) NEG Urine Ketones NEG Urine Occult Blood NEG Urine Nitrite NEG Urine Bilirubin NEG Urine Urobilinogen NEG Urine Leukocyte Esterase SMALL Urine WBC (Auto) 5-10 /hpf Urine RBC (Auto) 0-4 /hpf Urine Hyaline Casts (Auto) 1-5 /lpf Urine Epithelial Cells (Auto) 10-20 /lpf Urine Bacteria (Auto) NEG Assessment & Plan U/S study-IMPRESSION: 1. Cholelithiasis and gallbladder sludge. No significant gallbladder distention or convincing evidence of cholecystitis. No biliary ductal dilatation. Notably, ultrasound may be normal in the setting of cholangitis, which is not excluded. 2. Cortical thinning of the right kidney could suggest chronic medical renal disease. Assessment:The patient is a 81 year old female who presents to the Emergency Room with complaints of intermittent RUQ abdominal pain that began a couple of days ago.pt had CBD stent placed 2 weeks ago, based on mulple times RUQ pain, cholecystitis, with gallstones, pt and want to do cholecystectomy, pt will have laparoscopic cholecystectomy, possible open or cholangiogram tomorrow, D/W benefits, risks and alternatives of darlene procedure, the risks may including but not limit, such as bleeding, infection, injury CBD, Bowel, may need ERCP, OK, DVT, stroke, , they understood, they agree with the plan, I answered all questions.
--- NOTE | 2016-11-06 12:36 | Progress Note ---
Subjective Date of Service: Nov 06, 2016. Subjective Pt evaluation today including: conversation w/ patient, conversation w/ family , physical exam, chart review, lab review, review of studies, conversation w/ devops consultant, review of inpatient medication list No complaining, no right upper quadrant pain now, no fever and chill, Problem List Medical Problems: (1) Acute kidney injury Status: Acute (2) VERO (acute kidney injury) Status: Acute (3) Altered mental status Status: Acute (4) Altered mental status Status: Acute (5) Altered mental status Status: Acute (6) Altered mental status Status: Acute (7) Altered mental status Status: Acute (8) Ascending cholangitis Status: Acute (9) Atrial fibrillation Status: Acute (10) Dehydration Status: Acute (11) Dehydration Status: Acute (12) Dysarthria Status: Acute (13) Hearing voices Status: Acute (14) Hydronephrosis Status: Acute (15) Hydronephrosis Status: Acute (16) Kidney stone Status: Acute (17) Leukocytosis Status: Acute (18) Medication reaction Status: Acute (19) Nausea & vomiting Status: Acute (20) Pleural effusion Status: Acute (21) Right ureteral calculus Status: Acute (22) RUQ abdominal pain Status: Acute (23) Sepsis Status: Acute (24) Sepsis Status: Acute (25) Urinary tract infection Status: Acute Review of Systems Constitutional: No fever, No chills, No sweats, No weight loss, No weakness, No fatigue, No problem reported Eyes: No worsening of vision, No eye pain, No redness, No discharge, No diplopia ENT: No hearing loss, No unusual epistaxis, No nasal symptoms, No sore throat, No tinnitus, No dental problems, No trouble swallowing Respiratory: No cough, No sputum, No wheezing, No shortness of breath, No dyspnea on exertion, No dyspnea at rest, No hemoptysis Cardiac: No chest pain, No orthopnea, No PND, No edema, No claudication, No palpitations Abdomen: + see HPI, No pain, No nausea, No vomiting, No diarrhea, No constipation Musculoskeletal: No joint pain, No muscle pain, No swelling, No calf pain Female : No dysuria, No urinary frequency, No hematuria, No incontinence, No abnormal vaginal bleeding, No vaginal discharge Neurologic: No memory loss, No paralysis, No weakness, No numbness/tingling, No vertigo, No balance problems Psychiatric: No depression symptoms, No anhedonism, No anxiety, No insomnia, No substance abuse Heme: No abnormal bleeding/bruising, No clotting problems, No swollen lymph nodes, No night sweats Endo: No fatigue, No excessive thirst, No excessive urination Skin: No rash, No itch, No new/changing skin lesions, No color change, No bleeding Objective Vital Signs Date Time Temp Pulse Resp B/P (MAP) Pulse Ox O2 Delivery O2 Flow Rate FiO2 11/06/16 07:45 Room Air 11/06/16 07:23 36.6 90 16 125/80 (95) 94 Room Air 11/06/16 06:25 36.6 100 18 134/84 98 Room Air 11/06/16 06:01 104/75 11/06/16 05:36 87 20 94 11/06/16 05:32 124/96 11/06/16 05:23 151/85 11/06/16 05:06 91 22 11/06/16 04:36 86 29 96 11/06/16 04:31 137/79 11/06/16 04:13 87 18 95 11/06/16 04:01 125/67 11/06/16 03:43 87 17 97 11/06/16 03:32 115/77 11/06/16 03:13 84 38 98 11/06/16 03:09 82 18 141/91 98 Room Air 11/06/16 03:01 141/91 11/06/16 02:13 96 18 97 11/06/16 02:08 89 26 97 11/06/16 01:53 90 20 96 11/06/16 01:52 90 11/06/16 01:42 128/84 11/06/16 01:27 36.8 91 20 120/75 93 Room Air Physical Exam General Appearance: WD/WN, no apparent distress Eyes: normal inspection, PERRL, EOMI, sclerae normal ENT: normal ENT inspection, hearing grossly normal, pharynx normal Neck: supple, no adenopathy, thyroid normal, no JVD, no carotid bruits, trachea midline Respiratory/Chest: chest non-tender, lungs clear, normal breath sounds, no respiratory distress, no accessory muscle use Cardiovascular: regular rate, rhythm, no edema, no gallop, no JVD, no murmur Abdomen: normal bowel sounds, soft, no organomegaly, no pulsatile mass, + tenderness (in right upper quadrant deep tenderness) Extremities: normal range of motion, non-tender, normal inspection, no pedal edema, no calf tenderness, normal capillary refill, pelvis stable Neurologic/Psychiatric: 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2 % Neutrophils # (Auto) 10.50 K/uL Lymphocytes # (Auto) 2.21 K/uL Monocytes # (Auto) 1.18 K/uL Eosinophils # (Auto) 0.15 K/uL Basophils # (Auto) 0.03 K/uL RDW Standard Deviation 57.4 fL RDW Coefficient of Variation 17.3 % Immature Granulocyte % (Auto) 1.7 % Immature Granulocyte # (Auto) 0.25 K/uL Nucleated RBC Absolute Count (auto) 0.03 K/uL Nucleated Red Blood Cells % 0.2 % Sodium Level 139 mmol/L Potassium Level 3.6 mmol/L Chloride Level 104 mmol/L Carbon Dioxide Level 27 mmol/L Anion Gap 8.0 mmol/L Blood Urea Nitrogen 24 mg/dl Creatinine 0.98 mg/dl Est Creatinine Clear Calc Drug Dose 45.1 ml/min Estimated GFR () 63.1 Estimated GFR (Non- 54.5 BUN/Creatinine Ratio 24.8 Random Glucose 85 mg/dl Calcium Level 8.9 mg/dl Total Bilirubin 0.4 mg/dl Direct Bilirubin 0.2 mg/dl Aspartate Amino Transf (AST/SGOT) 33 U/L Alanine Aminotransferase (ALT/SGPT) 43 U/L Alkaline Phosphatase 131 U/L Troponin I < 0.015 ng/ml Total Protein 6.6 gm/dl Albumin 2.5 gm/dl Lipase 108 U/L Urine Color YELLOW Urine Appearance CLEAR Urine pH 7.5 Urine Specific [place] 1.019 Urine Protein NEG Urine Glucose (UA) NEG Urine Ketones NEG Urine Occult Blood NEG Urine Nitrite NEG Urine Bilirubin NEG Urine Urobilinogen NEG Urine Leukocyte Esterase SMALL Urine WBC (Auto) 5-10 /hpf Urine RBC (Auto) 0-4 /hpf Urine Hyaline Casts (Auto) 1-5 /lpf Urine Epithelial Cells (Auto) 10-20 /lpf Urine Bacteria (Auto) NEG Assessment and Plan 81 year old female admitted on 11/06/2016 with with possible chronic cholecystitis with intermittent RUQ abdominal pain that began a couple of days ago. was in the hospital last month for her gallbladder, received a stent, was planning on removing it in 3 months or so. Patient has past medical history include acute cholecystitis, cholelithiasis, depression, diabetic insipidus, GERD, dyslipidemia, CAD Acute on chronic cholecystitis with intermittent RUQ abdominal pain U/S study-IMPRESSION: 1. Cholelithiasis and gallbladder sludge. No significant gallbladder distention or convincing evidence of cholecystitis. No biliary ductal dilatation. Notably, ultrasound may be normal in the setting of cholangitis, which is not excluded. 2. Cortical thinning of the right kidney could suggest chronic medical renal disease. mulple times RUQ pain, cholecystitis, with gallstones, pt and want to do cholecystectomy, Surgeon is consulted, is planning to have laparoscopic cholecystectomy, possible open or cholangiogram tomorrow, Labs reviewed, PT/INR is going to be checked, EKG will be done GI and DVT prophylaxis is covered Continued [facility] stay due to: multiple IV medications needed Discharge planning: home
--- NOTE | 2016-11-06 12:46 | Progress Note ---
Progress Note Date of Service Nov 06, 2016. Progress Note Patient is an 81 year old female planned for lap cholecystectomy with Dr Carter on 11/07 for gallstones. The patient had an uneventful ERCP last month with general anesthesia. Airway management was assisted by elective glidescope due to minimal neck mobility. Ventilation after induction was easy, per records. 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 To manage her resulting endocrine dysfunction, he has been on mcc chronic hydocortisone at a dose of 5mg/day and also synthroid. Airway exam shows virtually no neck mobility. The patient opens wide and has in tact dentition. Labs and studies were reviewed. A recent echocardiogram was normal. Questions answered and consent obtained. Will plan for general anesthetic +/- stress dose steroids at the discretion of the anesthesiologist on the day of procedure.
[2016-11-06] MEDS ORDERED: GLUCAGON FOR INJ 1 MG VIAL SQ PRN (13:30)
[2016-11-06] MEDS ORDERED: GLUCOSE 40% GEL 15 GM TUBE PO PRN (13:30)
[2016-11-06] MEDS ORDERED: DEXTROSE 50% 50 ML SYR IV PRN (13:30)
[2016-11-06] MEDS ORDERED: GLUCOSE 10 TABS/TUBE PO PRN (13:30)
[2016-11-06 16:10] VITALS: BP 116/68; PULSE 94; TEMP 36.6; O2SAT 94
[2016-11-06] MEDS: INSULIN ASPART 100 UNITS/ML 3 ML PEN SC SCH ×2 (17:15→21:00)
[2016-11-06] MEDS: LATANOPROST 0.005% OP SOLN 2.5 ML BTL OPB SCH (20:55)
[2016-11-06 23:36] VITALS: BP 97/64; PULSE 91; TEMP 36.9; O2SAT 94
[2016-11-07] VITALS (9 sets, daily range): BP systolic 97–140; BP diastolic 65–87; PULSE 85–121; TEMP 36.3–36.6; O2SAT 93–100
[2016-11-07] MEDS: METRONIDAZOLE / NSS 500 MG in PREMIXED NSS 100 ML IV SCH ×2 (00:04→08:29)
[2016-11-07] MEDS ORDERED: NURSING DECISION MEDICATION ORDER SCH (00:30)
[2016-11-07] MEDS: SODIUM CHLORIDE 0.9% 1000ML 1,000 ML IV SCH ×3 (02:04→21:33)
[2016-11-07] MEDS: ACETAMINOPHEN IV 100 ML IV PRN ×2 (02:51→18:16)
[2016-11-07] MEDS ORDERED: INSULIN ASPART 100 UNITS/ML 3 ML PEN SC SCH (06:00)
[2016-11-07] MEDS ORDERED: CLINDAMYCIN 600 MG/54 ML D5W IV SCH (06:00)
[2016-11-07] MEDS: LEVOFLOXACIN / D5W 750 MG in PREMIXED IN D5W 150 ML IV SCH (06:00)
[2016-11-07] MEDS: LEVOTHYROXINE 125 MCG TAB PO SCH (06:00)
[2016-11-07] MEDS ORDERED: BACITRACIN OINT 15 GM TUBE ONE (07:40)
[2016-11-07] MEDS ORDERED: BUPIVACAINE 0.5 % 5 MG/1 ML MPF 30ML VIAL ONE (07:40)
[2016-11-07] MEDS ORDERED: LIDOCAINE HCL 1% 20 ML VIAL ONE (07:40)
[2016-11-07] MEDS ORDERED: CONRAY 60% 50 ML VIAL ONE (07:41)
[2016-11-07] MEDS ORDERED: NURSING VERBAL MED ORDER STA (07:54)
[2016-11-07] MEDS ORDERED: CLINDAMYCIN 600 MG/54 ML D5W IV ONE (07:58)
[2016-11-07] MEDS ORDERED: LIDOCAINE HCL 2% 2 ML VIAL (20MG/ML) ONE (08:08)
[2016-11-07] MEDS ORDERED: PROPOFOL IV EMULSION 10 MG/ML 20 ML VIAL IV ONE (08:08)
[2016-11-07] MEDS ORDERED: FENTANYL CITRATE INJ 50 MCG/1 ML 2 ML VIAL ONE (08:09)
[2016-11-07] MEDS ORDERED: MIDAZOLAM HCL 1 MG/ML 2ML VIAL ONE (08:09)
[2016-11-07] MEDS ORDERED: EpHEDrine SULFATE 50MG/5ML SYR ONE (08:44)
[2016-11-07] MEDS ORDERED: GLYCOPYRROLATE INJ 0.2 MG/ML VIAL ONE (08:44)
[2016-11-07] MEDS ORDERED: NEOSTIGMINE METHYLSULFATE 5 MG/5 ML SYR ONE (08:44)
[2016-11-07] MEDS ORDERED: ONDANSETRON INJ 2 MG/ML 2 ML VIAL ONE (08:44)
[2016-11-07] MEDS ORDERED: ROCURONIUM BROMIDE 10 MG/ML 5 ML VIAL ONE (08:44)
[2016-11-07] MEDS ORDERED: ATROPINE SULFATE 0.1 MG/ML 5ML SYR IV PRN (08:45)
[2016-11-07] MEDS ORDERED: ONDANSETRON INJ 2 MG/ML 2 ML VIAL IV PRN ×2 (08:45→09:45)
[2016-11-07] MEDS ORDERED: DESMOPRESSIN ACETATE 0.1 MG TAB PO SCH (09:00)
[2016-11-07] MEDS ORDERED: ESMOLOL HCL 10 MG/ML 10 ML VIAL ONE (09:02)
--- NOTE | 2016-11-07 09:40 | [facility] Post Operative Brief Note ---
Immediate Operative Summary Operative Date Nov 07, 2016. Pre-Operative Diagnosis Acute cholecystitis, Cholelithiasis and gall bladder sludge Post-Operative Diagnosis acute cholecystitis, Cholelithiasis and gall bladder sludge Procedure(s) Performed Laparoscopic Cholecystectomy Surgeon Dr. Carter Automotive Generator Repairer Surgeon(s) neurosurgical nurse Estimated Blood Loss 15 cc Findings acute cholecystitis, Fluids (cc crystalloids) 700ml Specimens A: gallbladder and contents Drains none Anesthesia General Complication(s) None Disposition Recovery Room / PACU
[2016-11-07] MEDS ORDERED: HYDROmorphone INJ 1 MG/ML SYR IV PRN (09:45)
[2016-11-07] MEDS ORDERED: ACETAMINOPHEN 325 MG TAB PO PRN (09:45)
[2016-11-07] MEDS: HYDROmorphone INJ 2 MG/ML SYR/VIAL IV PRN ×2 (09:46→09:51)
--- NOTE | 2016-11-07 10:18 | [facility] Operative Report ---
Operative Report Operative Date Nov 07, 2016. Pre-Operative Diagnosis Acute cholecystitis, Cholelithiasis and gall bladder sludge Post-Operative Diagnosis acute cholecystitis, Cholelithiasis and gall bladder sludge Procedure(s) Performed Laparoscopic Cholecystectomy Surgeon Dr. Carter Fitness Trainer Surgeon(s) director medical surgical Estimated Blood Loss 15 cc Findings acute cholecystitis, with pus around gallbladder, Fluids 700ml Specimens A: gallbladder and contents Drains none Anesthesia General Complication(s) None Disposition Recovery Room / PACU Indications Patient is a 81 years old female who was admitted to hospital for 1 Month history of right upper quadrant pain, patient was a diagnosis of acute cholecystitis with gallstone, patient and patient's family member required to do laparoscopic cholecystectomy possible open and cholangiogram, I talked to patient and the patient's family member about the benefits, risk and alternate of the procedure, I indicates the risks may include but not limit, such as bleeding, infection, sepsis, injury or common bile duct or bowel, may need ERCP, myocardial infarction, DVT, stroke, even , they understand. patient' s signed informed consent, I Answered all questions. Description of Procedure We bring patient to his operating room, with the patient on the superior position, patient received a SCD on bilateral leg to prevent DVT, patient received 600 mg clindamycin IV for prophylactic antibiotic, patient received general anesthesia without difficulty, the abdomen was prep and drip in routine sterilization fashion, we injections of local anesthesia by using 1% lidocaine mixed with 0.5% Marcaine just above umbilical, then the small incision was made just above umbilical, open fascial and peritoneal under direct vision, put a hostile trocar in conduct of CO2 to create pneumoperitoneal flow rate 6 L/min, pressure not more than 14 mmHg, newly put a 10 mm camera again look around the abdomen shows normal finding on the stomach small bowel or large bowel however the gallbladder showed is a significant inflammation, with omental cover gallbladder, the gallbladder's wall is significant thickening edema there are some pus around the gallbladder also, then I put another 3 5 mm trocar on the right upper abdomen, and a positive or aspirin hold the base of the gallbladder with the direction towards the diaphragm put another grasper to hold the porch of gallbladder to pull lateral to expose triangle clot, to cease the duct was identified and mobilized , now put a total 2 5 mm metal clip on proximal of cyst duct, and one clip on distal of cyst duct, the cyst duct was transected, the cyst artery was identified and mobilized, then I put 2 5 mg meter mental clip was on proximal of cyst artery, one on distal of cyst artery, cyst artery was transected, then I use of Bovie takedown gallbladder from the liver bed, recheck no active bleeding, no bile leak, newly removal gallbladder by suing catch bag, then re-inserted Trocar in to Conduct of CO2 to Create Pneumoperitoneum Again, re-check Abdomen Shows No Active Bleeding, No Bile Leak from the Liver Bed, then I Removal All Trochars under Direct Lesion No Active Bleeding from Trocar Site, the pneumoperitoneum was released, now close his umbilical incision fashion layer using #1 Vicryl [id number], close subcutaneous layer by using 2-0 Vicryl suture, close skin by using 4-0 Vicryl , other 3 5 millimeters trocar site close skin by using 4-0 Vicryl, all instrument, needle, sponge, count correct time 2 at end of case, the specimen sent to pathology. patient transferred to recovery room in stable condition patient tolerated procedure well operative procedure, I talked to patient family member about the OR finding procedure patient had. they understood, I answered all questions. I attest to the content of the Intraoperative Record and any orders documented therein. Any exceptions are noted below.
--- NOTE | 2016-11-07 10:48 | Anesthesiology Progress Note ---
Anesthesia Post Op Note Date & Time Nov 07, 2016 at 10:48 Vital Signs Pain Intensity: 0.0 Vital Signs Past 12 Hours Date Time Temp Pulse Resp B/P (MAP) Pulse Ox O2 Delivery O2 Flow Rate FiO2 11/07/16 10:36 98 Nasal Cannula 2.0 11/07/16 10:30 36.3 89 16 106/70 (82) 98 Nasal Cannula 2.0 11/07/16 10:20 36.2 88 18 120/66 100 Nasal Cannula 2 11/07/16 10:10 88 18 115/70 100 Nasal Cannula 2 11/07/16 10:00 86 18 119/78 100 Oxymask 10 11/07/16 09:50 89 18 82/58 100 Oxymask 10 11/07/16 09:40 36.5 102 25 115/87 98 Oxymask 10 11/07/16 07:40 36.3 85 18 123/84 (97) 99 Room Air 11/07/16 07:30 Room Air 11/07/16 00:15 Room Air 11/06/16 23:36 36.9 91 17 97/64 (75) 94 Room Air Notes Mental Status: alert / awake / arousable, participated in evaluation Pt Amnestic to Procedure: Yes Nausea / Vomiting: adequately controlled Pain: adequately controlled Airway Patency, RR, SpO2: stable & adequate BP & HR: stable & adequate Hydration State: stable & adequate Anesthetic Complications: no major complications apparent
[2016-11-07] MEDS ORDERED: NURSING VERBAL MED ORDER ONE ×2 (11:30→13:00)
--- NOTE | 2016-11-07 12:31 | Progress Note ---
Subjective Date of Service: Nov 07, 2016. Subjective Pt evaluation today including: conversation w/ patient, physical exam, chart review, lab review, review of studies, conversation w/ skin care consultant, review of inpatient medication list One hour Back from operation room when I saw her, still confused, not wake up., Minimal opening eyes, a little moaning Problem List Medical Problems: (1) Acute kidney injury Status: Acute (2) VERO (acute kidney injury) Status: Acute (3) Altered mental status Status: Acute (4) Altered mental status Status: Acute (5) Altered mental status Status: Acute (6) Altered mental status Status: Acute (7) Altered mental status Status: Acute (8) Ascending cholangitis Status: Acute (9) Atrial fibrillation Status: Acute (10) Dehydration Status: Acute (11) Dehydration Status: Acute (12) Dysarthria Status: Acute (13) Hearing voices Status: Acute (14) Hydronephrosis Status: Acute (15) Hydronephrosis Status: Acute (16) Kidney stone Status: Acute (17) Leukocytosis Status: Acute (18) Medication reaction Status: Acute (19) Nausea & vomiting Status: Acute (20) Pleural effusion Status: Acute (21) Right ureteral calculus Status: Acute (22) RUQ abdominal pain Status: Acute (23) Sepsis Status: Acute (24) Sepsis Status: Acute (25) Urinary tract infection Status: Acute Review of Systems Constitutional: + problem reported (not able to obtain because not fully wake up.) Objective Vital Signs Date Time Temp Pulse Resp B/P (MAP) Pulse Ox O2 Delivery O2 Flow Rate FiO2 11/07/16 12:27 36.4 96 18 120/80 (93) 100 2.0 11/07/16 11:42 100 16 125/80 (95) 97 Nasal Cannula 2.0 11/07/16 10:36 98 Nasal Cannula 2.0 11/07/16 10:30 36.3 89 16 106/70 (82) 98 Nasal Cannula 2.0 11/07/16 10:20 36.2 88 18 120/66 100 Nasal Cannula 2 11/07/16 10:10 88 18 115/70 100 Nasal Cannula 2 11/07/16 10:00 86 18 119/78 100 Oxymask 10 11/07/16 09:50 89 18 82/58 100 Oxymask 10 11/07/16 09:40 36.5 102 25 115/87 98 Oxymask 10 11/07/16 07:40 36.3 85 18 123/84 (97) 99 Room Air 11/07/16 07:30 Room Air 11/07/16 00:15 Room Air 11/06/16 23:36 36.9 91 17 97/64 (75) 94 Room Air 11/06/16 16:10 36.6 94 16 116/68 (84) 94 Room Air 11/06/16 15:40 Room Air Physical Exam General Appearance: + pertinent finding (in rest, no acute distress, vital signs stable) Eyes: normal inspection, PERRL ENT: normal ENT inspection Neck: supple Respiratory/Chest: normal breath sounds, no respiratory distress, + decreased breath sounds Cardiovascular: regular rate, rhythm, no edema, no gallop Abdomen: normal bowel sounds, soft Extremities: normal inspection, no pedal edema Neurologic/Psychiatric: 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 was in the hospital last month for her gallbladder, received a stent, was planning on removing it in 3 months. Today patient had laparoscopic cholecystectomy Patient has past medical history include acute cholecystitis, cholelithiasis, depression, diabetic insipidus, GERD, dyslipidemia, CAD Acute on chronic cholecystitis with intermittent RUQ abdominal pain upon admission Acute cholecystitis, Cholelithiasis and gall bladder sludge s/p Laparoscopic Cholecystectomy on 11/07/2016 U/S study-IMPRESSION: 1. Cholelithiasis and gallbladder sludge. No significant gallbladder distention or convincing evidence of cholecystitis. No biliary ductal dilatation. Notably, ultrasound may be normal in the setting of cholangitis, which is not excluded. 2. Cortical thinning of the right kidney could suggest chronic medical renal disease. multiple times RUQ pain, cholecystitis, with gallstones, pt and want to do cholecystectomy, Surgeon is consulted, laparoscopic cholecystectomy was done Continue IV fluid and IV antibiotic, and supportive care, May start diet per surgeon and when patient wake up Has changed full admission and PT OT evaluation and treatment ordered pt has ERCP w/ stent on 10/09/2016 , planned to removal in 6 weeks, will consult [facility] LOWE, Dr. salter, this is patient family's request called , updated him pt's conditions, and care plan manager in training for discharge plan GI and DVT prophylaxis is covered Continued [facility] stay due to: multiple IV medications needed Discharge planning: home
[2016-11-07] MEDS: PANTOprazole SOD 40 MG TAB PO SCH (12:49)
[2016-11-07] MEDS: DOCUSATE SODIUM 100 MG CAP PO SCH (12:49)
[2016-11-07] MEDS: HYDROCORTISONE 10 MG TAB PO SCH ×2 (12:50→16:59)
[2016-11-07] MEDS: MULTIVITAMIN TAB PO SCH (12:51)
[2016-11-07] MEDS: POTASSIUM CHLORIDE 20 MEQ TABCR PO SCH (12:51)
[2016-11-07] MEDS: INSULIN ASPART 100 UNITS/ML 3 ML PEN SC SCH ×3 (13:26→21:10)
--- NOTE | 2016-11-07 15:24 | Gastrointestinal Consultation ---
Gastrointestinal Consultation Date of Consultation: Nov 07, 2016 Attending Physician: Dr. Carter Consulting Physician: Dr. Hicks Reason for Consultation: Recent ERCP with stent History of Present Illness Patient is a 81 year old female who underwent ERCP for choledocholithiasis and cholangitis with sphincterotomy and stone removal as well as placement of a CBD stent by Dr. Chappell on 09/2016. She was schedule for cholecystectomy for 3 months as well as ERCP in 6 weeks for stent removal, but presented to the ED with increased pain and underwent cholecystectomy today. Her is in the room and asks if there is any change in the plan for repeat ERCP for stent removal on November 21. Past Medical/Surgical History Medical Problems: (1) Acute kidney injury Status: Acute (2) VERO (acute kidney injury) Status: Acute (3) Altered mental status Status: Acute (4) Altered mental status Status: Acute (5) Altered mental status Status: Acute (6) Altered mental status Status: Acute (7) Altered mental status Status: Acute (8) Ascending cholangitis Status: Acute (9) Atrial fibrillation Status: Acute (10) Dehydration Status: Acute (11) Dehydration Status: Acute (12) Dysarthria Status: Acute (13) Hearing voices Status: Acute (14) Hydronephrosis Status: Acute (15) Hydronephrosis Status: Acute (16) Kidney stone Status: Acute (17) Leukocytosis Status: Acute (18) Medication reaction Status: Acute (19) Nausea & vomiting Status: Acute (20) Pleural effusion Status: Acute (21) Right ureteral calculus Status: Acute (22) RUQ abdominal pain Status: Acute (23) Sepsis Status: Acute (24) Sepsis Status: Acute (25) Urinary tract infection Status: Acute Past Medical History: 1. Atrial fibrillation 2. Kidney stones 3. GERD 4. HTN 5. IBS 6. Cervical fractures 7. Hypothyroidism 8. Seizure disorder 9. Meningioma of the brain,CKD-3 10. Gallbladder disease 11. Cholangitis Past Surgical History: 1. ERCP on 10/10 2. Cholecystectomy today 11/07/16 3. Bilat oophorectomies 4. Removal of brain tumor w/ bone flap Family History Bladder cancer MOTHER Breast cancer SISTER FH: kidney disease FHx: heart disease Skin cancer MOTHER Social History Smoking Status: Never Smoker Alcohol Use: none Drug Use: none Marital Status: Housing Status: lives with family Occupation Status: retired Allergies Coded Allergies: Amoxicillin (Verified Allergy, Intermediate, Swelling of Lips, 11/06/16) Ciprofloxacin (Verified Allergy, Intermediate, RASH, NAUSEA, 11/06/16) has tolerated levaquin without any notable problem (see September 2016 admission) Sulfa Antibiotics (Verified Allergy, Intermediate, RASH, 11/06/16) Biotin (Verified Allergy, Unknown, UNKN, 11/06/16) Cefepime (Verified Adverse Reaction, Severe, HALLUCINATIONS, 11/06/16) Diphenhydramine (Verified Adverse Reaction, Severe, HYPER INSOMNIA, ) Mirtazapine (Verified Adverse Reaction, Intermediate, altered mental status changes, 11/06/16) Nitrofurantoin (Verified Adverse Reaction, Intermediate, CHEST PAIN, CONFUSION, 11/06/16) Oxycodone (Verified Adverse Reaction, Mild, N/V, 11/06/16) Current Medications Home Meds and Scripts Medications Dose Route/Sig Max Daily Dose Days Date Category Dose Instructions Glimepiride 1 Mg Tab 1 Mg PO DAILY 11/06/16 Reported Hygroton (Chlorthalidone) 25 Mg Tab 12.5 Mg PO DAILY 10/08/16 Reported Sf 5000 Plus (Sodium Fluoride (Dental)) 1.1 % Cre 1 Appln TOP BID 10/08/16 Reported Desmopressin Acetate 0.1 Mg Tab 0.1 Mg PO D 10/08/16 Reported Multivitamin (Multivitamins) Tab 1 Tab PO DAILY 09/04/16 Reported Docusate Sodium 100 Mg Cap 100 Mg PO DAILY 08/07/16 Reported Ammonium Lactate (Lactic Acid (Ammonium Lactate)) 12 % Lot 1 Appln TOP UD 08/07/16 Reported Alendronate Sodium 70 Mg Tab 70 Mg PO WK 08/07/16 Reported TAKE THIS MEDICATION ONCE WEEKLY 30 TO 60 MINUTES PRIOR TO BREAKFAST OM AM EMPTY STOMACH. DO NOT LIE DOWN AFTER TAKING THIS MEDICATION. Levothyroxine Sodium 125 Mcg Tab 125 Mcg PO DAILY 08/07/16 Reported Potassium Chloride Er (Potassium Chloride Microencaps) 20 Meq Tab 20 Meq PO DAILY 08/07/16 Reported Cortef (Hydrocortisone) 10 Mg Tab 5 Mg PO UD 08/07/16 Reported TAKE HALF A TABET (5 MG) 8 HOURS AFTER MORNING DOSE Cortef (Hydrocortisone) 10 Mg Tab 15 Mg PO QAM 08/07/16 Reported Calcitriol 0.25 Mcg Cap 0.25 Mcg PO DAILY 08/07/16 Reported Latanoprost 37 Drops/2.5 Ml Soln 1 Drop OPB HS 08/07/16 Reported Vitamin D-3 (Cholecalciferol) 1,000 Unit Tab 1,000 Inter.unit PO DAILY 06/01/16 Reported Caltrate 600+D (Calcium Carbonate-Cholecalcife) 1 Tab Tab 1 Tab PO DAILY 03/29/16 Reported Align (Probiotic Product) 4 Mg Cap 1 Cap PO DAILY 03/29/16 Reported Systane Ultra (Polyethylene Glycol-Propylene) 1 Leslie Leslie 1 Drop OP Q4-6 HRS 11/28/15 Reported Biofreeze (Menthol (Topical Analgesic)) Unknown Strength Gel 1 Appln TOP UD PRN 11/28/15 Reported APPLY PER PACKAGE DIRECTIONS Prilosec (Omeprazole) 20 Mg Cap 20 Mg PO DAILY 10/01/14 Reported Tylenol (Acetaminophen) 325 Mg Tab 650 Mg PO Q6H PRN 06/05/14 Reported Review of Systems Constitutional: No fever, No chills, No sweats, No weight loss, No weakness Eyes: No eye pain, No redness ENT: No sore throat, No trouble swallowing, No pain on swallowing Respiratory: No cough, No wheezing, No shortness of breath, No dyspnea on exertion Cardiac: No chest pain, No edema, No palpitations Abdomen: + see HPI, + pain, + nausea, No vomiting, No diarrhea, No constipation , No GI bleeding Neuro: No memory loss, No weakness, No numbness/tingling, No vertigo, No balance problems Psych: No depression symptoms, No anxiety, No insomnia Heme: No abnormal bleeding/bruising, No night sweats Endo: No excessive thirst, No excessive urination Skin: No rash, No itch, No new/changing skin lesions, No jaundice Physical Exam Date Time Temp Pulse Resp B/P (MAP) Pulse Ox O2 Delivery O2 Flow Rate FiO2 11/07/16 12:27 36.4 96 18 120/80 (93) 100 2.0 11/07/16 11:42 100 16 125/80 (95) 97 Nasal Cannula 2.0 11/07/16 10:36 98 Nasal Cannula 2.0 11/07/16 10:30 36.3 89 16 106/70 (82) 98 Nasal Cannula 2.0 11/07/16 10:20 36.2 88 18 120/66 100 Nasal Cannula 2 11/07/16 10:10 88 18 115/70 100 Nasal Cannula 2 11/07/16 10:00 86 18 119/78 100 Oxymask 10 11/07/16 09:50 89 18 82/58 100 Oxymask 10 11/07/16 09:40 36.5 102 25 115/87 98 Oxymask 10 11/07/16 07:40 36.3 85 18 123/84 (97) 99 Room Air 11/07/16 07:30 Room Air 11/07/16 00:15 Room Air 11/06/16 23:36 36.9 91 17 97/64 (75) 94 Room Air 11/06/16 16:10 36.6 94 16 116/68 (84) 94 Room Air 11/06/16 15:40 Room Air General Appearance: no apparent distress Eyes: normal inspection, EOMI Neck: supple, no adenopathy, thyroid normal Respiratory/Chest: chest non-tender, lungs clear, normal breath sounds, no accessory muscle use Cardiovascular: regular rate, rhythm, no JVD, no murmur Abdomen: normal bowel sounds, soft, no organomegaly, + pertinent finding ( surgical dressing in place) Extremities: normal inspection, no pedal edema, normal capillary refill Neurologic/Psych: alert, normal mood/affect, oriented x 3 Skin: normal color, no jaundice, warm/dry, no rash Laboratory Results Last 24 Hours Test 11/06/16 17:28 11/06/16 21:01 11/07/16 04:44 11/07/16 05:59 Bedside Glucose 82 mg/dl 144 mg/dl 88 mg/dl Test 11/07/16 09:48 Bedside Glucose 91 mg/dl Impression Patient is a 81 year old female with recent cholangitis, who underwent cholecystectomy today. She will need ERCP for stent removal in as scheduled in the beginning of November. Plan No change in plan for ERCP for stent removal as scheduled on November 21, 2016. GI will sign off.
[2016-11-07] MEDS: CLINDAMYCIN IV 300 MG in DEXTROSE 5% 50ML 50 ML IV SCH ×2 (15:47→23:49)
[2016-11-07 15:54] LABS: BASO % 0.2 %; BASO ABS # 0.03 K/uL (0-0.2); COMPLETE YES; EOS % 0.4 %; HEMATOCRIT 36.9 % (37-47); IG% 1.5 %; LYMPH % 4.9 %; MEAN CELL VOLUME 94.9 fL (80-100); MEAN CORPUSCULAR HEMOGLOBIN 31.6 pg (25-34); MEAN CORPUSCULAR HGB CONC 33.3 g/dl (32-36); MEAN PLATELET VOLUME 10.8 fL (7.4-10.4); MONO % 12.3 %; NEUT % 80.7 %; PLATELET COUNT 216 K/uL (130-400); RED BLOOD COUNT 3.89 M/uL (4.2-5.4); WHITE BLOOD COUNT 16.22 K/uL (4.8-10.8)
[2016-11-07 16:16] LABS: BUN/CREATININE RATIO 10.7 (10-20); CALCIUM 8.7 mg/dl (8.5-10.1); CREATININE 1.3 mg/dl (0.60-1.20); MAGNESIUM 1.9 mg/dl (1.8-2.4); POTASSIUM 3.8 mmol/L (3.5-5.1)
[2016-11-07] MEDS: DESMOPRESSIN ACETATE 0.1 MG TAB PO SCH (21:08)
[2016-11-07] MEDS: LATANOPROST 0.005% OP SOLN 2.5 ML BTL OPB SCH (21:08)
[2016-11-07] MEDS: HYDROmorphone INJ 0.5 MG/0.5 ML SYR IV PRN (21:16)
[2016-11-08 03:25] VITALS: BP 134/76; PULSE 126; TEMP 36.7; O2SAT 90
[2016-11-08] MEDS: HYDROmorphone INJ 0.5 MG/0.5 ML SYR IV PRN (03:27)
[2016-11-08] MEDS ORDERED: CLINDAMYCIN 600 MG/54 ML D5W IV ONE (06:00)
[2016-11-08] MEDS: LEVOTHYROXINE 125 MCG TAB PO SCH (06:23)
[2016-11-08] MEDS: LEVOFLOXACIN / D5W 750 MG in PREMIXED IN D5W 150 ML IV SCH (06:23)
[2016-11-08 06:45] LABS: BASO % 0.1 %; BASO ABS # 0.02 K/uL (0-0.2); COMPLETE YES; EOS % 0.5 %; HEMATOCRIT 34.4 % (37-47); IG% 1.3 %; LYMPH % 9.8 %; LYMPH ABS # 1.33 K/uL (1.2-3.4); MEAN CORPUSCULAR HEMOGLOBIN 30.7 pg (25-34); MEAN CORPUSCULAR HGB CONC 32.3 g/dl (32-36); MEAN PLATELET VOLUME 10.9 fL (7.4-10.4); MONO % 13.6 %; NEUT % 74.7 %; PLATELET COUNT 216 K/uL (130-400); RED BLOOD COUNT 3.62 M/uL (4.2-5.4); WHITE BLOOD COUNT 13.64 K/uL (4.8-10.8)
[2016-11-08 07:04] VITALS: BP 110/57; PULSE 108; TEMP 37.5; O2SAT 95
[2016-11-08 07:05] LABS: ESTIMATED AVERAGE GLUCOSE 126 mg/dl; HA1C FLAG Normal (Normal)
--- NOTE | 2016-11-08 07:53 | Anesthesiology Progress Note ---
Anesthesia Post Op Note Date & Time Nov 08, 2016 at 07:52 Vital Signs Pain Intensity: 10.0 Vital Signs Past 12 Hours Date Time Temp Pulse Resp B/P (MAP) Pulse Ox O2 Delivery O2 Flow Rate FiO2 11/08/16 07:04 37.5 108 16 110/57 (74) 95 Room Air 11/08/16 03:25 36.7 126 21 134/76 (95) 90 Room Air 11/07/16 23:53 36.4 98 20 116/76 (89) 97 Room Air 11/07/16 23:30 Room Air 11/07/16 21:13 102 133/85 (101) 11/07/16 20:33 36.6 121 18 97/65 (76) 93 Room Air Notes Mental Status: alert / awake / arousable, participated in evaluation Anesthetic Complications: no major complications apparent
[2016-11-08] MEDS: CLINDAMYCIN IV 300 MG in DEXTROSE 5% 50ML 50 ML IV SCH ×3 (08:30→23:44)
[2016-11-08] MEDS: DOCUSATE SODIUM 100 MG CAP PO SCH (08:33)
[2016-11-08] MEDS: PANTOprazole SOD 40 MG TAB PO SCH (08:34)
[2016-11-08] MEDS: POTASSIUM CHLORIDE 20 MEQ TABCR PO SCH (08:34)
[2016-11-08] MEDS: HYDROCORTISONE 10 MG TAB PO SCH ×2 (08:34→17:22)
[2016-11-08] MEDS: MULTIVITAMIN TAB PO SCH (08:35)
[2016-11-08] MEDS: INSULIN ASPART 100 UNITS/ML 3 ML PEN SC SCH ×4 (08:39→20:30)
[2016-11-08] MEDS: D5W AND 1/2NSS 1,000 ML IV SCH ×2 (09:43→20:40)
--- NOTE | 2016-11-08 09:55 | Surgery Progress Note ---
Surgery Progress Note Date of Service Nov 08, 2016. Subjective Post OP Day: 1 + feeling well F/U S/P lap yamileth, pt is stable, no nausea, no vomiting, good control pain, Objective Vital Signs: Date Time Temp Pulse Resp B/P (MAP) Pulse Ox O2 Delivery O2 Flow Rate FiO2 11/08/16 07:40 Room Air 11/08/16 07:04 37.5 108 16 110/57 (74) 95 Room Air 11/08/16 03:25 36.7 126 21 134/76 (95) 90 Room Air 11/07/16 23:53 36.4 98 20 116/76 (89) 97 Room Air 11/07/16 23:30 Room Air 11/07/16 21:13 102 133/85 (101) 11/07/16 20:33 36.6 121 18 97/65 (76) 93 Room Air 11/07/16 16:15 36.3 103 18 140/87 (104) 99 Room Air 11/07/16 15:40 Room Air 11/07/16 12:27 36.4 96 18 120/80 (93) 100 2.0 11/07/16 11:42 100 16 125/80 (95) 97 Nasal Cannula 2.0 11/07/16 10:36 98 Nasal Cannula 2.0 11/07/16 10:30 36.3 89 16 106/70 (82) 98 Nasal Cannula 2.0 11/07/16 10:20 36.2 88 18 120/66 100 Nasal Cannula 2 11/07/16 10:10 88 18 115/70 100 Nasal Cannula 2 11/07/16 10:00 86 18 119/78 100 Oxymask 10 General Appearance: WD/WN, no apparent distress Head: normocephalic Neck: supple, no JVD Respiratory/Chest: chest non-tender, lungs clear Cardiovascular: regular rate, rhythm, no edema, no JVD Abdomen: normal bowel sounds, soft, + tenderness (incision pain, no rebound pain, ) Incision(s): clean, dry, intact Extremities: normal range of motion, non-tender, normal inspection Laboratory Results: Results Past 24 Hours Test 11/07/16 11:57 11/07/16 15:34 11/07/16 17:13 11/07/16 20:40 Range/Units Bedside Glucose 91 171 171 70-90 mg/dl White Blood Count 16.22 4.8-10.8 K/uL Red Blood Count 3.89 4.2-5.4 M/uL Hemoglobin 12.3 12.0-16.0 g/dL Hematocrit 36.9 37-47 % Mean Corpuscular Volume 94.9 80-100 fL Mean Corpuscular Hemoglobin 31.6 25-34 pg Mean Corpuscular Hemoglobin Concent 33.3 32-36 g/dl Platelet Count 216 130-400 K/uL Mean Platelet Volume 10.8 7.4-10.4 fL Neutrophils (%) (Auto) 80.7 % Lymphocytes (%) (Auto) 4.9 % Monocytes (%) (Auto) 12.3 % Eosinophils (%) (Auto) 0.4 % Basophils (%) (Auto) 0.2 % Neutrophils # (Auto) 13.07 1.4-6.5 K/uL Lymphocytes # (Auto) 0.80 1.2-3.4 K/uL Monocytes # (Auto) 2.00 0.11-0.59 K/uL Eosinophils # (Auto) 0.07 0-0.5 K/uL Basophils # (Auto) 0.03 0-0.2 K/uL RDW Standard Deviation 62.1 36.4-46.3 fL RDW Coefficient of Variation 18.0 11.5-14.5 % Immature Granulocyte % (Auto) 1.5 % Immature Granulocyte # (Auto) 0.25 0.00-0.02 K/uL Sodium Level 146 136-145 mmol/L Potassium Level 3.8 3.5-5.1 mmol/L Chloride Level 115 98-107 mmol/L Carbon Dioxide Level 22 21-32 mmol/L Anion Gap 9.0 3-11 mmol/L Blood Urea Nitrogen 14 7-18 mg/dl Creatinine 1.30 0.60-1.20 mg/dl Est Creatinine Clear Calc Drug Dose 34.0 ml/min Estimated GFR () 44.9 Estimated GFR (Non- 38.7 BUN/Creatinine Ratio 10.7 -20 Random Glucose 176 70-99 mg/dl Estimated Average Glucose 126 mg/dl Hemoglobin A1c 6.0 4.5-5.6 % Calcium Level 8.7 8.5-10.1 mg/dl Magnesium Level 1.9 1.8-2.4 mg/dl Test 11/08/16 05:54 Range/Units White Blood Count 13.64 4.8-10.8 K/uL Red Blood Count 3.62 4.2-5.4 M/uL Hemoglobin 11.1 12.0-16.0 g/dL Hematocrit 34.4 37-47 % Mean Corpuscular Volume 95.0 80-100 fL Mean Corpuscular Hemoglobin 30.7 25-34 pg Mean Corpuscular Hemoglobin Concent 32.3 32-36 g/dl Platelet Count 216 130-400 K/uL Mean Platelet Volume 10.9 7.4-10.4 fL Neutrophils (%) (Auto) 74.7 % Lymphocytes (%) (Auto) 9.8 % Monocytes (%) (Auto) 13.6 % Eosinophils (%) (Auto) 0.5 % Basophils (%) (Auto) 0.1 % Neutrophils # (Auto) 10.19 1.4-6.5 K/uL Lymphocytes # (Auto) 1.33 1.2-3.4 K/uL Monocytes # (Auto) 1.85 0.11-0.59 K/uL Eosinophils # (Auto) 0.07 0-0.5 K/uL Basophils # (Auto) 0.02 0-0.2 K/uL RDW Standard Deviation 62.8 36.4-46.3 fL RDW Coefficient of Variation 18.1 11.5-14.5 % Immature Granulocyte % (Auto) 1.3 % Immature Granulocyte # (Auto) 0.18 0.00-0.02 K/uL Nucleated RBC Absolute Count (auto) 0.02 0-0 K/uL Nucleated Red Blood Cells % 0.1 % Assessment & Plan F/U S/P lap yamileth continue v antibiotic GI doctor consult possible remove CBD stent, will F/U
[2016-11-08 15:06] VITALS: BP 100/64; PULSE 104; TEMP 37.3; O2SAT 93
[2016-11-08] MEDS: ACETAMINOPHEN IV 100 ML IV PRN (17:04)
[2016-11-08] MEDS: LATANOPROST 0.005% OP SOLN 2.5 ML BTL OPB SCH (20:40)
[2016-11-08] MEDS: DESMOPRESSIN ACETATE 0.1 MG TAB PO SCH (20:40)
[2016-11-08 23:28] VITALS: BP 125/66; PULSE 88; TEMP 36.8; O2SAT 94
[2016-11-09] MEDS: LEVOTHYROXINE 125 MCG TAB PO SCH (05:27)
[2016-11-09 06:42] LABS: BASO % 0.2 %; BASO ABS # 0.02 K/uL (0-0.2); COMPLETE YES; EOS % 1.5 %; HEMATOCRIT 31.3 % (37-47); IG% 1.6 %; MEAN CELL VOLUME 92.6 fL (80-100); MEAN CORPUSCULAR HEMOGLOBIN 30.5 pg (25-34); MEAN CORPUSCULAR HGB CONC 32.9 g/dl (32-36); MEAN PLATELET VOLUME 10.5 fL (7.4-10.4); MONO % 10.6 %; NEUT % 72.1 %; PLATELET COUNT 178 K/uL (130-400); RED BLOOD COUNT 3.38 M/uL (4.2-5.4); WHITE BLOOD COUNT 12.11 K/uL (4.8-10.8)
--- NOTE | 2016-11-09 08:18 | Progress Note ---
Subjective Date of Service: Nov 09, 2016. Subjective Pt evaluation today including: conversation w/ patient, conversation w/ family , physical exam, chart review, lab review, review of studies, review of inpatient medication list doing well, sitting up in chair, pleasant, conversational, Problem List Medical Problems: (1) Acute kidney injury Status: Acute (2) VERO (acute kidney injury) Status: Acute (3) Altered mental status Status: Acute (4) Altered mental status Status: Acute (5) Altered mental status Status: Acute (6) Altered mental status Status: Acute (7) Altered mental status Status: Acute (8) Ascending cholangitis Status: Acute (9) Atrial fibrillation Status: Acute (10) Dehydration Status: Acute (11) Dehydration Status: Acute (12) Dysarthria Status: Acute (13) Hearing voices Status: Acute (14) Hydronephrosis Status: Acute (15) Hydronephrosis Status: Acute (16) Kidney stone Status: Acute (17) Leukocytosis Status: Acute (18) Medication reaction Status: Acute (19) Nausea & vomiting Status: Acute (20) Pleural effusion Status: Acute (21) Right ureteral calculus Status: Acute (22) RUQ abdominal pain Status: Acute (23) Sepsis Status: Acute (24) Sepsis Status: Acute (25) Urinary tract infection Status: Acute Review of Systems Constitutional: No fever, No chills, No sweats, No weight loss, No weakness, No fatigue, No problem reported Eyes: No worsening of vision, No eye pain, No redness, No discharge, No diplopia ENT: No hearing loss, No unusual epistaxis, No nasal symptoms, No sore throat, No tinnitus, No dental problems, No trouble swallowing Respiratory: No cough, No sputum, No wheezing, No shortness of breath, No dyspnea on exertion, No dyspnea at rest, No hemoptysis Cardiac: No chest pain, No orthopnea, No PND, No edema, No claudication, No palpitations Abdomen: + pain (mild in RUQ), No nausea, No vomiting, No diarrhea, No constipation Musculoskeletal: No joint pain, No muscle pain, No swelling, No calf pain Female : No dysuria, No urinary frequency, No hematuria, No incontinence, No abnormal vaginal bleeding, No vaginal discharge Neurologic: No memory loss, No paralysis, No weakness, No numbness/tingling, No vertigo, No balance problems Psychiatric: No depression symptoms, No anhedonism, No anxiety, No insomnia, No substance abuse Heme: No abnormal bleeding/bruising, No clotting problems, No swollen lymph nodes, No night sweats Endo: No fatigue, No excessive thirst, No excessive urination Skin: No rash, No itch, No new/changing skin lesions, No color change, No bleeding Objective Vital Signs Date Time Temp Pulse Resp B/P (MAP) Pulse Ox O2 Delivery O2 Flow Rate FiO2 11/09/16 07:15 Room Air 11/08/16 23:45 Room Air 11/08/16 23:28 36.8 88 20 125/66 (85) 94 Room Air 11/08/16 15:30 Room Air 11/08/16 15:06 37.3 104 18 100/64 (76) 93 Room Air Physical Exam General Appearance: WD/WN, no apparent distress Eyes: normal inspection, PERRL, EOMI, sclerae normal ENT: normal ENT inspection, hearing grossly normal, pharynx normal Neck: supple, no adenopathy, thyroid normal, no JVD, no carotid bruits, trachea midline Respiratory/Chest: chest non-tender, lungs clear, normal breath sounds, no respiratory distress, no accessory muscle use Cardiovascular: regular rate, rhythm, no edema, no gallop, no JVD, no murmur Abdomen: normal bowel sounds, non tender, soft, no organomegaly, no pulsatile mass Extremities: normal range of motion, non-tender, normal inspection, no pedal edema, no calf tenderness, normal capillary refill, pelvis stable Neurologic/Psychiatric: table inspector II-XII nml as tested, no motor/sensory deficits, alert, normal mood/affect, oriented x 3 Skin: normal color, warm/dry, no rash Lymphatic: no adenopathy Laboratory Results Last 24 Hours Test 11/08/16 11:46 11/08/16 12:04 11/08/16 17:25 11/08/16 20:24 Bedside Glucose 119 mg/dl 118 mg/dl 137 mg/dl 138 mg/dl Test 11/09/16 06:20 11/09/16 08:01 White Blood Count 12.11 K/uL Red Blood Count 3.38 M/uL Hemoglobin 10.3 g/dL Hematocrit 31.3 % Mean Corpuscular Volume 92.6 fL Mean Corpuscular Hemoglobin 30.5 pg Mean Corpuscular Hemoglobin Concent 32.9 g/dl Platelet Count 178 K/uL Mean Platelet Volume 10.5 fL Neutrophils (%) (Auto) 72.1 % Lymphocytes (%) (Auto) 14.0 % Monocytes (%) (Auto) 10.6 % Eosinophils (%) (Auto) 1.5 % Basophils (%) (Auto) 0.2 % Neutrophils # (Auto) 8.74 K/uL Lymphocytes # (Auto) 1.70 K/uL Monocytes # (Auto) 1.28 K/uL Eosinophils # (Auto) 0.18 K/uL Basophils # (Auto) 0.02 K/uL RDW Standard Deviation 57.5 fL RDW Coefficient of Variation 17.0 % Immature Granulocyte % (Auto) 1.6 % Immature Granulocyte # (Auto) 0.19 K/uL Bedside Glucose 80 mg/dl Assessment and Plan 81 year old female admitted on 11/06/2016 with with possible chronic cholecystitis with intermittent RUQ abdominal pain that began a couple of days ago. was in the hospital last month for her gallbladder, received a stent, was planning on removing it in 3 months. Today patient had laparoscopic cholecystectomy Patient has past medical history include acute cholecystitis, cholelithiasis, depression, diabetic insipidus, GERD, dyslipidemia, CAD Acute on chronic cholecystitis with intermittent RUQ abdominal pain upon admission Acute cholecystitis, Cholelithiasis and gall bladder sludge s/p Laparoscopic Cholecystectomy on 11/07/2016, POD1, stable , improving U/S study-IMPRESSION: 1. Cholelithiasis and gallbladder sludge. No significant gallbladder distention or convincing evidence of cholecystitis. No biliary ductal dilatation. Notably, ultrasound may be normal in the setting of cholangitis, which is not excluded. 2. Cortical thinning of the right kidney could suggest chronic medical renal disease. multiple times RUQ pain, cholecystitis, with gallstones, pt and want to do cholecystectomy, Surgeon is consulted, laparoscopic cholecystectomy was done Continue IV fluid and IV antibiotic, and supportive care, Has changed full admission and PT OT evaluation and treatment ordered pt has ERCP w/ stent on 10/09/2016 , planned to removal in 6 weeks, will consult [facility]OW[facility], Dr. salter, this is patient family's request called , updated him pt's conditions, and care plan will talk to surgeon about option of oral abx manager enrollment for discharge plan GI and DVT prophylaxis is covered this note is for 11/08/2016 Continued [facility] stay due to: multiple IV medications needed Discharge planning: home
[2016-11-09 08:25] LABS: CREATININE 0.93 mg/dl (0.60-1.20)
[2016-11-09 08:26] LABS: BUN/CREATININE RATIO 7.7 (10-20); CALCIUM 7.4 mg/dl (8.5-10.1); MAGNESIUM 1.7 mg/dl (1.8-2.4); POTASSIUM 3.3 mmol/L (3.5-5.1)
[2016-11-09] MEDS: CLINDAMYCIN IV 300 MG in DEXTROSE 5% 50ML 50 ML IV SCH (08:39)
[2016-11-09] MEDS: PANTOprazole SOD 40 MG TAB PO SCH (08:41)
[2016-11-09] MEDS: MULTIVITAMIN TAB PO SCH (08:41)
[2016-11-09] MEDS: POTASSIUM CHLORIDE 20 MEQ TABCR PO SCH (08:41)
[2016-11-09] MEDS: DOCUSATE SODIUM 100 MG CAP PO SCH (08:41)
[2016-11-09] MEDS: HYDROCORTISONE 10 MG TAB PO SCH ×2 (08:42→17:29)
[2016-11-09] MEDS: INSULIN ASPART 100 UNITS/ML 3 ML PEN SC SCH ×4 (08:59→20:40)
[2016-11-09] MEDS ORDERED: NURSING VERBAL MED ORDER ONE ×3 (09:00)
[2016-11-09] MEDS ORDERED: POLYETHYLENE (MIRALAX) 17 GM PACK PO SCH (09:30)
[2016-11-09] MEDS ORDERED: POLYETHYLENE (MIRALAX) 17 GM PACK PO PRN (09:30)
[2016-11-09] MEDS ORDERED: MAGNESIUM SULFATE 1GM / D5W 1 GM in PREMIXED IN D5W 100 ML IV SCH (10:00)
--- NOTE | 2016-11-09 10:00 | Surgery Progress Note ---
Surgery Progress Note Date of Service Nov 09, 2016. Subjective Post OP Day: 2 + feeling well pt is doing better, she tolerated diet, no vomiting, no fever Objective Vital Signs: Date Time Temp Pulse Resp B/P (MAP) Pulse Ox O2 Delivery O2 Flow Rate FiO2 11/09/16 07:15 Room Air 11/08/16 23:45 Room Air 11/08/16 23:28 36.8 88 20 125/66 (85) 94 Room Air 11/08/16 15:30 Room Air 11/08/16 15:06 37.3 104 18 100/64 (76) 93 Room Air General Appearance: WD/WN, no apparent distress Head: normocephalic Neck: supple, no JVD Respiratory/Chest: chest non-tender, lungs clear Cardiovascular: regular rate, rhythm, no edema Abdomen: normal bowel sounds, non tender, non distended, soft Incision(s): clean, dry, intact Extremities: normal range of motion, non-tender, normal inspection Laboratory Results: Results Past 24 Hours Test 11/08/16 11:46 11/08/16 12:04 11/08/16 17:25 11/08/16 20:24 Range/Units Bedside Glucose 119 118 137 138 70-90 mg/dl Test 11/09/16 06:20 11/09/16 08:01 Range/Units White Blood Count 12.11 4.8-10.8 K/uL Red Blood Count 3.38 4.2-5.4 M/uL Hemoglobin 10.3 12.0-16.0 g/dL Hematocrit 31.3 37-47 % Mean Corpuscular Volume 92.6 80-100 fL Mean Corpuscular Hemoglobin 30.5 25-34 pg Mean Corpuscular Hemoglobin Concent 32.9 32-36 g/dl Platelet Count 178 130-400 K/uL Mean Platelet Volume 10.5 7.4-10.4 fL Neutrophils (%) (Auto) 72.1 % Lymphocytes (%) (Auto) 14.0 % Monocytes (%) (Auto) 10.6 % Eosinophils (%) (Auto) 1.5 % Basophils (%) (Auto) 0.2 % Neutrophils # (Auto) 8.74 1.4-6.5 K/uL Lymphocytes # (Auto) 1.70 1.2-3.4 K/uL Monocytes # (Auto) 1.28 0.11-0.59 K/uL Eosinophils # (Auto) 0.18 0-0.5 K/uL Basophils # (Auto) 0.02 0-0.2 K/uL RDW Standard Deviation 57.5 36.4-46.3 fL RDW Coefficient of Variation 17.0 11.5-14.5 % Immature Granulocyte % (Auto) 1.6 % Immature Granulocyte # (Auto) 0.19 0.00-0.02 K/uL Sodium Level 134 136-145 mmol/L Potassium Level 3.3 3.5-5.1 mmol/L Chloride Level 102 98-107 mmol/L Carbon Dioxide Level 26 21-32 mmol/L Anion Gap 6.0 3-11 mmol/L Blood Urea Nitrogen 7 7-18 mg/dl Creatinine 0.93 0.60-1.20 mg/dl Est Creatinine Clear Calc Drug Dose 47.5 ml/min Estimated GFR () 67.3 Estimated GFR (Non- 58.0 BUN/Creatinine Ratio 7.7 10-20 Random Glucose 77 70-99 mg/dl Calcium Level 7.4 8.5-10.1 mg/dl Magnesium Level 1.7 1.8-2.4 mg/dl Bedside Glucose 80 70-90 mg/dl Assessment & Plan F/U S/P lap yamileth continue v antibiotic GI doctor consult possible remove CBD stent, will F/U 11/09/2016 F/P shelton carson pt is doing better, may D/C home tomorrow keep all dressing on for 3 days, she can take a shower on 11/12/2016. follow up me 1 week, , po antibiotic for 1 week, I sign off today, please call me if need me, thanks, F/U S/P lap yamileth continue v antibiotic GI doctor consult possible remove CBD stent, will F/U
[2016-11-09] MEDS: MAGNESIUM OXIDE 400 MG TAB PO SCH ×2 (10:15→20:51)
[2016-11-09] MEDS: CLINDAMYCIN HCL 150 MG CAP PO SCH ×2 (14:14→20:51)
[2016-11-09 14:52] VITALS: BP 112/75; PULSE 94; TEMP 36.9; O2SAT 96
[2016-11-09] MEDS: DESMOPRESSIN ACETATE 0.1 MG TAB PO SCH (20:51)
[2016-11-09] MEDS: LATANOPROST 0.005% OP SOLN 2.5 ML BTL OPB SCH (20:51)
[2016-11-09 22:59] VITALS: BP 114/76; PULSE 81; TEMP 36.7; O2SAT 93
[2016-11-10] MEDS: LEVOTHYROXINE 125 MCG TAB PO SCH (05:28)
[2016-11-10 07:30] VITALS: BP 126/80; PULSE 74; TEMP 37.1; O2SAT 96
[2016-11-10 08:00] VITALS: O2SAT 96
[2016-11-10 08:14] LABS: BASO % 0.2 %; BASO ABS # 0.02 K/uL (0-0.2); COMPLETE YES; EOS % 2.7 %; IG% 1.4 %; LYMPH % 16.3 %; LYMPH ABS # 1.63 K/uL (1.2-3.4); MEAN CELL VOLUME 89.8 fL (80-100); MEAN CORPUSCULAR HEMOGLOBIN 30.7 pg (25-34); MEAN CORPUSCULAR HGB CONC 34.1 g/dl (32-36); MEAN PLATELET VOLUME 10.3 fL (7.4-10.4); MONO % 10.1 %; NEUT % 69.3 %; PLATELET COUNT 168 K/uL (130-400); RED BLOOD COUNT 3.23 M/uL (4.2-5.4); WHITE BLOOD COUNT 9.97 K/uL (4.8-10.8)
[2016-11-10 08:53] LABS: BUN/CREATININE RATIO 8.6 (10-20); CALCIUM 7.4 mg/dl (8.5-10.1); CREATININE 0.72 mg/dl (0.60-1.20); MAGNESIUM 1.9 mg/dl (1.8-2.4); POTASSIUM 3.2 mmol/L (3.5-5.1)
[2016-11-10] MEDS: INSULIN ASPART 100 UNITS/ML 3 ML PEN SC SCH ×4 (09:21→21:00)
[2016-11-10] MEDS: CLINDAMYCIN HCL 150 MG CAP PO SCH ×3 (09:22→21:24)
[2016-11-10] MEDS: PANTOprazole SOD 40 MG TAB PO SCH (09:23)
[2016-11-10] MEDS: MAGNESIUM OXIDE 400 MG TAB PO SCH ×2 (09:23→21:25)
[2016-11-10] MEDS: HYDROCORTISONE 10 MG TAB PO SCH ×2 (09:24→17:45)
[2016-11-10] MEDS: POTASSIUM CHLORIDE 20 MEQ TABCR PO SCH (09:25)
[2016-11-10] MEDS: MULTIVITAMIN TAB PO SCH (09:25)
[2016-11-10] MEDS: DOCUSATE SODIUM 100 MG CAP PO SCH (09:25)
--- NOTE | 2016-11-10 12:39 | Progress Note ---
Subjective Date of Service: Nov 10, 2016. Subjective Pt evaluation today including: conversation w/ patient, conversation w/ family , physical exam, chart review, lab review, review of studies, review of inpatient medication list Sitting up in chair, reports generally feeling better and then yesterday, has bowel movement overnight, was eating breakfast first, denied nausea vomiting, deny diarrhea, deny fever and chill Problem List Medical Problems: (1) Acute kidney injury Status: Acute (2) VERO (acute kidney injury) Status: Acute (3) Altered mental status Status: Acute (4) Altered mental status Status: Acute (5) Altered mental status Status: Acute (6) Altered mental status Status: Acute (7) Altered mental status Status: Acute (8) Ascending cholangitis Status: Acute (9) Atrial fibrillation Status: Acute (10) Dehydration Status: Acute (11) Dehydration Status: Acute (12) Dysarthria Status: Acute (13) Hearing voices Status: Acute (14) Hydronephrosis Status: Acute (15) Hydronephrosis Status: Acute (16) Kidney stone Status: Acute (17) Leukocytosis Status: Acute (18) Medication reaction Status: Acute (19) Nausea & vomiting Status: Acute (20) Pleural effusion Status: Acute (21) Right ureteral calculus Status: Acute (22) RUQ abdominal pain Status: Acute (23) Sepsis Status: Acute (24) Sepsis Status: Acute (25) Urinary tract infection Status: Acute Review of Systems Constitutional: + weakness, + fatigue, No fever, No chills, No sweats, No weight loss, No problem reported Eyes: No worsening of vision, No eye pain, No redness, No discharge, No diplopia ENT: No hearing loss, No unusual epistaxis, No nasal symptoms, No sore throat, No tinnitus, No dental problems, No trouble swallowing Respiratory: No cough, No sputum, No wheezing, No shortness of breath, No dyspnea on exertion, No dyspnea at rest, No hemoptysis Cardiac: No chest pain, No orthopnea, No PND, No edema, No claudication, No palpitations Abdomen: No pain, No nausea, No vomiting, No diarrhea, No constipation Musculoskeletal: No joint pain, No muscle pain, No swelling, No calf pain Female : No dysuria, No urinary frequency, No hematuria, No incontinence, No abnormal vaginal bleeding, No vaginal discharge Neurologic: No memory loss, No paralysis, No weakness, No numbness/tingling, No vertigo, No balance problems Psychiatric: No depression symptoms, No anhedonism, No anxiety, No insomnia, No substance abuse Heme: No abnormal bleeding/bruising, No clotting problems, No swollen lymph nodes, No night sweats Endo: No fatigue, No excessive thirst, No excessive urination Skin: No rash, No itch, No new/changing skin lesions, No color change, No bleeding Objective Vital Signs Date Time Temp Pulse Resp B/P (MAP) Pulse Ox O2 Delivery O2 Flow Rate FiO2 11/10/16 08:00 96 Room Air 2.0 11/10/16 07:30 37.1 74 18 126/80 (95) 96 Room Air 11/09/16 23:45 Room Air 11/09/16 22:59 36.7 81 18 114/76 (89) 93 Room Air 11/09/16 15:20 Room Air 11/09/16 14:52 36.9 94 18 112/75 (87) 96 Room Air Physical Exam General Appearance: WD/WN, no apparent distress, + pertinent finding (pleasant conversational) Eyes: normal inspection, PERRL, EOMI, sclerae normal ENT: normal ENT inspection, hearing grossly normal, pharynx normal Neck: supple, no adenopathy, thyroid normal, no JVD, no carotid bruits, trachea midline Respiratory/Chest: chest non-tender, normal breath sounds, no respiratory distress, no accessory muscle use Cardiovascular: regular rate, rhythm, no edema, no gallop, no JVD, no murmur Abdomen: normal bowel sounds, non tender, soft, no organomegaly, no pulsatile mass, + pertinent finding (local abdominal tiny surgical incision is in distress , no tender) Extremities: normal range of motion, non-tender, normal inspection, no pedal edema, no calf tenderness, normal capillary refill, pelvis stable 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, no motor/sensory deficits, alert, normal mood/affect, oriented x 3 Skin: normal color, warm/dry, no rash Lymphatic: no adenopathy Laboratory Results Last 24 Hours Test 11/09/16 17:02 11/09/16 20:23 11/10/16 07:58 11/10/16 08:09 Bedside Glucose 151 mg/dl 123 mg/dl 87 mg/dl White Blood Count 9.97 K/uL Red Blood Count 3.23 M/uL Hemoglobin 9.9 g/dL Hematocrit 29.0 % Mean Corpuscular Volume 89.8 fL Mean Corpuscular Hemoglobin 30.7 pg Mean Corpuscular Hemoglobin Concent 34.1 g/dl Platelet Count 168 K/uL Mean Platelet Volume 10.3 fL Neutrophils (%) (Auto) 69.3 % Lymphocytes (%) (Auto) 16.3 % Monocytes (%) (Auto) 10.1 % Eosinophils (%) (Auto) 2.7 % Basophils (%) (Auto) 0.2 % Neutrophils # (Auto) 6.90 K/uL Lymphocytes # (Auto) 1.63 K/uL Monocytes # (Auto) 1.01 K/uL Eosinophils # (Auto) 0.27 K/uL Basophils # (Auto) 0.02 K/uL RDW Standard Deviation 52.9 fL RDW Coefficient of Variation 16.1 % Immature Granulocyte % (Auto) 1.4 % Immature Granulocyte # (Auto) 0.14 K/uL Sodium Level 129 mmol/L Potassium Level 3.2 mmol/L Chloride Level 99 mmol/L Carbon Dioxide Level 24 mmol/L Anion Gap 6.0 mmol/L Blood Urea Nitrogen 6 mg/dl Creatinine 0.72 mg/dl Est Creatinine Clear Calc Drug Dose 61.4 ml/min Estimated GFR () 91.7 Estimated GFR (Non- 79.1 BUN/Creatinine Ratio 8.6 Random Glucose 76 mg/dl Calcium Level 7.4 mg/dl Magnesium Level 1.9 mg/dl Test 11/10/16 12:03 11/10/16 12:06 Bedside Glucose 122 mg/dl Assessment and Plan 81 year old female admitted on 11/06/2016 with with possible chronic cholecystitis with intermittent RUQ abdominal pain that began a couple of days ago. was in the hospital last month for her gallbladder, received a stent, was planning on removing it in 3 months. Today patient had laparoscopic cholecystectomy Patient has past medical history include acute cholecystitis, cholelithiasis, depression, diabetic insipidus, GERD, dyslipidemia, CAD Acute on chronic cholecystitis with intermittent RUQ abdominal pain upon admission Acute cholecystitis, Cholelithiasis and gall bladder sludge s/p Laparoscopic Cholecystectomy on 11/07/2016, POD2, stable , improving U/S study-IMPRESSION: 1. Cholelithiasis and gallbladder sludge. No significant gallbladder distention or convincing evidence of cholecystitis. No biliary ductal dilatation. Notably, ultrasound may be normal in the setting of cholangitis, which is not excluded. 2. Cortical thinning of the right kidney could suggest chronic medical renal disease. multiple times RUQ pain, cholecystitis, with gallstones, pt and want to do cholecystectomy, Surgeon is consulted, laparoscopic cholecystectomy was done Was on IV fluid was discontinued , and IV antibiotic, will change to oral antibiotics, and supportive care Has changed full admission and PT OT evaluation and treatment ordered pt has ERCP w/ stent on 10/09/2016 , planned to removal in 6 weeks, will consult [facility], Dr. salter, this is patient family's request talked to surgeon about option of oral abx, recommend total 7 days hyponatremia and hypokinemia, is new, replace and follow-up, consult patient of the diet, such as potassium rich diet and okay to use table salt health information manager for discharge plan GI and DVT prophylaxis is covered Planning discharge home tomorrow Discharge planning: home
--- NOTE | 2016-11-10 12:41 | Progress Note ---
Subjective Date of Service: Nov 10, 2016. Subjective Pt evaluation today including: conversation w/ patient, conversation w/ family , physical exam, lab review, review of studies, review of inpatient medication list Sitting up in chair, tolerate diet, reported generalized weakness, no other complaint Problem List Medical Problems: (1) Acute kidney injury Status: Acute (2) VERO (acute kidney injury) Status: Acute (3) Altered mental status Status: Acute (4) Altered mental status Status: Acute (5) Altered mental status Status: Acute (6) Altered mental status Status: Acute (7) Altered mental status Status: Acute (8) Ascending cholangitis Status: Acute (9) Atrial fibrillation Status: Acute (10) Dehydration Status: Acute (11) Dehydration Status: Acute (12) Dysarthria Status: Acute (13) Hearing voices Status: Acute (14) Hydronephrosis Status: Acute (15) Hydronephrosis Status: Acute (16) Kidney stone Status: Acute (17) Leukocytosis Status: Acute (18) Medication reaction Status: Acute (19) Nausea & vomiting Status: Acute (20) Pleural effusion Status: Acute (21) Right ureteral calculus Status: Acute (22) RUQ abdominal pain Status: Acute (23) Sepsis Status: Acute (24) Sepsis Status: Acute (25) Urinary tract infection Status: Acute Review of Systems Constitutional: + weakness, + fatigue, No fever, No chills, No sweats, No weight loss, No problem reported Eyes: No worsening of vision, No eye pain, No redness, No discharge, No diplopia ENT: No hearing loss, No unusual epistaxis, No nasal symptoms, No sore throat, No tinnitus, No dental problems, No trouble swallowing Respiratory: No cough, No sputum, No wheezing, No shortness of breath, No dyspnea on exertion, No dyspnea at rest, No hemoptysis Cardiac: No chest pain, No orthopnea, No PND, No edema, No claudication, No palpitations Abdomen: No pain, No nausea, No vomiting, No diarrhea, No constipation Musculoskeletal: No joint pain, No muscle pain, No swelling, No calf pain Female : No dysuria, No urinary frequency, No hematuria, No incontinence, No abnormal vaginal bleeding, No vaginal discharge Neurologic: No memory loss, No paralysis, No weakness, No numbness/tingling, No vertigo, No balance problems Psychiatric: No depression symptoms, No anhedonism, No anxiety, No insomnia, No substance abuse Heme: No abnormal bleeding/bruising, No clotting problems, No swollen lymph nodes, No night sweats Endo: No fatigue, No excessive thirst, No excessive urination Skin: No rash, No itch, No new/changing skin lesions, No color change, No bleeding Objective Vital Signs Date Time Temp Pulse Resp B/P (MAP) Pulse Ox O2 Delivery O2 Flow Rate FiO2 11/10/16 08:00 96 Room Air 2.0 11/10/16 07:30 37.1 74 18 126/80 (95) 96 Room Air 11/09/16 23:45 Room Air 11/09/16 22:59 36.7 81 18 114/76 (89) 93 Room Air 11/09/16 15:20 Room Air 11/09/16 14:52 36.9 94 18 112/75 (87) 96 Room Air Physical Exam General Appearance: WD/WN, no apparent distress, + pertinent finding Eyes: normal inspection, PERRL, EOMI, sclerae normal ENT: normal ENT inspection, hearing grossly normal, pharynx normal Neck: supple, no adenopathy, thyroid normal, no JVD, no carotid bruits, trachea midline Respiratory/Chest: chest non-tender, lungs clear, normal breath sounds, no respiratory distress, no accessory muscle use Cardiovascular: regular rate, rhythm, no edema, no gallop, no JVD, no murmur Abdomen: normal bowel sounds, non tender, soft, no organomegaly, no pulsatile mass Extremities: normal range of motion, non-tender, normal inspection, no pedal edema, no calf tenderness, normal capillary refill, pelvis stable 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, no motor/sensory deficits, alert, normal mood/affect, oriented x 3 Skin: normal color, warm/dry, no rash Lymphatic: no adenopathy Laboratory Results Last 24 Hours Test 11/09/16 17:02 11/09/16 20:23 11/10/16 07:58 11/10/16 08:09 Bedside Glucose 151 mg/dl 123 mg/dl 87 mg/dl White Blood Count 9.97 K/uL Red Blood Count 3.23 M/uL Hemoglobin 9.9 g/dL Hematocrit 29.0 % Mean Corpuscular Volume 89.8 fL Mean Corpuscular Hemoglobin 30.7 pg Mean Corpuscular Hemoglobin Concent 34.1 g/dl Platelet Count 168 K/uL Mean Platelet Volume 10.3 fL Neutrophils (%) (Auto) 69.3 % Lymphocytes (%) (Auto) 16.3 % Monocytes (%) (Auto) 10.1 % Eosinophils (%) (Auto) 2.7 % Basophils (%) (Auto) 0.2 % Neutrophils # (Auto) 6.90 K/uL Lymphocytes # (Auto) 1.63 K/uL Monocytes # (Auto) 1.01 K/uL Eosinophils # (Auto) 0.27 K/uL Basophils # (Auto) 0.02 K/uL RDW Standard Deviation 52.9 fL RDW Coefficient of Variation 16.1 % Immature Granulocyte % (Auto) 1.4 % Immature Granulocyte # (Auto) 0.14 K/uL Sodium Level 129 mmol/L Potassium Level 3.2 mmol/L Chloride Level 99 mmol/L Carbon Dioxide Level 24 mmol/L Anion Gap 6.0 mmol/L Blood Urea Nitrogen 6 mg/dl Creatinine 0.72 mg/dl Est Creatinine Clear Calc Drug Dose 61.4 ml/min Estimated GFR () 91.7 Estimated GFR (Non- 79.1 BUN/Creatinine Ratio 8.6 Random Glucose 76 mg/dl Calcium Level 7.4 mg/dl Magnesium Level 1.9 mg/dl Test 11/10/16 12:06 Bedside Glucose 122 mg/dl Assessment and Plan 81 year old female admitted on 11/06/2016 with with possible chronic cholecystitis with intermittent RUQ abdominal pain that began a couple of days ago. was in the hospital last month for her gallbladder, received a stent, was planning on removing it in 3 months. Today patient had laparoscopic cholecystectomy Patient has past medical history include acute cholecystitis, cholelithiasis, depression, diabetic insipidus, GERD, dyslipidemia, CAD Acute on chronic cholecystitis with intermittent RUQ abdominal pain upon admission Acute cholecystitis, Cholelithiasis and gall bladder sludge s/p Laparoscopic Cholecystectomy on 11/07/2016, POD2, stable , improving U/S study-IMPRESSION: 1. Cholelithiasis and gallbladder sludge. No significant gallbladder distention or convincing evidence of cholecystitis. No biliary ductal dilatation. Notably, ultrasound may be normal in the setting of cholangitis, which is not excluded. 2. Cortical thinning of the right kidney could suggest chronic medical renal disease. multiple times RUQ pain, cholecystitis, with gallstones, pt and want to do cholecystectomy, Surgeon is consulted, laparoscopic cholecystectomy was done Was on IV fluid was discontinued , and IV antibiotic, changed to oral antibiotics, and supportive care pt has ERCP w/ stent on 10/09/2016 , planned to removal in 6 weeks, will consult [facility], Dr. salter, this is patient family's request talked to surgeon about option of oral abx, recommend total 7 days manager ed for discharge plan GI and DVT prophylaxis is covered Planning discharge home tomorrow This note is for 11/09/2016 Discharge planning: home
[2016-11-10] MEDS ORDERED: POTASSIUM CHLORIDE 20 MEQ TABCR PO ONE (12:45)
[2016-11-10] MEDS: LEVOFLOXACIN 750 MG TAB PO SCH (13:04)
[2016-11-10] MEDS: POTASSIUM CHLR 10 MEQ / WTR 10 MEQ in PREMIXED WATER 100 ML IV SCH ×2 (13:04→15:06)
[2016-11-10 15:05] VITALS: BP 149/85; PULSE 76; TEMP 36.5; O2SAT 96
[2016-11-10] MEDS: LATANOPROST 0.005% OP SOLN 2.5 ML BTL OPB SCH (21:23)
[2016-11-10] MEDS: DESMOPRESSIN ACETATE 0.1 MG TAB PO SCH (21:24)
[2016-11-10 22:57] VITALS: BP 129/76; PULSE 67; TEMP 36.5; O2SAT 90
[2016-11-11] MEDS: HYDROmorphone INJ 0.5 MG/0.5 ML SYR IV PRN (00:38)
[2016-11-11] MEDS: LEVOTHYROXINE 125 MCG TAB PO SCH (05:41)
[2016-11-11 06:57] VITALS: BP 126/85; PULSE 101; TEMP 36.7; O2SAT 94
[2016-11-11 07:40] LABS: BUN/CREATININE RATIO 7.2 (10-20); CALCIUM 7.2 mg/dl (8.5-10.1); CREATININE 0.64 mg/dl (0.60-1.20); MAGNESIUM 1.9 mg/dl (1.8-2.4); POTASSIUM 3.9 mmol/L (3.5-5.1)
[2016-11-11] MEDS ORDERED: ACETAMINOPHEN 325 MG TAB PO PRN (08:00)
[2016-11-11 08:54] LABS: T3 TOTAL 0.58 ng/ml (0.60-1.81); THYROXINE (T4) 11.1 mcg/dl (4.5-10.9)
[2016-11-11] MEDS: INSULIN ASPART 100 UNITS/ML 3 ML PEN SC SCH ×4 (09:33→21:00)
[2016-11-11] MEDS: GLIMEPIRIDE 2 MG TAB PO SCH (09:41)
[2016-11-11] MEDS: CALCIUM 600MG + VIT D 400 IU TAB PO SCH (09:42)
[2016-11-11] MEDS: CALCITRIOL 0.25 MCG CAP PO SCH (09:44)
[2016-11-11] MEDS: LACTOBACILLUS ACIDOPHILUS (FLORANEX) TAB PO SCH (09:45)
[2016-11-11] MEDS: CHOLECALCIFEROL 1000 INTER.UNIT TAB PO SCH (09:45)
[2016-11-11] MEDS: DOCUSATE SODIUM 100 MG CAP PO SCH (09:46)
[2016-11-11] MEDS: CLINDAMYCIN HCL 150 MG CAP PO SCH (09:46)
[2016-11-11] MEDS: HYDROCORTISONE 10 MG TAB PO SCH ×2 (09:52→17:30)
[2016-11-11] MEDS: POTASSIUM CHLORIDE 20 MEQ TABCR PO SCH (09:53)
[2016-11-11] MEDS: MAGNESIUM OXIDE 400 MG TAB PO SCH ×2 (09:54→20:58)
[2016-11-11] MEDS: MULTIVITAMIN TAB PO SCH (09:57)
[2016-11-11] MEDS: AMMONIUM LACTATE 12% LOTION 225 GM BTL EXT SCH (10:01)
[2016-11-11] MEDS: PANTOprazole SOD 40 MG TAB PO SCH (10:23)
[2016-11-11 15:23] VITALS: BP 124/81; PULSE 74; TEMP 36.6; O2SAT 95
--- NOTE | 2016-11-11 15:58 | Progress Note ---
Subjective Date of Service: Nov 11, 2016. Subjective Pt evaluation today including: conversation w/ patient, conversation w/ family , physical exam, chart review, lab review, review of studies, conversation w/ solution consultant, review of inpatient medication list Sitting up in chair, eating breakfast, no complaining, Was have difficulty in sleep last night, Problem List Medical Problems: (1) Acute kidney injury Status: Acute (2) VERO (acute kidney injury) Status: Acute (3) Altered mental status Status: Acute (4) Altered mental status Status: Acute (5) Altered mental status Status: Acute (6) Altered mental status Status: Acute (7) Altered mental status Status: Acute (8) Ascending cholangitis Status: Acute (9) Atrial fibrillation Status: Acute (10) Dehydration Status: Acute (11) Dehydration Status: Acute (12) Dysarthria Status: Acute (13) Hearing voices Status: Acute (14) Hydronephrosis Status: Acute (15) Hydronephrosis Status: Acute (16) Kidney stone Status: Acute (17) Leukocytosis Status: Acute (18) Medication reaction Status: Acute (19) Nausea & vomiting Status: Acute (20) Pleural effusion Status: Acute (21) Right ureteral calculus Status: Acute (22) RUQ abdominal pain Status: Acute (23) Sepsis Status: Acute (24) Sepsis Status: Acute (25) Urinary tract infection Status: Acute Review of Systems Constitutional: + weakness, + fatigue Eyes: No worsening of vision, No eye pain, No redness, No discharge, No diplopia ENT: No hearing loss, No unusual epistaxis, No nasal symptoms, No sore throat, No tinnitus, No dental problems, No trouble swallowing Respiratory: No cough, No sputum, No wheezing, No shortness of breath, No dyspnea on exertion, No dyspnea at rest, No hemoptysis Cardiac: No chest pain, No orthopnea, No PND, No edema, No claudication, No palpitations Abdomen: No pain, No nausea, No vomiting, No diarrhea, No constipation Musculoskeletal: No joint pain, No muscle pain, No swelling, No calf pain Female : No dysuria, No urinary frequency, No hematuria, No incontinence, No abnormal vaginal bleeding, No vaginal discharge Neurologic: No memory loss, No paralysis, No weakness, No numbness/tingling, No vertigo, No balance problems Psychiatric: No depression symptoms, No anhedonism, No anxiety, No insomnia, No substance abuse Heme: No abnormal bleeding/bruising, No clotting problems, No swollen lymph nodes, No night sweats Endo: No fatigue, No excessive thirst, No excessive urination Skin: No rash, No itch, No new/changing skin lesions, No color change, No bleeding Objective Vital Signs Date Time Temp Pulse Resp B/P (MAP) Pulse Ox O2 Delivery O2 Flow Rate FiO2 11/11/16 15:23 36.6 74 18 124/81 (95) 95 Room Air 11/11/16 09:30 Room Air 11/11/16 06:57 36.7 101 18 126/85 (99) 94 Room Air 11/11/16 00:00 Room Air 11/10/16 22:57 36.5 67 18 129/76 (93) 90 Room Air Physical Exam General Appearance: WD/WN, no apparent distress, + pertinent finding (frail, but pleasant) Eyes: normal inspection, PERRL, EOMI, sclerae normal ENT: normal ENT inspection, hearing grossly normal, pharynx normal Neck: supple, no adenopathy, thyroid normal, no JVD, no carotid bruits, trachea midline Respiratory/Chest: chest non-tender, normal breath sounds, no respiratory distress, no accessory muscle use, + decreased breath sounds Cardiovascular: regular rate, rhythm, no edema, no gallop, no JVD, no murmur Abdomen: normal bowel sounds, non tender, soft, no organomegaly, no pulsatile mass Extremities: normal range of motion, non-tender, normal inspection, no pedal edema, no calf tenderness, normal capillary refill, pelvis stable 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, no motor/sensory deficits, alert, normal mood/affect, oriented x 3 Skin: normal color, warm/dry, no rash Lymphatic: no adenopathy Laboratory Results Last 24 Hours Test 11/10/16 17:01 11/10/16 20:17 11/11/16 05:52 11/11/16 07:55 Bedside Glucose 155 mg/dl 131 mg/dl 83 mg/dl Sodium Level 124 mmol/L Potassium Level 3.9 mmol/L Chloride Level 94 mmol/L Carbon Dioxide Level 22 mmol/L Anion Gap 8.0 mmol/L Blood Urea Nitrogen 5 mg/dl Creatinine 0.64 mg/dl Est Creatinine Clear Calc Drug Dose 69.1 ml/min Estimated GFR () 97.7 Estimated GFR (Non- 84.3 BUN/Creatinine Ratio 7.2 Random Glucose 71 mg/dl Calcium Level 7.2 mg/dl Magnesium Level 1.9 mg/dl Test 11/11/16 07:56 11/11/16 11:22 11/11/16 12:02 Osmolality 243 mOsm/kg Free Thyroxine 1.67 ng/dl Thyroxine (T4) 11.1 mcg/dl Free Triiodothyronine 1.63 pg/ml Total Triiodothyronine 0.58 ng/ml Urine Osmolality 416 mOms/kg Bedside Glucose 87 mg/dl Assessment and Plan 81 year old female admitted on 11/06/2016 with with possible chronic cholecystitis with intermittent RUQ abdominal pain that began a couple of days ago. was in the hospital last month for her gallbladder, received a stent, was planning on removing it in 3 months, had laparoscopic cholecystectomy Patient has past medical history include acute cholecystitis, cholelithiasis, depression, diabetic insipidus, GERD, dyslipidemia, CAD Acute on chronic cholecystitis with intermittent RUQ abdominal pain upon admission Acute cholecystitis, Cholelithiasis and gall bladder sludge s/p Laparoscopic Cholecystectomy on 11/07/2016, POD4, stable , improving U/S study-IMPRESSION: 1. Cholelithiasis and gallbladder sludge. No significant gallbladder distention or convincing evidence of cholecystitis. No biliary ductal dilatation. Notably, ultrasound may be normal in the setting of cholangitis, which is not excluded. 2. Cortical thinning of the right kidney could suggest chronic medical renal disease. hx of multiple times RUQ pain, cholecystitis, with gallstones, pt and wanted to do cholecystectomy, Surgeon was consulted, laparoscopic cholecystectomy was done Was on IV fluid was discontinued , and IV antibiotic, changed to oral antibiotics, and supportive care pt has ERCP w/ stent on 10/09/2016 , planned to removal in 6 weeks, will consult Dr. Kurt Juárez, this is patient family's request talked to surgeon about option of oral abx, recommend total 7 days for clindamycin has completed, total 10 days for Levaquin, today is 6 out of 10 Hyponatremia with history of boyd hypopituitarism, central DI , is on desmopressin, sodium is 124 from 129 yesterday, likely from IV fluid after this admission and during the procedure, this is a condition of " Water retention leading to the development of hyponatremia in patients with central DI who are treated with desmopressin " , talked to patient's bank worker Dr. Fung , he recommend "free water restriction" for now, if sodium not getting worse possible this condition can be management at home, he can follow up with patient about this. Patient has strong family support with 24 7 caregiver at home, should be okay to discharge home when condition stable GI and DVT prophylaxis is covered Planning discharge home tomorrow Discharge planning: home
[2016-11-11] MEDS ORDERED: ZOLPIDEM TARTRATE 5 MG TAB PO PRN (16:00)
[2016-11-11] MEDS: LATANOPROST 0.005% OP SOLN 2.5 ML BTL OPB SCH (20:58)
[2016-11-11] MEDS: DESMOPRESSIN ACETATE 0.1 MG TAB PO SCH (20:59)
[2016-11-11 23:26] VITALS: BP 117/72; PULSE 75; TEMP 36.8; O2SAT 97
[2016-11-12] MEDS: LEVOTHYROXINE 125 MCG TAB PO SCH (06:05)
[2016-11-12 06:43] LABS: BUN/CREATININE RATIO 5.9 (10-20); CALCIUM 7.7 mg/dl (8.5-10.1); CREATININE 0.69 mg/dl (0.60-1.20); POTASSIUM 3.6 mmol/L (3.5-5.1)
[2016-11-12 07:34] VITALS: BP 153/80; PULSE 80; TEMP 36.9; O2SAT 96
[2016-11-12] MEDS: INSULIN ASPART 100 UNITS/ML 3 ML PEN SC SCH ×2 (08:59→12:30)
[2016-11-12] MEDS: AMMONIUM LACTATE 12% LOTION 225 GM BTL EXT SCH (09:00)
[2016-11-12] MEDS: CALCIUM 600MG + VIT D 400 IU TAB PO SCH (09:06)
[2016-11-12] MEDS: DOCUSATE SODIUM 100 MG CAP PO SCH (09:06)
[2016-11-12] MEDS: GLIMEPIRIDE 2 MG TAB PO SCH (09:06)
[2016-11-12] MEDS: POTASSIUM CHLORIDE 20 MEQ TABCR PO SCH (09:07)
[2016-11-12] MEDS: LACTOBACILLUS ACIDOPHILUS (FLORANEX) TAB PO SCH (09:07)
[2016-11-12] MEDS: HYDROCORTISONE 10 MG TAB PO SCH (09:07)
[2016-11-12] MEDS: MAGNESIUM OXIDE 400 MG TAB PO SCH (09:08)
[2016-11-12] MEDS: CALCITRIOL 0.25 MCG CAP PO SCH (09:08)
[2016-11-12] MEDS: MULTIVITAMIN TAB PO SCH (09:08)
[2016-11-12] MEDS: CHOLECALCIFEROL 1000 INTER.UNIT TAB PO SCH (09:08)
[2016-11-12] MEDS: PANTOprazole SOD 40 MG TAB PO SCH (09:08)
[2016-11-12] MEDS ORDERED: LVQ750 PO (09:58)
--- NOTE | 2016-11-12 10:06 | Discharge Instructions ---
Discharge Instructions Date of Service Nov 12, 2016. Admission Reason for Admission: Cholelithiasis, Elevated Wbc Count, Ruq Abd Pain Discharge Discharge Diagnosis / Problem: Gallstones and Gallbadder Removal Discharge Goals Goal(s): Decrease discomfort, Improve function, Increase independence Activity Recommendations Activity Limitations: resume your previous activity . Instructions / Follow-Up Instructions / Follow-Up Gallstones and Laparoscopic Cholecystectomy: - You are almost complete with antibiotics. You will have a dose today 11/12 and will take the last dose on 11/14 - you will take this medication every 2 days to protect your kidneys - Plan to remove stent on November 21, 2016 with [facility] - please keep this appointment Low Salt Level: - Continue your medications for your low salt levels and if you have any concerns discuss with your hydropress operator Dr. Fung - For now it is important to due a fluid/water restriction -- RECOMMEND ONLY DRINKING 1500 mL OR LESS - this is about six 8 oz glasses a day or less - You will be provided a prescription to have blood work done in 1-2 days and these results can be sent to your family doctor - you may go to the lab you normally do to have the blood draw Home Medications: - Continue home medications as prescribed Follow-Up: - Please follow-up with your family doctor - we will help get an appointment for you - Please see GI for the sent as previously scheduled - Follow-up with general surgery - Dr. Carter in one week - his number is [phone] Current Hospital Diet Patient's current hospital diet: Diabetes Type 2 Diet Discharge Diet Recommended Diet: Diabetes Type 2 Diet Fluid Restriction: 1500 ml (6 cups) Procedures Procedures Performed: Laparoscopic Cholecystectomy Pending Studies Studies pending at discharge: no Laboratory Results Hemoglobin A1c Test 11/07/16 15:34 Range/Units Estimated Average Glucose 126 mg/dl Hemoglobin A1c 6.0 H 4.5-5.6 % Lipid Panel Test 08/31/16 13:13 Range/Units Triglycerides Level 92 0-150 mg/dl Cholesterol Level 150 0-200 mg/dl HDL Cholesterol 65 mg/dl Cholesterol/HDL Ratio 2.3 LDL Cholesterol, Calculated 67 mg/dl Medical Emergencies . Who to Call and When: Medical Emergencies: If at any time you feel your situation is an emergency, please call 911 immediately. . Non-Emergent Contact Non-Emergency issues call your: Primary Care Provider Call Non-Emergent contact if: you have a fever, your pain is concerning you, you have any medication questions . . "Provider Documentation" section prepared by Danisha Mitchell. . VTE Core Measure Inpt VTE Proph given/why not?: Ernst Herring, SCD's
[2016-11-12] MEDS: LEVOFLOXACIN 750 MG TAB PO SCH (11:14)
[2016-11-12 12:30] VITALS: Ht 160 cm; Wt 77.5 kg
[2016-11-12 13:42] VITALS: BP 153/80; PULSE 80; TEMP 36.9; O2SAT 96
--- NOTE | 2016-11-12 14:28 | Discharge Summary ---
Discharge Summary Date of Service Nov 12, 2016. Discharge Summary Admission Date: Nov 06, 2016 at 12:30 Discharge Date: Nov 12, 2016 Discharge Disposition: Home Principal Diagnosis: Cholecystitis S/P Lap Cholecystectomy Problems/Secondary Diagnoses: 1. T2DM 2. CKD 3. Recurrent UTI 4. Nephrolithiasis 5. Panhypopituitarism 6. Central Diabetes Insipidus 7. HLD 8. Glaucoma 9. Legally Blind 10. Depression 11. GERD 12. R Frontal Lobe Mass Immunizations: Have You Had Influenza Vaccine: No Influenza Vaccine Date: Feb 04, 2010 History of Tetanus Vaccine?: No History of Pneumococcal: YES- IN 2008 History of Hepatitis B Vaccine: No Procedures: GALLBLADDER-ABD LIMITED FINDINGS: Pancreas: Visualized portions of the pancreatic head and body normal. Liver: Grossly normal echogenicity allowing for limited acoustic window. The liver measures 12.9 cm in maximal sagittal dimension. Main portal vein patent with normal directional flow. Biliary: No intrahepatic biliary ductal dilatation. Common bile duct measures up to 4 mm in diameter, unchanged. Hyperechogenicity within the common duct could relate to the reported recently placed common bile duct stent Gallbladder: Minimal gallbladder wall thickening. Sludge and gallstones present. The gallbladder is not significantly distended. Sonographic Lujan's sign negative. Right kidney: Cortical thinning noted. A 1.1 cm simple appearing cyst noted. No hydronephrosis. Ascites: None. IMPRESSION: 1. Cholelithiasis and gallbladder sludge. No significant gallbladder distention or convincing evidence of cholecystitis. No biliary ductal dilatation. Notably, ultrasound may be normal in the setting of cholangitis, which is not excluded. 2. Cortical thinning of the right kidney could suggest chronic medical renal disease. Consultations: 1. General Surgery 2. Gastroenterology 3. PT/OT Medication Reconciliation New Medications: Levofloxacin (Levofloxacin) 750 Mg Tab 750 MG PO Q48H for 1 Day, #1 TAB Take on 11/14. Continued Medications: Acetaminophen (Tylenol) 325 Mg Tab 650 MG PO Q6H PRN for Pain, TAB Alendronate Sodium (Alendronate Sodium) 70 Mg Tab 70 MG PO WK TAKE THIS MEDICATION ONCE WEEKLY 30 TO 60 MINUTES PRIOR TO BREAKFAST OM AM EMPTY STOMACH. DO NOT LIE DOWN AFTER TAKING THIS MEDICATION. Calcitriol (Calcitriol) 0.25 Mcg Cap 0.25 MCG PO DAILY Calcium Carbonate-Cholecalcife (Caltrate 600+D) 1 Tab Tab 1 TAB PO DAILY Chlorthalidone (Hygroton) 25 Mg Tab 12.5 MG PO DAILY Cholecalciferol (Vitamin D-3) 1,000 Unit Tab 1000 INTER.UNIT PO DAILY Desmopressin Acetate (Desmopressin Acetate) 0.1 Mg Tab 0.1 MG PO D, #180 Docusate Sodium (Docusate Sodium) 100 Mg Cap 100 MG PO DAILY Glimepiride (Glimepiride) 1 Mg Tab 1 MG PO DAILY Hydrocortisone (Cortef) 10 Mg Tab 15 MG PO QAM, TAB Hydrocortisone (Cortef) 10 Mg Tab 5 MG PO UD, TAB TAKE HALF A TABET (5 MG) 8 HOURS AFTER MORNING DOSE Lactic Acid (Ammonium Lactate) (Ammonium Lactate) 12 % Lot 1 APPLN TOP UD Latanoprost (Latanoprost) 37 Drops/2.5 Ml Soln 1 DROP OPB HS Levothyroxine Sodium (Levothyroxine Sodium) 125 Mcg Tab 125 MCG PO DAILY Menthol (Topical Analgesic) (Biofreeze) Unknown Strength Gel 1 APPLN TOP UD PRN for Pain APPLY PER PACKAGE DIRECTIONS Multivitamin (Multivitamin) Tab 1 TAB PO DAILY, TAB Omeprazole (Prilosec) 20 Mg Cap 20 MG PO DAILY, CAP Polyethylene Glycol-Propylene (Systane Ultra) 1 Leslie Leslie 1 DROP OP Q4-6 HRS, ML Potassium Chloride Microencaps (Potassium Chloride Er) 20 Meq Tab 20 MEQ PO DAILY Probiotic Product (Align) 4 Mg Cap 1 CAP PO DAILY Sodium Fluoride (Dental) (Sf 5000 Plus) 1.1 % Cre 1 APPLN TOP BID, #102 Discharge Exam Review of Systems: Constitutional: No fever, No chills Eyes: + problem reported (chronic visual deficits - legally blind) ENT: No nasal symptoms, No sore throat, No trouble swallowing Respiratory: No cough, No shortness of breath Cardiovascular: No chest pain Abdomen: + pain (incisional - mild), No nausea, No vomiting Musculoskeletal: No swelling, No calf pain Genitourinary - Female: No dysuria Hematologic / Lymphatic: No abnormal bleeding/bruising Integumentary: No rash Physical Exam: General Appearance: WD/WN, no apparent distress Eyes: sclerae normal ENT: hearing grossly normal Neck: supple, no JVD, trachea midline Respiratory/Chest: lungs clear, normal breath sounds, no respiratory distress, no accessory muscle use Cardiovascular: regular rate, rhythm, no gallop, no murmur Abdomen / GI: normal bowel sounds, non tender, soft, + pertinent finding ( four small surgical incisions well-approximated without visible drainage (RUQ, Epigastric, RLQ, and umbilicus); surround skin without erythema; mild ecchymosis at incision sites) Extremities: no calf tenderness, no pedal edema Neurologic/Psychiatric: alert Skin: normal color, warm/dry Hospital Course ADMISSION: Mrs Valencia is an 81 year old female recently admitted in September for metabolic/Septic encephalopathy in setting acute cholangitis and CBD stones treated with ERCP and multiple IV antibiotics who presents to the ER with recurrence of her RUQ pain for the past 2-3 days. She followed up with surgery as an outpatient and plan was to remove the gall bladder once everything had settled down in around 3 months time. She has been having intermittent RUQ abdominal pain in the evening for the past 2-3 nights. Severity 9/10 at worse it woke her up around 12:27am. She does not feel it is related to any particular food. She denies any alcohol use. She finished the course of Levaquin and metronidazole for cholangitis last week. HOSPITAL COURSE: Ms. Valencia was admitted for increased pain from chronic cholecystitis and is S/P lap yamileth on 11/07 without complication. Her CBD stent remains with plans to remove on 11/21. She was initiated of Clindamycin and finished a six day course. She was also initiated on Levaquin with renal dosing to finish a 10 day course. Incision dressings removed on 11/12 with four surgical incisions that are well-approximated without drainage or surrounding erythema. During admission, patient noted to develop hyponatremia which is chronic due to central diabetes insipidus. Discussed with endocrine with recommendations for fluid restriction of 1500 mL and can be managed at home with current drug regimen. Gave Rx for repeat BMP in 1-2 days to follow Na levels. Patient is hemodynamically stable and optimal for D/C home with outpatient follow-up with PCP, GI, and surgery. Total Time Spent: Greater than 30 minutes This includes examination of the patient, discharge planning, medication reconciliation, and communication with other providers. Discharge Instructions Please refer to the electronic Patient Visit Report (Discharge Instructions) for additional information. Additional Copies To Dank Carrillo M.D.
== END 2016-11-12 15:55 | disposition home or self-care (01) | DRG 418 ==
LOC: C.EDB 01:24 → C.MSW 05:02 → ENRESERV 05:27 → OBSVTOIN 12:30 → C.MSW 16:28
PROVIDERS: ADMIT Internal Medicine; ATTEND Internal Medicine
PROC: 0FT44ZZ Resection of Gallbladder, Percutaneous Endoscopic Approach (ICD-10-PCS; principal; 2016-11-07 10:00)
DX: K80.12 Calculus of gallbladder with acute and chronic cholecystitis without obstruction (principal); E87.1 Hypo-osmolality and hyponatremia; E23.0 Hypopituitarism; E23.2 Diabetes insipidus; K82.8 Other specified diseases of gallbladder; E11.9 Type 2 diabetes mellitus without complications; H54.8 Legal blindness, as defined in USA; H40.9 Unspecified glaucoma; K21.9 Gastro-esophageal reflux disease without esophagitis; I25.2 Old myocardial infarction; Z79.899 Other long term (current) drug therapy; Z79.84 Long term (current) use of oral hypoglycemic drugs; Z86.19 Personal history of other infectious and parasitic diseases; Z87.891 Personal history of nicotine dependence; Z80.3 Family history of malignant neoplasm of breast; Z80.52 Family history of malignant neoplasm of bladder; Z84.1 Family history of disorders of kidney and ureter; Z80.8 Family history of malignant neoplasm of other organs or systems

== ENCOUNTER → 2016-11-16 | Outpatient (CLI) | payer OTHER, BC ==
[~2016-11-16] MED LIST changes: +GLIM1TAB2 PO; -LVQ500 PO; +LVQ750 PO; -MTR500 PO; -NYST1POW7 TOP; -SALI0.6510
[2016-11-16 12:20] LABS: ALT/SGPT 42 U/L (12-78); BLOOD UREA NITROGEN 17 mg/dl (7-18); CALCIUM 9.7 mg/dl (8.5-10.1); CARBON DIOXIDE 25 mmol/L (21-32); CHLORIDE 101 mmol/L (98-107); GLUCOSE 116 mg/dl (70-99); POTASSIUM 3.6 mmol/L (3.5-5.1); SODIUM 135 mmol/L (136-145)
[2016-11-16 12:23] LABS: ALB/GLOB RATIO 0.5 (0.9-2); ALKALINE PHOSPHATASE 102 U/L (45-117); AST/SGOT 43 U/L (15-37)
== END | disposition home or self-care (01) ==
LOC: C.LABPVFM 11-15 10:50
PROVIDERS: ATTEND Nurse Practitioner
DX: K83.0 Cholangitis (principal); E83.42 Hypomagnesemia; B37.2 Candidiasis of skin and nail; R60.9 Edema, unspecified; K21.9 Gastro-esophageal reflux disease without esophagitis; E87.6 Hypokalemia; E11.9 Type 2 diabetes mellitus without complications

== ENCOUNTER 2016-11-22 08:42 | Day surgery (SDC) | payer OTHER, BC ==
[~2016-11-22] VITALS: Ht 157.5 cm; Wt 75.0 kg
--- NOTE | 2016-11-22 08:36 | Endo History and Physical ---
History & Physical Date of Service: Nov 22, 2016. Chief Complaint: History of cholangitis Referring Physician: History of Present Illness The patient presents for follow-up ERCP after having cholangitis over 6 weeks ago. She recently underwent a cholecystectomy and presents today for follow-up ERCP with stent removal. 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) Hx Thoracic Surgery: No Hx Orthopedic: No Hx Urinary Tract Surgery: Yes (CYSTO WITH STONE EXTRACTION ) Cholecystectomy Social History Smoking Status: Never Smoker Hx Substance Use: No Hx Alcohol Use: No Allergies Coded Allergies: Amoxicillin (Verified Allergy, Intermediate, Swelling of Lips, 11/19/16) Ciprofloxacin (Verified Allergy, Intermediate, RASH, NAUSEA, 11/19/16) has tolerated levaquin without any notable problem (see September 2016 admission) Sulfa Antibiotics (Verified Allergy, Intermediate, RASH, 11/19/16) Biotin (Verified Allergy, Unknown, UNKN, 11/19/16) Cefepime (Verified Adverse Reaction, Severe, HALLUCINATIONS, 11/19/16) Diphenhydramine (Verified Adverse Reaction, Severe, HYPER INSOMNIA, ) Mirtazapine (Verified Adverse Reaction, Intermediate, altered mental status changes, 11/19/16) Nitrofurantoin (Verified Adverse Reaction, Intermediate, CHEST PAIN, CONFUSION, 11/19/16) Oxycodone (Verified Adverse Reaction, Mild, N/V, 11/19/16) Current Medications Reported Home Medications Medications Dose Route/Sig Max Daily Dose Days Date Category Dose Instructions Hygroton (Chlorthalidone) 25 Mg Tab 12.5 Mg PO DAILY 10/08/16 Reported Sf 5000 Plus (Sodium Fluoride (Dental)) 1.1 % Cre 1 Appln TOP BID 10/08/16 Reported Desmopressin Acetate 0.1 Mg Tab 0.1 Mg PO D 10/08/16 Reported Multivitamin (Multivitamins) Tab 1 Tab PO DAILY 09/04/16 Reported Docusate Sodium 100 Mg Cap 100 Mg PO DAILY 08/07/16 Reported Ammonium Lactate (Lactic Acid (Ammonium Lactate)) 12 % Lot 1 Appln TOP UD 08/07/16 Reported Alendronate Sodium 70 Mg Tab 70 Mg PO WK 08/07/16 Reported TAKE THIS MEDICATION ONCE WEEKLY 30 TO 60 MINUTES PRIOR TO BREAKFAST OM AM EMPTY STOMACH. DO NOT LIE DOWN AFTER TAKING THIS MEDICATION. Levothyroxine Sodium 125 Mcg Tab 125 Mcg PO DAILY 08/07/16 Reported Potassium Chloride Er (Potassium Chloride Microencaps) 20 Meq Tab 20 Meq PO DAILY 08/07/16 Reported Cortef (Hydrocortisone) 10 Mg Tab 5 Mg PO UD 08/07/16 Reported TAKE HALF A TABET (5 MG) 8 HOURS AFTER MORNING DOSE Cortef (Hydrocortisone) 10 Mg Tab 15 Mg PO QAM 08/07/16 Reported Calcitriol 0.25 Mcg Cap 0.25 Mcg PO DAILY 08/07/16 Reported Latanoprost 37 Drops/2.5 Ml Soln 1 Drop OPB HS 08/07/16 Reported Vitamin D-3 (Cholecalciferol) 1,000 Unit Tab 1,000 Inter.unit PO DAILY 06/01/16 Reported Caltrate 600+D (Calcium Carbonate-Cholecalcife) 1 Tab Tab 1 Tab PO DAILY 03/29/16 Reported Align (Probiotic Product) 4 Mg Cap 1 Cap PO DAILY 03/29/16 Reported Systane Ultra (Polyethylene Glycol-Propylene) 1 Leslie Leslie 1 Drop OP Q4-6 HRS 11/28/15 Reported Biofreeze (Menthol (Topical Analgesic)) Unknown Strength Gel 1 Appln TOP UD PRN 11/28/15 Reported APPLY PER PACKAGE DIRECTIONS Prilosec (Omeprazole) 20 Mg Cap 20 Mg PO DAILY 10/01/14 Reported Tylenol (Acetaminophen) 325 Mg Tab 650 Mg PO Q6H PRN 06/05/14 Reported Vital Signs Weight (Kilograms): 75 Height (Feet): 5 Height (Inches): 2 Physical Exam General Appearance: no apparent distress Respiratory/Chest: Auscultation: breath sounds normal Cardiovascular: Heart Auscultation: RRR, murmur Abdomen: Inspection & Palpation: soft Assessment and Plan Patient presents for follow-up ERCP today for biliary stent removal. We have discussed the risks and benefits to include bleeding, infection, perforation, pancreatitis and need for follow-up studies.
[~2016-11-22 08:42] MED LIST changes: -GLIM1TAB2 PO; +LACTATED RINGER'S 1000ML 1,000 ML IV ONE; +LACTATED RINGER'S 1000ML 1,000 ML IV SCH; -LVQ750 PO
[2016-11-22] MEDS ORDERED: LIDOCAINE HCL 2% 2 ML VIAL (20MG/ML) ONE (08:58)
[2016-11-22] MEDS ORDERED: MIDAZOLAM HCL 1 MG/ML 2ML VIAL ONE (08:58)
[2016-11-22] MEDS ORDERED: DEXAMETHASONE SOD INJ 4 MG/ML VIAL ONE (08:58)
[2016-11-22] MEDS ORDERED: FENTANYL CITRATE INJ 50 MCG/1 ML 2 ML VIAL ONE (08:58)
[2016-11-22] MEDS ORDERED: ONDANSETRON INJ 2 MG/ML 2 ML VIAL ONE (08:58)
[2016-11-22] MEDS ORDERED: PROPOFOL IV EMULSION 10 MG/ML 20 ML VIAL IV ONE (08:58)
[2016-11-22] MEDS ORDERED: SUCCINYLCHOLINE CHLORIDE 20 MG/ML 10 ML VIAL IV ONE (08:58)
[2016-11-22] MEDS ORDERED: INDOMETHACIN 50 MG SUPP PR SCH (09:00)
[2016-11-22 09:19] VITALS: BP 153/70; PULSE 84; TEMP 36.6; O2SAT 95; Ht 157.5 cm; Wt 75.0 kg
[2016-11-22 09:55] LABS: BUN/CREATININE RATIO 15.4 (10-20); CALCIUM 9.1 mg/dl (8.5-10.1); CREATININE 1.1 mg/dl (0.60-1.20); POTASSIUM 3.2 mmol/L (3.5-5.1)
[2016-11-22 09:57] LABS: ALB/GLOB RATIO 0.6 (0.9-2)
[2016-11-22] MEDS ORDERED: BACITRACIN OINT 15 GM TUBE ONE (10:41)
[2016-11-22] MEDS ORDERED: FENTANYL CITRATE INJ 50 MCG/1 ML 2 ML VIAL IV PRN (11:00)
[2016-11-22] MEDS ORDERED: PROMETHAZINE HCL INJ 6.25 MG in SODIUM CHLORIDE 0.9% 50ML 50 ML IV PRN (11:00)
[2016-11-22] MEDS ORDERED: ONDANSETRON INJ 2 MG/ML 2 ML VIAL IV PRN ×2 (11:00→11:15)
[2016-11-22] MEDS ORDERED: ATROPINE SULFATE 0.1 MG/ML 5ML SYR IV PRN (11:00)
[2016-11-22] MEDS ORDERED: EpHEDrine SULFATE INJ 50 MG/ML AMP IV PRN (11:00)
--- NOTE | 2016-11-22 11:05 | GI REPORT ---
Procedure Date: 11/22/2016 10:32 AM Procedure: ERCP Indications: Follow-up of ascending cholangitis, Stent removal Medicines: General Anesthesia, Indocin 100 mg [place] Complications: No immediate complications. Estimated blood loss: Minimal. Estimated Blood Loss: Estimated blood loss was minimal. Procedure: Pre-Anesthesia Assessment: - Prior to the procedure, a History and Physical was performed, and patient medications, allergies and sensitivities were reviewed. The patient's tolerance of previous anesthesia was reviewed. - The risks and benefits of the procedure and the sedation options and risks were discussed with the patient. All questions were answered and informed consent was obtained. - Patient identification and proposed procedure were verified prior to the procedure by the physician, the nurse and the medical technologist blood bank. The procedure was verified in the pre-procedure area in the procedure room. - Pre-procedure physical examination revealed no contraindications to sedation. - ASA Grade Assessment: IV - A patient with severe systemic disease that is a constant threat to life. - After reviewing the risks and benefits, the patient was deemed in satisfactory condition to undergo the procedure. - The anesthesia plan was to use general anesthesia. - Immediately prior to administration of medications, the patient was re-assessed for adequacy to receive sedatives. - The heart rate, respiratory rate, oxygen saturations, blood pressure, adequacy of pulmonary ventilation, and response to care were monitored throughout the procedure. - The physical status of the patient was re-assessed after the procedure. After obtaining informed consent, the scope was passed under direct vision. Throughout the procedure, the patient's blood pressure, pulse, and oxygen saturations were monitored continuously.The ERCP was accomplished without difficulty. The patient tolerated the procedure well. The SCOPE was introduced through the mouth, and advanced to the duodenum and used to inject contrast into the bile duct. Findings: A unloading checker film of the abdomen was obtained. Surgical clips, consistent with previous cholecystectomy, were seen in the area of the right upper quadrant of the abdomen. One stent ending in the main bile duct was seen. The esophagus was successfully intubated under direct vision without detailed examination of the pharynx, larynx, and associated structures, and upper GI tract. The upper GI tract was grossly normal. A biliary sphincterotomy had been performed and a partially occluded stent was noted. The sphincterotomy appeared open. One stent was removed from the biliary tree using a snare. The bile duct was deeply cannulated with the short-nosed traction sphincterotome (Omni 35) and 0.035 in Acrobat guidewire. Contrast was injected. I personally interpreted the bile duct images. Contrast extended to the main bile duct. The main bile duct was mildly dilated and diffusely dilated. The largest diameter was 10 mm. To discover objects, the biliary tree was swept multiple times with a 12 mm balloon starting at the bifurcation. Sludge was swept from the duct. Nothing remained on a final occlusion cholangiogram. The endoscope was withdrawn from the patient. Impression: - Prior biliary endoscopic sphincterotomy appeared open. - One stent was removed from the biliary tree. - The entire main bile duct was mildly dilated. - The biliary tree was swept and sludge was found. Recommendation: - Discharge patient to home (ambulatory). - Clear liquid diet today. - Observe patient's clinical course following today's ERCP with therapeutic intervention. - Return to my office PRN. Brandon Chappell D.O. Brandon Chappell DO 11/22/2016 11:04:45 AM This report has been signed electronically. Note Initiated On: 11/22/2016 10:32 AM I attest to the content of the Intraoperative Record and orders documented therein, exceptions below
--- NOTE | 2016-11-22 11:07 | Discharge Instructions ---
Endoscopy Patient Instructions Date / Procedure(s) Performed Nov 22, 2016. ERCP Allergy Information Coded Allergies: Amoxicillin (Verified Allergy, Intermediate, Swelling of Lips, 11/22/16) Ciprofloxacin (Verified Allergy, Intermediate, RASH, NAUSEA, 11/22/16) has tolerated levaquin without any notable problem (see September 2016 admission) Sulfa Antibiotics (Verified Allergy, Intermediate, RASH, 11/22/16) Biotin (Verified Allergy, Unknown, UNKN, 11/22/16) Cefepime (Verified Adverse Reaction, Severe, HALLUCINATIONS, 11/22/16) Diphenhydramine (Verified Adverse Reaction, Severe, HYPER INSOMNIA, 11/22/16 ) Mirtazapine (Verified Adverse Reaction, Intermediate, altered mental status changes, 11/22/16) Nitrofurantoin (Verified Adverse Reaction, Intermediate, CHEST PAIN, CONFUSION, 11/22/16) Oxycodone (Verified Adverse Reaction, Mild, N/V, 11/22/16) Discharge Date / Findings Nov 22, 2016. Biliary stent removed Biliary sludge seen and removed Medication Instructions Reported Home Medications Medications Dose Route/Sig Max Daily Dose Days Date Category Dose Instructions Hygroton (Chlorthalidone) 25 Mg Tab 12.5 Mg PO DAILY 10/08/16 Reported Sf 5000 Plus (Sodium Fluoride (Dental)) 1.1 % Cre 1 Appln TOP BID 10/08/16 Reported Desmopressin Acetate 0.1 Mg Tab 0.1 Mg PO D 10/08/16 Reported Multivitamin (Multivitamins) Tab 1 Tab PO DAILY 09/04/16 Reported Docusate Sodium 100 Mg Cap 100 Mg PO DAILY 08/07/16 Reported Ammonium Lactate (Lactic Acid (Ammonium Lactate)) 12 % Lot 1 Appln TOP UD 08/07/16 Reported Alendronate Sodium 70 Mg Tab 70 Mg PO WK 08/07/16 Reported TAKE THIS MEDICATION ONCE WEEKLY 30 TO 60 MINUTES PRIOR TO BREAKFAST OM AM EMPTY STOMACH. DO NOT LIE DOWN AFTER TAKING THIS MEDICATION. Levothyroxine Sodium 125 Mcg Tab 125 Mcg PO DAILY 08/07/16 Reported Potassium Chloride Er (Potassium Chloride Microencaps) 20 Meq Tab 20 Meq PO DAILY 08/07/16 Reported Cortef (Hydrocortisone) 10 Mg Tab 5 Mg PO UD 08/07/16 Reported TAKE HALF A TABET (5 MG) 8 HOURS AFTER MORNING DOSE Cortef (Hydrocortisone) 10 Mg Tab 15 Mg PO QAM 08/07/16 Reported Calcitriol 0.25 Mcg Cap 0.25 Mcg PO DAILY 08/07/16 Reported Latanoprost 37 Drops/2.5 Ml Soln 1 Drop OPB HS 08/07/16 Reported Vitamin D-3 (Cholecalciferol) 1,000 Unit Tab 1,000 Inter.unit PO DAILY 06/01/16 Reported Caltrate 600+D (Calcium Carbonate-Cholecalcife) 1 Tab Tab 1 Tab PO DAILY 03/29/16 Reported Align (Probiotic Product) 4 Mg Cap 1 Cap PO DAILY 03/29/16 Reported Systane Ultra (Polyethylene Glycol-Propylene) 1 Leslie Leslie 1 Drop OP Q4-6 HRS 11/28/15 Reported Biofreeze (Menthol (Topical Analgesic)) Unknown Strength Gel 1 Appln TOP UD PRN 11/28/15 Reported APPLY PER PACKAGE DIRECTIONS Prilosec (Omeprazole) 20 Mg Cap 20 Mg PO DAILY 10/01/14 Reported Tylenol (Acetaminophen) 325 Mg Tab 650 Mg PO Q6H PRN 06/05/14 Reported Provider Instructions Activity Restrictions - No exercising or heavy lifting for 24 hours. - Do not drink alcohol the day of the procedure. - Do not drive a car or operate machinery until the day after the procedure. - Do not make any important decisions or sign important papers in 24 hours after the procedure. Following Day: - Return to full activity which may include returning to work/school. Diet Clear liquid diet today Regular diet on Saturday Treatment For Common After Affects For mild abdominal pain, bloating, or excessive gas: - Rest - Eat lightly - Lie on right side Follow-Up Information Follow-up with Dr. Chappell as needed Clear liquid diet today. Patient may have a regular diet tomorrow Anesthesia Information What You Should Know You have had a procedure that required some medicine to reduce anxiety and discomfort. This treatment is called moderate sedation. After receiving the treatment, you may be sleepy, but you will be able to breathe on your own. The effects of the treatment may last for several hours. Follow these instructions along with Activity/Diet recommendations noted above: * Do NOT do anything where dizziness or clumsiness would be dangerous. * Rest quietly at home today, then you can be up and about tomorrow. * Have a responsible person stay with you the rest of today. * You may have had an I.V. today. If so, you may take the dressing off later today. Recommendations Call your doctor if: * Trouble breathing * Continuous vomiting for more than 24 hours * Temperature above 101 degrees * Severe abdominal pain or bloating * Pain not relieved by pain medicine ordered * There is increased drainage or redness from any incision * A large amount of rectal bleeding greater than 2-3 tablespoons. (If you had a polyp/s removed or have hemorrhoids, a small amount of blood - from the rectum is to be expected.) * You have any unanswered questions or concerns. IN THE EVENT OF A SERIOUS EMERGENCY, GO TO THE NEAREST EMERGENCY ROOM Your discharge instructions were prepared by provider Brandon Chappell. Patient Instructions Signature Page Yoav Erik Patient (or Guardian) Signature/Date: I have read and understand the instructions given to me by my caregivers. Caregiver/RN/Doctor Signature/Date: The above-named patient and/or guardian has received patient instructions on this date. + Original Patient Signature Page (only) stays with chart. Please make copy for patient.
--- NOTE | 2016-11-22 11:33 | DIAGNOSTIC IMAGING REPORT ---
ERCP BILIARY DUCTAL CLINICAL HISTORY: ERCP IN OR COMPARISON STUDY: Abdominal ultrasound 11/06/2016. ERCP 10/09/2016. FLUOROSCOPY TIME: 1 minute and 11 seconds. FINDINGS: 15 fluoroscopic spot images. The endoscope is seen at the second portion of the duodenum and the ampulla was cannulated. A guidewire and contrast were placed in the common bile duct. Multiple round filling defects are seen within the common bile duct suggestive of stones. A balloon sweep was performed. IMPRESSION: Fluoroscopy provided for ERCP Electronically signed by: Joey Archer M.D. 11/22/2016 11:32 AM Dictated Date/Time: 11/22/2016 11:30 AM
--- NOTE | 2016-11-22 11:44 | Anesthesiology Progress Note ---
Anesthesia Post Op Note Date & Time Nov 22, 2016 at 11:44 Vital Signs Pain Intensity: 0 Vital Signs Past 12 Hours Date Time Temp Pulse Resp B/P (MAP) Pulse Ox O2 Delivery O2 Flow Rate FiO2 11/22/16 11:35 36.4 71 16 127/75 98 Room Air 11/22/16 11:25 71 20 128/79 100 Mask 6 11/22/16 11:15 70 19 134/83 100 Mask 10 11/22/16 11:06 36.2 81 18 152/98 100 Mask 10 11/22/16 09:19 36.6 84 22 153/70 (97) 95 Room Air Notes Mental Status: alert / awake / arousable, participated in evaluation Pt Amnestic to Procedure: Yes Nausea / Vomiting: adequately controlled Pain: adequately controlled Airway Patency, RR, SpO2: stable & adequate BP & HR: stable & adequate Hydration State: stable & adequate Anesthetic Complications: no major complications apparent
[2016-11-22 11:54] VITALS: BP 119/67; PULSE 76; TEMP 36.6; O2SAT 99
[2016-11-22 12:25] VITALS: BP 119/67; PULSE 82; TEMP 36.4; O2SAT 96
[2016-11-22 12:55] VITALS: BP 108/69; PULSE 79; TEMP 36.4; O2SAT 96
--- NOTE | 2016-11-27 14:45 | Progress Note ---
Progress Note Date of Service Nov 27, 2016. Progress Note PHONE FOLLOWUP: I called the patient's , Melecio Valencia to see how the patient was doing and how her skin tears were healing. He relays that they have been healing well with no evidence for infection and she has not had any visual difficulty or pain. Despite this, I did offer to set the patient up with plastic surgery if desired, as I had done on the day of the procedure, and he again declined. The patient's was offered a chance to ask any questions and he had none. As the patient appears to be healing well, I invited the to call if he had any further questions and wished the patient an expedient recovery process.
== END 2016-11-22 13:30 | disposition home or self-care (01) ==
LOC: C.ACU 08:42
PROVIDERS: ATTEND Internal Medicine Gastroenterology
DX: K83.8 Other specified diseases of biliary tract (principal); E11.9 Type 2 diabetes mellitus without complications; E78.00 Pure hypercholesterolemia, unspecified; K21.9 Gastro-esophageal reflux disease without esophagitis; H40.9 Unspecified glaucoma; M19.90 Unspecified osteoarthritis, unspecified site; G40.909 Epilepsy, unspecified, not intractable, without status epilepticus; Z79.899 Other long term (current) drug therapy

== ENCOUNTER → 2016-12-06 | Outpatient (CLI) | payer OTHER, BC ==
[~2016-12-06] MED LIST changes: -LACTATED RINGER'S 1000ML 1,000 ML IV ONE; -LACTATED RINGER'S 1000ML 1,000 ML IV SCH
[2016-12-06 13:03] LABS: BLOOD UREA NITROGEN 17 mg/dl (7-18); BUN/CREATININE RATIO 17.2 (10-20); CALCIUM 8.6 mg/dl (8.5-10.1); CARBON DIOXIDE 28 mmol/L (21-32); CHLORIDE 102 mmol/L (98-107); GLUCOSE 164 mg/dl (70-99); POTASSIUM 3.3 mmol/L (3.5-5.1); SODIUM 136 mmol/L (136-145)
== END | disposition home or self-care (01) ==
LOC: C.LABPVFM 08:55
PROVIDERS: ATTEND Nurse Practitioner
DX: N28.9 Disorder of kidney and ureter, unspecified (principal)

== ENCOUNTER → 2016-12-08 | Outpatient (CLI) | payer OTHER, BC ==
[2016-12-08 13:02] LABS: URINE APPEARANCE CLEAR (CLEAR); URINE BILIRUBIN NEG (NEG); URINE COLOR YELLOW; URINE EPITHELIAL CELL AUTO 0-5 /lpf (0-5); URINE NITRITE NEG (NEG); UROBILINOGEN NEG (NEG)
[2016-12-08 13:04] LABS: MANUAL MICROSCOPIC REQUIRED? NO; REVIEW REQ? NO
== END | disposition home or self-care (01) ==
LOC: C.LABPVFM 08:24
PROVIDERS: ATTEND Family Medicine
DX: R35.0 Frequency of micturition (principal)

== ENCOUNTER → 2016-12-31 | Outpatient (CLI) | payer OTHER, BC ==
[2016-12-31 12:59] LABS: BLOOD UREA NITROGEN 21 mg/dl (7-18); BUN/CREATININE RATIO 21.1 (10-20); CALCIUM 8.8 mg/dl (8.5-10.1); CARBON DIOXIDE 28 mmol/L (21-32); CHLORIDE 105 mmol/L (98-107); GLUCOSE 186 mg/dl (70-99); POTASSIUM 3.6 mmol/L (3.5-5.1); SODIUM 137 mmol/L (136-145)
== END | disposition home or self-care (01) ==
LOC: C.LABPVFM 09:11
PROVIDERS: ATTEND Family Medicine
DX: E87.6 Hypokalemia (principal)

== ENCOUNTER 2017-02-13 18:52 | Emergency (ER) | payer OTHER, BC ==
[~2017-02-13 18:52] MED LIST changes: -LEVO125T4 PO; +LEVO125T5 PO
[2017-02-13 18:57] VITALS: TEMP 36.5; Ht 157.5 cm
[2017-02-13 19:40] LABS: URINE APPEARANCE CLEAR (CLEAR); URINE BILIRUBIN NEG (NEG); URINE COLOR YELLOW; URINE NITRITE NEG (NEG); URINE SPECIFIC GRAVITY 1.008 (1.000-1.030); UROBILINOGEN NEG (NEG)
[2017-02-13] MEDS ORDERED: GLIM1TAB2 PO (19:44)
[2017-02-13] MEDS ORDERED: POLY335019 PO (19:44)
[2017-02-13] MEDS ORDERED: DONE1TAB11 PO (19:44)
[2017-02-13] MEDS ORDERED: METH-1305 PO (19:44)
[2017-02-13] MEDS ORDERED: MIRA1TAB3 PO (19:44)
[2017-02-13] MEDS ORDERED: SALI0.6510 NAE (19:44)
[2017-02-13 19:46] LABS: MANUAL MICROSCOPIC REQUIRED? NO; REVIEW REQ? NO
[2017-02-13 19:58] LABS: BASO % 0.2 %; BASO ABS # 0.03 K/uL (0-0.2); COMPLETE YES; EOS % 0.7 %; HEMATOCRIT 37.6 % (37-47); IG% 1.4 %; LYMPH % 9.7 %; MEAN CORPUSCULAR HEMOGLOBIN 30.7 pg (25-34); MEAN CORPUSCULAR HGB CONC 35.6 g/dl (32-36); MONO % 7.5 %; NEUT % 80.5 %; PLATELET COUNT 218 K/uL (130-400); RED BLOOD COUNT 4.37 M/uL (4.2-5.4); WHITE BLOOD COUNT 13.46 K/uL (4.8-10.8)
[2017-02-13 20:08] LABS: PARTIAL THROMBOPLASTIN RATIO 1.1; PROTHROMBIN TIME (PATIENT) 10.6 SECONDS (9.0-12.0)
[2017-02-13 20:10] VITALS: O2SAT 94
[2017-02-13 20:17] LABS: ALT/SGPT 38 U/L (12-78); BLOOD UREA NITROGEN 16 mg/dl (7-18); BUN/CREATININE RATIO 14.6 (10-20); CALCIUM 8.8 mg/dl (8.5-10.1); CARBON DIOXIDE 25 mmol/L (21-32); CHLORIDE 94 mmol/L (98-107); CREATININE 1.11 mg/dl (0.60-1.20); GLUCOSE 162 mg/dl (70-99); MAGNESIUM 1.9 mg/dl (1.8-2.4); POTASSIUM 3.8 mmol/L (3.5-5.1); SODIUM 128 mmol/L (136-145)
[2017-02-13 20:22] LABS: ALKALINE PHOSPHATASE 108 U/L (45-117); AST/SGOT 23 U/L (15-37)
[2017-02-13 21:13] VITALS: BP 150/83; PULSE 83; O2SAT 98
--- NOTE | 2017-02-13 22:28 | EMERGENCY ROOM VISIT NOTE ---
History Report prepared by Eliezer: David Velez Under the Supervision of: Dr. Abel Kan D.O. First contact with patient: 19:02 Chief Complaint: ABNORMAL LABS Stated Complaint: LOW SODIUM History of Present Illness The patient is a 81 year old female who presents to the Emergency Room with complaints of constant hyponatremia. She had blood work done earlier today and was called just prior to arrival with her results. She states that her sodium level was found to be 122. The patient has had problems with hyponatremia in the past. She is on Desmopressin for pituitary gland dysfunction. She states that she had an episode of dizziness earlier this week but has no complaints currently. She feels at her baseline.. The patient notes that she had a cholecystectomy three months ago. She denies headache, chest pain, SOB, nausea, vomiting, or diarrhea. No weakness or numbness. She notes that she has been drinking a lot of water recently. Source of History: patient Onset: Today Symptom Intensity: Sodium of 122 Quality: other (Hyponatremia) Timing: constant Associated Symptoms: No headache, No chest pain, No SOB, No nausea, No vomiting, No diarrhea Note: Additional symptoms: an episode of dizziness a few days ago. Review of Systems See HPI for pertinent positives & negatives. A total of 10 systems reviewed and were otherwise negative. 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 (18) Sepsis (19) Ureterolithiasis (20) UTI (urinary tract infection) Family History Bladder cancer MOTHER Breast cancer SISTER FH: kidney disease FHx: heart disease Skin cancer MOTHER Social History Smoking Status: Former Smoker Alcohol Use: none Drug Use: none Marital Status: Housing Status: lives with family Occupation Status: retired Current/Historical Medications Scheduled Alendronate Sodium (Alendronate Sodium), 70 MG PO WK Calcitriol (Calcitriol), 0.25 MCG PO DAILY Calcium Carbonate-Cholecalcife (Caltrate 600+D), 1 TAB PO DAILY Chlorthalidone (Hygroton), 12.5 MG PO DAILY Cholecalciferol (Vitamin D-3), 1,000 INTER.UNIT PO DAILY Desmopressin Acetate (Desmopressin Acetate), 0.1 MG PO DAILY Docusate Sodium (Docusate Sodium), 100 MG PO DAILY Donepezil Hydrochloride (Donepezil Hcl), 1 TAB PO DAILY Glimepiride (Glimepiride), 1 TAB PO DAILY Hydrocortisone (Cortef), 15 MG PO QAM Hydrocortisone (Cortef), 5 MG PO 1600 Lactic Acid (Ammonium Lactate) (Ammonium Lactate), 1 APPLN TOP UD Latanoprost (Latanoprost), 1 DROP OPB HS Levothyroxine Sodium (Levothyroxine Sodium), 125 MCG PO DAILY Methenamine Hippurate (Methenamine Hippurate), 1 TAB PO QPM Mirabegron (Myrbetriq Er), 1 TAB PO DAILY Multivitamin (Multivitamin), 1 TAB PO DAILY Omeprazole (Prilosec), 20 MG PO QAM Polyethylene Glycol-Propylene (Systane Ultra), 1 DROP OP Q4-6 HRS Potassium Chloride Microencaps (Potassium Chloride Er), 20 MEQ PO BID Probiotic Product (Align), 1 CAP PO DAILY Saline ([place] Nasal [place]), 1 SPRAY OSVALDO UD Scheduled PRN Acetaminophen (Tylenol), 650 MG PO Q6H PRN for Pain Menthol (Topical Analgesic) (Biofreeze), 1 APPLN TOP UD PRN for Pain Polyethylene Glycol 3350 (Miralax), 17 GM PO DAILY PRN for Constipation Allergies Coded Allergies: Amoxicillin (Verified Allergy, Intermediate, Swelling of Lips, 02/13/17) Ciprofloxacin (Verified Allergy, Intermediate, RASH, NAUSEA, 02/13/17) has tolerated levaquin without any notable problem (see September 2016 admission) Sulfa Antibiotics (Verified Allergy, Intermediate, RASH, 02/13/17) Biotin (Verified Allergy, Unknown, UNKN, 02/13/17) Cefepime (Verified Adverse Reaction, Severe, HALLUCINATIONS, 02/13/17) Diphenhydramine (Verified Adverse Reaction, Severe, HYPER INSOMNIA, ) Mirtazapine (Verified Adverse Reaction, Intermediate, altered mental status changes, 02/13/17) Nitrofurantoin (Verified Adverse Reaction, Intermediate, CHEST PAIN, CONFUSION, 02/13/17) Oxycodone (Verified Adverse Reaction, Mild, N/V, 02/13/17) Physical Exam Vital Signs Date Time Temp Pulse Resp B/P (MAP) Pulse Ox O2 Delivery O2 Flow Rate FiO2 02/13/17 21:13 83 18 150/83 98 Room Air 02/13/17 20:10 74 18 170/88 94 Room Air 72 173/103 72 177/90 02/13/17 20:10 94 Room Air 02/13/17 20:10 94 Room Air 02/13/17 19:24 70 02/13/17 18:57 36.5 68 18 145/80 95 Room Air Physical Exam GENERAL: Sitting up in bed, chronically ill appearing, no acute distress, nontoxic. EYE EXAM: normal conjunctiva. OROPHARYNX: no exudate, no erythema, lips, buccal mucosa, and tongue normal and mucous membranes are moist NECK: supple, no nuchal rigidity, no adenopathy, non-tender LUNGS: Clear to auscultation. Normal chest wall mechanics HEART: no murmurs, S1 normal and S2 normal ABDOMEN: abdomen soft, non-tender, normo-active bowel sounds, no masses, no rebound or guarding. BACK: Back is symmetrical on inspection and there is no deformity, no midline tenderness, no CVA tenderness. SKIN: no rashes and no bruising UPPER EXTREMITIES: upper extremities are grossly normal. LOWER EXTREMITIES: No pitting edema. NEURO EXAM: Normal sensorium, cranial nerves II-XII grossly intact, normal speech, no focal deficit. Medical Decision & Procedures Laboratory Results 02/13/17 19:48 Red Blood Count 4.37, Mean Corpuscular Volume 86.0, Mean Corpuscular Hemoglobin 30.7, Mean Corpuscular Hemoglobin Concent 35.6, Mean Platelet Volume 10.0, Neutrophils (%) (Auto) 80.5, Lymphocytes (%) (Auto) 9.7, Monocytes (%) (Auto) 7.5, Eosinophils (%) (Auto) 0.7, Basophils (%) (Auto) 0.2, Neutrophils # (Auto) 10.83, Lymphocytes # (Auto) 1.30, Monocytes # (Auto) 1.01, Eosinophils # (Auto) 0.10, Basophils # (Auto) 0.03 02/13/17 19:48 Test 02/13/17 19:00 02/13/17 19:48 02/13/17 19:53 Urine Color YELLOW Urine Appearance CLEAR (CLEAR) Urine pH 7.0 (4.5-7.5) Urine Specific [place] 1.008 (1.000-1.030) Urine Protein NEG (NEG) Urine Glucose (UA) NEG (NEG) Urine Ketones NEG (NEG) Urine Occult Blood NEG (NEG) Urine Nitrite NEG (NEG) Urine Bilirubin NEG (NEG) Urine Urobilinogen NEG (NEG) Urine Leukocyte Esterase NEG (NEG) Urine Random Sodium 30 mEq/L White Blood Count 13.46 K/uL (4.8-10.8) Red Blood Count 4.37 M/uL (4.2-5.4) Hemoglobin 13.4 g/dL (12.0-16.0) Hematocrit 37.6 % (37-47) Mean Corpuscular Volume 86.0 fL (80-100) Mean Corpuscular Hemoglobin 30.7 pg (25-34) Mean Corpuscular Hemoglobin Concent 35.6 g/dl (32-36) Platelet Count 218 K/uL (130-400) Mean Platelet Volume 10.0 fL (7.4-10.4) Neutrophils (%) (Auto) 80.5 % Lymphocytes (%) (Auto) 9.7 % Monocytes (%) (Auto) 7.5 % Eosinophils (%) (Auto) 0.7 % Basophils (%) (Auto) 0.2 % Neutrophils # (Auto) 10.83 K/uL (1.4-6.5) Lymphocytes # (Auto) 1.30 K/uL (1.2-3.4) Monocytes # (Auto) 1.01 K/uL (0.11-0.59) Eosinophils # (Auto) 0.10 K/uL (0-0.5) Basophils # (Auto) 0.03 K/uL (0-0.2) RDW Standard Deviation 46.1 fL (36.4-46.3) RDW Coefficient of Variation 14.8 % (11.5-14.5) Immature Granulocyte % (Auto) 1.4 % Immature Granulocyte # (Auto) 0.19 K/uL (0.00-0.02) Prothrombin Time 10.6 SECONDS (9.0-12.0) Prothromb Time International Ratio 1.0 (0.9-1.1) Activated Partial Thromboplast Time 27.3 SECONDS (21.0-31.0) Partial Thromboplastin Ratio 1.1 Anion Gap 9.0 mmol/L (3-11) Estimated GFR () 54.3 Estimated GFR (Non- 46.9 BUN/Creatinine Ratio 14.6 (10-20) Calcium Level 8.8 mg/dl (8.5-10.1) Magnesium Level 1.9 mg/dl (1.8-2.4) Total Bilirubin 0.3 mg/dl (0.2-1) Direct Bilirubin < 0.1 mg/dl (0-0.2) Aspartate Amino Transf (AST/SGOT) 23 U/L (15-37) Alanine Aminotransferase (ALT/SGPT) 38 U/L (12-78) Alkaline Phosphatase 108 U/L (45-117) Troponin I < 0.015 ng/ml (0-0.045) Total Protein 7.2 gm/dl (6.4-8.2) Albumin 3.1 gm/dl (3.4-5.0) Lipase 107 U/L (73-393) Bedside Glucose 160 mg/dl (70-90) Laboratory results per my review. ECG Indication: other (hyponatremia) Rate (beats per minute): 66 Rhythm: sinus rhythm Findings: Q waves (Inferior), T-wave inversion (Septal), other (LAD.) ED Course ED COURSE: Vital signs were reviewed and showed mild hypertension. The patients medical record was reviewed The above diagnostic studies were performed and reviewed. ED treatments and interventions as stated above. 1910: The patient was evaluated in room C10. A complete history and physical examination was performed. []: Upon reevaluation, the patient is [].I discussed my findings with the [ patient] and [] understands and agrees with the treatment plan. Based on the patients age, coexisting illnesses, exam and lab findings the decision to treat as an [inpatient][outpatient] was made. The patient remained stable while under my care. [The patient appeared well at the time of discharge.] [The patient will be evaluated for further management.] Medical Decision Differential Diagnosis includes but is not limited to dehydration, stroke, anemia, hypoglycemia, hyponatremia, hypernatremia, urinary tract infection, pneumonia, bronchitis, sepsis, gastroenteritis, additional abdominal pathology, metabolic abnormalities and infections. Patient is an 81-year-old female the past medical history of hyponatremia on does present and steroids that presents to ER for hyponatremia referred in by nephrology. Labs were obtained and repeated. Labs show a mild leukocytosis of 13,000. BMP shows a sodium of 128 which is significantly improved from 122. Bilirubin all LFTs and troponin was negative. Lipase is normal. UA was negative. INR was unremarkable. Discussed findings with initially customs patrol officer pay station department manager and eventually obtained Dr Turk who referred patient in. He recommended talking with Dr. Mccoy who is this patient's echocardiography radiology technologist. I was eventually was able to discuss the case with him. He recommended having the patient follow up tomorrow as her sodium is significant improved and she has no complaints. I felt this is reasonable. Discussed with family. They agreed. Favor leukocytosis is likely secondary to steroids. No signs of infection on UA. No upper upper respiratory symptoms. Discussed with Pt concerning signs and symptoms to watch out for. Pt was instructed to follow up with their PCP and discussed with the patient their option to return to the ED at anytime for persistent or worsening symptoms. The appropriate anticipatory guidance and out-patient management, including indications for return to the emergency department, were explained at length to the patient and understood. Medication Reconcilliation Current Medication List: was personally reviewed by me Blood Pressure Screening Patient's blood pressure: Elevated blood pressure Blood pressure disposition: Elevated BP felt to be situational Consults Time Called: 2024 Consulting Physician: Dr. Vargas -Nephrology Returned Call: [phone] I reviewed the patient's case with Dr. Vargas. He recommends consultation with Dr. Turk. Additional Consults: Time Called: 2039 Consulted Physician: Dr. Turk -Nephrology Returned Call: [phone] Additional Comments: I reviewed the patient's case with Dr. Turk. He recommends consultation with the patient's echocardiography radiology technologist. Time Called: 2101 Consulted Physician: Dr. uFng -Endocrinology Returned Call: [phone] Additional Comments: I reviewed the patient's case with Dr. Fung. He will follow up with the patient tomorrow. Impression Primary Impression: Hyponatremia Additional Impression: Ambulatory dysfunction Scribe Attestation The scribe's documentation has been prepared under my direction and personally reviewed by me in its entirety. I confirm that the note above accurately reflects all work, treatment, procedures, and medical decision making performed by me. Departure Information Dispostion Home / Self-Care Referrals Dank Carrillo M.D. (PCP) Forms HOME CARE DOCUMENTATION FORM, IMPORTANT VISIT INFORMATION, WORK / SCHOOL INSTRUCTIONS Patient Instructions ED Hyponatremia, My [facility] Additional Instructions Please follow up with Dr. Mccoy with in the next 24 hours. Any worsening of your symptoms, please return to the ED immediately. This includes any fevers greater than 100.4, weakness, dizziness, worsening pain, chest pain, shortness breath, persistent nausea, vomiting, unable to eat or drink, or any other concerning signs or symptoms from your standpoint. Please decrease your fluid intake overnight. Problem Qualifiers
== END 2017-02-13 21:40 | disposition home or self-care (01) ==
LOC: C.EDB 18:53 → C.EDC 21:40
DX: E87.1 Hypo-osmolality and hyponatremia (principal); R26.9 Unspecified abnormalities of gait and mobility; R79.9 Abnormal finding of blood chemistry, unspecified; E23.2 Diabetes insipidus; K21.9 Gastro-esophageal reflux disease without esophagitis; R03.0 Elevated blood-pressure reading, without diagnosis of hypertension; Z90.49 Acquired absence of other specified parts of digestive tract; Z80.52 Family history of malignant neoplasm of bladder; Z80.3 Family history of malignant neoplasm of breast; Z84.1 Family history of disorders of kidney and ureter; Z82.49 Family history of ischemic heart disease and other diseases of the circulatory system; Z87.891 Personal history of nicotine dependence; Z79.52 Long term (current) use of systemic steroids

== ENCOUNTER 2017-03-02 07:05 | Inpatient (IN) | payer OTHER, BC ==
[~2017-03-02] VITALS: Ht 157.5 cm; Wt 77.0 kg
[~2017-03-02 07:05] MED LIST changes: +DONE1TAB11 PO; +GLIM1TAB2 PO; +METH-1305 PO; +MIRA1TAB3 PO; +POLY335019 PO; +SALI0.6510 NAE; -SODI1.1C4 TOP
[2017-03-02] MEDS ORDERED: HALOPERIDOL 5 MG TAB PO STA (07:17)
--- NOTE | 2017-03-02 07:20 | EMERGENCY ROOM VISIT NOTE ---
History Report prepared by Eliezer: Deepti Butts Under the Supervision of: Dr. Freddy Ramirez M.D. First contact with patient: 07:08 Stated Complaint: PSYCH EVAL History of Present Illness The patient is an 81 year old female who presents to the Emergency Room with complaints of increasing agitation over the past several weeks. Per EMS, the patient has a history of two brain surgeries. EMS notes that the patient had a lot of brain swelling with her second surgery. EMS states that since then the patient has had issues with memory and depression. EMS states that the patient was recently taken off her medications to help with her memory because it was affecting her sleep. EMS states that since being taken off her medications, the patient has had increasing anger issues. EMS states that this morning the patient woke and had a complete meltdown. EMS states that the patient began screaming at her family. 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 Source of History: patient, EMS Onset: past several weeks Position: other (global) Quality: other (agitation) Timing: other (increasing) Note: Associated Symptoms: anger issues Review of Systems See HPI for pertinent positives & negatives. A total of 10 systems reviewed and were otherwise negative. 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 (18) Sepsis (19) Ureterolithiasis (20) UTI (urinary tract infection) Family History Bladder cancer MOTHER Breast cancer SISTER FH: kidney disease FHx: heart disease Skin cancer MOTHER Social History Smoking Status: Former Smoker Alcohol Use: none Drug Use: none Marital Status: Housing Status: lives with family Occupation Status: retired Current/Historical Medications Scheduled Alendronate Sodium (Alendronate Sodium), 70 MG PO WK Calcitriol (Calcitriol), 0.25 MCG PO DAILY Calcium Carbonate-Cholecalcife (Caltrate 600+D), 1 TAB PO DAILY Chlorthalidone (Hygroton), 12.5 MG PO DAILY Cholecalciferol (Vitamin D-3), 1,000 INTER.UNIT PO DAILY Desmopressin Acetate (Desmopressin Acetate), 0.5 TAB PO DAILY Docusate Sodium (Docusate Sodium), 100 MG PO DAILY Donepezil Hydrochloride (Donepezil Hcl), 1 TAB PO HS Fluocinonide (Fluocinonide), 1 APPLN TOP BID Hydrocortisone (Cortef), 15 MG PO QAM Hydrocortisone (Cortef), 5 MG PO 1600 Lactic Acid (Ammonium Lactate) (Ammonium Lactate), 1 APPLN TOP UD Latanoprost (Latanoprost), 1 DROP OPB HS Levothyroxine Sodium (Levothyroxine Sodium), 125 MCG PO DAILY Lorazepam (Lorazepam), 0.5 TAB PO QPM Mirabegron (Myrbetriq Er), 1 TAB PO DAILY Multivitamin (Multivitamin), 1 TAB PO DAILY Mupirocin Calcium (Topical) (Mupirocin), 1 APPLN TOP BID Omeprazole (Prilosec), 20 MG PO QAM Polyethylene Glycol-Propylene (Systane Ultra), 1 DROP OP Q4-6 HRS Potassium Chloride Microencaps (Potassium Chloride Er), 20 MEQ PO BID Probiotic Product (Align), 1 CAP PO DAILY Saline ([place] Nasal Mercer), 1 SPRAY OSVALDO UD Scheduled PRN Acetaminophen (Tylenol), 650 MG PO Q6H PRN for Pain Menthol (Topical Analgesic) (Biofreeze), 1 APPLN TOP UD PRN for Pain Polyethylene Glycol 3350 (Miralax), 17 GM PO DAILY PRN for Constipation Allergies Coded Allergies: Amoxicillin (Verified Allergy, Intermediate, Swelling of Lips, 03/02/17) Ciprofloxacin (Verified Allergy, Intermediate, RASH, NAUSEA, 03/02/17) has tolerated levaquin without any notable problem (see September 2016 admission) Sulfa Antibiotics (Verified Allergy, Intermediate, RASH, 03/02/17) Biotin (Verified Allergy, Unknown, UNKN, 03/02/17) Cefepime (Verified Adverse Reaction, Severe, HALLUCINATIONS, 02/13/17) Diphenhydramine (Verified Adverse Reaction, Severe, HYPER INSOMNIA, ) Mirtazapine (Verified Adverse Reaction, Intermediate, altered mental status changes, 03/02/17) Nitrofurantoin (Verified Adverse Reaction, Intermediate, CHEST PAIN, CONFUSION, 03/02/17) Oxycodone (Verified Adverse Reaction, Mild, N/V, 03/02/17) Physical Exam Vital Signs Date Time Temp Pulse Resp B/P (MAP) Pulse Ox O2 Delivery O2 Flow Rate FiO2 03/02/17 12:46 96 17 175/90 95 03/02/17 08:48 72 20 147/93 98 Room Air 03/02/17 07:45 70 16 167/82 98 03/02/17 07:41 69 03/02/17 07:40 95 Room Air 03/02/17 07:10 36.4 80 20 166/80 97 Room Air Physical Exam GENERAL: Patient is an angry female and yelling HEAD: Normocephalic atraumatic EYES: Ocular movements intact pupils equal and react to light OROPHARYNX mucous membranes are moist no exudates present no erythema or edema present NECK: Supple no nuchal rigidity CHEST: Good equal expansion LUNGS: Clear and equal to auscultation CARDIAC: Normal S1 and S2 ABDOMEN: Soft nontender no guarding BACK: No CVA tenderness EXTREMITIES: No pain upon palpation normal muscle strength in all groups no clubbing cyanosis or edema NEURO: Patient is following commands and answering questions appropriately. Alert and oriented x3 Cranial Nerves 2-12 grossly intact Medical Decision & Procedures ER Provider Diagnostic Interpretation: Radiology results as stated below per my review and radiologist interpretation: CHEST ONE VIEW PORTABLE CLINICAL HISTORY: 81 years-old Female presenting with Pt c/o AMS. TECHNIQUE: Portable upright AP view of the chest was obtained. COMPARISON: 10/08/2016. FINDINGS: Atherosclerosis of the aortic arch. Cardiac silhouette normal in size. Mildly low lung volumes. Minimal left basilar opacity as on prior exam. No new focal infiltrate. No pleural large pleural effusion or pneumothorax. Osseous structures normal. Upper abdomen normal. IMPRESSION: 1. Chronic left basilar opacity, likely scarring. No new focal infiltrate to suggest acute cardiopulmonary disease. Electronically signed by: Vu Turcios M.D. 03/02/2017 7:43 AM Dictated Date/Time: 03/02/2017 7:42 AM HEAD WITHOUT CONTRAST (CT) CLINICAL HISTORY: 81 years-old Female presenting with Pt c/o AMS. TECHNIQUE: Multidetector CT imaging of the head was performed without the use of intravenous contrast. IV contrast: None. A dose lowering technique was used consistent with the principles of ALARA (as low as reasonably achievable). COMPARISON: 10/08/2016. CT DOSE (mGy.cm): The estimated cumulative dose is 537.48 mGy.cm. FINDINGS: Cable Placer topogram: Unremarkable. Ventricles and sulci normal in size. Anterior left temporal lobe and superior right frontal lobe encephalomalacia, unchanged. Periventricular white matter hypoattenuation nonspecific but likely chronic small vessel ischemic change, unchanged. No mass effect or midline shift. No hemorrhage or acute territorial infarct. No extra-axial fluid collection. Postsurgical changes of the right frontal calvarium with prior craniotomy and mesh repair of a central craniectomy. Tyler hole in the left frontal region also noted. Paranasal sinuses and mastoid air cells clear. IMPRESSION: 1. No acute intracranial pathology. 2. Chronic small vessel ischemic change. 3. Chronic postsurgical changes. Electronically signed by: Vu Turcios M.D. 03/02/2017 9:09 AM Dictated Date/Time: 03/02/2017 9:03 AM Laboratory Results 03/02/17 07:26 Red Blood Count 4.25, Mean Corpuscular Volume 91.1, Mean Corpuscular Hemoglobin 30.8, Mean Corpuscular Hemoglobin Concent 33.9, Mean Platelet Volume 10.6, Neutrophils (%) (Auto) 66.4, Lymphocytes (%) (Auto) 20.9, Monocytes (%) (Auto) 9.5, Eosinophils (%) (Auto) 2.3, Basophils (%) (Auto) 0.3, Neutrophils # (Auto) 7.74, Lymphocytes # (Auto) 2.44, Monocytes # (Auto) 1.11, Eosinophils # (Auto) 0.27, Basophils # (Auto) 0.04 03/02/17 07:26 Test 03/02/17 07:23 03/02/17 07:26 03/02/17 07:55 Bedside Glucose 96 mg/dl (70-90) White Blood Count 11.67 K/uL (4.8-10.8) Red Blood Count 4.25 M/uL (4.2-5.4) Hemoglobin 13.1 g/dL (12.0-16.0) Hematocrit 38.7 % (37-47) Mean Corpuscular Volume 91.1 fL (80-100) Mean Corpuscular Hemoglobin 30.8 pg (25-34) Mean Corpuscular Hemoglobin Concent 33.9 g/dl (32-36) Platelet Count 219 K/uL (130-400) Mean Platelet Volume 10.6 fL (7.4-10.4) Neutrophils (%) (Auto) 66.4 % Lymphocytes (%) (Auto) 20.9 % Monocytes (%) (Auto) 9.5 % Eosinophils (%) (Auto) 2.3 % Basophils (%) (Auto) 0.3 % Neutrophils # (Auto) 7.74 K/uL (1.4-6.5) Lymphocytes # (Auto) 2.44 K/uL (1.2-3.4) Monocytes # (Auto) 1.11 K/uL (0.11-0.59) Eosinophils # (Auto) 0.27 K/uL (0-0.5) Basophils # (Auto) 0.04 K/uL (0-0.2) RDW Standard Deviation 53.8 fL (36.4-46.3) RDW Coefficient of Variation 16.2 % (11.5-14.5) Immature Granulocyte % (Auto) 0.6 % Immature Granulocyte # (Auto) 0.07 K/uL (0.00-0.02) Nucleated RBC Absolute Count (auto) 0.02 K/uL (0-0) Nucleated Red Blood Cells % 0.2 % Anion Gap 9.0 mmol/L (3-11) Est Creatinine Clear Calc Drug Dose 24.3 ml/min Estimated GFR () 57.4 Estimated GFR (Non- 49.6 BUN/Creatinine Ratio 17.9 (10-20) Calcium Level 8.7 mg/dl (8.5-10.1) Total Bilirubin 0.6 mg/dl (0.2-1) Direct Bilirubin 0.2 mg/dl (0-0.2) Aspartate Amino Transf (AST/SGOT) 38 U/L (15-37) Alanine Aminotransferase (ALT/SGPT) 58 U/L (12-78) Alkaline Phosphatase 99 U/L (45-117) Total Creatine Kinase 30 U/L (26-192) Creatine Kinase MB 0.8 ng/ml (0.5-3.6) Creatine Kinase MB Ratio 2.7 (0-3.0) Troponin I < 0.015 ng/ml (0-0.045) Total Protein 6.8 gm/dl (6.4-8.2) Albumin 3.1 gm/dl (3.4-5.0) Thyroid Stimulating Hormone (TSH) < 0.005 uIu/ml (0.300-4.500) Ethyl Alcohol mg/dL < 3.0 mg/dl (0-3) Urine Color YELLOW Urine Appearance CLEAR (CLEAR) Urine pH 7.0 (4.5-7.5) Urine Specific [place] 1.018 (1.000-1.030) Urine Protein NEG (NEG) Urine Glucose (UA) NEG (NEG) Urine Ketones NEG (NEG) Urine Occult Blood NEG (NEG) Urine Nitrite NEG (NEG) Urine Bilirubin NEG (NEG) Urine Urobilinogen NEG (NEG) Urine Leukocyte Esterase MODERATE (NEG) Urine WBC (Auto) 10-30 /hpf (0-5) Urine RBC (Auto) 0-4 /hpf (0-4) Urine Hyaline Casts (Auto) 1-5 /lpf (0-5) Urine Epithelial Cells (Auto) 10-20 /lpf (0-5) Urine Bacteria (Auto) NEG (NEG) Urine Opiates Screen NEG (NEG) Urine Methadone, Qualitative NEG (NEG) Urine Barbiturates NEG (NEG) Urine Phencyclidine (PCP) Level NEG (NEG) Ur Amphetamine/Methamphetamine NEG (NEG) MDMA (Ecstasy) Screen NEG (NEG) Urine Benzodiazepines Screen NEG (NEG) Urine Cocaine Metabolite NEG (NEG) Urine Marijuana (THC) NEG (NEG) Labs reviewed by ED physician. Medications Administered Medications (Trade) Dose Ordered Sig/Natalee Route Start Time Stop Time Status Last Admin Dose Admin Haloperidol (Haldol Tab) 5 mg NOW STAT PO 03/02/17 07:17 03/02/17 07:20 DC 03/02/17 07:39 5 MG Potassium Chloride (Jennifer Ciel Elix) 40 meq NOW STAT PO 03/02/17 08:12 03/02/17 08:13 DC 03/02/17 09:10 40 MEQ Chlorthalidone (Hygroton Tab) 12.5 mg NOW STAT PO 03/02/17 10:46 03/02/17 10:52 DC 03/02/17 11:44 12.5 MG Hydrocortisone (Cortef Tab) 15 mg NOW STAT PO 03/02/17 10:46 03/02/17 10:52 DC 03/02/17 11:45 15 MG Levothyroxine Sodium (Synthroid Tab) 125 mcg NOW STAT PO 03/02/17 10:46 03/02/17 10:52 DC 03/02/17 11:45 125 MCG Famotidine (Pepcid Tab) 20 mg NOW STAT PO 03/02/17 10:56 03/02/17 10:57 DC 03/02/17 11:44 20 MG ECG Indication: other (confusion) Rate (beats per minute): 73 Rhythm: sinus rhythm Findings: 1st degree AV block, no acute ischemic change, other (old inferior infarct) ED Course 0711: Past medical records reviewed. The patient was evaluated in room A7. A complete history and physical examination was performed. 0717: Ordered Haldol Tab 5 mg PO. 0812: Ordered Jennifer Ciel Elix 40 meq PO. 0924: I reevaluated the patient and she is resting comfortably. I spoke to the patient, her , and family regarding the test results and treatment plan. [facility] will come down to perform a psychiatric evaluation on the patient. 0955: I reevaluated the patient and she is resting. The patients does not feel comfortable in taking the patient home. I recommended [facility] and Case Management does not feel that the patient is a good candidate for [facility]. The patients would like a neurological consult. 1045: Case Management spoke to the patient's at this time regarding options. They would like a neurology consult. 1051: I discussed the patients case with Dr. Mann, Neurology. He states that the patient should be evaluated for further treatment. 1100: I discussed the patients [place], [facility] [place] going to evaluate the patient for further treatment. Medical Decision Differential diagnosis: Etiologies such as metabolic, infection, hypo/hyperglycemia, electrolyte abnormalities, cardiac sources, intracerebral event, toxicologic, neurologic, as well as others were entertained. This is an 81-year-old female who presents emergency department complaining of altered mental status. The patient's is concerned that she is more belligerent at home. The patient is combative upon arrival to the emergency department. I will note that the patient arrives during a period of high volume and high acuity during a home football weekend. For this reason the patient was sedated with Haldol. The patient's was not happy about this and expressed his disapproval and questioned if I had read her chart at all. I had case management meet with the patient and her . They felt that the patient was not a psychiatric candidate. At this point the patient's does not feel comfortable in taking her home. He is asking for neurologic consult. I did discuss the case with Dr. Mann who asked that the patient can be admitted to the hospital. Patient was then again discussed with case management as well as the hospitalist service. Medication Reconcilliation Current Medication List: was personally reviewed by me Blood Pressure Screening Patient's blood pressure: Elevated blood pressure Blood pressure disposition: Referred to PCP Consults Time Called: 1049 Consulting Physician: Dr. Mann, Neurology Returned Call: 1051 I discussed the patients case with Dr. Mann, Neurology. He states that the patient should be evaluated for further treatment. Additional Consults: Time Called: 1055 Consulted Physician: NICOLASA Jang Returned Call: 1100 Additional Comments: I discussed the patients case with NICOLASA Jang. He is going to evaluate the patient for further treatment. Impression Primary Impression: Altered mental status Scribe Attestation The scribe's documentation has been prepared under my direction and personally reviewed by me in its entirety. I confirm that the note above accurately reflects all work, treatment, procedures, and medical decision making performed by me. Departure Information Dispostion Being Evaluated By Hospitalist Referrals Dank Carrillo M.D. (PCP) Problem Qualifiers Primary Impression: Altered mental status Altered mental status type: unspecified Qualified Codes: R41.82 - Altered mental status, unspecified
--- NOTE | 2017-03-02 07:45 | DIAGNOSTIC IMAGING REPORT ---
CHEST ONE VIEW PORTABLE CLINICAL HISTORY: 81 years-old Female presenting with Pt c/o AMS. TECHNIQUE: Portable upright AP view of the chest was obtained. COMPARISON: 10/08/2016. FINDINGS: Atherosclerosis of the aortic arch. Cardiac silhouette normal in size. Mildly low lung volumes. Minimal left basilar opacity as on prior exam. No new focal infiltrate. No pleural large pleural effusion or pneumothorax. Osseous structures normal. Upper abdomen normal. IMPRESSION: 1. Chronic left basilar opacity, likely scarring. No new focal infiltrate to suggest acute cardiopulmonary disease. Electronically signed by: Vu Turcios M.D. 03/02/2017 7:43 AM Dictated Date/Time: 03/02/2017 7:42 AM
[2017-03-02 07:51] LABS: BASO % 0.3 %; BASO ABS # 0.04 K/uL (0-0.2); COMPLETE YES; EOS % 2.3 %; HEMATOCRIT 38.7 % (37-47); IG% 0.6 %; LYMPH % 20.9 %; LYMPH ABS # 2.44 K/uL (1.2-3.4); MEAN CELL VOLUME 91.1 fL (80-100); MEAN CORPUSCULAR HEMOGLOBIN 30.8 pg (25-34); MEAN CORPUSCULAR HGB CONC 33.9 g/dl (32-36); MEAN PLATELET VOLUME 10.6 fL (7.4-10.4); MONO % 9.5 %; NEUT % 66.4 %; PLATELET COUNT 219 K/uL (130-400); RED BLOOD COUNT 4.25 M/uL (4.2-5.4); WHITE BLOOD COUNT 11.67 K/uL (4.8-10.8)
[2017-03-02 08:06] LABS: BLOOD UREA NITROGEN 19 mg/dl (7-18); CREATININE 1.06 mg/dl (0.60-1.20); GLUCOSE 104 mg/dl (70-99)
[2017-03-02 08:07] LABS: ALT/SGPT 58 U/L (12-78); BUN/CREATININE RATIO 17.9 (10-20); CALCIUM 8.7 mg/dl (8.5-10.1); CARBON DIOXIDE 26 mmol/L (21-32); CHLORIDE 107 mmol/L (98-107); POTASSIUM 3.3 mmol/L (3.5-5.1); SODIUM 142 mmol/L (136-145)
[2017-03-02] MEDS ORDERED: POTASSIUM CHLORIDE 20 MEQ/15 ML UDC PO STA (08:12)
[2017-03-02 08:17] LABS: URINE APPEARANCE CLEAR (CLEAR); URINE BILIRUBIN NEG (NEG); URINE COLOR YELLOW; URINE NITRITE NEG (NEG); URINE SPECIFIC GRAVITY 1.018 (1.000-1.030); UROBILINOGEN NEG (NEG); ZZUR CULT IF INDIC CLEAN CATCH YES
[2017-03-02 08:17] LABS: ALKALINE PHOSPHATASE 99 U/L (45-117); AST/SGOT 38 U/L (15-37); CKMB/CK RATIO 2.7 (0-3.0); THYROID STIMULATING HORMONE < 0.005 uIu/ml (0.300-4.500)
[2017-03-02 08:23] LABS: MANUAL MICROSCOPIC REQUIRED? NO; REVIEW REQ? NO
[2017-03-02 08:49] LABS: BENZODIAZEPINE, URINE NEG (NEG); COCAINE,URINE NEG (NEG); PHENCYCLIDINE, URINE NEG (NEG)
[2017-03-02] MEDS ORDERED: ATV5X PO (08:52)
[2017-03-02] MEDS ORDERED: FLUO0.0566 TOP (08:52)
[2017-03-02] MEDS ORDERED: MUPI1CRE TOP (08:52)
--- NOTE | 2017-03-02 09:10 | DIAGNOSTIC IMAGING REPORT ---
HEAD WITHOUT CONTRAST (CT) CLINICAL HISTORY: 81 years-old Female presenting with Pt c/o AMS. TECHNIQUE: Multidetector CT imaging of the head was performed without the use of intravenous contrast. IV contrast: None. A dose lowering technique was used consistent with the principles of ALARA (as low as reasonably achievable). COMPARISON: 10/08/2016. CT DOSE (mGy.cm): The estimated cumulative dose is 537.48 mGy.cm. FINDINGS: Business Objects Analyst topogram: Unremarkable. Ventricles and sulci normal in size. Anterior left temporal lobe and superior right frontal lobe encephalomalacia, unchanged. Periventricular white matter hypoattenuation nonspecific but likely chronic small vessel ischemic change, unchanged. No mass effect or midline shift. No hemorrhage or acute territorial infarct. No extra-axial fluid collection. Postsurgical changes of the right frontal calvarium with prior craniotomy and mesh repair of a central craniectomy. Martin hole in the left frontal region also noted. Paranasal sinuses and mastoid air cells clear. IMPRESSION: 1. No acute intracranial pathology. 2. Chronic small vessel ischemic change. 3. Chronic postsurgical changes. Electronically signed by: Vu Turcios M.D. 03/02/2017 9:09 AM Dictated Date/Time: 03/02/2017 9:03 AM
[2017-03-02] MEDS ORDERED: CHLORTHALIDONE 25 MG TAB PO STA (10:46)
[2017-03-02] MEDS ORDERED: DONEPEZIL HCL 5 MG TAB PO STA (10:46)
[2017-03-02] MEDS ORDERED: LEVOTHYROXINE 125 MCG TAB PO STA (10:46)
[2017-03-02] MEDS ORDERED: DESMOPRESSIN ACETATE 0.1 MG TAB PO STA (10:46)
[2017-03-02] MEDS ORDERED: HYDROCORTISONE 10 MG TAB PO STA (10:46)
[2017-03-02] MEDS ORDERED: MIRABEGRON ER 25 MG TAB PO STA (10:46)
[2017-03-02] MEDS ORDERED: FAMOTIDINE 20 MG TAB PO STA (10:56)
[2017-03-02] MEDS ORDERED: ACETAMINOPHEN 325 MG TAB PO PRN (12:00)
[2017-03-02] MEDS ORDERED: INFLUENZA VIRUS QUAD VACCINE 0.5 ML SYR IM. ONE (12:00)
[2017-03-02] MEDS ORDERED: PNEUMOCOCCAL POLYSACCHARIDES 25 MCG/0.5 ML VIAL/SYR IM. ONE (12:00)
[2017-03-02] MEDS ORDERED: IV FLUIDS COMPLETED PRN (13:00)
[2017-03-02 13:05] VITALS: BP 157/84; PULSE 96; TEMP 36.4; O2SAT 98
[2017-03-02 14:00] VITALS: O2SAT 98; Ht 157.5 cm; Wt 77.0 kg
[2017-03-02 15:00] VITALS: BP 162/93; PULSE 98; TEMP 36.5; O2SAT 98
[2017-03-02 16:00] VITALS: O2SAT 98
[2017-03-02] MEDS: HYDROCORTISONE 10 MG TAB PO SCH (16:24)
[2017-03-02 20:08] VITALS: BP 123/68; PULSE 90; TEMP 36.4; O2SAT 94
[2017-03-02] MEDS: CIPROFLOXACIN / D5W 200 MG in PREMIXED IN D5W 100 ML IV SCH (21:02)
[2017-03-02] MEDS: POTASSIUM CHLORIDE 20 MEQ TABCR PO SCH (21:02)
[2017-03-02] MEDS: LATANOPROST 0.005% OP SOLN 2.5 ML BTL OPB SCH (21:03)
[2017-03-02] MEDS: DESMOPRESSIN ACETATE 0.1 MG TAB PO SCH (21:04)
[2017-03-02] MEDS: MIRABEGRON ER 25 MG TAB PO SCH (21:04)
[2017-03-03] VITALS: BP 146/90; PULSE 96; TEMP 36.6; O2SAT 94
[2017-03-03 04:56] VITALS: BP 132/81; PULSE 88; TEMP 36.6; O2SAT 95
[2017-03-03] MEDS: LEVOTHYROXINE 125 MCG TAB PO SCH (06:10)
[2017-03-03] MEDS: CALCITRIOL 0.25 MCG CAP PO SCH (07:54)
[2017-03-03] MEDS: CHOLECALCIFEROL 1000 INTER.UNIT TAB PO SCH (07:54)
[2017-03-03] MEDS: DOCUSATE SODIUM 100 MG CAP PO SCH (07:54)
[2017-03-03] MEDS: MULTIVITAMIN TAB PO SCH (07:54)
[2017-03-03] MEDS: HYDROCORTISONE 10 MG TAB PO SCH ×2 (07:54→16:00)
[2017-03-03] MEDS: CHLORTHALIDONE 25 MG TAB PO SCH (07:54)
[2017-03-03] MEDS: PANTOprazole SOD 40 MG TAB PO SCH (07:54)
[2017-03-03] MEDS: POTASSIUM CHLORIDE 20 MEQ TABCR PO SCH ×2 (07:55→20:30)
[2017-03-03] MEDS: CIPROFLOXACIN / D5W 200 MG in PREMIXED IN D5W 100 ML IV SCH ×2 (07:55→20:21)
[2017-03-03] MEDS: CALCIUM 600MG + VIT D 400 IU TAB PO SCH (07:55)
[2017-03-03 08:00] VITALS: O2SAT 95
[2017-03-03 08:45] VITALS: BP 136/66; PULSE 96; TEMP 36.6; O2SAT 95
[2017-03-03] MEDS: SODIUM CHLORIDE 0.65% NA SOLN 45 ML (OCEAN) NAE SCH (09:00)
[2017-03-03] MEDS ORDERED: DESMOPRESSIN ACETATE 0.1 MG TAB PO SCH (09:00)
[2017-03-03] MEDS ORDERED: MIRABEGRON ER 25 MG TAB PO SCH (09:00)
--- NOTE | 2017-03-03 10:07 | Neurology Consultation ---
Neurology Consultation Date of Consultation: Mar 03, 2017. Attending Physician: Michel Daniel M.D. Primary Care Physician: Dank Carrillo M.D. Reason for Consultation: Dementia, change in mental status History of Present Illness Source: patient, family, clinic records, hospital records The patient is an 81-year-old female who is known to me. She has a history of right frontal meningioma resection in 2013. She experienced an isolated seizure in the postoperative period and have been treated with Dilantin. This medication was discontinued several years ago. 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 I've been following this patient periodically, most recently for dementia characterized by poor short-term memory and behavioral dysregulation. The patient continues to live at home with her and has daily visiting home nursing care. I last evaluated this patient in clinic on 12/25/2016 for progressive cognitive impairment and recommended a trial of donepezil. The patient's had noted significant changes in her neurological status since starting this medication including worsening agitation and aggressive behavior. The medication was subsequently discontinued. I had discussed her case with the patient's primary care physician including the possibility of starting an SSRI. However, the patient's elected not to proceed with this recommendation given concerns over potential side effects. The patient presented to the emergency department yesterday for further assessment of her persistent agitation which reportedly has been getting worse over the past few weeks. She has been noted to have bouts of anger and has apparently made threats to her . Currently, the patient is resting comfortably in bed. She does not have any particular complaints. She denies headache, fever, vertigo , or any new specific weakness. Past Medical/Surgical History Medical Problems: (1) Acute kidney injury Status: Acute (2) VERO (acute kidney injury) Status: Acute (3) Altered mental status Status: Acute (4) Altered mental status Status: Acute (5) Altered mental status Status: Acute (6) Altered mental status Status: Acute (7) Altered mental status Status: Acute (8) Altered mental status Status: Acute (9) Ascending cholangitis Status: Acute (10) Atrial fibrillation Status: Acute (11) Dehydration Status: Acute (12) Dehydration Status: Acute (13) Dysarthria Status: Acute (14) Hearing voices Status: Acute (15) Hydronephrosis Status: Acute (16) Hydronephrosis Status: Acute (17) Hyponatremia Status: Acute (18) Kidney stone Status: Acute (19) Leukocytosis Status: Acute (20) Medication reaction Status: Acute (21) Nausea & vomiting Status: Acute (22) Pleural effusion Status: Acute (23) Right ureteral calculus Status: Acute (24) RUQ abdominal pain Status: Acute (25) Sepsis Status: Acute (26) Sepsis Status: Acute (27) Urinary tract infection Status: Acute Family History Family history notable for bladder cancer in the mother, breast cancer and the sister Father: heart disease Sibling(s): genitourinary disorder, pertinent history of Social History Drug Use: none Marital Status: Housing Status: lives with family Occupation Status: retired Allergies Coded Allergies: Amoxicillin (Verified Allergy, Intermediate, Swelling of Lips, 03/02/17) Ciprofloxacin (Verified Allergy, Intermediate, RASH, NAUSEA, 03/02/17) has tolerated levaquin without any notable problem (see September 2016 admission) Sulfa Antibiotics (Verified Allergy, Intermediate, RASH, 03/02/17) Biotin (Verified Allergy, Unknown, UNKN, 03/02/17) Cefepime (Verified Adverse Reaction, Severe, HALLUCINATIONS, 02/13/17) Diphenhydramine (Verified Adverse Reaction, Severe, HYPER INSOMNIA, ) Mirtazapine (Verified Adverse Reaction, Intermediate, altered mental status changes, 03/02/17) Nitrofurantoin (Verified Adverse Reaction, Intermediate, CHEST PAIN, CONFUSION, 03/02/17) Oxycodone (Verified Adverse Reaction, Mild, N/V, 03/02/17) Current Inpatient Medications Current Inpatient Medications Medications (Trade) Dose Ordered Sig/Natalee Route Start Time Stop Time Status Last Admin Dose Admin Acetaminophen (Tylenol Tab) 650 mg Q6H PRN PO 03/02/17 12:00 04/01/17 11:59 Calcitriol (Rocaltrol Cap) 0.25 mcg DAILY PO 03/03/17 09:00 04/02/17 08:59 03/03/17 07:54 0.25 MCG Chlorthalidone (Hygroton Tab) 12.5 mg DAILY PO 03/03/17 09:00 04/02/17 08:59 03/03/17 07:54 12.5 MG Cholecalciferol (Vitamin D Tab) 1,000 inter.unit DAILY PO 03/03/17 09:00 04/02/17 08:59 03/03/17 07:54 1,000 INTER.UNIT Docusate Sodium (coLACE CAP) 100 mg DAILY PO 03/03/17 09:00 04/02/17 08:59 03/03/17 07:54 100 MG Hydrocortisone (Cortef Tab) 5 mg DAILY@1600 PO 03/02/17 16:00 04/01/17 15:59 03/02/17 16:24 5 MG Hydrocortisone (Cortef Tab) 15 mg QAM PO 03/03/17 09:00 04/02/17 08:59 03/03/17 07:54 15 MG Latanoprost (Xalatan Oph Soln) 1 drops HS OPB 03/02/17 21:00 04/01/17 20:59 03/02/17 21:03 1 DROPS Levothyroxine Sodium (Synthroid Tab) 125 mcg DAILYBB PO 03/03/17 06:30 04/02/17 06:29 03/03/17 06:10 125 MCG Multivitamins (Multivitamin Tab) 1 tab DAILY PO 03/03/17 09:00 04/02/17 08:59 03/03/17 07:54 1 TAB Potassium Chloride (Klor-Con Tab) 20 meq BID PO 03/02/17 21:00 04/01/17 20:59 03/03/17 07:55 20 MEQ Sodium Chloride ([place] Nasal [place]) 1 sprays DAILY OSVALDO 03/03/17 09:00 04/02/17 08:59 Calcium/Vitamin D (Caltrate Plus Tab) 1 tab DAILY PO 03/03/17 09:00 04/02/17 08:59 03/03/17 07:55 1 TAB Pantoprazole Sodium (Protonix Tab) 40 mg QAM PO 03/03/17 09:00 04/02/17 08:59 03/03/17 07:54 40 MG Miscellaneous (Iv Fluids Completed) 1 ea PRN PRN N/A 03/02/17 13:00 03/02/18 12:59 Ciprofloxacin/ Dextrose 200 mg/ Prmx 100 ml @ 100 mls/hr Q12H IV 03/02/17 20:00 03/07/17 19:59 03/03/17 07:55 100 MLS/HR Mirabegron (Myrbetriq Er) 50 mg HS PO 03/02/17 21:00 04/01/17 20:59 03/02/17 21:04 50 MG Desmopressin Acetate (Desmopressin Acetate) 0.05 mg HS PO 03/02/17 21:00 04/02/17 08:59 03/02/17 21:04 0.05 MG Diphenhydramine HCl (Benadryl Cap) 25 mg Q6H PRN PO 03/02/17 20:30 04/01/17 20:29 Review of Systems Constitutional: No fever or chills Eyes: Chronic vision loss affecting the left eye as well as the right visual field ENT: No vertigo or tinnitus Cardiovascular: No chest pain or palpitations Respiratory: No cough and wheezing or shortness of breath Neurological: As per history of present illness Psychiatric: As per history of present illness A full 10 point review of systems was obtained from this patient with pertinent positives and negatives described in the history of present illness and listed above. All remaining systems reviewed and are negative. Physical Exam Vital Signs (Past 24 Hrs): Date Time Temp Pulse Resp B/P (MAP) Pulse Ox O2 Delivery O2 Flow Rate FiO2 03/03/17 08:00 95 Room Air 03/03/17 04:56 36.6 88 18 132/81 (98) 95 Room Air 03/03/17 04:00 Room Air 03/03/17 00:00 Room Air 03/03/17 00:00 36.6 96 18 146/90 (108) 94 Room Air 03/02/17 20:08 36.4 90 18 123/68 (86) 94 Room Air 03/02/17 20:00 Room Air 03/02/17 16:00 98 Room Air 03/02/17 15:00 36.5 98 18 162/93 (116) 98 Room Air 03/02/17 14:00 98 Room Air 03/02/17 13:05 36.4 96 18 157/84 (108) 98 Room Air 03/02/17 12:46 96 17 175/90 95 The patient is a well-developed, well-nourished, elderly female. She is lying comfortably in bed and in no acute distress. She appears nonagitated. Her family is at bedside. The patient is alert and oriented to person, place, month , and year. She misses the day of the week. Recent memory impaired, 1 out of 3 objects with recall. Remote memory intact. Attention normal. Concentration impaired. Unable to spell world backwards. Patient able to name objects and repeat phrases. She does not speak very much spontaneously. Patient exhibits an age-appropriate fund of knowledge in terms of vocabulary. Visual field is impaired. No vision with the left eye. There is a right visual field deficit noted with confrontation testing as well. Visual acuity for the right eye intact. The right pupil is round and react to light. Left pupil does not react directly to light. Eye movements intact. No nystagmus. Facial sensation intact bilaterally. There is no facial droop or facial asymmetry. Hearing intact to finger rub bilaterally. Palate elevates to midline. Shoulder shrug strength intact bilaterally. Tongue protrudes to midline. Sensation intact to light touch , temperature, vibration, and proprioception for the arms and legs bilaterally. Deep tendon reflexes are intact and symmetrical. Plantar responses downgoing bilaterally. There is no dysdiadochokinesia or dysmetria with finger to nose or heel to paz bilaterally. The left optic nerve is pale with direct ophthalmoscopy. Right optic nerve appears normal. No hemorrhages. There is no papilledema. Posterior segments normal. Carotid pulses normal bilaterally, no bruits to auscultation. Gait and station not tested due to safety concerns. Muscle strength and tone normal for the arms and legs bilaterally. No atrophy. No abnormal movements observed. Imaging I reviewed the images and radiologist's interpretation of the recently completed a CT of the head. No evidence of hemorrhage or other acute process. There are areas of encephalomalacia within the right frontal and left temporal lobe as well as post craniotomy changes over the right frontal region. This patient's last brain MRI was completed in March 2016 end revealed generalized atrophy, extensive periventricular and subcortical white matter disease as well as areas of encephalomalacia involving the right frontal and left temporal lobes and a chronic right cerebellar lacunar stroke. I reviewed both images and radiology report pertaining to this test as well. 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 Her dementia has been characterized by progressive cognitive impairment and behavioral dysregulation which has been most problematic recently. She did not tolerate a recent trial of Aricept. Her has ongoing concerns about further medication trials and has been reluctant to proceed with a trial of an SSRI recently. Plan I have recommended an up-to-date brain MRI to exclude stroke and other pathology that may otherwise explain her reported clinical decline. I've also recommended an EEG which can be completed tomorrow. My clinical suspicion for complex partial seizures or subclinical seizure activity is low, however. I agree with consultation with psychiatry to assist with medication management as it pertains to mood and behavior regulation for this patient in the context of her dementia. The neurology service will make further recommendations, if necessary, pending completion of the above testing. She may follow-up with me in clinic as well.
[2017-03-03] MEDS ORDERED: MICONAZOLE NITRATE POWDER 43 GM EXT PRN (10:45)
[2017-03-03 10:47] LABS: BASO % 0.3 %; BASO ABS # 0.04 K/uL (0-0.2); COMPLETE YES; EOS % 1.8 %; HEMATOCRIT 41.7 % (37-47); IG% 0.8 %; LYMPH % 9.8 %; LYMPH ABS # 1.24 K/uL (1.2-3.4); MEAN CELL VOLUME 90.8 fL (80-100); MEAN CORPUSCULAR HEMOGLOBIN 30.7 pg (25-34); MEAN CORPUSCULAR HGB CONC 33.8 g/dl (32-36); MEAN PLATELET VOLUME 10.8 fL (7.4-10.4); MONO % 8.7 %; NEUT % 78.6 %; PLATELET COUNT 239 K/uL (130-400); RED BLOOD COUNT 4.59 M/uL (4.2-5.4); WHITE BLOOD COUNT 12.65 K/uL (4.8-10.8)
[2017-03-03] MEDS ORDERED: GLUCAGON FOR INJ 1 MG VIAL SQ PRN (11:00)
[2017-03-03] MEDS ORDERED: DEXTROSE 50% 50 ML SYR IV PRN (11:00)
[2017-03-03] MEDS ORDERED: GLUCOSE 40% GEL 15 GM TUBE PO PRN (11:00)
[2017-03-03] MEDS ORDERED: GLUCOSE 10 TABS/TUBE PO PRN (11:00)
--- NOTE | 2017-03-03 11:22 | Psychiatric Consultation ---
Consultation Date of Consultation Mar 03, 2017. Chief Complaint "agitated behaviors". History of Present Illness Yoav is an 81-year-old female seen as an outpt by Dr. 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 She has dementia with main concerns of poor short-term memory and behavioral dysregulation. The patient continues to live at home with her and has daily visiting home nursing care. She is reported to have had a neck fracture when fell from her wheelchair while at Rehab in the past. Pt is unable to provide history due to her cognitive impairments. did awaken pt and attempt to obtain basic history. Pt was calm in engagement but limited in providing information. Information obtained from and medical record. Pt has been placed on Aricept on Dec 26 2016 and at first seem to tolerate the med with perhaps some improvements other memory per . However by early January the improvements were no longer present and pt was starting to have disturbance of her sleep and some periods of agitated behaviors that have worsened in severity and frequency during the past few weeks to an unmanageable level leading to ER assessment and medical admission. Last dose of Aricept was taken on 02/27 and has been held since then. Pt was quite agitated and belligerent yesterday. She did receive an haldol m5g dose 03/02 morning due to her agitated behaviors. Today she is calm and off and on sleeping. She eat breakfast this morning. Her appetite and eating has been normal throughout the past few months. Past Psychiatric History Current OP Treatment: no current treatment Prior OP Treatment: no prior treatment Prior Psych Hospitalizations: none Suicide Attempts: No Past Medical/Surgical History History of Concussion/Seizure: Yes history of right frontal meningioma resection in 2013. She experienced an isolated seizure in the postoperative period. 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 h/o neck fracture. h/o gallbladder removal Allergies Allergies: Coded Allergies: Amoxicillin (Verified Allergy, Intermediate, Swelling of Lips, 03/02/17) Ciprofloxacin (Verified Allergy, Intermediate, RASH, NAUSEA, 03/02/17) has tolerated levaquin without any notable problem (see September 2016 admission) Sulfa Antibiotics (Verified Allergy, Intermediate, RASH, 03/02/17) Biotin (Verified Allergy, Unknown, UNKN, 03/02/17) Cefepime (Verified Adverse Reaction, Severe, HALLUCINATIONS, 02/13/17) Diphenhydramine (Verified Adverse Reaction, Severe, HYPER INSOMNIA, ) Mirtazapine (Verified Adverse Reaction, Intermediate, altered mental status changes, 03/02/17) Nitrofurantoin (Verified Adverse Reaction, Intermediate, CHEST PAIN, CONFUSION, 03/02/17) Oxycodone (Verified Adverse Reaction, Mild, N/V, 03/02/17) Home Medications Scheduled Alendronate Sodium (Alendronate Sodium), 70 MG PO WK Calcitriol (Calcitriol), 0.25 MCG PO DAILY Calcium Carbonate-Cholecalcife (Caltrate 600+D), 1 TAB PO DAILY Chlorthalidone (Hygroton), 12.5 MG PO DAILY Cholecalciferol (Vitamin D-3), 1,000 INTER.UNIT PO DAILY Desmopressin Acetate (Desmopressin Acetate), 0.5 TAB PO DAILY Docusate Sodium (Docusate Sodium), 100 MG PO DAILY Donepezil Hydrochloride (Donepezil Hcl), 1 TAB PO HS Fluocinonide (Fluocinonide), 1 APPLN TOP BID Hydrocortisone (Cortef), 15 MG PO QAM Hydrocortisone (Cortef), 5 MG PO 1600 Lactic Acid (Ammonium Lactate) (Ammonium Lactate), 1 APPLN TOP UD Latanoprost (Latanoprost), 1 DROP OPB HS Levothyroxine Sodium (Levothyroxine Sodium), 125 MCG PO DAILY Lorazepam (Lorazepam), 0.5 TAB PO QPM Mirabegron (Myrbetriq Er), 1 TAB PO DAILY Multivitamin (Multivitamin), 1 TAB PO DAILY Mupirocin Calcium (Topical) (Mupirocin), 1 APPLN TOP BID Omeprazole (Prilosec), 20 MG PO QAM Polyethylene Glycol-Propylene (Systane Ultra), 1 DROP OP Q4-6 HRS Potassium Chloride Microencaps (Potassium Chloride Er), 20 MEQ PO BID Probiotic Product (Align), 1 CAP PO DAILY Saline ([place] Nasal [place]), 1 SPRAY OSVALDO UD Scheduled PRN Acetaminophen (Tylenol), 650 MG PO Q6H PRN for Pain Menthol (Topical Analgesic) (Biofreeze), 1 APPLN TOP UD PRN for Pain Polyethylene Glycol 3350 (Miralax), 17 GM PO DAILY PRN for Constipation Family History Bladder cancer MOTHER Breast cancer SISTER FH: kidney disease FHx: heart disease Skin cancer MOTHER Alcohol Use Alcohol Use In Past 12 Months: No Smoking Use Smoking Status: Never Smoker Personal History Psychological Trauma History: Denies Hx Traumatic Event Examination Vital Signs Vital Signs Past 12 Hours Date Time Temp Pulse Resp B/P (MAP) Pulse Ox O2 Delivery O2 Flow Rate FiO2 03/03/17 08:45 36.6 96 18 136/66 (89) 95 Room Air 03/03/17 08:00 95 Room Air 03/03/17 04:56 36.6 88 18 132/81 (98) 95 Room Air 03/03/17 04:00 Room Air 03/03/17 00:00 Room Air 03/03/17 00:00 36.6 96 18 146/90 (108) 94 Room Air Laboratory Results Last 24 Hours Test 03/03/17 10:34 White Blood Count 12.65 K/uL Red Blood Count 4.59 M/uL Hemoglobin 14.1 g/dL Hematocrit 41.7 % Mean Corpuscular Volume 90.8 fL Mean Corpuscular Hemoglobin 30.7 pg Mean Corpuscular Hemoglobin Concent 33.8 g/dl Platelet Count 239 K/uL Mean Platelet Volume 10.8 fL Neutrophils (%) (Auto) 78.6 % Lymphocytes (%) (Auto) 9.8 % Monocytes (%) (Auto) 8.7 % Eosinophils (%) (Auto) 1.8 % Basophils (%) (Auto) 0.3 % Neutrophils # (Auto) 9.94 K/uL Lymphocytes # (Auto) 1.24 K/uL Monocytes # (Auto) 1.10 K/uL Eosinophils # (Auto) 0.23 K/uL Basophils # (Auto) 0.04 K/uL RDW Standard Deviation 52.2 fL RDW Coefficient of Variation 15.7 % Immature Granulocyte % (Auto) 0.8 % Immature Granulocyte # (Auto) 0.10 K/uL Mental Examination During interview pt is: other (was asleep, easily awakened, oriented to person and partial to time and to being in the hospital, not agitated) Appearance: other (hospital gown ) Eye contact is: fair Motor behavior is: other (seating in chair, no abnormal movements ) Speech: other (limited) Affect: mood congruent Mood is: other ("ok, don't think I need to be in the hospital ") Suicidal thought are: denied Homicidal thoughts are: denied Cognition: other (memory and attention sigfnicantly impaired ) Insight: severely impaired Judgement: impaired Impression / Recommendations Impression multifactorial dementia with some vision field loss worsening agitated behaviors lead to medical admission neuro consult occurred by provider who follows her as an outpt MRI and EEG pending Risk Factors Assessment : Yes Health problems: Yes Previous attempt: No Smoker: No Protective Factors Assessment Employed: No Recommendations Agitated Behavior Reviewed medical records including neurological consult by Dr Garcia. Would defer management of underlying dementia concerns to neurological and primary team. Given dementia would encourage behavioral interventions for those with dementia/delirium and consideration of further prn haldol doses if severe agitated behaviors were to resume. pt is on Ativan 0.5mg once a day and this medication can sometimes worsen agitated behaviors in pt's with dementia so advised consideration of potential benefits over potential adverse effects. Aricept being held with last dose reported to be given on 02/27 and this medication might have been an aggravating factor to pt's recent behaviors.
[2017-03-03 11:23] LABS: BUN/CREATININE RATIO 14.4 (10-20); CALCIUM 8.9 mg/dl (8.5-10.1); CREATININE 1.13 mg/dl (0.60-1.20); MAGNESIUM 2.1 mg/dl (1.8-2.4); POTASSIUM 3.5 mmol/L (3.5-5.1)
[2017-03-03 11:24] LABS: PHOSPHORUS 1.9 mg/dl (2.5-4.9)
--- NOTE | 2017-03-03 12:23 | Progress Note ---
Subjective Date of Service: Mar 03, 2017. Subjective Pt evaluation today including: conversation w/ patient, conversation w/ family , physical exam, chart review, lab review, review of studies, review of inpatient medication list Pain: none PO Intake: good Voiding: pizarro catheter in place Patient is seen and examined by me. Pt denies cp,sob, dizziness, palpitation , nausea, vomiting and diarrhea. Pt denies any urinary symptoms at present. Awake , alert and oriented to self Problem List Medical Problems: (1) Acute kidney injury Status: Acute (2) VERO (acute kidney injury) Status: Acute (3) Altered mental status Status: Acute (4) Altered mental status Status: Acute (5) Altered mental status Status: Acute (6) Altered mental status Status: Acute (7) Altered mental status Status: Acute (8) Altered mental status Status: Acute (9) Ascending cholangitis Status: Acute (10) Atrial fibrillation Status: Acute (11) Dehydration Status: Acute (12) Dehydration Status: Acute (13) Dysarthria Status: Acute (14) Hearing voices Status: Acute (15) Hydronephrosis Status: Acute (16) Hydronephrosis Status: Acute (17) Hyponatremia Status: Acute (18) Kidney stone Status: Acute (19) Leukocytosis Status: Acute (20) Medication reaction Status: Acute (21) Nausea & vomiting Status: Acute (22) Pleural effusion Status: Acute (23) Right ureteral calculus Status: Acute (24) RUQ abdominal pain Status: Acute (25) Sepsis Status: Acute (26) Sepsis Status: Acute (27) Urinary tract infection Status: Acute Review of Systems All Other Systems: Reviewed and Negative Medications Medications (Trade) Dose Ordered Sig/Natalee Route Start Time Stop Time Status Last Admin Dose Admin Calcitriol (Rocaltrol Cap) 0.25 mcg DAILY PO 03/03/17 09:00 04/02/17 08:59 03/03/17 07:54 0.25 MCG Chlorthalidone (Hygroton Tab) 12.5 mg DAILY PO 03/03/17 09:00 04/02/17 08:59 03/03/17 07:54 12.5 MG Cholecalciferol (Vitamin D Tab) 1,000 inter.unit DAILY PO 03/03/17 09:00 04/02/17 08:59 03/03/17 07:54 1,000 INTER.UNIT Docusate Sodium (coLACE CAP) 100 mg DAILY PO 03/03/17 09:00 04/02/17 08:59 03/03/17 07:54 100 MG Hydrocortisone (Cortef Tab) 5 mg DAILY@1600 PO 03/02/17 16:00 04/01/17 15:59 03/02/17 16:24 5 MG Hydrocortisone (Cortef Tab) 15 mg QAM PO 03/03/17 09:00 04/02/17 08:59 03/03/17 07:54 15 MG Latanoprost (Xalatan Oph Soln) 1 drops HS OPB 03/02/17 21:00 04/01/17 20:59 03/02/17 21:03 1 DROPS Levothyroxine Sodium (Synthroid Tab) 125 mcg DAILYBB PO 03/03/17 06:30 04/02/17 06:29 03/03/17 06:10 125 MCG Multivitamins (Multivitamin Tab) 1 tab DAILY PO 03/03/17 09:00 04/02/17 08:59 03/03/17 07:54 1 TAB Potassium Chloride (Klor-Con Tab) 20 meq BID PO 03/02/17 21:00 04/01/17 20:59 03/03/17 07:55 20 MEQ Calcium/Vitamin D (Caltrate Plus Tab) 1 tab DAILY PO 03/03/17 09:00 04/02/17 08:59 03/03/17 07:55 1 TAB Pantoprazole Sodium (Protonix Tab) 40 mg QAM PO 03/03/17 09:00 04/02/17 08:59 03/03/17 07:54 40 MG Ciprofloxacin/ Dextrose 200 mg/ Prmx 100 ml @ 100 mls/hr Q12H IV 03/02/17 20:00 03/07/17 19:59 03/03/17 07:55 100 MLS/HR Mirabegron (Myrbetriq Er) 50 mg HS PO 03/02/17 21:00 04/01/17 20:59 03/02/17 21:04 50 MG Desmopressin Acetate (Desmopressin Acetate) 0.05 mg HS PO 03/02/17 21:00 04/02/17 08:59 03/02/17 21:04 0.05 MG Objective Vital Signs Date Time Temp Pulse Resp B/P (MAP) Pulse Ox O2 Delivery O2 Flow Rate FiO2 03/03/17 08:45 36.6 96 18 136/66 (89) 95 Room Air 03/03/17 08:00 95 Room Air 03/03/17 04:56 36.6 88 18 132/81 (98) 95 Room Air 03/03/17 04:00 Room Air 03/03/17 00:00 Room Air 03/03/17 00:00 36.6 96 18 146/90 (108) 94 Room Air 03/02/17 20:08 36.4 90 18 123/68 (86) 94 Room Air 03/02/17 20:00 Room Air 03/02/17 16:00 98 Room Air 03/02/17 15:00 36.5 98 18 162/93 (116) 98 Room Air 03/02/17 14:00 98 Room Air 03/02/17 13:05 36.4 96 18 157/84 (108) 98 Room Air 03/02/17 12:46 96 17 175/90 95 Physical Exam General Appearance: no apparent distress Eyes: EOMI Neck: supple Cardiovascular: regular rate, rhythm, no edema, no murmur Abdomen: normal bowel sounds, soft Extremities: no pedal edema, no calf tenderness Neurologic/Psychiatric: upholstery sewer II-XII nml as tested, no motor/sensory deficits, alert, normal mood/affect Skin: normal color, warm/dry, no rash Lymphatic: no adenopathy Laboratory Results Last 24 Hours Test 03/03/17 10:34 White Blood Count 12.65 K/uL Red Blood Count 4.59 M/uL Hemoglobin 14.1 g/dL Hematocrit 41.7 % Mean Corpuscular Volume 90.8 fL Mean Corpuscular Hemoglobin 30.7 pg Mean Corpuscular Hemoglobin Concent 33.8 g/dl Platelet Count 239 K/uL Mean Platelet Volume 10.8 fL Neutrophils (%) (Auto) 78.6 % Lymphocytes (%) (Auto) 9.8 % Monocytes (%) (Auto) 8.7 % Eosinophils (%) (Auto) 1.8 % Basophils (%) (Auto) 0.3 % Neutrophils # (Auto) 9.94 K/uL Lymphocytes # (Auto) 1.24 K/uL Monocytes # (Auto) 1.10 K/uL Eosinophils # (Auto) 0.23 K/uL Basophils # (Auto) 0.04 K/uL RDW Standard Deviation 52.2 fL RDW Coefficient of Variation 15.7 % Immature Granulocyte % (Auto) 0.8 % Immature Granulocyte # (Auto) 0.10 K/uL Sodium Level 136 mmol/L Potassium Level 3.5 mmol/L Chloride Level 103 mmol/L Carbon Dioxide Level 25 mmol/L Anion Gap 8.0 mmol/L Blood Urea Nitrogen 16 mg/dl Creatinine 1.13 mg/dl Est Creatinine Clear Calc Drug Dose 38.2 ml/min Estimated GFR () 53.2 Estimated GFR (Non- 45.9 BUN/Creatinine Ratio 14.4 Random Glucose 173 mg/dl Calcium Level 8.9 mg/dl Phosphorus Level 1.9 mg/dl Magnesium Level 2.1 mg/dl Assessment and Plan This is an 81-year-old female with a UTI and 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 UTI -- will continue antibiotics for now pending culture results. -- Pt has advance dementia but not delirium -- continue ciprofloxacin for now. -- 1 more day in observation. Dementia -- Management and treatment as per Neurology -- Neurology consult appreciatedDispo -- MRI and EEG Depression -- Talk about SSRI is reluctant to start the medication. -- will benefit from Neuro psychiatric evaluation as outpatient -- PCP can arrange the consult out patient DI -- Serum Na is 142 -- Continue desmopressin for now -- Follow with Endo as outpatient. Osteoporosis -- Continue home medications for now. Dispo: Can be discharge from OB tomorrow with PO antibiotics for UTI. Continued [facility] stay due to: multiple IV medications needed Discharge planning: home
[2017-03-03] MEDS: INSULIN ASPART 100 UNITS/ML 3 ML PEN SC SCH ×3 (13:18→20:41)
[2017-03-03] MEDS ORDERED: ALENDRONATE SODIUM 70 MG TAB PO SCH (16:00)
--- NOTE | 2017-03-03 17:04 | DIAGNOSTIC IMAGING REPORT ---
BRAIN WITHOUT CONTRAST HISTORY: 81 years-old Female change in mental status, rule out stroke acute altered mental status. History of prior meningioma resection in 2013. Prior appendectomy cleft cyst removal in 2014. COMPARISON: Brain MR 04/10/2016 TECHNIQUE: Multiplanar multisequence MRI the brain was obtained without contrast. Only knotting machine operator portable localizer images, sagittal T1 FLAIR, axial diffusion-weighted, axial ADC map and axial T2 images of the brain were obtained. Technologist reports that the MRI scanner malfunctioned and the exam was unable to be completed in its entirety. FINDINGS: There is no restricted diffusion to suggest acute ischemia. The midline structures including the corpus callosum, brainstem, optic chiasm, pituitary and pineal glands are unremarkable in the sagittal T1 sequence. There is no cerebellar tonsillar herniation. Advanced degenerative changes of the imaged upper cervical spine are noted. 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 There is mild diffuse thickening of the pachymeninges which appears unchanged. Post surgical changes are noted within the bilateral calvarium. Moderate atrophy with extensive background chronic microvascular ischemic changes are redemonstrated. No midline shift, hydrocephalus or intracranial mass identified on this limited study. The major flow voids at the level of the skull base are patent. Mastoid air cells are clear. Small left los bullosa. Mild mucosal thickening of the ethmoid air cells and nasal turbinates. IMPRESSION: 1. Limited study secondary to MRI scanner malfunction with only a few sequences obtained. 2. Within the limitations of the study, no acute intracranial abnormality identified. No acute ischemia. 3. Atrophy with chronic microvascular ischemic changes. 4. Postoperative changes as above. The above report was generated using voice recognition software. It may contain grammatical, syntax or spelling errors. Electronically signed by: Brayan Emanuel M.D. 03/03/2017 5:03 PM Dictated Date/Time: 03/03/2017 4:53 PM
[2017-03-03 17:06] VITALS: BP 138/67; PULSE 90; TEMP 36.8; O2SAT 95
[2017-03-03] MEDS: LATANOPROST 0.005% OP SOLN 2.5 ML BTL OPB SCH (20:28)
[2017-03-03] MEDS: MIRABEGRON ER 25 MG TAB PO SCH (20:29)
[2017-03-03] MEDS: DESMOPRESSIN ACETATE 0.1 MG TAB PO SCH (20:29)
[2017-03-04 00:10] VITALS: BP 116/75; PULSE 101; TEMP 36.7; O2SAT 94
[2017-03-04] MEDS: LEVOTHYROXINE 125 MCG TAB PO SCH (05:44)
[2017-03-04] MEDS: INSULIN ASPART 100 UNITS/ML 3 ML PEN SC SCH ×4 (06:30→21:32)
[2017-03-04 07:42] VITALS: BP 137/83; PULSE 82; TEMP 36.6; O2SAT 96
[2017-03-04] MEDS: DOCUSATE SODIUM 100 MG CAP PO SCH (08:46)
[2017-03-04] MEDS: PANTOprazole SOD 40 MG TAB PO SCH (08:46)
[2017-03-04] MEDS: CIPROFLOXACIN / D5W 200 MG in PREMIXED IN D5W 100 ML IV SCH ×2 (08:46→21:28)
[2017-03-04] MEDS: MULTIVITAMIN TAB PO SCH (08:46)
[2017-03-04] MEDS: CHOLECALCIFEROL 1000 INTER.UNIT TAB PO SCH (08:46)
[2017-03-04] MEDS: POTASSIUM CHLORIDE 20 MEQ TABCR PO SCH ×2 (08:46→21:34)
[2017-03-04] MEDS: CHLORTHALIDONE 25 MG TAB PO SCH (08:47)
[2017-03-04] MEDS: CALCIUM 600MG + VIT D 400 IU TAB PO SCH (08:47)
[2017-03-04] MEDS: SODIUM CHLORIDE 0.65% NA SOLN 45 ML (OCEAN) NAE SCH (08:47)
[2017-03-04] MEDS: CALCITRIOL 0.25 MCG CAP PO SCH (08:47)
[2017-03-04] MEDS: HYDROCORTISONE 10 MG TAB PO SCH ×2 (08:47→16:04)
--- NOTE | 2017-03-04 09:01 | EEG Procedure Note ---
EEG Procedure Note Date of Service Mar 04, 2017. Start / End Times Start Time: 8:11 AM End Time: 8:31 AM Referring Physician Ryne Mann History 81-year-old female who presents with change in mental status. EEG for further evaluation of possible seizure etiology. Home Medication List Scheduled Alendronate Sodium (Alendronate Sodium), 70 MG PO WK Calcitriol (Calcitriol), 0.25 MCG PO DAILY Calcium Carbonate-Cholecalcife (Caltrate 600+D), 1 TAB PO DAILY Chlorthalidone (Hygroton), 12.5 MG PO DAILY Cholecalciferol (Vitamin D-3), 1,000 INTER.UNIT PO DAILY Desmopressin Acetate (Desmopressin Acetate), 0.5 TAB PO DAILY Docusate Sodium (Docusate Sodium), 100 MG PO DAILY Donepezil Hydrochloride (Donepezil Hcl), 1 TAB PO HS Fluocinonide (Fluocinonide), 1 APPLN TOP BID Hydrocortisone (Cortef), 15 MG PO QAM Hydrocortisone (Cortef), 5 MG PO 1600 Lactic Acid (Ammonium Lactate) (Ammonium Lactate), 1 APPLN TOP UD Latanoprost (Latanoprost), 1 DROP OPB HS Levothyroxine Sodium (Levothyroxine Sodium), 125 MCG PO DAILY Lorazepam (Lorazepam), 0.5 TAB PO QPM Mirabegron (Myrbetriq Er), 1 TAB PO DAILY Multivitamin (Multivitamin), 1 TAB PO DAILY Mupirocin Calcium (Topical) (Mupirocin), 1 APPLN TOP BID Omeprazole (Prilosec), 20 MG PO QAM Polyethylene Glycol-Propylene (Systane Ultra), 1 DROP OP Q4-6 HRS Potassium Chloride Microencaps (Potassium Chloride Er), 20 MEQ PO BID Probiotic Product (Align), 1 CAP PO DAILY Saline ([place] Nasal [place]), 1 SPRAY OSVALDO UD Scheduled PRN Acetaminophen (Tylenol), 650 MG PO Q6H PRN for Pain Menthol (Topical Analgesic) (Biofreeze), 1 APPLN TOP UD PRN for Pain Polyethylene Glycol 3350 (Miralax), 17 GM PO DAILY PRN for Constipation Inpatient Medication List Current Inpatient Medications Medications (Trade) Dose Ordered Sig/Natalee Route Start Time Stop Time Status Last Admin Dose Admin Acetaminophen (Tylenol Tab) 650 mg Q6H PRN PO 03/02/17 12:00 04/01/17 11:59 Calcitriol (Rocaltrol Cap) 0.25 mcg DAILY PO 03/03/17 09:00 04/02/17 08:59 03/04/17 08:47 0.25 MCG Chlorthalidone (Hygroton Tab) 12.5 mg DAILY PO 03/03/17 09:00 04/02/17 08:59 03/04/17 08:47 12.5 MG Cholecalciferol (Vitamin D Tab) 1,000 inter.unit DAILY PO 03/03/17 09:00 04/02/17 08:59 03/04/17 08:46 1,000 INTER.UNIT Docusate Sodium (coLACE CAP) 100 mg DAILY PO 03/03/17 09:00 04/02/17 08:59 03/04/17 08:46 100 MG Hydrocortisone (Cortef Tab) 5 mg DAILY@1600 PO 03/02/17 16:00 04/01/17 15:59 03/03/17 16:00 5 MG Hydrocortisone (Cortef Tab) 15 mg QAM PO 03/03/17 09:00 04/02/17 08:59 03/04/17 08:47 15 MG Latanoprost (Xalatan Oph Soln) 1 drops HS OPB 03/02/17 21:00 04/01/17 20:59 03/03/17 20:28 1 DROPS Levothyroxine Sodium (Synthroid Tab) 125 mcg DAILYBB PO 03/03/17 06:30 04/02/17 06:29 03/04/17 05:44 125 MCG Multivitamins (Multivitamin Tab) 1 tab DAILY PO 03/03/17 09:00 04/02/17 08:59 03/04/17 08:46 1 TAB Potassium Chloride (Klor-Con Tab) 20 meq BID PO 03/02/17 21:00 04/01/17 20:59 03/04/17 08:46 20 MEQ Sodium Chloride ([place] Nasal [place]) 1 sprays DAILY OSVALDO 03/03/17 09:00 04/02/17 08:59 03/04/17 08:47 1 SPRAYS Calcium/Vitamin D (Caltrate Plus Tab) 1 tab DAILY PO 03/03/17 09:00 04/02/17 08:59 03/04/17 08:47 1 TAB Pantoprazole Sodium (Protonix Tab) 40 mg QAM PO 03/03/17 09:00 04/02/17 08:59 03/04/17 08:46 40 MG Miscellaneous (Iv Fluids Completed) 1 ea PRN PRN N/A 03/02/17 13:00 03/02/18 12:59 Ciprofloxacin/ Dextrose 200 mg/ Prmx 100 ml @ 100 mls/hr Q12H IV 03/02/17 20:00 03/07/17 19:59 03/04/17 08:46 100 MLS/HR Mirabegron (Myrbetriq Er) 50 mg HS PO 03/02/17 21:00 04/01/17 20:59 03/03/17 20:29 50 MG Desmopressin Acetate (Desmopressin Acetate) 0.05 mg HS PO 03/02/17 21:00 04/02/17 08:59 03/03/17 20:29 0.05 MG Diphenhydramine HCl (Benadryl Cap) 25 mg Q6H PRN PO 03/02/17 20:30 04/01/17 20:29 Miconazole Nitrate (Desenex Powder) 1 appln PRN PRN EXT 03/03/17 10:45 04/02/17 10:44 Insulin Aspart (novoLOG ASPART) SLIDING SCALE If C... ACHS SC 03/03/17 11:00 04/02/17 10:59 03/03/17 20:41 1 UNITS Glucose (Glucose 40% Gel) 15-30 GRAMS 15 GRAMS... UD PRN PO 03/03/17 11:00 04/02/17 10:59 Glucose (Glucose Chew Tab) 4-8 Tablets 4 Tabl... UD PRN PO 03/03/17 11:00 04/02/17 10:59 Dextrose (Dextrose 50% 50ML Syringe) 25-50ML OF 50% DW IV FOR... UD PRN IV 03/03/17 11:00 04/02/17 10:59 Glucagon (Glucagon Inj) 1 mg UD PRN SQ 03/03/17 11:00 04/02/17 10:59 Alendronate Sodium (Fosamax Tab) 70 mg Pederson@0700 PO 03/03/17 16:00 04/02/17 15:59 11/12/17 16:00 70 MG Description This is a 21 electrode EEG with a single channel dedicated to limited EKG. The electrodes were placed in accordance with the International 10-20 system. At the start of the recording the patient was in an awake state. Background was well organized and composed of symmetric mixed alpha and beta frequencies. There was a symmetric well-formed moderate amplitude 8-9Hz posterior dominant rhythm that was reactive to eye opening and closure. Hyperventilation and Intermittent photic stimulation were not done. There was no state changes or sleep transients. Interpretation This is a normal awake only routine EEG. There was no electrographic seizures or epileptiform discharges. Clinical Correlation A normal EEG does not rule out epilepsy if there is a strong clinical suspicion.
[2017-03-04 09:27] LABS: CALCIUM 8.6 mg/dl (8.5-10.1); CREATININE 1.16 mg/dl (0.60-1.20); POTASSIUM 3.3 mmol/L (3.5-5.1)
--- NOTE | 2017-03-04 10:41 | Neurology Progress Notes ---
Neurology Progress Note Date of Service Mar 04, 2017. Subjective Patient has no complaint of pain or headache. She is not dizzy. Nursing reports no new events. She was lethargic yesterday but is improved today. MRI of the brain was unremarkable with no new findings. EEG was normal during the wakeful state as well. I reviewed these reports and findings with the patient and her who is at bedside. Objective Date Time Temp Pulse Resp B/P (MAP) Pulse Ox O2 Delivery O2 Flow Rate FiO2 03/04/17 08:00 Room Air 03/04/17 07:42 36.6 82 18 137/83 (101) 96 03/04/17 00:10 36.7 101 18 116/75 (89) 94 Room Air 03/04/17 00:00 Room Air 03/03/17 20:00 Room Air 03/03/17 17:06 36.8 90 20 138/67 (90) 95 Room Air 03/03/17 16:00 Room Air Last 24 Hours Test 03/03/17 10:34 03/03/17 16:59 03/03/17 20:17 03/04/17 07:26 White Blood Count 12.65 K/uL Red Blood Count 4.59 M/uL Hemoglobin 14.1 g/dL Hematocrit 41.7 % Mean Corpuscular Volume 90.8 fL Mean Corpuscular Hemoglobin 30.7 pg Mean Corpuscular Hemoglobin Concent 33.8 g/dl Platelet Count 239 K/uL Mean Platelet Volume 10.8 fL Neutrophils (%) (Auto) 78.6 % Lymphocytes (%) (Auto) 9.8 % Monocytes (%) (Auto) 8.7 % Eosinophils (%) (Auto) 1.8 % Basophils (%) (Auto) 0.3 % Neutrophils # (Auto) 9.94 K/uL Lymphocytes # (Auto) 1.24 K/uL Monocytes # (Auto) 1.10 K/uL Eosinophils # (Auto) 0.23 K/uL Basophils # (Auto) 0.04 K/uL RDW Standard Deviation 52.2 fL RDW Coefficient of Variation 15.7 % Immature Granulocyte % (Auto) 0.8 % Immature Granulocyte # (Auto) 0.10 K/uL Sodium Level 136 mmol/L Potassium Level 3.5 mmol/L Chloride Level 103 mmol/L Carbon Dioxide Level 25 mmol/L Anion Gap 8.0 mmol/L Blood Urea Nitrogen 16 mg/dl Creatinine 1.13 mg/dl Est Creatinine Clear Calc Drug Dose 38.2 ml/min Estimated GFR () 53.2 Estimated GFR (Non- 45.9 BUN/Creatinine Ratio 14.4 Random Glucose 173 mg/dl Calcium Level 8.9 mg/dl Phosphorus Level 1.9 mg/dl Magnesium Level 2.1 mg/dl Bedside Glucose 164 mg/dl 198 mg/dl 109 mg/dl Test 03/04/17 08:40 Sodium Level 138 mmol/L Potassium Level 3.3 mmol/L Chloride Level 101 mmol/L Carbon Dioxide Level 25 mmol/L Anion Gap 11.0 mmol/L Blood Urea Nitrogen 14 mg/dl Creatinine 1.16 mg/dl Est Creatinine Clear Calc Drug Dose 37.2 ml/min Estimated GFR () 51.5 Estimated GFR (Non- 44.4 BUN/Creatinine Ratio 12.0 Random Glucose 204 mg/dl Calcium Level 8.6 mg/dl Free Thyroxine 1.78 ng/dl Imaging: BRAIN WITHOUT CONTRAST HISTORY: 81 years-old Female change in mental status, rule out stroke acute altered mental status. History of prior meningioma resection in 2013. Prior appendectomy cleft cyst removal in 2014. COMPARISON: Brain MR 04/10/2016 TECHNIQUE: Multiplanar multisequence MRI the brain was obtained without contrast. Only central office worker localizer images, sagittal T1 FLAIR, axial diffusion-weighted, axial ADC map and axial T2 images of the brain were obtained. Technologist reports that the MRI scanner malfunctioned and the exam was unable to be completed in its entirety. FINDINGS: There is no restricted diffusion to suggest acute ischemia. The midline structures including the corpus callosum, brainstem, optic chiasm, pituitary and pineal glands are unremarkable in the sagittal T1 sequence. There is no cerebellar tonsillar herniation. Advanced degenerative changes of the imaged upper cervical spine are noted. 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 There is mild diffuse thickening of the pachymeninges which appears unchanged. Post surgical changes are noted within the bilateral calvarium. Moderate atrophy with extensive background chronic microvascular ischemic changes are redemonstrated. No midline shift, hydrocephalus or intracranial mass identified on this limited study. The major flow voids at the level of the skull base are patent. Mastoid air cells are clear. Small left los bullosa. Mild mucosal thickening of the ethmoid air cells and nasal turbinates. IMPRESSION: 1. Limited study secondary to MRI scanner malfunction with only a few sequences obtained. 2. Within the limitations of the study, no acute intracranial abnormality identified. No acute ischemia. 3. Atrophy with chronic microvascular ischemic changes. 4. Postoperative changes as above. The above report was generated using voice recognition software. It may contain grammatical, syntax or spelling errors. Electronically signed by: Brayan Emanuel M.D. 03/03/2017 5:03 PM Exam: She is awake and alert. She has a blank face and stare with flat affect. She will follow one-step commands. Strength seems symmetrical in the limbs. There are no abnormal involuntary movements noted. There is no facial droop. Tongue is midline. Extraocular eye muscles seem intact without nystagmus. Current Inpatient Medications Medications (Trade) Dose Ordered Sig/Natalee Route Start Time Stop Time Status Last Admin Dose Admin Acetaminophen (Tylenol Tab) 650 mg Q6H PRN PO 03/02/17 12:00 04/01/17 11:59 Calcitriol (Rocaltrol Cap) 0.25 mcg DAILY PO 03/03/17 09:00 04/02/17 08:59 03/04/17 08:47 0.25 MCG Chlorthalidone (Hygroton Tab) 12.5 mg DAILY PO 03/03/17 09:00 04/02/17 08:59 03/04/17 08:47 12.5 MG Cholecalciferol (Vitamin D Tab) 1,000 inter.unit DAILY PO 03/03/17 09:00 04/02/17 08:59 03/04/17 08:46 1,000 INTER.UNIT Docusate Sodium (coLACE CAP) 100 mg DAILY PO 03/03/17 09:00 04/02/17 08:59 03/04/17 08:46 100 MG Hydrocortisone (Cortef Tab) 5 mg DAILY@1600 PO 03/02/17 16:00 04/01/17 15:59 03/03/17 16:00 5 MG Hydrocortisone (Cortef Tab) 15 mg QAM PO 03/03/17 09:00 04/02/17 08:59 03/04/17 08:47 15 MG Latanoprost (Xalatan Oph Soln) 1 drops HS OPB 03/02/17 21:00 04/01/17 20:59 03/03/17 20:28 1 DROPS Levothyroxine Sodium (Synthroid Tab) 125 mcg DAILYBB PO 03/03/17 06:30 04/02/17 06:29 03/04/17 05:44 125 MCG Multivitamins (Multivitamin Tab) 1 tab DAILY PO 03/03/17 09:00 04/02/17 08:59 03/04/17 08:46 1 TAB Potassium Chloride (Klor-Con Tab) 20 meq BID PO 03/02/17 21:00 04/01/17 20:59 03/04/17 08:46 20 MEQ Sodium Chloride ([place] Nasal [place]) 1 sprays DAILY OSVALDO 03/03/17 09:00 04/02/17 08:59 03/04/17 08:47 1 SPRAYS Calcium/Vitamin D (Caltrate Plus Tab) 1 tab DAILY PO 03/03/17 09:00 04/02/17 08:59 03/04/17 08:47 1 TAB Pantoprazole Sodium (Protonix Tab) 40 mg QAM PO 03/03/17 09:00 04/02/17 08:59 03/04/17 08:46 40 MG Miscellaneous (Iv Fluids Completed) 1 ea PRN PRN N/A 03/02/17 13:00 03/02/18 12:59 Ciprofloxacin/ Dextrose 200 mg/ Prmx 100 ml @ 100 mls/hr Q12H IV 03/02/17 20:00 03/07/17 19:59 03/04/17 08:46 100 MLS/HR Mirabegron (Myrbetriq Er) 50 mg HS PO 03/02/17 21:00 04/01/17 20:59 03/03/17 20:29 50 MG Desmopressin Acetate (Desmopressin Acetate) 0.05 mg HS PO 03/02/17 21:00 04/02/17 08:59 03/03/17 20:29 0.05 MG Diphenhydramine HCl (Benadryl Cap) 25 mg Q6H PRN PO 03/02/17 20:30 04/01/17 20:29 Miconazole Nitrate (Desenex Powder) 1 appln PRN PRN EXT 03/03/17 10:45 04/02/17 10:44 Insulin Aspart (novoLOG ASPART) SLIDING SCALE If C... ACHS SC 03/03/17 11:00 04/02/17 10:59 03/03/17 20:41 1 UNITS Glucose (Glucose 40% Gel) 15-30 GRAMS 15 GRAMS... UD PRN PO 03/03/17 11:00 04/02/17 10:59 Glucose (Glucose Chew Tab) 4-8 Tablets 4 Tabl... UD PRN PO 03/03/17 11:00 04/02/17 10:59 Dextrose (Dextrose 50% 50ML Syringe) 25-50ML OF 50% DW IV FOR... UD PRN IV 03/03/17 11:00 04/02/17 10:59 Glucagon (Glucagon Inj) 1 mg UD PRN SQ 03/03/17 11:00 04/02/17 10:59 Alendronate Sodium (Fosamax Tab) 70 mg Pederson@0700 PO 03/03/17 16:00 04/02/17 15:59 03/03/17 16:00 70 MG Impression 1. Progressive multifactorial dementia, likely secondary to extensive cerebral vascular disease and postsurgical encephalomalacia in the right frontal lobe This is stable overall. MRI of the brain showed no acute changes. EEG showed no seizure activity and was normal awake. Clinically she has progressive cognitive decline. 2. Post right frontal meningioma removal 2013, stable with no recurrence on MRI. Plan 1. There is no need for additional neurologic testing or treatment in this patient at this time. 2. Follow up with Dr. Mann as an outpatient. Please contact me if I can be of further assistance on this case otherwise.
[2017-03-04] MEDS ORDERED: ACETAMINOPHEN 325 MG TAB PO PRN (12:15)
[2017-03-04 15:05] VITALS: BP 118/75; PULSE 91; TEMP 36.6; O2SAT 94
--- NOTE | 2017-03-04 16:31 | Progress Note ---
Subjective Date of Service: Mar 04, 2017. Subjective Pt evaluation today including: conversation w/ patient, conversation w/ family , physical exam, chart review, lab review, review of studies, review of inpatient medication list Pt somnolent on exam at bedside Reports doing better per but not at baseline No distress noted Patient denies pain Problem List Medical Problems: (1) Acute kidney injury Status: Acute (2) VERO (acute kidney injury) Status: Acute (3) Altered mental status Status: Acute (4) Altered mental status Status: Acute (5) Altered mental status Status: Acute (6) Altered mental status Status: Acute (7) Altered mental status Status: Acute (8) Altered mental status Status: Acute (9) Ascending cholangitis Status: Acute (10) Atrial fibrillation Status: Acute (11) Dehydration Status: Acute (12) Dehydration Status: Acute (13) Dysarthria Status: Acute (14) Hearing voices Status: Acute (15) Hydronephrosis Status: Acute (16) Hydronephrosis Status: Acute (17) Hyponatremia Status: Acute (18) Kidney stone Status: Acute (19) Leukocytosis Status: Acute (20) Medication reaction Status: Acute (21) Nausea & vomiting Status: Acute (22) Pleural effusion Status: Acute (23) Right ureteral calculus Status: Acute (24) RUQ abdominal pain Status: Acute (25) Sepsis Status: Acute (26) Sepsis Status: Acute (27) Urinary tract infection Status: Acute Review of Systems Constitutional: No fever, No chills, No sweats, No weight loss, No weakness Eyes: No worsening of vision, No eye pain, No redness, No discharge Respiratory: No cough, No sputum, No wheezing, No shortness of breath, No dyspnea on exertion Cardiac: No chest pain, No orthopnea, No PND, No edema Abdomen: No pain, No nausea, No vomiting, No diarrhea, No constipation Musculoskeletal: No joint pain, No muscle pain, No swelling, No calf pain Female : No dysuria, No urinary frequency, No hematuria, No incontinence Neurologic: No memory loss, No paralysis, No weakness, No numbness/tingling Psychiatric: No depression symptoms, No anhedonism, No anxiety, No insomnia Endo: No fatigue, No excessive thirst Skin: No rash, No itch Objective Vital Signs Date Time Temp Pulse Resp B/P (MAP) Pulse Ox O2 Delivery O2 Flow Rate FiO2 03/04/17 15:05 36.6 91 18 118/75 (89) 94 03/04/17 08:00 Room Air 03/04/17 07:42 36.6 82 18 137/83 (101) 96 03/04/17 00:10 36.7 101 18 116/75 (89) 94 Room Air 03/04/17 00:00 Room Air 03/03/17 20:00 Room Air 03/03/17 17:06 36.8 90 20 138/67 (90) 95 Room Air Physical Exam General Appearance: WD/WN, no apparent distress Neck: supple, no adenopathy, thyroid normal, no JVD Respiratory/Chest: chest non-tender, lungs clear, normal breath sounds, no respiratory distress Cardiovascular: regular rate, rhythm, no edema, no gallop, no JVD Abdomen: normal bowel sounds, non tender, soft, no organomegaly Neurologic/Psychiatric: no motor/sensory deficits, alert, normal mood/affect, + disoriented Skin: normal color, warm/dry, no rash Lymphatic: no adenopathy Laboratory Results Last 24 Hours Test 03/03/17 16:59 03/03/17 20:17 03/04/17 07:26 03/04/17 08:40 Bedside Glucose 164 mg/dl 198 mg/dl 109 mg/dl Sodium Level 138 mmol/L Potassium Level 3.3 mmol/L Chloride Level 101 mmol/L Carbon Dioxide Level 25 mmol/L Anion Gap 11.0 mmol/L Blood Urea Nitrogen 14 mg/dl Creatinine 1.16 mg/dl Est Creatinine Clear Calc Drug Dose 37.2 ml/min Estimated GFR () 51.5 Estimated GFR (Non- 44.4 BUN/Creatinine Ratio 12.0 Random Glucose 204 mg/dl Calcium Level 8.6 mg/dl Free Thyroxine 1.78 ng/dl Test 03/04/17 11:26 Bedside Glucose 193 mg/dl Assessment and Plan This is an 81-year-old female with a UTI and 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 UTI --urine cx neg at this time, pt currently asymptomatic, will dc antibx --Pt has advance dementia but not delirium Dementia -- Management and treatment as per Neurology -- Neurology consult, MRI neg for stroke but limited, EEG no seizure activity noted Depression -- Talk about SSRI is reluctant to start this -- will benefit from Neuro psychiatric evaluation as outpatient -- PCP can arrange the consult out patient DI -- Serum Na is WNL -- Continue desmopressin for now -- Follow with Endo as outpatient. Osteoporosis -- Continue home medications for now. Hypothyroidism --Reduce synthroid medication at this time to 100 mcg daily Continued [facility] stay due to: multiple IV medications needed Discharge planning: home
[2017-03-04 16:34] VITALS: O2SAT 93
[2017-03-04] MEDS: LATANOPROST 0.005% OP SOLN 2.5 ML BTL OPB SCH (21:28)
[2017-03-04] MEDS: DESMOPRESSIN ACETATE 0.1 MG TAB PO SCH (21:29)
[2017-03-04] MEDS: MIRABEGRON ER 25 MG TAB PO SCH (21:31)
[2017-03-04 23:57] VITALS: BP 140/83; PULSE 88; TEMP 36.6; O2SAT 94
[2017-03-05] MEDS ORDERED: LEVOTHYROXINE 100 MCG TAB PO SCH (06:30)
[2017-03-05 07:36] VITALS: BP 125/76; PULSE 91; TEMP 36.7; O2SAT 94
[2017-03-05] MEDS: CIPROFLOXACIN / D5W 200 MG in PREMIXED IN D5W 100 ML IV SCH (07:55)
[2017-03-05] MEDS: CHLORTHALIDONE 25 MG TAB PO SCH (07:56)
[2017-03-05] MEDS: CHOLECALCIFEROL 1000 INTER.UNIT TAB PO SCH (07:57)
[2017-03-05] MEDS: CALCIUM 600MG + VIT D 400 IU TAB PO SCH (07:58)
[2017-03-05] MEDS: HYDROCORTISONE 10 MG TAB PO SCH (07:58)
[2017-03-05] MEDS: POTASSIUM CHLORIDE 20 MEQ TABCR PO SCH (07:59)
[2017-03-05] MEDS: MULTIVITAMIN TAB PO SCH (07:59)
[2017-03-05] MEDS: PANTOprazole SOD 40 MG TAB PO SCH (07:59)
[2017-03-05] MEDS: DOCUSATE SODIUM 100 MG CAP PO SCH (08:00)
[2017-03-05] MEDS: CALCITRIOL 0.25 MCG CAP PO SCH (08:00)
[2017-03-05] MEDS: INSULIN ASPART 100 UNITS/ML 3 ML PEN SC SCH ×2 (08:04→12:40)
[2017-03-05] MEDS: SODIUM CHLORIDE 0.65% NA SOLN 45 ML (OCEAN) NAE SCH (08:05)
[2017-03-05 09:44] LABS: BASO % 0.3 %; BASO ABS # 0.04 K/uL (0-0.2); COMPLETE YES; EOS % 2.9 %; HEMATOCRIT 40.6 % (37-47); LYMPH % 13.5 %; LYMPH ABS # 1.81 K/uL (1.2-3.4); MEAN CORPUSCULAR HEMOGLOBIN 30.8 pg (25-34); MEAN CORPUSCULAR HGB CONC 34.2 g/dl (32-36); MEAN PLATELET VOLUME 10.6 fL (7.4-10.4); NEUT % 71.3 %; PLATELET COUNT 218 K/uL (130-400); RED BLOOD COUNT 4.51 M/uL (4.2-5.4); WHITE BLOOD COUNT 13.41 K/uL (4.8-10.8)
[2017-03-05 10:07] LABS: BUN/CREATININE RATIO 13.3 (10-20); CALCIUM 8.7 mg/dl (8.5-10.1); CREATININE 1.15 mg/dl (0.60-1.20); POTASSIUM 3.3 mmol/L (3.5-5.1)
[2017-03-05] MEDS ORDERED: SYN100 PO (11:26)
--- NOTE | 2017-03-05 11:28 | Discharge Instructions ---
Discharge Instructions Date of Service Mar 05, 2017. Admission Reason for Admission: Altered Mental Status Discharge Discharge Diagnosis / Problem: Altered mental status Discharge Goals Goal(s): Decrease discomfort, Improve function, Increase independence, Improve disease control, Diagnostic testing, Therapeutic intervention, Prevent Disease Progression Activity Recommendations Activity Limitations: resume your previous activity Exercise/Sports Limitations: as tolerated . Instructions / Follow-Up Instructions / Follow-Up Patient to be discharged home Please note reduction in synthroid medication, new dose is 100 mcg to be taken once daily, prescription sent to pharmacy No further intervention at this time Follow up with Dr Carrillo in 1-2 weeks Current Hospital Diet Patient's current hospital diet: Regular Diet Discharge Diet Recommended Diet: Regular Diet Pending Studies Studies pending at discharge: no Medical Emergencies . Who to Call and When: Medical Emergencies: If at any time you feel your situation is an emergency, please call 911 immediately. . Non-Emergent Contact Non-Emergency issues call your: Primary Care Provider Call Non-Emergent contact if: you have any medication questions . . "Provider Documentation" section prepared by [place] Workman. . VTE Core Measure Inpt VTE Proph given/why not?: Ernst Herring, SCD's
[2017-03-05 11:47] VITALS: BP 125/76; PULSE 91; TEMP 36.7; O2SAT 94
--- NOTE | 2017-03-05 15:05 | Discharge Summary ---
Discharge Summary Date of Service Mar 05, 2017. Discharge Summary Admission Date: Mar 04, 2017 at 08:56 Discharge Date: Mar 05, 2017 Discharge Disposition: Home Principal Diagnosis: Dementia Immunizations: Have You Had Influenza Vaccine: No Influenza Vaccine Date: Feb 04, 2010 History of Tetanus Vaccine?: No History of Pneumococcal: YES- [place] 2008 History of Hepatitis B Vaccine: No Consultations: Neurology Medication Reconciliation New Medications: Levothyroxine Sodium (Synthroid) 100 Mcg Tab 100 MCG PO DAILYBB, #30 TAB Continued Medications: Acetaminophen (Tylenol) 325 Mg Tab 650 MG PO Q6H PRN for Pain, TAB Alendronate Sodium (Alendronate Sodium) 70 Mg Tab 70 MG PO WK TAKE THIS MEDICATION ONCE WEEKLY 30 TO 60 MINUTES PRIOR TO BREAKFAST OM AM EMPTY STOMACH. DO NOT LIE DOWN AFTER TAKING THIS MEDICATION. Calcitriol (Calcitriol) 0.25 Mcg Cap 0.25 MCG PO DAILY Calcium Carbonate-Cholecalcife (Caltrate 600+D) 1 Tab Tab 1 TAB PO DAILY Chlorthalidone (Hygroton) 25 Mg Tab 12.5 MG PO DAILY Cholecalciferol (Vitamin D-3) 1,000 Unit Tab 1000 INTER.UNIT PO DAILY Desmopressin Acetate (Desmopressin Acetate) 0.1 Mg Tab 0.5 TAB PO DAILY Docusate Sodium (Docusate Sodium) 100 Mg Cap 100 MG PO DAILY Fluocinonide (Fluocinonide) 0.05 % Leslie 1 APPLN TOP BID Hydrocortisone (Cortef) 10 Mg Tab 15 MG PO QAM, TAB Hydrocortisone (Cortef) 10 Mg Tab 5 MG PO 1600, TAB Lactic Acid (Ammonium Lactate) (Ammonium Lactate) 12 % Lot 1 APPLN TOP UD Latanoprost (Latanoprost) 37 Drops/2.5 Ml Soln 1 DROP OPB HS Menthol (Topical Analgesic) (Biofreeze) Unknown Strength Gel 1 APPLN TOP UD PRN for Pain APPLY PER PACKAGE DIRECTIONS Mirabegron (Myrbetriq Er) 50 Mg Tab 1 TAB PO DAILY Multivitamin (Multivitamin) Tab 1 TAB PO DAILY, TAB Mupirocin Calcium (Topical) (Mupirocin) 2 % Cre 1 APPLN TOP BID Omeprazole (Prilosec) 20 Mg Cap 20 MG PO QAM, CAP Polyethylene Glycol 3350 (Miralax) 1 Pow Pow 17 GM PO DAILY PRN for Constipation Polyethylene Glycol-Propylene (Systane Ultra) 1 Leslie Leslie 1 DROP OP Q4-6 HRS, ML Potassium Chloride Microencaps (Potassium Chloride Er) 20 Meq Tab 20 MEQ PO BID Probiotic Product (Align) 4 Mg Cap 1 CAP PO DAILY Saline ([place] Nasal [place]) 0.65 % Spr 1 SPRAY OSVALDO UD Discontinued Medications: Donepezil Hydrochloride (Donepezil Hcl) 5 Mg Tab 1 TAB PO HS, TAB Levothyroxine Sodium (Levothyroxine Sodium) 125 Mcg Tab 125 MCG PO DAILY Lorazepam (Lorazepam) 0.5 Mg Tab 0.5 TAB PO QPM Discharge Exam Unable to determine due to dementia, lethargy Physical Exam: General Appearance: WD/WN, no apparent distress Eyes: normal inspection, PERRL, EOMI, sclerae normal Neck: supple, no adenopathy, thyroid normal, no JVD Respiratory/Chest: chest non-tender, lungs clear, normal breath sounds, no respiratory distress Cardiovascular: no edema, no gallop, no JVD, no murmur Abdomen / GI: non tender, soft, no organomegaly, no pulsatile mass Extremities: normal inspection, no calf tenderness, normal capillary refill , no pedal edema Neurologic/Psychiatric: no motor/sensory deficits, + depressed affect, + disoriented Skin: normal color, warm/dry, no rash Lymphatic: no adenopathy Hospital Course This is an 81-year-old female with a UTI and 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 UTI --urine cx neg at this time, pt currently asymptomatic, will dc antibx, finished 4 day course of cipro during inpt stay --Pt has advance dementia but not delirium Dementia -- Management and treatment as per Neurology -- Neurology consult, MRI neg for stroke but limited, EEG no seizure activity noted -- Not a good candidate for aricept due to agitation, discontinued Depression -- Talk about SSRI is reluctant to start this -- will benefit from Neuro psychiatric evaluation as outpatient -- PCP can arrange the consult out patient DI -- Serum Na is WNL -- Continue desmopressin for now -- Follow with Endo as outpatient. Osteoporosis -- Continue home medications for now. Hypothyroidism, T4 1.78, TSH <0.005 --Reduce synthroid medication at this time to 100 mcg daily, will need repeat level in 6-8 weeks Total Time Spent: Greater than 30 minutes This includes examination of the patient, discharge planning, medication reconciliation, and communication with other providers. Discharge Instructions Please refer to the electronic Patient Visit Report (Discharge Instructions) for additional information. Additional Copies To Dank Carrillo M.D.
== END 2017-03-05 14:22 | disposition home health service (06) | DRG 948 ==
LOC: EDBD 07:05 → C.EDA 07:09 → CANRESERV 12:14 → ENRESERV 12:14 → C.MED 13:02 → OBSVTOIN 03-04 08:56
PROVIDERS: ADMIT Internal Medicine Sports Medicine; ATTEND Hospitalist
DX: R41.82 Altered mental status, unspecified (principal); N39.0 Urinary tract infection, site not specified; Z87.891 Personal history of nicotine dependence; F03.90 Unspecified dementia, unspecified severity, without behavioral disturbance, psychotic disturbance, mood disturbance, and anxiety; F32.9 Major depressive disorder, single episode, unspecified; M81.0 Age-related osteoporosis without current pathological fracture; E03.9 Hypothyroidism, unspecified; Z80.3 Family history of malignant neoplasm of breast; Z80.8 Family history of malignant neoplasm of other organs or systems; Z82.49 Family history of ischemic heart disease and other diseases of the circulatory system; Z80.52 Family history of malignant neoplasm of bladder

== ENCOUNTER → 2017-03-08 | Outpatient (CLI) | payer OTHER, BC ==
[~2017-03-08] MED LIST changes: -DONE1TAB11 PO; +FLUO0.0566 TOP; -GLIM1TAB2 PO; -LEVO125T5 PO; -METH-1305 PO; +MUPI1CRE TOP; +SYN100 PO
== END | disposition home or self-care (01) ==
LOC: C.LABPVFM 17:56
PROVIDERS: ATTEND Family Medicine
DX: N39.0 Urinary tract infection, site not specified (principal)

== ENCOUNTER → 2017-03-27 | Outpatient (CLI) | payer OTHER, BC ==
[2017-03-27 13:07] LABS: BLOOD UREA NITROGEN 23 mg/dl (7-18); BUN/CREATININE RATIO 20.4 (10-20); CALCIUM 9.4 mg/dl (8.5-10.1); CARBON DIOXIDE 28 mmol/L (21-32); CHLORIDE 103 mmol/L (98-107); CREATININE 1.11 mg/dl (0.60-1.20); GLUCOSE 124 mg/dl (70-99); POTASSIUM 3.7 mmol/L (3.5-5.1); SODIUM 138 mmol/L (136-145)
[2017-03-27 13:43] LABS: ESTIMATED AVERAGE GLUCOSE 151 mg/dl; HA1C FLAG Normal (Normal)
== END | disposition home or self-care (01) ==
LOC: C.LABPVFM 09:54
PROVIDERS: ATTEND Family Medicine
DX: M81.0 Age-related osteoporosis without current pathological fracture (principal); E11.9 Type 2 diabetes mellitus without complications; E03.9 Hypothyroidism, unspecified; F32.9 Major depressive disorder, single episode, unspecified; E87.6 Hypokalemia; E87.1 Hypo-osmolality and hyponatremia; S12.000A Unspecified displaced fracture of first cervical vertebra, initial encounter for closed fracture; X58.XXXA Exposure to other specified factors, initial encounter

== ENCOUNTER 2017-05-18 07:05 | Inpatient (IN) | payer OTHER, BC ==
[~2017-05-18] VITALS: Ht 165.1 cm; Wt 80.1 kg
--- NOTE | 2017-05-18 07:43 | DIAGNOSTIC IMAGING REPORT ---
CHEST ONE VIEW PORTABLE CLINICAL HISTORY: Altered mental status. Weakness. COMPARISON STUDY: Chest radiograph March 02, 2017. FINDINGS: Lung volumes are normal. No pneumothorax or pleural effusion is noted. There is no evidence for pulmonary edema. Cardiomediastinal silhouette is normal. Mild left basilar opacity favors atelectasis. IMPRESSION: No acute cardiopulmonary findings. Electronically signed by: Jhoan Mena M.D. 05/18/2017 7:41 AM Dictated Date/Time: 05/18/2017 7:41 AM
[2017-05-18 08:35] LABS: BASO % 0.3 %; BASO ABS # 0.04 K/uL (0-0.2); EOS % 1.1 %; EOS ABS # 0.15 K/uL (0-0.5); HEMOGLOBIN 15.2 g/dL (12.0-16.0); IG# 0.29 K/uL (0.00-0.02); LYMPH % 10.4 %; LYMPH ABS # 1.36 K/uL (1.2-3.4); MEAN CELL VOLUME 92.1 fL (80-100); MEAN CORPUSCULAR HEMOGLOBIN 31.8 pg (25-34); MEAN CORPUSCULAR HGB CONC 34.5 g/dl (32-36); MEAN PLATELET VOLUME 10.8 fL (7.4-10.4); MONO % 10.7 %; MONO ABS # 1.39 K/uL (0.11-0.59); NEUT % 75.3 %; NEUT ABS # 9.82 K/uL (1.4-6.5); NUCLEATED RED BLOOD CELL ABS 0.04 K/uL (0-0); PLATELET COUNT 207 K/uL (130-400); RED CELL DISTRIBUTION WIDTH SD 53.4 fL (36.4-46.3); WHITE BLOOD COUNT 13.05 K/uL (4.8-10.8)
[2017-05-18 08:54] LABS: PTT PATIENT 21.6 SECONDS (21.0-31.0)
[2017-05-18 08:55] LABS: ALBUMIN 3.1 gm/dl (3.4-5.0); ALT/SGPT 123 U/L (12-78); BLOOD UREA NITROGEN 18 mg/dl (7-18); CALCIUM 9.5 mg/dl (8.5-10.1); CARBON DIOXIDE 25 mmol/L (21-32); CREATININE 1.16 mg/dl (0.60-1.20); GLUCOSE 99 mg/dl (70-99); LIPASE 114 U/L (73-393); POTASSIUM 3.6 mmol/L (3.5-5.1); SODIUM 135 mmol/L (136-145)
[2017-05-18] MEDS ORDERED: LEVO125T5 PO (09:00)
[2017-05-18] MEDS ORDERED: MISC4CAP PO (09:00)
[2017-05-18] MEDS ORDERED: ZLF/50 PO (09:00)
[2017-05-18] MEDS ORDERED: LORA-741 PO (09:00)
[2017-05-18] MEDS ORDERED: COMPOUNDED MED TOP (09:00)
[2017-05-18 09:06] LABS: ALKALINE PHOSPHATASE 132 U/L (45-117); AST/SGOT 91 U/L (15-37); CKMB < 0.5 ng/ml (0.5-3.6); TOTAL PROTEIN 7.8 gm/dl (6.4-8.2)
--- NOTE | 2017-05-18 10:22 | EMERGENCY ROOM VISIT NOTE ---
History Report prepared by Eliezer: Cinthya Chery Under the Supervision of: Dr. Freddy Villanueva D.O. First contact with patient: 07:07 Stated Complaint: SYNCOPE History of Present Illness The patient is a 82 year old female who presents to the Emergency Room with complaints of a resolved syncopal episode that occurred earlier today. The patients son states that he found his mother unresponsive for about 5 minutes while she was going taking her bowel movements. He states that when the patient woke up, she was gagging and dry heaving. The patient reports she feels tired, but has no other current complains. Her states that the patient has experienced similar syncopal episodes in the past, noting they were told it was due to hypotension. Source of History: patient, family (son and ) Onset: today Position: other (global) Quality: other (syncope episode) Timing: resolved Review of Systems As above otherwise negative for 10 systems 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 (18) Sepsis (19) Ureterolithiasis (20) UTI (urinary tract infection) Family History Bladder cancer MOTHER Breast cancer SISTER FH: kidney disease FHx: heart disease Skin cancer MOTHER Social History Smoking Status: Never Smoker Alcohol Use: none Drug Use: none Marital Status: Housing Status: lives with family Occupation Status: retired Current/Historical Medications Scheduled Alendronate Sodium (Alendronate Sodium), 70 MG PO WK Calcitriol (Calcitriol), 0.25 MCG PO DAILY Calcium Carbonate-Cholecalcife (Caltrate 600+D), 1 TAB PO DAILY Chlorthalidone (Hygroton), 12.5 MG PO DAILY Cholecalciferol (Vitamin D-3), 1,000 INTER.UNIT PO DAILY Desmopressin Acetate (Desmopressin Acetate), 0.05 MG PO DAILY Docusate Sodium (Docusate Sodium), 100 MG PO DAILY Fluocinonide (Fluocinonide), 1 APPLN TOP BID Hydrocortisone (Cortef), 15 MG PO QAM Hydrocortisone (Cortef), 5 MG PO 1600 Lactic Acid (Ammonium Lactate) (Ammonium Lactate), 1 APPLN TOP UD Latanoprost (Latanoprost), 1 DROP OPB HS Levothyroxine Sodium (Levothyroxine Sodium), 125 MCG PO QAM Mirabegron (Myrbetriq Er), 50 MG PO DAILY Multivitamin (Multivitamin), 1 TAB PO DAILY Mupirocin Calcium (Topical) (Mupirocin), 1 APPLN TOP BID Omeprazole (Prilosec), 20 MG PO QAM Polyethylene Glycol-Propylene (Systane Ultra), 1 DROP OP Q4-6 HRS Potassium Chloride Microencaps (Potassium Chloride Er), 20 MEQ PO BID Probiotic Product (Align), 4 MG PO QAM Saline ([place] Nasal [place]), 1 SPRAY OSVALDO UD Sertraline HCl (Sertraline HCl), 25 MG PO DAILY [Compounded Med], 1 APPLN TOP BID Scheduled PRN Acetaminophen (Tylenol), 650 MG PO Q6H PRN for Pain Lorazepam (Ativan), 0.25-0.5 MG PO UD PRN for Anxiety Menthol (Topical Analgesic) (Biofreeze), 1 APPLN TOP UD PRN for Pain Allergies Coded Allergies: Amoxicillin (Verified Allergy, Intermediate, Swelling of Lips, 05/18/17) Ciprofloxacin (Verified Allergy, Intermediate, RASH, NAUSEA, 05/18/17) has tolerated levaquin without any notable problem (see September 2016 admission) Sulfa Antibiotics (Verified Allergy, Intermediate, RASH, 05/18/17) Biotin (Verified Allergy, Unknown, UNKN, 05/18/17) Cefepime (Verified Adverse Reaction, Severe, HALLUCINATIONS, 05/18/17) Diphenhydramine (Verified Adverse Reaction, Severe, HYPER INSOMNIA, ) Mirtazapine (Verified Adverse Reaction, Intermediate, altered mental status changes, 05/18/17) Nitrofurantoin (Verified Adverse Reaction, Intermediate, CHEST PAIN, CONFUSION, 05/18/17) Oxycodone (Verified Adverse Reaction, Mild, N/V, 05/18/17) Physical Exam Vital Signs Date Time Temp Pulse Resp B/P (MAP) Pulse Ox O2 Delivery O2 Flow Rate FiO2 05/18/17 11:57 112 98/59 92 Room Air 05/18/17 11:04 107 05/18/17 10:19 38.3 124 05/18/17 09:03 102 20 143/79 95 Room Air 05/18/17 07:16 99 05/18/17 07:13 37.7 104 18 147/85 94 Room Air Physical Exam VITAL SIGNS: were reviewed as above. GENERAL:Non-toxic in appearance. SKIN: Warm dry and pink. HEAD: Normocephalic and atraumatic. OROPHARYNX: Is clear and moist NECK: Supple without lymphadenopathy or meningismus. LUNGS: clear. HEART: Regular rate and rhythm. ABDOMEN: Soft and nontender. EXTREMITIES: Warm and well perfused. NEUROLOGICALLY: Awake alert and oriented without focal deficit. Cranial nerves 2 -12 are intact. There is no pronator drift. Cerebellar testing is within normal limits. There is no nystagmus. There is no facial droop. Speech is clear. Vision is grossly normal. MUSCULOSKELETAL: Good muscle tone. No evidence of trauma. Medical Decision & Procedures ER Provider Diagnostic Interpretation: Radiology results as stated below per my review and radiologist interpretation: CHEST ONE VIEW PORTABLE CLINICAL HISTORY: Altered mental status. Weakness. COMPARISON STUDY: Chest radiograph March 02, 2017. FINDINGS: Lung volumes are normal. No pneumothorax or pleural effusion is noted. There is no evidence for pulmonary edema. Cardiomediastinal silhouette is normal. Mild left basilar opacity favors atelectasis. IMPRESSION: No acute cardiopulmonary findings. Electronically signed by: Jhoan Mena M.D. 05/18/2017 7:41 AM Dictated Date/Time: 05/18/2017 7:41 AM Laboratory Results 05/18/17 07:55 Red Blood Count 4.78, Mean Corpuscular Volume 92.1, Mean Corpuscular Hemoglobin 31.8, Mean Corpuscular Hemoglobin Concent 34.5, Mean Platelet Volume 10.8, Neutrophils (%) (Auto) 75.3, Lymphocytes (%) (Auto) 10.4, Monocytes (%) (Auto) 10.7, Eosinophils (%) (Auto) 1.1, Basophils (%) (Auto) 0.3, Neutrophils # (Auto ) 9.82, Lymphocytes # (Auto) 1.36, Monocytes # (Auto) 1.39, Eosinophils # (Auto ) 0.15, Basophils # (Auto) 0.04 05/18/17 07:55 Test 05/18/17 07:55 05/18/17 10:25 White Blood Count 13.05 K/uL (4.8-10.8) Red Blood Count 4.78 M/uL (4.2-5.4) Hemoglobin 15.2 g/dL (12.0-16.0) Hematocrit 44.0 % (37-47) Mean Corpuscular Volume 92.1 fL (80-100) Mean Corpuscular Hemoglobin 31.8 pg (25-34) Mean Corpuscular Hemoglobin Concent 34.5 g/dl (32-36) Platelet Count 207 K/uL (130-400) Mean Platelet Volume 10.8 fL (7.4-10.4) Neutrophils (%) (Auto) 75.3 % Lymphocytes (%) (Auto) 10.4 % Monocytes (%) (Auto) 10.7 % Eosinophils (%) (Auto) 1.1 % Basophils (%) (Auto) 0.3 % Neutrophils # (Auto) 9.82 K/uL (1.4-6.5) Lymphocytes # (Auto) 1.36 K/uL (1.2-3.4) Monocytes # (Auto) 1.39 K/uL (0.11-0.59) Eosinophils # (Auto) 0.15 K/uL (0-0.5) Basophils # (Auto) 0.04 K/uL (0-0.2) RDW Standard Deviation 53.4 fL (36.4-46.3) RDW Coefficient of Variation 16.0 % (11.5-14.5) Immature Granulocyte % (Auto) 2.2 % Immature Granulocyte # (Auto) 0.29 K/uL (0.00-0.02) Nucleated RBC Absolute Count (auto) 0.04 K/uL (0-0) Nucleated Red Blood Cells % 0.3 % Prothrombin Time 10.1 SECONDS (9.0-12.0) Prothromb Time International Ratio 1.0 (0.9-1.1) Activated Partial Thromboplast Time 21.6 SECONDS (21.0-31.0) Partial Thromboplastin Ratio 0.8 Anion Gap 10.0 mmol/L (3-11) Estimated GFR () 51.1 Estimated GFR (Non- 44.1 BUN/Creatinine Ratio 15.8 (10-20) Calcium Level 9.5 mg/dl (8.5-10.1) Total Bilirubin 0.7 mg/dl (0.2-1) Direct Bilirubin 0.2 mg/dl (0-0.2) Aspartate Amino Transf (AST/SGOT) 91 U/L (15-37) Alanine Aminotransferase (ALT/SGPT) 123 U/L (12-78) Alkaline Phosphatase 132 U/L (45-117) Total Creatine Kinase 41 U/L (26-192) Creatine Kinase MB < 0.5 ng/ml (0.5-3.6) Creatine Kinase MB Ratio (0-3.0) Troponin I < 0.015 ng/ml (0-0.045) Total Protein 7.8 gm/dl (6.4-8.2) Albumin 3.1 gm/dl (3.4-5.0) Lipase 114 U/L (73-393) Thyroid Stimulating Hormone (TSH) < 0.005 uIu/ml (0.300-4.500) Urine Color YELLOW Urine Appearance CLEAR (CLEAR) Urine pH 7.5 (4.5-7.5) Urine Specific [place] 1.008 (1.000-1.030) Urine Protein NEG (NEG) Urine Glucose (UA) NEG (NEG) Urine Ketones NEG (NEG) Urine Occult Blood NEG (NEG) Urine Nitrite NEG (NEG) Urine Bilirubin NEG (NEG) Urine Urobilinogen NEG (NEG) Urine Leukocyte Esterase NEG (NEG) Urine WBC (Auto) 1-5 /hpf (0-5) Urine RBC (Auto) 0-4 /hpf (0-4) Urine Hyaline Casts (Auto) 0 /lpf (0-5) Urine Epithelial Cells (Auto) 0-5 /lpf (0-5) Urine Bacteria (Auto) NEG (NEG) Influenza Type A (RT-PCR) POS for Influ A (NEG) Influenza Type B (RT-PCR) Neg for Influ B (NEG) Laboratory results as stated above per my review. Medications Administered Medications (Trade) Dose Ordered Sig/Natalee Route Start Time Stop Time Status Last Admin Dose Admin Sodium Chloride 500 ml @ 999 mls/hr Q31M STAT IV 05/18/17 10:24 05/18/17 10:54 DC 05/18/17 10:24 999 MLS/HR Acetaminophen (Tylenol Tab) 1,000 mg NOW STAT PO 05/18/17 10:24 05/18/17 10:27 DC 05/18/17 10:24 1,000 MG ECG Indication: syncope Rate (beats per minute): 101 Rhythm: sinus rhythm Findings: no acute ischemic change, no ectopy Change: Electrocardiogram as interested by me ED Course 0707: Previous medical records were reviewed. The patient was evaluated in room B2. A complete history and physical examination was performed. 0832: I reevaluated the patient and discussed some test findings. 1023: I reevaluated the patient, who was resting comfortably. The patient currently has a fever. 1024: Ordered Tylenol Tab 1000mg PO and Sodium Chloride 500ml @ 999 mls/hr IV. 1120: I reevaluated the patient, who was resting comfortably. 1203: Discussed the patient's case with Dr. Tiny Ferguson [facility] [place] The patient will be evaluated for further treatment and disposition. Medical Decision The patient is a 82 year old female who presents to the ED with complaints of a resolved syncopal episode. Differential diagnosis: Etiologies such as metabolic, infection, hypo/ hyperglycemia, electrolyte abnormalities, cardiac sources, intracerebral event, toxicologic, neurologic, as well as others were entertained. This is a 82-year-old female who presents to the ED with a chief complaint of an unresponsive episode. The patient, according to the , went to the bathroom. While she was on the commode having a bowel movement, she passed out for about 5 minutes. She also seemed to have a little gagging around that time. He does report that the patient has had similar episodes in the past and his been told that it was related to low blood pressure. The patient awoke and by the time EMS came, she was at her baseline. On her arrival here, she has no specific complaints. Her physical exam and neurologic exam were unremarkable. Her vital signs are normal. Prehospital vital signs are normal as well. Negative stroke scale. Twelve-lead EKG shows a sinus rhythm. Chest x-ray did not show acute process. CBC showed a mild elevation of the white blood cell count 13. PRP was normal. There was a mild transaminitis. Patient has history of cholecystectomy. Troponin was negative. The patient was told results the test. I suspect she had a vasovagal syncope related to defecation and micturition. During the patient's evaluation, she did have a fever and his subsequent positive influenza a screening. She was treated with IV fluids, Tylenol by mouth and Tamiflu by mouth. Nurses attempted to get her up to the bathroom but required significant assistance. Because the patient's syncope, weakness and influenza, the patient was seen by the hospitalist for further inpatient evaluation and care. Medication Reconcilliation Current Medication List: was personally reviewed by me Consults Time Called: 1203 Consulting Physician: Dr. Tiny Ferguson Returned Call: 1203 Discussed the patient's case. The patient will be evaluated for further treatment and disposition. Impression Primary Impression: Vasovagal syncope Scribe Attestation The scribe's documentation has been prepared under my direction and personally reviewed by me in its entirety. I confirm that the note above accurately reflects all work, treatment, procedures, and medical decision making performed by me. Departure Information Dispostion Being Evaluated By Hospitalist Referrals Dank Carrillo M.D. (PCP) Forms HOME CARE DOCUMENTATION FORM, IMPORTANT VISIT INFORMATION Patient Instructions ED Syncope Vasovagal, My [facility] Additional Instructions Follow-up with your doctor for further care and evaluation in 2-3 days. Return to the emergency department for worsening or new symptoms or any concerns. You have been examined and treated today on an emergency basis only. This is not a substitute for, or an effort to provide, complete comprehensive medical care. It is impossible to recognize and treat all injuries or illnesses in a single emergency department visit. It is therefore important that you follow up closely with your doctor. Call as soon as possible for an appointment.
[2017-05-18] MEDS ORDERED: SODIUM CHLORIDE 0.9% 500ML 500 ML IV STA (10:24)
[2017-05-18] MEDS ORDERED: ACETAMINOPHEN 500 MG TAB PO STA (10:24)
[2017-05-18 11:29] LABS: INFLUENZA B PCR Neg for Influ B (NEG)
[2017-05-18 11:31] LABS: INFLUENZA A PCR POS for Influ A (NEG)
[2017-05-18] MEDS ORDERED: OSELTAMIVIR PHOSPHATE 75 MG CAP PO STA (12:16)
[2017-05-18] MEDS ORDERED: MAGNESIUM HYDROXIDE SUSP 30 ML UDC PO PRN (13:00)
[2017-05-18] MEDS ORDERED: SODIUM CHLORIDE 0.65% NA SOLN 45 ML (OCEAN) NAE PRN (13:00)
[2017-05-18] MEDS ORDERED: ONDANSETRON INJ 2 MG/ML 2 ML VIAL IV PRN (13:00)
[2017-05-18] MEDS ORDERED: ACETAMINOPHEN 325 MG TAB PO PRN ×2 (13:00)
[2017-05-18] MEDS ORDERED: LORAZEPAM 0.5 MG TAB PO PRN (13:00)
--- NOTE | 2017-05-18 13:16 | History and Physical ---
History & Physical Date & Time of Service: May 18, 2017 at 13:00 Chief Complaint: Syncope Primary Care Physician: Dank Carrillo M.D. History of Present Illness Source: patient, caregiver 82 y/o F who was brought to the ED by her and caregiver for syncopal episode. is not present but caregiver who is familiar with pt is present and states that this happens at times with pt from toilet. She also states this happens when K is low. She states that pt has been eating without issue, including yesterday--no n/v. She cannot tell me if pt is eating a good amount of food. She states that they try to push water as well. Pt has had a cough for about a week. She has gotten progressively weaker since this time and needed help today after the syncopal episode. Pt denies fever, SOB, chest pain, abd pain, n/v/c/d, LE pain or swelling. She does not remember syncopal episode. She was noted to have a fever in the ED. I did speak with during a second visit to the room and he correlated with the above hx. He states that she is to be on synthroid 125mcg per endocrinology as it is felt that the way thyroid is checked in the hospital is not accurate. Past Medical/Surgical History Medical Problems: (1) Cholelithiasis Status: Chronic (2) Depression Status: Chronic (3) GERD (gastroesophageal reflux disease) Status: Chronic (4) Glaucoma Status: Chronic (5) Hypercholesteremia Status: Chronic (6) Right frontal lobe mass Status: Resolved Hypothyroid Abn LFTs Dementia HypoK GERD s/p cholecystectomy Family History Family history was reviewed; no changes noted. Social History Smoking Status: Never Smoker Alcohol Use: none Drug Use: none Marital Status: Housing status: lives with family Occupational Status: retired Immunizations History of Influenza Vaccine: No Influenza Vaccine Date: Feb 04, 2010 History of Tetanus Vaccine?: No History of Pneumococcal: YES- [place] 2008 History of Hepatitis B Vaccine: No Multi-Drug Resistant Organisms History of MDRO: No Allergies Coded Allergies: Amoxicillin (Verified Allergy, Intermediate, Swelling of Lips, 05/18/17) Ciprofloxacin (Verified Allergy, Intermediate, RASH, NAUSEA, 05/18/17) has tolerated levaquin without any notable problem (see September 2016 admission) Sulfa Antibiotics (Verified Allergy, Intermediate, RASH, 05/18/17) Biotin (Verified Allergy, Unknown, UNKN, 05/18/17) Cefepime (Verified Adverse Reaction, Severe, HALLUCINATIONS, 05/18/17) Diphenhydramine (Verified Adverse Reaction, Severe, HYPER INSOMNIA, ) Mirtazapine (Verified Adverse Reaction, Intermediate, altered mental status changes, 05/18/17) Nitrofurantoin (Verified Adverse Reaction, Intermediate, CHEST PAIN, CONFUSION, 05/18/17) Oxycodone (Verified Adverse Reaction, Mild, N/V, 05/18/17) Home Medications Scheduled Alendronate Sodium (Alendronate Sodium), 70 MG PO WK Calcitriol (Calcitriol), 0.25 MCG PO DAILY Calcium Carbonate-Cholecalcife (Caltrate 600+D), 1 TAB PO DAILY Chlorthalidone (Hygroton), 12.5 MG PO DAILY Cholecalciferol (Vitamin D-3), 1,000 INTER.UNIT PO DAILY Desmopressin Acetate (Desmopressin Acetate), 0.05 MG PO DAILY Docusate Sodium (Docusate Sodium), 100 MG PO DAILY Fluocinonide (Fluocinonide), 1 APPLN TOP BID Hydrocortisone (Cortef), 15 MG PO QAM Hydrocortisone (Cortef), 5 MG PO 1600 Lactic Acid (Ammonium Lactate) (Ammonium Lactate), 1 APPLN TOP UD Latanoprost (Latanoprost), 1 DROP OPB HS Levothyroxine Sodium (Levothyroxine Sodium), 125 MCG PO QAM Mirabegron (Myrbetriq Er), 50 MG PO DAILY Multivitamin (Multivitamin), 1 TAB PO DAILY Mupirocin Calcium (Topical) (Mupirocin), 1 APPLN TOP BID Omeprazole (Prilosec), 20 MG PO QAM Polyethylene Glycol-Propylene (Systane Ultra), 1 DROP OP Q4-6 HRS Potassium Chloride Microencaps (Potassium Chloride Er), 20 MEQ PO BID Probiotic Product (Align), 4 MG PO QAM Saline ([place] Nasal [place]), 1 SPRAY OSVALDO UD Sertraline HCl (Sertraline HCl), 25 MG PO DAILY [Compounded Med], 1 APPLN TOP BID Scheduled PRN Acetaminophen (Tylenol), 650 MG PO Q6H PRN for Pain Lorazepam (Ativan), 0.25-0.5 MG PO UD PRN for Anxiety Menthol (Topical Analgesic) (Biofreeze), 1 APPLN TOP UD PRN for Pain Review of Systems Pertinent positives and negatives reviewed in HPI--all others negative Physical Exam Vital Signs Date Time Temp Pulse Resp B/P (MAP) Pulse Ox O2 Delivery O2 Flow Rate FiO2 05/18/17 12:33 96 Nasal Cannula 2.0 05/18/17 11:57 112 98/59 92 Room Air 05/18/17 11:04 107 05/18/17 10:19 38.3 124 05/18/17 09:03 102 20 143/79 95 Room Air 05/18/17 07:16 99 05/18/17 07:13 37.7 104 18 147/85 94 Room Air General Appearance: WD/WN, no apparent distress Head: normocephalic, atraumatic Eyes: normal inspection, sclerae normal Respiratory/Chest: normal breath sounds, no respiratory distress Cardiovascular: regular rate, rhythm, no edema Abdomen/GI: non tender, soft Extremities/Musculoskelatal: no calf tenderness, no pedal edema Neurologic/Psych: alert (to person, answers yes/no questions, follows basic commands) Skin: normal color, warm/dry Diagnostics Laboratory Results Results Past 24 Hours Test 05/18/17 07:55 05/18/17 10:25 Range/Units White Blood Count 13.05 4.8-10.8 K/uL Red Blood Count 4.78 4.2-5.4 M/uL Hemoglobin 15.2 12.0-16.0 g/dL Hematocrit 44.0 37-47 % Mean Corpuscular Volume 92.1 80-100 fL Mean Corpuscular Hemoglobin 31.8 25-34 pg Mean Corpuscular Hemoglobin Concent 34.5 32-36 g/dl Platelet Count 207 130-400 K/uL Mean Platelet Volume 10.8 7.4-10.4 fL Neutrophils (%) (Auto) 75.3 % Lymphocytes (%) (Auto) 10.4 % Monocytes (%) (Auto) 10.7 % Eosinophils (%) (Auto) 1.1 % Basophils (%) (Auto) 0.3 % Neutrophils # (Auto) 9.82 1.4-6.5 K/uL Lymphocytes # (Auto) 1.36 1.2-3.4 K/uL Monocytes # (Auto) 1.39 0.11-0.59 K/uL Eosinophils # (Auto) 0.15 0-0.5 K/uL Basophils # (Auto) 0.04 0-0.2 K/uL RDW Standard Deviation 53.4 36.4-46.3 fL RDW Coefficient of Variation 16.0 11.5-14.5 % Immature Granulocyte % (Auto) 2.2 % Immature Granulocyte # (Auto) 0.29 0.00-0.02 K/uL Nucleated RBC Absolute Count (auto) 0.04 0-0 K/uL Nucleated Red Blood Cells % 0.3 % Prothrombin Time 10.1 9.0-12.0 SECONDS Prothromb Time International Ratio 1.0 0.9-1.1 Activated Partial Thromboplast Time 21.6 21.0-31.0 SECONDS Partial Thromboplastin Ratio 0.8 Sodium Level 135 136-145 mmol/L Potassium Level 3.6 3.5-5.1 mmol/L Chloride Level 100 98-107 mmol/L Carbon Dioxide Level 25 21-32 mmol/L Anion Gap 10.0 3-11 mmol/L Blood Urea Nitrogen 18 7-18 mg/dl Creatinine 1.16 0.60-1.20 mg/dl Estimated GFR () 51.1 Estimated GFR (Non- 44.1 BUN/Creatinine Ratio 15.8 10-20 Random Glucose 99 70-99 mg/dl Calcium Level 9.5 8.5-10.1 mg/dl Total Bilirubin 0.7 0.2-1 mg/dl Direct Bilirubin 0.2 0-0.2 mg/dl Aspartate Amino Transf (AST/SGOT) 91 15-37 U/L Alanine Aminotransferase (ALT/SGPT) 123 12-78 U/L Alkaline Phosphatase 132 45-117 U/L Total Creatine Kinase 41 26-192 U/L Creatine Kinase MB < 0.5 0.5-3.6 ng/ml Creatine Kinase MB Ratio 0-3.0 Troponin I < 0.015 0-0.045 ng/ml Total Protein 7.8 6.4-8.2 gm/dl Albumin 3.1 3.4-5.0 gm/dl Lipase 114 73-393 U/L Thyroid Stimulating Hormone (TSH) < 0.005 0.300-4.500 uIu/ml Urine Color YELLOW Urine Appearance CLEAR CLEAR Urine pH 7.5 4.5-7.5 Urine Specific [place] 1.008 1.000-1.030 Urine Protein NEG NEG Urine Glucose (UA) NEG NEG Urine Ketones NEG NEG Urine Occult Blood NEG NEG Urine Nitrite NEG NEG Urine Bilirubin NEG NEG Urine Urobilinogen NEG NEG Urine Leukocyte Esterase NEG NEG Urine WBC (Auto) 1-5 0-5 /hpf Urine RBC (Auto) 0-4 0-4 /hpf Urine Hyaline Casts (Auto) 0 0-5 /lpf Urine Epithelial Cells (Auto) 0-5 0-5 /lpf Urine Bacteria (Auto) NEG NEG Influenza Type A (RT-PCR) POS for Influ A NEG Influenza Type B (RT-PCR) Neg for Influ B NEG Diagnostic Radiology CXR neg for acute Impression Assessment and Plan 82 y/o F who was admitted on 05/18 for syncope in the setting of flu Syncope: hx of same and generally either vasovagal or related to hypoK K is low normal Likely vasovagal in the setting of flu + Flu A: outside of the window for tamiflu given sx x1 week Monitor with IVF Leukocytosis: in the setting of chronic steroid use Will not add stress dose steroids at this time HypoK: low normal, addition of K to IVF DM: stable, no home medications for this A1c 6.9 03/2017 Abn LFTs: stable Hypothyroid: pt was d/c'd 02/2017 with a decreased dose of synthroid due to fully depressed TSH. It was rechecked in March and still depressed and is again depressed today Pt is on 125mcg per husbands list. He states that Dr. Fung prefers this dose "because thyroid tests in the hospital are not reliable" Other: Full code, "all reasonable efforts" per Reg diet with IVF Heparin for DVT proph Level of Care Telemetry Resuscitation Status FULL RESUSCITATION VTE Prophylaxis VTE Risk Assessment Done? Y/N: Yes Risk Level: Low
[2017-05-18 14:07] VITALS: BP 88/46; PULSE 99; TEMP 37.4; O2SAT 96; BMI 29.7
[2017-05-18] MEDS: NSS + 20MEQ KCL 1000ML 1,000 ML IV SCH (15:17)
[2017-05-18 16:03] VITALS: BP 115/73; PULSE 98; TEMP 37; O2SAT 98
[2017-05-18] MEDS: HYDROCORTISONE 10 MG TAB PO SCH (16:55)
[2017-05-18 20:10] VITALS: BP 97/62; PULSE 110; TEMP 37.6; O2SAT 92
[2017-05-18 20:27] VITALS: BP 98/74; PULSE 107; TEMP 37.1; O2SAT 96
[2017-05-18] MEDS: LATANOPROST 0.005% OP SOLN 2.5 ML BTL OPB SCH (22:24)
[2017-05-18] MEDS: POTASSIUM CHLORIDE 20 MEQ TABCR PO SCH (22:26)
[2017-05-18] MEDS: MUPIROCIN 2% OINT 22 GM TUBE TOP SCH (22:26)
[2017-05-18] MEDS: DESMOPRESSIN ACETATE 0.1 MG TAB PO SCH (22:26)
[2017-05-18] MEDS: HEPARIN SOD 5000 UNIT/0.5 ML CARP SQ SCH (22:27)
[2017-05-18 23:30] VITALS: BP 114/61; PULSE 111; TEMP 37.2; O2SAT 90
[2017-05-19] VITALS (8 sets, daily range): BP systolic 106–156; BP diastolic 57–90; PULSE 76–103; TEMP 36.5–37.7; O2SAT 93–99
[2017-05-19] MEDS: NSS + 20MEQ KCL 1000ML 1,000 ML IV SCH (03:31)
[2017-05-19 05:53] LABS: HEMATOCRIT 38.2 % (37-47); HEMOGLOBIN 12.9 g/dL (12.0-16.0); MEAN CELL VOLUME 91.2 fL (80-100); MEAN CORPUSCULAR HEMOGLOBIN 30.8 pg (25-34); MEAN CORPUSCULAR HGB CONC 33.8 g/dl (32-36); MEAN PLATELET VOLUME 10.5 fL (7.4-10.4); NUCLEATED RED BLOOD CELL ABS 0.02 K/uL (0-0); PLATELET COUNT 174 K/uL (130-400); RED CELL DISTRIBUTION WIDTH CV 16.3 % (11.5-14.5); WHITE BLOOD COUNT 7.71 K/uL (4.8-10.8)
[2017-05-19] MEDS: LEVOTHYROXINE 125 MCG TAB PO SCH (06:03)
[2017-05-19] MEDS: HEPARIN SOD 5000 UNIT/0.5 ML CARP SQ SCH ×3 (06:05→23:06)
[2017-05-19 06:43] LABS: CREATININE 1.15 mg/dl (0.60-1.20); POTASSIUM 3.2 mmol/L (3.5-5.1)
[2017-05-19 06:47] LABS: CALCIUM 8.1 mg/dl (8.5-10.1)
[2017-05-19] MEDS: AMMONIUM LACTATE 12% LOTION 225 GM BTL EXT SCH (09:00)
[2017-05-19] MEDS ORDERED: CHLORTHALIDONE 25 MG TAB PO SCH (09:00)
[2017-05-19] MEDS: MUPIROCIN 2% OINT 22 GM TUBE TOP SCH ×2 (09:00→19:50)
[2017-05-19] MEDS ORDERED: DESMOPRESSIN ACETATE 0.1 MG TAB PO SCH (09:00)
[2017-05-19] MEDS: POTASSIUM CHLORIDE 20 MEQ TABCR PO SCH ×2 (09:00→19:47)
[2017-05-19] MEDS: LACTOBACILLUS ACIDOPHILUS (FLORANEX) TAB PO SCH (09:30)
[2017-05-19] MEDS: SERTRALINE HCL 50 MG TAB PO SCH (09:31)
[2017-05-19] MEDS: MIRABEGRON ER 25 MG TAB PO SCH (09:31)
[2017-05-19] MEDS: CALCIUM 600MG + VIT D 400 IU TAB PO SCH (09:32)
[2017-05-19] MEDS: CALCITRIOL 0.25 MCG CAP PO SCH (09:32)
[2017-05-19] MEDS: MULTIVITAMIN TAB PO SCH (09:32)
[2017-05-19] MEDS: CHOLECALCIFEROL 1000 INTER.UNIT TAB PO SCH (09:32)
[2017-05-19] MEDS: PANTOprazole SOD 40 MG TAB PO SCH (09:33)
[2017-05-19] MEDS: HYDROCORTISONE 10 MG TAB PO SCH ×2 (09:34→15:57)
[2017-05-19] MEDS: DOCUSATE SODIUM 100 MG CAP PO SCH (09:36)
[2017-05-19] MEDS: PROPYLENE GLYCOL 0.6% (OPHTH) 15 DROP/ML 10ML BTL OP PRN (10:58)
[2017-05-19] MEDS: POTASSIUM CHLR 10 MEQ / WTR 10 MEQ in PREMIXED WATER 100 ML IV SCH ×2 (12:04→13:51)
[2017-05-19] MEDS: POTASSIUM CHLORIDE INJ 40 MEQ in SODIUM CHLORIDE 0.9% 1000ML 1,000 ML IV SCH (15:55)
[2017-05-19] MEDS: DESMOPRESSIN ACETATE 0.1 MG TAB PO SCH (19:48)
[2017-05-19] MEDS: LATANOPROST 0.005% OP SOLN 2.5 ML BTL OPB SCH (19:49)
--- NOTE | 2017-05-19 20:03 | Progress Note ---
Subjective Date of Service: May 19, 2017. Subjective Pt evaluation today including: conversation w/ patient, conversation w/ family , physical exam, lab review, review of inpatient medication list Pain: no pain PO Intake: poor, vomited this AM Voiding: pizarro catheter in place ordered pizarro to be placed this AM after patient has post void residual 400cc vomited after breakfast, not feeling well at the time of my exam admitted to being weak not many verbal responses aide at the bedside, reported that she had not been eating or drinking well, had diarrhea prior to admission labs reviewed, K is 3.2, Cr stable at 1.1 WBC now normal Problem List Medical Problems: (1) Acute kidney injury Status: Acute (2) VERO (acute kidney injury) Status: Acute (3) Altered mental status Status: Acute (4) Altered mental status Status: Acute (5) Altered mental status Status: Acute (6) Altered mental status Status: Acute (7) Altered mental status Status: Acute (8) Altered mental status Status: Acute (9) Ascending cholangitis Status: Acute (10) Atrial fibrillation Status: Acute (11) Dehydration Status: Acute (12) Dehydration Status: Acute (13) Dysarthria Status: Acute (14) Hearing voices Status: Acute (15) Hydronephrosis Status: Acute (16) Hydronephrosis Status: Acute (17) Hyponatremia Status: Acute (18) Kidney stone Status: Acute (19) Leukocytosis Status: Acute (20) Medication reaction Status: Acute (21) Nausea & vomiting Status: Acute (22) Pleural effusion Status: Acute (23) Right ureteral calculus Status: Acute (24) RUQ abdominal pain Status: Acute (25) Sepsis Status: Acute (26) Sepsis Status: Acute (27) Urinary tract infection Status: Acute (28) Vasovagal syncope Status: Acute Review of Systems Constitutional: + weakness, + fatigue Abdomen: + vomiting Neurologic: + weakness, + balance problems All Other Systems: Reviewed and Negative Medications Current Inpatient Medications Medications (Trade) Dose Ordered Sig/Natalee Route Start Time Stop Time Status Last Admin Dose Admin Heparin Sodium (Porcine) (Heparin Sq 5000 Unit/0.5ml) 5,000 unit Q8 SQ 05/18/17 22:00 06/17/17 21:59 05/19/17 13:53 5,000 UNIT Acetaminophen (Tylenol Tab) 650 mg Q4H PRN PO 05/18/17 13:00 06/17/17 12:59 05/19/17 12:04 650 MG Magnesium Hydroxide (Milk Of Magnesia Susp) 30 ml Q6H PRN PO 05/18/17 13:00 06/17/17 12:59 Ondansetron HCl (Zofran Inj) 4 mg Q6H PRN IV 05/18/17 13:00 06/17/17 12:59 05/19/17 10:58 4 MG Calcitriol (Rocaltrol Cap) 0.25 mcg DAILY PO 05/19/17 09:00 06/18/17 08:59 05/19/17 09:32 0.25 MCG Chlorthalidone (Hygroton Tab) 12.5 mg DAILY PO 05/19/17 09:00 06/18/17 08:59 Future Hold 05/19/17 09:33 12.5 MG Cholecalciferol (Vitamin D Tab) 1,000 inter.unit DAILY PO 05/19/17 09:00 06/18/17 08:59 05/19/17 09:32 1,000 INTER.UNIT Docusate Sodium (coLACE CAP) 100 mg DAILY PO 05/19/17 09:00 06/18/17 08:59 05/19/17 09:36 100 MG Hydrocortisone (Cortef Tab) 5 mg DAILY@1600 PO 05/18/17 16:00 06/17/17 15:59 05/19/17 15:57 5 MG Hydrocortisone (Cortef Tab) 15 mg QAM PO 05/19/17 09:00 06/18/17 08:59 05/19/17 09:34 15 MG Ammonium Lactate (Lac-Hydrin) 1 appl DAILY EXT 05/19/17 09:00 06/18/17 08:59 05/19/17 09:00 1 APPL Latanoprost (Xalatan Oph Soln) 1 drops HS OPB 05/18/17 21:00 06/17/17 20:59 05/19/17 19:49 1 DROPS Levothyroxine Sodium (Synthroid Tab) 125 mcg DAILYBB PO 05/19/17 06:00 06/18/17 05:59 05/19/17 06:03 125 MCG Lorazepam (Ativan Tab) 0.25 mg DAILY PRN PO 05/18/17 13:00 06/17/17 12:59 Mirabegron (Myrbetriq Er) 50 mg DAILY PO 05/19/17 09:00 06/18/17 08:59 05/19/17 09:31 50 MG Multivitamins (Multivitamin Tab) 1 tab DAILY PO 05/19/17 09:00 06/18/17 08:59 05/19/17 09:32 1 TAB Potassium Chloride (Klor-Con Tab) 20 meq BID PO 05/18/17 21:00 06/17/17 20:59 05/19/17 19:47 20 MEQ Sodium Chloride ([place] Nasal [place]) 1 sprays UD PRN OSVALDO 05/18/17 13:00 06/17/17 12:59 Sertraline HCl (Zoloft Tab) 25 mg DAILY PO 05/19/17 09:00 06/18/17 08:59 05/19/17 09:31 25 MG Calcium/Vitamin D (Caltrate Plus Tab) 1 tab DAILY PO 05/19/17 09:00 06/18/17 08:59 05/19/17 09:32 1 TAB Miscellaneous Information (Order Awaiting Action) 1 ea QS N/A 05/18/17 16:00 06/17/17 15:59 05/19/17 08:00 1 EA Miscellaneous Information (Order Awaiting Action) 1 ea QS N/A 05/18/17 16:00 06/17/17 15:59 05/19/17 08:00 1 EA Mupirocin (Bactroban 2% Oint) 1 appln BID TOP 05/18/17 21:00 06/17/17 20:59 05/19/17 19:50 1 APPLN Pantoprazole Sodium (Protonix Tab) 40 mg QAM PO 05/19/17 09:00 06/18/17 08:59 05/19/17 09:33 40 MG Lactobacillus Acidophilus (Floranex Tab) 1 tab QAM PO 05/19/17 09:00 06/18/17 08:59 05/19/17 09:30 1 TAB Miscellaneous Information (Order Awaiting Action) 1 ea QS N/A 05/18/17 16:00 06/17/17 15:59 05/19/17 08:00 1 EA Desmopressin Acetate (Desmopressin Acetate) 0.05 mg DAILY@2100 PO 05/18/17 21:00 06/17/17 20:59 05/19/17 19:48 0.05 MG Potassium Chloride 40 meq/ Sodium Chloride 1,020 ml @ 80 mls/hr [id number] IV 05/19/17 16:01 06/18/17 16:00 05/19/17 15:55 80 MLS/HR Objective Vital Signs Date Time Temp Pulse Resp B/P (MAP) Pulse Ox O2 Delivery O2 Flow Rate FiO2 05/19/17 15:59 37.0 91 20 119/64 (82) 94 Nasal Cannula 2.0 05/19/17 13:22 37.4 05/19/17 12:00 Room Air 05/19/17 11:47 37.7 99 23 131/72 (91) 94 05/19/17 07:50 37.5 101 24 156/90 (112) 93 05/19/17 07:30 Room Air 05/19/17 04:00 Room Air 05/19/17 03:45 37.6 103 20 106/64 (78) 96 Room Air 05/18/17 23:50 Room Air 05/18/17 23:30 37.2 111 20 114/61 (78) 90 Room Air 05/18/17 20:50 Nasal Cannula 2.0 05/18/17 20:27 37.1 107 20 98/74 (82) 96 Room Air 05/18/17 20:10 37.6 110 20 97/62 (74) 92 Room Air Physical Exam General Appearance: WD/WN, no apparent distress Eyes: normal inspection, EOMI, sclerae normal ENT: normal ENT inspection, hearing grossly normal, pharynx normal Neck: supple, no adenopathy, no JVD, trachea midline Respiratory/Chest: chest non-tender, lungs clear, no respiratory distress, no accessory muscle use, + decreased breath sounds (bases) Cardiovascular: regular rate, rhythm, no edema, no gallop, no JVD, no murmur Abdomen: normal bowel sounds, non tender, soft, no organomegaly Extremities: normal range of motion, non-tender, normal inspection, no pedal edema, no calf tenderness, pelvis stable Neurologic/Psychiatric: role player II-XII nml as tested, normal mood/affect, oriented x 3, + motor weakness (generalized), + depressed affect Skin: normal color, warm/dry, no rash Lymphatic: no adenopathy, + axilla node tender (R) Laboratory Results Last 24 Hours Test 05/18/17 19:42 05/19/17 05:18 05/19/17 06:54 05/19/17 11:32 Bedside Glucose 156 mg/dl 130 mg/dl 145 mg/dl White Blood Count 7.71 K/uL Red Blood Count 4.19 M/uL Hemoglobin 12.9 g/dL Hematocrit 38.2 % Mean Corpuscular Volume 91.2 fL Mean Corpuscular Hemoglobin 30.8 pg Mean Corpuscular Hemoglobin Concent 33.8 g/dl RDW Standard Deviation 54.0 fL RDW Coefficient of Variation 16.3 % Platelet Count 174 K/uL Mean Platelet Volume 10.5 fL Nucleated RBC Absolute Count (auto) 0.02 K/uL Nucleated Red Blood Cells % 0.3 % Sodium Level 136 mmol/L Potassium Level 3.2 mmol/L Chloride Level 105 mmol/L Carbon Dioxide Level 26 mmol/L Anion Gap 5.0 mmol/L Blood Urea Nitrogen 16 mg/dl Creatinine 1.15 mg/dl Est Creatinine Clear Calc Drug Dose 40.0 ml/min Estimated GFR () 51.7 Estimated GFR (Non- 44.6 BUN/Creatinine Ratio 13.6 Random Glucose 139 mg/dl Calcium Level 8.1 mg/dl Assessment and Plan 82 y/o F who was admitted on 05/18 for syncope in the setting of flu Syncope: hx of same and generally either vasovagal or related to hypoK K was low normal at 3.4 on admission Likely vasovagal in the setting of flu + will order PT/OT after volume resuscitated Flu A: outside of the window for tamiflu given sx x1 week supportive care with IVF, NSS + 40mEq K at 80cc/hr Leukocytosis: in the setting of chronic steroid use Will not add stress dose steroids at this time WBC now normal, no true fevers HypoK: went down to 3.2 from 3.4 despite 20mEq in fluids change fluids to have 40mEq K at 80cc/hr and give 20mEq K rider DM: stable, no home medications for this A1c 6.9 03/2017 Abn LFTs: stable Hypothyroid: pt was d/c'd 02/2017 with a decreased dose of synthroid due to fully depressed TSH. It was rechecked in March and still depressed and is again depressed today Pt is on 125mcg per husbands list. He states that Dr. Fung prefers this dose "because thyroid tests in the hospital are not reliable" Other: Full code, "all reasonable efforts" per Reg diet with IVF Heparin for DVT proph Keep on tele today, start PT/OT once feeling stronger
[2017-05-20] MEDS: POTASSIUM CHLORIDE INJ 40 MEQ in SODIUM CHLORIDE 0.9% 1000ML 1,000 ML IV SCH ×2 (03:34→17:30)
[2017-05-20 03:50] VITALS: BP 108/68; PULSE 75; TEMP 37; O2SAT 98
[2017-05-20] MEDS: HEPARIN SOD 5000 UNIT/0.5 ML CARP SQ SCH ×3 (06:14→21:59)
[2017-05-20] MEDS: LEVOTHYROXINE 125 MCG TAB PO SCH (06:15)
[2017-05-20 07:53] VITALS: BP 126/68; PULSE 79; TEMP 36.9; O2SAT 96
[2017-05-20] MEDS: AMMONIUM LACTATE 12% LOTION 225 GM BTL EXT SCH (09:00)
[2017-05-20] MEDS: DOCUSATE SODIUM 100 MG CAP PO SCH (09:00)
[2017-05-20 09:49] VITALS: Ht 165.1 cm; Wt 80.1 kg
[2017-05-20] MEDS: CHOLECALCIFEROL 1000 INTER.UNIT TAB PO SCH (09:51)
[2017-05-20] MEDS: MIRABEGRON ER 25 MG TAB PO SCH (09:51)
[2017-05-20] MEDS: LACTOBACILLUS ACIDOPHILUS (FLORANEX) TAB PO SCH (09:51)
[2017-05-20] MEDS: CALCITRIOL 0.25 MCG CAP PO SCH (09:51)
[2017-05-20] MEDS: PANTOprazole SOD 40 MG TAB PO SCH (09:52)
[2017-05-20] MEDS: MULTIVITAMIN TAB PO SCH (09:52)
[2017-05-20] MEDS: SERTRALINE HCL 50 MG TAB PO SCH (09:53)
[2017-05-20] MEDS: HYDROCORTISONE 10 MG TAB PO SCH ×2 (09:54→16:09)
[2017-05-20] MEDS: CALCIUM 600MG + VIT D 400 IU TAB PO SCH (09:55)
[2017-05-20] MEDS: POTASSIUM CHLORIDE 20 MEQ TABCR PO SCH ×2 (09:55→21:54)
[2017-05-20] MEDS: MUPIROCIN 2% OINT 22 GM TUBE TOP SCH ×2 (09:56→21:53)
[2017-05-20 10:28] LABS: CALCIUM 7.7 mg/dl (8.5-10.1); CREATININE 0.82 mg/dl (0.60-1.20); POTASSIUM 3.7 mmol/L (3.5-5.1)
[2017-05-20 11:26] VITALS: BP 115/57; PULSE 79; TEMP 36.6; O2SAT 94
--- NOTE | 2017-05-20 13:32 | Hospitalist Progress Note ---
Hospitalist Progress Note Date of Service May 20, 2017. Subjective Pt evaluation today including: conversation w/ patient, conversation w/ family , physical exam, chart review, lab review, review of inpatient medication list Voiding: pizarro catheter in place Ms. Valencia reports feeling much better today. No nausea or vomiting, taking in better po today than yesterday. ROS Constitutional: no chills, aches, sweats or fever Respiratory: no sob, reports non productive cough Cardiac: no chest pain, palpitations, edema, orthopnea or lightheadedness GI: no abdominal pain, nausea, vomiting, diarrhea or constipation : no dysuria or hesitancy Extremities: no joint pain or weakness Skin: no rash All other systems reviewed and negative Medications Medications (Trade) Dose Ordered Sig/Natalee Route Start Time Stop Time Status Last Admin Dose Admin Potassium Chloride 40 meq/ Sodium Chloride 1,020 ml @ 80 mls/hr [id number] IV 05/19/17 16:01 06/18/17 16:00 05/20/17 03:34 80 MLS/HR Objective Vital Signs Date Time Temp Pulse Resp B/P (MAP) Pulse Ox O2 Delivery O2 Flow Rate FiO2 05/20/17 11:26 36.6 79 24 115/57 (76) 94 Room Air 05/20/17 07:53 36.9 79 20 126/68 (87) 96 05/20/17 03:50 37.0 75 19 108/68 (81) 98 Nasal Cannula 3.0 05/20/17 03:30 Room Air 05/19/17 23:55 Room Air 05/19/17 23:45 36.6 80 26 123/72 (89) 97 Nasal Cannula 2.0 05/19/17 19:51 36.5 76 16 124/57 (79) 99 Nasal Cannula 2.0 05/19/17 19:30 Room Air 05/19/17 16:00 94 Nasal Cannula 2.0 05/19/17 15:59 37.0 91 20 119/64 (82) 94 Nasal Cannula 2.0 05/19/17 13:22 37.4 Physical Exam Notes: General: no distress Eyes: normal inspection, PERLL Respiratory: chest non tender, clear to auscultation, normal breath sounds, no respiratory distress, no accessory muscle use Cardiac: regular rate and rhythm, no rub or gallop, no murmur, no edema, no jvd GI/: active bowel sounds, no abd pain or tenderness, soft, non distended Extremities: normal range of motion, normal strength, non tender Neuro/Psych: alert and oriented x 3, normal mood and affect Skin: normal color, dry Laboratory Results Last 24 Hours Test 05/20/17 09:49 Sodium Level 137 mmol/L Potassium Level 3.7 mmol/L Chloride Level 107 mmol/L Carbon Dioxide Level 22 mmol/L Anion Gap 7.0 mmol/L Blood Urea Nitrogen 9 mg/dl Creatinine 0.82 mg/dl Est Creatinine Clear Calc Drug Dose 56.3 ml/min Estimated GFR () 77.8 Estimated GFR (Non- 67.1 BUN/Creatinine Ratio 10.4 Random Glucose 141 mg/dl Calcium Level 7.7 mg/dl Assessment and Plan 82 y/o F who was admitted on 05/18 for syncope in the setting of flu Syncope: hx of same and generally either vasovagal or related to hypoK K was low normal at 3.4 on admission, wnl today Likely vasovagal in the setting of flu + PT/OT Flu A: outside of the window for tamiflu given sx since Saturday supportive care with IVF, NSS + 40mEq K at 80cc/hr Leukocytosis: in the setting of chronic steroid use Continue low dose hydrocortisone WBC now normal, afebrile HypoK: went down to 3.2 from 3.4 despite 20mEq in fluids change fluids to have 40mEq K at 80cc/hr and give 20mEq K rider DM: stable, no home medications for this A1c 6.9 03/2017 Abn LFTs: stable Hypothyroid: pt was d/c'd 02/2017 with a decreased dose of synthroid due to fully depressed TSH. It was rechecked in March and still depressed and is again depressed today Pt is on 125mcg per husbands list. He states that Dr. Fung prefers this dose "because thyroid tests in the hospital are not reliable" Other: Full code, "all reasonable efforts" per Reg diet with IVF Heparin for DVT proph transfer to med/surg
[2017-05-20] MEDS: BOOST VANILLA PO SCH (13:59)
[2017-05-20] MEDS ORDERED: NURSING DECISION MEDICATION ORDER SCH (14:30)
[2017-05-20 15:34] VITALS: BP 115/57; PULSE 79; TEMP 36.6; O2SAT 94
[2017-05-20 16:00] VITALS: BP 103/68; PULSE 75; TEMP 36.7; O2SAT 95
[2017-05-20] MEDS ORDERED: CLOTRIMAZOLE 1% EXT SCH (21:00)
[2017-05-20] MEDS: MICONAZOLE NITRATE POWDER 43 GM EXT SCH (21:52)
[2017-05-20] MEDS: HYDROCORTISONE EXT SCH (21:52)
[2017-05-20] MEDS: CLOTRIMAZOLE EXT SCH (21:52)
[2017-05-20] MEDS: LATANOPROST 0.005% OP SOLN 2.5 ML BTL OPB SCH (21:53)
[2017-05-20] MEDS: DESMOPRESSIN ACETATE 0.1 MG TAB PO SCH (21:54)
[2017-05-21 00:22] VITALS: BP 127/66; PULSE 75; TEMP 36.4; O2SAT 95
[2017-05-21] MEDS: LEVOTHYROXINE 125 MCG TAB PO SCH (06:12)
[2017-05-21] MEDS: HEPARIN SOD 5000 UNIT/0.5 ML CARP SQ SCH ×2 (06:12→13:26)
[2017-05-21] MEDS: POTASSIUM CHLORIDE INJ 40 MEQ in SODIUM CHLORIDE 0.9% 1000ML 1,000 ML IV SCH (06:13)
[2017-05-21 07:28] LABS: HEMATOCRIT 34.9 % (37-47); HEMOGLOBIN 11.8 g/dL (12.0-16.0); MEAN CELL VOLUME 90.4 fL (80-100); MEAN CORPUSCULAR HEMOGLOBIN 30.6 pg (25-34); MEAN CORPUSCULAR HGB CONC 33.8 g/dl (32-36); MEAN PLATELET VOLUME 10.3 fL (7.4-10.4); PLATELET COUNT 161 K/uL (130-400); RED CELL DISTRIBUTION WIDTH CV 15.9 % (11.5-14.5); RED CELL DISTRIBUTION WIDTH SD 52.6 fL (36.4-46.3); WHITE BLOOD COUNT 6.24 K/uL (4.8-10.8)
[2017-05-21 07:53] VITALS: BP 128/82; PULSE 75; TEMP 36.8; O2SAT 95
[2017-05-21 07:55] LABS: CALCIUM 7.8 mg/dl (8.5-10.1); CREATININE 0.86 mg/dl (0.60-1.20)
[2017-05-21] MEDS: CHOLECALCIFEROL 1000 INTER.UNIT TAB PO SCH (08:25)
[2017-05-21] MEDS: LACTOBACILLUS ACIDOPHILUS (FLORANEX) TAB PO SCH (08:25)
[2017-05-21] MEDS: CALCITRIOL 0.25 MCG CAP PO SCH (08:26)
[2017-05-21] MEDS: CALCIUM 600MG + VIT D 400 IU TAB PO SCH (08:26)
[2017-05-21] MEDS: DOCUSATE SODIUM 100 MG CAP PO SCH (08:26)
[2017-05-21] MEDS: MIRABEGRON ER 25 MG TAB PO SCH (08:28)
[2017-05-21] MEDS: SERTRALINE HCL 50 MG TAB PO SCH (08:29)
[2017-05-21] MEDS: MULTIVITAMIN TAB PO SCH (08:30)
[2017-05-21] MEDS: PANTOprazole SOD 40 MG TAB PO SCH (08:30)
[2017-05-21] MEDS: HYDROCORTISONE 10 MG TAB PO SCH (08:30)
[2017-05-21] MEDS: POTASSIUM CHLORIDE 20 MEQ TABCR PO SCH (08:30)
[2017-05-21] MEDS: PROPYLENE GLYCOL 0.6% (OPHTH) 15 DROP/ML 10ML BTL OP PRN (08:31)
[2017-05-21] MEDS: MICONAZOLE NITRATE POWDER 43 GM EXT SCH (08:33)
[2017-05-21] MEDS: CLOTRIMAZOLE EXT SCH (08:34)
[2017-05-21] MEDS: AMMONIUM LACTATE 12% LOTION 225 GM BTL EXT SCH (08:34)
[2017-05-21] MEDS: HYDROCORTISONE EXT SCH (08:34)
[2017-05-21] MEDS: MUPIROCIN 2% OINT 22 GM TUBE TOP SCH (08:35)
--- NOTE | 2017-05-21 10:26 | Discharge Instructions ---
Discharge Instructions Date of Service May 21, 2017. Admission Reason for Admission: Flu, Vasovagal Syncope Discharge Discharge Diagnosis / Problem: Influenza A, vasovagal syncope Discharge Goals Goal(s): Improve disease control Activity Recommendations Activity Limitations: resume your previous activity . Instructions / Follow-Up Instructions / Follow-Up Please follow with your primary care provider in about a week Current Hospital Diet Patient's current hospital diet: Regular Diet Discharge Diet Recommended Diet: Regular Diet Procedures Procedures Performed: Chest X ray Pending Studies Studies pending at discharge: no Laboratory Results Hemoglobin A1c Test 03/27/17 10:10 Range/Units Estimated Average Glucose 151 mg/dl Hemoglobin A1c 6.9 H 4.5-5.6 % Medical Emergencies . Who to Call and When: Medical Emergencies: If at any time you feel your situation is an emergency, please call 911 immediately. . Non-Emergent Contact Non-Emergency issues call your: Primary Care Provider Call Non-Emergent contact if: you have a fever . . "Provider Documentation" section prepared by Gaye Jean. . VTE Core Measure Inpt VTE Proph given/why not?: Unfractionated heparin SQ
--- NOTE | 2017-05-21 10:27 | Discharge Summary ---
Discharge Summary Date of Service May 21, 2017. Discharge Summary Admission Date: May 18, 2017 at 12:51 Discharge Date: May 22, 2017 Discharge Disposition: Home Principal Diagnosis: Influenza a, vasovagal syncope Problems/Secondary Diagnoses: Leukocytosis, HypoK, DM, Abn LFTs, Hypothyroid Immunizations: Have You Had Influenza Vaccine: No Influenza Vaccine Date: Feb 04, 2010 History of Tetanus Vaccine?: No History of Pneumococcal: YES- [place] 2008 History of Hepatitis B Vaccine: No Procedures: CHEST ONE VIEW PORTABLE CLINICAL HISTORY: Altered mental status. Weakness. COMPARISON STUDY: Chest radiograph March 02, 2017. FINDINGS: Lung volumes are normal. No pneumothorax or pleural effusion is noted. There is no evidence for pulmonary edema. Cardiomediastinal silhouette is normal. Mild left basilar opacity favors atelectasis. IMPRESSION: No acute cardiopulmonary findings. Medication Reconciliation Continued Medications: Acetaminophen (Tylenol) 325 Mg Tab 650 MG PO Q6H PRN for Pain, TAB DO NOT EXCEED 3GRAMS PER DAY Alendronate Sodium (Alendronate Sodium) 70 Mg Tab 70 MG PO WK ON SUNDAYS. TAKE THIS MEDICATION ONCE WEEKLY 30 TO 60 MINUTES PRIOR TO BREAKFAST OM AM EMPTY STOMACH. DO NOT LIE DOWN AFTER TAKING THIS MEDICATION. Calcitriol (Calcitriol) 0.25 Mcg Cap 0.25 MCG PO DAILY Calcium Carbonate-Cholecalcife (Caltrate 600+D) 1 Tab Tab 1 TAB PO DAILY Chlorthalidone (Hygroton) 25 Mg Tab 12.5 MG PO DAILY Cholecalciferol (Vitamin D-3) 1,000 Unit Tab 1000 INTER.UNIT PO DAILY Desmopressin Acetate (Desmopressin Acetate) 0.1 Mg Tab 0.05 MG PO DAILY Docusate Sodium (Docusate Sodium) 100 Mg Cap 100 MG PO DAILY Fluocinonide (Fluocinonide) 0.05 % Leslie 1 APPLN TOP BID Hydrocortisone (Cortef) 10 Mg Tab 15 MG PO QAM, TAB Hydrocortisone (Cortef) 10 Mg Tab 5 MG PO 1600, TAB Lactic Acid (Ammonium Lactate) (Ammonium Lactate) 12 % Lot 1 APPLN TOP UD Latanoprost (Latanoprost) 37 Drops/2.5 Ml Soln 1 DROP OPB HS Levothyroxine Sodium (Levothyroxine Sodium) 125 Mcg Tab 125 MCG PO QAM Lorazepam (Ativan) 0.5 Mg Tab 0.25-0.5 MG PO UD PRN for Anxiety Menthol (Topical Analgesic) (Biofreeze) Unknown Strength Gel 1 APPLN TOP UD PRN for Pain APPLY PER PACKAGE DIRECTIONS Mirabegron (Myrbetriq Er) 50 Mg Tab 50 MG PO DAILY Multivitamin (Multivitamin) Tab 1 TAB PO DAILY, TAB Mupirocin Calcium (Topical) (Mupirocin) 2 % Cre 1 APPLN TOP BID Omeprazole (Prilosec) 20 Mg Cap 20 MG PO QAM, CAP Polyethylene Glycol-Propylene (Systane Ultra) 1 Leslie Leslie 1 DROP OP Q4-6 HRS, ML Potassium Chloride Microencaps (Potassium Chloride Er) 20 Meq Tab 20 MEQ PO BID Probiotic Product (Align) 4 Mg Cap 4 MG PO QAM Saline ([place] Nasal [place]) 0.65 % Spr 1 SPRAY OSVALDO UD Sertraline HCl (Sertraline HCl) 50 Mg Tab 25 MG PO DAILY [Compounded Med] () 1 APPLN TOP BID PHARMACIST TO MIX HYDROCORTISONE 1% CREAM WITH CLOTRIMAZOLE 1% CREAM Discharge Exam ROS Constitutional: no chills, aches, sweats or fever Respiratory: no sob,cough, sputum, or wheezing Cardiac: no chest pain, palpitations, edema, orthopnea or lightheadedness GI: no abdominal pain, nausea, vomiting, diarrhea or constipation : no dysuria or hesitancy Extremities: no joint pain or weakness Skin: no rash All other systems reviewed and negative PE General: no distress Eyes: normal inspection, PERLL Respiratory: chest non tender, clear to auscultation, normal breath sounds, no respiratory distress, no accessory muscle use Cardiac: regular rate and rhythm, no rub or gallop, no murmur, no edema, no jvd GI/: active bowel sounds, no abd pain or tenderness, soft, non distended Extremities: normal range of motion, normal strength, non tender Neuro/Psych: alert and oriented x 3, normal mood and affect Skin: normal color, dry Hospital Course 82 y/o F who was brought to the ED 05/18 by her and caregiver for syncopal episode. Caregiver who is familiar with pt stated that this happens at times with pt from toilet. She also states this happens when K is low. 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 She has gotten progressively weaker since this time and needed help today after the syncopal episode. Syncope: hx of same and generally either vasovagal or related to hypoK - no events while during this admission K was low normal at 3.4 on admission Likely vasovagal in the setting of flu + PT/OT - ok to return home with caretakers Flu A: outside of the window for tamiflu given sx since Saturday supportive care with IVF, NSS + 40mEq K at 80cc/hr Leukocytosis: in the setting of chronic steroid use Continued maintenance hydrocortisone WBC now normal, afebrile HypoK: repleated and stable DM: stable, no home medications for this A1c 6.9 03/2017 Abn LFTs: stable Hypothyroid: pt was d/c'd 02/2017 with a decreased dose of synthroid due to fully depressed TSH. It was rechecked in March and still depressed and is again depressed today Pt is on 125mcg per 's med list. He states that Dr. Fung prefers this dose and review of outpatient notes confirms this. Will leave home dose as is. 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 Discharge Instructions Please refer to the electronic Patient Visit Report (Discharge Instructions) for additional information. Follow-Up PCP in 1 week
[2017-05-21] MEDS: BOOST VANILLA PO SCH (11:32)
[2017-05-21 13:52] VITALS: BP 128/82; PULSE 75; TEMP 36.8; O2SAT 95
== END 2017-05-21 14:35 | disposition home or self-care (01) | DRG 194 ==
LOC: EDBD 07:05 → C.EDB 07:07 → C.2E 12:51 → UNDOADMIN 12:51 → ENRESERV 13:14 → C.MS2W 05-20 15:46
PROVIDERS: ADMIT Family Medicine; ATTEND Hospitalist
DX: J10.1 Influenza due to other identified influenza virus with other respiratory manifestations (principal); E23.0 Hypopituitarism; R55 Syncope and collapse; E87.6 Hypokalemia; D72.829 Elevated white blood cell count, unspecified; E03.9 Hypothyroidism, unspecified; E11.9 Type 2 diabetes mellitus without complications; I25.2 Old myocardial infarction; F32.9 Major depressive disorder, single episode, unspecified; H40.9 Unspecified glaucoma; K21.9 Gastro-esophageal reflux disease without esophagitis; Z79.899 Other long term (current) drug therapy; Z79.52 Long term (current) use of systemic steroids; Z80.3 Family history of malignant neoplasm of breast; Z80.52 Family history of malignant neoplasm of bladder; Z80.8 Family history of malignant neoplasm of other organs or systems

== ENCOUNTER → 2017-07-01 | Outpatient (CLI) | payer OTHER, BC ==
[~2017-07-01] MED LIST changes: +COMPOUNDED MED TOP; +DESM0.1T12 PO; -DESM0.1T8 PO; +LEVO125T5 PO; +LORA-741 PO; -POLY335019 PO; -SYN100 PO; +ZLF/50 PO
[2017-07-01 12:49] LABS: HEMOGLOBIN A1C 7.2 % (4.5-5.6)
[2017-07-01 13:00] LABS: ALBUMIN 2.9 gm/dl (3.4-5.0); ALT/SGPT 74 U/L (12-78); AST/SGOT 34 U/L (15-37); BLOOD UREA NITROGEN 20 mg/dl (7-18); CALCIUM 8.9 mg/dl (8.5-10.1); CARBON DIOXIDE 28 mmol/L (21-32); CREATININE 1.07 mg/dl (0.60-1.20); GLUCOSE 213 mg/dl (70-99); POTASSIUM 3.6 mmol/L (3.5-5.1); SODIUM 137 mmol/L (136-145)
[2017-07-01 13:02] LABS: ALKALINE PHOSPHATASE 117 U/L (45-117); TOTAL PROTEIN 6.7 gm/dl (6.4-8.2)
== END | disposition home or self-care (01) ==
LOC: C.LABPVFM 08:43
PROVIDERS: ATTEND Internal Medicine Endocrinology, Diabetes & Metabolism
DX: E11.9 Type 2 diabetes mellitus without complications (principal); R74.8 Abnormal levels of other serum enzymes

== ENCOUNTER 2017-07-30 08:40 | Emergency (ER) | payer OTHER, BC ==
[~2017-07-30] VITALS: Ht 157.5 cm; Wt 85.0 kg
[2017-07-30 08:53] VITALS: TEMP 37.4; Ht 157.5 cm; Wt 85.0 kg
[2017-07-30 08:59] VITALS: O2SAT 95
[2017-07-30] MEDS ORDERED: SODIUM CHLORIDE 0.9% 1000ML 1,000 ML IV STA (09:04)
--- NOTE | 2017-07-30 09:37 | DIAGNOSTIC IMAGING REPORT ---
CHEST ONE VIEW PORTABLE CLINICAL HISTORY: EVALUATE ALTERED MENTAL STATUS/WEAKNESS COMPARISON STUDY: Chest radiograph May 18, 2017. FINDINGS: Lung volumes are normal. No pneumothorax or pleural effusion is noted. There is no consolidation cardiomediastinal silhouette is normal. Pulmonary vascularity is normal. IMPRESSION: No acute cardiopulmonary findings. Electronically signed by: Jhoan Mena M.D. 07/30/2017 9:36 AM Dictated Date/Time: 07/30/2017 9:34 AM
[2017-07-30] MEDS ORDERED: GLIM1TAB2 PO (09:51)
[2017-07-30] MEDS ORDERED: SKINCRE42 TOP (09:51)
[2017-07-30] MEDS ORDERED: MCTP/85 TOP (09:51)
[2017-07-30 11:38] LABS: BASO % 0.2 %; BASO ABS # 0.03 K/uL (0-0.2); EOS % 0.6 %; HEMATOCRIT 44.2 % (37-47); HEMOGLOBIN 15.1 g/dL (12.0-16.0); IG# 0.39 K/uL (0.00-0.02); LYMPH % 6.8 %; LYMPH ABS # 1.11 K/uL (1.2-3.4); MEAN CELL VOLUME 91.5 fL (80-100); MEAN CORPUSCULAR HEMOGLOBIN 31.3 pg (25-34); MEAN CORPUSCULAR HGB CONC 34.2 g/dl (32-36); MEAN PLATELET VOLUME 10.9 fL (7.4-10.4); MONO % 6.4 %; MONO ABS # 1.05 K/uL (0.11-0.59); NEUT % 83.6 %; NUCLEATED RED BLOOD CELL ABS 0.04 K/uL (0-0); PLATELET COUNT 242 K/uL (130-400); RED CELL DISTRIBUTION WIDTH CV 15.9 % (11.5-14.5); RED CELL DISTRIBUTION WIDTH SD 53.2 fL (36.4-46.3); WHITE BLOOD COUNT 16.28 K/uL (4.8-10.8)
[2017-07-30 12:04] LABS: ALBUMIN 2.9 gm/dl (3.4-5.0); BLOOD UREA NITROGEN 23 mg/dl (7-18); CALCIUM 8.5 mg/dl (8.5-10.1); CARBON DIOXIDE 26 mmol/L (21-32); CREATININE 1.44 mg/dl (0.60-1.20); GLUCOSE 138 mg/dl (70-99); POTASSIUM 3.2 mmol/L (3.5-5.1); SODIUM 141 mmol/L (136-145)
[2017-07-30 12:10] LABS: ALKALINE PHOSPHATASE 101 U/L (45-117); ALT/SGPT 79 U/L (12-78); AST/SGOT 73 U/L (15-37); CKMB 0.8 ng/ml (0.5-3.6); TOTAL PROTEIN 6.8 gm/dl (6.4-8.2)
[2017-07-30] MEDS ORDERED: ONDA4TAB10 SL (13:20)
[2017-07-30 13:39] VITALS: BP 114/68; PULSE 114; O2SAT 94
--- NOTE | 2017-07-30 14:45 | EMERGENCY ROOM VISIT NOTE ---
History Report prepared by Eliezer: Jossie Sanchez Under the Supervision of: Dr. Freddy Villanueva D.O. 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 The patient presents to the ED by EMS. The patient passed out in the bathroom this morning after having a bowel movement. She also vomited several times this morning. The patient currently denies any complaints. She denies any SOB or chest pain. She reports that she had the flu 1 week ago. The patient uses a walker to ambulate. She has been able to get around. Her notes that she has had these symptoms with UTI in the past. 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 A total of 10 systems reviewed and were otherwise negative. 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 (19) Sepsis (20) Ureterolithiasis (21) UTI (urinary tract infection) Family History Bladder cancer MOTHER Breast cancer SISTER FH: kidney disease FHx: heart disease Skin cancer MOTHER Social History Smoking Status: Never Smoker Alcohol Use: none Drug Use: none Marital Status: Housing Status: lives with family Occupation Status: retired Current/Historical Medications Scheduled Alendronate Sodium (Alendronate Sodium), 70 MG PO WK Calcitriol (Calcitriol), 0.25 MCG PO DAILY Calcium Carbonate-Cholecalcife (Caltrate 600+D), 1 TAB PO DAILY Chlorthalidone (Hygroton), 12.5 MG PO DAILY Cholecalciferol (Vitamin D-3), 1,000 INTER.UNIT PO DAILY Desmopressin Acetate (Desmopressin Acetate), 0.05 MG PO DAILY Docusate Sodium (Docusate Sodium), 100 MG PO DAILY Fluocinonide (Fluocinonide), 1 APPLN TOP BID Glimepiride (Glimepiride), 0.5 MG PO QAM Hydrocortisone (Cortef), 15 MG PO QAM Hydrocortisone (Cortef), 5 MG PO DAILY Lactic Acid (Ammonium Lactate) (Ammonium Lactate), 1 APPLN TOP UD Latanoprost (Latanoprost), 1 DROP OPB HS Levothyroxine Sodium (Levothyroxine Sodium), 125 MCG PO QAM Miconazole Nitrate (Desenex Shake Powder), 1 APPLN TOP TID Mirabegron (Myrbetriq Er), 50 MG PO DAILY Multivitamin (Multivitamin), 1 TAB PO DAILY Mupirocin Calcium (Topical) (Mupirocin), 1 APPLN TOP BID Omeprazole (Prilosec), 20 MG PO QAM Ondasetron Odt (Zofran Odt), 4 MG SL Q6H Polyethylene Glycol-Propylene (Systane Ultra), 1 DROP OP Q4-6 HRS Potassium Chloride Microencaps (Potassium Chloride Er), 20 MEQ PO BID Probiotic Product (Align), 4 MG PO QAM Saline ([place] Nasal [place]), 1 SPRAY OSVALDO UD Sertraline HCl (Sertraline HCl), 25 MG PO DAILY Skin Protectants, Misc. (Sensi-Care Moisturizing), 1 APPLN TOP BID [Compounded Med], 1 APPLN TOP BID Scheduled PRN Acetaminophen (Tylenol), 650 MG PO Q6H PRN for Pain Lorazepam (Ativan), 0.25-0.5 MG PO UD PRN for Anxiety Menthol (Topical Analgesic) (Biofreeze), 1 APPLN TOP UD PRN for Pain Allergies Coded Allergies: Amoxicillin (Verified Allergy, Intermediate, Swelling of Lips, 07/30/17) Ciprofloxacin (Verified Allergy, Intermediate, RASH, NAUSEA, 07/30/17) has tolerated levaquin without any notable problem (see September 2016 admission) Sulfa Antibiotics (Verified Allergy, Intermediate, RASH, 07/30/17) Biotin (Verified Allergy, Unknown, UNKN, 07/30/17) Cefepime (Verified Adverse Reaction, Severe, HALLUCINATIONS, 07/30/17) Diphenhydramine (Verified Adverse Reaction, Severe, HYPER INSOMNIA, ) Mirtazapine (Verified Adverse Reaction, Intermediate, altered mental status changes, 07/30/17) Nitrofurantoin (Verified Adverse Reaction, Intermediate, CHEST PAIN, CONFUSION, 07/30/17) Oxycodone (Verified Adverse Reaction, Mild, N/V, 07/30/17) Physical Exam Vital Signs Date Time Temp Pulse Resp B/P (MAP) Pulse Ox O2 Delivery O2 Flow Rate FiO2 07/30/17 13:39 114 19 114/68 94 Room Air 07/30/17 13:28 115 07/30/17 11:40 115 20 95 07/30/17 11:10 120 20 95 07/30/17 10:40 117 24 95 07/30/17 10:34 112/68 07/30/17 10:10 119 20 95 07/30/17 09:40 122 19 97 07/30/17 09:10 111 22 85 07/30/17 09:05 115 07/30/17 08:59 95 Room Air 07/30/17 08:59 95 Room Air 07/30/17 08:53 37.4 115 24 141/70 95 Room Air 07/30/17 08:46 141/70 Physical Exam CONSTITUTIONAL/VITAL SIGNS: Reviewed / noted above. GENERAL: Non-toxic in appearance. INTEGUMENTARY: Warm, dry, and Many. HEAD: Normocephalic. EYES: without scleral icterus or trauma. ENT/OROPHARYNX: clear and moist. LYMPHADENOPATHY/NECK: Is supple without lymphadenopathy or meningismus. RESPIRATORY: Lungs clear and equal. CARDIOVASCULAR: Regular rate and rhythm. GI/ABDOMEN: Soft and nontender. No organomegaly or pulsatile mass. No rebound or guarding. Normal bowel sounds. EXTREMITIES: Warm and well perfused. BACK: No CVA tenderness. NEUROLOGICAL: Intact without focal deficits. PSYCHIATRIC: normal affect. MUSCULOSKELETAL: Normally developed with good muscle tone. Medical Decision & Procedures ER Provider Diagnostic Interpretation: X ray results and stated below per my interpretation and radiology interpretation. CHEST ONE VIEW PORTABLE CLINICAL HISTORY: EVALUATE ALTERED MENTAL STATUS/WEAKNESS COMPARISON STUDY: Chest radiograph May 18, 2017. FINDINGS: Lung volumes are normal. No pneumothorax or pleural effusion is noted. There is no consolidation cardiomediastinal silhouette is normal. Pulmonary vascularity is normal. IMPRESSION: No acute cardiopulmonary findings. Electronically signed by: Jhoan Mena M.D. 07/30/2017 9:36 AM Dictated Date/Time: 07/30/2017 9:34 AM Laboratory Results 07/30/17 11:23 Red Blood Count 4.83, Mean Corpuscular Volume 91.5, Mean Corpuscular Hemoglobin 31.3, Mean Corpuscular Hemoglobin Concent 34.2, Mean Platelet Volume 10.9, Neutrophils (%) (Auto) 83.6, Lymphocytes (%) (Auto) 6.8, Monocytes (%) (Auto) 6.4, Eosinophils (%) (Auto) 0.6, Basophils (%) (Auto) 0.2, Neutrophils # (Auto) 13.60, Lymphocytes # (Auto) 1.11, Monocytes # (Auto) 1.05, Eosinophils # (Auto) 0.10, Basophils # (Auto) 0.03 07/30/17 11:23 Test 07/30/17 09:15 07/30/17 11:23 Urine Color YELLOW Urine Appearance CLEAR (CLEAR) Urine pH 6.5 (4.5-7.5) Urine Specific [place] 1.016 (1.000-1.030) Urine Protein NEG (NEG) Urine Glucose (UA) NEG (NEG) Urine Ketones NEG (NEG) Urine Occult Blood NEG (NEG) Urine Nitrite NEG (NEG) Urine Bilirubin NEG (NEG) Urine Urobilinogen NEG (NEG) Urine Leukocyte Esterase TRACE (NEG) Urine WBC (Auto) 1-5 /hpf (0-5) Urine RBC (Auto) 0-4 /hpf (0-4) Urine Hyaline Casts (Auto) 1-5 /lpf (0-5) Urine Epithelial Cells (Auto) 20-30 /lpf (0-5) Urine Bacteria (Auto) 2+ (NEG) White Blood Count 16.28 K/uL (4.8-10.8) Red Blood Count 4.83 M/uL (4.2-5.4) Hemoglobin 15.1 g/dL (12.0-16.0) Hematocrit 44.2 % (37-47) Mean Corpuscular Volume 91.5 fL (80-100) Mean Corpuscular Hemoglobin 31.3 pg (25-34) Mean Corpuscular Hemoglobin Concent 34.2 g/dl (32-36) Platelet Count 242 K/uL (130-400) Mean Platelet Volume 10.9 fL (7.4-10.4) Neutrophils (%) (Auto) 83.6 % Lymphocytes (%) (Auto) 6.8 % Monocytes (%) (Auto) 6.4 % Eosinophils (%) (Auto) 0.6 % Basophils (%) (Auto) 0.2 % Neutrophils # (Auto) 13.60 K/uL (1.4-6.5) Lymphocytes # (Auto) 1.11 K/uL (1.2-3.4) Monocytes # (Auto) 1.05 K/uL (0.11-0.59) Eosinophils # (Auto) 0.10 K/uL (0-0.5) Basophils # (Auto) 0.03 K/uL (0-0.2) RDW Standard Deviation 53.2 fL (36.4-46.3) RDW Coefficient of Variation 15.9 % (11.5-14.5) Immature Granulocyte % (Auto) 2.4 % Immature Granulocyte # (Auto) 0.39 K/uL (0.00-0.02) Nucleated RBC Absolute Count (auto) 0.04 K/uL (0-0) Nucleated Red Blood Cells % 0.2 % Prothrombin Time 10.4 SECONDS (9.0-12.0) Prothromb Time International Ratio 1.0 (0.9-1.1) Activated Partial Thromboplast Time 25.0 SECONDS (21.0-31.0) Partial Thromboplastin Ratio 1.0 Anion Gap 11.0 mmol/L (3-11) Est Creatinine Clear Calc Drug Dose 31.0 ml/min Estimated GFR () 39.4 Estimated GFR (Non- 34.0 BUN/Creatinine Ratio 15.6 (10-20) Calcium Level 8.5 mg/dl (8.5-10.1) Total Bilirubin 0.7 mg/dl (0.2-1) Direct Bilirubin 0.2 mg/dl (0-0.2) Aspartate Amino Transf (AST/SGOT) 73 U/L (15-37) Alanine Aminotransferase (ALT/SGPT) 79 U/L (12-78) Alkaline Phosphatase 101 U/L (45-117) Total Creatine Kinase 44 U/L (26-192) Creatine Kinase MB 0.8 ng/ml (0.5-3.6) Creatine Kinase MB Ratio 1.8 (0-3.0) Troponin I < 0.015 ng/ml (0-0.045) Total Protein 6.8 gm/dl (6.4-8.2) Albumin 2.9 gm/dl (3.4-5.0) Laboratory results as stated above per my review. Medications Administered Medications (Trade) Dose Ordered Sig/Natalee Route Start Time Stop Time Status Last Admin Dose Admin Sodium Chloride 1,000 ml @ 200 mls/hr Q5H STAT IV 07/30/17 09:04 07/30/17 14:03 DC 07/30/17 09:54 200 MLS/HR ECG Per My Interpretation Indication: syncope Rate (beats per minute): 120 Rhythm: sinus tachycardia Findings: no ectopy, other (no ST elevation) ED Course 0900: Previous medical records were reviewed. The patient was evaluated in room B11B. A complete history and physical examination was performed. 0904: Sodium Chloride 1000 ml @ 200 mls/hr IV. 1311: On reevaluation, the patient is resting comfortably. I discussed the results and findings with the patient. She verbalized agreement of the treatment plan. She was discharged home. Medical Decision Differentials include: Acute coronary syndrome, myocardial infarction, CVA, TIA , anemia, infection, pneumonia, UTI, pyelonephritis, poor nutrition, dehydration , electrolyte disturbance, and hypoglycemia. This is an 82-year-old female who presents to the ED with a chief complaint of a syncopal episode while on the toilet. There was no trauma. She also had a couple of episodes of vomiting this morning. She vomited twice during EMS transport. The patient currently has no specific complaints. She denies headaches, chest pains, shortness of breath, recent illness other than the flu a week or 2 ago. Her physical exam was unremarkable. There is no evidence of trauma. A chest x-ray is negative for acute disease. White blood cell count was 16.28. This has been elevated up to 13,000 in the past. Urine did not show obvious infection. BUN was 23 and creatinine is 1.44. Troponin was negative. The patient was given IV fluids during her ED stay. On reassessment , the patient denies any complaints. She desires to go home. The patient was prescribed Zofran. The was here and will take her home. He thinks that her symptoms might be related to a GI bug or food poisoning...... Medication Reconcilliation Current Medication List: was personally reviewed by me Blood Pressure Screening Patient's blood pressure: Normal blood pressure Blood pressure disposition: Did not require urgent referral Impression Primary Impression: Syncope Additional Impression: Vomiting Scribe Attestation The scribe's documentation has been prepared under my direction and personally reviewed by me in its entirety. I confirm that the note above accurately reflects all work, treatment, procedures, and medical decision making performed by me. Departure Information Dispostion Home / Self-Care Prescriptions Ondasetron Odt (ZOFRAN ODT) 4 Mg Tab 4 MG SL Q6H for Nausea, #15 TAB Prov: Freddy Villanueva D.O. 07/30/17 Referrals Dank Carrillo M.D. (PCP) Forms HOME CARE DOCUMENTATION FORM, IMPORTANT VISIT INFORMATION, WORK / SCHOOL INSTRUCTIONS Patient Instructions My [facility] [place] Additional Instructions Zofran: Allow one tablet to dissolve under the tongue every 6 hours as needed for nausea or vomiting. Follow-up with your doctor for further care and evaluation in 1-2 days. Return to the emergency department for worsening or new symptoms or any concerns. You have been examined and treated today on an emergency basis only. This is not a substitute for, or an effort to provide, complete comprehensive medical care. It is impossible to recognize and treat all injuries or illnesses in a single emergency department visit. It is therefore important that you follow up closely with your doctor. Call as soon as possible for an appointment. Problem Qualifiers
--- NOTE | 2017-08-01 16:23 | Pharmacy Progress Note ---
ED Pharmacist Culture FollowUp Date of Service: Aug 01, 2017. Patient growing boyd sensitive enterococcus in the urine not discharged with any antibiotics. I faxed the results to the patient's PCP, Dr. Carrillo ), with whom the patient followed up with yesterday. I spoke directly to Dr. Finney who informed me she reviewed the culture, and prescribed appropriate antibiotics.
== END 2017-07-30 14:00 | disposition home or self-care (01) ==
LOC: EDBD 08:40 → C.EDB 08:42
DX: R55 Syncope and collapse (principal); R11.10 Vomiting, unspecified; Z87.440 Personal history of urinary (tract) infections; F32.9 Major depressive disorder, single episode, unspecified; K21.9 Gastro-esophageal reflux disease without esophagitis; H40.9 Unspecified glaucoma; E78.00 Pure hypercholesterolemia, unspecified; I25.2 Old myocardial infarction; E23.0 Hypopituitarism; Z80.52 Family history of malignant neoplasm of bladder; Z80.3 Family history of malignant neoplasm of breast; Z84.1 Family history of disorders of kidney and ureter; Z79.899 Other long term (current) drug therapy; Z88.0 Allergy status to penicillin; Z88.1 Allergy status to other antibiotic agents; Z88.2 Allergy status to sulfonamides; Z88.5 Allergy status to narcotic agent; Z88.8 Allergy status to other drugs, medicaments and biological substances

== ENCOUNTER 2017-08-03 13:20 | Emergency (ER) | payer OTHER, BC ==
[~2017-08-03] VITALS: Ht 157.5 cm; Wt 83.0 kg
[~2017-08-03 13:20] MED LIST changes: +GLIM1TAB2 PO; +MCTP/85 TOP; +ONDA4TAB10 SL; +SKINCRE42 TOP
[2017-08-03 13:24] VITALS: TEMP 36.7; Ht 157.5 cm; Wt 83.0 kg
[2017-08-03] MEDS ORDERED: SODIUM CHLORIDE 0.9% 250ML 250 ML IV STA (14:02)
--- NOTE | 2017-08-03 14:28 | DIAGNOSTIC IMAGING REPORT ---
CHEST ONE VIEW PORTABLE CLINICAL HISTORY: Acute change in mental status COMPARISON STUDY: 07/30/2017 FINDINGS: The cardiac and mediastinal contours are normal. There is no evidence of focal pulmonary consolidation. There is no evidence of failure. No pleural effusions are visualized.[ There are minor left basilar atelectatic changes. IMPRESSION: No active disease in the chest. Electronically signed by: Lico Cabral M.D. 08/03/2017 2:26 PM Dictated Date/Time: 08/03/2017 2:23 PM
--- NOTE | 2017-08-03 14:49 | EMERGENCY ROOM VISIT NOTE ---
History First contact with patient: 13:47 Chief Complaint: OTHER COMPLAINT Stated Complaint: NO SLEEP 48 HR, WEAK, DISORIENTED, HALLUCINATING History of Present Illness The patient is a 82 year old female who presents to the Emergency Room with complaints of altered mental status for the last 2 days. The patient's reports that she is being treated for urinary tract infection. She has had 4 doses of Keflex. The patient currently denies any urinary symptoms. No fever or chills. She denies any pain. The patient did have a few episodes of nausea and vomiting earlier this week. She was seen in the emergency department and treated with IV fluids, and sent home. Upon review of outside records, the patient is growing E faecalis sensitive to penicillins. The patient's notes that she has not slept in 48 hours. She also has been hallucinating and talking to people that are not there. No other recent changes in medications. 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 (19) Sepsis (20) Ureterolithiasis (21) UTI (urinary tract infection) Family History Bladder cancer MOTHER Breast cancer SISTER FH: kidney disease FHx: heart disease Skin cancer MOTHER Social History Smoking Status: Never Smoker Alcohol Use: none Drug Use: none Marital Status: Housing Status: lives with family Occupation Status: retired Current/Historical Medications Scheduled Alendronate Sodium (Alendronate Sodium), 70 MG PO WK Calcitriol (Calcitriol), 0.25 MCG PO DAILY Calcium Carbonate-Cholecalcife (Caltrate 600+D), 1 TAB PO DAILY Chlorthalidone (Hygroton), 12.5 MG PO DAILY Cholecalciferol (Vitamin D-3), 1,000 INTER.UNIT PO DAILY Desmopressin Acetate (Desmopressin Acetate), 0.05 MG PO DAILY Docusate Sodium (Docusate Sodium), 100 MG PO DAILY Fluocinonide (Fluocinonide), 1 APPLN TOP BID Hydrocortisone (Cortef), 15 MG PO QAM Hydrocortisone (Cortef), 5 MG PO DAILY Lactic Acid (Ammonium Lactate) (Ammonium Lactate), 1 APPLN TOP UD Latanoprost (Latanoprost), 1 DROP OPB HS Levothyroxine Sodium (Levothyroxine Sodium), 125 MCG PO QAM Miconazole Nitrate (Desenex Shake Powder), 1 APPLN TOP TID Mirabegron (Myrbetriq Er), 50 MG PO DAILY Multivitamin (Multivitamin), 1 TAB PO DAILY Mupirocin Calcium (Topical) (Mupirocin), 1 APPLN TOP BID Omeprazole (Prilosec), 20 MG PO QAM Ondasetron Odt (Zofran Odt), 4 MG SL Q6H Polyethylene Glycol-Propylene (Systane Ultra), 1 DROP OP Q4-6 HRS Potassium Chloride Microencaps (Potassium Chloride Er), 20 MEQ PO BID Probiotic Product (Align), 4 MG PO QAM Saline ([place] Nasal [place]), 1 SPRAY OSVALDO UD Sertraline HCl (Sertraline HCl), 25 MG PO DAILY Skin Protectants, Misc. (Sensi-Care Moisturizing), 1 APPLN TOP BID [Compounded Med], 1 APPLN TOP BID Scheduled PRN Acetaminophen (Tylenol), 650 MG PO Q6H PRN for Pain Lorazepam (Ativan), 0.25-0.5 MG PO UD PRN for Anxiety Menthol (Topical Analgesic) (Biofreeze), 1 APPLN TOP UD PRN for Pain Physical Exam Vital Signs Date Time Temp Pulse Resp B/P (MAP) Pulse Ox O2 Delivery O2 Flow Rate FiO2 08/03/17 18:00 87 20 143/85 94 Room Air 08/03/17 17:06 90 08/03/17 16:50 82 18 157/76 96 Room Air 08/03/17 15:47 69 18 140/101 96 Room Air 08/03/17 14:00 65 18 147/89 96 Room Air 08/03/17 13:43 67 4/14/18 13:24 36.7 67 20 119/75 94 Room Air Physical Exam VITALS: Vitals are noted on the nurse's note and reviewed by myself. Vital signs stable. GENERAL: 82-year-old female, in no acute distress, nondiaphoretic, well- developed well-nourished. SKIN: The skin was without rashes, erythema, edema, or bruising. HEAD: Normocephalic atraumatic. EARS: External auditory canals clear, tympanic membranes pearly chan without erythema or effusion bilaterally. EYES: Pupils equal round and reactive to light and accommodation. Conjunctivae without injection, sclerae without icterus. Extraocular movements intact. MOUTH: Mucous membranes slightly dry. No exudate. NECK: Supple without nuchal rigidity. . No JVD. HEART: Regular rate and rhythm without murmurs gallops or rubs. LUNGS: Clear to auscultation bilaterally without wheezes, rales or rhonchi. No accessory muscle use. ABDOMEN: Positive bowel sounds x 4.Soft, nontender, without organomegaly. No guarding or rebound tenderness. MUSCULOSKELETAL: No muscle atrophy, erythema, or edema noted. . Strength 5/5 throughout. NEURO: Patient was alert and oriented to person and place. She states that the year is 2017. She is otherwise answering all questions appropriately.. Cranial nerves grossly intact. Normal sensation to touch. Medical Decision & Procedures ER Provider Diagnostic Interpretation: Chest x-ray IMPRESSION: No active disease in the chest. Electronically signed by: Lico Cabral M.D. 08/03/2017 2:26 PM Dictated Date/Time: 08/03/2017 2:[address] head IMPRESSION: No active disease in the chest. Electronically signed by: Lico Cabral M.D. 08/03/2017 2:26 PM Dictated Date/Time: 08/03/2017 2:[address] abdomen and pelvis IMPRESSION: 1. No bowel wall thickening or obstruction. 2. Colonic diverticulosis. 3. No evidence for acute appendicitis. 4. Bilateral nephrolithiasis. No ureteral stones. No hydronephrosis. 5. Prior cholecystectomy. Small amount of pneumobilia is noted. 6. Additional stable findings as described above. Electronically signed by: Joey Archer M.D. 08/03/2017 5:54 PM Dictated Date/Time: 08/03/2017 5:43 PM Laboratory Results 08/03/17 14:29 Red Blood Count 3.98, Mean Corpuscular Volume 88.9, Mean Corpuscular Hemoglobin 31.4, Mean Corpuscular Hemoglobin Concent 35.3, Mean Platelet Volume 10.9, Neutrophils (%) (Auto) 75.7, Lymphocytes (%) (Auto) 10.9, Monocytes (%) (Auto) 10.5, Eosinophils (%) (Auto) 1.8, Basophils (%) (Auto) 0.2, Neutrophils # (Auto ) 6.62, Lymphocytes # (Auto) 0.95, Monocytes # (Auto) 0.92, Eosinophils # (Auto ) 0.16, Basophils # (Auto) 0.02 08/03/17 14:29 Test 08/03/17 13:49 08/03/17 14:29 Urine Color YELLOW Urine Appearance CLEAR (CLEAR) Urine pH 7.0 (4.5-7.5) Urine Specific [place] 1.016 (1.000-1.030) Urine Protein NEG (NEG) Urine Glucose (UA) NEG (NEG) Urine Ketones NEG (NEG) Urine Occult Blood NEG (NEG) Urine Nitrite NEG (NEG) Urine Bilirubin NEG (NEG) Urine Urobilinogen NEG (NEG) Urine Leukocyte Esterase NEG (NEG) White Blood Count 8.75 K/uL (4.8-10.8) Red Blood Count 3.98 M/uL (4.2-5.4) Hemoglobin 12.5 g/dL (12.0-16.0) Hematocrit 35.4 % (37-47) Mean Corpuscular Volume 88.9 fL (80-100) Mean Corpuscular Hemoglobin 31.4 pg (25-34) Mean Corpuscular Hemoglobin Concent 35.3 g/dl (32-36) Platelet Count 218 K/uL (130-400) Mean Platelet Volume 10.9 fL (7.4-10.4) Neutrophils (%) (Auto) 75.7 % Lymphocytes (%) (Auto) 10.9 % Monocytes (%) (Auto) 10.5 % Eosinophils (%) (Auto) 1.8 % Basophils (%) (Auto) 0.2 % Neutrophils # (Auto) 6.62 K/uL (1.4-6.5) Lymphocytes # (Auto) 0.95 K/uL (1.2-3.4) Monocytes # (Auto) 0.92 K/uL (0.11-0.59) Eosinophils # (Auto) 0.16 K/uL (0-0.5) Basophils # (Auto) 0.02 K/uL (0-0.2) RDW Standard Deviation 48.2 fL (36.4-46.3) RDW Coefficient of Variation 14.9 % (11.5-14.5) Immature Granulocyte % (Auto) 0.9 % Immature Granulocyte # (Auto) 0.08 K/uL (0.00-0.02) Anion Gap 4.0 mmol/L (3-11) Est Creatinine Clear Calc Drug Dose 41.2 ml/min Estimated GFR () 56.4 Estimated GFR (Non- 48.6 BUN/Creatinine Ratio 9.3 (10-20) Lactic Acid Level 1.6 mmol/L (0.4-2.0) Calcium Level 8.2 mg/dl (8.5-10.1) Total Bilirubin 0.5 mg/dl (0.2-1) Aspartate Amino Transf (AST/SGOT) 42 U/L (15-37) Alanine Aminotransferase (ALT/SGPT) 49 U/L (12-78) Alkaline Phosphatase 85 U/L (45-117) Ammonia 11.5 umol/L (11-32) Total Protein 6.3 gm/dl (6.4-8.2) Albumin 2.7 gm/dl (3.4-5.0) Globulin 3.6 gm/dl (2.5-4.0) Albumin/Globulin Ratio 0.8 (0.9-2) Thyroid Stimulating Hormone (TSH) < 0.005 uIu/ml (0.300-4.500) Medications Administered Medications (Trade) Dose Ordered Sig/Natalee Route Start Time Stop Time Status Last Admin Dose Admin Sodium Chloride 250 ml @ 999 mls/hr Q16M STAT IV 08/03/17 14:02 08/03/17 14:17 DC 08/03/17 14:44 999 MLS/HR ED Course Patient was seen and examined Vital signs including blood pressure were reviewed medications list was verified with patient Labs were obtained, and a saline lock was established. She was put on a monitor. Imaging was performed. The case was discussed with my supervising physician who personally evaluated the patient The patient was hydrated with 250 cc of normal saline The patient was reassessed and resting comfortably. We discussed her workup. She and her voiced understanding and were comfortable being discharged home. I reviewed discharge instructions the patient. They voiced understanding and had no further questions. Medical Decision differential diagnosis: Metabolic encephalopathy secondary to: Infectious etiology, metabolic etiology, neurologic etiology, dehydration This patient is an 82-year-old female that presents to the emergency department with complaints of hallucinations and insomnia over the last 2 days. On exam, she was confused about the year (saying it was 2016) otherwise she was neurologically intact. Her workup here is fairly unremarkable. her TSH was low. I notified the patient and the patient's of this. No leukocytosis. Urinalysis is clean. Imaging was also unremarkable. It is possible that insomnia is playing a role in her symptoms. The patient was instructed to take her insomnia medication as prescribed. She will continue her antibiotics. She will follow-up with her primary care physician early next week, and agrees to return with worsening symptoms This chart was completed in part utilizing [employer] Speech Voice Recognition software. Attempts were made to minimize the grammatical errors, random word insertions, pronoun errors and incomplete sentences. Any formal questions or concerns about the content, text or information contained within the body of this dictation should be directly addressed to the provider for clarification. Medication Reconcilliation Current Medication List: was personally reviewed by me Blood Pressure Screening Patient's blood pressure: Elevated blood pressure Blood pressure disposition: Did not require urgent referral Impression Primary Impression: Insomnia Additional Impression: Hallucinations Departure Information Dispostion Home / Self-Care Condition GOOD Referrals Dank Carrillo M.D. (PCP) Patient Instructions My [facility] Additional Instructions Yoav was seen in the emergency department for insomnia and hallucinations. Her TSH level was low. Imaging did not have any acute findings. It is possible that insomnia is playing a role in her symptoms. Please take lorazepam 0.5 mg at night for sleep Continue antibiotics as prescribed Please follow-up with your primary care physician in addition to your surveyor mine as soon as possible. Call Saturday morning for a follow-up appointment. Do not hesitate to return to the emergency department with any new, worsening or concerning symptoms It was a pleasure participating in your care today Problem Qualifiers
[2017-08-03 14:51] LABS: BASO % 0.2 %; BASO ABS # 0.02 K/uL (0-0.2); EOS % 1.8 %; EOS ABS # 0.16 K/uL (0-0.5); HEMATOCRIT 35.4 % (37-47); HEMOGLOBIN 12.5 g/dL (12.0-16.0); IG# 0.08 K/uL (0.00-0.02); LYMPH % 10.9 %; LYMPH ABS # 0.95 K/uL (1.2-3.4); MEAN CELL VOLUME 88.9 fL (80-100); MEAN CORPUSCULAR HEMOGLOBIN 31.4 pg (25-34); MEAN CORPUSCULAR HGB CONC 35.3 g/dl (32-36); MEAN PLATELET VOLUME 10.9 fL (7.4-10.4); MONO % 10.5 %; MONO ABS # 0.92 K/uL (0.11-0.59); NEUT % 75.7 %; NEUT ABS # 6.62 K/uL (1.4-6.5); PLATELET COUNT 218 K/uL (130-400); RED CELL DISTRIBUTION WIDTH CV 14.9 % (11.5-14.5); RED CELL DISTRIBUTION WIDTH SD 48.2 fL (36.4-46.3); WHITE BLOOD COUNT 8.75 K/uL (4.8-10.8)
[2017-08-03 15:11] LABS: ALBUMIN 2.7 gm/dl (3.4-5.0); ALT/SGPT 49 U/L (12-78); AST/SGOT 42 U/L (15-37); BLOOD UREA NITROGEN 10 mg/dl (7-18); CALCIUM 8.2 mg/dl (8.5-10.1); CARBON DIOXIDE 26 mmol/L (21-32); CREATININE 1.07 mg/dl (0.60-1.20); GLUCOSE 162 mg/dl (70-99); POTASSIUM 3.6 mmol/L (3.5-5.1); SODIUM 132 mmol/L (136-145)
--- NOTE | 2017-08-03 15:17 | DIAGNOSTIC IMAGING REPORT ---
HEAD CT NONCONTRAST CT DOSE: 1311.46 mGy.cm HISTORY: Altered mental status. TECHNIQUE: Multiaxial CT images of the head were performed without the use of intravenous contrast. Automated exposure control was utilized for this study. A dose lowering technique was utilized adhering to the principles of ALARA. Comparison: Head CT 03/02/2017. Findings: The paranasal sinuses and mastoid air cells are clear. Prior right frontal and left frontotemporal craniotomies are again noted. Patchy periventricular white matter hypodensity persists and favors microvascular ischemic change. The ventricles are normal in size. Small area of encephalomalacia within the left temporal lobe favors old postoperative change. This is also unchanged. There is no mass, hematoma, midline shift, or acute infarct. Mild motion artifact. Impression: No significant change compared to the prior study. No acute intracranial abnormality. Electronically signed by: Joey Archer M.D. 08/03/2017 3:15 PM Dictated Date/Time: 08/03/2017 3:12 PM
[2017-08-03 15:21] LABS: ALKALINE PHOSPHATASE 85 U/L (45-117); TOTAL PROTEIN 6.3 gm/dl (6.4-8.2)
[2017-08-03] MEDS ORDERED: OPTIRAY 320 IV PRN (15:45)
--- NOTE | 2017-08-03 17:56 | DIAGNOSTIC IMAGING REPORT ---
ABDOMEN AND PELVIS CT WITH IV CONTRAST CT DOSE: 599.99 mGy.cm HISTORY: Vomiting. Altered mental status. TECHNIQUE: Multiaxial CT images of the abdomen and pelvis were performed following the use of intravenous contrast. A dose lowering technique was utilized adhering to the principles of ALARA. COMPARISON STUDY: Abdomen and pelvis CT 04/13/2016. FINDINGS: Mild dependent changes seen at the lung bases. No pneumoperitoneum. No pneumatosis. L2 vertebral body sclerosis favors degenerative change. This is similar to the prior study. Cholecystectomy. Small amount of pneumobilia. No hepatic or splenic masses. The adrenal glands and pancreas are unremarkable. Multiple bilateral renal hypodense lesions. The majorities are subcentimeter in size and template two small to characterize. However, these likely represent a combination of cortical and peripelvic cysts. This is most pronounced on the left. There are few small bilateral renal calculi with the largest on the left measuring 4 mm. No hydronephrosis. The bladder, uterus, bilateral adnexa are unremarkable. No pelvic free fluid. No retroperitoneal lymphadenopathy. Tiny hiatus hernia. No definite bowel wall thickening or obstruction. Colonic diverticulosis. The appendix is normal in caliber. There is dense calcification either within or adjacent to the tip of the appendix. This remains unchanged. IMPRESSION: 1. No bowel wall thickening or obstruction. 2. Colonic diverticulosis. 3. No evidence for acute appendicitis. 4. Bilateral nephrolithiasis. No ureteral stones. No hydronephrosis. 5. Prior cholecystectomy. Small amount of pneumobilia is noted. 6. Additional stable findings as described above. Electronically signed by: Joey Archer M.D. 08/03/2017 5:54 PM Dictated Date/Time: 08/03/2017 5:43 PM
[2017-08-03 18:00] VITALS: BP 143/85; PULSE 87; O2SAT 94
== END 2017-08-03 18:40 | disposition home or self-care (01) ==
LOC: C.EDB 13:22 → C.EDC 18:40
DX: G47.00 Insomnia, unspecified (principal); R44.3 Hallucinations, unspecified; E11.9 Type 2 diabetes mellitus without complications; K21.9 Gastro-esophageal reflux disease without esophagitis; H40.9 Unspecified glaucoma; E78.00 Pure hypercholesterolemia, unspecified; E87.6 Hypokalemia; I21.4 Non-ST elevation (NSTEMI) myocardial infarction; Z79.899 Other long term (current) drug therapy

== ENCOUNTER → 2017-08-21 | Outpatient (CLI) | payer OTHER, BC ==
[~2017-08-21] MED LIST changes: -GLIM1TAB2 PO
--- NOTE | 2017-08-21 15:47 | MAMMOGRAPHY REPORT ---
BILATERAL DIGITAL SCREENING MAMMOGRAM WITH CAD: 08/21/2017 CLINICAL HISTORY: Routine screening. Patient has no complaints. TECHNIQUE: Current study was also evaluated with a Computer Aided Detection (CAD) system. Bilateral CC and MLO views were obtained. COMPARISON: Comparison is made to exams dated: 07/20/2015 mammogram, 08/09/2016 mammogram, 10/20/2013 ma mmogram, 08/28/2012 mammogram, 08/28/2011 mammogram, and 08/24/2010 mammogram - [facility] BREAST COMPOSITION: There are scattered areas of fibroglandular density in both breasts. FINDINGS: No suspicious masses, calcifications, or areas of architectural distortion are noted in ei ther breast. There has been no significant interval change compared to prior exams. Scattered bilate ral benign-appearing calcifications are not significantly changed. Note that the MLO views are signif icantly limited as the patient cannot tolerate proper positioning and had to be held for all views; n ote that the MLO views do not include pectoralis muscles or posterior tissue. IMPRESSION: ACR BI-RADS CATEGORY 2: BENIGN Limited exam as described above. Within the limitations of the exam, there is no mammographic eviden ce of malignancy. A 1 year screening mammogram is recommended. The patient will receive written noti fication of the results. Approximately 10% of breast cancers are not detected with mammography. A negative mammographic report should not delay biopsy if a clinically suggestive mass is present. Shahida Verdin M.D. ah/:08/21/2017 15:12:36 Attending Technologist: Mario HERNANDES(R)(M), [facility] Reinforcing Bar Setter: Uma Castillo, [facility] letter sent: Normal 1/2 BI-RADS Code: ACR BI-RADS Category 2: Benign
== END | disposition home or self-care (01) ==
LOC: C.MAMM 14:38
PROVIDERS: ATTEND Family Medicine
DX: Z12.31 Encounter for screening mammogram for malignant neoplasm of breast (principal)

== ENCOUNTER → 2017-11-06 | Outpatient (CLI) | payer OTHER, BC ==
--- NOTE | 2017-11-06 16:14 | DIAGNOSTIC IMAGING REPORT ---
CHEST 2 VIEWS ROUTINE CLINICAL HISTORY: SHORTNESS OF BREATH dyspnea COMPARISON STUDY: 08/03/2017 FINDINGS: Minimal chronic atelectatic change left lateral costophrenic angle. The lungs are clear. Diaphragms are smooth. Degenerative change thoracic spine. IMPRESSION: Chronic change. No acute process. The above report was generated using voice recognition software. It may contain grammatical, syntax or spelling errors. Electronically signed by: Lamberto Ontiveros M.D. 11/06/2017 4:13 PM Dictated Date/Time: 11/06/2017 4:11 PM
[2017-11-06 17:15] LABS: BASO % 0.1 %; BASO ABS # 0.02 K/uL (0-0.2); EOS % 0.8 %; EOS ABS # 0.12 K/uL (0-0.5); HEMATOCRIT 39.1 % (37-47); HEMOGLOBIN 12.9 g/dL (12.0-16.0); IG# 0.22 K/uL (0.00-0.02); LYMPH % 11.3 %; LYMPH ABS # 1.62 K/uL (1.2-3.4); MEAN CELL VOLUME 92.9 fL (80-100); MEAN CORPUSCULAR HEMOGLOBIN 30.6 pg (25-34); MEAN PLATELET VOLUME 12.1 fL (7.4-10.4); MONO % 7.8 %; MONO ABS # 1.11 K/uL (0.11-0.59); NEUT % 78.5 %; NEUT ABS # 11.22 K/uL (1.4-6.5); PLATELET COUNT 221 K/uL (130-400); RED CELL DISTRIBUTION WIDTH CV 16.1 % (11.5-14.5); RED CELL DISTRIBUTION WIDTH SD 54.8 fL (36.4-46.3); WHITE BLOOD COUNT 14.31 K/uL (4.8-10.8)
[2017-11-06 17:44] LABS: ALBUMIN 2.7 gm/dl (3.4-5.0); ALKALINE PHOSPHATASE 119 U/L (45-117); ALT/SGPT 90 U/L (12-78); AST/SGOT 57 U/L (15-37); BLOOD UREA NITROGEN 19 mg/dl (7-18); CALCIUM 8.7 mg/dl (8.5-10.1); CARBON DIOXIDE 26 mmol/L (21-32); CREATININE 1.18 mg/dl (0.60-1.20); GLUCOSE 289 mg/dl (70-99); POTASSIUM 3.8 mmol/L (3.5-5.1); SODIUM 140 mmol/L (136-145); TOTAL PROTEIN 6.9 gm/dl (6.4-8.2)
== END | disposition home or self-care (01) ==
LOC: C.RADPV 15:57
PROVIDERS: ATTEND Family Medicine
DX: R06.02 Shortness of breath (principal); E11.65 Type 2 diabetes mellitus with hyperglycemia; R60.9 Edema, unspecified

== ENCOUNTER → 2017-11-15 | Outpatient (CLI) | payer OTHER, BC | END | disposition home or self-care (01) | LOC: C.LABPVFM 15:05 | PROVIDERS: ATTEND Family Medicine | DX: E88.09 Other disorders of plasma-protein metabolism, not elsewhere classified (principal) ==

== ENCOUNTER → 2017-11-22 | Outpatient (CLI) | payer OTHER, BC ==
--- NOTE | 2017-11-22 09:08 | DIAGNOSTIC IMAGING REPORT ---
ABDOMEN COMPLETE (US) CLINICAL HISTORY: R10.819 Abdominal tenderness COMPARISON STUDY: Biliary ultrasound dated 11/06/2016, CT scan abdomen pelvis dated 08/03/2017 FINDINGS: There is no evidence of abdominal aortic aneurysm. The pancreas appears sonographically normal. The gallbladder surgically absent. No focal hepatic masses are visualized. There is no ductal dilatation. The common bile duct measures 4 mm. The right kidney measures 10.8 cm in length. The left kidney measures 12.4 cm in length. The 17 mm hypoechoic lesion arising from the right kidney likely representing a cyst. There is renal cortical thinning. There is left renal cortical thinning. Parapelvic left renal cysts are suspected. There is no hydronephrosis. The spleen measures 10.8 cm IMPRESSION: 1. Surgically absent gallbladder 2. No ductal dilatation 3. Bilateral renal cysts 4. No suspicious masses identified Electronically signed by: Lico Cabral M.D. 11/22/2017 9:07 AM Dictated Date/Time: 11/22/2017 9:04 AM
== END | disposition home or self-care (01) ==
LOC: C.ULTR 06:59
PROVIDERS: ATTEND Family Medicine
DX: R10.819 Abdominal tenderness, unspecified site (principal); N28.1 Cyst of kidney, acquired

== ENCOUNTER 2021-03-23 16:18 | Inpatient (IN) ==
--- NOTE | 2021-03-23 16:21 | Emergency Department Note ---
Impression & Plan Cognitive and behavioral changes, Ambulatory dysfunction, Generalized weakness ED Provider Note NAME: [id number] AGE: 85 SEX: F ARRIVES VIA: Ambulance INFORMANT: Patient ED PROVIDER(S): Moshe Newsome MD CHIEF COMPLAINT: Weakness, abdominal pain. 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 The patient is a poor historian. Per EMS the is in route to come to the hospital. did arrive to the bedside and reports that the patient has not been sleeping for the past 3 days which he feels is due to abdominal pain because she complained about this today and he was worried she could have a kidney stone. He also reports she has been more confused than her usual which she attributes to the lack of sleep and has happened before. He reports that her baseline is ambulating without assistance with a walker but over the past several days as needed significant assistance. He denies any fevers, chills, cough, congestion, vomiting. On arrival the patient is fatigued appearing and chronically ill, uncomfortable, afebrile stable vital signs. She has generalized abdominal tenderness without guarding or rebound. She also exhibits discomfort with any stimulus such as her blood pressure cuff inflating. She is alert to self and place but is mildly confused and has poor attention. She has 2/5 strength in bilateral lower extremities and 4/5 strength in bilateral upper extremities. Chest x-ray negative for acute cardiopulmonary process. CT of the head negative for acute process though within limitations of motion artifact. CBC did not result and repeat draw is pending. Chemistry without metabolic acidosis. Initial glucose 173 however upon repeat during the patient's ED observation was 69 and so she was ordered for an amp of D50 given her drowsiness following Ativan to obtain diagnostic CT of the abdomen pelvis. Phosphorus 2 electrodes otherwise unremarkable. LFTs mildly elevated but similar to prior. Troponin negative/undetectable. Lipase is not elevated. The patient was given 0.25 mg of IV Ativan for anxiolysis to help obtain diagnostic CT. CT of the a bdomen pelvis was performed per preliminary stat read report and no acute findings are noted. There is question of a lucency of the anterior aspect of the T9 vertebral body that could be consistent with a nondisplaced fracture which could be acute to subacute. Unclear significance of this finding as the patient's reports that she has not had any falls. Fortunately, in the ambulatory trial was attempted with 2 person assist but the patient was unable to follow commands and or have the strength to ambulate. As, given the patient's generalized weakness and confusion which is a departure from her baseline the patient's did agree with plan for admission for further management. A straight cath urine was ordered and is pending. Case was discussed with Dr. Persaud, [facility] hospitalist, who will evaluate the patient for admission. Triage Nursing notes reviewed and agree them. prior medical records reviewed Vital Signs: reviewed and remarkable for no significant abnormalities Differential diagnosis: Appendicitis, ovarian cyst, ovarian torsion, ectopic , TOA, PID, infections, diverticulitis, UTI, obstruction, mesenteric ischemia, aortic pathology, inflammatory bowel disease, renal colic, PUD, pancreatitis, biliary pathology, hernia, volvulus, constipation, as well as other pathologies. ER treatment provided: See below. Diagnostics interpreted by me: ECG: Cardiac Monitoring: An order for continuous cardiac monitoring was placed and demonstrated normal sinus rhythm, 95 bpm, no ectopy. Laboratory studies: see below Imaging studies: See below STATRAD Preliminary Findings Only See Final Report For Complete Findings CT ABDOMEN & PELVIS With Contrast: Comparison is made to CT abdomen/pelvis on 08/03/2017. Lucency in the anterior aspect of the T9 vertebral body is concerning for a nondisplaced fracture. This may be acute or subacute and is new compared to prior exam. Lower lung atelectasis. Evaluation of the stomach is limited by underdistention. Prior cholecystectomy. Pneumobilia. Left greater than right peripelvic cysts. Small hypodense lesions in the kidneys are nonspecific. Evaluation is limited by artifact. These may represent cysts but could be further evaluated with ultrasound if clinically indicated. Small nonobstructing inferior left renal stone. No ureteral stone. Phleboliths in the pelvis. Diverticulosis without evidence of diverticulitis. No small bowel obstruction. Normal appendix. Atherosclerotic changes of the vasculature. No aortic aneurysm or dissection. Atrophy of the pancreas. Radiologist: Alessandra Reyes M.D. Study ready at 21:28 and initial results transmitted at 21:44 Consultation(s): Case was discussed with Dr. Persaud, [facility] hospitalist, who will evaluate the patient for admission. 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 The patient is a poor historian. Per EMS the is in route to come to the hospital. did arrive to the bedside and reports that the patient has not been sleeping for the past 3 days which he feels is due to abdominal pain because she complained about this today and he was worried she could have a kidney stone. He also reports she has been more confused than her usual which she attributes to the lack of sleep and has happened before. He reports that her baseline is ambulating without assistance with a walker but over the past several days as needed significant assistance. He denies any fevers, chills, cough, congestion, vomiting. ROS: See above HPI for pertinent positives & negatives. A total of 10 systems reviewed and were otherwise negative. PAST MEDICAL HISTORY: see Below PAST SURGICAL HISTORY: see Below FAMILY HISTORY:See Below SOCIAL HISTORY: see Below HOME MEDICATIONS: see Below ALLERGIES: see Below VITALS: see Below PHYSICAL EXAMINATION: GENERAL: Awake, alert, chronically ill-appearing, in no distress, BMI 34.2. HENT: Large fungating mass of the central frontal scalp which appears consistent per records. There is a scant amount of dried blood around the base of this without active hemorrhage. Oropharynx with dry mucous membranes and otherwise unremarkable. EYES: Normal conjunctiva. Sclera non-icteric. NECK: Supple. No nuchal rigidity. FROM. No JVD. RESPIRATORY: Clear to auscultation. CARDIAC: Regular rate, normal rhythm. Extremities warm and well perfused. Pulses equal. ABDOMEN: Soft, non-distended. Generalized abdominal tenderness. No rebound or guarding. No masses. RECTAL: Deferred. MUSCULOSKELETAL: Chest examination reveals no tenderness. The back is symmetrical on inspection without obvious abnormality. There is no CVA tenderness to palpation. No joint edema. LOWER EXTREMITIES: Calves are equal size bilaterally and non-tender. 1+ BLE edema. No discoloration. NEURO: Alert to self and place. No focal sensory or motor deficits noted. Generalized weakness with 2/5 strength of bilateral lower extremities and 4/5 strength of bilateral upper extremities. SKIN: No rash or jaundice noted. 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 Type 2 diabetes mellitus, with long-term current use of insulin Urinary incontinence Vitamin D insufficiency Surgical History H/O craniotomy H/O rectal polypectomy History of laparoscopic cholecystectomy History of salpingo-oophorectomy Hx of LASIK S/P cataract surgery S/P cholecystectomy Family History Sister Breast cancer Mother Bladder cancer Skin cancer Father Myocardial infarction Denies family history of Ovarian cancer Prostate cancer Colorectal cancer Social History Smoking Status: Never smoker Second Hand Exposure: No; Hx Alcohol Use: No Hx Substance Use: No Preferred Language: Khmer Visual Impairment: Blindness Hearing Ability: Hard of Hearing marital status: Current Living Situation: Spouse and Family current occupational status: retired Feels Safe at Home: Yes caffeine: No Dental Care, Regularly: Yes Physical Activity Frequency: Does not Exercise Seatbelt Use: always Sunscreen Use: Yes Allergies Allergies Allergy/AdvReac Type Severity Reaction Status Date / Time amoxicillin Allergy Intermediate Swelling Verified 03/23/21 17:21 of Lips Cipro Allergy Intermediate RASH, Verified 08/03/17 14:29 NAUSEA ciprofloxacin Allergy Intermediate RASH, Verified 03/23/21 17:21 NAUSEA Sulfa (Sulfonamide Allergy Intermediate RASH Verified 03/23/21 17:21 Antibiotics) biotin Allergy Unknown UNKN Verified 03/23/21 17:21 cefepime AdvReac Severe HALLUCINATI Verified 03/23/21 17:21 ONS diphenhydramine AdvReac Severe HYPER Verified 03/23/21 17:21 INSOMNIA mirtazapine AdvReac Intermediate altered Verified 03/23/21 17:21 mental status changes nitrofurantoin AdvReac Intermediate CHEST Verified 03/23/21 17:21 PAIN, CONFUSION oxycodone AdvReac Mild N/V Verified 03/23/21 17:21 Home Meds Home Medications Medication Instructions Recorded Confirmed Bifidobacterium infantis 4 mg 4 mg PO DAILY 08/08/18 03/23/21 capsule (Align) acetaminophen 325 mg capsule 325 mg PO Q6H PRN 08/08/18 03/23/21 docusate sodium 100 mg capsule 100 mg PO DAILY 08/08/18 03/23/21 latanoprost 0.005 % eye drops 1 drops OP QPM 08/08/18 03/23/21 multivitamin 1 tab PO DAILY 03/23/21 03/23/21 Previous Rx's Medication Instructions Recorded betamethasone dipropionate 0.05 % 1 appln TOP BID #60 ml 10/07/18 lotion menthol 5 % topical gel (Biofreeze 5 % TOP BID PRN #30 gm 01/06/19 (menthol)) polyethylene glycol 3350 17 17 gm PO DAILY PRN #510 gm 01/06/19 gram/dose oral powder (Miralax) propylene glycol 0.6 % eye drops 1 drops OP QID PRN #20 ml 01/06/19 (Systane Complete) diaper,brief,adult,disposable #4 bag 07/29/19 (Fitted Briefs X-Large) disposable gloves (Nitrile Exam #1,000 ea 07/29/19 Gloves) incontinence pad, liner, disp #40 ea 07/29/19 (Underpads Regular) levothyroxine 125 mcg tablet 125 mcg PO DAILY #90 tab 04/19/20 glucagon 3 mg/actuation nasal 3 mg INTRANASAL ONCE PRN #2 ea 05/16/20 spray (Baqsimi) chlorthalidone 25 mg tablet 12.5 mg PO DAILY 90 Days #45 tab 05/30/20 furosemide 20 mg tablet 20 mg PO Q OTHER DAY PRN #15 tab 06/24/20 lancets 30 gauge (OneTouch Delica #200 ea 07/11/20 Lancets) insulin regular hum U-500 conc See Rx Instructions SQ .COMPLEX #3 10/21/20 (Humulin R U-500 (Conc) Insulin box Kwikpen) alendronate 70 mg tablet See Rx Instructions .ROUTE 11/15/20 .COMPLEX #13 tab hydrocortisone 10 mg tablet 10 mg PO .COMPLEX 90 Days #360 tab 12/19/20 MDD 4 tabs daily blood sugar diagnostic (OneTouch #200 ea 12/27/20 Verio test strips) omeprazole 20 mg capsule,delayed See Rx Instructions .ROUTE 12/27/20 release .COMPLEX #90 capsule calcitriol 0.25 mcg capsule 0.25 mcg PO DAILY #90 cap 01/12/21 cefdinir 300 mg capsule 300 mg PO DAILY #90 cap 01/16/21 desmopressin 0.1 mg tablet 0.1 mg PO DAILY #90 tab 01/25/21 BD Ultra-Fine Short Pen Needle 31 #200 ea NS 02/13/21 gauge x 5/16" (pen needle, diabetic) potassium chloride 20 mEq 20 meq PO BID #180 tab 03/20/21 tablet,extended release(part/cryst) mirabegron 50 mg tablet,extended 50 mg PO DAILY #90 tab 03/21/21 release 24 hr (Myrbetriq) Results & Data (ED) Vital Signs Vital Signs - 24 hr 03/23/21 16:26 03/23/21 16:30 03/23/21 16:40 Temperature Temperature Source Pulse Rate 104 H 103 H 107 H Pulse Rate [Right Finger] Pulse Rate from SpO2 Sensor 105 H 103 H 107 H Pulse Rhythm Pulse Strength Respiratory Rate 21 22 22 Blood Pressure Blood Pressure [Right Arm] Blood Pressure Mean Blood Pressure Mean [Right Arm] Pulse Oximetry 94 93 94 Oxygen Delivery Method Oxygen Flow Rate Sepsis Recent Fever Within 48 Hours Sepsis New/Unexplained Change in Mental Status Sepsis Action Taken by Nursing 03/23/21 16:50 03/23/21 17:00 03/23/21 17:10 Temperature Temperature Source Pulse Rate 104 H 103 H 107 H Pulse Rate [Right Finger] Pulse Rate from SpO2 Sensor 104 H Pulse Rhythm Pulse Strength Respiratory Rate 21 24 20 Blood Pressure Blood Pressure [Right Arm] Blood Pressure Mean Blood Pressure Mean [Right Arm] Pulse Oximetry 95 Oxygen Delivery Method Oxygen Flow Rate Sepsis Recent Fever Within 48 Hours Sepsis New/Unexplained Change in Mental Status Sepsis Action Taken by Nursing 03/23/21 17:20 03/23/21 17:30 03/23/21 17:39 Temperature 36.8 C Temperature Source Oral Pulse Rate 107 H 109 H 103 H Pulse Rate [Right Finger] Pulse Rate from SpO2 Sensor Pulse Rhythm Regular Pulse Strength Normal Respiratory Rate 21 23 26 H Blood Pressure 177/87 H Blood Pressure [Right Arm] Blood Pressure Mean 117 Blood Pressure Mean [Right Arm] Pulse Oximetry 96 Oxygen Delivery Method Room Air Oxygen Flow Rate Sepsis Recent Fever Within 48 Hours No Sepsis New/Unexplained Change in Mental Status Yes Sepsis Action Taken by Nursing Physician Notified 03/23/21 17:40 03/23/21 17:50 03/23/21 18:30 Temperature Temperature Source Pulse Rate 105 H 111 H Pulse Rate [Right Finger] Pulse Rate from SpO2 Sensor 107 H Pulse Rhythm Pulse Strength Respiratory Rate 23 22 Blood Pressure Blood Pressure [Right Arm] Blood Pressure Mean Blood Pressure Mean [Right Arm] Pulse Oximetry 92 95 Oxygen Delivery Method Room Air Oxygen Flow Rate Sepsis Recent Fever Within 48 Hours Sepsis New/Unexplained Change in Mental Status Sepsis Action Taken by Nursing 03/23/21 18:40 03/23/21 18:50 03/23/21 19:00 Temperature Temperature Source Pulse Rate 106 H 105 H 104 H Pulse Rate [Right Finger] Pulse Rate from SpO2 Sensor 107 H 105 H 104 H Pulse Rhythm Pulse Strength Respiratory Rate 20 19 21 Blood Pressure 168/82 H Blood Pressure [Right Arm] Blood Pressure Mean 110 Blood Pressure Mean [Right Arm] Pulse Oximetry 94 95 90 Oxygen Delivery Method Oxygen Flow Rate Sepsis Recent Fever Within 48 Hours Sepsis New/Unexplained Change in Mental Status Sepsis Action Taken by Nursing 03/23/21 19:10 03/23/21 19:20 03/23/21 19:30 Temperature Temperature Source Pulse Rate 105 H 107 H 110 H Pulse Rate [Right Finger] Pulse Rate from SpO2 Sensor 105 H Pulse Rhythm Pulse Strength Respiratory Rate 20 20 20 Blood Pressure Blood Pressure [Right Arm] Blood Pressure Mean Blood Pressure Mean [Right Arm] Pulse Oximetry 91 Oxygen Delivery Method Oxygen Flow Rate Sepsis Recent Fever Within 48 Hours Sepsis New/Unexplained Change in Mental Status Sepsis Action Taken by Nursing 03/23/21 20:05 03/23/21 20:10 03/23/21 20:20 Temperature Temperature Source Pulse Rate 110 H 108 H 105 H Pulse Rate [Right Finger] Pulse Rate from SpO2 Sensor 108 H 104 H Pulse Rhythm Pulse Strength Respiratory Rate 24 23 Blood Pressure Blood Pressure [Right Arm] Blood Pressure Mean Blood Pressure Mean [Right Arm] Pulse Oximetry 90 88 L Oxygen Delivery Method Oxygen Flow Rate Sepsis Recent Fever Within 48 Hours Sepsis New/Unexplained Change in Mental Status Sepsis Action Taken by Nursing 03/23/21 20:26 03/23/21 21:50 03/23/21 23:00 Temperature Temperature Source Pulse Rate Pulse Rate [Right Finger] 102 H 95 H Pulse Rate from SpO2 Sensor Pulse Rhythm Pulse Strength Respiratory Rate 19 16 Blood Pressure Blood Pressure [Right Arm] 134/70 172/82 H Blood Pressure Mean Blood Pressure Mean [Right Arm] 91 112 Pulse Oximetry 94 96 96 Oxygen Delivery Method Nasal Cannula Room Air Room Air Oxygen Flow Rate 2 Sepsis Recent Fever Within 48 Hours Sepsis New/Unexplained Change in Mental Status Sepsis Action Taken by Nursing Laboratory Data Attestation: I reviewed the patient's lab results. Result diagrams: 03/23/21 18:25 03/23/21 21:21 Lab Results 03/23/21 03/23/21 03/23/21 Range/Units 18:25 18:25 18:25 WBC 14.83 H (4.8-10.8) K/uL RBC 4.02 L (4.2-5.4) M/uL Hgb 13.6 (12.0-16.0) g/dL Hct 40.4 (37-47) % MCV 100.5 H (80-100) fL MCH 33.8 (25-34) pg MCHC 33.7 (32-36) g/dL RDW Std Deviation 59.0 H (36.4-46.3) fL RDW Coeff of Fritz 16.1 H (11.5-14.5) % Plt Count 236 (130-400) K/uL MPV 13.1 H (7.4-10.4) fL Absolute Nucleated RBC 0.05 H (0-0) K/uL Nucleated RBC % (auto) 0.3 % Neutrophils % (Manual) 85.2 % Lymphocytes % (Manual) 9.6 % Monocytes % (Manual) 4.3 % Basophils % (Manual) 0.9 % Neutrophils # (Manual) 12.64 H (1.4-6.5) K/uL Total Absolute Neuts 12.64 H (1.4-6.5) K/uL Lymphocytes # (Manual) 1.42 (1.2-3.4) K/uL Total Abs Lymphocytes 1.42 (1.2-3.4) K/uL Monocytes # (Manual) 0.64 H (0.11-0.59) K/uL Basophils # (Manual) 0.13 (0-0.2) K/uL RBC Morphology Unremarkable PT 10.2 (9.0-12.0) Seconds INR 1.0 (0.9-1.1) Sodium 137 (136-145) mmol/L Potassium (3.5-5.1) mmol/L Chloride 106 (98-107) mmol/L Carbon Dioxide 27 (21-32) mmol/L Anion Gap 4.0 (3-11) BUN 23 H (7-18) mg/dl Creatinine 1.11 (0.6-1.2) mg/dl Est Cr Clr Drug Dosing 48.7 ml/min Est GFR ( Amer) 52.8 ml/min Est GFR (Non-Af Amer) 45.6 ml/min BUN/Creatinine Ratio 20.6 H (10-20) Glucose 173 H (70-99) mg/dl POC Glucose (70-99) mg/dl Calcium 9.4 (8.5-10.1) mg/dl Phosphorus 2.0 L (2.5-4.9) mg/dl Magnesium (1.8-2.4) mg/dl Total Bilirubin 0.8 (0.2-1) mg/dl AST (15-37) U/L ALT 116 H (12-78) U/L Alkaline Phosphatase 189 H (45-117) U/L Troponin I < 0.015 (0-0.045) ng/ml Total Protein 7.4 (6.4-8.2) gm/dl Albumin 2.5 L (3.4-5.0) gm/dl Globulin 4.9 H (2.5-4.0) gm/dl Albumin/Globulin Ratio 0.5 L (0.9-2) Lipase 73 (73-393) U/L SARS-CoV-2, RNA, NAAT (NEGATIVE) 03/23/21 03/23/21 03/23/21 Range/Units 21:21 21:42 22:03 WBC (4.8-10.8) K/uL RBC (4.2-5.4) M/uL Hgb (12.0-16.0) g/dL Hct (37-47) % MCV (80-100) fL MCH (25-34) pg MCHC (32-36) g/dL RDW Std Deviation (36.4-46.3) fL RDW Coeff of Fritz (11.5-14.5) % Plt Count (130-400) K/uL MPV (7.4-10.4) fL Absolute Nucleated RBC (0-0) K/uL Nucleated RBC % (auto) % Neutrophils % (Manual) % Lymphocytes % (Manual) % Monocytes % (Manual) % Basophils % (Manual) % Neutrophils # (Manual) (1.4-6.5) K/uL Total Absolute Neuts (1.4-6.5) K/uL Lymphocytes # (Manual) (1.2-3.4) K/uL Total Abs Lymphocytes (1.2-3.4) K/uL Monocytes # (Manual) (0.11-0.59) K/uL Basophils # (Manual) (0-0.2) K/uL RBC Morphology PT (9.0-12.0) Seconds INR (0.9-1.1) Sodium (136-145) mmol/L Potassium 3.9 (3.5-5.1) mmol/L Chloride (98-107) mmol/L Carbon Dioxide (21-32) mmol/L Anion Gap (3-11) BUN (7-18) mg/dl Creatinine (0.6-1.2) mg/dl Est Cr Clr Drug Dosing ml/min Est GFR ( Amer) ml/min Est GFR (Non-Af Amer) ml/min BUN/Creatinine Ratio (10-20) Glucose (70-99) mg/dl POC Glucose 69 L* (70-99) mg/dl Calcium (8.5-10.1) mg/dl Phosphorus (2.5-4.9) mg/dl Magnesium 2.1 (1.8-2.4) mg/dl Total Bilirubin (0.2-1) mg/dl AST 75 H (15-37) U/L ALT (12-78) U/L Alkaline Phosphatase (45-117) U/L Troponin I (0-0.045) ng/ml Total Protein (6.4-8.2) gm/dl Albumin (3.4-5.0) gm/dl Globulin (2.5-4.0) gm/dl Albumin/Globulin Ratio (0.9-2) Lipase (73-393) U/L SARS-CoV-2, RNA, NAAT NEGATIVE (NEGATIVE) 03/23/21 Range/Units 22:58 WBC (4.8-10.8) K/uL RBC (4.2-5.4) M/uL Hgb (12.0-16.0) g/dL Hct (37-47) % MCV (80-100) fL MCH (25-34) pg MCHC (32-36) g/dL RDW Std Deviation (36.4-46.3) fL RDW Coeff of Fritz (11.5-14.5) % Plt Count (130-400) K/uL MPV (7.4-10.4) fL Absolute Nucleated RBC (0-0) K/uL Nucleated RBC % (auto) % Neutrophils % (Manual) % Lymphocytes % (Manual) % Monocytes % (Manual) % Basophils % (Manual) % Neutrophils # (Manual) (1.4-6.5) K/uL Total Absolute Neuts (1.4-6.5) K/uL Lymphocytes # (Manual) (1.2-3.4) K/uL Total Abs Lymphocytes (1.2-3.4) K/uL Monocytes # (Manual) (0.11-0.59) K/uL Basophils # (Manual) (0-0.2) K/uL RBC Morphology PT (9.0-12.0) Seconds INR (0.9-1.1) Sodium (136-145) mmol/L Potassium (3.5-5.1) mmol/L Chloride (98-107) mmol/L Carbon Dioxide (21-32) mmol/L Anion Gap (3-11) BUN (7-18) mg/dl Creatinine (0.6-1.2) mg/dl Est Cr Clr Drug Dosing ml/min Est GFR ( Amer) ml/min Est GFR (Non-Af Amer) ml/min BUN/Creatinine Ratio (10-20) Glucose (70-99) mg/dl POC Glucose 129 H (70-99) mg/dl Calcium (8.5-10.1) mg/dl Phosphorus (2.5-4.9) mg/dl Magnesium (1.8-2.4) mg/dl Total Bilirubin (0.2-1) mg/dl AST (15-37) U/L ALT (12-78) U/L Alkaline Phosphatase (45-117) U/L Troponin I (0-0.045) ng/ml Total Protein (6.4-8.2) gm/dl Albumin (3.4-5.0) gm/dl Globulin (2.5-4.0) gm/dl Albumin/Globulin Ratio (0.9-2) Lipase (73-393) U/L SARS-CoV-2, RNA, NAAT (NEGATIVE) Administered Medications Discontinued Medications Dextrose (Dextrose 50% 50 Ml Syringe) 50 ml IV NOW ONE Stop: 03/23/21 21:44 Last Admin: 03/23/21 21:50 Dose: Not Given Documented by: [id number] Dextrose (Dextrose 50% 50 Ml Syringe) Confirm Administered Dose 50 ml IV .STK- MED ONE Stop: 03/23/21 21:45 Last Admin: 03/23/21 21:50 Dose: 50 ml Documented by: [id number] Hydrocortisone Sodium Succinate (Hydrocortisone Sod Succinate 100 Mg/2 Ml Vial) 100 mg IV NOW STA Stop: 03/23/21 23:28 Last Admin: 03/23/21 23:58 Dose: 100 mg Documented by: [id number] Lorazepam (Ativan) 0.25 mg in 0.5 mls @ 0.5 mls/min IV NOW STA Stop: 03/23/21 19:27 Last Admin: 03/23/21 20:09 Dose: 0.5 mls/min Documented by: [id number] Acetaminophen (Ofirmev) 1,000 mg in 100 mls @ 400 mls/hr IV NOW STA Stop: 03/23/21 19:42 Last Infusion: 03/23/21 20:24 Dose: 0 mls/hr Documented by: [id number] Admin: 03/23/21 20:09 Dose: 400 mls/hr Documented by: [id number] Ioversol (Optiray 320 100ml) 95 ml IV ONCE ONE Stop: 03/23/21 21:15 Last Admin: 03/23/21 21:14 Dose: 95 ml Documented by: [id number] Imaging Data Radiologist's Impression: Head CT 03/23/21 16:30 CT OF THE HEAD WITHOUT CONTRAST CLINICAL HISTORY: Altered mental status. COMPARISON STUDY: MRI of the brain March 03, 2017. Head CT August 03, 2017. CT DOSE: 1305.31 mGy.cm TECHNIQUE: Helical axial images of the head were obtained without IV contrast. Automated exposure control was utilized for the study. A dose lowering technique was utilized adhering to the principles of ALARA. FINDINGS: This exam is markedly complex by motion artifact. No acute intracranial hemorrhage, midline shift or mass effect is present. Ventricular system is stable. Basal cisterns are patent. Bifrontal craniotomies are noted. Note is made of a 4.2 x 2.3 cm mass-like abnormality overlying the right frontal craniotomy. This was not present on head CT of March 03, 2017. No calvarial fractures are identified although sensitivity is diminished on this examination. IMPRESSION: 1. Study markedly compromised by motion artifact. No acute intracranial findings identified. 2. 4.2 x 2.3 cm mass-like abnormality overlying the right frontal craniotomy. This is suboptimally assessed on this exam given motion artifact. This is indeterminate and recurrent meningioma with extracranial extension cannot be excluded. Findings discussed with Dr. Newsome at time of dictation. ACT 112: Negative or not required by law. Electronically signed by: Jhoan Mena M.D. 03/23/2021 6:28 PM Chest X-Ray 03/23/21 16:31 XR chest 1V portable CLINICAL HISTORY: Altered mental status. COMPARISON STUDY: Chest radiograph June 24, 2020. FINDINGS: Lung volumes are mildly diminished. Mild elevation of the right hemidi aphragm is noted. There is cardiomegaly without evidence for pulmonary edema. No consolidation is identified to suggest pneumonia. Linear left basilar opacities favor atelectasis. IMPRESSION: No acute cardiopulmonary findings. ACT 112: Negative or not required by law. Electronically signed by: Jhoan Mena M.D. 03/23/2021 5:29 PM Discharge Plan Visit Data Chief Complaint: Confusion Stated Complaint: AMS, R FLANK PAIN ED Provider: Moshe Newsome Discharge Problem: Cognitive and behavioral changes, Ambulatory dysfunction, Generalized weakness Forms Stand Alone Forms: [facility] meebee Prescriptions Prescriptions: No Action latanoprost 0.005 % drops 1 drops OP QPM RF: 0 acetaminophen 325 mg capsule 325 mg PO Q6H PRN (Reason: Pain) RF: 0 Align 4 mg capsule 4 mg PO DAILY RF: 0 docusate sodium 100 mg capsule 100 mg PO DAILY RF: 0 betamethasone dipropionate 0.05 % lotion 1 appln TOP BID Qty: 60 RF: 1 (DME) Fitted Briefs X-Large Misc See Rx Instructions .ROUTE .MEDSUPPLY Qty: 4 RF: 11 (DME) disposable gloves [Nitrile Exam Gloves] Misc See Rx Instructions .ROUTE .MEDSUPPLY Qty: 1,000 RF: 11 (DME) Underpads Regular Pad See Rx Instructions .ROUTE .MEDSUPPLY Qty: 40 RF: 11 levothyroxine 125 mcg tablet 125 mcg PO DAILY Qty: 90 RF: 3 Baqsimi 3 mg/actuation spray,non-aerosol 3 mg intranasal ONCE PRN (Reason: severe low blood sugar) Qty: 2 RF: 3 chlorthalidone 25 mg tablet 12.5 mg PO DAILY 90 Days Qty: 45 RF: 3 (DME) lancets [OneTouch Delica Lancets] 30 gauge misc See Dose Instructions .ROUTE .MEDSUPPLY Qty: 200 RF: 5 Humulin R U-500 (Conc) Kwikpen 500 unit/mL (3 mL) insulin pen See Rx Instructions SQ .COMPLEX Qty: 3 RF: 4 alendronate 70 mg tablet See Rx Instructions .ROUTE .COMPLEX Qty: 13 RF: 3 hydrocortisone 10 mg tablet 10 mg PO .COMPLEX MDD 4 tabs daily 90 Days Qty: 360 RF: 3 omeprazole 20 mg capsule,delayed release(DR/EC) See Rx Instructions .ROUTE .COMPLEX Qty: 90 RF: 3 (DME) OneTouch Verio test strips Strip See Dose Instructions .ROUTE .MEDSUPPLY Qty: 200 RF: 3 calcitriol 0.25 mcg capsule 0.25 mcg PO DAILY Qty: 90 RF: 3 cefdinir 300 mg capsule 300 mg PO DAILY Qty: 90 RF: 1 desmopressin 0.1 mg tablet 0.1 mg PO DAILY Qty: 90 RF: 3 (DME) pen needle, diabetic [BD Ultra-Fine Short Pen Needle] 31 gauge x 5/16" needle See Rx Instructions .ROUTE .MEDSUPPLY Qty: 200 RF: 3 potassium chloride 20 mEq tablet,ER particles/crystals 20 meq PO BID Qty: 180 RF: 1 Myrbetriq 50 mg tablet extended release 24 hr 50 mg PO DAILY Qty: 90 RF: 3 furosemide 20 mg tablet 20 mg PO Q OTHER DAY PRN (Reason: edema) Qty: 15 RF: 1 Biofreeze (menthol) 5 % gel 5 % TOP BID PRN (Reason: pain) Qty: 30 RF: 0 polyethylene glycol 3350 [Miralax] 17 gram/dose powder 17 gm PO DAILY PRN (Reason: constipation) Qty: 510 RF: 0 Systane Complete 0.6 % drops 1 drops OP QID PRN (Reason: dry eye(s)) Qty: 20 RF: 0 multivitamin Tablet 1 tab PO DAILY RF: 0 Referrals Referrals: Jocelyn Bowser MD [Primary Care Provider] -
--- NOTE | 2021-03-23 17:31 | XRay Report ---
XR chest 1V portable CLINICAL HISTORY: Altered mental status. COMPARISON STUDY: Chest radiograph June 24, 2020. FINDINGS: Lung volumes are mildly diminished. Mild elevation of the right hemidiaphragm is noted. The re is cardiomegaly without evidence for pulmonary edema. No consolidation is identified to suggest pn eumonia. Linear left basilar opacities favor atelectasis. IMPRESSION: No acute cardiopulmonary findings. ACT 112: Negative or not required by law. Electronically signed by: Jhoan Mena M.D. 03/23/2021 5:29 PM
--- NOTE | 2021-03-23 18:29 | CT Scan Report ---
CT OF THE HEAD WITHOUT CONTRAST CLINICAL HISTORY: Altered mental status. COMPARISON STUDY: MRI of the brain March 03, 2017. Head CT August 03, 2017. CT DOSE: 1305.31 mGy.cm TECHNIQUE: Helical axial images of the head were obtained without IV contrast. Automated exposure con trol was utilized for the study. A dose lowering technique was utilized adhering to the principles o f ALARA. FINDINGS: This exam is markedly complex by motion artifact. No acute intracranial hemorrhage, midline shift or mass effect is present. Ventricular system is stable. Basal cisterns are patent. Bifrontal craniotomies are noted. Note is made of a 4.2 x 2.3 cm mass-like abnormality overlying the right fron noy craniotomy. This was not present on head CT of March 03, 2017. No calvarial fractures are iden tified although sensitivity is diminished on this examination. IMPRESSION: 1. Study markedly compromised by motion artifact. No acute intracranial findings identified. 2. 4.2 x 2.3 cm mass-like abnormality overlying the right frontal craniotomy. This is suboptimally as sessed on this exam given motion artifact. This is indeterminate and recurrent meningioma with extrac ranial extension cannot be excluded. Findings discussed with Dr. Newsome at time of dictation. ACT 112: Negative or not required by law. Electronically signed by: Jhoan Mena M.D. 03/23/2021 6:28 PM
[2021-03-23 18:55] LABS: Prothrombin Time 10.2 Seconds (9.0-12.0)
[2021-03-23 19:05] LABS: Alanine Aminotransferase 116 U/L (12-78); Albumin Globulin Ratio 0.5 (0.9-2); Albumin Level 2.5 gm/dl (3.4-5.0); Alkaline Phosphatase 189 U/L (45-117); BUN Creatinine Ratio 20.6 (10-20); Bilirubin,Total 0.8 mg/dl (0.2-1); Blood Urea Nitrogen 23 mg/dl (7-18); Calcium 9.4 mg/dl (8.5-10.1); Carbon Dioxide 27 mmol/L (21-32); Chloride 106 mmol/L (98-107); Creatinine Clr Calc Pharmacy 48.7 ml/min; Est GFR (African American) 52.8 ml/min; Est GFR (Non-African American) 45.6 ml/min; Globulin 4.9 gm/dl (2.5-4.0); Glucose 173 mg/dl (70-99); Lipase 73 U/L (73-393); Sodium 137 mmol/L (136-145); Total Protein 7.4 gm/dl (6.4-8.2); Troponin I < 0.015 ng/ml (0-0.045)
[2021-03-23] MEDS ORDERED: LORazepam 0.25 MG/0.5 ML VIAL IV STA (19:26)
[2021-03-23] MEDS ORDERED: ACETAMINOPHEN 1,000 MG/100 ML VIAL IV STA (19:28)
[2021-03-23] MEDS ORDERED: OPTIRAY 320 100ml IV ONE (21:14)
[2021-03-23] MEDS ORDERED: DEXTROSE 50% 50 ML SYRINGE IV ONE ×2 (21:43→21:44)
[2021-03-23 21:46] LABS: Potassium 3.9 mmol/L (3.5-5.1)
[2021-03-23 21:51] LABS: Aspartate Aminotransferase 75 U/L (15-37); Magnesium 2.1 mg/dl (1.8-2.4)
[2021-03-23 23:12] LABS: Hematocrit (blood only) 40.4 % (37-47); Hemoglobin 13.6 g/dL (12.0-16.0); Mean Corpuscular Hemoglobin 33.8 pg (25-34); Mean Corpuscular Hgb Conc 33.7 g/dL (32-36); Mean Corpuscular Volume 100.5 fL (80-100); Mean Platelet Volume 13.1 fL (7.4-10.4); Nucleated RBC # (auto) 0.05 K/uL (0-0); Nucleated RBC % (auto) 0.3 %; Platelet Count 236 K/uL (130-400); RDW Coefficient of Variation 16.1 % (11.5-14.5); Red Blood Count 4.02 M/uL (4.2-5.4); White Blood Count 14.83 K/uL (4.8-10.8)
[2021-03-23] MEDS ORDERED: HYDROCORTISONE SOD SUCCINATE 100 MG/2 ML VIAL IV STA (23:27)
--- NOTE | 2021-03-23 23:31 | History & Physical Report ---
Date of Service March 23, 2021 Assessment & Plan (1) Generalized weakness: Plan: Etiology uncertain. Patient reportedly weak, more confused, ambulatory dysfunction and abdominal pain for the last few days. 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 Patient is to take hydrocortisone - uncertain when last dose was taken or if she increased her dosing in light of current illness. Blood pressure is stable and electrolytes (K and Na) are unremarkable -Will administer Hydrocortisone 100mg IV q 6hrs - assess symptoms for improvement -Continue Desmopressin for diabetes incipidus -Continue Synthroid (3) Hypertension: Plan: Chronic. Blood pressure elevated 182/109 -Continue Chlorthalidone -Monitor (4) Scalp lesion: Plan: Known lesion secondary to meningioma extraction, poor wound healing and exposed mesh. No evidence of bleeding or secondary infection -Sera (5) Type 2 diabetes mellitus, with long-term current use of insulin: Plan: Glycemic management consultation. Patient on U500 at home. Hypoglycemic in the ER -Blood sugar checks q 2 hours (6) GERD (gastroesophageal reflux disease): Plan: Chronic -Pepcid 20mg po qAM while inpatient (7) Central hypothyroidism: Plan: Chronic -Continue Synthroid -TSH pending Plan: F/E/N - Heplock Ppx - Lovenox Code - Full - unable to ask patient or family - this should be discussed in AM Dispo - Admit to medical with telemetry History of Present Illness Chief Complaint: confusion Primary Care Provider: Jocelyn Bowser MD Patient is altered during my exam and is unable to provide details of events prior to arrival. No family at bedside at present. History obtained through discussion with ER staff and chart review. Unable to reach family by phone. Yoav Valencia is an 85yo female with history of DM, Panhypopituitarism (diabetes insipidus/anterior deficiency) presenting with abdominal pain. Patient has reportedly not been sleeping for the past 3 days. She has been complaining of abdominal discomfort. Also reportedly more confused than usual. No report of fever, chills, cough, congestion, nausea, vomiting, diarrhea reports patient is ambulatory with assistance and use of walker at baseline. However, over the last several days she has been unable to ambulate. Uncertain if she has been taking medications or if she has doubled her hydrocortisone for sick-day dosing BSG in ER 69. She was given 1 amp of D50. Patient was given 0.25mg of Ativan to obtain CT of the abdomen Allergies Allergy/AdvReac Type Severity Reaction Status Date / Time amoxicillin Allergy Intermediate Swelling Verified 03/23/21 17:21 of Lips Cipro Allergy Intermediate RASH, Verified 08/03/17 14:29 NAUSEA ciprofloxacin Allergy Intermediate RASH, Verified 03/23/21 17:21 NAUSEA Sulfa (Sulfonamide Allergy Intermediate RASH Verified 03/23/21 17:21 Antibiotics) biotin Allergy Unknown UNKN Verified 03/23/21 17:21 cefepime AdvReac Severe HALLUCINATI Verified 03/23/21 17:21 ONS diphenhydramine AdvReac Severe HYPER Verified 03/23/21 17:21 INSOMNIA mirtazapine AdvReac Intermediate altered Verified 03/23/21 17:21 mental status changes nitrofurantoin AdvReac Intermediate CHEST Verified 03/23/21 17:21 PAIN, CONFUSION oxycodone AdvReac Mild N/V Verified 03/23/21 17:21 Home Medications Medication Instructions Recorded Confirmed Type Bifidobacterium infantis 4 mg 4 mg PO DAILY 08/08/18 03/23/21 History capsule (Align) acetaminophen 325 mg capsule 325 mg PO Q6H PRN 08/08/18 03/23/21 History docusate sodium 100 mg capsule 100 mg PO DAILY 08/08/18 03/23/21 History latanoprost 0.005 % eye drops 1 drops OP QPM 08/08/18 03/23/21 History betamethasone dipropionate 0.05 % 1 appln TOP BID #60 ml 10/07/18 03/23/21 Rx lotion menthol 5 % topical gel (Biofreeze 5 % TOP BID PRN #30 gm 01/06/19 03/23/21 Rx (menthol)) polyethylene glycol 3350 17 17 gm PO DAILY PRN #510 gm 01/06/19 03/23/21 Rx gram/dose oral powder (Miralax) propylene glycol 0.6 % eye drops 1 drops OP QID PRN #20 ml 01/06/19 03/23/21 Rx (Systane Complete) diaper,brief,adult,disposable #4 bag 07/29/19 11/14/20 Rx (Fitted Briefs X-Large) disposable gloves (Nitrile Exam #1,000 ea 07/29/19 11/14/20 Rx Gloves) incontinence pad, liner, disp #40 ea 07/29/19 11/14/20 Rx (Underpads Regular) levothyroxine 125 mcg tablet 125 mcg PO DAILY #90 tab 04/19/20 03/23/21 Rx glucagon 3 mg/actuation nasal 3 mg INTRANASAL ONCE PRN #2 ea 05/16/20 03/23/21 Rx spray (Baqsimi) chlorthalidone 25 mg tablet 12.5 mg PO DAILY 90 Days #45 tab 05/30/20 03/23/21 Rx furosemide 20 mg tablet 20 mg PO Q OTHER DAY PRN #15 tab 06/24/20 03/23/21 Rx lancets 30 gauge (OneTouch Delica #200 ea 07/11/20 11/14/20 Rx Lancets) insulin regular hum U-500 conc See Rx Instructions SQ .COMPLEX #3 10/21/20 03/23/21 Rx (Humulin R U-500 (Conc) Insulin box Kwikpen) alendronate 70 mg tablet See Rx Instructions .ROUTE 11/15/20 03/23/21 Rx .COMPLEX #13 tab hydrocortisone 10 mg tablet 10 mg PO .COMPLEX 90 Days #360 tab 12/19/20 03/23/21 Rx MDD 4 tabs daily blood sugar diagnostic (OneTouch #200 ea 12/27/20 Rx Verio test strips) omeprazole 20 mg capsule,delayed See Rx Instructions .ROUTE 12/27/20 03/23/21 Rx release .COMPLEX #90 capsule calcitriol 0.25 mcg capsule 0.25 mcg PO DAILY #90 cap 01/12/21 03/23/21 Rx cefdinir 300 mg capsule 300 mg PO DAILY #90 cap 01/16/21 03/23/21 Rx desmopressin 0.1 mg tablet 0.1 mg PO DAILY #90 tab 01/25/21 03/23/21 Rx BD Ultra-Fine Short Pen Needle 31 #200 ea NS 02/13/21 Rx gauge x 5/16" (pen needle, diabetic) potassium chloride 20 mEq 20 meq PO BID #180 tab 03/20/21 03/23/21 Rx tablet,extended release(part/cryst) mirabegron 50 mg tablet,extended 50 mg PO DAILY #90 tab 03/21/21 03/23/21 Rx release 24 hr (Myrbetriq) multivitamin 1 tab PO DAILY 03/23/21 03/23/21 History Past Med/Surg History Medical History Acquired cyst of kidney Ambulatory dysfunction GERD (gastroesophageal reflux disease) Glaucoma History of basal cell carcinoma History of CVA (cerebrovascular accident) History of meningioma History of recurrent vertebral fractures Homonymous hemianopsia Hypertension Insomnia Nephrolithiasis OA (osteoarthritis) of knee Obesity Osteoporosis 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 Type 2 diabetes mellitus, with long-term current use of insulin Urinary incontinence Vitamin D insufficiency Surgical History H/O craniotomy H/O rectal polypectomy History of laparoscopic cholecystectomy History of salpingo-oophorectomy Hx of LASIK S/P cataract surgery S/P cholecystectomy Family History Sister Breast cancer Mother Bladder cancer Skin cancer Father Myocardial infarction Denies family history of Ovarian cancer Prostate cancer Colorectal cancer Social History Smoking Status: Unknown if ever smoked Second Hand Exposure: No; Hx Alcohol Use: No Hx Substance Use: No Preferred Language: Irish Communication Ability: Effective Visual Impairment: Blindness Hearing Ability: Hard of Hearing 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 Required: No Beliefs That Will Affect Care: None marital status: Current Living Situation: Spouse current occupational status: retired Other Information That Helps Us Care for You: No Feels Safe at Home: Yes Safety Concerns: Feels Safe At This Time caffeine: No Dental Care, Regularly: Yes Physical Activity Frequency: Does not Exercise Seatbelt Use: always Sunscreen Use: Yes Assistive Devices: Walker Review of Systems Review of Systems: Unobtainable due to reduced consciousness Physical Exam Physical Exam: General: patient somnolent, arousable, moans to questioning, follows some commands Skin: warm, dry, intact, venous stasis changes present on bilateral LE HEENT: NC/AT, PERRL, EOMI, anicteric sclera, conjunctiva without injection, external ear normal to inspection and nontender, nares patent, moist mucus membranes, dentition intact, no oropharyngeal lesions, neck supple, trachea midline, no LAD, no thyromegaly, no JVD, mass present on central frontal scalp - no bleeding, drainage or evidence of secondary infection Heart: +S1/S2, regular, no m/r/g Lungs: equal air entry bilaterally, no rales/rhonchi/wheezes Abd: +BS, soft, NT/ND, no masses/organomegaly/ascites Ext: warm, 2+ pulses in UE/LE bilaterally, no clubbing/cyanosis, 2+ bilateral LE edema Neuro: somnolent, moaning to questioning, follows simple commands - patient examined after receiving a small dose of Ativan Results & Data Results & Data ([facility]) Vital Signs (Past 12 Hours) Vital Signs Temp Pulse Pulse Resp BP BP Pulse Ox 03/23/21 23:00 95 H 16 172/82 H 96 03/23/21 21:50 102 H 19 134/70 96 03/23/21 20:26 94 03/23/21 20:20 105 H 23 88 L 03/23/21 20:10 108 H 24 90 03/23/21 20:05 110 H 03/23/21 19:30 110 H 20 03/23/21 19:20 107 H 20 03/23/21 19:10 105 H 20 91 03/23/21 19:00 104 H 21 90 03/23/21 18:50 105 H 19 168/82 H 95 03/23/21 18:40 106 H 20 94 03/23/21 18:30 111 H 22 03/23/21 17:50 95 03/23/21 17:40 105 H 23 92 03/23/21 17:39 36.8 C 103 H 26 H 177/87 H 96 03/23/21 17:30 109 H 23 03/23/21 17:20 107 H 21 03/23/21 17:10 107 H 20 03/23/21 17:00 103 H 24 03/23/21 16:50 104 H 21 95 03/23/21 16:40 107 H 22 94 03/23/21 16:30 103 H 22 93 03/23/21 16:26 104 H 21 94 Laboratory Results Laboratory Results WBC 14.83 K/uL (4.8-10.8) H 03/23/21 18:25 RBC 4.02 M/uL (4.2-5.4) L 03/23/21 18:25 Hgb 13.6 g/dL (12.0-16.0) 03/23/21 18:25 Hct 40.4 % (37-47) 03/23/21 18:25 MCV 100.5 fL (80-100) H 03/23/21 18:25 MCH 33.8 pg (25-34) 03/23/21 18: MCHC 33.7 g/dL (32-36) 03/23/21 18:25 RDW Std Deviation 59.0 fL (36.4-46.3) H 03/23/21 18:25 RDW Coeff of Fritz 16.1 % (11.5-14.5) H 03/23/21 18:25 Plt Count 236 K/uL (130-400) 03/23/21 18:25 MPV 13.1 fL (7.4-10.4) H 03/23/21 18:25 Absolute Nucleated RBC 0.05 K/uL (0-0) H 03/23/21 18:25 Nucleated RBC % (auto) 0.3 % 03/23/21 18:25 Neutrophils % (Manual) 85.2 % 03/23/21 18:25 Lymphocytes % (Manual) 9.6 % 03/23/21 18:25 Monocytes % (Manual) 4.3 % 03/23/21 18:25 Basophils % (Manual) 0.9 % 03/23/21 18:25 Neutrophils # (Manual) 12.64 K/uL (1.4-6.5) H 03/23/21 18:25 Total Absolute Neuts 12.64 K/uL (1.4-6.5) H 03/23/21 18:25 Lymphocytes # (Manual) 1.42 K/uL (1.2-3.4) 03/23/21 18:25 Total Abs Lymphocytes 1.42 K/uL (1.2-3.4) 03/23/21 18:25 Monocytes # (Manual) 0.64 K/uL (0.11-0.59) H 03/23/21 18:25 Basophils # (Manual) 0.13 K/uL (0-0.2) 03/23/21 18:25 RBC Morphology Unremarkable 03/23/21 18:25 PT 10.2 Seconds (9.0-12.0) 03/23/21 18:25 INR 1.0 (0.9-1.1) 03/23/21 18:25 Sodium 137 mmol/L (136-145) 03/23/21 18:25 Potassium 3.9 mmol/L (3.5-5.1) 03/23/21 21:21 Chloride 106 mmol/L (98-107) 03/23/21 18:25 Carbon Dioxide 27 mmol/L (21-32) 03/23/21 18:25 Anion Gap 4.0 (3-11) 03/23/21 18:25 BUN 23 mg/dl (7-18) H 03/23/21 18:25 Creatinine 1.11 mg/dl (0.6-1.2) 03/23/21 18:25 Est Cr Clr Drug Dosing 48.7 ml/min 03/23/21 18:25 Est GFR ( Amer) 52.8 ml/min 03/23/21 18:25 Est GFR (Non-Af Amer) 45.6 ml/min 03/23/21 18:25 BUN/Creatinine Ratio 20.6 (10-20) H 03/23/21 18:25 Glucose 173 mg/dl (70-99) H 03/23/21 18:25 POC Glucose 129 mg/dl (70-99) H 03/23/21 22:58 Calcium 9.4 mg/dl (8.5-10.1) 03/23/21 18:25 Phosphorus 2.0 mg/dl (2.5-4.9) L 03/23/21 18:25 Magnesium 2.1 mg/dl (1.8-2.4) 03/23/21 21:21 Total Bilirubin 0.8 mg/dl (0.2-1) 03/23/21 18:25 AST 75 U/L (15-37) H 03/23/21 21:21 ALT 116 U/L (12-78) H 03/23/21 18:25 Alkaline Phosphatase 189 U/L (45-117) H 03/23/21 18:25 Troponin I < 0.015 ng/ml (0-0.045) 03/23/21 18:25 Total Protein 7.4 gm/dl (6.4-8.2) 03/23/21 18:25 Albumin 2.5 gm/dl (3.4-5.0) L 03/23/21 18:25 Globulin 4.9 gm/dl (2.5-4.0) H 03/23/21 18:25 Albumin/Globulin Ratio 0.5 (0.9-2) L 03/23/21 18:25 Lipase 73 U/L (73-393) 03/23/21 18:25 Urine Color Yellow 03/24/21 00:35 Urine Appearance Clear (Clear) 03/24/21 00:35 Urine pH 6.5 (4.5-7.5) 03/24/21 00:35 Ur Specific Hoagland 1.020 (1.000-1.030) 03/24/21 00:35 Urine Protein Negative (Negative) 03/24/21 00:35 Urine Glucose (UA) Negative (Negative) 03/24/21 00:35 Urine Ketones Negative (Negative) 03/24/21 00:35 Urine Blood Negative (Negative) 03/24/21 00:35 Urine Nitrite Negative (Negative) 03/24/21 00:35 Urine Bilirubin Negative (Negative) 03/24/21 00:35 Urine Urobilinogen Negative (Negative) 03/24/21 00:35 Ur Leukocyte Esterase 1+ (Negative) H 03/24/21 00:35 Urine WBC (Auto) 1-5 /hpf (0-5) 03/24/21 00:35 Urine RBC (Auto) 0-4 /hpf (0-4) 03/24/21 00:35 U Hyaline Cast (Auto) 0 /lpf (0-5) 03/24/21 00:35 U Epithel Cells (Auto) 0-5 /lpf (0-5) 03/24/21 00:35 Urine Bacteria (Auto) 1+ (Negative) H 03/24/21 00:35 SARS-CoV-2, RNA, NAAT NEGATIVE (NEGATIVE) 03/23/21 22:[address] 03/23/21 16:30 CT OF THE HEAD WITHOUT CONTRAST CLINICAL HISTORY: Altered mental status. COMPARISON STUDY: MRI of the brain March 03, 2017. Head CT August 03, 2017. CT DOSE: 1305.31 mGy.cm TECHNIQUE: Helical axial images of the head were obtained without IV contrast. Automated exposure control was utilized for the study. A dose lowering technique was utilized adhering to the principles of ALARA. FINDINGS: This exam is markedly complex by motion artifact. No acute intracranial hemorrhage, midline shift or mass effect is present. Ventricular system is stable. Basal cisterns are patent. Bifrontal craniotomies are noted. Note is made of a 4.2 x 2.3 cm mass-like abnormality overlying the right frontal craniotomy. This was not present on head CT of March 03, 2017. No calvarial fractures are identified although sensitivity is diminished on this examination. IMPRESSION: 1. Study markedly compromised by motion artifact. No acute intracranial findings identified. 2. 4.2 x 2.3 cm mass-like abnormality overlying the right frontal craniotomy. This is suboptimally assessed on this exam given motion artifact. This is indeterminate and recurrent meningioma with extracranial extension cannot be excluded. Findings discussed with Dr. Newsome at time of dictation. ACT 112: Negative or not required by law. Electronically signed by: Jhoan Mena M.D. 03/23/2021 6:28 PM Chest X-Ray 03/23/21 16:31 XR chest 1V portable CLINICAL HISTORY: Altered mental status. COMPARISON STUDY: Chest radiograph June 24, 2020. FINDINGS: Lung volumes are mildly diminished. Mild elevation of the right hemidiaphragm is noted. There is cardiomegaly without evidence for pulmonary edema. No consolidation is identified to suggest pneumonia. Linear left basilar opacities favor atelectasis. IMPRESSION: No acute cardiopulmonary findings. ACT 112: Negative or not required by law. Electronically signed by: Jhoan Mena M.D. 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) E23.0 Hypertension I10 Hypertension type: essential hypertension Scalp lesion L98.9 Type 2 diabetes mellitus, with long-term current use of insulin E11.22; N18.3; Z79.4 Diabetes mellitus complication status: with kidney complications Diabetes mellitus complication detail: with chronic kidney disease Chronic kidney disease stage: stage 3 (moderate) GERD (gastroesophageal reflux disease) K21.9 Central hypothyroidism E03.8 (1) Hypertension Hypertension type: essential hypertension Qualified Code(s): I10 - Essential (primary) hypertension (2) Type 2 diabetes mellitus, with long-term current use of insulin Diabetes mellitus complication status: with kidney complications Diabetes mellitus complication detail: with chronic kidney disease Chronic kidney disease stage: stage 3 (moderate) Qualified Code(s): E11.22 - Type 2 diabetes mellitus with diabetic chronic kidney disease; N18.3 - Chronic kidney disease, stage 3 (moderate); 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
[2021-03-23 23:36] LABS: ALC (manual) 1.42 K/uL (1.2-3.4); ANC (manual) 12.64 K/uL (1.4-6.5); Basophils # (manual) 0.13 K/uL (0-0.2); Basophils % (manual) 0.9 %; Lymphocytes # (manual) 1.42 K/uL (1.2-3.4); Lymphocytes % (manual) 9.6 %; Monocytes # (manual) 0.64 K/uL (0.11-0.59); Monocytes % (manual) 4.3 %; Neutrophils # (manual) 12.64 K/uL (1.4-6.5); Neutrophils % (manual) 85.2 %; RBC Morphology Unremarkable
[2021-03-24 00:54] LABS: Appearance Urine Clear (Clear); Bacteria Urine Automated 1+ (Negative); Bilirubin Urine Negative (Negative); Blood Urine Negative (Negative); Cast Urine Automated 0 /lpf (0-5); Color Urine Yellow; Epithelial Cell Urine Auto 0-5 /lpf (0-5); Glucose Urine UA Negative (Negative); Ketones Urine Negative (Negative); Leukocyte Esterase Urine 1+ (Negative); Nitrite Urine Negative (Negative); Protein Urine Negative (Negative); RBC Urine Automated 0-4 /hpf (0-4); Urobilinogen Urine Negative (Negative); pH Urine 6.5 (4.5-7.5)
[2021-03-24] MEDS ORDERED: NON-FORMULARY MEDICATION (Acetaminophen 325 mg capsule) PO PRN (01:28)
[2021-03-24] MEDS ORDERED: ONDANSETRON INJ 2 MG/ML 2 ML VIAL IV PRN (01:28)
[2021-03-24] MEDS ORDERED: PHARMACY GLYCEMIC MGMT CONSULT PRN (01:28)
[2021-03-24] MEDS ORDERED: CARBOHYDRATES FOR HYPOGLYCEMIA PO PRN (01:28)
[2021-03-24] MEDS ORDERED: GLUCOSE 40% GEL 15 GM TUBE PO PRN (01:28)
[2021-03-24] MEDS ORDERED: ACETAMINOPHEN 325 MG TAB PO PRN (01:28)
[2021-03-24] MEDS ORDERED: GLUCOSE 10 TABS/TUBE PO PRN (01:28)
[2021-03-24] MEDS ORDERED: GLUCAGON FOR INJ 1 MG VIAL SQ PRN (01:28)
[2021-03-24] MEDS ORDERED: POLYETHYLENE (MIRALAX) 17 GM PACK PO PRN (01:28)
[2021-03-24] MEDS: ENOXAPARIN INJ 40 MG/0.4 ML SYR SQ SCH ×2 (02:37→20:28)
[2021-03-24 02:39] LABS: Thyroid Stimulating Hormone < 0.005 uIu/ml (0.300-4.500)
[2021-03-24 02:51] LABS: T4 Free Thyroxine 1.42 ng/dl (0.8-1.6)
[2021-03-24] MEDS: HYDROCORTISONE SOD 100 MG in SYRINGE 0 ML IV SCH ×3 (06:03→20:28)
[2021-03-24] MEDS: INSULIN ASPART 100 UNITS/ML 3 ML PEN SC SCH ×3 (06:10→19:02)
[2021-03-24] MEDS: LEVOTHYROXINE SODIUM 125 MCG TABLET PO SCH (06:15)
--- NOTE | 2021-03-24 08:07 | Hospitalist Progress Note ---
Date of Service March 24, 2021 Assessment & Plan (1) Generalized weakness: Plan: Etiology uncertain. 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 In August of 2013, she underwent surgery for a meningioma. Yoav developed seizures post operatively. 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 This was complicated by intracranial hemorrhage post-operatively . She has an unhealed wound on her scalp following repeat craniotomy for which she is maintained on chronic suppressive antibiotics. Post-operative recovery was complicated by a fall at [facility] which resulted in cervical spine fractures. At this time, Yoav is chronically wheelchair dependent. She requires 24 hour assistance from a caregiver which includes assistance with most every activity to daily living." Patient reportedly weak, more confused, ambulatory dysfunction and abdominal pain for the last few days per but hadn't been sleeping x 3 days and this has happened in the past Ddx to include adrenal insufficiency (no hypotension), infection (chronic elevations WBC), dehydration (reported less oral intake per outpatient notes, suspect advancement of dementia as well) TSH undetectable -- unreliable in patient with panhypopituitarism. Free T4 wnl 1.42 and continued usual synthroid --> Follows with Dr. raya. Discussed on phone, patient not great at baseline from mental status standpoint. Rec ensuring to continue Ms Fix DDAVP and be cognizant that once ADH on, stays on, and patient with retainment of water. Holding off on IVF for now Ammonia wnl Folate >20 B12 1764 Procal 0.13-- is to be on chronic suppressive therapy w/ cefdinir 300mg daily for scalp (also bleeding some this afternoon around edges) CXR without acute acute process CTA/P * 1. Small nondisplaced fracture within the anterior aspect of the T9 vertebral body. 2. No bowel wall thickening or obstruction. Normal appendix. 3. Colonic diverticulosis. No evidence for acute diverticulitis. 4. Prior cholecystectomy with a small amount of pneumobilia, unchanged. 5. Left-sided nephrolithiasis. No ureteral stones. No hydronephrosis CT Head * 1. Study markedly compromised by motion artifact. No acute intracranial findings identified. * 2. 4.2 x 2.3 cm mass-like abnormality overlying the right frontal craniotomy. This is suboptimally assessed on this exam given motion artifact. This is indeterminate and recurrent meningioma with extracranial extension cannot be excluded. Findings discussed with Dr. Newsome at time of dictation. ??Per dermatology notes outpatient, was told not to touch this mass and to leave it alone. Does have hx BCC s/p Mohs above R eye Check MRI Brain pituitary w/wo as previously ordered by endocrinology outpatient but this was never performed Check PTH w/ AM labs. 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 Patient is to take hydrocortisone - uncertain when last dose was taken or if she increased her dosing in light of current illness. Blood pressure is stable and electrolytes (K and Na) are unremarkable Continue Hydrocortisone 100mg IV q 6hrs - assess symptoms for improvement -- alert but not oriented (appears baseline) --> consider switching back to usual hydrocortisone tomorrow -Continue Desmopressin for diabetes insipidus -Continue Synthroid Checking MRI pituitary as above, PTH/vit D in AM (3) Thoracic compression fracture: Plan: On imaging Have not reached but CM was able to discuss and patient had been complaining of "knot in back" and noted fracture at T9 --> image thoracic spine for further investigation (4) Hypertension: Plan: Chronic. Blood pressure elevated 182/109 on admission -Continue Chlorthalidone (RN administered 25mg this AM on accident --> 12.5mg o rdered in system) BP currently 130/75 (5) Scalp lesion: Plan: Known lesion secondary to meningioma extraction, poor wound healing and exposed mesh. Does have some bleeding today, no evidence of infection but concerns given hx bcc/meningioma ?consult for biopsy although was told not to in the past -- will need continued reaching out to , unable to reach today (6) Type 2 diabetes mellitus, with long-term current use of insulin: Plan: Glycemic management consultation. Patient on U500 at home. Hypoglycemic in the ER -Blood sugar checks q 2 hours PHARMACY ON CONSULTED -- PER DR RAYA, VERY DIFFICULT TO CONTROL ON OTHER AGENTS THAN U-500. discussed with pharmacy --> BSGS increasing but now improved Continue to monitor (7) GERD (gastroesophageal reflux disease): Plan: Chronic -Pepcid 20mg po qAM while inpatient (8) Central hypothyroidism: Plan: Chronic -Continue Synthroid Plan: F/E/N - Heplock Ppx - Lovenox Code - Full for now, will continue discussion with in AM Admission and Anticipated Discharge Date Admission Date: March 23, 2021 Supervising Physician Co-Signing Physician Notes PA Supervision Note: I did not personally see or examine the patient today, but I verified all aviles points of ALVIN Barber's assessment and plan with the following exceptions/additions: None Subjective patient evaluated this afternoon in ER Alert but not oriented, no family at bedside Wanting something to drink. Passed dysphagia screening. Asked nursing to provide drink. ADvance as tolerated. Patient had been combative and hitting/biting staff earlier. Per RN, patient had been reported to have done this in the past and get increasingly confused when she hasn't slept in several days (had been 3 days by report). Denied any fever, chills, chest pain, shortness of breath but did endorse abdominal pain. No nausea or vomiting. Has no idea where she is, the year is 1996, and why she is in the hospital. Pleasantly confused during my encounter but yelling out when touched. Review of Systems Review of Systems: Unobtainable due to cognitive status Physical Exam Physical Exam: General: patient awake, alert to her name but not place/time/event or situation Skin: warm, dry, intact, venous stasis changes present on bilateral LE with skin flaking HEENT: NC/AT, PERRL, EOMI, anicteric sclera, conjunctiva without injection, external ear normal to inspection and nontender, nares patent, mucus membranes slightly dry, dentition intact, no oropharyngeal lesions, neck supple, trachea midline, no LAD, no thyromegaly, no JVD, LARGE FUNGATING mass present on central frontal scalp - BLEEDING NOTED TO CAUSE COVERING, NONTENDER TO TOUCH Heart: +S1/S2, regular, 100BPM, no m/r/g, 2+ b/l LE edema, calves equal in size Lungs: no rales/rhonchi/wheezes, diminished in the bases, poor inspiratory effort when asked to take a deep breath, stable on room air Abd: +hypoactive, soft, non-distended, not focally tender although yelling out when touched anywhere, Ext: cool, 2+ pulses in UE/LE bilaterally, no clubbing/cyanosis, 2+ bilateral LE edema tender to palpation across thoracic spine but not able to localize due to grabbing and yelling Neuro: alert and oriented to self but not place/time/situation. generalized weakness b/l LE but equal strength b/l UE and went to swing at me when touching her belly Results & Data Results & Data ([facility]) Vital Signs (Past 12 Hours) Vital Signs Temp Pulse Pulse Resp BP BP Pulse Ox 03/24/21 19:09 36.8 C 85 20 130/75 92 03/24/21 10:57 125/69 03/24/21 07:37 36.5 C 102 H 20 137/77 91 03/24/21 06:15 102 H 22 166/92 H 93 03/24/21 01:59 92 H 16 182/109 H 94 03/24/21 01:40 92 H 16 161/81 H 93 03/24/21 01:02 88 16 161/81 H 93 03/24/21 00:29 92 H 19 108/93 94 03/23/21 23:00 95 H 16 172/82 H 96 03/23/21 21:50 102 H 19 134/70 96 03/23/21 20:26 94 03/23/21 20:20 105 H 23 88 L 03/23/21 20:10 108 H 24 90 03/23/21 20:05 110 H 03/23/21 19:30 110 H 20 Intake and Output 03/24/21 03/24/21 03/24/21 06:59 14:59 22:59 Other: Weight 105.2 kg Weight Measurement Method Chair Scale Laboratory Results 03/24/21 03/24/21 03/24/21 Range/Units Unknown 19:01 14:00 WBC (4.8-10.8) K/uL RBC (4.2-5.4) M/uL Hgb (12.0-16.0) g/dL Hct (37-47) % MCV (80-100) fL MCH (25-34) pg MCHC (32-36) g/dL RDW Std Deviation (36.4-46.3) fL RDW Coeff of Fritz (11.5-14.5) % Plt Count (130-400) K/uL MPV (7.4-10.4) fL Absolute Nucleated RBC (0-0) K/uL Nucleated RBC % (auto) % Neutrophils % (Manual) % Lymphocytes % (Manual) % Monocytes % (Manual) % Basophils % (Manual) % Neutrophils # (Manual) (1.4-6.5) K/uL Total Absolute Neuts (1.4-6.5) K/uL Lymphocytes # (Manual) (1.2-3.4) K/uL Total Abs Lymphocytes (1.2-3.4) K/uL Monocytes # (Manual) (0.11-0.59) K/uL Basophils # (Manual) (0-0.2) K/uL RBC Morphology Sodium 145 Potassium 4.1 (3.5-5.1) mmol/L Chloride 112 H (98-107) mmol/L Carbon Dioxide 24 (21-32) mmol/L Anion Gap 9.0 (3-11) BUN 21 H (7-18) mg/dl Creatinine 1.23 H (0.6-1.2) mg/dl Est Cr Clr Drug Dosing 44.0 ml/min Est GFR ( Amer) 46.6 ml/min Est GFR (Non-Af Amer) 40.2 ml/min BUN/Creatinine Ratio 16.8 (10-20) Glucose 258 H (70-99) mg/dl POC Glucose 109 H 233 H (70-99) mg/dl Calcium 9.6 (8.5-10.1) mg/dl Phosphorus 2.6 (2.5-4.9) mg/dl Magnesium (1.8-2.4) mg/dl Total Bilirubin 0.9 (0.2-1) mg/dl Direct Bilirubin 0.4 H (0-0.2) mg/dl AST 68 H (15-37) U/L ALT 98 H (12-78) U/L Alkaline Phosphatase 168 H (45-117) U/L Ammonia (11-32) umol/L Total Protein 7.6 (6.4-8.2) gm/dl Albumin 2.5 L (3.4-5.0) gm/dl Globulin (2.5-4.0) gm/dl Albumin/Globulin Ratio (0.9-2) Vitamin B12 (193-986) pg/ml Folate (>5.38) ng/ml Procalcitonin (0-0.5) ng/ml TSH < 0.005 L (0.300-4.500) uIu/ml Free T4 (0.8-1.6) ng/dl Urine Color Urine Appearance (Clear) Urine pH (4.5-7.5) Ur Specific [place] (1.000-1.030) Urine Protein (Negative) Urine Glucose (UA) (Negative) Urine Ketones (Negative) Urine Blood (Negative) Urine Nitrite (Negative) Urine Bilirubin (Negative) Urine Urobilinogen (Negative) Ur Leukocyte Esterase (Negative) Urine WBC (Auto) (0-5) /hpf Urine RBC (Auto) (0-4) /hpf U Hyaline Cast (Auto) (0-5) /lpf U Epithel Cells (Auto) (0-5) /lpf Urine Bacteria (Auto) (Negative) SARS-CoV-2, RNA, NAAT (NEGATIVE) 03/24/21 03/24/21 03/24/21 Range/Units 13:19 13:19 13:19 WBC (4.8-10.8) K/uL RBC (4.2-5.4) M/uL Hgb (12.0-16.0) g/dL Hct (37-47) % MCV (80-100) fL MCH (25-34) pg MCHC (32-36) g/dL RDW Std Deviation (36.4-46.3) fL RDW Coeff of Fritz (11.5-14.5) % Plt Count (130-400) K/uL MPV (7.4-10.4) fL Absolute Nucleated RBC (0-0) K/uL Nucleated RBC % (auto) % Neutrophils % (Manual) % Lymphocytes % (Manual) % Monocytes % (Manual) % Basophils % (Manual) % Neutrophils # (Manual) (1.4-6.5) K/uL Total Absolute Neuts (1.4-6.5) K/uL Lymphocytes # (Manual) (1.2-3.4) K/uL Total Abs Lymphocytes (1.2-3.4) K/uL Monocytes # (Manual) (0.11-0.59) K/uL Basophils # (Manual) (0-0.2) K/uL RBC Morphology Sodium Pending Potassium 4.0 (3.5-5.1) mmol/L Chloride 112 H (98-107) mmol/L Carbon Dioxide 27 (21-32) mmol/L Anion Gap 6.0 (3-11) BUN 19 H (7-18) mg/dl Creatinine 1.20 (0.6-1.2) mg/dl Est Cr Clr Drug Dosing 45.1 ml/min Est GFR ( Amer) 48.1 ml/min Est GFR (Non-Af Amer) 41.5 ml/min BUN/Creatinine Ratio 16.1 (10-20) Glucose 254 H (70-99) mg/dl POC Glucose (70-99) mg/dl Calcium 9.7 (8.5-10.1) mg/dl Phosphorus (2.5-4.9) mg/dl Magnesium (1.8-2.4) mg/dl Total Bilirubin 0.9 (0.2-1) mg/dl Direct Bilirubin (0-0.2) mg/dl AST 68 H (15-37) U/L ALT 99 H (12-78) U/L Alkaline Phosphatase 172 H (45-117) U/L Ammonia 28.4 (11-32) umol/L Total Protein 7.6 (6.4-8.2) gm/dl Albumin 2.5 L (3.4-5.0) gm/dl Globulin 5.1 H (2.5-4.0) gm/dl Albumin/Globulin Ratio 0.5 L (0.9-2) Vitamin B12 (193-986) pg/ml Folate (>5.38) ng/ml Procalcitonin 0.13 (0-0.5) ng/ml TSH (0.300-4.500) uIu/ml Free T4 (0.8-1.6) ng/dl Urine Color Urine Appearance (Clear) Urine pH (4.5-7.5) Ur Specific [place] (1.000-1.030) Urine Protein (Negative) Urine Glucose (UA) (Negative) Urine Ketones (Negative) Urine Blood (Negative) Urine Nitrite (Negative) Urine Bilirubin (Negative) Urine Urobilinogen (Negative) Ur Leukocyte Esterase (Negative) Urine WBC (Auto) (0-5) /hpf Urine RBC (Auto) (0-4) /hpf U Hyaline Cast (Auto) (0-5) /lpf U Epithel Cells (Auto) (0-5) /lpf Urine Bacteria (Auto) (Negative) SARS-CoV-2, RNA, NAAT (NEGATIVE) 03/24/21 03/24/21 03/24/21 Range/Units 13:19 13:19 06:05 WBC 14.89 H (4.8-10.8) K/uL RBC 4.35 (4.2-5.4) M/uL Hgb 14.6 (12.0-16.0) g/dL Hct 43.7 (37-47) % MCV 100.5 H (80-100) fL MCH 33.6 (25-34) pg MCHC 33.4 (32-36) g/dL RDW Std Deviation 58.4 H (36.4-46.3) fL RDW Coeff of Fritz 15.8 H (11.5-14.5) % Plt Count 244 (130-400) K/uL MPV 12.2 H (7.4-10.4) fL Absolute Nucleated RBC 0.05 H (0-0) K/uL Nucleated RBC % (auto) 0.3 % Neutrophils % (Manual) % Lymphocytes % (Manual) % Monocytes % (Manual) % Basophils % (Manual) % Neutrophils # (Manual) (1.4-6.5) K/uL Total Absolute Neuts (1.4-6.5) K/uL Lymphocytes # (Manual) (1.2-3.4) K/uL Total Abs Lymphocytes (1.2-3.4) K/uL Monocytes # (Manual) (0.11-0.59) K/uL Basophils # (Manual) (0-0.2) K/uL RBC Morphology Sodium Potassium (3.5-5.1) mmol/L Chloride (98-107) mmol/L Carbon Dioxide (21-32) mmol/L Anion Gap (3-11) BUN (7-18) mg/dl Creatinine (0.6-1.2) mg/dl Est Cr Clr Drug Dosing ml/min Est GFR ( Amer) ml/min Est GFR (Non-Af Amer) ml/min BUN/Creatinine Ratio (10-20) Glucose (70-99) mg/dl POC Glucose 243 H (70-99) mg/dl Calcium (8.5-10.1) mg/dl Phosphorus (2.5-4.9) mg/dl Magnesium (1.8-2.4) mg/dl Total Bilirubin (0.2-1) mg/dl Direct Bilirubin (0-0.2) mg/dl AST (15-37) U/L ALT (12-78) U/L Alkaline Phosphatase (45-117) U/L Ammonia (11-32) umol/L Total Protein (6.4-8.2) gm/dl Albumin (3.4-5.0) gm/dl Globulin (2.5-4.0) gm/dl Albumin/Globulin Ratio (0.9-2) Vitamin B12 1764 H (193-986) pg/ml Folate > 20.00 (>5.38) ng/ml Procalcitonin (0-0.5) ng/ml TSH (0.300-4.500) uIu/ml Free T4 (0.8-1.6) ng/dl Urine Color Urine Appearance (Clear) Urine pH (4.5-7.5) Ur Specific [place] (1.000-1.030) Urine Protein (Negative) Urine Glucose (UA) (Negative) Urine Ketones (Negative) Urine Blood (Negative) Urine Nitrite (Negative) Urine Bilirubin (Negative) Urine Urobilinogen (Negative) Ur Leukocyte Esterase (Negative) Urine WBC (Auto) (0-5) /hpf Urine RBC (Auto) (0-4) /hpf U Hyaline Cast (Auto) (0-5) /lpf U Epithel Cells (Auto) (0-5) /lpf Urine Bacteria (Auto) (Negative) SARS-CoV-2, RNA, NAAT (NEGATIVE) 03/24/21 03/23/21 03/23/21 Range/Units 00:35 22:58 22:03 WBC (4.8-10.8) K/uL RBC (4.2-5.4) M/uL Hgb (12.0-16.0) g/dL Hct (37-47) % MCV (80-100) fL MCH (25-34) pg MCHC (32-36) g/dL RDW Std Deviation (36.4-46.3) fL RDW Coeff of Fritz (11.5-14.5) % Plt Count (130-400) K/uL MPV (7.4-10.4) fL Absolute Nucleated RBC (0-0) K/uL Nucleated RBC % (auto) % Neutrophils % (Manual) % Lymphocytes % (Manual) % Monocytes % (Manual) % Basophils % (Manual) % Neutrophils # (Manual) (1.4-6.5) K/uL Total Absolute Neuts (1.4-6.5) K/uL Lymphocytes # (Manual) (1.2-3.4) K/uL Total Abs Lymphocytes (1.2-3.4) K/uL Monocytes # (Manual) (0.11-0.59) K/uL Basophils # (Manual) (0-0.2) K/uL RBC Morphology Sodium Potassium (3.5-5.1) mmol/L Chloride (98-107) mmol/L Carbon Dioxide (21-32) mmol/L Anion Gap (3-11) BUN (7-18) mg/dl Creatinine (0.6-1.2) mg/dl Est Cr Clr Drug Dosing ml/min Est GFR ( Amer) ml/min Est GFR (Non-Af Amer) ml/min BUN/Creatinine Ratio (10-20) Glucose (70-99) mg/dl POC Glucose 129 H (70-99) mg/dl Calcium (8.5-10.1) mg/dl Phosphorus (2.5-4.9) mg/dl Magnesium (1.8-2.4) mg/dl Total Bilirubin (0.2-1) mg/dl Direct Bilirubin (0-0.2) mg/dl AST (15-37) U/L ALT (12-78) U/L Alkaline Phosphatase (45-117) U/L Ammonia (11-32) umol/L Total Protein (6.4-8.2) gm/dl Albumin (3.4-5.0) gm/dl Globulin (2.5-4.0) gm/dl Albumin/Globulin Ratio (0.9-2) Vitamin B12 (193-986) pg/ml Folate (>5.38) ng/ml Procalcitonin (0-0.5) ng/ml TSH (0.300-4.500) uIu/ml Free T4 (0.8-1.6) ng/dl Urine Color Yellow Urine Appearance Clear (Clear) Urine pH 6.5 (4.5-7.5) Ur Specific [place] 1.020 (1.000-1.030) Urine Protein Negative (Negative) Urine Glucose (UA) Negative (Negative) Urine Ketones Negative (Negative) Urine Blood Negative (Negative) Urine Nitrite Negative (Negative) Urine Bilirubin Negative (Negative) Urine Urobilinogen Negative (Negative) Ur Leukocyte Esterase 1+ H (Negative) Urine WBC (Auto) 1-5 (0-5) /hpf Urine RBC (Auto) 0-4 (0-4) /hpf U Hyaline Cast (Auto) 0 (0-5) /lpf U Epithel Cells (Auto) 0-5 (0-5) /lpf Urine Bacteria (Auto) 1+ H (Negative) SARS-CoV-2, RNA, NAAT NEGATIVE (NEGATIVE) 03/23/21 03/23/21 03/23/21 Range/Units 21:42 21:21 18:25 WBC 14.83 H (4.8-10.8) K/uL RBC 4.02 L (4.2-5.4) M/uL Hgb 13.6 (12.0-16.0) g/dL Hct 40.4 (37-47) % MCV 100.5 H (80-100) fL MCH 33.8 (25-34) pg MCHC 33.7 (32-36) g/dL RDW Std Deviation 59.0 H (36.4-46.3) fL RDW Coeff of Fritz 16.1 H (11.5-14.5) % Plt Count 236 (130-400) K/uL MPV 13.1 H (7.4-10.4) fL Absolute Nucleated RBC 0.05 H (0-0) K/uL Nucleated RBC % (auto) 0.3 % Neutrophils % (Manual) 85.2 % Lymphocytes % (Manual) 9.6 % Monocytes % (Manual) 4.3 % Basophils % (Manual) 0.9 % Neutrophils # (Manual) 12.64 H (1.4-6.5) K/uL Total Absolute Neuts 12.64 H (1.4-6.5) K/uL Lymphocytes # (Manual) 1.42 (1.2-3.4) K/uL Total Abs Lymphocytes 1.42 (1.2-3.4) K/uL Monocytes # (Manual) 0.64 H (0.11-0.59) K/uL Basophils # (Manual) 0.13 (0-0.2) K/uL RBC Morphology Unremarkable Sodium Potassium 3.9 (3.5-5.1) mmol/L Chloride (98-107) mmol/L Carbon Dioxide (21-32) mmol/L Anion Gap (3-11) BUN (7-18) mg/dl Creatinine (0.6-1.2) mg/dl Est Cr Clr Drug Dosing ml/min Est GFR ( Amer) ml/min Est GFR (Non-Af Amer) ml/min BUN/Creatinine Ratio (10-20) Glucose (70-99) mg/dl POC Glucose 69 L* (70-99) mg/dl Calcium (8.5-10.1) mg/dl Phosphorus (2.5-4.9) mg/dl Magnesium 2.1 (1.8-2.4) mg/dl Total Bilirubin (0.2-1) mg/dl Direct Bilirubin (0-0.2) mg/dl AST 75 H (15-37) U/L ALT (12-78) U/L Alkaline Phosphatase (45-117) U/L Ammonia (11-32) umol/L Total Protein (6.4-8.2) gm/dl Albumin (3.4-5.0) gm/dl Globulin (2.5-4.0) gm/dl Albumin/Globulin Ratio (0.9-2) Vitamin B12 (193-986) pg/ml Folate (>5.38) ng/ml Procalcitonin (0-0.5) ng/ml TSH < 0.005 L (0.300-4.500) uIu/ml Free T4 1.42 (0.8-1.6) ng/dl Urine Color Urine Appearance (Clear) Urine pH (4.5-7.5) Ur Specific [place] (1.000-1.030) Urine Protein (Negative) Urine Glucose (UA) (Negative) Urine Ketones (Negative) Urine Blood (Negative) Urine Nitrite (Negative) Urine Bilirubin (Negative) Urine Urobilinogen (Negative) Ur Leukocyte Esterase (Negative) Urine WBC (Auto) (0-5) /hpf Urine RBC (Auto) (0-4) /hpf U Hyaline Cast (Auto) (0-5) /lpf U Epithel Cells (Auto) (0-5) /lpf Urine Bacteria (Auto) (Negative) SARS-CoV-2, RNA, NAAT (NEGATIVE) Diagnostic Findings Abdomen/Pelvis CT 03/23/21 19:[address] WITH IV CONTRAST CT DOSE: 1602.82 mGy.cm HISTORY: Right-sided abdominal pain. Right-sided flank pain. TECHNIQUE: Multiaxial CT images of the abdomen and pelvis were performed following the use of intravenous contrast. A dose lowering technique was utilized adhering to the principles of ALARA. COMPARISON STUDY: Abdomen and pelvis CT 08/03/2017. FINDINGS: Mild motion artifact. Mild bibasilar subsegmental atelectasis. No pneumoperitoneum. No pneumatosis. Small nondisplaced fracture within the anterior aspect of the T9 vertebral body. Cholecystectomy with a small amount of pneumobilia, unchanged. No hepatic or splenic masses. The adrenal glands unremarkable. Stable pancreatic atrophy. No retroperitoneal lymphadenopathy. Normal caliber abdominal aorta. The kidneys are suboptimally assessed due to streak artifact from the overlapping arms. There appear to be multiple bilateral small peripelvic renal cysts. There are few subcentimeter hypodense lesions within the kidneys which are technically too small to characterize. There is a stable 1.4 cm hypodense lesion within the interpolar region of the left kidney which is difficult to characterize due to the artifact but likely represents a cyst given the long-term stability. There is a punctate stone within the lower pole of the left kidney. No definite right renal calculi. No ureteral calculi. No hydronephrosis. The bladder is unremarkable. The uterus and bilateral adnexa are within normal limits. Colonic diverticulosis. No evidence for acute diverticulitis. No bowel wall thickening or obstruction. Normal appendix. IMPRESSION: 1. Small nondisplaced fracture within the anterior aspect of the T9 vertebral body. 2. No bowel wall thickening or obstruction. Normal appendix. 3. Colonic diverticulosis. No evidence for acute diverticulitis. 4. Prior cholecystectomy with a small amount of pneumobilia, unchanged. 5. Left-sided nephrolithiasis. No ureteral stones. No hydronephrosis. 6. Additional findings as described above. ACT 112: Negative or not required by law. Electronically signed by: Joey Archer M.D. 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) E23.0 Hypertension I10 Hypertension type: essential hypertension Scalp lesion L98.9 Type 2 diabetes mellitus, with long-term current use of insulin E11.22; N18.3; Z79.4 Chronic kidney disease stage: stage 3 (moderate) Diabetes mellitus complication detail: with chronic kidney disease Diabetes mellitus complication status: with kidney complications GERD (gastroesophageal reflux disease) K21.9 Central hypothyroidism E03.8 Thoracic compression fracture S22.000A (1) Type 2 diabetes mellitus, with long-term current use of insulin Chronic kidney disease stage: stage 3 (moderate) Diabetes mellitus complication detail: with chronic kidney disease Diabetes mellitus complication status: with kidney complications Qualified Code(s): E11.22 - Type 2 diabetes mellitus with diabetic chronic kidney disease; N18.3 - Chronic kidney disease, stage 3 (moderate); Z79.4 - intermediate manager (current) use of insulin (2) Hypertension Hypertension type: essential hypertension Qualified Code(s): I10 - Essential (primary) hypertension
--- NOTE | 2021-03-24 08:18 | CT Scan Report ---
ABDOMEN AND PELVIS CT WITH IV CONTRAST CT DOSE: 1602.82 mGy.cm HISTORY: Right-sided abdominal pain. Right-sided flank pain. TECHNIQUE: Multiaxial CT images of the abdomen and pelvis were performed following the use of intrave nous contrast. A dose lowering technique was utilized adhering to the principles of ALARA. COMPARISON STUDY: Abdomen and pelvis CT 08/03/2017. FINDINGS: Mild motion artifact. Mild bibasilar subsegmental atelectasis. No pneumoperitoneum. No pneu matosis. Small nondisplaced fracture within the anterior aspect of the T9 vertebral body. Cholecystec dallin with a small amount of pneumobilia, unchanged. No hepatic or splenic masses. The adrenal glands unremarkable. Stable pancreatic atrophy. No retroperitoneal lymphadenopathy. Normal caliber abdominal aorta. The kidneys are suboptimally assessed due to streak artifact from the overlapping arms. There appear to be multiple bilateral small peripelvic renal cysts. There are few subcentimeter hypodense lesions within the kidneys which are technically too small to characterize. There is a stable 1.4 cm hypodense lesion within the interpolar region of the left kidney which is difficult to characterize d ue to the artifact but likely represents a cyst given the long-term stability. There is a punctate st one within the lower pole of the left kidney. No definite right renal calculi. No ureteral calculi. N o hydronephrosis. The bladder is unremarkable. The uterus and bilateral adnexa are within normal limi ts. Colonic diverticulosis. No evidence for acute diverticulitis. No bowel wall thickening or obstruc tion. Normal appendix. IMPRESSION: 1. Small nondisplaced fracture within the anterior aspect of the T9 vertebral body. 2. No bowel wall thickening or obstruction. Normal appendix. 3. Colonic diverticulosis. No evidence for acute diverticulitis. 4. Prior cholecystectomy with a small amount of pneumobilia, unchanged. 5. Left-sided nephrolithiasis. No ureteral stones. No hydronephrosis. 6. Additional findings as described above. ACT 112: Negative or not required by law. Electronically signed by: Joey Archer M.D. 03/24/2021 8:17 AM
[2021-03-24] MEDS ORDERED: HUMULIN R U SC SCH (09:00)
[2021-03-24] MEDS: DESMOPRESSIN ACETATE 0.1 MG TAB PO SCH (09:50)
[2021-03-24] MEDS: CHLORTHALIDONE 25 MG TAB PO SCH (09:50)
[2021-03-24] MEDS: FAMOTIDINE 20 MG TAB PO SCH (09:50)
[2021-03-24] MEDS: DOCUSATE SODIUM 100 MG CAP PO SCH (09:50)
[2021-03-24] MEDS: MIRABEGRON ER 25 MG TAB PO SCH (09:50)
[2021-03-24] MEDS: CALCITRIOL 0.25 MCG CAPSULE PO SCH (09:51)
--- NOTE | 2021-03-24 10:28 | Electrocardiogram Report ---
Test Reason : Blood Pressure : / mmHG Vent. Rate : 105 BPM Atrial Rate : 105 BPM P-R Int : 168 ms QRS Dur : 058 ms QT Int : 346 ms P-R-T Axes : -26 009 053 degrees QTc Int : 457 ms Sinus tachycardia Cannot rule out Anterior infarct (cited on or before 05-JUN-2014) Abnormal ECG When compared with ECG of 30-JUL-2017 08:47, Criteria for Inferior infarct are no longer Present Confirmed by Tunde Michaud ([id number]) on 03/24/2021 10:28:28 AM Referred By: REFERRED SELF Confirmed By:Junior Michaud
--- NOTE | 2021-03-24 12:35 | Pharmacy Report ---
Pharmacy Glycemic Short Note 2 - Date of Service March 24, 2021 - Glycemic Short BSG Results (Last 24 hours): 03/23/21 03/23/21 03/23/21 18:25 21:42 22:58 Glucose 173 H POC Glucose 69 L* 129 H 03/24/21 06:05 Glucose POC Glucose 243 H OUTPATIENT ANTIDIABETIC REGIMEN: * U-500 80 units with breakfast, 100 units with lunch per med list (Per outpatient Endo notes 11/14/20 taking 80 units with breakfast and 80 units with dinner ASSESSMENT: * 85 year old admitted with weakness/abdominal pain/confusion. Over the last several days she has been unable to ambulate. Follows [facility] for diabetes management * Some concern for adrenal insufficiency, typically on hydrocortisone at home. Started on high dose hydrocortisone on admission * Per notes, patient took only 55 units of U-500 yesterday AM and 60 units in afternoon. BSGs trending down to 69 mg/dL last evening. (this was before hydrocortisone was given). Treated for hyperglycemia with amp of dextrose * Fasting BSG elevated at 243 mg/dL. Received 55 units of U-500 yesterday, will increase dose ~20% this AM to account for ongoing steroids. I am hesitant to be any more aggressive as patient also NPO PLAN FOR INPATIENT GLYCEMIC CONTROL: * Hold outpatient oral diabetes medications * Basal insulin * U-500 - 65 units Qam (NPO status/on steroids) * U-500 - * Bolus insulin * NovoLog per scale ACHS or Q6hrs while NPO * Goal Range: Low [] mg/dL - High [] mg/dL * Correction Factor: [] mg/dL/unit * Nutritional / Prandial insulin per carb ratio of 1 unit per [] grams CHO consumed PLAN FOR DISCHARGE: *
[2021-03-24 13:32] LABS: Hematocrit (blood only) 43.7 % (37-47); Hemoglobin 14.6 g/dL (12.0-16.0); Mean Corpuscular Hemoglobin 33.6 pg (25-34); Mean Corpuscular Hgb Conc 33.4 g/dL (32-36); Mean Corpuscular Volume 100.5 fL (80-100); Mean Platelet Volume 12.2 fL (7.4-10.4); Nucleated RBC # (auto) 0.05 K/uL (0-0); Nucleated RBC % (auto) 0.3 %; Platelet Count 244 K/uL (130-400); RDW Coefficient of Variation 15.8 % (11.5-14.5); RDW Standard Deviation 58.4 fL (36.4-46.3); Red Blood Count 4.35 M/uL (4.2-5.4); White Blood Count 14.89 K/uL (4.8-10.8)
[2021-03-24 13:54] LABS: Albumin Level 2.5 gm/dl (3.4-5.0); BUN Creatinine Ratio 16.1 (10-20); Calcium 9.7 mg/dl (8.5-10.1); Creatinine Clr Calc Pharmacy 45.1 ml/min; Est GFR (African American) 48.1 ml/min; Est GFR (Non-African American) 41.5 ml/min
[2021-03-24 13:56] LABS: Albumin Globulin Ratio 0.5 (0.9-2); Bilirubin,Total 0.9 mg/dl (0.2-1); Globulin 5.1 gm/dl (2.5-4.0); Total Protein 7.6 gm/dl (6.4-8.2)
[2021-03-24] MEDS: BETAMETHASONE DIP AUG (DIPROLENE) 0.05% CR 15 GM TUBE EXT SCH ×2 (14:17→20:29)
[2021-03-24 14:35] LABS: Alanine Aminotransferase 98 U/L (12-78); Albumin Level 2.5 gm/dl (3.4-5.0); Aspartate Aminotransferase 68 U/L (15-37); BUN Creatinine Ratio 16.8 (10-20); Bilirubin Direct 0.4 mg/dl (0-0.2); Blood Urea Nitrogen 21 mg/dl (7-18); Calcium 9.6 mg/dl (8.5-10.1); Carbon Dioxide 24 mmol/L (21-32); Chloride 112 mmol/L (98-107); Est GFR (African American) 46.6 ml/min; Est GFR (Non-African American) 40.2 ml/min; Glucose 258 mg/dl (70-99); Potassium 4.1 mmol/L (3.5-5.1); Sodium 145 mmol/L (136-145)
[2021-03-24 14:46] LABS: Alkaline Phosphatase 168 U/L (45-117); Bilirubin,Total 0.9 mg/dl (0.2-1); Phosphorus 2.6 mg/dl (2.5-4.9); Total Protein 7.6 gm/dl (6.4-8.2)
[2021-03-24 14:57] LABS: Folate (Folic Acid) > 20.00 ng/ml (>5.38); Vitamin B12 1764 pg/ml (193-986)
[2021-03-24 15:45] LABS: Thyroid Stimulating Hormone < 0.005 uIu/ml (0.300-4.500)
[2021-03-24] MEDS ORDERED: LORazepam 0.5 MG/1 ML VIAL IV STA (19:46)
[2021-03-24] MEDS: LATANOPROST 0.005% OP SOLN 2.5 ML BTL OP SCH (20:29)
[2021-03-24] MEDS: CEFDINIR 300 MG CAP PO SCH (20:30)
[2021-03-24] MEDS ORDERED: PNEUMOCOCCAL POLYSACCHARIDES 25 MCG/0.5 ML VIAL/SYR IM ONE (22:04)
[2021-03-24 22:12] LABS: Influenza A virus by PCR Negative (Negative); Influenza B virus by PCR Negative (Negative)
[2021-03-25] MEDS: INSULIN ASPART 100 UNITS/ML 3 ML PEN SC SCH ×5 (00:15→21:25)
[2021-03-25] MEDS ORDERED: LORazepam 0.5 MG/1 ML VIAL IV STA ×2 (05:51→22:05)
[2021-03-25] MEDS: HYDROCORTISONE SOD 100 MG in SYRINGE 0 ML IV SCH ×2 (05:58→17:28)
[2021-03-25] MEDS: LEVOTHYROXINE SODIUM 125 MCG TABLET PO SCH (06:01)
[2021-03-25 06:09] LABS: Basophils # (auto) 0.04 K/uL (0-0.2); Basophils % (auto) 0.2 %; Hematocrit (blood only) 40.4 % (37-47); Hemoglobin 13.6 g/dL (12.0-16.0); Immature Granulocytes # (auto) 0.26 K/uL (0.00-0.02); Immature Granulocytes % (auto) 1.2 %; Lymphocytes # (auto) 1.29 K/uL (1.2-3.4); Lymphocytes % (auto) 5.9 %; Mean Corpuscular Hemoglobin 33.7 pg (25-34); Mean Corpuscular Hgb Conc 33.7 g/dL (32-36); Mean Corpuscular Volume 100.2 fL (80-100); Mean Platelet Volume 11.9 fL (7.4-10.4); Monocytes # (auto) 1.66 K/uL (0.11-0.59); Monocytes % (auto) 7.6 %; Neutrophils # (auto) 18.73 K/uL (1.4-6.5); Neutrophils % (auto) 85.1 %; Platelet Count 246 K/uL (130-400); RDW Coefficient of Variation 15.8 % (11.5-14.5); RDW Standard Deviation 57.6 fL (36.4-46.3); Red Blood Count 4.03 M/uL (4.2-5.4); White Blood Count 21.98 K/uL (4.8-10.8)
[2021-03-25] MEDS ORDERED: MICONAZOLE NITRATE POWDER 43 GM EXT PRN (06:15)
[2021-03-25 06:47] LABS: Albumin Level 2.3 gm/dl (3.4-5.0); BUN Creatinine Ratio 24.6 (10-20); Calcium 8.8 mg/dl (8.5-10.1); Creatinine Clr Calc Pharmacy 54.6 ml/min; Est GFR (African American) 60.6 ml/min; Est GFR (Non-African American) 52.3 ml/min; Magnesium 2.4 mg/dl (1.8-2.4); Potassium 2.7 mmol/L (3.5-5.1)
[2021-03-25 06:48] LABS: Albumin Globulin Ratio 0.5 (0.9-2); Bilirubin,Total 0.8 mg/dl (0.2-1); Globulin 4.7 gm/dl (2.5-4.0)
[2021-03-25 06:51] LABS: Estimated Average Glucose 151 mg/dl; Hemoglobin A1C 6.9 % (4.5-5.6)
[2021-03-25] MEDS ORDERED: FUROSEMIDE 20 MG TAB PO SCH (07:00)
[2021-03-25] MEDS: CEFDINIR 300 MG CAP PO SCH (07:52)
[2021-03-25] MEDS: CHLORTHALIDONE 25 MG TAB PO SCH (07:52)
[2021-03-25] MEDS: CALCITRIOL 0.25 MCG CAPSULE PO SCH (07:52)
[2021-03-25] MEDS: DOCUSATE SODIUM 100 MG CAP PO SCH (07:53)
[2021-03-25] MEDS: DESMOPRESSIN ACETATE 0.1 MG TAB PO SCH (07:53)
[2021-03-25] MEDS: MIRABEGRON ER 25 MG TAB PO SCH (07:54)
[2021-03-25] MEDS: FAMOTIDINE 20 MG TAB PO SCH (07:54)
[2021-03-25] MEDS ORDERED: POTASSIUM CHLORIDE CRTAB 20 MEQ TABCR PO STA ×3 (07:55→22:23)
[2021-03-25] MEDS ORDERED: FAMOTIDINE 20MG IV PUSH 20 MG/5 ML SYR IV STA (08:25)
[2021-03-25] MEDS ORDERED: DESMOPRESSIN ACETATE 1 MCG in SODIUM CHLORIDE 0.9% 50 ML IV STA (08:35)
[2021-03-25] MEDS ORDERED: HumuLIN-R U-500 35 UNITS in SYRINGE 0 ML SC SCH (09:00)
[2021-03-25] MEDS ORDERED: HYDROCORTISONE SOD 100 MG in SYRINGE 0 ML IV SCH (09:00)
[2021-03-25] MEDS: BETAMETHASONE DIP AUG (DIPROLENE) 0.05% CR 15 GM TUBE EXT SCH ×2 (09:14→21:36)
[2021-03-25] MEDS: POTASSIUM CHLORIDE / WTR 10 MEQ/100 ML PLCT IV SCH ×2 (09:53→13:30)
[2021-03-25] MEDS: D5W AND 1/2NSS + 20MEQ KCL 20 MEQ/1,000 ML BAG IV SCH ×2 (12:03→22:37)
[2021-03-25 12:50] LABS: BUN Creatinine Ratio 26.6 (10-20); Calcium 9.1 mg/dl (8.5-10.1); Creatinine Clr Calc Pharmacy 51.5 ml/min; Est GFR (African American) 56.5 ml/min; Est GFR (Non-African American) 48.7 ml/min; Potassium 3.5 mmol/L (3.5-5.1)
--- NOTE | 2021-03-25 14:36 | CT Scan Report ---
CT OF THE THORACIC SPINE CLINICAL HISTORY: weakness, T9 fracture on prior imaging COMPARISON STUDY: MRI of the thoracic spine September 24, 2005. CT of the abdomen and pelvis March 23. TECHNIQUE: Helical axial images of the thoracic spine were obtained. Sagittal and coronal reconstru ctions were viewed. Automated exposure control was utilized for the study. A dose lowering techniqu e was utilized adhering to the principles of ALARA. FINDINGS: Visualized portions of the lungs are suboptimally assessed due to motion artifact. There is a trace right pleural effusion with associated subsegmental atelectasis. There is exaggerated kyphos is of the thoracic spine. No suspicious osseous lesions are noted. There is extensive osteophytosis o f the thoracic spine as well as visualized portions of the lower cervical spine. No acute fractures a re identified within visualized portions of the ribs. The central canal and neural foramen are subopt imally assessed by CT. There is an acute appearing nondisplaced oblique fracture extending through th e mid to inferior aspect of the T9 vertebral body. This fracture extends to the inferior endplate of T9. No extension into the posterior elements is identified. There is an additional acute appearing tr ansverse fracture through the anterior osteophytes at the T12-L1 level. This may extend through the d isc space. No extension into the posterior elements is identified. No additional thoracic spine fract ures are present. Paravertebral soft tissues are unremarkable. There is no associated paravertebral e abby. IMPRESSION: Acute appearing nondisplaced oblique fracture through the mid to inferior T9 vertebral body. Addition al acute appearing transverse fracture through anterior osteophytes at the T12-L1 level which may ext end through the disc space. These fractures do not appear to extend into the posterior elements. [place] carol, stability of these fractures is difficult to assess by imaging given extensive anterior osteophy tosis of the thoracic spine. ACT 112: Negative or not required by law. Electronically signed by: Jhoan Mena M.D. 03/25/2021 2:35 PM
--- NOTE | 2021-03-25 17:08 | Hospitalist Progress Note ---
Date of Service March 25, 2021 Assessment & Plan (1) Generalized weakness: Plan: Etiology uncertain. 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 In August of 2013, she underwent surgery for a meningioma. Yoav developed seizures post operatively. 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 This was complicated by intracranial hemorrhage post-operatively . She has an unhealed wound on her scalp following repeat craniotomy for which she is maintained on chronic suppressive antibiotics. Post-operative recovery was complicated by a fall at [facility] which resulted in cervical spine fractures. At this time, Yoav is chronically wheelchair dependent. She requires 24 hour assistance from a caregiver which includes assistance with most every activity to daily living." Reportedly weak, more confused, ambulatory dysfunction and abdominal pain for the last few days per but hadn't been sleeping x 3 days and this has happened in the past. Ddx to include adrenal insufficiency (no hypotension), infection (chronic elevations WBC), dehydration (reported less oral intake per outpatient notes, suspect advancement of dementia as well) WBC elevated 2nd to steroid use likely Ammonia wnl Folate >20 B12 1764 Procal 0.13 -- is to be on chronic suppressive therapy w/ cefdinir 300mg daily for scalp not ordered on admit, resumed TSH undetectable * -- unreliable in patient with panhypopituitarism. Free T4 wnl 1.42 and continued usual Synthroid * --> Follows with Dr. lopez. Discussed on phone, patient not great at baseline from mental status standpoint. Rec ensuring to continue Ms Fix DDAVP CXR negative CTA/P Small nondisplaced fracture within the anterior aspect of the T9 vertebral body. No bowel wall thickening or obstruction. Normal appendix. 3. Colonic diverticulosis. No evidence for acute diverticulitis. 4. Prior cholecystectomy with a small amount of pneumobilia, unchanged. 5. Left-sided nephrolithiasis. No ureteral stones. No hydronephrosis CT Head . Study markedly compromised by motion artifact. No acute intracranial findings identified. 4.2 x 2.3 cm mass-like abnormality overlying the right frontal craniotomy. This is suboptimally assessed on this exam given motion artifact. This is indeterminate and recurrent meningioma with extracranial extension cannot be excluded. Findings discussed with Dr. Newsome at time of dictation. * ??Per dermatology notes outpatient, was told not to touch this mass and to leave it alone. Does have hx BCC s/p Mohs above R eye * Check MRI Brain pituitary w/wo as previously ordered by endocrinology outpatient but this was never performed. ? if "fungating mass actually a BCC?" * --> has not been obtained yet due to patient not able to cooperate for imaging. Holding off for now as more awake/alert and stated she got better sleep CT Thoracic spine with acute nondisplaced fx T9, additional findings at T12-L1 as below * Check PTH, Vit D -- pending * On calcitriol (may need held but will also check Vit D in AM) * Ortho on consult PT/OT evals ordered --> HAD GOTTEN UP OUT OF BED WITH WALKER AND STANDING (WHEELCHAIR DEPENDENT AT BASELINE) Fall precautions Metabolic Acidosis Also started D5 1/2NS +20K @ 100cc/hr Potassium IV and PO replacement for K 2.7, likely from insulin use/adrenal insuff Continue hydrocortisone for today, reduce back to prior values Skipped AM meds due to compliance and desmopressin ordered IV x 1 today Pharmacy managing insulin --> BSGs improved but starting to increase -- will alert pharmacy of D5 in IVF for further adjustments (20% dose reduction as hadn't been eating much) and continue to monitor Continue to monitor labs/electrolyte replacement (2) 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 Patient is to take hydrocortisone - uncertain when last dose was taken or if she increased her dosing in light of current illness. Blood pressure is stable and electrolytes (K and Na) are unremarkable Continue Hydrocortisone 100mg IV q 6hrs - assess symptoms for improvement -- alert but not oriented (appears baseline) --> consider switching back to usual hydrocortisone tomorrow -Continue Desmopressin for diabetes insipidus (got IV today as refused AM pills) -Continue Synthroid at usual dose (she missed this, could give IV today but ok if takes tomorrow-- if any issues will provide w/ IV) Checking MRI pituitary as above -- may need to decline given compliance/machine availability as non-urgent issue (3) Thoracic compression fracture: Plan: On imaging Have not reached but CM was able to discuss and patient had been complaining of "knot in back" and noted fracture at T9 --> image thoracic spine for further investigation -- CT Thoracic spine * Acute appearing nondisplaced oblique fracture through the mid to inferior T9 vertebral body. Additional acute appearing transverse fracture through anterior osteophytes at the T12-L1 level which may extend through the disc space. These fractures do not appear to extend into the posterior elements. However, stability of these fractures is difficult to assess by imaging given extensive anterior osteophytosis of the thoracic spine. Ortho consult ?brace by orthotics PTH/vit D pending (4) Hypertension: Plan: Chronic. Blood pressure elevated 182/109 on admission -Continue Chlorthalidone (RN administered 25mg on admit on accident --> 12.5mg ordered in system) BP currently 117/67 (5) Scalp lesion: Plan: Known lesion secondary to meningioma extraction, poor wound healing and exposed mesh. Does have some bleeding today, no evidence of infection but concerns given hx bcc--? extension? meningioma on imaging. MRI not yet done ?consult for biopsy although was told not to in the past -- said this was was to be left alone and that she takes cefdinir daily for suppressive therapy (6) Type 2 diabetes mellitus, with long-term current use of insulin: Plan: Glycemic management consultation. Patient on U500 at home. Hypoglycemic in the ER -Blood sugar checks q 2 hours PHARMACY ON CONSULTED -- PER DR LOPEZ, VERY DIFFICULT TO CONTROL ON OTHER AGENTS THAN U-500. discussed with pharmacy --> BSGS increasing but now improved and discussed with pharmacy changes to steroids and addition of D5 to IVF --> 20% reduction in U-500 today but also has ISS if needed. Had dose this AM cut significantly as she had not been eating much. Will continue to monitor (7) GERD (gastroesophageal reflux disease): Plan: Chronic -Pepcid 20mg po qAM while inpatient (gave IVP 03/25) (8) Central hypothyroidism: Plan: Chronic -Continue Synthroid (9) Hypokalemia: Plan: K 2.7 on AM labs -- PO/IV and added to IVF. Mag 2.4 2nd to insulin/adrenal insuff/poor PO intake BMP in AM (10) Hypernatremia: Plan: Hx DI, Na 149 on AM labs --> IV DDAVP given, repeat 146 IVF as above, continue DDAVP Continue to monitor BMP Plan: Ppx - Lovenox SQ while inpatient Code Status _--- Ms FIX IS CONFIRMED LEVEL 1 with on phone 03/24 Continued inpatient stay Continue PT/OT Tx electrolyte abnormalities as above -- will repeat BMP this evening Admission and Anticipated Discharge Date Admission Date: March 23, 2021 Supervising Physician Co-Signing Physician Notes chart reviewed and case d/w L Elisabeth PAC. agree w above Subjective patient emma this morning was just up working with PT and stood up (wheelchair at baseline) alert and oriented to person but not place/time. stated this happens when she doesn't sleep but admits she got good sleep last night. asked about back pain -- denied but was slightly tender to palpation she did admit her belly had been hurting the days past but no pain today on exam eating/drinking denies cp/sob/abd pain/n/v/d at this time. Review of Systems Review of Systems: All systems reviewed & are unremarkable except as noted in HPI & below Physical Exam Physical Exam: General: patient awake, alert to her name but not place/time/event or situation, sitting up in chair at this time Skin: warm, dry, intact, venous stasis changes present on bilateral LE with skin flaking HEENT: NC/AT, PERRL, EOMI, anicteric sclera, conjunctiva without injection, external ear normal to inspection and nontender, nares patent, mucus membranes slightly dry, dentition intact, no oropharyngeal lesions, neck supple, trachea midline, no LAD, no thyromegaly, no JVD, LARGE FUNGATING mass present on central frontal scalp - BLEEDING NOTED TO CAUSE COVERING, NONTENDER TO TOUCH Heart: +S1/S2, regular, 84BPM, no m/r/g, 1-2+ b/l LE edema, calves equal in size nontender Lungs: no rales/rhonchi/wheezes, diminished in the bases, poor inspiratory effort when asked to take a deep breath, stable on room air Abd: +hypoactive, soft, non-distended, not focally tender although yelling out when touched anywhere, Ext: cool, 2+ pulses in UE/LE bilaterally, no clubbing/cyanosis, 2+ bilateral LE edema tender to palpation across thoracic spine Neuro: alert and oriented to self but not place/time/situation. generalized weakness now slightly improved (wheelchair at baseline but was witnessed standing up with walker with therapy today) Results & Data Results & Data ([facility]) Vital Signs (Past 12 Hours) Vital Signs Temp Pulse Pulse Resp BP Pulse Ox 03/25/21 15:39 36.5 C 74 18 117/67 96 03/25/21 11:00 36.3 C L 88 20 130/77 90 03/25/21 07:24 83 03/25/21 07:00 36.4 C L 86 21 138/82 91 Laboratory Results 03/25/21 03/25/21 03/25/21 Range/Units 16:36 12:18 12:00 WBC (4.8-10.8) K/uL RBC (4.2-5.4) M/uL Hgb (12.0-16.0) g/dL Hct (37-47) % MCV (80-100) fL MCH (25-34) pg MCHC (32-36) g/dL RDW Std Deviation (36.4-46.3) fL RDW Coeff of Fritz (11.5-14.5) % Plt Count (130-400) K/uL MPV (7.4-10.4) fL Immature Gran % (Auto) % Neut % (Auto) % Lymph % (Auto) % [place] % (Auto) % Eos % (Auto) % Baso % (Auto) % Neut # (Auto) (1.4-6.5) K/uL Lymph # (Auto) (1.2-3.4) K/uL [place] # (Auto) (0.11-0.59) K/uL Eos # (Auto) (0-0.5) K/uL Baso # (Auto) (0-0.2) K/uL Immature Gran # (Auto) (0.00-0.02) K/uL Sodium 146 H (136-145) mmol/L Potassium 3.5 D (3.5-5.1) mmol/L Chloride 112 H (98-107) mmol/L Carbon Dioxide 29 (21-32) mmol/L Anion Gap 5.0 (3-11) BUN 28 H (7-18) mg/dl Creatinine 1.05 (0.6-1.2) mg/dl Est Cr Clr Drug Dosing 51.5 ml/min Est GFR ( Amer) 56.5 ml/min Est GFR (Non-Af Amer) 48.7 ml/min BUN/Creatinine Ratio 26.6 H (10-20) Glucose 186 H (70-99) mg/dl POC Glucose 211 H 168 H (70-99) mg/dl Estimat Average Glucose mg/dl Hemoglobin A1c (4.5-5.6) % Calcium 9.1 (8.5-10.1) mg/dl Magnesium (1.8-2.4) mg/dl Total Bilirubin (0.2-1) mg/dl AST (15-37) U/L ALT (12-78) Alkaline Phosphatase (45-117) U/L Total Protein (6.4-8.2) gm/dl Albumin (3.4-5.0) gm/dl Globulin (2.5-4.0) gm/dl Albumin/Globulin Ratio (0.9-2) 25-OH Vitamin D Total PTH Intact Specimen Hemolysis Influ A Molecular Assay (Negative) Influ B Molecular Assay (Negative) 03/25/21 03/25/21 03/25/21 Range/Units 07:58 06:07 05:51 WBC (4.8-10.8) K/uL RBC (4.2-5.4) M/uL Hgb (12.0-16.0) g/dL Hct (37-47) % MCV (80-100) fL MCH (25-34) pg MCHC (32-36) g/dL RDW Std Deviation (36.4-46.3) fL RDW Coeff of Fritz (11.5-14.5) % Plt Count (130-400) K/uL MPV (7.4-10.4) fL Immature Gran % (Auto) % Neut % (Auto) % Lymph % (Auto) % [place] % (Auto) % Eos % (Auto) % Baso % (Auto) % Neut # (Auto) (1.4-6.5) K/uL Lymph # (Auto) (1.2-3.4) K/uL [place] # (Auto) (0.11-0.59) K/uL Eos # (Auto) (0-0.5) K/uL Baso # (Auto) (0-0.2) K/uL Immature Gran # (Auto) (0.00-0.02) K/uL Sodium (136-145) mmol/L Potassium (3.5-5.1) mmol/L Chloride (98-107) mmol/L Carbon Dioxide (21-32) mmol/L Anion Gap (3-11) BUN (7-18) mg/dl Creatinine (0.6-1.2) mg/dl Est Cr Clr Drug Dosing ml/min Est GFR ( Amer) ml/min Est GFR (Non-Af Amer) ml/min BUN/Creatinine Ratio (10-20) Glucose (70-99) mg/dl POC Glucose 104 H 101 H (70-99) mg/dl Estimat Average Glucose mg/dl Hemoglobin A1c (4.5-5.6) % Calcium (8.5-10.1) mg/dl Magnesium (1.8-2.4) mg/dl Total Bilirubin (0.2-1) mg/dl AST (15-37) U/L ALT (12-78) Alkaline Phosphatase (45-117) U/L Total Protein (6.4-8.2) gm/dl Albumin (3.4-5.0) gm/dl Globulin (2.5-4.0) gm/dl Albumin/Globulin Ratio (0.9-2) 25-OH Vitamin D Total Pending PTH Intact Specimen Hemolysis Influ A Molecular Assay (Negative) Influ B Molecular Assay (Negative) 03/25/21 03/25/21 03/25/21 Range/Units 05:51 05:51 05:51 WBC (4.8-10.8) K/uL RBC (4.2-5.4) M/uL Hgb (12.0-16.0) g/dL Hct (37-47) % MCV (80-100) fL MCH (25-34) pg MCHC (32-36) g/dL RDW Std Deviation (36.4-46.3) fL RDW Coeff of Fritz (11.5-14.5) % Plt Count (130-400) K/uL MPV (7.4-10.4) fL Immature Gran % (Auto) % Neut % (Auto) % Lymph % (Auto) % [place] % (Auto) % Eos % (Auto) % Baso % (Auto) % Neut # (Auto) (1.4-6.5) K/uL Lymph # (Auto) (1.2-3.4) K/uL [place] # (Auto) (0.11-0.59) K/uL Eos # (Auto) (0-0.5) K/uL Baso # (Auto) (0-0.2) K/uL Immature Gran # (Auto) (0.00-0.02) K/uL Sodium 149 H (136-145) mmol/L Potassium 2.7 L D (3.5-5.1) mmol/L Chloride 114 H (98-107) mmol/L Carbon Dioxide 29 (21-32) mmol/L Anion Gap 7.0 (3-11) BUN 24 H (7-18) mg/dl Creatinine 0.99 (0.6-1.2) mg/dl Est Cr Clr Drug Dosing 54.6 ml/min Est GFR ( Amer) 60.6 ml/min Est GFR (Non-Af Amer) 52.3 ml/min BUN/Creatinine Ratio 24.6 H (10-20) Glucose 76 (70-99) mg/dl POC Glucose (70-99) mg/dl Estimat Average Glucose 151 mg/dl Hemoglobin A1c 6.9 H (4.5-5.6) % Calcium 8.8 (8.5-10.1) mg/dl Magnesium 2.4 (1.8-2.4) mg/dl Total Bilirubin 0.8 (0.2-1) mg/dl AST 61 H (15-37) U/L ALT 81 H (12-78) Alkaline Phosphatase 146 H (45-117) U/L Total Protein 7.0 (6.4-8.2) gm/dl Albumin 2.3 L (3.4-5.0) gm/dl Globulin 4.7 H (2.5-4.0) gm/dl Albumin/Globulin Ratio 0.5 L (0.9-2) 25-OH Vitamin D Total PTH Intact Pending Specimen Hemolysis Influ A Molecular Assay (Negative) Influ B Molecular Assay (Negative) 03/25/21 03/25/21 03/24/21 Range/Units 05:51 00:13 21:38 WBC 21.98 H (4.8-10.8) K/uL RBC 4.03 L (4.2-5.4) M/uL Hgb 13.6 (12.0-16.0) g/dL Hct 40.4 (37-47) % MCV 100.2 H (80-100) fL MCH 33.7 (25-34) pg MCHC 33.7 (32-36) g/dL RDW Std Deviation 57.6 H (36.4-46.3) fL RDW Coeff of Fritz 15.8 H (11.5-14.5) % Plt Count 246 (130-400) K/uL MPV 11.9 H (7.4-10.4) fL Immature Gran % (Auto) 1.2 % Neut % (Auto) 85.1 % Lymph % (Auto) 5.9 % [place] % (Auto) 7.6 % Eos % (Auto) 0.0 % Baso % (Auto) 0.2 % Neut # (Auto) 18.73 H (1.4-6.5) K/uL Lymph # (Auto) 1.29 (1.2-3.4) K/uL [place] # (Auto) 1.66 H (0.11-0.59) K/uL Eos # (Auto) 0.00 (0-0.5) K/uL Baso # (Auto) 0.04 (0-0.2) K/uL Immature Gran # (Auto) 0.26 H (0.00-0.02) K/uL Sodium (136-145) mmol/L Potassium (3.5-5.1) mmol/L Chloride (98-107) mmol/L Carbon Dioxide (21-32) mmol/L Anion Gap (3-11) BUN (7-18) mg/dl Creatinine (0.6-1.2) mg/dl Est Cr Clr Drug Dosing ml/min Est GFR ( Amer) ml/min Est GFR (Non-Af Amer) ml/min BUN/Creatinine Ratio (10-20) Glucose (70-99) mg/dl POC Glucose 84 (70-99) mg/dl Estimat Average Glucose mg/dl Hemoglobin A1c (4.5-5.6) % Calcium (8.5-10.1) mg/dl Magnesium (1.8-2.4) mg/dl Total Bilirubin (0.2-1) mg/dl AST (15-37) U/L ALT (12-78) Alkaline Phosphatase (45-117) U/L Total Protein (6.4-8.2) gm/dl Albumin (3.4-5.0) gm/dl Globulin (2.5-4.0) gm/dl Albumin/Globulin Ratio (0.9-2) 25-OH Vitamin D Total PTH Intact Specimen Hemolysis Influ A Molecular Assay Negative (Negative) Influ B Molecular Assay Negative (Negative) 03/24/21 03/24/21 Range/Units 19:01 13:19 WBC (4.8-10.8) K/uL RBC (4.2-5.4) M/uL Hgb (12.0-16.0) g/dL Hct (37-47) % MCV (80-100) fL MCH (25-34) pg MCHC (32-36) g/dL RDW Std Deviation (36.4-46.3) fL RDW Coeff of Fritz (11.5-14.5) % Plt Count (130-400) K/uL MPV (7.4-10.4) fL Immature Gran % (Auto) % Neut % (Auto) % Lymph % (Auto) % [place] % (Auto) % Eos % (Auto) % Baso % (Auto) % Neut # (Auto) (1.4-6.5) K/uL Lymph # (Auto) (1.2-3.4) K/uL [place] # (Auto) (0.11-0.59) K/uL Eos # (Auto) (0-0.5) K/uL Baso # (Auto) (0-0.2) K/uL Immature Gran # (Auto) (0.00-0.02) K/uL Sodium 145 D (136-145) mmol/L Potassium (3.5-5.1) mmol/L Chloride (98-107) mmol/L Carbon Dioxide (21-32) mmol/L Anion Gap (3-11) BUN (7-18) mg/dl Creatinine (0.6-1.2) mg/dl Est Cr Clr Drug Dosing ml/min Est GFR ( Amer) ml/min Est GFR (Non-Af Amer) ml/min BUN/Creatinine Ratio (10-20) Glucose (70-99) mg/dl POC Glucose 109 H (70-99) mg/dl Estimat Average Glucose mg/dl Hemoglobin A1c (4.5-5.6) % Calcium (8.5-10.1) mg/dl Magnesium (1.8-2.4) mg/dl Total Bilirubin (0.2-1) mg/dl AST (15-37) U/L ALT (12-78) Alkaline Phosphatase (45-117) U/L Total Protein (6.4-8.2) gm/dl Albumin (3.4-5.0) gm/dl Globulin (2.5-4.0) gm/dl Albumin/Globulin Ratio (0.9-2) 25-OH Vitamin D Total PTH Intact Specimen Hemolysis Influ A Molecular Assay (Negative) Influ B Molecular Assay (Negative) Diagnostic Findings Thoracic Spine CT 03/24/21 20:15 CT OF THE THORACIC SPINE CLINICAL HISTORY: weakness, T9 fracture on prior imaging COMPARISON STUDY: MRI of the thoracic spine September 24, 2005. CT of the abdomen and pelvis March 23, 2021. TECHNIQUE: Helical axial images of the thoracic spine were obtained. Sagittal and coronal reconstructions were viewed. Automated exposure control was utilized for the study. A dose lowering technique was utilized adhering to the principles of ALARA. FINDINGS: Visualized portions of the lungs are suboptimally assessed due to motion artifact. There is a trace right pleural effusion with associated subsegmental atelectasis. There is exaggerated kyphosis of the thoracic spine. No suspicious osseous lesions are noted. There is extensive osteophytosis of the thoracic spine as well as visualized portions of the lower cervical spine. No acute fractures are identified within visualized portions of the ribs. The central canal and neural foramen are suboptimally assessed by CT. There is an acute appearing nondisplaced oblique fracture extending through the mid to inferior aspect of the T9 vertebral body. This fracture extends to the inferior endplate of T9. No extension into the posterior elements is identified. There is an additional acute appearing transverse fracture through the anterior osteophytes at the T12-L1 level. This may extend through the disc space. No extension into the posterior elements is identified. No additional thoracic spine fractures are present. Paravertebral soft tissues are unremarkable. There is no associated paravertebral edema. IMPRESSION: Acute appearing nondisplaced oblique fracture through the mid to inferior T9 vertebral body. Additional acute appearing transverse fracture through anterior osteophytes at the T12-L1 level which may extend through the disc space. These fractures do not appear to extend into the posterior elements. However, stability of these fractures is difficult to assess by imaging given extensive anterior osteophytosis of the thoracic spine. ACT 112: Negative or not required by law. Electronically signed by: Jhoan Mena M.D. 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) E23.0 Thoracic compression fracture S22.000A Hypertension I10 Hypertension type: essential hypertension Scalp lesion L98.9 Type 2 diabetes mellitus, with long-term current use of insulin E11.22; N18.3; Z79.4 Chronic kidney disease stage: stage 3 (moderate) Diabetes mellitus complication detail: with chronic kidney disease Diabetes mellitus complication status: with kidney complications GERD (gastroesophageal reflux disease) K21.9 Central hypothyroidism E03.8 Hypokalemia E87.6 Hypernatremia E87.0 (1) Type 2 diabetes mellitus, with long-term current use of insulin Chronic kidney disease stage: stage 3 (moderate) Diabetes mellitus complication detail: with chronic kidney disease Diabetes mellitus complication status: with kidney complications Qualified Code(s): E11.22 - Type 2 diabetes mellitus with diabetic chronic kidney disease; N18.3 - Chronic kidney disease, stage 3 (moderate); Z79.4 - nursing home (current) use of insulin (2) Hypertension Hypertension type: essential hypertension Qualified Code(s): I10 - Essential (primary) hypertension
[2021-03-25 18:57] LABS: BUN Creatinine Ratio 23.5 (10-20); Creatinine Clr Calc Pharmacy 38.1 ml/min; Est GFR (African American) 39.2 ml/min; Est GFR (Non-African American) 33.8 ml/min
[2021-03-25] MEDS: ENOXAPARIN INJ 40 MG/0.4 ML SYR SQ SCH (21:37)
[2021-03-25] MEDS: LATANOPROST 0.005% OP SOLN 2.5 ML BTL OP SCH (21:37)
[2021-03-26] MEDS ORDERED: LORazepam 0.5 MG/1 ML VIAL IV STA (01:37)
--- NOTE | 2021-03-26 05:23 | Communication Note ---
Date of Service: March 26, 2021 Subjective: Nursing notified me that the patient was agitated and trying to get out of bed early in the night and responded well to Ativan the night prior and twice overnight. I was notified later around 5AM that the patient had picked part of the dark mass from her head and that it was bleeding. She had also pulled out her IV. Objective: BP 148/66 HR 70 RR 18 T 36.5 O2 93 - confused - black mass with crusting, small amount of oozing dark blood Labs - blood culture with gram positive cocci A/P: Agitation - 1-1 available Head mass/ dried blood - nursing bandaged as this seems consistent with crusted blood over he open wound - holding off at this time on head imaging as prior imaging had significant artifact and likely would not change release manager at this time Gram positive cocci in blood culture pt on omnicef chronically - holding off on adding antibiotic coverage overnight as patient is afebrile and hemodynamically stable
[2021-03-26] MEDS: HYDROCORTISONE SOD 100 MG in SYRINGE 0 ML IV SCH (06:06)
[2021-03-26] MEDS: LEVOTHYROXINE SODIUM 125 MCG TABLET PO SCH (06:07)
[2021-03-26 06:12] LABS: Hematocrit (blood only) 40.3 % (37-47); Hemoglobin 13.6 g/dL (12.0-16.0); Mean Corpuscular Hemoglobin 33.6 pg (25-34); Mean Corpuscular Hgb Conc 33.7 g/dL (32-36); Mean Corpuscular Volume 99.5 fL (80-100); Mean Platelet Volume 12.1 fL (7.4-10.4); Nucleated RBC # (auto) 0.06 K/uL (0-0); Nucleated RBC % (auto) 0.3 %; Platelet Count 226 K/uL (130-400); RDW Coefficient of Variation 15.7 % (11.5-14.5); Red Blood Count 4.05 M/uL (4.2-5.4); White Blood Count 18.79 K/uL (4.8-10.8)
[2021-03-26 06:46] LABS: Albumin Globulin Ratio 0.5 (0.9-2); Albumin Level 2.3 gm/dl (3.4-5.0); BUN Creatinine Ratio 31.1 (10-20); Bilirubin,Total 0.6 mg/dl (0.2-1); Calcium 8.5 mg/dl (8.5-10.1); Creatinine Clr Calc Pharmacy 52.5 ml/min; Est GFR (African American) 57.8 ml/min; Est GFR (Non-African American) 49.9 ml/min; Globulin 4.5 gm/dl (2.5-4.0); Magnesium 2.3 mg/dl (1.8-2.4); Total Protein 6.8 gm/dl (6.4-8.2)
[2021-03-26] MEDS: BETAMETHASONE DIP AUG (DIPROLENE) 0.05% CR 15 GM TUBE EXT SCH ×2 (07:34→21:53)
[2021-03-26] MEDS: CALCITRIOL 0.25 MCG CAPSULE PO SCH (07:35)
[2021-03-26] MEDS: CEFDINIR 300 MG CAP PO SCH (07:35)
[2021-03-26] MEDS: DESMOPRESSIN ACETATE 0.1 MG TAB PO SCH (07:36)
[2021-03-26] MEDS: CHLORTHALIDONE 25 MG TAB PO SCH (07:36)
[2021-03-26] MEDS: MIRABEGRON ER 25 MG TAB PO SCH (07:36)
[2021-03-26] MEDS: FAMOTIDINE 20 MG TAB PO SCH (07:36)
[2021-03-26] MEDS: DOCUSATE SODIUM 100 MG CAP PO SCH (07:37)
--- NOTE | 2021-03-26 08:02 | Hospitalist Progress Note ---
Date of Service March 26, 2021 Assessment & Plan (1) Generalized weakness: Plan: Etiology uncertain. 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 In August of 2013, she underwent surgery for a meningioma. Yoav developed seizures post operatively. 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 This was complicated by intracranial hemorrhage post-operatively . She has an unhealed wound on her scalp following repeat craniotomy for which she is maintained on chronic suppressive antibiotics. Post-operative recovery was complicated by a fall at [facility] which resulted in cervical spine fractures. At this time, Yoav is chronically wheelchair dependent. She requires 24 hour assistance from a caregiver which includes assistance with most every activity to daily living." Ddx to include adrenal insufficiency (no hypotension), infection (chronic elevations WBC), dehydration (reported less oral intake per outpatient notes, suspect advancement of dementia as well) Reportedly weak, more confused, ambulatory dysfunction and abdominal pain for the last few days per but hadn't been sleeping x 3 days and this has happened in the past--> got some sleep but then ing at night with picking at her fungating lesion/bleeding and restraints ordered (since d/c'd) WBC elevated 2nd to steroid use likely however bcx pending Ammonia wnl Folate >20 B12 1764 Procal 0.13 -- is to be on chronic suppressive therapy w/ cefdinir 300mg daily for scalp not ordered on admit, resumed TSH undetectable * -- unreliable in patient with panhypopituitarism. Free T4 wnl 1.42 and continued usual Synthroid. T3 in AM. Follows with Dr Fung CXR negative CTA/P Small nondisplaced fracture within the anterior aspect of the T9 vertebral body. No bowel wall thickening or obstruction. Normal appendix. 3. Colonic diverticulosis. No evidence for acute diverticulitis. 4. Prior cholecystectomy with a small amount of pneumobilia, unchanged. 5. Left-sided nephrolithiasis. No ureteral stones. No hydronephrosis CT Head . Study markedly compromised by motion artifact. No acute intracranial findings identified. 4.2 x 2.3 cm mass-like abnormality overlying the right frontal craniotomy. This is suboptimally assessed on this exam given motion artifact. This is indeterminate and recurrent meningioma with extracranial extension cannot be excluded. Findings discussed with Dr. Newsome at time of dictation. * ??Per dermatology notes outpatient, was told not to touch this mass and to leave it alone. Does have hx BCC s/p Mohs above R eye * Check MRI Brain pituitary w/wo as previously ordered by endocrinology outpatient but this was never performed. ? if "fungating mass actually a BCC?" * --> has not been obtained yet due to patient not able to cooperate for imaging and doubt currently that she would be able to tolerate this but if able would obtain--> Holding off for now as more awake/alert and stated she got better sleep CT Thoracic spine with acute nondisplaced fx T9, additional findings at T12-L1 as below * Check PTH, Vit D -- pending * On calcitriol (may need held but will also check Vit D in AM) * Ortho on consult PT/OT evals ordered --> HAD GOTTEN UP OUT OF BED WITH WALKER AND STANDING (WHEELCHAIR AT BASELINE) 03/25 Fall precautions ordered Continue to monitor labs/electrolyte replacement (2) Scalp lesion: Plan: Known lesion secondary to meningioma extraction, poor wound healing and exposed mesh. Does have some bleeding today, no evidence of infection but concerns given hx bcc--? extension? meningioma on imaging. MRI not yet done ?consult for biopsy although was told not to in the past -- said this was was to be left alone and that she takes cefdinir daily for suppressive therapy Had been picking at this/bleeding overnight 03/25-03/26 and mitts ordered, covered in bandage. mitts since removed and patient has not picked at this since. 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 Patient is to take hydrocortisone - uncertain when last dose was taken or if she increased her dosing in light of current illness. Blood pressure is stable and electrolytes -- replacement of electrolytes as needed-- had not taken prior meds and had hypokalemia/hypernatremia -- improving Metabolic Encephalopathy --2nd to lack of sleep/possible medication non- compliance -- IVF D5 1/2NS +K ordered, K replacement for K2.7. Had skipped her AM meds AM 03/25 and IV ordered for those that could be replaced -- took pills today without issues and will monitor Switched back to her usual Hydrocortisone 15mg QAM, 5mg at noon Got DDAVP IV 03/25 as skipped AM meds d/t compliance -- did take today. Consider increased dose if needed MRI pituitary if able to tolerate -- may not be able to stay still for adequate imaging given artifact on imaging on admission (4) History of basal cell carcinoma: Plan: hx MOhs to above eye given fungating mass (although told to leave alone by previous providers), ?concern for this actually being such vs extension of recurrent meningioma w/ extracranial extension not excluded on CT on admit -- not noted 2016), suboptimally assessed given artifact (5) Thoracic compression fracture: Plan: On imaging Have not reached but CM was able to discuss and patient had been complaining of "knot in back" and noted fracture at T9 * --> image thoracic spine for further investigation CT Thoracic spine * Acute appearing nondisplaced oblique fracture through the mid to inferior T9 vertebral body. Additional acute appearing transverse fracture through anterior osteophytes at the T12-L1 level which may extend through the disc space. These fractures do not appear to extend into the posterior elements. However, stability of these fractures is difficult to assess by imaging given extensive anterior osteophytosis of the thoracic spine. Ortho consult -- would not pursue surgery in patient with multiple co- morbidities * --> Suggest f/u CT scan in 1 week to assess fracture patterns -- if no changes would continue activity as tolerated * ?brace by orthotics if able to tolerate when out of bed but doubt patient able to tolerate/would be compliant with such Tylenol, lidocaine patch, tramadol prn pain -- denies pain when asked at this time, not overly tender on exam PTH/vit D pending (6) Hypertension: Plan: Chronic. Blood pressure elevated 182/109 on admission * Continue Chlorthalidone * Of note, RN administered 25mg on admission on accident * Continue 12.5mg daily as taking MODELING AND SIMULATION ANALYST BP currently 137/84 (7) Type 2 diabetes mellitus, with long-term current use of insulin: Plan: Glycemic management consultation. Patient on U500 at home. Hypoglycemic in the ER -Blood sugar checks q 2 hours PHARMACY ON CONSULT -- PER DR FUNG, VERY DIFFICULT TO CONTROL ON OTHER AGENTS THAN U-500. discussed with pharmacy --> Increased insulin today as BSGs creeping up (previous U-500 reduction may have been too much as patient started eating/drinking yesterday) Monitor BSGs (8) GERD (gastroesophageal reflux disease): Plan: Pepcid 20mg po qAM while inpatient (gave IVP 03/25) (9) Central hypothyroidism: Plan: Chronic -Continue Synthroid TSH undetectable (not reliable with above), however T4 wnl 1.42. Checking T3 in AM (10) Hypokalemia: Plan: K 2.7 on AM labs -- PO/IV and added to IVF. Mag 2.4 2nd to insulin/extra chlorthalidone on admission/poor PO intake/above copious replacement and K now wnl at 4.0 on AM labs Continue to monitor (11) Hypernatremia: Plan: Hx DI, Na 149 on AM labs --> IV DDAVP given, repeat 146 then went to 145 but back up to 146 IVF as above, now d/c'd Consider increased dose DDAVP given already with poor PO intake and underlying DI as above Continue to monitor (12) Dementia: Plan: prior admission diagnosis seems to have some issues at night as above will order low dose seroquel HS for sundowning/agitation, monitor response Plan: Ppx - Lovenox SQ while inpatient Code Status _--- Ms FIX IS CONFIRMED LEVEL 1 with on phone 03/24 Continued inpatient stay-- Tx electrolyte abnormalities as above Continue PT/OT Add low dose Seroquel HS ?possible biopsy of tissue from fungating lesion for eval given the hx BCC s/p MOhs, however multiple providers documenting that this is to be left alone as titanium mesh exposed from prior cranio, although appears enlarged compared to previous pictures in system --> consider c/w derm in AM if able to biopsy Admission and Anticipated Discharge Date Admission Date: March 23, 2021 Supervising Physician Co-Signing Physician Notes chart reviewed and case d/w Judy Barber PAC. agree w above Subjective combative overnight but improved today ?if sundowning /dementia also playing a role had been ordered mits but these have been since discontinued -- she had been picking at forehead lesion causing bleeding which has been wrapped and no further issues at this time up in chair, talking away alert but not oriented, appears around her baseline +BM No issues per dayshift nurse but does note patient much better through the day, and issues overnight. will consider low dose seroquel tonight for sundowning/sleep/agitation to visit today Review of Systems Review of Systems: All systems reviewed & are unremarkable except as noted in HPI & below Physical Exam Physical Exam: General: patient awake, alert to her name but not place/time/event or situation, sitting up in chair at this time with bedside tray in front Skin: warm, dry, intact, venous stasis changes present on bilateral LE with skin flaking HEENT: NC/AT, PERRL, EOMI, anicteric sclera, conjunctiva without injection, external ear normal to inspection and nontender, nares patent, mucus membranes slightly dry, dentition intact, no oropharyngeal lesions, neck supple, trachea midline, no LAD, no thyromegaly, no JVD, LARGE FUNGATING mass present on central frontal scalp - COVERED TODAY FROM PRIOR PICKING/BLEEDING. Dressing C/d/i, no p urulent drainage Heart: +S1/S2, regular, 92BPM, no m/r/g, 1-2+ b/l LE edema, calves equal in size nontender to palpation Lungs: no rales/rhonchi/wheezes, diminished in the bases, poor inspiratory e ffort when asked to take a deep breath, stable on room air Abd: +hypoactive, soft, non-distended, not focally tender although yelling out when touched anywhere, Ext: cool, 2+ pulses in UE/LE bilaterally, no clubbing/cyanosis, 2+ bilateral LE edema tender to palpation across thoracic spine Neuro: alert and oriented to self but not place/time/situation. generalized weakness now slightly improved (wheelchair at baseline but was witnessed standing up with walker with therapy 03/25) Results & Data Results & Data ([facility]) Vital Signs (Past 12 Hours) Vital Signs Temp Pulse Pulse Resp BP Pulse Ox 03/26/21 03:41 36.5 C 70 18 148/66 H 93 03/26/21 00:00 72 03/25/21 23:09 36.5 C 79 16 141/66 H 95 Laboratory Results 03/26/21 03/26/21 03/26/21 Range/Units 07:27 05:51 05:51 WBC 18.79 H (4.8-10.8) K/uL RBC 4.05 L (4.2-5.4) M/uL Hgb 13.6 (12.0-16.0) g/dL Hct 40.3 (37-47) % MCV 99.5 (80-100) fL MCH 33.6 (25-34) pg MCHC 33.7 (32-36) g/dL RDW Std Deviation 57.0 H (36.4-46.3) fL RDW Coeff of Fritz 15.7 H (11.5-14.5) % Plt Count 226 (130-400) K/uL MPV 12.1 H (7.4-10.4) fL Absolute Nucleated RBC 0.06 H (0-0) K/uL Nucleated RBC % (auto) 0.3 % Sodium 146 H (136-145) mmol/L Potassium 4.0 D (3.5-5.1) mmol/L Chloride 113 H (98-107) mmol/L Carbon Dioxide 25 (21-32) mmol/L Anion Gap 7.0 (3-11) BUN 32 H (7-18) mg/dl Creatinine 1.03 (0.6-1.2) mg/dl Est Cr Clr Drug Dosing 52.5 ml/min Est GFR ( Amer) 57.8 ml/min Est GFR (Non-Af Amer) 49.9 ml/min BUN/Creatinine Ratio 31.1 H (10-20) Glucose 102 H (70-99) mg/dl POC Glucose 129 H (70-99) mg/dl Calcium 8.5 (8.5-10.1) mg/dl Magnesium 2.3 (1.8-2.4) mg/dl Total Bilirubin 0.6 (0.2-1) mg/dl AST 93 H (15-37) U/L ALT 91 H (12-78) Alkaline Phosphatase 153 H (45-117) U/L Total Protein 6.8 (6.4-8.2) gm/dl Albumin 2.3 L (3.4-5.0) gm/dl Globulin 4.5 H (2.5-4.0) gm/dl Albumin/Globulin Ratio 0.5 L (0.9-2) Specimen Hemolysis 03/25/21 03/25/21 03/25/21 Range/Units 20:35 19:25 18:20 WBC (4.8-10.8) K/uL RBC (4.2-5.4) M/uL Hgb (12.0-16.0) g/dL Hct (37-47) % MCV (80-100) fL MCH (25-34) pg MCHC (32-36) g/dL RDW Std Deviation (36.4-46.3) fL RDW Coeff of Fritz (11.5-14.5) % Plt Count (130-400) K/uL MPV (7.4-10.4) fL Absolute Nucleated RBC (0-0) K/uL Nucleated RBC % (auto) % Sodium 145 (136-145) mmol/L Potassium 3.2 L (3.5-5.1) mmol/L Chloride 114 H (98-107) mmol/L Carbon Dioxide 24 (21-32) mmol/L Anion Gap 7.0 (3-11) BUN 33 H (7-18) mg/dl Creatinine 1.42 H D (0.6-1.2) mg/dl Est Cr Clr Drug Dosing 38.1 ml/min Est GFR ( Amer) 39.2 ml/min Est GFR (Non-Af Amer) 33.8 ml/min BUN/Creatinine Ratio 23.5 H (10-20) Glucose 175 H (70-99) mg/dl POC Glucose 114 H (70-99) mg/dl Calcium 9.0 (8.5-10.1) mg/dl Magnesium (1.8-2.4) mg/dl Total Bilirubin (0.2-1) mg/dl AST (15-37) U/L ALT (12-78) Alkaline Phosphatase (45-117) U/L Total Protein (6.4-8.2) gm/dl Albumin (3.4-5.0) gm/dl Globulin (2.5-4.0) gm/dl Albumin/Globulin Ratio (0.9-2) Specimen Hemolysis 03/25/21 03/25/21 03/25/21 Range/Units 16:36 12:18 12:00 WBC (4.8-10.8) K/uL RBC (4.2-5.4) M/uL Hgb (12.0-16.0) g/dL Hct (37-47) % MCV (80-100) fL MCH (25-34) pg MCHC (32-36) g/dL RDW Std Deviation (36.4-46.3) fL RDW Coeff of Fritz (11.5-14.5) % Plt Count (130-400) K/uL MPV (7.4-10.4) fL Absolute Nucleated RBC (0-0) K/uL Nucleated RBC % (auto) % Sodium 146 H (136-145) mmol/L Potassium 3.5 D (3.5-5.1) mmol/L Chloride 112 H (98-107) mmol/L Carbon Dioxide 29 (21-32) mmol/L Anion Gap 5.0 (3-11) BUN 28 H (7-18) mg/dl Creatinine 1.05 (0.6-1.2) mg/dl Est Cr Clr Drug Dosing 51.5 ml/min Est GFR ( Amer) 56.5 ml/min Est GFR (Non-Af Amer) 48.7 ml/min BUN/Creatinine Ratio 26.6 H (10-20) Glucose 186 H (70-99) mg/dl POC Glucose 211 H 168 H (70-99) mg/dl Calcium 9.1 (8.5-10.1) mg/dl Magnesium (1.8-2.4) mg/dl Total Bilirubin (0.2-1) mg/dl AST (15-37) U/L ALT (12-78) Alkaline Phosphatase (45-117) U/L Total Protein (6.4-8.2) gm/dl Albumin (3.4-5.0) gm/dl Globulin (2.5-4.0) gm/dl Albumin/Globulin Ratio (0.9-2) Specimen Hemolysis 03/25/21 Range/Units 07:58 WBC (4.8-10.8) K/uL RBC (4.2-5.4) M/uL Hgb (12.0-16.0) g/dL Hct (37-47) % MCV (80-100) fL MCH (25-34) pg MCHC (32-36) g/dL RDW Std Deviation (36.4-46.3) fL RDW Coeff of Fritz (11.5-14.5) % Plt Count (130-400) K/uL MPV (7.4-10.4) fL Absolute Nucleated RBC (0-0) K/uL Nucleated RBC % (auto) % Sodium (136-145) mmol/L Potassium (3.5-5.1) mmol/L Chloride (98-107) mmol/L Carbon Dioxide (21-32) mmol/L Anion Gap (3-11) BUN (7-18) mg/dl Creatinine (0.6-1.2) mg/dl Est Cr Clr Drug Dosing ml/min Est GFR ( Amer) ml/min Est GFR (Non-Af Amer) ml/min BUN/Creatinine Ratio (10-20) Glucose (70-99) mg/dl POC Glucose 104 H (70-99) mg/dl Calcium (8.5-10.1) mg/dl Magnesium (1.8-2.4) mg/dl Total Bilirubin (0.2-1) mg/dl AST (15-37) U/L ALT (12-78) Alkaline Phosphatase (45-117) U/L Total Protein (6.4-8.2) gm/dl Albumin (3.4-5.0) gm/dl Globulin (2.5-4.0) gm/dl Albumin/Globulin Ratio (0.9-2) Specimen Hemolysis PG Care Time/CCT Total # of Minutes Spent Total Time Spent with Patient: Total time spent is greater than 50% in coordination of care (as documented) at patient's floor/unit and/or counseling patient: Coding Level of Care Code 05842 Subseq Hosp Care Lvl 2 Diagnoses Generalized weakness R53.1 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) E23.0 Thoracic compression fracture S22.000A Hypertension I10 Hypertension type: essential hypertension Scalp lesion L98.9 Type 2 diabetes mellitus, with long-term current use of insulin E11.22; N18.3; Z79.4 Chronic kidney disease stage: stage 3 (moderate) Diabetes mellitus complication detail: with chronic kidney disease Diabetes mellitus complication status: with kidney complications GERD (gastroesophageal reflux disease) K21.9 Central hypothyroidism E03.8 Hypokalemia E87.6 Hypernatremia E87.0 Dementia F03.90 History of basal cell carcinoma Z85.828 (1) Type 2 diabetes mellitus, with long-term current use of insulin Chronic kidney disease stage: stage 3 (moderate) Diabetes mellitus complication detail: with chronic kidney disease Diabetes mellitus complication status: with kidney complications Qualified Code(s): E11.22 - Type 2 diabetes mellitus with diabetic chronic kidney disease; N18.3 - Chronic kidney disease, stage 3 (moderate); Z79.4 - intermediate accountant (current) use of insulin (2) Hypertension Hypertension type: essential hypertension Qualified Code(s): I10 - Essential (primary) hypertension
[2021-03-26] MEDS: FAMOTIDINE 20 MG in SYRINGE 3 ML IV SCH (08:14)
[2021-03-26] MEDS: INSULIN ASPART 100 UNITS/ML 3 ML PEN SC SCH ×4 (08:15→21:54)
[2021-03-26] MEDS: D5W AND 1/2NSS + 20MEQ KCL 20 MEQ/1,000 ML BAG IV SCH (09:10)
[2021-03-26] MEDS ORDERED: INSULIN HUMAN REGULAR PER UNIT 10 UNITS in SYRINGE 9.9 ML IV ONE (12:00)
[2021-03-26] MEDS: HYDROCORTISONE 10 MG TAB PO SCH (12:08)
--- NOTE | 2021-03-26 12:16 | Orthopedic Consultation ---
Date of Consultation March 26, 2021 Assessment & Plan (1) Thoracic compression fracture: Patient does have evidence of a thoracic fracture at T9 and T11-T12. In light of her severe advanced spondylosis there is a concern for underlying instability. Her alignment appears satisfactory at this time. She is asymptomatic on exam. She is obviously a very poor surgical candidate. A brace could be considered however I am not sure she be able to tolerate it in light of her body habitus and dementia. Suggested we consider a follow-up CAT scan in approximately week to assess fracture patterns if no changes will continue with activity as tolerated. History of Present Illness Reason for Consultation: Thoracic fractures Attending Physician: Abel Owusu, DO History of Present Illness The patient has significant dementia. She tends to laugh every time I ask her question. She does however deny any thoracic or low back pain. She denies any numbness or tingling in the lower extremities. History is obviously very difficult to obtain. Allergies Allergy/AdvReac Type Severity Reaction Status Date / Time amoxicillin Allergy Intermediate Swelling Verified 03/23/21 17:21 of Lips Cipro Allergy Intermediate RASH, Verified 08/03/17 14:29 NAUSEA ciprofloxacin Allergy Intermediate RASH, Verified 03/23/21 17:21 NAUSEA Sulfa (Sulfonamide Allergy Intermediate RASH Verified 03/23/21 17:21 Antibiotics) biotin Allergy Unknown UNKN Verified 03/23/21 17:21 cefepime AdvReac Severe HALLUCINATI Verified 03/23/21 17:21 ONS diphenhydramine AdvReac Severe HYPER Verified 03/23/21 17:21 INSOMNIA mirtazapine AdvReac Intermediate altered Verified 03/23/21 17:21 mental status changes nitrofurantoin AdvReac Intermediate CHEST Verified 03/23/21 17:21 PAIN, CONFUSION oxycodone AdvReac Mild N/V Verified 03/23/21 17:21 Home Medications Medication Instructions Recorded Confirmed Type Bifidobacterium infantis 4 mg 4 mg PO DAILY 08/08/18 03/23/21 History capsule (Align) acetaminophen 325 mg capsule 325 mg PO Q6H PRN 08/08/18 03/23/21 History docusate sodium 100 mg capsule 100 mg PO DAILY 08/08/18 03/23/21 History latanoprost 0.005 % eye drops 1 drops OP QPM 08/08/18 03/23/21 History betamethasone dipropionate 0.05 % 1 appln TOP BID #60 ml 10/07/18 03/23/21 Rx lotion menthol 5 % topical gel (Biofreeze 5 % TOP BID PRN #30 gm 01/06/19 03/23/21 Rx (menthol)) polyethylene glycol 3350 17 17 gm PO DAILY PRN #510 gm 01/06/19 03/23/21 Rx gram/dose oral powder (Miralax) propylene glycol 0.6 % eye drops 1 drops OP QID PRN #20 ml 01/06/19 03/23/21 Rx (Systane Complete) diaper,brief,adult,disposable #4 bag 07/29/19 11/14/20 Rx (Fitted Briefs X-Large) disposable gloves (Nitrile Exam #1,000 ea 07/29/19 11/14/20 Rx Gloves) incontinence pad, liner, disp #40 ea 07/29/19 11/14/20 Rx (Underpads Regular) levothyroxine 125 mcg tablet 125 mcg PO DAILY #90 tab 04/19/20 03/23/21 Rx glucagon 3 mg/actuation nasal 3 mg INTRANASAL ONCE PRN #2 ea 05/16/20 03/23/21 Rx spray (Baqsimi) chlorthalidone 25 mg tablet 12.5 mg PO DAILY 90 Days #45 tab 05/30/20 03/23/21 Rx furosemide 20 mg tablet 20 mg PO Q OTHER DAY PRN #15 tab 06/24/20 03/23/21 Rx lancets 30 gauge (OneTouch Delica #200 ea 07/11/20 11/14/20 Rx Lancets) insulin regular hum U-500 conc See Rx Instructions SQ .COMPLEX #3 10/21/20 03/23/21 Rx (Humulin R U-500 (Conc) Insulin box Kwikpen) alendronate 70 mg tablet See Rx Instructions .ROUTE 11/15/20 03/23/21 Rx .COMPLEX #13 tab hydrocortisone 10 mg tablet 10 mg PO .COMPLEX 90 Days #360 tab 12/19/20 03/23/21 Rx MDD 4 tabs daily blood sugar diagnostic (OneTouch #200 ea 12/27/20 Rx Verio test strips) omeprazole 20 mg capsule,delayed See Rx Instructions .ROUTE 12/27/20 03/23/21 Rx release .COMPLEX #90 capsule calcitriol 0.25 mcg capsule 0.25 mcg PO DAILY #90 cap 01/12/21 03/23/21 Rx cefdinir 300 mg capsule 300 mg PO DAILY #90 cap 01/16/21 03/23/21 Rx desmopressin 0.1 mg tablet 0.1 mg PO DAILY #90 tab 01/25/21 03/23/21 Rx BD Ultra-Fine Short Pen Needle 31 #200 ea NS 02/13/21 Rx gauge x 5/16" (pen needle, diabetic) potassium chloride 20 mEq 20 meq PO BID #180 tab 03/20/21 03/23/21 Rx tablet,extended release(part/cryst) mirabegron 50 mg tablet,extended 50 mg PO DAILY #90 tab 03/21/21 03/23/21 Rx release 24 hr (Myrbetriq) multivitamin 1 tab PO DAILY 03/23/21 03/23/21 History Patient History Medical History Acquired cyst of kidney Ambulatory dysfunction GERD (gastroesophageal reflux disease) Glaucoma History of basal cell carcinoma History of CVA (cerebrovascular accident) History of meningioma History of recurrent vertebral fractures Homonymous hemianopsia Hypertension Insomnia Nephrolithiasis OA (osteoarthritis) of knee Obesity Osteoporosis 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 Type 2 diabetes mellitus, with long-term current use of insulin Urinary incontinence Vitamin D insufficiency Surgical History H/O craniotomy H/O rectal polypectomy History of laparoscopic cholecystectomy History of salpingo-oophorectomy Hx of LASIK S/P cataract surgery S/P cholecystectomy Family History Sister Breast cancer Mother Bladder cancer Skin cancer Father Myocardial infarction Denies family history of Ovarian cancer Prostate cancer Colorectal cancer Social History Smoking Status: Unknown if ever smoked Second Hand Exposure: No; Hx Alcohol Use: No Hx Substance Use: No Preferred Language: Lao Communication Ability: Effective Visual Impairment: Blindness Hearing Ability: Hard of Hearing Snuff Grinder And Screener Required: No Beliefs That Will Affect Care: None marital status: Current Living Situation: Spouse current occupational status: retired Feels Safe at Home: Yes caffeine: No Dental Care, Regularly: Yes Physical Activity Frequency: Does not Exercise Seatbelt Use: always Sunscreen Use: Yes Assistive Devices: Walker Physical Exam Physical Exam: Patient is in the chair at the bedside. She is cooperative when asked her to move her legs and her toes up and down. She states sensory is intact. She does not appear to be uncomfortable. Results & Data ([facility]) Vital Signs (Past 12 Hours) Vital Signs Temp Pulse Resp BP Pulse Ox 03/26/21 11:30 36.8 C 92 H 20 122/67 95 03/26/21 03:41 36.5 C 70 18 148/66 H 93
[2021-03-26] MEDS: LIDOCAINE 5% 1 PATCH TD SCH (17:35)
[2021-03-26 19:22] LABS: BUN Creatinine Ratio 26.3 (10-20); Calcium 8.1 mg/dl (8.5-10.1); Creatinine Clr Calc Pharmacy 42.2 ml/min; Est GFR (African American) 44.5 ml/min; Est GFR (Non-African American) 38.4 ml/min; Potassium 3.5 mmol/L (3.5-5.1)
[2021-03-26] MEDS: ENOXAPARIN INJ 40 MG/0.4 ML SYR SQ SCH (21:54)
[2021-03-26] MEDS: LATANOPROST 0.005% OP SOLN 2.5 ML BTL OP SCH (21:55)
[2021-03-26] MEDS: QUEtiapine FUMARATE 25 MG TABLET PO SCH (21:55)
[2021-03-26] MEDS: DEXTROSE 50% 50 ML SYRINGE IV PRN (23:53)
[2021-03-27] MEDS: DEXTROSE 50% 50 ML SYRINGE IV PRN ×2 (02:45→05:31)
[2021-03-27] MEDS ORDERED: INSULIN ASPART 100 UNITS/ML 3 ML PEN SC SCH (03:00)
[2021-03-27] MEDS: INSULIN ASPART 100 UNITS/ML 3 ML PEN SC SCH ×4 (07:53→21:06)
[2021-03-27] MEDS: FAMOTIDINE 20 MG TAB PO SCH (07:54)
[2021-03-27] MEDS: CHLORTHALIDONE 25 MG TAB PO SCH (07:54)
[2021-03-27] MEDS: MIRABEGRON ER 25 MG TAB PO SCH (07:55)
[2021-03-27] MEDS: FAMOTIDINE 20 MG in SYRINGE 3 ML IV SCH (07:56)
[2021-03-27] MEDS: LIDOCAINE 5% 1 PATCH TD SCH (07:56)
[2021-03-27] MEDS: CEFDINIR 300 MG CAP PO SCH (07:57)
[2021-03-27] MEDS: CALCITRIOL 0.25 MCG CAPSULE PO SCH (07:57)
[2021-03-27] MEDS: LEVOTHYROXINE SODIUM 125 MCG TABLET PO SCH (07:57)
[2021-03-27] MEDS: BETAMETHASONE DIP AUG (DIPROLENE) 0.05% CR 15 GM TUBE EXT SCH ×2 (07:58→20:27)
[2021-03-27] MEDS ORDERED: HYDROCORTISONE 10 MG TAB PO SCH (09:00)
--- NOTE | 2021-03-27 09:00 | Palliative Care Consultation ---
Date of Consultation March 27, 2021 Assessment & Plan (1) Palliative care encounter: Yoav is an 85 year old who presented to the [facility] from home with increased weakness, altered mental status, and abdominal discomfort. She was found to have thoracic fractures T9-T12. Orthopedics as consulted and no surgery was recommended. She has a complex medical history that includes surgery that was performed for a meningioma. Yoav developed seizures post operatively. 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 This was complicated by intracranial hemorrhage post-operatively and she ultimately has continued to decline thereafter.Additional PMH includes: senile degeneration of the brain, CVA, depression, lymphedema, hyperna+, She is currently requiring near full care from her at home. Palliative medicine consulted to discuss overall goals of care. I met with the patient. She barely opened her eyes and moaned to her name. Per nursing, she was able to eat a few bites of applesauce and took her medications this morning. I called her Melecio, at [phone]. Him and I talked at length. He has been caring for her for the past 6 years and intends to continue to do so. She is able to eat food that is prepared in front of her, able to dress her self aside from bending over to get her socks on, etc at baseline. We discussed code status and the unlikelihood of her having a meaningful recovery with CPR or intubation. For now, he would like her to remain a Full Code. He does recognize that [facility] may be too rigorous of a rehab for her and was open to hear more regarding SNF; however, understanding the strain on the system with SNF placement at the moment. We did discuss Hospice and what that entails, he was interested in having the discussion and hearing about Hospice, but said he does not want to make a decision about that right now. She would certainly qualify for Hospice with a FAST score of all of 6 and 7A. He does recognize that being at home is best for her mental status to be in a familiar environment. For now, continue current care. palliative will follow. (2) Generalized weakness: (3) Confusion: History of Present Illness Reason for Consultation: Goals of care Requesting Physician: Belén Barber PA-C Attending Physician: Booker Sharma MD History of Present Illness Yoav is an 85 year old who presented to the [facility] from home with increased we akness, altered mental status, and abdominal discomfort. She was found to have thoracic fractures T9-T12. Orthopedics as consulted and no surgery was recommended. She has a complex medical history that includes surgery that was performed for a meningioma. Yoav developed seizures post operatively. 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 This was complicated by intracranial hemorrhage post-operatively and she ultimately has continued to decline thereafter.Additional PMH includes: senile degeneration of the brain, CVA, depression, lymphedema, hyperna+, She is currently requiring near full care from her at home. Palliative medicine consulted to discuss overall goals of care. Thanks for involving palliative medicine with this patient. Allergies Allergy/AdvReac Type Severity Reaction Status Date / Time amoxicillin Allergy Intermediate Swelling Verified 03/23/21 17:21 of Lips Cipro Allergy Intermediate RASH, Verified 08/03/17 14:29 NAUSEA ciprofloxacin Allergy Intermediate RASH, Verified 03/23/21 17:21 NAUSEA Sulfa (Sulfonamide Allergy Intermediate RASH Verified 03/23/21 17:21 Antibiotics) biotin Allergy Unknown UNKN Verified 03/23/21 17:21 cefepime AdvReac Severe HALLUCINATI Verified 03/23/21 17:21 ONS diphenhydramine AdvReac Severe HYPER Verified 03/23/21 17:21 INSOMNIA mirtazapine AdvReac Intermediate altered Verified 03/23/21 17:21 mental status changes nitrofurantoin AdvReac Intermediate CHEST Verified 03/23/21 17:21 PAIN, CONFUSION oxycodone AdvReac Mild N/V Verified 03/23/21 17:21 Home Medications Medication Instructions Recorded Confirmed Type Bifidobacterium infantis 4 mg 4 mg PO DAILY 08/08/18 03/23/21 History capsule (Align) acetaminophen 325 mg capsule 325 mg PO Q6H PRN 08/08/18 03/23/21 History docusate sodium 100 mg capsule 100 mg PO DAILY 08/08/18 03/23/21 History latanoprost 0.005 % eye drops 1 drops OP QPM 08/08/18 03/23/21 History betamethasone dipropionate 0.05 % 1 appln TOP BID #60 ml 10/07/18 03/23/21 Rx lotion menthol 5 % topical gel (Biofreeze 5 % TOP BID PRN #30 gm 01/06/19 03/23/21 Rx (menthol)) polyethylene glycol 3350 17 17 gm PO DAILY PRN #510 gm 01/06/19 03/23/21 Rx gram/dose oral powder (Miralax) propylene glycol 0.6 % eye drops 1 drops OP QID PRN #20 ml 01/06/19 03/23/21 Rx (Systane Complete) diaper,brief,adult,disposable #4 bag 07/29/19 11/14/20 Rx (Fitted Briefs X-Large) disposable gloves (Nitrile Exam #1,000 ea 07/29/19 11/14/20 Rx Gloves) incontinence pad, liner, disp #40 ea 07/29/19 11/14/20 Rx (Underpads Regular) levothyroxine 125 mcg tablet 125 mcg PO DAILY #90 tab 04/19/20 03/23/21 Rx glucagon 3 mg/actuation nasal 3 mg INTRANASAL ONCE PRN #2 ea 05/16/20 03/23/21 Rx spray (Baqsimi) chlorthalidone 25 mg tablet 12.5 mg PO DAILY 90 Days #45 tab 05/30/20 03/23/21 Rx furosemide 20 mg tablet 20 mg PO Q OTHER DAY PRN #15 tab 06/24/20 03/23/21 Rx lancets 30 gauge (OneTouch Delica #200 ea 07/11/20 11/14/20 Rx Lancets) insulin regular hum U-500 conc See Rx Instructions SQ .COMPLEX #3 10/21/20 03/23/21 Rx (Humulin R U-500 (Conc) Insulin box Florindaikpen) alendronate 70 mg tablet See Rx Instructions .ROUTE 11/15/20 03/23/21 Rx .COMPLEX #13 tab hydrocortisone 10 mg tablet 10 mg PO .COMPLEX 90 Days #360 tab 12/19/20 03/23/21 Rx MDD 4 tabs daily blood sugar diagnostic (OneTouch #200 ea 12/27/20 Rx Verio test strips) omeprazole 20 mg capsule,delayed See Rx Instructions .ROUTE 12/27/20 03/23/21 Rx release .COMPLEX #90 capsule calcitriol 0.25 mcg capsule 0.25 mcg PO DAILY #90 cap 01/12/21 03/23/21 Rx cefdinir 300 mg capsule 300 mg PO DAILY #90 cap 01/16/21 03/23/21 Rx desmopressin 0.1 mg tablet 0.1 mg PO DAILY #90 tab 01/25/21 03/23/21 Rx BD Ultra-Fine Short Pen Needle 31 #200 ea NS 02/13/21 Rx gauge x 5/16" (pen needle, diabetic) potassium chloride 20 mEq 20 meq PO BID #180 tab 03/20/21 03/23/21 Rx tablet,extended release(part/cryst) mirabegron 50 mg tablet,extended 50 mg PO DAILY #90 tab 03/21/21 03/23/21 Rx release 24 hr (Myrbetriq) multivitamin 1 tab PO DAILY 03/23/21 03/23/21 History Patient History Medical History Acquired cyst of kidney Ambulatory dysfunction Confusion GERD (gastroesophageal reflux disease) Glaucoma History of basal cell carcinoma History of CVA (cerebrovascular accident) History of meningioma History of recurrent vertebral fractures Homonymous hemianopsia Hypertension Insomnia Nephrolithiasis OA (osteoarthritis) of knee Obesity Osteoporosis Palliative care encounter 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 Type 2 diabetes mellitus, with long-term current use of insulin Urinary incontinence Vitamin D insufficiency Surgical History H/O craniotomy H/O rectal polypectomy History of laparoscopic cholecystectomy History of salpingo-oophorectomy Hx of LASIK S/P cataract surgery S/P cholecystectomy Family History Sister Breast cancer Mother Bladder cancer Skin cancer Father Myocardial infarction Denies family history of Ovarian cancer Prostate cancer Colorectal cancer Social History Smoking Status: Unknown if ever smoked Second Hand Exposure: No; Hx Alcohol Use: No Hx Substance Use: No Preferred Language: Bhutanese Communication Ability: Effective Visual Impairment: Blindness Hearing Ability: Hard of Hearing Ocular Care Aide Required: No Beliefs That Will Affect Care: None marital status: Current Living Situation: Spouse current occupational status: retired Feels Safe at Home: Yes caffeine: No Dental Care, Regularly: Yes Physical Activity Frequency: Does not Exercise Seatbelt Use: always Sunscreen Use: Yes Assistive Devices: Walker Review of Systems Review of Systems: Unobtainable due to cognitive status Physical Exam Constitutional: + frail appearing and comfortable Respiratory: normal respiratory effort Auscultation: + diminished lung sounds Cardiovascular: Rate/Rhythm: regular rate and regular rhythm Heart Sounds: normal S1 and normal S2 Extremities: normal capillary refill; no edema Gastrointestinal (Abdomen): Inspection/Auscultation: abdomen normal to inspection Percussion/Palpation: abdomen soft Psychiatric: Orientation: alert and oriented to person Insight: + poor insight Results & Data ([facility]) Vital Signs (Past 12 Hours) Vital Signs Temp Pulse Resp BP Pulse Ox 03/27/21 07:36 36.6 C 77 18 134/80 95 03/27/21 04:34 36.4 C L 70 18 109/54 L 94 03/26/21 23:24 36.5 C 75 18 148/77 H 96 PG Care Time/CCT Total # of Minutes Spent Total Time Spent with Patient: Total time spent is greater than 50% in coordination of care (as documented) at patient's floor/unit and/or counseling patient: 70 minutes Coding Level of Care Code 19865 Initial Inpt Care Lvl 3 Diagnoses Palliative care encounter Z51.5 Generalized weakness R53.1 Confusion R41.0 Time Spent (min) 70
[2021-03-27] MEDS: DOCUSATE SODIUM 100 MG CAP PO SCH (09:06)
[2021-03-27 09:09] LABS: Hematocrit (blood only) 41.6 % (37-47); Hemoglobin 13.6 g/dL (12.0-16.0); Mean Corpuscular Hemoglobin 32.9 pg (25-34); Mean Corpuscular Hgb Conc 32.7 g/dL (32-36); Mean Corpuscular Volume 100.5 fL (80-100); Mean Platelet Volume 12.4 fL (7.4-10.4); Nucleated RBC # (auto) 0.07 K/uL (0-0); Nucleated RBC % (auto) 0.6 %; Platelet Count 232 K/uL (130-400); RDW Standard Deviation 58.3 fL (36.4-46.3); Red Blood Count 4.14 M/uL (4.2-5.4); White Blood Count 12.57 K/uL (4.8-10.8)
[2021-03-27] MEDS ORDERED: INSULIN HUMAN NPH SC ONE ×2 (09:30→17:00)
[2021-03-27 09:46] LABS: Albumin Level 2.3 gm/dl (3.4-5.0); BUN Creatinine Ratio 25.1 (10-20); Bilirubin Direct 0.3 mg/dl (0-0.2); Bilirubin,Total 0.7 mg/dl (0.2-1); Calcium 8.7 mg/dl (8.5-10.1); Creatinine Clr Calc Pharmacy 46.6 ml/min; Est GFR (African American) 50.1 ml/min; Est GFR (Non-African American) 43.2 ml/min; Potassium 2.9 mmol/L (3.5-5.1); Total Protein 6.7 gm/dl (6.4-8.2)
[2021-03-27] MEDS ORDERED: POTASSIUM CHLORIDE CRTAB 20 MEQ TABCR PO ONE (10:15)
--- NOTE | 2021-03-27 11:22 | Pharmacy Report ---
Pharmacy Glycemic Short Note 2 - Date of Service March 27, 2021 - Glycemic Short BSG Results (Last 24 hours): 03/26/21 03/26/21 03/26/21 11:31 11:32 16:33 Glucose POC Glucose 365 H* 334 H* 140 H 03/26/21 03/26/21 03/26/21 18:55 19:08 20:18 Glucose 134 H POC Glucose 126 H 110 H 03/26/21 03/26/21 03/27/21 23:50 23:52 00:08 Glucose POC Glucose 37 L* 33 L* 149 H 03/27/21 03/27/21 03/27/21 02:38 03:02 05:27 Glucose POC Glucose 31 L* 121 H 44 L* 03/27/21 03/27/21 03/27/21 05:54 07:20 08:00 Glucose POC Glucose 150 H 83 100 H 03/27/21 03/27/21 08:35 09:24 Glucose 113 H POC Glucose 146 H OUTPATIENT ANTIDIABETIC REGIMEN: * U-500 80 units with breakfast, 100 units with lunch per med list (Per outpatient Endo notes 11/14/20 taking 80 units with breakfast and 80 units with dinner) * HbA1c = 6.9% (03/25/21) ASSESSMENT: 03/27: * Yoav received a total of 156 units of insulin yesterday (130 units of U-500 + 10 units IV + 16 units bolus) * BSGs were uncontrolled: [phone] mg/dL * Fasting BSG was 83 mg/dL this AM - at goal * Patient had severe episode of hypoglycemia yesterday evening/early this AM. Baseline confusion in this patient so symptoms were difficult to assess. Required 3 full amps of D50 for each episode of hypoglycemia. * Given low doses of U-500 as an outpatient, age and HbA1c, plan to transition patient to NPH this AM. * Spoke with RN and patient did eat some breakfast this AM, mostly applesauce. * Will start with a conservative NPH dose of ~ 0.2 units/kg this morning. Evening NPH dose will be assessed later in the day. * Will adjust Novolog to have carb coverage at this time. 03/24: * 85 year old admitted with weakness/abdominal pain/confusion. Over the last several days she has been unable to ambulate. Follows [facility] for diabetes management * Some concern for adrenal insufficiency, typically on hydrocortisone at home. Started on high dose hydrocortisone on admission * Per notes, patient took only 55 units of U-500 yesterday AM and 60 units in afternoon. BSGs trending down to 69 mg/dL last evening. (this was before hydrocortisone was given). Treated for hyperglycemia with amp of dextrose * Fasting BSG elevated at 243 mg/dL. Received 55 units of U-500 yesterday, will increase dose ~20% this AM to account for ongoing steroids. I am hesitant to be any more aggressive as patient also NPO PLAN FOR INPATIENT GLYCEMIC CONTROL: * Basal insulin - change to NPH * NPH 25 units SC AM * Evening NPH dose will be determined with dinner BSG * Bolus insulin * NovoLog per scale ACHS or Q6hrs while NPO * Goal Range: Low 120 mg/dL - High 150 mg/dL * Correction Factor: 20 mg/dL/unit * Nutritional / Prandial insulin per carb ratio of 1 unit per 7 grams CHO consumed PLAN FOR DISCHARGE: * HbA1c was 6.9% during this admission. This is at goal of less than 8% given her age and comorbidities. * Patient follows with [facility] [facility] [place]ology as an outpatient. Defer any insulin adjustments to them.
--- NOTE | 2021-03-27 12:27 | Hospitalist Progress Note ---
Date of Service March 27, 2021 Assessment & Plan (1) Generalized weakness: Plan: Multifactorial. 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 In August of 2013, she underwent surgery for a meningioma. Yoav developed seizures post operatively. She underwent repeat craniotomy in April 2014 for removal of a Rathke's c left cyst. This was complicated by intracranial hemorrhage post-operatively. She has an unhealed wound on her scalp following repeat craniotomy for which she is maintained on chronic suppressive antibiotics. Post-operative recovery was complicated by a fall at [facility] which resulted in cervical spine fractures. At this time, Yoav is chronically wheelchair dependent. She requires 24 hour assistance from a caregiver which includes assistance with most every activity to daily living." Ddx to include adrenal insufficiency (no hypotension), infection (chronic elevations WBC), dehydration (reported less oral intake per outpatient notes, suspect advancement of dementia as well) Reportedly weak, more confused, ambulatory dysfunction and abdominal pain for the last few days per but hadn't been sleeping x several days and this has happened in the past--> got some sleep but then ing at night with picking at her fungating lesion/bleeding and restraints ordered (since d/c'd) WBC elevated 2nd to steroid use. Blood cultures negative to date Ammonia wnl Folate >20 B12 1764 Procal 0.13 -- is to be on chronic suppressive therapy w/ cefdinir 300mg daily for scalp not ordered on admit, resumed TSH undetectable * -- unreliable in patient with panhypopituitarism. Free T4 wnl 1.42 and continued usual Synthroid. T3 in AM. Follows with Dr Fung CXR negative CTA/P Small nondisplaced fracture within the anterior aspect of the T9 v ertebral body. No bowel wall thickening or obstruction. Normal appendix. 3. Colonic diverticulosis. No evidence for acute diverticulitis. 4. Prior cholecystectomy with a small amount of pneumobilia, unchanged. 5. Left-sided nephrolithiasis. No ureteral stones. No hydronephrosis CT Head . Study markedly compromised by motion artifact. No acute intracranial findings identified. 4.2 x 2.3 cm mass-like abnormality overlying the right frontal craniotomy. This is suboptimally assessed on this exam given motion artifact. This is indeterminate and recurrent meningioma with extracranial extension cannot be excluded. Findings discussed with Dr. Newsome at time of dictation. * ??Per dermatology notes outpatient, was told not to touch this mass and to leave it alone. Does have hx BCC s/p Mohs above R eye * Check MRI Brain pituitary w/wo as previously ordered by endocrinology outpatient but this was never performed. ? if "fungating mass actually a BCC?" * --> has not been obtained yet due to patient not able to cooperate for imaging and doubt currently that she would be able to tolerate this but if able would obtain--> Holding off for now as more awake/alert and stated she got better sleep CT Thoracic spine with acute nondisplaced fx T9, additional findings at T12-L1 as below * Check PTH, Vit D -- pending * On calcitriol (may need held but will also check Vit D in AM) * Ortho on consult PT/OT evals ordered --> HAD GOTTEN UP OUT OF BED WITH WALKER AND STANDING (WHEELCHAIR AT BASELINE) 12/ Fall precautions ordered Continue to monitor labs/electrolyte replacement (2) Scalp lesion: Plan: Known lesion secondary to meningioma extraction, poor wound healing and exposed mesh. Does have some bleeding today, no evidence of infection but concerns given hx bcc--? extension? meningioma on imaging. MRI not yet done ?consult for biopsy although was told not to in the past -- said this was was to be left alone and that she takes cefdinir daily for suppressive therapy Had been picking at this, mitts ordered, covered in bandage. 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 Patient is to take hydrocortisone - uncertain when last dose was taken or if she increased her dosing in light of current illness. Blood pressure is stable and electrolytes -- replacement of electrolytes as needed-- had not taken prior meds and had hypokalemia/hypernatremia -- improving Metabolic Encephalopathy --2nd to lack of sleep/possible medication non- compliance -- IVF D5 1/2NS +K ordered, K replacement for K2.7. Had skipped her AM meds AM 03/25 and IV ordered for those that could be replaced -- took pills today without issues and will monitor Switched back to her usual Hydrocortisone 15mg QAM, 5mg at noon Got DDAVP IV 03/25 as skipped AM meds d/t compliance -- did take today. Consider increased dose if needed MRI pituitary if able to tolerate -- may not be able to stay still for adequate imaging given artifact on imaging on admission (4) History of basal cell carcinoma: Plan: hx MOhs to above eye given fungating scalp mass (although told to leave alone by previous providers), ? concern for this actually being extension of recurrent meningioma w/ extracranial extension not excluded on CT on admit -- not noted 2016. (5) Thoracic compression fracture: Plan: CT Thoracic spine * Acute appearing nondisplaced oblique fracture through the mid to inferior T9 vertebral body. Additional acute appearing transverse fracture through anterior osteophytes at the T12-L1 level which may extend through the disc space. These fractures do not appear to extend into the posterior elements. However, stability of these fractures is difficult to assess by imaging given extensive anterior osteophytosis of the thoracic spine. Ortho consult -- would not pursue surgery in patient with multiple co- morbidities * --> Suggest f/u CT scan in 1 week to assess fracture patterns -- if no changes would continue activity as tolerated * ?brace by orthotics if able to tolerate when out of bed but doubt patient able to tolerate/would be compliant with such Tylenol, lidocaine patch, tramadol prn pain (6) Hypertension: Plan: Chronic. Blood pressure elevated 182/109 on admission * Continue Chlorthalidone (7) Type 2 diabetes mellitus, with long-term current use of insulin: Plan: Glycemic management consultation. Patient on U500 at home. Hypoglycemic in the ER and again overnight March 26. U5 100 switch to NPH insulin today, March 27. We will continue to monitor frequent Accu-Cheks. PHARMACY ON CONSULT Monitor BSGs (8) GERD (gastroesophageal reflux disease): Plan: Pepcid 20mg po qAM while inpatient (9) Central hypothyroidism: Plan: Chronic -Continue Synthroid TSH undetectable (not reliable with above), however T4 wnl 1.42. (10) Hypokalemia: Plan: 2nd to insulin/extra chlorthalidone on admission/poor PO intake/above Continue to monitor levels (11) Hypernatremia: Plan: Hx DI, Na 149 on AM labs --> IV DDAVP given. Improved IVF now d/c'd Serial labs (12) Dementia: Plan: Chronic. Supportive care. Now on low dose seroquel HS for sundowning/agitation. Plan: Ppx - Lovenox SQ Code Status _--- CONFIRMED LEVEL 1 with on phone 03/24 Continue PT/OT Disposition: To be determined --> consider c/w derm in AM if able to biopsy Admission and Anticipated Discharge Date Admission Date: March 23, 2021 Subjective Difficult to arouse this morning. She developed hypoglycemia last evening. U5 100 insulin has been switched to NPH insulin. Potassium supplementation underway for hypokalemia. Will monitor daily lab studies. Dermatology consultation pending to determine if they are willing to biopsy the exophytic scalp mass. Review of Systems Review of Systems: Review of systems cannot be obtained at this time Physical Exam Physical Exam: General-somnolent. HEENT-exophytic right temporoparietal mass which is not new. Pupils equal and reactive to light, extraocular muscles intact Neck-no lymphadenopathy or thyromegaly, trachea midline Chest-clear anteriorly. Cardiac-regular rate and rhythm, normal S1 and S2 Abdomen-normal bowel sounds, no hepatosplenomegaly Extremities-no cyanosis, clubbing, or edema Neuro-appears chronically ill. Moves all 4 extremities randomly. 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) E23.0 History of basal cell carcinoma Z85.828 Thoracic compression fracture S22.000A Hypertension I10 Hypertension type: essential hypertension Type 2 diabetes mellitus, with long-term current use of insulin E11.22; N18.3; Z79.4 Diabetes mellitus complication status: with kidney complications Diabetes mellitus complication detail: with chronic kidney disease Chronic kidney disease stage: stage 3 (moderate) GERD (gastroesophageal reflux disease) K21.9 Central hypothyroidism E03.8 Hypokalemia E87.6 Hypernatremia E87.0 Dementia F03.90 (1) Hypertension Hypertension type: essential hypertension Qualified Code(s): I10 - Essential (primary) hypertension (2) Type 2 diabetes mellitus, with long-term current use of insulin Diabetes mellitus complication status: with kidney complications Diabetes mellitus complication detail: with chronic kidney disease Chronic kidney disease stage: stage 3 (moderate) Qualified Code(s): E11.22 - Type 2 diabetes mellitus with diabetic chronic kidney disease; N18.3 - Chronic kidney disease, stage 3 (moderate); Z79.4 - corn popper (current) use of insulin
--- NOTE | 2021-03-27 12:56 | Dermatology Consultation ---
Date of Consultation March 27, 2021 Assessment & Plan (1) Surgical wound, non healing: No biopsy necessary. Active bleeding at the site was related to the area of exuberant granulation tissue present at the right anterior edge, which caused significant worsening of the eschar as compared to prior wound care photos. It is unclear if this was directly related to her manipulating/scratching at the site or irritation from the surgical mesh abutting the area. Nonetheless, due to the active bleeding and significant worsening of her eschar, it needed to be removed today to stop the area of bleeding and prevent further worsening/irritation. Patient tolerated this well. Recommend the following: - I can follow loosely if needed while inpatient, but patient needs [facility] follow-up upon discharge for management of chronic wound until it stabilizes again as there is low likelihood that this wound will ever fully heal. - Recommend dressing changes every 1-2 days using xeroform gauze, nonabsorbent Telfa and a gauze wrap to prevent patient from manipulating the site. - Continue antimicrobial management as per primary team/ID. Present on Admission?: Yes History of Present Illness Reason for Consultation: Wound on scalp Requesting Physician: Belén Barber PA-C Attending Physician: Booker Sharma MD History of Present Illness Patient is a 85 y/o WF admitted to [facility] on 03/23/2021 for generalized weakness/m ental status changes. 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 I was consulted for evaluation of the nonhealing surgical wound on the scalp due to concern for a reported change in its appearance and concern for malignancy. Patient is unfortunately unable to provide any significant history. According to the nursing staff, she has scratched at the site, causing it to bleed within the past 1-2 days. They have been keeping the area covered with a dressing to help prevent her from manipulating it. 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 According to records, she was previously followed at the [facility], last seen this spring. At that time daily wound had been stable with persistent, dried eschar in place. Given the stable nature, she was discharged from the clinic at that time. She has been followed for routine skin evaluations by Dr. De León at [facility] due to a prior history of BCC. At the time of her last full skin evaluation there in July 2020, their documentation suggested that the site had been stable. Nursing staff has n oticed increased bleeding and drainage from the site over the past 1-2 days, following the patient scratching at the site, therefore, I was consulted for acute evaluation. She did have a CT scan of the head performed at the time of admission, but the study was markedly compromised due to motion artifact. Wound care nurse is present at the time of the encounter today. Allergies Allergy/AdvReac Type Severity Reaction Status Date / Time amoxicillin Allergy Intermediate Swelling Verified 03/23/21 17:21 of Lips Cipro Allergy Intermediate RASH, Verified 08/03/17 14:29 NAUSEA ciprofloxacin Allergy Intermediate RASH, Verified 03/23/21 17:21 NAUSEA Sulfa (Sulfonamide Allergy Intermediate RASH Verified 03/23/21 17:21 Antibiotics) biotin Allergy Unknown UNKN Verified 03/23/21 17:21 cefepime AdvReac Severe HALLUCINATI Verified 03/23/21 17:21 ONS diphenhydramine AdvReac Severe HYPER Verified 03/23/21 17:21 INSOMNIA mirtazapine AdvReac Intermediate altered Verified 03/23/21 17:21 mental status changes nitrofurantoin AdvReac Intermediate CHEST Verified 03/23/21 17:21 PAIN, CONFUSION oxycodone AdvReac Mild N/V Verified 03/23/21 17:21 Home Medications Medication Instructions Recorded Confirmed Type Bifidobacterium infantis 4 mg 4 mg PO DAILY 08/08/18 03/23/21 History capsule (Align) acetaminophen 325 mg capsule 325 mg PO Q6H PRN 08/08/18 03/23/21 History docusate sodium 100 mg capsule 100 mg PO DAILY 08/08/18 03/23/21 History latanoprost 0.005 % eye drops 1 drops OP QPM 08/08/18 03/23/21 History betamethasone dipropionate 0.05 % 1 appln TOP BID #60 ml 10/07/18 03/23/21 Rx lotion menthol 5 % topical gel (Biofreeze 5 % TOP BID PRN #30 gm 01/06/19 03/23/21 Rx (menthol)) polyethylene glycol 3350 17 17 gm PO DAILY PRN #510 gm 01/06/19 03/23/21 Rx gram/dose oral powder (Miralax) propylene glycol 0.6 % eye drops 1 drops OP QID PRN #20 ml 01/06/19 03/23/21 Rx (Systane Complete) diaper,brief,adult,disposable #4 bag 07/29/19 11/14/20 Rx (Fitted Briefs X-Large) disposable gloves (Nitrile Exam #1,000 ea 07/29/19 11/14/20 Rx Gloves) incontinence pad, liner, disp #40 ea 07/29/19 11/14/20 Rx (Underpads Regular) levothyroxine 125 mcg tablet 125 mcg PO DAILY #90 tab 04/19/20 03/23/21 Rx glucagon 3 mg/actuation nasal 3 mg INTRANASAL ONCE PRN #2 ea 05/16/20 03/23/21 Rx spray (Baqsimi) chlorthalidone 25 mg tablet 12.5 mg PO DAILY 90 Days #45 tab 05/30/20 03/23/21 Rx furosemide 20 mg tablet 20 mg PO Q OTHER DAY PRN #15 tab 06/24/20 03/23/21 Rx lancets 30 gauge (OneTouch Delica #200 ea 07/11/20 11/14/20 Rx Lancets) insulin regular hum U-500 conc See Rx Instructions SQ .COMPLEX #3 10/21/20 03/23/21 Rx (Humulin R U-500 (Conc) Insulin box Kwikpen) alendronate 70 mg tablet See Rx Instructions .ROUTE 11/15/20 03/23/21 Rx .COMPLEX #13 tab hydrocortisone 10 mg tablet 10 mg PO .COMPLEX 90 Days #360 tab 12/19/20 03/23/21 Rx MDD 4 tabs daily blood sugar diagnostic (OneTouch #200 ea 12/27/20 Rx Verio test strips) omeprazole 20 mg capsule,delayed See Rx Instructions .ROUTE 12/27/20 03/23/21 Rx release .COMPLEX #90 capsule calcitriol 0.25 mcg capsule 0.25 mcg PO DAILY #90 cap 01/12/21 03/23/21 Rx cefdinir 300 mg capsule 300 mg PO DAILY #90 cap 01/16/21 03/23/21 Rx desmopressin 0.1 mg tablet 0.1 mg PO DAILY #90 tab 01/25/21 03/23/21 Rx BD Ultra-Fine Short Pen Needle 31 #200 ea NS 02/13/21 Rx gauge x 5/16" (pen needle, diabetic) potassium chloride 20 mEq 20 meq PO BID #180 tab 03/20/21 03/23/21 Rx tablet,extended release(part/cryst) mirabegron 50 mg tablet,extended 50 mg PO DAILY #90 tab 03/21/21 03/23/21 Rx release 24 hr (Myrbetriq) multivitamin 1 tab PO DAILY 03/23/21 03/23/21 History Patient History Medical History Acquired cyst of kidney Ambulatory dysfunction Confusion GERD (gastroesophageal reflux disease) Glaucoma History of basal cell carcinoma History of CVA (cerebrovascular accident) History of meningioma History of recurrent vertebral fractures Homonymous hemianopsia Hypertension Insomnia Nephrolithiasis OA (osteoarthritis) of knee Obesity Osteoporosis Palliative care encounter 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 Type 2 diabetes mellitus, with long-term current use of insulin Urinary incontinence Vitamin D insufficiency Surgical History H/O craniotomy H/O rectal polypectomy History of laparoscopic cholecystectomy History of salpingo-oophorectomy Hx of LASIK S/P cataract surgery S/P cholecystectomy Family History Sister Breast cancer Mother Bladder cancer Skin cancer Father Myocardial infarction Denies family history of Ovarian cancer Prostate cancer Colorectal cancer Social History Smoking Status: Unknown if ever smoked Second Hand Exposure: No; Hx Alcohol Use: No Hx Substance Use: No Preferred Language: R[place] Communication Ability: Effective Visual Impairment: Blindness Hearing Ability: Hard of Hearing Admitting Office Escort Required: No Beliefs That Will Affect Care: None marital status: Current Living Situation: Spouse current occupational status: retired Feels Safe at Home: Yes caffeine: No Dental Care, Regularly: Yes Physical Activity Frequency: Does not Exercise Seatbelt Use: always Sunscreen Use: Yes Assistive Devices: Walker Review of Systems Constitutional: no fever and no chills Integumentary: as per Subjective / HPI Hematologic / Lymphatic: no easy bleeding and no easy bruising Physical Exam Physical Exam: General Appearance:Well developed and in no acute distress Psych:Alert Skin Type:2 Scalp/Hair: - 7cm x 4.5cm thick, partially adherent, crusted plaque/eschar with slow, active bleeding from the right anterior edge on the mid vertex scalp at prior craniotomy site - upon removal of eschar, approximately 1cm plaque of actively bleeding, exuberant granulation tissue present at the right anterior edge of prior surgical wound abutting the metal fenestrated mesh Face:No abnormalities noted. Eyelids/Ocular Mucosa: No abnormalities noted. Lips/Teeth/Gums: No abnormalities noted. Neck: No abnormalities noted. Results & Data ([facility]) Vital Signs (Past 12 Hours) Vital Signs Temp Pulse Resp BP Pulse Ox 03/27/21 07:36 36.6 C 77 18 134/80 95 03/27/21 04:34 36.4 C L 70 18 109/54 L 94 Laboratory Results 03/27/21 03/27/21 03/27/21 Range/Units 11:27 09:24 08:35 WBC (4.8-10.8) K/uL RBC (4.2-5.4) M/uL Hgb (12.0-16.0) g/dL Hct (37-47) % MCV (80-100) fL MCH (25-34) pg MCHC (32-36) g/dL RDW Std Deviation (36.4-46.3) fL RDW Coeff of Fritz (11.5-14.5) % Plt Count (130-400) K/uL MPV (7.4-10.4) fL Absolute Nucleated RBC (0-0) K/uL Nucleated RBC % (auto) % Sodium 147 H (136-145) mmol/L Potassium 2.9 L D (3.5-5.1) mmol/L Chloride 113 H (98-107) mmol/L Carbon Dioxide 25 (21-32) mmol/L Anion Gap 9.0 (3-11) BUN 29 H (7-18) mg/dl Creatinine 1.16 (0.6-1.2) mg/dl Est Cr Clr Drug Dosing 46.6 ml/min Est GFR ( Amer) 50.1 ml/min Est GFR (Non-Af Amer) 43.2 ml/min BUN/Creatinine Ratio 25.1 H (10-20) Glucose 113 H (70-99) mg/dl POC Glucose 151 H 146 H (70-99) mg/dl Calcium 8.7 (8.5-10.1) mg/dl Total Bilirubin 0.7 (0.2-1) mg/dl Direct Bilirubin 0.3 H (0-0.2) mg/dl AST 125 H (15-37) U/L ALT 122 H (12-78) Alkaline Phosphatase 148 H (45-117) U/L Total Protein 6.7 (6.4-8.2) gm/dl Albumin 2.3 L (3.4-5.0) gm/dl 25-OH Vitamin D Total (30-100) ng/ml Free T3 (2.3-4.2) pg/ml PTH Intact (18.4-80.1) pg/ml 03/27/21 03/27/21 03/27/21 Range/Units 08:35 08:35 08:00 WBC 12.57 H (4.8-10.8) K/uL RBC 4.14 L (4.2-5.4) M/uL Hgb 13.6 (12.0-16.0) g/dL Hct 41.6 (37-47) % MCV 100.5 H (80-100) fL MCH 32.9 (25-34) pg MCHC 32.7 (32-36) g/dL RDW Std Deviation 58.3 H (36.4-46.3) fL RDW Coeff of Fritz 16.0 H (11.5-14.5) % Plt Count 232 (130-400) K/uL MPV 12.4 H (7.4-10.4) fL Absolute Nucleated RBC 0.07 H (0-0) K/uL Nucleated RBC % (auto) 0.6 % Sodium (136-145) mmol/L Potassium (3.5-5.1) mmol/L Chloride (98-107) mmol/L Carbon Dioxide (21-32) mmol/L Anion Gap (3-11) BUN (7-18) mg/dl Creatinine (0.6-1.2) mg/dl Est Cr Clr Drug Dosing ml/min Est GFR ( Amer) ml/min Est GFR (Non-Af Amer) ml/min BUN/Creatinine Ratio (10-20) Glucose (70-99) mg/dl POC Glucose 100 H (70-99) mg/dl Calcium (8.5-10.1) mg/dl Total Bilirubin (0.2-1) mg/dl Direct Bilirubin (0-0.2) mg/dl AST (15-37) U/L ALT (12-78) Alkaline Phosphatase (45-117) U/L Total Protein (6.4-8.2) gm/dl Albumin (3.4-5.0) gm/dl 25-OH Vitamin D Total (30-100) ng/ml Free T3 2.04 L (2.3-4.2) pg/ml PTH Intact (18.4-80.1) pg/ml 03/27/21 03/27/21 03/27/21 Range/Units 07:20 05:54 05:27 WBC (4.8-10.8) K/uL RBC (4.2-5.4) M/uL Hgb (12.0-16.0) g/dL Hct (37-47) % MCV (80-100) fL MCH (25-34) pg MCHC (32-36) g/dL RDW Std Deviation (36.4-46.3) fL RDW Coeff of Fritz (11.5-14.5) % Plt Count (130-400) K/uL MPV (7.4-10.4) fL Absolute Nucleated RBC (0-0) K/uL Nucleated RBC % (auto) % Sodium (136-145) mmol/L Potassium (3.5-5.1) mmol/L Chloride (98-107) mmol/L Carbon Dioxide (21-32) mmol/L Anion Gap (3-11) BUN (7-18) mg/dl Creatinine (0.6-1.2) mg/dl Est Cr Clr Drug Dosing ml/min Est GFR ( Amer) ml/min Est GFR (Non-Af Amer) ml/min BUN/Creatinine Ratio (10-20) Glucose (70-99) mg/dl POC Glucose 83 150 H 44 L* (70-99) mg/dl Calcium (8.5-10.1) mg/dl Total Bilirubin (0.2-1) mg/dl Direct Bilirubin (0-0.2) mg/dl AST (15-37) U/L ALT (12-78) Alkaline Phosphatase (45-117) U/L Total Protein (6.4-8.2) gm/dl Albumin (3.4-5.0) gm/dl 25-OH Vitamin D Total (30-100) ng/ml Free T3 (2.3-4.2) pg/ml PTH Intact (18.4-80.1) pg/ml 03/27/21 03/27/21 03/27/21 Range/Units 03:02 02:38 00:08 WBC (4.8-10.8) K/uL RBC (4.2-5.4) M/uL Hgb (12.0-16.0) g/dL Hct (37-47) % MCV (80-100) fL MCH (25-34) pg MCHC (32-36) g/dL RDW Std Deviation (36.4-46.3) fL RDW Coeff of Fritz (11.5-14.5) % Plt Count (130-400) K/uL MPV (7.4-10.4) fL Absolute Nucleated RBC (0-0) K/uL Nucleated RBC % (auto) % Sodium (136-145) mmol/L Potassium (3.5-5.1) mmol/L Chloride (98-107) mmol/L Carbon Dioxide (21-32) mmol/L Anion Gap (3-11) BUN (7-18) mg/dl Creatinine (0.6-1.2) mg/dl Est Cr Clr Drug Dosing ml/min Est GFR ( Amer) ml/min Est GFR (Non-Af Amer) ml/min BUN/Creatinine Ratio (10-20) Glucose (70-99) mg/dl POC Glucose 121 H 31 L* 149 H (70-99) mg/dl Calcium (8.5-10.1) mg/dl Total Bilirubin (0.2-1) mg/dl Direct Bilirubin (0-0.2) mg/dl AST (15-37) U/L ALT (12-78) Alkaline Phosphatase (45-117) U/L Total Protein (6.4-8.2) gm/dl Albumin (3.4-5.0) gm/dl 25-OH Vitamin D Total (30-100) ng/ml Free T3 (2.3-4.2) pg/ml PTH Intact (18.4-80.1) pg/ml 03/26/21 03/26/21 03/26/21 Range/Units 23:52 23:50 20:18 WBC (4.8-10.8) K/uL RBC (4.2-5.4) M/uL Hgb (12.0-16.0) g/dL Hct (37-47) % MCV (80-100) fL MCH (25-34) pg MCHC (32-36) g/dL RDW Std Deviation (36.4-46.3) fL RDW Coeff of Fritz (11.5-14.5) % Plt Count (130-400) K/uL MPV (7.4-10.4) fL Absolute Nucleated RBC (0-0) K/uL Nucleated RBC % (auto) % Sodium (136-145) mmol/L Potassium (3.5-5.1) mmol/L Chloride (98-107) mmol/L Carbon Dioxide (21-32) mmol/L Anion Gap (3-11) BUN (7-18) mg/dl Creatinine (0.6-1.2) mg/dl Est Cr Clr Drug Dosing ml/min Est GFR ( Amer) ml/min Est GFR (Non-Af Amer) ml/min BUN/Creatinine Ratio (10-20) Glucose (70-99) mg/dl POC Glucose 33 L* 37 L* 110 H (70-99) mg/dl Calcium (8.5-10.1) mg/dl Total Bilirubin (0.2-1) mg/dl Direct Bilirubin (0-0.2) mg/dl AST (15-37) U/L ALT (12-78) Alkaline Phosphatase (45-117) U/L Total Protein (6.4-8.2) gm/dl Albumin (3.4-5.0) gm/dl 25-OH Vitamin D Total (30-100) ng/ml Free T3 (2.3-4.2) pg/ml PTH Intact (18.4-80.1) pg/ml 03/26/21 03/26/21 03/26/21 Range/Units 19:08 18:55 16:33 WBC (4.8-10.8) K/uL RBC (4.2-5.4) M/uL Hgb (12.0-16.0) g/dL Hct (37-47) % MCV (80-100) fL MCH (25-34) pg MCHC (32-36) g/dL RDW Std Deviation (36.4-46.3) fL RDW Coeff of Fritz (11.5-14.5) % Plt Count (130-400) K/uL MPV (7.4-10.4) fL Absolute Nucleated RBC (0-0) K/uL Nucleated RBC % (auto) % Sodium 144 (136-145) mmol/L Potassium 3.5 (3.5-5.1) mmol/L Chloride 111 H (98-107) mmol/L Carbon Dioxide 25 (21-32) mmol/L Anion Gap 8.0 (3-11) BUN 34 H (7-18) mg/dl Creatinine 1.28 H (0.6-1.2) mg/dl Est Cr Clr Drug Dosing 42.2 ml/min Est GFR ( Amer) 44.5 ml/min Est GFR (Non-Af Amer) 38.4 ml/min BUN/Creatinine Ratio 26.3 H (10-20) Glucose 134 H (70-99) mg/dl POC Glucose 126 H 140 H (70-99) mg/dl Calcium 8.1 L (8.5-10.1) mg/dl Total Bilirubin (0.2-1) mg/dl Direct Bilirubin (0-0.2) mg/dl AST (15-37) U/L ALT (12-78) Alkaline Phosphatase (45-117) U/L Total Protein (6.4-8.2) gm/dl Albumin (3.4-5.0) gm/dl 25-OH Vitamin D Total (30-100) ng/ml Free T3 (2.3-4.2) pg/ml PTH Intact (18.4-80.1) pg/ml 12/04/21 12/04/21 Range/Units 05:51 05:51 WBC (4.8-10.8) K/uL RBC (4.2-5.4) M/uL Hgb (12.0-16.0) g/dL Hct (37-47) % MCV (80-100) fL MCH (25-34) pg MCHC (32-36) g/dL RDW Std Deviation (36.4-46.3) fL RDW Coeff of Fritz (11.5-14.5) % Plt Count (130-400) K/uL MPV (7.4-10.4) fL Absolute Nucleated RBC (0-0) K/uL Nucleated RBC % (auto) % Sodium (136-145) mmol/L Potassium (3.5-5.1) mmol/L Chloride (98-107) mmol/L Carbon Dioxide (21-32) mmol/L Anion Gap (3-11) BUN (7-18) mg/dl Creatinine (0.6-1.2) mg/dl Est Cr Clr Drug Dosing ml/min Est GFR ( Amer) ml/min Est GFR (Non-Af Amer) ml/min BUN/Creatinine Ratio (10-20) Glucose (70-99) mg/dl POC Glucose (70-99) mg/dl Calcium (8.5-10.1) mg/dl Total Bilirubin (0.2-1) mg/dl Direct Bilirubin (0-0.2) mg/dl AST (15-37) U/L ALT (12-78) Alkaline Phosphatase (45-117) U/L Total Protein (6.4-8.2) gm/dl Albumin (3.4-5.0) gm/dl 25-OH Vitamin D Total 53.1 (30-100) ng/ml Free T3 (2.3-4.2) pg/ml PTH Intact 47.9 (18.4-80.1) pg/ml Diagnostic Findings Reviewed in chart. Medications Administered MAR reviewed in chart. PG Care Time/CCT Total # of Minutes Spent Total Time Spent with Patient: Total time spent is greater than 50% in coordination of care (as documented) at patient's floor/unit and/or counseling patient: Coding Level of Care Code 33878 Initial Inpt Care Lvl 3 Diagnoses Surgical wound, non healing T81.89XA Encounter type: initial encounter Dermatology Procedure Debridement of eschar from the vertex scalp: Site was moistened with sterile water to loosen adherent bandages. Once the bandages were removed, eschar was further moistened with sterile water to loosen from surrounding hair. Edges of eschar were freed from surrounding, residual adherent hair with forceps and gradle scissors. Eschar was then lifted from the site relatively easily. Site was irrigated using a syringe and sterile saline. Once the site was cleansed with saline and the based visualized, area of actively bleeding, exuberant granulation tissue was noted at the right frontal edge. This was cauterized using silver nitrate sticks to stop all active bleeding. Once the field was dried, wound care nurse dressed the site with xeroform gauze, gauze and a gauze wrap/cap to prevent further patient manipulation at the site. Patient tolerated well without complication. (1) Surgical wound, non healing Encounter type: initial encounter Qualified Code(s): T81.89XA - Other complications of procedures, not elsewhere classified, initial encounter
[2021-03-27] MEDS: HYDROCORTISONE 10 MG TAB PO SCH (13:08)
[2021-03-27] MEDS ORDERED: LINEZOLID CONSULT ACTIVE PRN (13:35)
[2021-03-27] MEDS ORDERED: LINEZOLID 600 MG/300 ML D5W IV SCH (15:00)
[2021-03-27 15:06] LABS: Appearance Urine Clear (Clear); Bacteria Urine Automated 2+ (Negative); Bilirubin Urine Negative (Negative); Blood Urine Negative (Negative); Cast Urine Automated 0 /lpf (0-5); Color Urine Yellow; Glucose Urine UA Negative (Negative); Ketones Urine Negative (Negative); Leukocyte Esterase Urine Trace (Negative); Nitrite Urine Negative (Negative); Protein Urine Negative (Negative); RBC Urine Automated 0-4 /hpf (0-4); Specific Gravity Urine 1.006 (1.000-1.030); Urobilinogen Urine Negative (Negative); pH Urine 6.5 (4.5-7.5)
[2021-03-27] MEDS: LINEZOLID 600 MG/300 ML BAG IV SCH (15:24)
[2021-03-27] MEDS: DESMOPRESSIN ACETATE 0.1 MG TAB PO SCH (15:24)
[2021-03-27] MEDS: POTASSIUM CHLORIDE CRTAB 20 MEQ TABCR PO SCH (17:28)
[2021-03-27] MEDS ORDERED: LORazepam 0.5 MG/1 ML VIAL IV STA ×2 (20:09→21:17)
[2021-03-27] MEDS: QUEtiapine FUMARATE 25 MG TABLET PO SCH (20:28)
[2021-03-27] MEDS: ENOXAPARIN INJ 40 MG/0.4 ML SYR SQ SCH (20:28)
[2021-03-27] MEDS: LATANOPROST 0.005% OP SOLN 2.5 ML BTL OP SCH (20:28)
[2021-03-28] MEDS ORDERED: HALOPERIDOL LACTATE 5 MG/ML 1 ML VIAL IM STA (00:32)
[2021-03-28] MEDS ORDERED: LORazepam 1 MG/2 ML VIAL IV STA (02:23)
[2021-03-28] MEDS: LINEZOLID 600 MG/300 ML BAG IV SCH ×3 (02:39→20:15)
[2021-03-28] MEDS: LEVOTHYROXINE SODIUM 125 MCG TABLET PO SCH (05:57)
[2021-03-28] MEDS: DEXTROSE 50% 50 ML SYRINGE IV PRN (07:31)
[2021-03-28 07:43] LABS: BUN Creatinine Ratio 19.1 (10-20); Calcium 9.1 mg/dl (8.5-10.1); Creatinine Clr Calc Pharmacy 42.6 ml/min; Est GFR (African American) 44.9 ml/min; Est GFR (Non-African American) 38.7 ml/min; Potassium 3.6 mmol/L (3.5-5.1)
[2021-03-28] MEDS ORDERED: D5NSS + 20MEQ KCL 20 MEQ/1,000 ML BAG IV SCH (08:00)
[2021-03-28] MEDS: INSULIN ASPART 100 UNITS/ML 3 ML PEN SC SCH ×4 (08:12→20:28)
[2021-03-28] MEDS: POTASSIUM CHLORIDE CRTAB 20 MEQ TABCR PO SCH ×2 (08:14→17:11)
[2021-03-28] MEDS: CALCITRIOL 0.25 MCG CAPSULE PO SCH (08:14)
[2021-03-28] MEDS: CHLORTHALIDONE 25 MG TAB PO SCH (08:14)
[2021-03-28] MEDS: FAMOTIDINE 20 MG TAB PO SCH (08:14)
[2021-03-28] MEDS: MIRABEGRON ER 25 MG TAB PO SCH (08:15)
[2021-03-28] MEDS: LIDOCAINE 5% 1 PATCH TD SCH (08:18)
[2021-03-28] MEDS: BETAMETHASONE DIP AUG (DIPROLENE) 0.05% CR 15 GM TUBE EXT SCH ×2 (08:20→20:18)
[2021-03-28] MEDS ORDERED: INSULIN HUMAN NPH SC ONE ×2 (08:30→17:00)
[2021-03-28 08:40] LABS: Hematocrit (blood only) 43.7 % (37-47); Hemoglobin 14.6 g/dL (12.0-16.0); Mean Corpuscular Hemoglobin 33.4 pg (25-34); Mean Corpuscular Hgb Conc 33.4 g/dL (32-36); Platelet Count 257 K/uL (130-400); RDW Coefficient of Variation 16.3 % (11.5-14.5); RDW Standard Deviation 58.8 fL (36.4-46.3); Red Blood Count 4.37 M/uL (4.2-5.4)
[2021-03-28 08:41] LABS: Basophils # (auto) 0.05 K/uL (0-0.2); Basophils % (auto) 0.4 %; Eosinophils # (auto) 0.45 K/uL (0-0.5); Eosinophils % (auto) 3.4 %; Immature Granulocytes % (auto) 1.5 %; Lymphocytes # (auto) 2.71 K/uL (1.2-3.4); Lymphocytes % (auto) 20.4 %; Monocytes # (auto) 2.18 K/uL (0.11-0.59); Monocytes % (auto) 16.4 %; Neutrophils # (auto) 7.71 K/uL (1.4-6.5); Neutrophils % (auto) 57.9 %; Rouleaux 1+
[2021-03-28] MEDS: HYDROCORTISONE SOD 50 MG in SYRINGE 0 ML IV SCH ×2 (10:40→16:57)
--- NOTE | 2021-03-28 10:45 | Pharmacy Report ---
Pharmacy Glycemic Short Note 2 - Date of Service March 28, 2021 - Glycemic Short BSG Results (Last 24 hours): 03/27/21 03/27/21 03/27/21 11:27 16:27 20:34 Glucose POC Glucose 151 H 252 H 97 03/28/21 03/28/21 03/28/21 06:27 07:25 07:26 Glucose 54 L POC Glucose 57 L* 63 L* 03/28/21 08:06 Glucose POC Glucose 123 H OUTPATIENT ANTIDIABETIC REGIMEN: * U-500 80 units with breakfast, 100 units with lunch per med list (Per outpatient Endo notes 11/14/20 taking 80 units with breakfast and 80 units with dinner) * HbA1c = 6.9% (03/25/21) ASSESSMENT: 03/28: * Patient received a total of 57 units of insulin yesterday (45 units NPH + 12 units bolus) * BSGs were: [phone] mg/dL * Fasting BSG was low at 57 mg/dL this AM * Patient was symptomatic (clammy/confused). She received an amp of D50 and BSG improved to 123 mg/dL. * Likely cause of hypoglycemia was AM NPH being administered 4 hours late yesterday followed by more NPH being given at supper time. Late administration led to hyperglycemia at dinner as well which increased amount of bolus given. * Spoke with RN around 1030 this AM as NPH had not been given again. Instructed RN to administer NPH ALONDRA to prevent stacking this evening. * Patient is to receive a central line at some point today to start D51/2NS+20KCl at 75 mL/hr. * Loosened Novolog parameters today to help prevent hypoglycemia. 03/27: * Yoav received a total of 156 units of insulin yesterday (130 units of U-500 + 10 units IV + 16 units bolus) * BSGs were uncontrolled: [phone] mg/dL * Fasting BSG was 83 mg/dL this AM - at goal * Patient had severe episode of hypoglycemia yesterday evening/early this AM. Baseline confusion in this patient so symptoms were difficult to assess. Required 3 full amps of D50 for each episode of hypoglycemia. * Given low doses of U-500 as an outpatient, age and HbA1c, plan to transition patient to NPH this AM. * Spoke with RN and patient did eat some breakfast this AM, mostly apples auce. * Will start with a conservative NPH dose of ~ 0.2 units/kg this morning. Evening NPH dose will be assessed later in the day. * Will adjust Novolog to have carb coverage at this time. PLAN FOR INPATIENT GLYCEMIC CONTROL: * Basal insulin - change to NPH * NPH 25 units SC AM * NPH 5-15 units SC with dinner (see eMAR for more details) * Bolus insulin - loosened * NovoLog per scale ACHS or Q6hrs while NPO * Goal Range: Low 120 mg/dL - High 150 mg/dL * Correction Factor: 30 mg/dL/unit * Nutritional / Prandial insulin per carb ratio of 1 unit per 10 grams CHO consumed PLAN FOR DISCHARGE: * HbA1c was 6.9% during this admission. This is at goal of less than 8% given her age and comorbidities. * Patient follows with [facility] Endocrinology as an outpatient. Defer any insulin adjustments to them.
[2021-03-28] MEDS: FAMOTIDINE 20 MG in SYRINGE 3 ML IV SCH (12:47)
[2021-03-28] MEDS: DOCUSATE SODIUM 100 MG CAP PO SCH (12:47)
[2021-03-28] MEDS ORDERED: LORazepam 1 MG/2 ML VIAL IV PRN (13:46)
--- NOTE | 2021-03-28 13:58 | Hospitalist Progress Note ---
Date of Service March 28, 2021 Assessment & Plan (1) Generalized weakness: Plan: Multifactorial. 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 In August of 2013, she underwent surgery for a meningioma. Yoav developed seizures post operatively. 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 This was complicated by intracranial hemorrhage post- operatively. She has an unhealed wound on her scalp following repeat craniotomy for which she is maintained on chronic suppressive antibiotics. Post-operative recovery was complicated by a fall at [facility] which resulted in cervical spine fractures. At this time, Yoav is chronically wheelchair dependent. She requires 24 hour assistance from a caregiver which includes assistance with most every activity to daily living." Ddx to include adrenal insufficiency (no hypotension), infection (chronic elevations WBC), dehydration (reported less oral intake per outpatient notes, suspect advancement of dementia as well) Reportedly weak, more confused, ambulatory dysfunction and abdominal pain for the last few days per but hadn't been sleeping x several days and this has happened in the past--> got some sleep but then ing at night with picking at her fungating lesion/bleeding and restraints ordered (since d/c'd) She is to be on chronic suppressive therapy w/ cefdinir 300mg daily for scalp not ordered on admit, resumed TSH undetectable * -- unreliable in patient with panhypopituitarism. Free T4 wnl 1.42 and continued usual Synthroid. T3 in AM. Follows with Dr Fung CXR negative on admission CTA/P Small nondisplaced fracture within the anterior aspect of the T9 vertebral body. No bowel wall thickening or obstruction. Normal appendix. 3. Colonic diverticulosis. No evidence for acute diverticulitis. 4. Prior cholecystectomy with a small amount of pneumobilia, unchanged. 5. Left-sided nephrolithiasis. No ureteral stones. No hydronephrosis CT Head . Study markedly compromised by motion artifact. No acute intracranial findings identified. 4.2 x 2.3 cm mass-like abnormality overlying the right frontal craniotomy. This is suboptimally assessed on this exam given motion artifact. This is indeterminate and recurrent meningioma with extracranial extension cannot be excluded. Attempt brain MRI scan todayMarch 28 CT Thoracic spine with acute nondisplaced fx T9, additional findings at T12-L1 as below * Check PTH, Vit D -- pending * On calcitriol (may need held but will also check Vit D in AM) * Ortho consult appreciated PT/OT evals ordered (2) Scalp lesion: Plan: Known lesion secondary to meningioma extraction, poor wound healing and exposed mesh. 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 Hypokalemia corrected. Hypernatremia should improve with hypotonic IV fluids. Metabolic Encephalopathy --multifactorial. Supportive care (4) History of basal cell carcinoma: Plan: hx MOhs procedure above eye (5) Thoracic compression fracture: Plan: CT Thoracic spine * Acute appearing nondisplaced oblique fracture through the mid to inferior T9 vertebral body. Additional acute appearing transverse fracture through anterior osteophytes at the T12-L1 level which may extend through the disc space. These fractures do not appear to extend into the posterior elements. However, stability of these fractures is difficult to assess by imaging given extensive anterior osteophytosis of the thoracic spine. Ortho consult -- would not pursue surgery in patient with multiple co- morbidities * --> Suggest f/u CT scan in 1 week to assess fracture patterns -- if no changes would continue activity as tolerated * ?brace by orthotics if able to tolerate when out of bed but doubt patient able to tolerate/would be compliant with such Tylenol, lidocaine patch, tramadol prn pain (6) Hypertension: Plan: Chronic. Blood pressure elevated 182/109 on admission * discontinue Chlorthalidone on March 28. Treat hypertension as needed intravenously (7) Type 2 diabetes mellitus, with long-term current use of insulin: Plan: Glycemic management consultation. Patient on U500 at home. Hypoglycemic in the ER and again overnight March 26. U5 100 switch to NPH insulin on March 27. We will continue to monitor frequent Accu-Cheks. Monitor BSGs (8) GERD (gastroesophageal reflux disease): Plan: Pepcid 20mg po qAM while inpatient (9) Central hypothyroidism: Plan: Chronic -Continue Synthroid TSH undetectable (not reliable with above), however T4 wnl 1.42. (10) Hypokalemia: Plan: Corrected. Chlorthalidone discontinued. Serial lab studies. (11) Hypernatremia: Plan: Should improve with hypotonic IV fluids. Serial lab studies. Hx DI. IV DDAVP given. (12) Dementia: Plan: Chronic. Supportive care. Now on low dose seroquel HS for sundowning/agitation. Plan: Ppx - Lovenox SQ Code Status _--- CONFIRMED LEVEL 1 with on phone 03/24 Continue PT/OT Disposition: To be determined Admission and Anticipated Discharge Date Admission Date: March 23, 2021 Subjective Awake but disoriented. Intermittent agitated behavior according to nursing staff. Will predose intravenous Ativan prior to brain MRI scan attempt today. Oral Cortef switched to intravenous hydrocortisone until she is more stable and able to take oral medications on a steady basis. Hypotonic IV fluids noted since sodium continues to rise. Mild hypokalemia has been corrected. Will discontinue chlorthalidone. Talbert catheter placed due to incontinence. Review of Systems Review of Systems: Review of systems cannot be obtained due to baseline confusion Physical Exam Physical Exam: General-awake but disoriented, no fevers, no chills HEENT-large area on superior scalp that is ulcerated with mesh visible and tumor mass that is probable meningioma. Pupils equal and reactive to light, extraocular muscles intact Neck-no lymphadenopathy or thyromegaly, trachea midline Chest-clear to auscultation percussion. No rales wheezing or rhonchi Cardiac-regular rate and rhythm, normal S1 and S2, no murmurs Abdomen-normal bowel sounds, nontender, no hepatosplenomegaly Extremities-no cyanosis, clubbing, or edema Neuro-cranial nerves II through XII intact, motor and sensory function within normal limits, strength symmetrical , no focal deficits Psych- Baseline confusion Results & Data Results & Data ([facility]) Vital Signs (Past 12 Hours) Vital Signs Temp Pulse Resp BP Pulse Ox 03/28/21 11:13 37.4 C 102 H 20 128/83 93 03/28/21 07:35 36.9 C 100 H 20 154/78 H 94 PG Care Time/CCT Total # of Minutes Spent Total Time Spent with Patient: Total time spent is greater than 50% in coordination of care (as documented) at patient's floor/unit and/or counseling patient: Coding Level of Care Code 39321 Subseq Hosp Care Lvl 3 Diagnoses Generalized weakness R53.1 Scalp lesion L98.9 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) E23.0 History of basal cell carcinoma Z85.828 Thoracic compression fracture S22.000A Hypertension I10 Hypertension type: essential hypertension Type 2 diabetes mellitus, with long-term current use of insulin E11.22; N18.3; Z79.4 Diabetes mellitus complication status: with kidney complications Diabetes mellitus complication detail: with chronic kidney disease Chronic kidney disease stage: stage 3 (moderate) GERD (gastroesophageal reflux disease) K21.9 Central hypothyroidism E03.8 Hypokalemia E87.6 Hypernatremia E87.0 Dementia F03.90 (1) Hypertension Hypertension type: essential hypertension Qualified Code(s): I10 - Essential (primary) hypertension (2) Type 2 diabetes mellitus, with long-term current use of insulin Diabetes mellitus complication status: with kidney complications Diabetes mellitus complication detail: with chronic kidney disease Chronic kidney disease stage: stage 3 (moderate) Qualified Code(s): E11.22 - Type 2 diabetes mellitus with diabetic chronic kidney disease; N18.3 - Chronic kidney disease, stage 3 (moderate); Z79.4 - emt intermediate (current) use of insulin
[2021-03-28] MEDS ORDERED: LORazepam 1 MG/2 ML VIAL IV ONE (16:20)
[2021-03-28] MEDS: DESMOPRESSIN ACETATE 0.1 MG TAB PO SCH (17:11)
[2021-03-28] MEDS: D5W AND 1/2NSS + 20MEQ KCL 20 MEQ/1,000 ML BAG IV SCH (20:14)
[2021-03-28] MEDS: QUEtiapine FUMARATE 25 MG TABLET PO SCH (20:18)
[2021-03-28] MEDS: ENOXAPARIN INJ 40 MG/0.4 ML SYR SQ SCH (20:18)
[2021-03-28] MEDS: LATANOPROST 0.005% OP SOLN 2.5 ML BTL OP SCH (20:19)
[2021-03-28] MEDS ORDERED: LORazepam 1 MG/2 ML VIAL IV SCH (21:30)
[2021-03-28] MEDS ORDERED: Nursing to Pharmacy Communication SCH (23:45)
[2021-03-29] MEDS ORDERED: LORazepam 1 MG/2 ML VIAL IV STA (00:43)
[2021-03-29] MEDS: HYDROCORTISONE SOD 50 MG in SYRINGE 0 ML IV SCH ×3 (01:57→17:16)
[2021-03-29] MEDS: LINEZOLID 600 MG/300 ML BAG IV SCH (02:03)
[2021-03-29] MEDS: LEVOTHYROXINE SODIUM 125 MCG TABLET PO SCH (06:15)
[2021-03-29 06:28] LABS: Hematocrit (blood only) 40.5 % (37-47); Hemoglobin 13.3 g/dL (12.0-16.0); Mean Corpuscular Hemoglobin 33.4 pg (25-34); Mean Corpuscular Hgb Conc 32.8 g/dL (32-36); Mean Corpuscular Volume 101.8 fL (80-100); Mean Platelet Volume 12.5 fL (7.4-10.4); Platelet Count 221 K/uL (130-400); RDW Coefficient of Variation 16.3 % (11.5-14.5); RDW Standard Deviation 61.3 fL (36.4-46.3); Red Blood Count 3.98 M/uL (4.2-5.4); White Blood Count 11.14 K/uL (4.8-10.8)
[2021-03-29 06:59] LABS: BUN Creatinine Ratio 17.1 (10-20); Calcium 8.9 mg/dl (8.5-10.1); Creatinine Clr Calc Pharmacy 36.5 ml/min; Est GFR (African American) 39.2 ml/min; Est GFR (Non-African American) 33.8 ml/min; Potassium 3.5 mmol/L (3.5-5.1)
[2021-03-29 07:02] LABS: ALC (manual) 0.49 K/uL (1.2-3.4); ANC (manual) 10.06 K/uL (1.4-6.5); Lymphocytes # (manual) 0.49 K/uL (1.2-3.4); Lymphocytes % (manual) 4.4 %; Monocytes # (manual) 0.59 K/uL (0.11-0.59); Monocytes % (manual) 5.3 %; Neutrophils # (manual) 10.06 K/uL (1.4-6.5); Neutrophils % (manual) 90.3 %
[2021-03-29] MEDS ORDERED: INSULIN HUMAN NPH SC ONE (08:00)
[2021-03-29] MEDS: MIRABEGRON ER 25 MG TAB PO SCH (08:50)
[2021-03-29] MEDS: POTASSIUM CHLORIDE CRTAB 20 MEQ TABCR PO SCH ×2 (08:50→17:18)
[2021-03-29] MEDS: FAMOTIDINE 20 MG TAB PO SCH (08:50)
[2021-03-29] MEDS: LIDOCAINE 5% 1 PATCH TD SCH (08:51)
[2021-03-29] MEDS: DOCUSATE SODIUM 100 MG CAP PO SCH (08:51)
[2021-03-29] MEDS: CALCITRIOL 0.25 MCG CAPSULE PO SCH (08:51)
[2021-03-29] MEDS: INSULIN ASPART 100 UNITS/ML 3 ML PEN SC SCH ×4 (08:53→21:02)
[2021-03-29] MEDS: INSULIN HUMAN NPH SC SCH ×2 (08:54→17:16)
[2021-03-29] MEDS: D5W AND 1/2NSS + 20MEQ KCL 20 MEQ/1,000 ML BAG IV SCH (10:06)
[2021-03-29] MEDS: FAMOTIDINE 20 MG in SYRINGE 3 ML IV SCH (10:07)
[2021-03-29] MEDS: BETAMETHASONE DIP AUG (DIPROLENE) 0.05% CR 15 GM TUBE EXT SCH ×2 (10:07→21:03)
--- NOTE | 2021-03-29 10:46 | Pharmacy Report ---
Pharmacy Glycemic Short Note 2 - Date of Service March 29, 2021 - Glycemic Short BSG Results (Last 24 hours): 03/28/21 03/28/21 03/28/21 11:27 16:25 20:21 Glucose POC Glucose 224 H 284 H 172 H 03/29/21 03/29/21 05:48 07:32 Glucose 263 H POC Glucose 233 H OUTPATIENT ANTIDIABETIC REGIMEN: * U-500 80 units with breakfast, 100 units with lunch per med list (Per outpatient Endo notes 11/14/20 taking 80 units with breakfast and 80 units with dinner) * HbA1c = 6.9% (03/25/21) ASSESSMENT: 03/29: * Yoav received a total of 55 units of insulin yesterday (40 units of NPH + 15 units Novolog) * BSGs were uncontrolled: [phone] mg/dL * Dextrose fluids were started around 10pm last evening * Fasting BSG was elevated at 233 mg/dL this AM * Assuming this was secondary to dextrose fluids * Will increase NPH today to account for dextrose fluids * Tightened Novolog as well 03/28: * Patient received a total of 57 units of insulin yesterday (45 units NPH + 12 units bolus) * BSGs were: 96-361-972-97 mg/dL * Fasting BSG was low at 57 mg/dL this AM * Patient was symptomatic (clammy/confused). She received an amp of D50 and BSG improved to 123 mg/dL. * Likely cause of hypoglycemia was AM NPH being administered 4 hours late yesterday followed by more NPH being given at supper time. Late administration led to hyperglycemia at dinner as well which increased amount of bolus given. * Spoke with RN around 1030 this AM as NPH had not been given again. Instructed RN to administer NPH ALONDRA to prevent stacking this evening. * Patient is to receive a central line at some point today to start D51/2NS+20KCl at 75 mL/hr. * Loosened Novolog parameters today to help prevent hypoglycemia. 03/27: * Yoav received a total of 156 units of insulin yesterday (130 units of U-500 + 10 units IV + 16 units bolus) * BSGs were uncontrolled: [phone] mg/dL * Fasting BSG was 83 mg/dL this AM - at goal * Patient had severe episode of hypoglycemia yesterday evening/early this AM. Baseline confusion in this patient so symptoms were difficult to assess. Required 3 full amps of D50 for each episode of hypoglycemia. * Given low doses of U-500 as an outpatient, age and HbA1c, plan to transition patient to NPH this AM. * Spoke with RN and patient did eat some breakfast this AM, mostly applesauce. * Will start with a conservative NPH dose of ~ 0.2 units/kg this morning. Evening NPH dose will be assessed later in the day. * Will adjust Novolog to have carb coverage at this time. PLAN FOR INPATIENT GLYCEMIC CONTROL: * Basal insulin - increased * NPH 40-50 units SC BIDM (see eMAR for more details) * Bolus insulin - tightened * NovoLog per scale ACHS or Q6hrs while NPO * Goal Range: Low 120 mg/dL - High 150 mg/dL * Correction Factor: 25 mg/dL/unit * Nutritional / Prandial insulin per carb ratio of 1 unit per 8 grams CHO consumed PLAN FOR DISCHARGE: * HbA1c was 6.9% during this admission. This is at goal of less than 8% given her age and comorbidities. * Patient follows with [facility] Endocrinology as an outpatient. Defer any insulin adjustments to them but would consider transition to NPH given low U-500 doses.
[2021-03-29] MEDS: CEFDINIR 300 MG CAP PO SCH ×4 (10:50→12:24)
--- NOTE | 2021-03-29 15:23 | Hospitalist Progress Note ---
Date of Service March 29, 2021 Assessment & Plan (1) Hypernatremia: Plan: likely multifactorial, due to poor po intake, dehydration, also has a history of diabetes insipidus, but has not been taking her oral medications will change her DPPV to IV Serum Na 154 today, will change IV fluids to dextrose water recheck BMP tomorrow (2) Generalized weakness: Plan: Multifactorial. 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 In August of 2013, she underwent surgery for a meningioma. Yoav developed seizures post operatively. 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 This was complicated by intracranial hemorrhage post- operatively. She has an unhealed wound on her scalp following repeat craniotomy for which she is maintained on chronic suppressive antibiotics. Post-operative recovery was complicated by a fall at [facility] which resulted in cervical spine fractures. At this time, Yoav is chronically wheelchair dependent. She requires 24 hour assistance from a caregiver which includes assistance with most every activity to daily living." Ddx to include adrenal insufficiency (no hypotension), infection (chronic elevations WBC), dehydration (reported less oral intake per outpatient notes, suspect advancement of dementia as well) Reportedly weak, more confused, ambulatory dysfunction and abdominal pain for the last few days per but hadn't been sleeping x several days and this has happened in the past--> got some sleep but then ing at night with picking at her fungating lesion/bleeding and restraints ordered (since d/c'd) She is to be on chronic suppressive therapy w/ cefdinir 300mg daily for scalp not ordered on admit, resumed TSH undetectable * -- unreliable in patient with panhypopituitarism. Free T4 wnl 1.42 and continued usual Synthroid. T3 in AM. Follows with Dr Fung CXR negative on admission CTA/P Small nondisplaced fracture within the anterior aspect of the T9 vertebral body. No bowel wall thickening or obstruction. Normal appendix. 3. Colonic diverticulosis. No evidence for acute diverticulitis. 4. Prior cholecystectomy with a small amount of pneumobilia, unchanged. 5. Left-sided nephrolithiasis. No ureteral stones. No hydronephrosis CT Head . Study markedly compromised by motion artifact. No acute intracranial findings identified. 4.2 x 2.3 cm mass-like abnormality overlying the right frontal craniotomy. This is suboptimally assessed on this exam given motion artifact. This is indeterminate and recurrent meningioma with extracranial extension cannot be excluded. Attempt brain MRI scan today, March 28 CT Thoracic spine with acute nondisplaced fx T9, additional findings at T12-L1 as below * Check PTH, Vit D -- pending * On calcitriol (may need held but will also check Vit D in AM) * Ortho consult appreciated PT/OT evals ordered (3) Scalp lesion: Plan: Known lesion secondary to meningioma extraction, poor wound healing and exposed mesh. 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 Hypokalemia corrected. Hypernatremia should improve with hypotonic IV fluids. Metabolic Encephalopathy --multifactorial. Supportive care (5) History of basal cell carcinoma: Plan: hx MOhs procedure above eye (6) Thoracic compression fracture: Plan: CT Thoracic spine * Acute appearing nondisplaced oblique fracture through the mid to inferior T9 vertebral body. Additional acute appearing transverse fracture through anterior osteophytes at the T12-L1 level which may extend through the disc space. These fractures do not appear to extend into the posterior elements. However, stability of these fractures is difficult to assess by imaging given extensive anterior osteophytosis of the thoracic spine. Ortho consult -- would not pursue surgery in patient with multiple co- morbidities * --> Suggest f/u CT scan in 1 week to assess fracture patterns -- if no changes would continue activity as tolerated * ?brace by orthotics if able to tolerate when out of bed but doubt patient able to tolerate/would be compliant with such Tylenol, lidocaine patch, tramadol prn pain (7) Hypertension: Plan: Chronic. Blood pressure elevated 182/109 on admission * discontinue Chlorthalidone on March 28. Treat hypertension as needed intravenously (8) Type 2 diabetes mellitus, with long-term current use of insulin: Plan: Glycemic management consultation. Patient on U500 at home. Hypoglycemic in the ER and again overnight March 26. U5 100 switch to NPH insulin on March 27. We will continue to monitor frequent Accu-Cheks. 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 (11) Hypokalemia: Plan: Corrected. Chlorthalidone discontinued. Serial lab studies. (12) Dementia: Plan: Chronic. Supportive care. Now on low dose seroquel HS for sundowning/agitation. Plan: Ppx - Lovenox SQ Code Status _--- CONFIRMED LEVEL 1 with on phone 03/24 Continue PT/OT Disposition: To be determined Admission and Anticipated Discharge Date Admission Date: March 23, 2021 Subjective patient seen and examined, sitter by the bedside, she is somnolent, likely due to ativan Review of Systems Review of Systems: unable to obtain Physical Exam Physical Exam: The patient is somnolent, with clean bandage on head HEENT--PERRL, EOMI, mucous membranes and oropharynx mildly dry Neck--supple. No JVD. No bruits. Thyroid normal, trachea midline, no adenopathy. Heart--normal S1 and S2. No murmurs, rubs or gallops. Lungs--clear bilaterally, no respiratory distress, no accessory muscle use. Abdomen--normal bowel sounds and soft. Mild epigastric and left sided abdominal pain Extremities--no cyanosis or clubbing. No edema. Dermatologic--normal skin turgor, normal color, no abnormal lymph nodes, no rash. Neurologic--cranial nerves II through XII grossly intact. Rheumatologic--normal range of motion. Psychiatric--unable to assess Results & Data Results & Data ([facility]) Vital Signs (Past 12 Hours) Vital Signs Temp Pulse Resp BP BP Pulse Ox 03/29/21 10:57 98.6 F 100 H 16 116/66 96 03/29/21 07:27 97.3 F L 97 H 18 156/100 H 94 03/29/21 04:00 97.0 F L 87 18 145/91 H 97 Laboratory Results Laboratory Results - last 24 hr 03/28/21 03/28/21 03/29/21 16:25 20:21 05:48 WBC 11.14 H RBC 3.98 L Hgb 13.3 Hct 40.5 MCV 101.8 H MCH 33.4 MCHC 32.8 RDW Std Deviation 61.3 H RDW Coeff of Fritz 16.3 H Plt Count 221 MPV 12.5 H Neutrophils % (Manual) 90.3 Lymphocytes % (Manual) 4.4 Monocytes % (Manual) 5.3 Neutrophils # (Manual) 10.06 H Total Absolute Neuts 10.06 H Lymphocytes # (Manual) 0.49 L Total Abs Lymphocytes 0.49 L Monocytes # (Manual) 0.59 Sodium Potassium Chloride Carbon Dioxide Anion Gap BUN Creatinine Est Cr Clr Drug Dosing Est GFR ( Amer) Est GFR (Non-Af Amer) BUN/Creatinine Ratio Glucose POC Glucose 284 H 172 H Calcium 03/29/21 03/29/21 03/29/21 05:48 07:32 11:26 WBC RBC Hgb Hct MCV MCH MCHC RDW Std Deviation RDW Coeff of Fritz Plt Count MPV Neutrophils % (Manual) Lymphocytes % (Manual) Monocytes % (Manual) Neutrophils # (Manual) Total Absolute Neuts Lymphocytes # (Manual) Total Abs Lymphocytes Monocytes # (Manual) Sodium 154 H Potassium 3.5 Chloride 122 H Carbon Dioxide 27 Anion Gap 5.0 BUN 24 H Creatinine 1.42 H Est Cr Clr Drug Dosing 36.5 Est GFR ( Amer) 39.2 Est GFR (Non-Af Amer) 33.8 BUN/Creatinine Ratio 17.1 Glucose 263 H POC Glucose 233 H 249 H Calcium 8.9 PG Care Time/CCT Total # of Minutes Spent Total Time Spent with Patient: Total time spent is greater than 50% in coordination of care (as documented) at patient's floor/unit and/or counseling patient: Coding Level of Care Code 49918 Subseq Hosp Care Lvl 2 Diagnoses Generalized weakness R53.1 Scalp lesion L98.9 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) E23.0 History of basal cell carcinoma Z85.828 Thoracic compression fracture S22.000A Hypertension I10 Hypertension type: essential hypertension Type 2 diabetes mellitus, with long-term current use of insulin E11.22; N18.3; Z79.4 Diabetes mellitus complication status: with kidney complications Diabetes mellitus complication detail: with chronic kidney disease Chronic kidney disease stage: stage 3 (moderate) GERD (gastroesophageal reflux disease) K21.9 Central hypothyroidism E03.8 Hypokalemia E87.6 Hypernatremia E87.0 Dementia F03.90 (1) Hypertension Hypertension type: essential hypertension Qualified Code(s): I10 - Essential (primary) hypertension (2) Type 2 diabetes mellitus, with long-term current use of insulin Diabetes mellitus complication status: with kidney complications Diabetes mellitus complication detail: with chronic kidney disease Chronic kidney disease stage: stage 3 (moderate) Qualified Code(s): E11.22 - Type 2 diabetes mellitus with diabetic chronic kidney disease; N18.3 - Chronic kidney disease, stage 3 (moderate); Z79.4 - halfway (current) use of insulin
[2021-03-29] MEDS: SODIUM CHLORIDE 0.9% IV SCH (17:15)
[2021-03-29] MEDS: DESMOPRESSIN ACETATE IV SCH (17:15)
[2021-03-29] MEDS: DESMOPRESSIN ACETATE 0.1 MG TAB PO SCH (17:16)
[2021-03-29] MEDS: DEXTROSE 5% 1,000 ML IV SCH (17:34)
[2021-03-29] MEDS ORDERED: HALOPERIDOL LACTATE 5 MG/ML 1 ML VIAL IM STA (18:57)
[2021-03-29] MEDS: QUEtiapine FUMARATE 25 MG TABLET PO SCH (21:00)
[2021-03-29] MEDS: LATANOPROST 0.005% OP SOLN 2.5 ML BTL OP SCH (21:01)
[2021-03-29] MEDS: ENOXAPARIN INJ 40 MG/0.4 ML SYR SQ SCH (21:01)
[2021-03-29] MEDS: traMADol HCL 50 MG TABLET PO PRN (21:47)
[2021-03-30] MEDS: HYDROCORTISONE SOD 50 MG in SYRINGE 0 ML IV SCH ×3 (01:30→16:47)
[2021-03-30] MEDS: LEVOTHYROXINE SODIUM 125 MCG TABLET PO SCH (05:40)
[2021-03-30] MEDS: DEXTROSE 5% 1,000 ML IV SCH ×2 (05:41→18:06)
[2021-03-30 05:54] LABS: Basophils # (auto) 0.02 K/uL (0-0.2); Basophils % (auto) 0.2 %; Eosinophils # (auto) 0.02 K/uL (0-0.5); Eosinophils % (auto) 0.2 %; Hematocrit (blood only) 36.6 % (37-47); Hemoglobin 11.9 g/dL (12.0-16.0); Immature Granulocytes % (auto) 1.6 %; Lymphocytes # (auto) 1.84 K/uL (1.2-3.4); Lymphocytes % (auto) 14.8 %; Mean Corpuscular Hemoglobin 33.4 pg (25-34); Mean Corpuscular Hgb Conc 32.5 g/dL (32-36); Mean Corpuscular Volume 102.8 fL (80-100); Mean Platelet Volume 11.7 fL (7.4-10.4); Monocytes # (auto) 1.01 K/uL (0.11-0.59); Monocytes % (auto) 8.1 %; Neutrophils # (auto) 9.36 K/uL (1.4-6.5); Neutrophils % (auto) 75.1 %; Nucleated RBC # (auto) 0.07 K/uL (0-0); Nucleated RBC % (auto) 0.6 %; Platelet Count 185 K/uL (130-400); RDW Coefficient of Variation 16.1 % (11.5-14.5); RDW Standard Deviation 60.8 fL (36.4-46.3); Red Blood Count 3.56 M/uL (4.2-5.4); White Blood Count 12.45 K/uL (4.8-10.8)
[2021-03-30 07:04] LABS: BUN Creatinine Ratio 21.7 (10-20); Calcium 8.2 mg/dl (8.5-10.1); Est GFR (African American) 50.6 ml/min; Est GFR (Non-African American) 43.7 ml/min; Potassium 2.9 mmol/L (3.5-5.1)
[2021-03-30] MEDS: INSULIN ASPART 100 UNITS/ML 3 ML PEN SC SCH ×4 (08:10→21:06)
[2021-03-30] MEDS: POTASSIUM CHLORIDE CRTAB 20 MEQ TABCR PO SCH ×2 (08:11→16:51)
[2021-03-30] MEDS: MIRABEGRON ER 25 MG TAB PO SCH (08:11)
[2021-03-30] MEDS: CEFDINIR 300 MG CAP PO SCH (08:11)
[2021-03-30] MEDS: FAMOTIDINE 20 MG TAB PO SCH (08:12)
[2021-03-30] MEDS: DOCUSATE SODIUM 100 MG CAP PO SCH (08:12)
[2021-03-30] MEDS: CALCITRIOL 0.25 MCG CAPSULE PO SCH (08:12)
[2021-03-30] MEDS: LIDOCAINE 5% 1 PATCH TD SCH (08:13)
[2021-03-30] MEDS: FAMOTIDINE 20 MG in SYRINGE 3 ML IV SCH (08:16)
[2021-03-30] MEDS: BETAMETHASONE DIP AUG (DIPROLENE) 0.05% CR 15 GM TUBE EXT SCH ×2 (08:19→21:07)
[2021-03-30] MEDS ORDERED: INSULIN HUMAN NPH SC SCH ×2 (09:15→17:00)
[2021-03-30] MEDS: INSULIN HUMAN NPH SC SCH (10:37)
[2021-03-30] MEDS: DESMOPRESSIN ACETATE 0.1 MG TAB PO SCH (10:38)
--- NOTE | 2021-03-30 10:46 | Pharmacy Report ---
Pharmacy Glycemic Short Note 2 - Date of Service March 30, 2021 - Glycemic Short BSG Results (Last 24 hours): 03/29/21 03/29/21 03/29/21 11:26 16:34 20:19 Glucose POC Glucose 249 H 180 H 87 03/30/21 03/30/21 05:24 07:40 Glucose 88 POC Glucose 97 OUTPATIENT ANTIDIABETIC REGIMEN: * U-500 80 units with breakfast, 100 units with lunch per med list (Per outpatient Endo notes 11/14/20 taking 80 units with breakfast and 80 units with dinner) * HbA1c = 6.9% (03/25/21) ASSESSMENT: 03/30 * Pt has received 116 units of insulin over the past 24hrs * 100 units of basal with NPH * 16 units of bolus with NovoLog * BSGs [phone] mg/dl * Pt remains on Hydrocortisone 50mg IV Q 8hrs * BSGs trending down with current orders. Regimen is very basal heavy since we were previously dosing U-500 which covers both basal and prandial needs. * Pt refusing to eat this morning. Discussed with RN; she was given Seroquel and IM haldol last night so shes a bit sleepy this morning. Pt stated she doesnt want to eat and spit a few bites out at RN. * Will empirically lower NPH dosing to re-distribute regimen more 50:50% basal:prandial since PO intake uncertain 03/29: * Yoav received a total of 55 units of insulin yesterday (40 units of NPH + 15 units Novolog) * BSGs were uncontrolled: [phone] mg/dL * Dextrose fluids were started around 10pm last evening * Fasting BSG was elevated at 233 mg/dL this AM * Assuming this was secondary to dextrose fluids * Will increase NPH today to account for dextrose fluids * Tightened Novolog as well 03/28: * Patient received a total of 57 units of insulin yesterday (45 units NPH + 12 units bolus) * BSGs were: [phone] mg/dL * Fasting BSG was low at 57 mg/dL this AM * Patient was symptomatic (clammy/confused). She received an amp of D50 and BSG improved to 123 mg/dL. * Likely cause of hypoglycemia was AM NPH being administered 4 hours late yesterday followed by more NPH being given at supper time. Late administration led to hyperglycemia at dinner as well which increased amount of bolus given. * Spoke with RN around 1030 this AM as NPH had not been given again. Instructed RN to administer NPH ALONDRA to prevent stacking this evening. * Patient is to receive a central line at some point today to start D51/2NS+20KCl at 75 mL/hr. * Loosened Novolog parameters today to help prevent hypoglycemia. 03/27: * Yoav received a total of 156 units of insulin yesterday (130 units of U-500 + 10 units IV + 16 units bolus) * BSGs were uncontrolled: [phone] mg/dL * Fasting BSG was 83 mg/dL this AM - at goal * Patient had severe episode of hypoglycemia yesterday evening/early this AM. Baseline confusion in this patient so symptoms were difficult to assess. Required 3 full amps of D50 for each episode of hypoglycemia. * Given low doses of U-500 as an outpatient, age and HbA1c, plan to transition patient to NPH this AM. * Spoke with RN and patient did eat some breakfast this AM, mostly applesauce. * Will start with a conservative NPH dose of ~ 0.2 units/kg this morning. Evening NPH dose will be assessed later in the day. * Will adjust Novolog to have carb coverage at this time. PLAN FOR INPATIENT GLYCEMIC CONTROL: * Basal insulin * NPH 30 units SQ x 1 dose this AM for decrease PO intake then, * NPH 30-40-50 units SC BIDM (see eMAR for more details) * Bolus insulin * NovoLog per scale ACHS or Q6hrs while NPO * Goal Range: Low 120 mg/dL - High 150 mg/dL * Correction Factor: 25 mg/dL/unit * Nutritional / Prandial insulin per carb ratio of 1 unit per 8 grams CHO c onsumed PLAN FOR DISCHARGE: * HbA1c was 6.9% during this admission. This is at goal of less than 8% given her age and comorbidities. * Patient follows with [facility] Endocrinology as an outpatient. Defer any insulin adjustments to them but would consider transition to NPH given low U-500 doses.
[2021-03-30] MEDS: DESMOPRESSIN ACETATE IV SCH (11:03)
[2021-03-30] MEDS: SODIUM CHLORIDE 0.9% IV SCH (11:03)
--- NOTE | 2021-03-30 11:05 | Hospitalist Progress Note ---
Date of Service March 30, 2021 Assessment & Plan (1) Hypernatremia: Plan: Improving today, likely multifactorial, due to poor po intake, dehydration, also has a history of diabetes insipidus, but has not been taking her oral medications Serum Na 146 today, will continue d water and DPPV recheck BMP tomorrow (2) Generalized weakness: Plan: Multifactorial. 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 In August of 2013, she underwent surgery for a meningioma. Yoav developed seizures post operatively. 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 This was complicated by intracranial hemorrhage post- operatively. She has an unhealed wound on her scalp following repeat craniotomy for which she is maintained on chronic suppressive antibiotics. Post-operative recovery was complicated by a fall at [facility] which resulted in cervical spine fractures. At this time, Yoav is chronically wheelchair dependent. She requires 24 hour assistance from a caregiver which includes assistance with most every activity to daily living." Ddx to include adrenal insufficiency (no hypotension), infection (chronic elevations WBC), dehydration (reported less oral intake per outpatient notes, suspect advancement of dementia as well) Reportedly weak, more confused, ambulatory dysfunction and abdominal pain for the last few days per but hadn't been sleeping x several days and this has happened in the past--> got some sleep but then ing at night with picking at her fungating lesion/bleeding and restraints ordered (since d/c'd) She is to be on chronic suppressive therapy w/ cefdinir 300mg daily for scalp not ordered on admit, resumed TSH undetectable * -- unreliable in patient with panhypopituitarism. Free T4 wnl 1.42 and continued usual Synthroid. T3 in AM. Follows with Dr Fung CXR negative on admission CTA/P Small nondisplaced fracture within the anterior aspect of the T9 vertebral body. No bowel wall thickening or obstruction. Normal appendix. 3. Colonic diverticulosis. No evidence for acute diverticulitis. 4. Prior cholecystectomy with a small amount of pneumobilia, unchanged. 5. Left-sided nephrolithiasis. No ureteral stones. No hydronephrosis CT Head . Study markedly compromised by motion artifact. No acute intracranial findings identified. 4.2 x 2.3 cm mass-like abnormality overlying the right frontal craniotomy. This is suboptimally assessed on this exam given motion artifact. This is indeterminate and recurrent meningioma with extracranial extension cannot be excluded. Attempt brain MRI scan today, March 28 CT Thoracic spine with acute nondisplaced fx T9, additional findings at T12-L1 as below * Check PTH, Vit D -- pending * On calcitriol (may need held but will also check Vit D in AM) * Ortho consult appreciated PT/OT evals ordered (3) Scalp lesion: Plan: Known lesion secondary to meningioma extraction, poor wound healing and exposed mesh. 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 Hypokalemia corrected. Hypernatremia should improve with hypotonic IV fluids. Metabolic Encephalopathy --multifactorial. Supportive care (5) History of basal cell carcinoma: Plan: hx MOhs procedure above eye (6) Thoracic compression fracture: Plan: CT Thoracic spine * Acute appearing nondisplaced oblique fracture through the mid to inferior T9 vertebral body. Additional acute appearing transverse fracture through anterior osteophytes at the T12-L1 level which may extend through the disc space. These fractures do not appear to extend into the posterior elements. However, stability of these fractures is difficult to assess by imaging given extensive anterior osteophytosis of the thoracic spine. Ortho consult -- would not pursue surgery in patient with multiple co- morbidities * --> Suggest f/u CT scan in 1 week to assess fracture patterns -- if no changes would continue activity as tolerated * ?brace by orthotics if able to tolerate when out of bed but doubt patient able to tolerate/would be compliant with such Tylenol, lidocaine patch, tramadol prn pain (7) Hypertension: Plan: Continue to monitor BP, 167/79 today continue home meds (8) Type 2 diabetes mellitus, with long-term current use of insulin: Plan: Glycemic management consultation. Patient on U500 at home. Hypoglycemic in the ER and again overnight March 26. U5 100 switch to NPH insulin on March 27. We will continue to monitor frequent Accu-Cheks. 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 (11) Hypokalemia: Plan: potassium replacement (12) Dementia: Plan: Chronic. Supportive care. Now on low dose seroquel HS for s undowning/agitation. Plan: Ppx - Lovenox SQ Code Status _--- CONFIRMED LEVEL 1 with on phone 03/24 Continue PT/OT Disposition: To be determined Admission and Anticipated Discharge Date Admission Date: March 23, 2021 Patient has a 24 hr caregiver at home. Will discharge back home when medically stable Subjective patient seen and examined, sitter by the bedside, she is more awake today, with mittens as soft restraint. wants them taken off Review of Systems Review of Systems: unreliable due to confusion Physical Exam Physical Exam: The patient is awake, with clean bandage on head HEENT--PERRL, EOMI, mucous membranes and oropharynx mildly dry Neck--supple. No JVD. No bruits. Thyroid normal, trachea midline, no adenopathy. Heart--normal S1 and S2. No murmurs, rubs or gallops. Lungs--clear bilaterally, no respiratory distress, no accessory muscle use. Abdomen--normal bowel sounds and soft. Mild epigastric and left sided abdominal pain Extremities--no cyanosis or clubbing. No edema. Dermatologic--normal skin turgor, normal color, no abnormal lymph nodes, no rash. Neurologic--cranial nerves II through XII grossly intact. Rheumatologic--normal range of motion. Psychiatric--unable to assess Results & Data Results & Data ([facility]) Vital Signs (Past 12 Hours) Vital Signs Temp Pulse Pulse Resp BP BP Pulse Ox 03/29/21 19:00 99.3 F 97 H 22 167/79 H 94 03/29/21 15:27 98.6 F 98 H 21 149/71 H 91 Intake and Output 03/29/21 03/30/21 03/30/21 22:59 06:59 14:59 Intake Total 653.775 / 2802.525 908.75 / 2802.525 Output Total 250 / 1050 Balance 653.775 / 1752.525 658.75 / 1752.525 Intake: IV 653.775 / 2562.525 908.75 / 2562.525 D5w and 1/2Nss + 20Meq KCl 20 603.75 / 1603.75 meq In 1,000 ml @ 75 mls/hr IV .[id number] [facility] Rx#:[id number] Desmopressin Acetate 0.1 mcg In 50.025 / 50.025 Sodium Chloride 0.9% 50 ml @ 100 mls/hr IV DAILY [facility] Rx#: [id number] Dextrose 5% 1,000 ml @ 75 mls/ 908.75 / 908.75 hr IV .[id number] [facility] Rx#:[id number] Oral 0 / 240 Output: Urine Amount (Catheter) 250 / 250 External 250 / 250 Laboratory Results Laboratory Results - last 24 hr 03/29/21 03/29/21 03/29/21 11:26 16:34 20:19 WBC RBC Hgb Hct MCV MCH MCHC RDW Std Deviation RDW Coeff of Fritz Plt Count MPV Immature Gran % (Auto) Neut % (Auto) Lymph % (Auto) Gooding % (Auto) Eos % (Auto) Baso % (Auto) Neut # (Auto) Lymph # (Auto) Gooding # (Auto) Eos # (Auto) Baso # (Auto) Immature Gran # (Auto) Absolute Nucleated RBC Nucleated RBC % (auto) Sodium Potassium Chloride Carbon Dioxide Anion Gap BUN Creatinine Est Cr Clr Drug Dosing Est GFR ( Amer) Est GFR (Non-Af Amer) BUN/Creatinine Ratio Glucose POC Glucose 249 H 180 H 87 Calcium 03/30/21 03/30/21 03/30/21 05:24 05:24 07:40 WBC 12.45 H RBC 3.56 L Hgb 11.9 L Hct 36.6 L MCV 102.8 H MCH 33.4 MCHC 32.5 RDW Std Deviation 60.8 H RDW Coeff of Fritz 16.1 H Plt Count 185 MPV 11.7 H Immature Gran % (Auto) 1.6 Neut % (Auto) 75.1 Lymph % (Auto) 14.8 Gooding % (Auto) 8.1 Eos % (Auto) 0.2 Baso % (Auto) 0.2 Neut # (Auto) 9.36 H Lymph # (Auto) 1.84 Gooding # (Auto) 1.01 H Eos # (Auto) 0.02 Baso # (Auto) 0.02 Immature Gran # (Auto) 0.20 H Absolute Nucleated RBC 0.07 H Nucleated RBC % (auto) 0.6 Sodium 146 H D Potassium 2.9 L D Chloride 114 H Carbon Dioxide 27 Anion Gap 5.0 BUN 25 H Creatinine 1.15 Est Cr Clr Drug Dosing 45.0 Est GFR ( Amer) 50.6 Est GFR (Non-Af Amer) 43.7 BUN/Creatinine Ratio 21.7 H Glucose 88 POC Glucose 97 Calcium 8.2 L PG Care Time/CCT Total # of Minutes Spent Total Time Spent with Patient: Total time spent is greater than 50% in coordination of care (as documented) at patient's floor/unit and/or counseling patient: Coding Level of Care Code 14456 Subseq Hosp Care Lvl 2 Diagnoses Hypernatremia E87.0 Generalized weakness R53.1 Scalp lesion L98.9 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) E23.0 History of basal cell carcinoma Z85.828 Thoracic compression fracture S22.000A Hypertension I10 Hypertension type: essential hypertension Type 2 diabetes mellitus, with long-term current use of insulin E11.22; N18.3; Z79.4 Diabetes mellitus complication status: with kidney complications Diabetes mellitus complication detail: with chronic kidney disease Chronic kidney disease stage: stage 3 (moderate) GERD (gastroesophageal reflux disease) K21.9 Central hypothyroidism E03.8 Hypokalemia E87.6 Dementia F03.90 (1) Hypertension Hypertension type: essential hypertension Qualified Code(s): I10 - Essential (primary) hypertension (2) Type 2 diabetes mellitus, with long-term current use of insulin Diabetes mellitus complication status: with kidney complications Diabetes mellitus complication detail: with chronic kidney disease Chronic kidney disease stage: stage 3 (moderate) Qualified Code(s): E11.22 - Type 2 diabetes mellitus with diabetic chronic kidney disease; N18.3 - Chronic kidney disease, stage 3 (moderate); 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
[2021-03-30] MEDS: amLODIPine BESYLATE 5 MG TAB PO SCH (12:20)
[2021-03-30] MEDS: traMADol HCL 50 MG TABLET PO PRN (13:39)
[2021-03-30] MEDS: QUEtiapine FUMARATE 25 MG TABLET PO SCH (21:02)
[2021-03-30] MEDS: LATANOPROST 0.005% OP SOLN 2.5 ML BTL OP SCH (21:07)
[2021-03-30] MEDS: ENOXAPARIN INJ 40 MG/0.4 ML SYR SQ SCH (21:07)
[2021-03-31] MEDS ORDERED: HALOPERIDOL LACTATE 5 MG/ML 1 ML VIAL IM STA (00:09)
[2021-03-31] MEDS ORDERED: LORazepam 1 MG/2 ML VIAL IV STA (00:15)
[2021-03-31] MEDS: HYDROCORTISONE SOD 50 MG in SYRINGE 0 ML IV SCH ×3 (01:28→16:28)
[2021-03-31] MEDS: LORazepam 1 MG/2 ML VIAL IV PRN ×2 (06:12→16:23)
[2021-03-31] MEDS: LEVOTHYROXINE SODIUM 125 MCG TABLET PO SCH (06:17)
[2021-03-31] MEDS: DEXTROSE 5% 1,000 ML IV SCH ×2 (07:43→20:56)
[2021-03-31] MEDS: BETAMETHASONE DIP AUG (DIPROLENE) 0.05% CR 15 GM TUBE EXT SCH ×2 (07:57→20:45)
[2021-03-31] MEDS ORDERED: INSULIN HUMAN NPH SC SCH ×3 (08:00→17:00)
[2021-03-31] MEDS: INSULIN ASPART 100 UNITS/ML 3 ML PEN SC SCH ×4 (09:00→20:46)
[2021-03-31 09:36] LABS: BUN Creatinine Ratio 19.4 (10-20); Calcium 8.1 mg/dl (8.5-10.1); Creatinine Clr Calc Pharmacy 45.8 ml/min; Est GFR (African American) 51.7 ml/min; Est GFR (Non-African American) 44.6 ml/min; Potassium 3.7 mmol/L (3.5-5.1)
[2021-03-31] MEDS: FAMOTIDINE 20 MG TAB PO SCH (10:26)
[2021-03-31] MEDS: CALCITRIOL 0.25 MCG CAPSULE PO SCH (10:27)
[2021-03-31] MEDS: CEFDINIR 300 MG CAP PO SCH (10:27)
[2021-03-31] MEDS: DESMOPRESSIN ACETATE 0.1 MG TAB PO SCH (10:30)
[2021-03-31] MEDS: MIRABEGRON ER 25 MG TAB PO SCH (10:30)
[2021-03-31] MEDS: amLODIPine BESYLATE 5 MG TAB PO SCH (10:30)
[2021-03-31] MEDS: DOCUSATE SODIUM 100 MG CAP PO SCH (10:38)
[2021-03-31] MEDS: POTASSIUM CHLORIDE CRTAB 20 MEQ TABCR PO SCH ×2 (10:38→16:28)
[2021-03-31] MEDS: LIDOCAINE 5% 1 PATCH TD SCH (10:48)
--- NOTE | 2021-03-31 12:41 | Hospitalist Progress Note ---
Date of Service March 31, 2021 Assessment & Plan (1) Hypernatremia: Plan: Improving today, likely multifactorial, due to poor po intake, dehydration, also has a history of diabetes insipidus, sodium containing medications like synthroid and colace Serum Na 148 today, will continue d water and DPPV recheck BMP tomorrow (2) Generalized weakness: Plan: Multifactorial. 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 In August of 2013, she underwent surgery for a meningioma. Yoav developed seizures post operatively. 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 This was complicated by intracranial hemorrhage post- operatively. She has an unhealed wound on her scalp following repeat craniotomy for which she is maintained on chronic suppressive antibiotics. Post-operative recovery was complicated by a fall at [facility] which resulted in cervical spine fractures. At this time, Yoav is chronically wheelchair dependent. She requires 24 hour assistance from a caregiver which includes assistance with most every activity to daily living." Ddx to include adrenal insufficiency (no hypotension), infection (chronic elevations WBC), dehydration (reported less oral intake per outpatient notes, suspect advancement of dementia as well) Reportedly weak, more confused, ambulatory dysfunction and abdominal pain for the last few days per but hadn't been sleeping x several days and this has happened in the past--> got some sleep but then ing at night with picking at her fungating lesion/bleeding and restraints ordered (since d/c'd) She is to be on chronic suppressive therapy w/ cefdinir 300mg daily for scalp not ordered on admit, resumed TSH undetectable * -- unreliable in patient with panhypopituitarism. Free T4 wnl 1.42 and continued usual Synthroid. T3 in AM. Follows with Dr Fung CXR negative on admission CTA/P Small nondisplaced fracture within the anterior aspect of the T9 vertebral body. No bowel wall thickening or obstruction. Normal appendix. 3. Colonic diverticulosis. No evidence for acute diverticulitis. 4. Prior ch olecystectomy with a small amount of pneumobilia, unchanged. 5. Left-sided nephrolithiasis. No ureteral stones. No hydronephrosis CT Head . Study markedly compromised by motion artifact. No acute intracranial findings identified. 4.2 x 2.3 cm mass-like abnormality overlying the right frontal craniotomy. This is suboptimally assessed on this exam given motion artifact. This is indeterminate and recurrent meningioma with extracranial extension cannot be excluded. Attempt brain MRI scan today, March 28 CT Thoracic spine with acute nondisplaced fx T9, additional findings at T12-L1 as below * Check PTH, Vit D -- pending * On calcitriol (may need held but will also check Vit D in AM) * Ortho consult appreciated PT/OT evals ordered (3) Scalp lesion: Plan: Known lesion secondary to meningioma extraction, poor wound healing and exposed mesh. 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 Additional acute appearing transverse fracture through anterior osteophytes at the T12-L1 level which may extend through the disc space. These fractures do not appear to extend into the posterior elements. However, stability of these fractures is difficult to assess by imaging given extensive anterior osteophytosis of the thoracic spine. Ortho consult -- would not pursue surgery in patient with multiple co- morbidities * --> Suggest f/u CT scan in 1 week to assess fracture patterns -- if no changes would continue activity as tolerated * ?brace by orthotics if able to tolerate when out of bed but doubt patient able to tolerate/would be compliant with such Tylenol, lidocaine patch, tramadol prn pain (7) Hypertension: Plan: Continue to monitor BP, 145/81 today continue home meds (8) Type 2 diabetes mellitus, with long-term current use of insulin: Plan: Glycemic management consultation. Patient on U500 at home. Hypoglycemic in the ER and again overnight March 26. U5 100 switch to NPH insulin on March 27. We will continue to monitor frequent Accu-Cheks. 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 (11) Hypokalemia: Plan: Resolved (12) Dementia: Plan: Chronic. Supportive care. Now on low dose seroquel HS for sundownin g/agitation. Plan: Ppx - Lovenox SQ Code Status _--- CONFIRMED LEVEL 1 with on phone 03/24 Continue PT/OT Disposition: To be determined Admission and Anticipated Discharge Date Admission Date: March 23, 2021 discharge home in the next 24 hrs Subjective patient seen and examined, sitter by the bedside, still wants the mittens off Review of Systems Review of Systems: unreliable due to confusion Physical Exam Physical Exam: The patient is awake, with clean bandage on head HEENT--PERRL, EOMI, mucous membranes and oropharynx mildly dry Neck--supple. No JVD. No bruits. Thyroid normal, trachea midline, no adenopathy. Heart--normal S1 and S2. No murmurs, rubs or gallops. Lungs--clear bilaterally, no respiratory distress, no accessory muscle use. Abdomen--normal bowel sounds and soft. Mild epigastric and left sided abdominal pain Extremities--no cyanosis or clubbing. No edema. Dermatologic--normal skin turgor, normal color, no abnormal lymph nodes, no rash. Neurologic--cranial nerves II through XII grossly intact. Rheumatologic--normal range of motion. Psychiatric--unable to assess Results & Data Results & Data ([facility]) Vital Signs (Past 12 Hours) Vital Signs Temp Pulse Resp BP Pulse Ox 03/31/21 10:30 97.5 F L 65 18 145/81 H 97 Laboratory Results Laboratory Results - last 24 hr 03/30/21 03/30/21 03/31/21 16:54 20:07 07:45 Sodium Potassium Chloride Carbon Dioxide Anion Gap BUN Creatinine Est Cr Clr Drug Dosing Est GFR ( Amer) Est GFR (Non-Af Amer) BUN/Creatinine Ratio Glucose POC Glucose 166 H 105 H 87 Calcium 03/31/21 03/31/21 08:55 11:32 Sodium 148 H Potassium 3.7 D Chloride 116 H Carbon Dioxide 26 Anion Gap 6.0 BUN 22 H Creatinine 1.13 Est Cr Clr Drug Dosing 45.8 Est GFR ( Amer) 51.7 Est GFR (Non-Af Amer) 44.6 BUN/Creatinine Ratio 19.4 Glucose 93 POC Glucose 134 H Calcium 8.1 L PG Care Time/CCT Total # of Minutes Spent Total Time Spent with Patient: Total time spent is greater than 50% in coordination of care (as documented) at patient's floor/unit and/or counseling patient: Coding Level of Care Code 69634 Subseq Hosp Care Lvl 2 Diagnoses Hypernatremia E87.0 Generalized weakness R53.1 Scalp lesion L98.9 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) E23.0 History of basal cell carcinoma Z85.828 Thoracic compression fracture S22.000A Hypertension I10 Hypertension type: essential hypertension Type 2 diabetes mellitus, with long-term current use of insulin E11.22; N18.3; Z79.4 Diabetes mellitus complication status: with kidney complications Diabetes mellitus complication detail: with chronic kidney disease Chronic kidney disease stage: stage 3 (moderate) GERD (gastroesophageal reflux disease) K21.9 Central hypothyroidism E03.8 Hypokalemia E87.6 Dementia F03.90 (1) Hypertension Hypertension type: essential hypertension Qualified Code(s): I10 - Essential (primary) hypertension (2) Type 2 diabetes mellitus, with long-term current use of insulin Diabetes mellitus complication status: with kidney complications Diabetes mellitus complication detail: with chronic kidney disease Chronic kidney disease stage: stage 3 (moderate) Qualified Code(s): E11.22 - Type 2 diabetes mellitus with diabetic chronic kidney disease; N18.3 - Chronic kidney disease, stage 3 (moderate); Z79.4 - assisted (current) use of insulin
--- NOTE | 2021-03-31 14:00 | Pharmacy Report ---
Pharmacy Glycemic Short Note 2 - Date of Service March 31, 2021 - Glycemic Short BSG Results (Last 24 hours): 03/30/21 03/30/21 03/31/21 16:54 20:07 07:45 Glucose POC Glucose 166 H 105 H 87 03/31/21 03/31/21 08:55 11:32 Glucose 93 POC Glucose 134 H OUTPATIENT ANTIDIABETIC REGIMEN: * U-500 80 units with breakfast, 100 units with lunch per med list (Per outpatient Endo notes 11/14/20 taking 80 units with breakfast and 80 units with dinner) * HbA1c = 6.9% (03/25/21) ASSESSMENT: 03/31: * Patient received total of 90 units of insulin yesterday, of which 80 units were NPH * BSGs well controlled yesterday, however PO intake poorer * Fasting BSG 87 mg/dL - may scale back on evening NPH (decrease 20%) * RN called this AM and patient drowsy and likely will not eat this morning - continued with reduced AM NPH dose of 30 units 03/30 * Pt has received 116 units of insulin over the past 24hrs * 100 units of basal with NPH * 16 units of bolus with NovoLog * BSGs [phone] mg/dl * Pt remains on Hydrocortisone 50mg IV Q 8hrs * BSGs trending down with current orders. Regimen is very basal heavy since we were previously dosing U-500 which covers both basal and prandial needs. * Pt refusing to eat this morning. Discussed with RN; she was given Seroquel and IM haldol last night so shes a bit sleepy this morning. Pt stated she doesnt want to eat and spit a few bites out at RN. * Will empirically lower NPH dosing to re-distribute regimen more 50:50% basal:prandial since PO intake uncertain 03/29: * Yoav received a total of 55 units of insulin yesterday (40 units of NPH + 15 units Novolog) * BSGs were uncontrolled: [phone] mg/dL * Dextrose fluids were started around 10pm last evening * Fasting BSG was elevated at 233 mg/dL this AM * Assuming this was secondary to dextrose fluids * Will increase NPH today to account for dextrose fluids * Tightened Novolog as well 03/28: * Patient received a total of 57 units of insulin yesterday (45 units NPH + 12 units bolus) * BSGs were: 53-716-469-97 mg/dL * Fasting BSG was low at 57 mg/dL this AM * Patient was symptomatic (clammy/confused). She received an amp of D50 and BSG improved to 123 mg/dL. * Likely cause of hypoglycemia was AM NPH being administered 4 hours late yesterday followed by more NPH being given at supper time. Late administration led to hyperglycemia at dinner as well which increased amount of bolus given. * Spoke with RN around 1030 this AM as NPH had not been given again. Instructed RN to administer NPH ALONDRA to prevent stacking this evening. * Patient is to receive a central line at some point today to start D51/2NS+20KCl at 75 mL/hr. * Loosened Novolog parameters today to help prevent hypoglycemia. 03/27: * Yoav received a total of 156 units of insulin yesterday (130 units of U-500 + 10 units IV + 16 units bolus) * BSGs were uncontrolled: [phone] mg/dL * Fasting BSG was 83 mg/dL this AM - at goal * Patient had severe episode of hypoglycemia yesterday evening/early this AM. Baseline confusion in this patient so symptoms were difficult to assess. Required 3 full amps of D50 for each episode of hypoglycemia. * Given low doses of U-500 as an outpatient, age and HbA1c, plan to transition patient to NPH this AM. * Spoke with RN and patient did eat some breakfast this AM, mostly applesauce. * Will start with a conservative NPH dose of ~ 0.2 units/kg this morning. Evening NPH dose will be assessed later in the day. * Will adjust Novolog to have carb coverage at this time. PLAN FOR INPATIENT GLYCEMIC CONTROL: * Basal insulin * NPH 30 units SQ x 1 dose this AM for decrease PO intake then, * NPH 30-40 SC BID * Bolus insulin * NovoLog per scale ACHS or Q6hrs while NPO * Goal Range: Low 120 mg/dL - High 150 mg/dL * Correction Factor: 20 mg/dL/unit * Nutritional / Prandial insulin per carb ratio of 1 unit per 7 grams CHO consumed PLAN FOR DISCHARGE: * HbA1c was 6.9% during this admission. This is at goal of less than 8% given her age and comorbidities. * Patient follows with [facility] Endocrinology as an outpatient. Defer any insulin adjustments to them but would consider transition to NPH given low U-500 doses.
[2021-03-31] MEDS: INSULIN HUMAN NPH SC SCH (17:45)
[2021-03-31] MEDS: ENOXAPARIN INJ 40 MG/0.4 ML SYR SQ SCH (20:46)
[2021-03-31] MEDS: LATANOPROST 0.005% OP SOLN 2.5 ML BTL OP SCH (20:48)
[2021-03-31] MEDS: QUEtiapine FUMARATE 25 MG TABLET PO SCH (20:49)
[2021-04-01] MEDS: HYDROCORTISONE SOD 50 MG in SYRINGE 0 ML IV SCH ×2 (00:58→08:07)
[2021-04-01] MEDS ORDERED: LORazepam 1 MG/2 ML VIAL IV PRN (01:28)
[2021-04-01] MEDS: LEVOTHYROXINE SODIUM 125 MCG TABLET PO SCH (05:55)
[2021-04-01] MEDS: CEFDINIR 300 MG CAP PO SCH (08:07)
[2021-04-01] MEDS: MIRABEGRON ER 25 MG TAB PO SCH (08:08)
[2021-04-01] MEDS: amLODIPine BESYLATE 5 MG TAB PO SCH (08:08)
[2021-04-01] MEDS: CALCITRIOL 0.25 MCG CAPSULE PO SCH (08:09)
[2021-04-01] MEDS: FAMOTIDINE 20 MG TAB PO SCH (08:10)
[2021-04-01] MEDS: DESMOPRESSIN ACETATE 0.1 MG TAB PO SCH (08:10)
[2021-04-01] MEDS: LIDOCAINE 5% 1 PATCH TD SCH (08:11)
[2021-04-01] MEDS: BETAMETHASONE DIP AUG (DIPROLENE) 0.05% CR 15 GM TUBE EXT SCH (08:12)
[2021-04-01] MEDS: INSULIN ASPART 100 UNITS/ML 3 ML PEN SC SCH ×2 (08:14→12:48)
[2021-04-01] MEDS: INSULIN HUMAN NPH SC SCH (08:16)
[2021-04-01] MEDS: POTASSIUM CHLORIDE CRTAB 20 MEQ TABCR PO SCH (08:20)
[2021-04-01] MEDS: DOCUSATE SODIUM 100 MG CAP PO SCH (08:20)
[2021-04-01] MEDS: DEXTROSE 5% 1,000 ML IV SCH (10:24)
--- NOTE | 2021-04-01 14:28 | Discharge Summary ---
Date of Service April 01, 2021 Admission HPI Per Admitting Provider Patient is altered during my exam and is unable to provide details of events prior to arrival. No family at bedside at present. History obtained through discussion with ER staff and chart review. Unable to reach family by phone. Yoav Valencia is an 85yo female with history of DM, Panhypopituitarism (diabetes insipidus/anterior deficiency) presenting with abdominal pain. Patient has reportedly not been sleeping for the past 3 days. She has been complaining of abdominal discomfort. Also reportedly more confused than usual. No report of fever, chills, cough, congestion, nausea, vomiting, diarrhea reports patient is ambulatory with assistance and use of walker at baseline. However, over the last several days she has been unable to ambulate. Uncertain if she has been taking medications or if she has doubled her hydrocortisone for sick-day dosing BSG in ER 69. She was given 1 amp of D50. Patient was given 0.25mg of Ativan to obtain CT of the abdomen Principal Diagnosis acute encephalopathy secondry to hypernatremia Discharge Exam The patient is awake, with clean bandage on head HEENT--PERRL, EOMI, mucous membranes and oropharynx mildly dry Neck--supple. No JVD. No bruits. Thyroid normal, trachea midline, no adenopathy. Heart--normal S1 and S2. No murmurs, rubs or gallops. Lungs--clear bilaterally, no respiratory distress, no accessory muscle use. Abdomen--normal bowel sounds and soft. Mild epigastric and left sided abdominal pain Extremities--no cyanosis or clubbing. No edema. Dermatologic--normal skin turgor, normal color, no abnormal lymph nodes, no rash. Neurologic--cranial nerves II through XII grossly intact. Rheumatologic--normal range of motion. Psychiatric--unable to assess Discharge Data Allergies Allergy/AdvReac Type Severity Reaction Status Date / Time amoxicillin Allergy Intermediate Swelling Verified 03/23/21 17:21 of Lips Cipro Allergy Intermediate RASH, Verified 08/03/17 14:29 NAUSEA ciprofloxacin Allergy Intermediate RASH, Verified 03/23/21 17:21 NAUSEA Sulfa (Sulfonamide Allergy Intermediate RASH Verified 03/23/21 17:21 Antibiotics) biotin Allergy Unknown UNKN Verified 03/23/21 17:21 cefepime AdvReac Severe HALLUCINATI Verified 03/23/21 17:21 ONS diphenhydramine AdvReac Severe HYPER Verified 03/23/21 17:21 INSOMNIA mirtazapine AdvReac Intermediate altered Verified 03/23/21 17:21 mental status changes nitrofurantoin AdvReac Intermediate CHEST Verified 03/23/21 17:21 PAIN, CONFUSION oxycodone AdvReac Mild N/V Verified 03/23/21 17:21 Consultations 03/23/21 21:58 ED Decision to Admit Stat 03/24/21 19:39 Consult Palliative Care Routine 03/25/21 15:26 Consult Orthopedic Surgery Routine 03/26/21 17:07 Consult Dermatology Routine 03/27/21 13:35 Consult Infectious Diseases Routine Ordered Studies 03/23/21 16:30 CT head/brain wo con Stat 03/23/21 19:26 CT abd pelvis IV con only Urgent 03/24/21 20:15 CT thoracic spine wo con Routine Hospital Course (1) Hypernatremia: Improving today, likely multifactorial, due to poor po intake, dehydration, also has a history of diabetes insipidus, sodium containing medications like synthroid and colace Serum Na 148 today, will continue d water and DPPV recheck BMP tomorrow (2) Generalized weakness: Multifactorial. 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 In August of 2013, she underwent surgery for a meningioma. Yoav developed seizures post operatively. 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 This was complicated by intracranial hemorrhage post-operatively. She has an unhealed wound on her scalp following repeat craniotomy for which she is maintained on chronic suppressive antibiotics. Post-operative recovery was complicated by a fall at [facility] which resulted in cervical spine fractures. At this time, Yoav is chronically wheelchair dependent. She requires 24 hour assistance from a caregiver which includes assistance with most every activity to daily living." Ddx to include adrenal insufficiency (no hypotension), infection (chronic elevations WBC), dehydration (reported less oral intake per outpatient notes, suspect advancement of dementia as well) Reportedly weak, more confused, ambulatory dysfunction and abdominal pain for the last few days per but hadn't been sleeping x several days and this has happened in the past--> got some sleep but then sundowning at night with picking at her fungating lesion/bleeding and restraints ordered (since /) She is to be on chronic suppressive therapy w/ cefdinir 300mg daily for scalp not ordered on admit, resumed TSH undetectable * -- unreliable in patient with panhypopituitarism. Free T4 wnl 1.42 and continued usual Synthroid. T3 in AM. Follows with Dr Fung CXR negative on admission CTA/P Small nondisplaced fracture within the anterior aspect of the T9 vertebral body. No bowel wall thickening or obstruction. Normal appendix. 3. Colonic diverticulosis. No evidence for acute diverticulitis. 4. Prior cholecystectomy with a small amount of pneumobilia, unchanged. 5. Left-sided nephrolithiasis. No ureteral stones. No hydronephrosis CT Head . Study markedly compromised by motion artifact. No acute intracranial findings identified. 4.2 x 2.3 cm mass-like abnormality overlying the right frontal craniotomy. This is suboptimally assessed on this exam given motion artifact. This is indeterminate and recurrent meningioma with extracranial extension cannot be excluded. Attempt brain MRI scan today, March 28 CT Thoracic spine with acute nondisplaced fx T9, additional findings at T12-L1 as below * Check PTH, Vit D -- pending * On calcitriol (may need held but will also check Vit D in AM) * Ortho consult appreciated PT/OT evals ordered (3) Scalp lesion: Known lesion secondary to meningioma extraction, poor wound healing and exposed mesh. 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 Additional acute appearing transverse fracture through anterior osteophytes at the T12-L1 level which may extend through the disc space. These fractures do not appear to extend into the posterior elements. However, stability of these fractures is difficult to assess by imaging given extensive anterior osteophytosis of the thoracic spine. Ortho consult -- would not pursue surgery in patient with multiple co- morbidities * --> Suggest f/u CT scan in 1 week to assess fracture patterns -- if no changes would continue activity as tolerated * ?brace by orthotics if able to tolerate when out of bed but doubt patient able to tolerate/would be compliant with such Tylenol, lidocaine patch, tramadol prn pain (7) Hypertension: Continue to monitor BP, 145/81 today continue home meds (8) Type 2 diabetes mellitus, with long-term current use of insulin: Glycemic management consultation. Patient on U500 at home. Hypoglycemic in the ER and again overnight March 26. U5 100 switch to NPH insulin on March 27. We will continue to monitor frequent Accu-Cheks. 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 (11) Hypokalemia: Resolved (12) Dementia: Chronic. Supportive care. Now on low dose seroquel HS for sundowning/agitation. Ppx - Lovenox SQ Code Status _--- CONFIRMED LEVEL 1 with on phone 03/24 Continue PT/OT Disposition: To be determined Total Time Total Time Spent Total Time Spent (In Minutes): 35 Discharge Plan Discharge Items Patient Disposition: Home - Home Health Services Reason For Visit: CONFUSION, WEAKNESS, ABDOMINAL PAIN Discharge Diagnosis: metabolic encephalopathy from hypernatremia Condition on Discharge: Fair Activity: Resume your previous activity Non-emergency contact: Primary Care Provider Call non-emergency contact if: you have any medication questions Follow-up/Referrals: Jocelyn Bowser MD [Primary Care Provider] - 04/11/21 11:30 am Diet: Regular Addtl Attending Provider Instructions: please make appointment to follow up with a urologist to remove pizarro catheter Pending Studies at Discharge: No Stand-Alone Forms: My Ribbit, Smoking Cessation Medications and DC Order Prescriptions: Continued latanoprost 0.005 % drops 1 drops OP QPM RF: 0 acetaminophen 325 mg capsule 325 mg PO Q6H PRN (Reason: Pain) RF: 0 Align 4 mg capsule 4 mg PO DAILY RF: 0 docusate sodium 100 mg capsule 100 mg PO DAILY RF: 0 betamethasone dipropionate 0.05 % lotion 1 appln TOP BID Qty: 60 RF: 1 (DME) Fitted Briefs X-Large Misc See Rx Instructions .ROUTE .MEDSUPPLY Qty: 4 RF: 11 (DME) disposable gloves [Nitrile Exam Gloves] Misc See Rx Instructions .ROUTE .MEDSUPPLY Qty: 1,000 RF: 11 (DME) Underpads Regular Pad See Rx Instructions .ROUTE .MEDSUPPLY Qty: 40 RF: 11 levothyroxine 125 mcg tablet 125 mcg PO DAILY Qty: 90 RF: 3 Baqsimi 3 mg/actuation spray,non-aerosol 3 mg intranasal ONCE PRN (Reason: severe low blood sugar) Qty: 2 RF: 3 chlorthalidone 25 mg tablet 12.5 mg PO DAILY 90 Days Qty: 45 RF: 3 (DME) lancets [OneTouch Delica Lancets] 30 gauge misc See Dose Instructions .ROUTE .MEDSUPPLY Qty: 200 RF: 5 Humulin R U-500 (Conc) Kwikpen 500 unit/mL (3 mL) insulin pen See Rx Instructions SQ .COMPLEX Qty: 3 RF: 4 alendronate 70 mg tablet See Rx Instructions .ROUTE .COMPLEX Qty: 13 RF: 3 hydrocortisone 10 mg tablet 10 mg PO .COMPLEX MDD 4 tabs daily 90 Days Qty: 360 RF: 3 omeprazole 20 mg capsule,delayed release(DR/EC) See Rx Instructions .ROUTE .COMPLEX Qty: 90 RF: 3 (DME) OneTouch Verio test strips Strip See Dose Instructions .ROUTE .MEDSUPPLY Qty: 200 RF: 3 calcitriol 0.25 mcg capsule 0.25 mcg PO DAILY Qty: 90 RF: 3 cefdinir 300 mg capsule 300 mg PO DAILY Qty: 90 RF: 1 desmopressin 0.1 mg tablet 0.1 mg PO DAILY Qty: 90 RF: 3 (DME) pen needle, diabetic [BD Ultra-Fine Short Pen Needle] 31 gauge x 5/16" needle See Rx Instructions .ROUTE .MEDSUPPLY Qty: 200 RF: 3 potassium chloride 20 mEq tablet,ER particles/crystals 20 meq PO BID Qty: 180 RF: 1 Myrbetriq 50 mg tablet extended release 24 hr 50 mg PO DAILY Qty: 90 RF: 3 furosemide 20 mg tablet 20 mg PO Q OTHER DAY PRN (Reason: edema) Qty: 15 RF: 1 Biofreeze (menthol) 5 % gel 5 % TOP BID PRN (Reason: pain) Qty: 30 RF: 0 polyethylene glycol 3350 [Miralax] 17 gram/dose powder 17 gm PO DAILY PRN (Reason: constipation) Qty: 510 RF: 0 Systane Complete 0.6 % drops 1 drops OP QID PRN (Reason: dry eye(s)) Qty: 20 RF: 0 multivitamin Tablet 1 tab PO DAILY RF: 0 Krames/Other Patient Handouts: Managing Type 2 Diabetes Admission Data Admit Date/Time: 03/23/21 23:27 Attending Provider: Nia Leiva Admit Provider: Deepti Persaud Primary Care Provider: Jocelyn Bowser Providers: Deepti Persaud ; Breanna Hess ; Marcus Kelsey ; Leonard English ; Ernst Wray ; Kenna Duque ; Harlan Persaud I. 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
== END 2021-04-01 15:13 | disposition home health service (06) | DRG 643 ==
LOC: ED 16:18 → SUATTDRO 23:27 → EDINP 23:27 → 2N 03-24 19:42
DX: F05 Delirium due to known physiological condition; Y83.8 Other surgical procedures as the cause of abnormal reaction of the patient, or of later complication, without mention of misadventure at the time of the procedure; E87.6 Hypokalemia; Z86.73 Personal history of transient ischemic attack (TIA), and cerebral infarction without residual deficits; Z79.2 Long term (current) use of antibiotics; R78.89 Finding of other specified substances, not normally found in blood; D72.829 Elevated white blood cell count, unspecified; Z72.820 Sleep deprivation; E11.649 Type 2 diabetes mellitus with hypoglycemia without coma; H40.9 Unspecified glaucoma; Z68.34 Body mass index [BMI] 34.0-34.9, adult; R53.1 Weakness; M47.814 Spondylosis without myelopathy or radiculopathy, thoracic region; Z86.011 Personal history of benign neoplasm of the brain; Z82.49 Family history of ischemic heart disease and other diseases of the circulatory system; S01.00XA Unspecified open wound of scalp, initial encounter; I10 Essential (primary) hypertension; M48.54XA Collapsed vertebra, not elsewhere classified, thoracic region, initial encounter for fracture; Z88.5 Allergy status to narcotic agent; F03.91 Unspecified dementia, unspecified severity, with behavioral disturbance; E23.2 Diabetes insipidus; G93.41 Metabolic encephalopathy; T81.9XXA Unspecified complication of procedure, initial encounter; Z79.890 Hormone replacement therapy; Z88.1 Allergy status to other antibiotic agents; T38.0X5A Adverse effect of glucocorticoids and synthetic analogues, initial encounter; E03.8 Other specified hypothyroidism; Z79.52 Long term (current) use of systemic steroids; R26.2 Difficulty in walking, not elsewhere classified; Z79.4 Long term (current) use of insulin; K21.9 Gastro-esophageal reflux disease without esophagitis; E86.0 Dehydration; E23.0 Hypopituitarism; Z83.3 Family history of diabetes mellitus; Z99.3 Dependence on wheelchair; E87.0 Hyperosmolality and hypernatremia; Z88.2 Allergy status to sulfonamides; Z88.0 Allergy status to penicillin; M81.0 Age-related osteoporosis without current pathological fracture; Z79.899 Other long term (current) drug therapy; Z88.8 Allergy status to other drugs, medicaments and biological substances; E66.9 Obesity, unspecified; R32 Unspecified urinary incontinence; R10.9 Unspecified abdominal pain; Z51.81 Encounter for therapeutic drug level monitoring; E27.40 Unspecified adrenocortical insufficiency

== ENCOUNTER 2021-04-05 12:31 | Inpatient (IN) ==
[2021-04-05] MEDS ORDERED: SODIUM CHLORIDE 0.9% 1000ML 500 ML IV ONE (12:42)
--- NOTE | 2021-04-05 13:06 | XRay Report ---
XR chest 1V portable CLINICAL HISTORY: weakness TECHNIQUE: Single frontal radiograph of the chest was obtained. Comparison: Comparison is made to chest one view 03/23/2021 FINDINGS: No lines and tubes are seen. Calcified aortic knob is seen. Lungs are underinflated. There is mild pr ominence of pulmonary vasculature. Airspace opacity is seen at the left lung base. No pneumothorax is seen, pleural effusions cannot be excluded. IMPRESSION: 1. Mild pulmonary edema. 2. Left lung base airspace opacity which may represent atelectasis, pneumonia, and/or aspiration. 3. Cannot exclude left effusion. ACT 112: Negative or not required by law. Electronically signed by: Artis Lopez M.D. 04/05/2021 1:05 PM
--- NOTE | 2021-04-05 13:58 | Emergency Department Note ---
Impression & Plan AMS (altered mental status), Agitation ED Provider Note NAME: ARTEMIO ANDERSON AGE: 86 SEX: F : 1935 ARRIVES VIA: Ambulance INFORMANT: Patient, EMS ED PROVIDER(S): Bandar Hudson DO CHIEF COMPLAINT: Confusion HPI: The patient is an 86-year-old female who presented to emergency department for an evaluation of altered mental status. The patient is a history of craniotomy as well as dementia. She also has a history of meningioma. She presented to the emergency department by ambulance for an evaluation of altered mental status. There is no reported trauma or fever. The patient reported no difficulty breathing. Most of the history is obtained from the patient's previous records as well as EMS personnel. ROS: See above HPI for pertinent positives & negatives. A total of 10 systems reviewed and were otherwise negative. PAST MEDICAL HISTORY: See Below PAST SURGICAL HISTORY: See Below FAMILY HISTORY: See Below SOCIAL HISTORY: See Below HOME MEDICATIONS: See Below ALLERGIES: See Below VITALS: See Below PHYSICAL EXAMINATION: GENERAL: The patient is awake and alert. The patient is very anxious appearing. EYES: The conjunctivae are clear. The pupils are round and reactive. EARS, NOSE, MOUTH AND THROAT: The nose is without any evidence of any deformity. NECK: The neck is nontender and supple. RESPIRATORY: Normal respiratory effort is noted there is no evidence of wheezing rhonchi or rales CARDIOVASCULAR: Regular rate and rhythm noted there no murmurs rubs or gallops normal S1 normal S2. GASTROINTESTINAL: The abdomen is soft. Abdomen is nontender. And alert. She does not answer questions appropriately. MUSCULOSKELETAL/EXTREMITIES: There is no evidence of gross deformity full range of motion is noted in the hips and shoulders. SKIN: Pedal edema was noted bilaterally. Skin was warm and dry. There is a surgical site on the parietal scalp which was dehiscing and blackened in appe arance. NEUROLOGIC: Patient is awake and alert. The patient does not answer questions appropriately. I am unable to assess orientation at this time. The patient is moving all extremities well. MEDICAL DECISION MAKING: The patient is an 86-year-old female who presented to the emergency department because of agitation. It was difficult to ascertain history from the patient herself. Reading the patient's previous records it sounds though she has had similar episodes in the past and has underlying dementia. The patient's sent her to the emergency department for placement. She was discharged in our facility 4 days ago and has been having difficulty managing her at home. She was not febrile. She was nonhypoxic. She had no cough on my exam. I discussed the patient's laboratory and radiographic studies with the on-call [facility] hospitalist. It is possible the patient require placement. They have agreed to evaluate the patient in the emergency department. She does have a palliative care consult. It sounds of the patient has known chronic disease. Triage Nursing notes reviewed. Prior medical records reviewed Vital Signs: reviewed and remarkable for elevated blood pressure. Differential diagnosis: Infection, hypoglycemia, electrolyte abnormalities, overdose, toxicologic, cardiac sources, intracerebral event, neurologic, trauma, as well as other pathologies. ER treatment provided: See below Diagnostics interpreted by me: ECG: EKG was obtained in the emergency department. My interpretation is sinus rhythm at 85 bpm. First-degree AV block was noted. LVH was noted by voltage criteria. Inferior Q waves were also appreciated. There were no PVCs. There is no acute ST segment abnormalities noted. This was compared to a tracing from March 232020. No changes were noted. Cardiac Monitoring: An order was placed for continuous cardiac monitoring. The monitor shows a rate of 92 bpm with sinus rhythm. Laboratory studies: As stated above and show below. Imaging studies: See below Consultation(s): I discussed this case with Dr. Daniel who is on-call for the [facility] hospitalist group. They have agreed to evaluate the patient in the emergency department for further management and disposition. 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 Type 2 diabetes mellitus, with long-term current use of insulin Urinary incontinence Vitamin D insufficiency Surgical History H/O craniotomy H/O rectal polypectomy History of laparoscopic cholecystectomy History of salpingo-oophorectomy Hx of LASIK S/P cataract surgery S/P cholecystectomy Family History Sister Breast cancer Mother Bladder cancer Skin cancer Father Myocardial infarction Denies family history of Ovarian cancer Prostate cancer Colorectal cancer Social History Smoking Status: Unknown if ever smoked Second Hand Exposure: No; Hx Alcohol Use: No Hx Substance Use: No Preferred Language: Irish Communication Ability: Effective Visual Impairment: Blindness Hearing Ability: Hard of Hearing Filler Machine Operator Required: No Beliefs That Will Affect Care: None marital status: Current Living Situation: Spouse current occupational status: retired Feels Safe at Home: Yes caffeine: No Dental Care, Regularly: Yes Physical Activity Frequency: Does not Exercise Seatbelt Use: always Sunscreen Use: Yes Assistive Devices: Walker Allergies Allergies Allergy/AdvReac Type Severity Reaction Status Date / Time amoxicillin Allergy Intermediate Swelling Verified 03/23/21 17:21 of Lips Cipro Allergy Intermediate RASH, Verified 08/03/17 14:29 NAUSEA ciprofloxacin Allergy Intermediate RASH, Verified 03/23/21 17:21 NAUSEA Sulfa (Sulfonamide Allergy Intermediate RASH Verified 03/23/21 17:21 Antibiotics) biotin Allergy Unknown UNKN Verified 03/23/21 17:21 cefepime AdvReac Severe HALLUCINATI Verified 03/23/21 17:21 ONS diphenhydramine AdvReac Severe HYPER Verified 03/23/21 17:21 INSOMNIA mirtazapine AdvReac Intermediate altered Verified 03/23/21 17:21 mental status changes nitrofurantoin AdvReac Intermediate CHEST Verified 03/23/21 17:21 PAIN, CONFUSION oxycodone AdvReac Mild N/V Verified 03/23/21 17:21 Home Meds Home Medications Medication Instructions Recorded Confirmed Bifidobacterium infantis 4 mg 4 mg PO DAILY 08/08/18 04/05/21 capsule (Align) acetaminophen 325 mg capsule 325 mg PO Q6H PRN 08/08/18 04/05/21 docusate sodium 100 mg capsule 100 mg PO DAILY 08/08/18 04/05/21 latanoprost 0.005 % eye drops 1 drops OP QPM 08/08/18 04/05/21 multivitamin 1 tab PO DAILY 03/23/21 04/05/21 Previous Rx's Medication Instructions Recorded betamethasone dipropionate 0.05 % 1 appln TOP BID #60 ml 10/07/18 lotion menthol 5 % topical gel (Biofreeze 5 % TOP BID PRN #30 gm 01/06/19 (menthol)) polyethylene glycol 3350 17 17 gm PO DAILY PRN #510 gm 01/06/19 gram/dose oral powder (Miralax) propylene glycol 0.6 % eye drops 1 drops OP QID PRN #20 ml 01/06/19 (Systane Complete) levothyroxine 125 mcg tablet 125 mcg PO DAILY #90 tab 04/19/20 glucagon 3 mg/actuation nasal 3 mg INTRANASAL ONCE PRN #2 ea 05/16/20 spray (Baqsimi) chlorthalidone 25 mg tablet 12.5 mg PO DAILY 90 Days #45 tab 05/30/20 furosemide 20 mg tablet 20 mg PO Q OTHER DAY PRN #15 tab 06/24/20 alendronate 70 mg tablet See Rx Instructions .ROUTE 11/15/20 .COMPLEX #13 tab hydrocortisone 10 mg tablet 10 mg PO .COMPLEX 90 Days #360 tab 12/19/20 MDD 4 tabs daily omeprazole 20 mg capsule,delayed See Rx Instructions .ROUTE 12/27/20 release .COMPLEX #90 capsule calcitriol 0.25 mcg capsule 0.25 mcg PO DAILY #90 cap 01/12/21 cefdinir 300 mg capsule 300 mg PO DAILY #90 cap 01/16/21 desmopressin 0.1 mg tablet 0.1 mg PO DAILY #90 tab 01/25/21 potassium chloride 20 mEq 20 meq PO BID #180 tab 03/20/21 tablet,extended release(part/cryst) mirabegron 50 mg tablet,extended 50 mg PO DAILY #90 tab 03/21/21 release 24 hr (Myrbetriq) insulin regular hum U-500 conc See Rx Instructions SQ .COMPLEX #3 04/04/21 (Humulin R U-500 (Conc) Insulin box Kwikpen) trazodone 50 mg tablet 50 mg PO .QHS PRN #30 tab 04/05/21 Results & Data (ED) Vital Signs Vital Signs - 24 hr 04/05/21 12:42 04/05/21 13:23 Temperature 36.9 C Temperature Source Oral Pulse Rate 92 H Respiratory Rate 18 Blood Pressure 163/86 H Blood Pressure Mean 111 Blood Pressure Position Sitting Pulse Oximetry 96 96 Oxygen Delivery Method Room Air Room Air Sepsis Recent Fever Within 48 Hours No Sepsis New/Unexplained Change in Mental Status No Sepsis Action Taken by Nursing No Action Required Home Medications Current Medication List: was personally reviewed by me Laboratory Data Attestation: I reviewed the patient's lab results. Result diagrams: 04/05/21 14:03 04/05/21 14:03 Lab Results 04/05/21 04/05/21 04/05/21 Range/Units 14:03 14:03 14:03 WBC 14.29 H (4.8-10.8) K/uL RBC 3.87 L (4.2-5.4) M/uL Hgb 13.1 (12.0-16.0) g/dL Hct 38.7 (37-47) % MCV 100.0 (80-100) fL MCH 33.9 (25-34) pg MCHC 33.9 (32-36) g/dL RDW Std Deviation 58.7 H (36.4-46.3) fL RDW Coeff of Fritz 16.0 H (11.5-14.5) % Plt Count 190 (130-400) K/uL MPV 12.1 H (7.4-10.4) fL Immature Gran % (Auto) 1.4 % Neut % (Auto) 79.2 % Lymph % (Auto) 9.5 % P[place] % (Auto) 8.9 % Eos % (Auto) 0.9 % Baso % (Auto) 0.1 % Neut # (Auto) 11.31 H (1.4-6.5) K/uL Lymph # (Auto) 1.36 (1.2-3.4) K/uL Pinal # (Auto) 1.27 H (0.11-0.59) K/uL Eos # (Auto) 0.13 (0-0.5) K/uL Baso # (Auto) 0.02 (0-0.2) K/uL Immature Gran # (Auto) 0.20 H (0.00-0.02) K/uL Absolute Nucleated RBC 0.03 H (0-0) K/uL Nucleated RBC % (auto) 0.2 % PT 10.5 (9.0-12.0) Seconds INR 1.0 (0.9-1.1) Sodium 139 (136-145) mmol/L Potassium 3.9 (3.5-5.1) mmol/L Chloride 104 (98-107) mmol/L Carbon Dioxide 26 (21-32) mmol/L Anion Gap 9.0 (3-11) BUN 18 (7-18) mg/dl Creatinine 1.24 H (0.6-1.2) mg/dl Est Cr Clr Drug Dosing Not Reportable Est GFR ( Amer) 45.9 ml/min Est GFR (Non-Af Amer) 39.6 ml/min BUN/Creatinine Ratio 14.5 (10-20) Glucose 224 H (70-99) mg/dl Calcium 8.7 (8.5-10.1) mg/dl Magnesium 2.0 (1.8-2.4) mg/dl Total Bilirubin 0.8 (0.2-1) mg/dl AST 56 H (15-37) U/L ALT 111 H (12-78) Alkaline Phosphatase 198 H D (45-117) U/L Total Creatine Kinase 46 (26-192) U/L Troponin I < 0.015 (0-0.045) ng/ml Total Protein 6.4 (6.4-8.2) gm/dl Albumin 2.5 L (3.4-5.0) gm/dl Globulin 3.9 (2.5-4.0) gm/dl Albumin/Globulin Ratio 0.6 L (0.9-2) TSH < 0.005 L (0.300-4.500) uIu/ml Free T4 1.22 (0.8-1.6) ng/dl Administered Medications Discontinued Medications Haloperidol Lactate (Haloperidol Lactate 5 Mg/Ml 1 Ml Vial) 5 mg IM NOW STA Stop: 04/05/21 14:12 Last Admin: 04/05/21 14:30 Dose: 5 mg Documented by: [id number] Sodium Chloride (Nss 1000ml) 500 mls @ 999 mls/hr IV .Q31M ONE Stop: 04/05/21 13:12 Last Infusion: 04/05/21 14:20 Dose: 999 mls/hr Documented by: [id number] Admin: 04/05/21 13:49 Dose: 999 mls/hr Documented by: [id number] Imaging Data Radiologist's Impression: Chest X-Ray 04/05/21 12:42 XR chest 1V portable CLINICAL HISTORY: weakness TECHNIQUE: Single frontal radiograph of the chest was obtained. Comparison: Comparison is made to chest one view 03/23/2021 FINDINGS: No lines and tubes are seen. Calcified aortic knob is seen. Lungs are underinflated. There is mild prominence of pulmonary vasculature. Airspace opacity is seen at the left lung base. No pneumothorax is seen, pleural effusions cannot be excluded. IMPRESSION: 1. Mild pulmonary edema. 2. Left lung base airspace opacity which may represent atelectasis, pneumonia, and/or aspiration. 3. Cannot exclude left effusion. ACT 112: Negative or not required by law. Electronically signed by: Artis Lopez M.D. 04/05/2021 1:05 PM Discharge Plan Visit Data Chief Complaint: Illness Stated Complaint: COMBATIVE, HASN'T SLEPT FOR 3-4 DAYS ED Provider: Bandar Hudson Discharge Problem: AMS (altered mental status), Agitation Patient Disposition: Being Evaluated by Hospitalist Forms Stand Alone Forms: [facility] Prescriptions Prescriptions: No Action latanoprost 0.005 % drops 1 drops OP QPM RF: 0 acetaminophen 325 mg capsule 325 mg PO Q6H PRN (Reason: Pain) RF: 0 Align 4 mg capsule 4 mg PO DAILY RF: 0 docusate sodium 100 mg capsule 100 mg PO DAILY RF: 0 betamethasone dipropionate 0.05 % lotion 1 appln TOP BID Qty: 60 RF: 1 levothyroxine 125 mcg tablet 125 mcg PO DAILY Qty: 90 RF: 3 Baqsimi 3 mg/actuation spray,non-aerosol 3 mg intranasal ONCE PRN (Reason: severe low blood sugar) Qty: 2 RF: 3 chlorthalidone 25 mg tablet 12.5 mg PO DAILY 90 Days Qty: 45 RF: 3 alendronate 70 mg tablet See Rx Instructions .ROUTE .COMPLEX Qty: 13 RF: 3 hydrocortisone 10 mg tablet 10 mg PO .COMPLEX MDD 4 tabs daily 90 Days Qty: 360 RF: 3 omeprazole 20 mg capsule,delayed release(DR/EC) See Rx Instructions .ROUTE .COMPLEX Qty: 90 RF: 3 calcitriol 0.25 mcg capsule 0.25 mcg PO DAILY Qty: 90 RF: 3 cefdinir 300 mg capsule 300 mg PO DAILY Qty: 90 RF: 1 desmopressin 0.1 mg tablet 0.1 mg PO DAILY Qty: 90 RF: 3 potassium chloride 20 mEq tablet,ER particles/crystals 20 meq PO BID Qty: 180 RF: 1 Myrbetriq 50 mg tablet extended release 24 hr 50 mg PO DAILY Qty: 90 RF: 3 Humulin R U-500 (Conc) Kwikpen 500 unit/mL (3 mL) insulin pen See Rx Instructions SQ .COMPLEX Qty: 3 RF: 4 trazodone 50 mg tablet 50 mg PO .QHS PRN (Reason: insomnia) Qty: 30 RF: 2 furosemide 20 mg tablet 20 mg PO Q OTHER DAY PRN (Reason: edema) Qty: 15 RF: 1 Biofreeze (menthol) 5 % gel 5 % TOP BID PRN (Reason: pain) Qty: 30 RF: 0 polyethylene glycol 3350 [Miralax] 17 gram/dose powder 17 gm PO DAILY PRN (Reason: constipation) Qty: 510 RF: 0 Systane Complete 0.6 % drops 1 drops OP QID PRN (Reason: dry eye(s)) Qty: 20 RF: 0 multivitamin Tablet 1 tab PO DAILY RF: 0 Referrals Referrals: Jocelyn Bowser MD [Primary Care Provider] -
[2021-04-05] MEDS ORDERED: HALOPERIDOL LACTATE 5 MG/ML 1 ML VIAL IM STA (14:11)
[2021-04-05 14:16] LABS: Basophils # (auto) 0.02 K/uL (0-0.2); Basophils % (auto) 0.1 %; Eosinophils # (auto) 0.13 K/uL (0-0.5); Eosinophils % (auto) 0.9 %; Hematocrit (blood only) 38.7 % (37-47); Hemoglobin 13.1 g/dL (12.0-16.0); Immature Granulocytes % (auto) 1.4 %; Lymphocytes # (auto) 1.36 K/uL (1.2-3.4); Lymphocytes % (auto) 9.5 %; Mean Corpuscular Hemoglobin 33.9 pg (25-34); Mean Corpuscular Hgb Conc 33.9 g/dL (32-36); Mean Platelet Volume 12.1 fL (7.4-10.4); Monocytes # (auto) 1.27 K/uL (0.11-0.59); Monocytes % (auto) 8.9 %; Neutrophils # (auto) 11.31 K/uL (1.4-6.5); Neutrophils % (auto) 79.2 %; Nucleated RBC # (auto) 0.03 K/uL (0-0); Nucleated RBC % (auto) 0.2 %; Platelet Count 190 K/uL (130-400); RDW Standard Deviation 58.7 fL (36.4-46.3); Red Blood Count 3.87 M/uL (4.2-5.4); White Blood Count 14.29 K/uL (4.8-10.8)
[2021-04-05 14:29] LABS: Prothrombin Time 10.5 Seconds (9.0-12.0)
[2021-04-05 14:41] LABS: Alanine Aminotransferase 111 (12-78); Albumin Level 2.5 gm/dl (3.4-5.0); Aspartate Aminotransferase 56 U/L (15-37); BUN Creatinine Ratio 14.5 (10-20); Blood Urea Nitrogen 18 mg/dl (7-18); Calcium 8.7 mg/dl (8.5-10.1); Carbon Dioxide 26 mmol/L (21-32); Chloride 104 mmol/L (98-107); Est GFR (African American) 45.9 ml/min; Est GFR (Non-African American) 39.6 ml/min; Glucose 224 mg/dl (70-99); Potassium 3.9 mmol/L (3.5-5.1); Sodium 139 mmol/L (136-145)
[2021-04-05 14:51] LABS: Albumin Globulin Ratio 0.6 (0.9-2); Alkaline Phosphatase 198 U/L (45-117); Bilirubin,Total 0.8 mg/dl (0.2-1); Creatine Kinase 46 U/L (26-192); Globulin 3.9 gm/dl (2.5-4.0); Thyroid Stimulating Hormone < 0.005 uIu/ml (0.300-4.500); Total Protein 6.4 gm/dl (6.4-8.2); Troponin I < 0.015 ng/ml (0-0.045)
[2021-04-05 15:12] LABS: T4 Free Thyroxine 1.22 ng/dl (0.8-1.6)
[2021-04-05 16:16] LABS: Appearance Urine Clear (Clear); Bacteria Urine Automated Negative (Negative); Bilirubin Urine Negative (Negative); Blood Urine Negative (Negative); Color Urine Yellow; Epithelial Cell Urine Auto 0-5 /lpf (0-5); Glucose Urine UA Negative (Negative); Ketones Urine Negative (Negative); Leukocyte Esterase Urine 1+ (Negative); Nitrite Urine Positive (Negative); Protein Urine Negative (Negative); RBC Urine Automated 0-4 /hpf (0-4); Specific Gravity Urine 1.015 (1.000-1.030); Urobilinogen Urine Negative (Negative); WBC Urine Automated >30 /hpf (0-5)
[2021-04-05] MEDS ORDERED: POLYETHYLENE (MIRALAX) 17 GM PACK PO PRN (17:53)
[2021-04-05] MEDS ORDERED: PHARMACY GLYCEMIC MGMT CONSULT PRN (17:57)
--- NOTE | 2021-04-05 18:09 | History & Physical Report ---
Date of Service April 05, 2021 Assessment & Plan (1) AMS (altered mental status): Plan: Patient has altered mental status. Likely is delirius and has not improved since last admission. Delirium carries a poor prognosis epecially when in the hospital. is agreeable to placement and DNR will consult palliative care. (2) Dementia: Plan: This appears to be chronic. Delirium is likely worsening her condition will order seroquel at bedtime, will monitor (3) History of basal cell carcinoma: Plan: chronic (4) Depression: Plan: resume home meds (5) Diabetes type 2, controlled: Plan: Glycemic management consultation. Patient on U500 at home. 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 No evidence of bleeding or secondary infection -Montior History of Present Illness Chief Complaint: SOB Primary Care Provider: Jocelyn Bowser MD 86 yo female is a poor hsitorian. Patient was rexently discharged home, however she has remained delirius and has not been able to sleep. states this has been affecting him mentally and physically. is now agreeable to DNR/DNI. Allergies Allergy/AdvReac Type Severity Reaction Status Date / Time amoxicillin Allergy Intermediate Swelling Verified 03/23/21 17:21 of Lips Cipro Allergy Intermediate RASH, Verified 08/03/17 14:29 NAUSEA ciprofloxacin Allergy Intermediate RASH, Verified 03/23/21 17:21 NAUSEA Sulfa (Sulfonamide Allergy Intermediate RASH Verified 03/23/21 17:21 Antibiotics) biotin Allergy Unknown UNKN Verified 03/23/21 17:21 cefepime AdvReac Severe HALLUCINATI Verified 03/23/21 17:21 ONS diphenhydramine AdvReac Severe HYPER Verified 03/23/21 17:21 INSOMNIA mirtazapine AdvReac Intermediate altered Verified 03/23/21 17:21 mental status changes nitrofurantoin AdvReac Intermediate CHEST Verified 03/23/21 17:21 PAIN, CONFUSION oxycodone AdvReac Mild N/V Verified 03/23/21 17:21 Home Medications Medication Instructions Recorded Confirmed Type Bifidobacterium infantis 4 mg 4 mg PO DAILY 08/08/18 04/05/21 History capsule (Align) acetaminophen 325 mg capsule 325 mg PO Q6H PRN 08/08/18 04/05/21 History docusate sodium 100 mg capsule 100 mg PO DAILY 08/08/18 04/05/21 History latanoprost 0.005 % eye drops 1 drops OP QPM 08/08/18 04/05/21 History betamethasone dipropionate 0.05 % 1 appln TOP BID #60 ml 10/07/18 04/05/21 Rx lotion menthol 5 % topical gel (Biofreeze 5 % TOP BID PRN #30 gm 01/06/19 04/05/21 Rx (menthol)) polyethylene glycol 3350 17 17 gm PO DAILY PRN #510 gm 01/06/19 04/05/21 Rx gram/dose oral powder (Miralax) propylene glycol 0.6 % eye drops 1 drops OP QID PRN #20 ml 01/06/19 04/05/21 Rx (Systane Complete) levothyroxine 125 mcg tablet 125 mcg PO DAILY #90 tab 04/19/20 04/05/21 Rx glucagon 3 mg/actuation nasal 3 mg INTRANASAL ONCE PRN #2 ea 05/16/20 04/05/21 Rx spray (Baqsimi) chlorthalidone 25 mg tablet 12.5 mg PO DAILY 90 Days #45 tab 05/30/20 04/05/21 Rx furosemide 20 mg tablet 20 mg PO Q OTHER DAY PRN #15 tab 06/24/20 04/05/21 Rx alendronate 70 mg tablet See Rx Instructions .ROUTE 11/15/20 04/05/21 Rx .COMPLEX #13 tab hydrocortisone 10 mg tablet 10 mg PO .COMPLEX 90 Days #360 tab 12/19/20 04/05/21 Rx MDD 4 tabs daily omeprazole 20 mg capsule,delayed See Rx Instructions .ROUTE 12/27/20 04/05/21 Rx release .COMPLEX #90 capsule calcitriol 0.25 mcg capsule 0.25 mcg PO DAILY #90 cap 01/12/21 04/05/21 Rx cefdinir 300 mg capsule 300 mg PO DAILY #90 cap 01/16/21 04/05/21 Rx desmopressin 0.1 mg tablet 0.1 mg PO DAILY #90 tab 01/25/21 04/05/21 Rx potassium chloride 20 mEq 20 meq PO BID #180 tab 03/20/21 04/05/21 Rx tablet,extended release(part/cryst) mirabegron 50 mg tablet,extended 50 mg PO DAILY #90 tab 03/21/21 04/05/21 Rx release 24 hr (Myrbetriq) multivitamin 1 tab PO DAILY 03/23/21 04/05/21 History insulin regular hum U-500 conc See Rx Instructions SQ .COMPLEX #3 04/04/21 04/05/21 Rx (Humulin R U-500 (Conc) Insulin box Kwikpen) trazodone 50 mg tablet 50 mg PO .QHS PRN #30 tab 04/05/21 04/05/21 Rx 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 Type 2 diabetes mellitus, with long-term current use of insulin Urinary incontinence Vitamin D insufficiency Surgical History H/O craniotomy H/O rectal polypectomy History of laparoscopic cholecystectomy History of salpingo-oophorectomy Hx of LASIK S/P cataract surgery S/P cholecystectomy Family History Sister Breast cancer Mother Bladder cancer Skin cancer Father Myocardial infarction Denies family history of Ovarian cancer Prostate cancer Colorectal cancer Social History Smoking Status: Current every day smoker Second Hand Exposure: No; Do You Dip or Chew Tobacco: No; Hx Alcohol Use: No Hx Substance Use: No Preferred Language: Khmer Communication Ability: Effective Visual Impairment: Blindness Hearing Ability: Hard of Hearing Linux Systems Administrator Required: No Beliefs That Will Affect Care: None marital status: Current Living Situation: Spouse current occupational status: retired Other Information That Helps Us Care for You: No Feels Safe at Home: Yes Safety Concerns: Feels Safe At This Time caffeine: No Dental Care, Regularly: Yes Physical Activity Frequency: Does not Exercise Seatbelt Use: always Sunscreen Use: Yes Assistive Devices: Walker Review of Systems Review of Systems: Unobtainable due to cognitive status Physical Exam Physical Exam: General: patient awake, alert to her name but not place/time/event or situation, lying in bed with mitts on. Skin: warm, dry, intact, venous stasis changes present on bilateral LE with skin flaking HEENT: NC/AT, PERRL, EOMI, anicteric sclera, conjunctiva without injection, external ear normal to inspection and nontender, nares patent, mucus membranes slightly dry, dentition intact, no oropharyngeal lesions, neck supple, trachea midline, no LAD, no thyromegaly, no JVD, LARGE scab noted on head. Heart: +S1/S2, regular, 92BPM, no m/r/g, 1-2+ b/l LE edema, calves equal in size nontender to palpation Lungs: no rales/rhonchi/wheezes, diminished in the bases, poor inspiratory effort when asked to take a deep breath, stable on room air Abd: +hypoactive, soft, non-distended, not focally tender although yelling out when touched anywhere, Ext: cool, 2+ pulses in UE/LE bilaterally, no clubbing/cyanosis, 2+ bilateral LE edema tender to palpation across thoracic spine Neuro: alert and oriented to self but not place/time/situation. generalized weakness now slightly improved (wheelchair at baseline but was witnessed standing up with walker with therapy 03/25) Results & Data Results & Data ([facility]) Vital Signs (Past 12 Hours) Vital Signs Temp Pulse Resp BP Pulse Ox 04/05/21 13:23 96 04/05/21 12:42 36.9 C 92 H 18 163/86 H 96 PG Care Time/CCT Total # of Minutes Spent Total Time Spent with Patient: Total time spent is greater than 50% in coordination of care (as documented) at patient's floor/unit and/or counseling patient: Coding Level of Care Code 72829 Initial Inpt Care Lvl 3 Diagnoses AMS (altered mental status) R41.82 Altered mental status type: unspecified Dementia F03.90 History of basal cell carcinoma Z85.828 Depression F32.9 Diabetes type 2, controlled E11.9 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
[2021-04-05] MEDS ORDERED: TROLAMINE SALICYLATE 10% CRM 255 APPLN/85 GM TUBE EXT PRN (19:04)
[2021-04-05] MEDS ORDERED: ARTIFICIAL TEARS OP PRN (19:06)
[2021-04-05] MEDS ORDERED: ACETAMINOPHEN 325 MG TAB PO PRN (19:08)
[2021-04-05] MEDS ORDERED: GLUCOSE 40% GEL 15 GM TUBE PO PRN (19:30)
[2021-04-05] MEDS ORDERED: DEXTROSE 50% 50 ML SYRINGE IV PRN (19:30)
[2021-04-05] MEDS ORDERED: GLUCAGON FOR INJ 1 MG VIAL IM PRN (19:30)
[2021-04-05] MEDS ORDERED: CARBOHYDRATES FOR HYPOGLYCEMIA PO PRN (19:30)
[2021-04-05] MEDS ORDERED: HYDROCORTISONE 10 MG TAB PO ONE (19:30)
[2021-04-05] MEDS ORDERED: GLUCOSE 10 TABS/TUBE PO PRN (19:30)
[2021-04-05] MEDS ORDERED: INSULIN HUMAN NPH SC ONE (20:00)
[2021-04-05] MEDS: LATANOPROST 0.005% OP SOLN 2.5 ML BTL OP SCH (20:07)
[2021-04-05] MEDS ORDERED: QUEtiapine FUMARATE 25 MG TABLET PO ONE (21:30)
[2021-04-05] MEDS: INSULIN ASPART PER UNIT SC SCH (22:27)
[2021-04-05] MEDS: POTASSIUM CHLORIDE CRTAB 20 MEQ TABCR PO SCH (22:29)
[2021-04-06] MEDS ORDERED: INSULIN ASPART PER UNIT SC ONE (02:00)
[2021-04-06] MEDS: LEVOTHYROXINE SODIUM 125 MCG TABLET PO SCH (06:21)
[2021-04-06] MEDS: INSULIN ASPART PER UNIT SC SCH ×4 (08:37→21:00)
[2021-04-06] MEDS: ADVANCED PROBIOTIC 1250 MG CAPSULE PO SCH (08:50)
[2021-04-06] MEDS: POTASSIUM CHLORIDE CRTAB 20 MEQ TABCR PO SCH ×2 (08:50→20:59)
[2021-04-06] MEDS: MULTIVITAMIN TAB PO SCH (08:50)
[2021-04-06] MEDS: DESMOPRESSIN ACETATE 0.1 MG TAB PO SCH (08:51)
[2021-04-06] MEDS: CHLORTHALIDONE 25 MG TAB PO SCH (08:51)
[2021-04-06] MEDS: DOCUSATE SODIUM 100 MG CAP PO SCH (08:51)
[2021-04-06] MEDS: MIRABEGRON ER 25 MG TAB PO SCH (08:51)
[2021-04-06] MEDS: HYDROCORTISONE 10 MG TAB PO SCH ×2 (08:52→13:00)
[2021-04-06] MEDS: CEFDINIR 300 MG CAP PO SCH (08:52)
[2021-04-06] MEDS: CALCITRIOL 0.25 MCG CAPSULE PO SCH (08:54)
[2021-04-06] MEDS ORDERED: INSULIN HUMAN NPH SC ONE (09:15)
--- NOTE | 2021-04-06 12:31 | Palliative Care Consultation ---
Date of Consultation April 06, 2021 Assessment & Plan (1) Palliative care encounter: Yoav is an 85 year old who presented to the [facility] from home with increased weakness, altered mental status, from home. She was a recent admission and was found to have thoracic fractures T9-T12. She has a complex medical history that includes surgery that was performed for a meningioma. Yoav developed seizures post operatively. 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 This was complicated by intracranial hemorrhage post- operatively and she ultimately has continued to decline thereafter.Additional PMH includes: senile degeneration of the brain, CVA, depression, lymphedema, hyperna+, She is currently requiring near full care from her at home. Palliative medicine consulted to discuss overall goals of care. I met with the patient who was able to open her eyes for me, but no real meaningful interaction. She did answer yes and no to a few questions. She appears more increasingly frail even compared to her last admission. I called her Hiro and talked to him at length. He feels defeated that he was unable to provide care to her and feels he himself is becoming frail with increased weight loss, etc. His overall goal has shifted to focus on a skilled approach to her care at a nursing facility (SNF) and transition to hospice in the near future. She would certainly qualify for Hospice with a FAST score of all of 6 and 7A. This was discussed with case management and hospitalist. For now, palliative will sign off. (2) AMS (altered mental status): Altered mental status type: unspecified Qualified Code(s): R41.82 - Altered mental status, unspecified (3) Dementia: (4) Weakness: History of Present Illness Reason for Consultation: goals of care Requesting Physician: Dr. Daniel Attending Physician: Michel Daniel History of Present Illness Yoav is an 85 year old who presented to the [facility] from home with increased weakness, altered mental status, from home. She was a recent admission and was found to have thoracic fractures T9-T12. She has a complex medical history that includes surgery that was performed for a meningioma. Yoav developed seizures post operatively. 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 This was complicated by intracranial hemorrhage post- operatively and she ultimately has continued to decline thereafter.Additional PMH includes: senile degeneration of the brain, CVA, depression, lymphedema, hyperna+, She is currently requiring near full care from her at home. Palliative medicine consulted to discuss overall goals of care. Thanks for involving palliative medicine with this patient. Allergies Allergy/AdvReac Type Severity Reaction Status Date / Time amoxicillin Allergy Intermediate Swelling Verified 03/23/21 17:21 of Lips Cipro Allergy Intermediate RASH, Verified 08/03/17 14:29 NAUSEA ciprofloxacin Allergy Intermediate RASH, Verified 03/23/21 17:21 NAUSEA Sulfa (Sulfonamide Allergy Intermediate RASH Verified 03/23/21 17:21 Antibiotics) biotin Allergy Unknown UNKN Verified 03/23/21 17:21 cefepime AdvReac Severe HALLUCINATI Verified 03/23/21 17:21 ONS diphenhydramine AdvReac Severe HYPER Verified 03/23/21 17:21 INSOMNIA mirtazapine AdvReac Intermediate altered Verified 03/23/21 17:21 mental status changes nitrofurantoin AdvReac Intermediate CHEST Verified 03/23/21 17:21 PAIN, CONFUSION oxycodone AdvReac Mild N/V Verified 03/23/21 17:21 Home Medications Medication Instructions Recorded Confirmed Type Bifidobacterium infantis 4 mg 4 mg PO DAILY 08/08/18 04/05/21 History capsule (Align) acetaminophen 325 mg capsule 325 mg PO Q6H PRN 08/08/18 04/05/21 History docusate sodium 100 mg capsule 100 mg PO DAILY 08/08/18 04/05/21 History latanoprost 0.005 % eye drops 1 drops OP QPM 08/08/18 04/05/21 History betamethasone dipropionate 0.05 % 1 appln TOP BID #60 ml 10/07/18 04/05/21 Rx lotion menthol 5 % topical gel (Biofreeze 5 % TOP BID PRN #30 gm 01/06/19 04/05/21 Rx (menthol)) polyethylene glycol 3350 17 17 gm PO DAILY PRN #510 gm 01/06/19 04/05/21 Rx gram/dose oral powder (Miralax) propylene glycol 0.6 % eye drops 1 drops OP QID PRN #20 ml 01/06/19 04/05/21 Rx (Systane Complete) levothyroxine 125 mcg tablet 125 mcg PO DAILY #90 tab 04/19/20 04/05/21 Rx glucagon 3 mg/actuation nasal 3 mg INTRANASAL ONCE PRN #2 ea 05/16/20 04/05/21 Rx spray (Baqsimi) chlorthalidone 25 mg tablet 12.5 mg PO DAILY 90 Days #45 tab 05/30/20 04/05/21 Rx furosemide 20 mg tablet 20 mg PO Q OTHER DAY PRN #15 tab 06/24/20 04/05/21 Rx alendronate 70 mg tablet See Rx Instructions .ROUTE 11/15/20 04/05/21 Rx .COMPLEX #13 tab hydrocortisone 10 mg tablet 10 mg PO .COMPLEX 90 Days #360 tab 12/19/20 04/05/21 Rx MDD 4 tabs daily omeprazole 20 mg capsule,delayed See Rx Instructions .ROUTE 12/27/20 04/05/21 Rx release .COMPLEX #90 capsule calcitriol 0.25 mcg capsule 0.25 mcg PO DAILY #90 cap 01/12/21 04/05/21 Rx cefdinir 300 mg capsule 300 mg PO DAILY #90 cap 01/16/21 04/05/21 Rx desmopressin 0.1 mg tablet 0.1 mg PO DAILY #90 tab 01/25/21 04/05/21 Rx potassium chloride 20 mEq 20 meq PO BID #180 tab 03/20/21 04/05/21 Rx tablet,extended release(part/cryst) mirabegron 50 mg tablet,extended 50 mg PO DAILY #90 tab 03/21/21 04/05/21 Rx release 24 hr (Myrbetriq) multivitamin 1 tab PO DAILY 03/23/21 04/05/21 History insulin regular hum U-500 conc See Rx Instructions SQ .COMPLEX #3 04/04/21 04/05/21 Rx (Humulin R U-500 (Conc) Insulin box Kwikpen) trazodone 50 mg tablet 50 mg PO .QHS PRN #30 tab 04/05/21 04/05/21 Rx Patient History Medical History (Updated 04/06/21 @ 23:35 by HUMAIRA Maldonado) Acquired cyst of kidney Ambulatory dysfunction Confusion GERD (gastroesophageal reflux disease) Glaucoma History of basal cell carcinoma History of CVA (cerebrovascular accident) History of meningioma History of recurrent vertebral fractures Homonymous hemianopsia Hypertension Insomnia Nephrolithiasis OA (osteoarthritis) of knee Obesity Osteoporosis Palliative care encounter Palliative care encounter 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 Type 2 diabetes mellitus, with long-term current use of insulin Urinary incontinence Vitamin D insufficiency Weakness Surgical History H/O craniotomy H/O rectal polypectomy History of laparoscopic cholecystectomy History of salpingo-oophorectomy Hx of LASIK S/P cataract surgery S/P cholecystectomy Family History Sister Breast cancer Mother Bladder cancer Skin cancer Father Myocardial infarction Denies family history of Ovarian cancer Prostate cancer Colorectal cancer Social History Smoking Status: Current every day smoker Second Hand Exposure: No; Do You Dip or Chew Tobacco: No; Hx Alcohol Use: No Hx Substance Use: No Preferred Language: [place] Communication Ability: Effective Visual Impairment: Blindness Hearing Ability: Hard of Hearing Head Usher Required: No Beliefs That Will Affect Care: None marital status: Current Living Situation: Spouse current occupational status: retired Other Information That Helps Us Care for You: No Feels Safe at Home: Yes Safety Concerns: Feels Safe At This Time caffeine: No Dental Care, Regularly: Yes Physical Activity Frequency: Does not Exercise Seatbelt Use: always Sunscreen Use: Yes Assistive Devices: Glasses Review of Systems Review of Systems: Unobtainable due to cognitive status Physical Exam Constitutional: + frail appearing ENMT: Mouth: + dry oral mucous membranes Respiratory: normal respiratory effort Cardiovascular: Rate/Rhythm: regular rate and regular rhythm Extremities: normal capillary refill Gastrointestinal (Abdomen): Inspection/Auscultation: abdomen normal to inspection Skin: + skin atrophy, + dry skin, + ecchymosis and + pallor Psychiatric: Orientation: alert and oriented to person Results & Data ([facility]) Vital Signs (Past 12 Hours) Vital Signs Temp Pulse Resp BP Pulse Ox 04/06/21 07:02 37.3 C 93 H 18 155/77 H 92 PG Care Time/CCT Total # of Minutes Spent Total Time Spent with Patient: Total time spent is greater than 50% in coordination of care (as documented) at patient's floor/unit and/or counseling patient: Coding Level of Care Code 03325 Inpt Consult Level 3 Diagnoses Palliative care encounter Z51.5 AMS (altered mental status) R41.82 Altered mental status type: unspecified Dementia F03.90 Weakness R53.1
[2021-04-06] MEDS: ENOXAPARIN INJ 40 MG/0.4 ML SYR SQ SCH (13:00)
[2021-04-06] MEDS: INSULIN HUMAN NPH SC SCH (17:41)
[2021-04-06] MEDS: LATANOPROST 0.005% OP SOLN 2.5 ML BTL OP SCH (21:00)
--- NOTE | 2021-04-06 22:13 | Hospitalist Progress Note ---
Date of Service April 06, 2021 Assessment & Plan (1) AMS (altered mental status): Plan: Patient has altered mental status. Likely is delirius and has not improved since last admission. Delirium carries a poor prognosis especially when in the hospital. is agreeable to placement and DNR appreciate input from palliative care. Patient will be placed at SNF, with likely transition to hospice (2) Dementia: Plan: This appears to be chronic. Delirium is likely worsening her condition will order seroquel at bedtime PRN, will monitor (3) History of basal cell carcinoma: Plan: chronic (4) Depression: Plan: resume home meds (5) Diabetes type 2, controlled: Plan: Glycemic management consultation. Patient on U500 at home. 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 No evidence of bleeding or secondary infection -Montior Admission and Anticipated Discharge Date Admission Date: April 05, 2021 Subjective 86 yo femlae remains confused. Review of Systems Review of Systems: All systems reviewed & are unremarkable except as noted in HPI & below Physical Exam Physical Exam: General: patient awake, alert to her name but not place/time/event or situation, lying in bed with mitts on. Skin: warm, dry, intact, venous stasis changes present on bilateral LE with skin flaking HEENT: NC/AT, PERRL, EOMI, anicteric sclera, conjunctiva without injection, external ear normal to inspection and nontender, nares patent, mucus membranes slightly dry, dentition intact, no oropharyngeal lesions, neck supple, trachea midline, no LAD, no thyromegaly, no JVD, LARGE scab noted on head. Heart: +S1/S2, regular, 92BPM, no m/r/g, 1-2+ b/l LE edema, calves equal in size nontender to palpation Lungs: no rales/rhonchi/wheezes, diminished in the bases, poor inspiratory ef fort when asked to take a deep breath, stable on room air Abd: +hypoactive, soft, non-distended, not focally tender although yelling out when touched anywhere, Ext: cool, 2+ pulses in UE/LE bilaterally, no clubbing/cyanosis, 2+ bilateral LE edema tender to palpation across thoracic spine Neuro: alert and oriented to self but not place/time/situation. generalized weakness now slightly improved (wheelchair at baseline but was witnessed standing up with walker with therapy 03/25) Results & Data Results & Data ([facility]) Vital Signs (Past 12 Hours) Vital Signs Temp Pulse Resp BP Pulse Ox 04/06/21 15:28 36.8 C 91 H 18 120/75 92 PG Care Time/CCT Total # of Minutes Spent Total Time Spent with Patient: Total time spent is greater than 50% in coordination of care (as documented) at patient's floor/unit and/or counseling patient: Coding Level of Care Code 62323 Subseq Hosp Care Lvl 2 Diagnoses AMS (altered mental status) R41.82 Altered mental status type: unspecified Dementia F03.90 History of basal cell carcinoma Z85.828 Depression F32.9 Diabetes type 2, controlled E11.9 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
[2021-04-07] MEDS: LEVOTHYROXINE SODIUM 125 MCG TABLET PO SCH (05:46)
[2021-04-07] MEDS: INSULIN ASPART PER UNIT SC SCH ×4 (08:41→21:08)
[2021-04-07] MEDS: INSULIN HUMAN NPH SC SCH ×2 (08:47→18:00)
[2021-04-07] MEDS: CHLORTHALIDONE 25 MG TAB PO SCH (09:03)
[2021-04-07] MEDS: ENOXAPARIN INJ 40 MG/0.4 ML SYR SQ SCH (09:03)
[2021-04-07] MEDS: CEFDINIR 300 MG CAP PO SCH (09:03)
[2021-04-07] MEDS: DESMOPRESSIN ACETATE 0.1 MG TAB PO SCH (09:04)
[2021-04-07] MEDS: HYDROCORTISONE 10 MG TAB PO SCH ×2 (09:04→13:01)
[2021-04-07] MEDS: CALCITRIOL 0.25 MCG CAPSULE PO SCH (09:05)
[2021-04-07] MEDS: MULTIVITAMIN TAB PO SCH (09:05)
[2021-04-07] MEDS: ADVANCED PROBIOTIC 1250 MG CAPSULE PO SCH (09:05)
[2021-04-07] MEDS: MIRABEGRON ER 25 MG TAB PO SCH (09:05)
[2021-04-07] MEDS: DOCUSATE SODIUM 100 MG CAP PO SCH (09:05)
[2021-04-07] MEDS: POTASSIUM CHLORIDE CRTAB 20 MEQ TABCR PO SCH ×2 (09:05→21:11)
--- NOTE | 2021-04-07 11:56 | Hospitalist Progress Note ---
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 May be multifactorial as she has not been resting and sleeping at home. She does appear to be more calm today and not being violent to staff or self. She has been off her mitts since 04/06. Delirium carries a poor prognosis especially when in the hospital, but she appears to be having a good day on 04/07. is agreeable to placement and DNR appreciate input from palliative care. Patient will be placed at SNF, with likely transition to hospice (2) Dementia: Plan: This appears to be chronic. Delirium is likely worsening her condition will order seroquel at bedtime PRN, will monitor (3) History of basal cell carcinoma: Plan: chronic (4) Depression: Plan: resume home meds (5) Diabetes type 2, controlled: Plan: Glycemic management consultation. Patient on U500 at home. 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 No evidence of bleeding or secondary infection -Montior Given how patient has been confused and having poor quality of life, family does not appear to be leaning towards aggressive treatment. Also given age and comorbidities, she does not appear to be a candidate for aggressive treatment, if she actually does have a recurrence of her cancer. At this point, will defer any further imaging and monitor her confusion. Palliative care has been consulted and wants placement to SNF as patient is not able to tolerate being at home as she requires too much care. Admission and Anticipated Discharge Date Admission Date: April 05, 2021 Subjective 86 yo female is more calm today. As per nurse, she is waking up, eating her pills following commands. No longer violent. She does open her eyes during my exam, but states she wants to sleep. Review of Systems Review of Systems: All systems reviewed & are unremarkable except as noted in HPI & below Physical Exam Physical Exam: General: patient awake, alert to her name but not place/time/event or situation, lying in bed. mitts are off. Skin: warm, dry, intact, venous stasis changes present on bilateral LE with skin flaking HEENT: NC/AT, PERRL, EOMI, anicteric sclera, conjunctiva without injection, external ear normal to inspection and nontender, nares patent, mucus membranes slightly dry, dentition intact, no oropharyngeal lesions, neck supple, trachea midline, no LAD, no thyromegaly, no JVD, LARGE scab noted on head. Heart: +S1/S2, regular, 92BPM, no m/r/g, 1-2+ b/l LE edema, calves equal in size nontender to palpation Lungs: no rales/rhonchi/wheezes, diminished in the bases, poor inspiratory effort when asked to take a deep breath, stable on room air Abd: +hypoactive, soft, non-distended, not focally tender although yelling out when touched anywhere, Ext: cool, 2+ pulses in UE/LE bilaterally, no clubbing/cyanosis, 2+ bilateral LE edema tender to palpation across thoracic spine Neuro: alert and oriented to self but not place/time/situation. generalized weakness now slightly improved (wheelchair at baseline but was witnessed standing up with walker with therapy 03/25) Results & Data Results & Data ([facility]) Vital Signs (Past 12 Hours) Vital Signs Temp Pulse Resp BP Pulse Ox 04/07/21 06:50 36.7 C 83 16 144/78 H 96 PG Care Time/CCT Total # of Minutes Spent Total Time Spent with Patient: Total time spent is greater than 50% in coordination of care (as documented) at patient's floor/unit and/or counseling patient: Coding Level of Care Code 85758 Subseq Hosp Care Lvl 3 Diagnoses AMS (altered mental status) R41.82 Altered mental status type: unspecified Dementia F03.90 History of basal cell carcinoma Z85.828 Depression F32.9 Diabetes type 2, controlled E11.9 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
--- NOTE | 2021-04-07 14:57 | Pharmacy Report ---
Pharmacy Glycemic Short Note 2 - Date of Service April 07, 2021 - Glycemic Short BSG Results (Last 24 hours): 04/06/21 04/06/21 04/07/21 17:14 20:37 07:53 POC Glucose 109 H 113 H 70 04/07/21 12:14 POC Glucose 98 OUTPATIENT ANTIDIABETIC REGIMEN: * U-500 80 units SQ BID * A1c = 6.9% (03/25/21) ASSESSMENT: * Yoav is a 86 yo T2DM * She is known to the glycemic service and has required significantly less insulin as an inpatient compared to her home regimen in the past. * BSGs have been below goal today, therefore NPH will be further reduced. * Post prandial BSGS are well controlled with very little carbohydrate intake. PLAN FOR INPATIENT GLYCEMIC CONTROL: * Hold outpatient oral diabetes medications * Basal insulin * NPH 13-15 units SQ BID (13 units for BSG 140 mg/dL or less, 15 units for > 140 mg/dL) * Bolus insulin * NovoLog per scale ACHS or Q6hrs while NPO * Goal Range: Low 120 mg/dL - High 150 mg/dL * Correction Factor: 20 mg/dL/unit * Nutritional / Prandial insulin per carb ratio of 1 unit per 8 grams CHO consumed PLAN FOR DISCHARGE: * tbd
--- NOTE | 2021-04-07 20:37 | Electrocardiogram Report ---
Test Reason : Blood Pressure : / mmHG Vent. Rate : 085 BPM Atrial Rate : 085 BPM P-R Int : 242 ms QRS Dur : 080 ms QT Int : 382 ms P-R-T Axes : 065 -14 013 degrees QTc Int : 454 ms Sinus rhythm with 1st degree A-V block with Premature atrial complexes Inferior infarct , age undetermined Anterolateral infarct (cited on or before 05-JUN-2014) Abnormal ECG When compared with ECG of 23-MAR-2021 17:37, Premature atrial complexes are now Present OK interval has increased Confirmed by Axel Banda ([id number]) on 04/07/2021 8:37:23 PM Referred By: Confirmed By:Axel Banda
[2021-04-07] MEDS: LATANOPROST 0.005% OP SOLN 2.5 ML BTL OP SCH (21:09)
[2021-04-08] MEDS: LEVOTHYROXINE SODIUM 125 MCG TABLET PO SCH (05:41)
[2021-04-08] MEDS: POTASSIUM CHLORIDE CRTAB 20 MEQ TABCR PO SCH ×2 (08:26→20:27)
[2021-04-08] MEDS: ADVANCED PROBIOTIC 1250 MG CAPSULE PO SCH (08:27)
[2021-04-08] MEDS: DESMOPRESSIN ACETATE 0.1 MG TAB PO SCH (08:27)
[2021-04-08] MEDS: CEFDINIR 300 MG CAP PO SCH (08:27)
[2021-04-08] MEDS: CALCITRIOL 0.25 MCG CAPSULE PO SCH (08:27)
[2021-04-08] MEDS: CHLORTHALIDONE 25 MG TAB PO SCH (08:27)
[2021-04-08] MEDS: DOCUSATE SODIUM 100 MG CAP PO SCH (08:27)
[2021-04-08] MEDS: MULTIVITAMIN TAB PO SCH (08:27)
[2021-04-08] MEDS: MIRABEGRON ER 25 MG TAB PO SCH (08:27)
[2021-04-08] MEDS: HYDROCORTISONE 10 MG TAB PO SCH ×2 (08:27→13:01)
[2021-04-08] MEDS: INSULIN ASPART PER UNIT SC SCH ×4 (09:02→20:50)
[2021-04-08] MEDS: ENOXAPARIN INJ 40 MG/0.4 ML SYR SQ SCH (10:02)
--- NOTE | 2021-04-08 10:14 | Pharmacy Report ---
Pharmacy Glycemic Short Note 2 - Date of Service April 08, 2021 - Glycemic Short BSG Results (Last 24 hours): 04/07/21 04/07/21 04/07/21 12:14 17:19 20:48 POC Glucose 98 169 H 112 H 04/08/21 08:19 POC Glucose 74 OUTPATIENT ANTIDIABETIC REGIMEN: * U-500 80 units SQ BID * A1c = 6.9% (03/25/21) ASSESSMENT: 04/08/21 * Pt has received 32 units of insulin over the past 24hrs * 30 units of basal with NPH * 2 units of bolus with NovoLog * BSGs 61-24-592-112 mg/dl. Fasting today is 74 mg/dL which is stable. * Rearrange basal insulin to 20 units in morning and 10 units at dinner. Background * Yoav is a 86 yo T2DM * She is known to the glycemic service and has required significantly less insulin as an inpatient compared to her home regimen in the past. * BSGs have been below goal today, therefore NPH will be further reduced. * Post prandial BSGS are well controlled with very little carbohydrate intake. PLAN FOR INPATIENT GLYCEMIC CONTROL: * Hold outpatient oral diabetes medications * Basal insulin * NPH 20 units SQ in morning and 10 units SQ with dinner. * Bolus insulin * NovoLog per scale ACHS or Q6hrs while NPO * Goal Range: Low 120 mg/dL - High 150 mg/dL * Correction Factor: 25 mg/dL/unit * Nutritional / Prandial insulin per carb ratio of 1 unit per 8 grams CHO consumed PLAN FOR DISCHARGE: * tbd
[2021-04-08] MEDS: INSULIN HUMAN NPH SC SCH ×2 (10:44→18:16)
[2021-04-08] MEDS ORDERED: INSULIN HUMAN NPH SC SCH (16:30)
[2021-04-08] MEDS: LATANOPROST 0.005% OP SOLN 2.5 ML BTL OP SCH (20:28)
--- NOTE | 2021-04-08 22:25 | Hospitalist Progress Note ---
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 May be multifactorial as she has not been resting and sleeping at home. She does appear to be more calm today and not being violent to staff or self. She has been off her mitts since 04/06. Delirium carries a poor prognosis especially when in the hospital, but she appears to be having a good day on 04/07. is agreeable to placement and DNR appreciate input from palliative care. Patient will be placed at SNF, with likely transition to hospice (2) Dementia: Plan: This appears to be chronic. Delirium is likely worsening her condition will order seroquel at bedtime PRN, will monitor (3) History of basal cell carcinoma: Plan: chronic (4) Depression: Plan: resume home meds (5) Diabetes type 2, controlled: Plan: Glycemic management consultation. Patient on U500 at home. 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 No evidence of bleeding or secondary infection -[place]ior Given how patient has been confused and having poor quality of life, family does not appear to be leaning towards aggressive treatment. Also given age and comorbidities, she does not appear to be a candidate for aggressive treatment, if she actually does have a recurrence of her cancer. At this point, will defer any further imaging and monitor her confusion. Palliative care has been consulted and wants placement to SNF as patient is not able to tolerate being at home as she requires too much care. Admission and Anticipated Discharge Date Admission Date: April 05, 2021 Subjective Patient is comofrtable. No new complaints. Review of Systems Review of Systems: All systems reviewed & are unremarkable except as noted in HPI & below Physical Exam Physical Exam: General: patient awake, alert to her name but not place/time/event or situation, lying in bed. mitts are off. Skin: warm, dry, intact, venous stasis changes present on bilateral LE with skin flaking HEENT: NC/AT, PERRL, EOMI, anicteric sclera, conjunctiva without injection, external ear normal to inspection and nontender, nares patent, mucus membranes slightly dry, dentition intact, no oropharyngeal lesions, neck supple, trachea midline, no LAD, no thyromegaly, no JVD, LARGE scab noted on head. Heart: +S1/S2, regular, 92BPM, no m/r/g, 1-2+ b/l LE edema, calves equal in size nontender to palpation Lungs: no rales/rhonchi/wheezes, diminished in the bases, poor inspiratory effort when asked to take a deep breath, stable on room air Abd: +hypoactive, soft, non-distended, not focally tender although yelling out when touched anywhere, Ext: cool, 2+ pulses in UE/LE bilaterally, no clubbing/cyanosis, 2+ bilateral LE edema tender to palpation across thoracic spine Neuro: alert and oriented to self but not place/time/situation. generalized weakness now slightly improved (wheelchair at baseline but was witnessed standing up with walker with therapy 03/25) Results & Data Results & [facility] ([facility]) Vital Signs (Past 12 Hours) Vital Signs Temp Pulse Resp BP Pulse Ox 04/08/21 22:19 36.7 C 81 16 132/64 95 04/08/21 15:25 36.8 C 82 16 121/73 93 PG Care Time/CCT Total # of Minutes Spent Total Time Spent with Patient: Total time spent is greater than 50% in coordination of care (as documented) at patient's floor/unit and/or counseling patient: Coding Level of Care Code 46527 Subseq Hosp Care Lvl 1 Diagnoses AMS (altered mental status) R41.82 Altered mental status type: unspecified Dementia F03.90 History of basal cell carcinoma Z85.828 Depression F32.9 Diabetes type 2, controlled E11.9 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
[2021-04-09] MEDS: LEVOTHYROXINE SODIUM 125 MCG TABLET PO SCH (05:28)
[2021-04-09] MEDS: CALCITRIOL 0.25 MCG CAPSULE PO SCH (08:27)
[2021-04-09] MEDS: POTASSIUM CHLORIDE CRTAB 20 MEQ TABCR PO SCH ×2 (08:31→21:30)
[2021-04-09] MEDS: DOCUSATE SODIUM 100 MG CAP PO SCH (08:31)
[2021-04-09] MEDS: ENOXAPARIN INJ 40 MG/0.4 ML SYR SQ SCH (08:31)
[2021-04-09] MEDS: CEFDINIR 300 MG CAP PO SCH (08:32)
[2021-04-09] MEDS: CHLORTHALIDONE 25 MG TAB PO SCH (08:32)
[2021-04-09] MEDS: ADVANCED PROBIOTIC 1250 MG CAPSULE PO SCH (08:33)
[2021-04-09] MEDS: HYDROCORTISONE 10 MG TAB PO SCH ×2 (08:33→13:30)
[2021-04-09] MEDS: MIRABEGRON ER 25 MG TAB PO SCH (08:33)
[2021-04-09] MEDS: DESMOPRESSIN ACETATE 0.1 MG TAB PO SCH (08:33)
[2021-04-09] MEDS: MULTIVITAMIN TAB PO SCH (08:33)
[2021-04-09] MEDS: INSULIN HUMAN NPH SC SCH ×2 (08:55→18:01)
[2021-04-09] MEDS: INSULIN ASPART PER UNIT SC SCH ×4 (08:59→21:05)
--- NOTE | 2021-04-09 16:17 | Hospitalist Progress Note ---
Date of Service April 09, 2021 Assessment & Plan (1) AMS (altered mental status): Plan: AMS 2/2 Metabolic encephalopathy in setting of panhypopituitarism and adrenal insufficiency - hx of advanced dementia. - Presentation multifactorial as she has not been resting and sleeping at home. - Improving - Off soft mitts since 04/06. - is agreeable to placement and DNR - Appreciate input from palliative care. - Pending SNF placement with transition to hospice care (2) Dementia: Plan: - Progressive, chronic - Delirium is likely worsening her condition - Seroquel at bedtime PRN, will monitor (3) History of basal cell carcinoma: Plan: chronic (4) Depression: Plan: resume home meds (5) Diabetes type 2, controlled: Plan: Glycemic management consultation. Patient on U500 at home. 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 No evidence of bleeding or secondary infection - Given how patient has been confused and having poor quality of life, family does not appear to be leaning towards aggressive treatment. - Also given age and comorbidities, she does not appear to be a candidate for aggressive treatment, if she actually does have a recurrence of her cancer. - At this point, will defer any further imaging and monitor her confusion. - Palliative care has been consulted and wants placement to SNF as patient is not able to tolerate being at home as she requires too much care. Admission and Anticipated Discharge Date Admission Date: April 05, 2021 Subjective Seen at bedside this morning. No acute questions/concerns. No pain at time of assessment. Combative breakfast, denies nausea/stomach pain/diarrhea/constipation. Appears comfortable. Review of Systems Review of Systems: All systems reviewed & are unremarkable except as noted in Subjective Physical Exam Physical Exam: General: A&O to name, not oriented to date/place. NAD. Cooperative. HEENT: Large scab overlying cranial lesion present without acute change. MM tacky. EoM intact, vision/hearing grossly intact Pulm: Symmetrical chest rise. No increase work of breathing. No respiratory distress. Cardiac: RRR, -mrg. Radial pulses intact and symmetrical. Abdominal: Nontender, nondistended, soft. BS present. BS intact Extremities: Bilateral lower extremity edema, trace hand edema. Gentle compression sleeves in place. Sensation to soft touch in hands/feet intact. Hospice Consultant strength grossly intact bilaterally. Results & Data Results & Data ([facility]) Vital Signs (Past 12 Hours) Vital Signs Temp Pulse Resp BP Pulse Ox 04/09/21 06:46 36.5 C 88 19 111/72 91 PG Care Time/CCT Total # of Minutes Spent Total Time Spent with Patient: Total time spent is greater than 50% in coordination of care (as documented) at patient's floor/unit and/or counseling patient: Coding Level of Care Code 49910 Subseq Hosp Care Lvl 1 Diagnoses AMS (altered mental status) R41.82 Altered mental status type: unspecified Dementia F03.90 History of basal cell carcinoma Z85.828 Depression F32.9 Diabetes type 2, controlled E11.9 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
[2021-04-09] MEDS: QUEtiapine FUMARATE 25 MG TABLET PO PRN (21:30)
[2021-04-09] MEDS: LATANOPROST 0.005% OP SOLN 2.5 ML BTL OP SCH (21:35)
[2021-04-10] MEDS: traZODone HCL 50 MG TAB PO PRN (02:02)
[2021-04-10] MEDS: LEVOTHYROXINE SODIUM 125 MCG TABLET PO SCH (05:52)
--- NOTE | 2021-04-10 07:04 | Hospitalist Progress Note ---
Date of Service April 10, 2021 Assessment & Plan (1) AMS (altered mental status): Plan: Patient is an 86 year old female with PMHx Craniotomy x2 for meningioma and Rathke's cyst, Dementia, CVA, Primary Central diabetes insipidus, seconday adrenal insufficiency, central hypothyroidism, who presented for worsening altered mental status. AMS in the setting of Metabolic encephalopathy, panhypopituitarism, adrenal insufficiency -With additional history of advanced dementia -Has not required soft mitts since 04/06/21 -CT head on admission with 4.2 x2.3 cm mass-like abnormality overlying the R frontal craniotomy -Lesion was discussed with family on admission and they did not appear to be leaning towards aggressive treatment -Appreciate input from Palliative, at this time signed off -Will require SNF placement with plan to transition to hospice care - requests sent to [facility] and [facility] Dementia -Progressive, chronic, and worsened -Continue Seroquel qHS PRN DM2 -Glycemic consult placed Panhypopituitarism -Continue Desmopressin -Continue Synthroid Adrenal Insufficiency -Continue Cortef HTN -Continue Chlorthalidone Scalp Lesion -Continue Omnicef, chronic Dispo: Med/Surg, pending placement to SNF FEN: DM2 diet DVT: Lovenox Code: DNR/DNI Plan: Patient seen and examined, chart reviewed, case discussed with Dr. Silva and I agree with the assessment and plan as above except as otherwise noted Boyce is an 86-year-old female with a past medical history of meningioma with history of craniotomy no residual scab/open mesh, CVA, central diabetes insipidus, secondary AI, hypothyroidism with worsening mental status due to metabolic encephalopathy with panhypopituitary and AI. Patient is somewhat aggravated at bedside, would like her to be called to talk to her although will not express more details or why. Reports she is doing feels awful, but does not express any focal symptoms. Denies focal pain, chest pain. Exam unchanged from prior, large scab with mesh on anterior scalp visible, radial pulse intact with regular rate and rhythm, mucous membranes moist. At this time is pending SNF placement with plan to transition to hospice care, case management on board with placement pending. Spot labs as needed, glucose control adequate today. Admission and Anticipated Discharge Date Admission Date: April 05, 2021 Subjective Patient evaluated at the bedside this AM. Patient noting that she "feels awful" and that she wishes to talk to her Hiro. Cannot describe why she feels awful, just noting that "I just do." Denies any chest pain, chest pressure, SOB, abdominal pain, fever, chills, dysuria, NVD. Otherwise, patient was agreeable to exam this AM. Review of Systems Review of Systems: All systems reviewed & are unremarkable except as noted in Subjective Physical Exam Constitutional: well developed and well nourished; no acute distress Eyes: normal visual santiago by confrontation ENMT: external ear and nose normal, oropharynx normal Neck: trachea midline, no thyromegaly Respiratory: normal respiratory effort, lungs clear to auscultation Cardiovascular: RRR, no murmur, no edema Gastrointestinal (Abdomen): normal bowel sounds, soft, nontender, no hepatosplenomegaly Musculoskeletal: Head/Neck/Chest: + head abnormal to inspection (Large scab with mesh visible on anterior scalp ) Neurologic: moves all extremities Psychiatric: Orientation: alert, oriented to person and cooperative; + not oriented to place and + not oriented to time Results & Data Results & Data ([facility]) Vital Signs (Past 12 Hours) Vital Signs Temp Pulse Resp BP Pulse Ox 04/10/21 06:44 36.9 C 76 16 122/71 95 04/09/21 23:46 36.9 C 77 18 148/74 H 94 Resident Activity Tracking Resident Involvement: Resident Care Provided Care Provided: Adult Hospital Medicine (1) AMS (altered mental status) Altered mental status type: unspecified Qualified Code(s): R41.82 - Altered mental status, unspecified
[2021-04-10] MEDS: CHLORTHALIDONE 25 MG TAB PO SCH (09:19)
[2021-04-10] MEDS: ADVANCED PROBIOTIC 1250 MG CAPSULE PO SCH (09:19)
[2021-04-10] MEDS: MULTIVITAMIN TAB PO SCH (09:20)
[2021-04-10] MEDS: HYDROCORTISONE 10 MG TAB PO SCH ×2 (09:20→11:45)
[2021-04-10] MEDS: QUEtiapine FUMARATE 25 MG TABLET PO PRN (09:22)
[2021-04-10] MEDS: FUROSEMIDE 20 MG TAB PO PRN (09:22)
[2021-04-10] MEDS: CALCITRIOL 0.25 MCG CAPSULE PO SCH (09:23)
[2021-04-10] MEDS: MIRABEGRON ER 25 MG TAB PO SCH (09:23)
[2021-04-10] MEDS: ENOXAPARIN INJ 40 MG/0.4 ML SYR SQ SCH (09:23)
[2021-04-10] MEDS: CEFDINIR 300 MG CAP PO SCH (09:23)
[2021-04-10] MEDS: DESMOPRESSIN ACETATE 0.1 MG TAB PO SCH (09:23)
[2021-04-10] MEDS: INSULIN HUMAN NPH SC SCH ×2 (09:25→18:07)
[2021-04-10] MEDS: DOCUSATE SODIUM 100 MG CAP PO SCH (09:33)
[2021-04-10] MEDS: POTASSIUM CHLORIDE CRTAB 20 MEQ TABCR PO SCH ×2 (09:33→20:32)
[2021-04-10] MEDS: INSULIN ASPART PER UNIT SC SCH ×4 (09:36→21:24)
--- NOTE | 2021-04-10 10:55 | Pharmacy Report ---
Pharmacy Glycemic Short Note 2 - Date of Service April 10, 2021 - Glycemic Short BSG Results (Last 24 hours): 04/09/21 04/09/21 04/09/21 11:47 17:21 20:37 POC Glucose 161 H 151 H 71 04/10/21 07:52 POC Glucose 103 H OUTPATIENT ANTIDIABETIC REGIMEN: * U-500 80 units SQ BID * HbA1c = 6.9% (03/25/21) ASSESSMENT: 04/10: * Yoav received a total of 46 units of insulin yesterday (30 units NPH + 16 un its Novolog) * BSGs were well controlled: 845-210-723-71 mg/dL * Fasting BSG was well controlled at 103 mg/dL this AM * Appetite/diet improved yesterday. Remains on oral hydrocortisone. * No changes in insulin regimen today. 04/08: * Pt has received 32 units of insulin over the past 24hrs * 30 units of basal with NPH * 2 units of bolus with NovoLog * BSGs 90-92-379-112 mg/dl. Fasting today is 74 mg/dL which is stable. * Rearrange basal insulin to 20 units in morning and 10 units at dinner. Background * Yoav is a 86 yo T2DM * She is known to the glycemic service and has required significantly less insulin as an inpatient compared to her home regimen in the past. * BSGs have been below goal today, therefore NPH will be further reduced. * Post prandial BSGS are well controlled with very little carbohydrate intake. PLAN FOR INPATIENT GLYCEMIC CONTROL: * Basal insulin * NPH 20 units SC AM + 10 units SC PM * Bolus insulin * NovoLog per scale ACHS or Q6hrs while NPO * Goal Range: Low 120 mg/dL - High 150 mg/dL * Correction Factor: 30 mg/dL/unit * Nutritional / Prandial insulin per carb ratio of 1 unit per 8 grams CHO co nsumed PLAN FOR DISCHARGE: * HbA1c of 6.9% is well controlled and actually well below her goal of less than 8%. * Patient follows with [facility] as an [place]. Defer any insulin adjustments to them but would consider transition to NPH given low U-500 doses and changing mentation/appetite.
[2021-04-10 15:21] LABS: PTT LA Screen 30 sec (<=40)
[2021-04-10] MEDS: LATANOPROST 0.005% OP SOLN 2.5 ML BTL OP SCH (20:32)
[2021-04-11] MEDS: LEVOTHYROXINE SODIUM 125 MCG TABLET PO SCH (05:35)
[2021-04-11] MEDS: MULTIVITAMIN TAB PO SCH (08:35)
[2021-04-11] MEDS: HYDROCORTISONE 10 MG TAB PO SCH ×2 (08:36→13:05)
[2021-04-11] MEDS: MIRABEGRON ER 25 MG TAB PO SCH (08:36)
[2021-04-11] MEDS: CHLORTHALIDONE 25 MG TAB PO SCH (08:37)
[2021-04-11] MEDS: CALCITRIOL 0.25 MCG CAPSULE PO SCH (08:37)
[2021-04-11] MEDS: CEFDINIR 300 MG CAP PO SCH (08:37)
[2021-04-11] MEDS: ADVANCED PROBIOTIC 1250 MG CAPSULE PO SCH (08:37)
[2021-04-11] MEDS: DESMOPRESSIN ACETATE 0.1 MG TAB PO SCH (08:38)
[2021-04-11] MEDS: POTASSIUM CHLORIDE CRTAB 20 MEQ TABCR PO SCH ×2 (08:41→21:17)
[2021-04-11] MEDS: DOCUSATE SODIUM 100 MG CAP PO SCH (08:41)
[2021-04-11] MEDS: ENOXAPARIN INJ 40 MG/0.4 ML SYR SQ SCH (08:42)
[2021-04-11] MEDS: INSULIN HUMAN NPH SC SCH ×2 (08:53→18:13)
[2021-04-11] MEDS: INSULIN ASPART PER UNIT SC SCH ×4 (08:55→20:49)
--- NOTE | 2021-04-11 10:05 | Pharmacy Report ---
Pharmacy Glycemic Short Note 2 - Date of Service April 11, 2021 - Glycemic Short BSG Results (Last 24 hours): 04/10/21 04/10/21 04/10/21 11:48 17:09 20:41 POC Glucose 215 H 160 H 181 H 04/11/21 07:59 POC Glucose 116 H OUTPATIENT ANTIDIABETIC REGIMEN: * U-500 80 units SQ BID * HbA1c = 6.9% (03/25/21) ASSESSMENT: 04/11: * Received 39 units of insulin (30 units NPH + 9 units Novolog) * BSGs were acceptable: [id number] mg/dL * Fasting BSG well controlled at 116 mg/dL * Expect no changes in diet/appetite today. Therefore, no changes necessary to insulin regimen. 04/10: * Yoav received a total of 46 units of insulin yesterday (30 units NPH + 16 units Novolog) * BSGs were well controlled: 263-644-430-71 mg/dL * Fasting BSG was well controlled at 103 mg/dL this AM * Appetite/diet improved yesterday. Remains on oral hydrocortisone. * No changes in insulin regimen today. 04/08: * Pt has received 32 units of insulin over the past 24hrs * 30 units of basal with NPH * 2 units of bolus with NovoLog * BSGs 30-32-807-112 mg/dl. Fasting today is 74 mg/dL which is stable. * Rearrange basal insulin to 20 units in morning and 10 units at dinner. PLAN FOR INPATIENT GLYCEMIC CONTROL: * Basal insulin * NPH 20 units SC AM + 10 units SC PM * Bolus insulin * NovoLog per scale ACHS or Q6hrs while NPO * Goal Range: Low 120 mg/dL - High 150 mg/dL * Correction Factor: 30 mg/dL/unit * Nutritional / Prandial insulin per carb ratio of 1 unit per 8 grams CHO consumed PLAN FOR DISCHARGE: * HbA1c of 6.9% is well controlled and actually well below her goal of less than 8%. * If discharged to rehab facility, would recommend continuing current inpatient regimen at rehab: NPH 20 units SC w/ breakfast and 10 units SC w/ dinner as well as Novolog sliding scale. * Patient follows with [facility] as an outpatient. Defer any insulin adjustments to them but would consider transition to NPH given low U-500 doses and changing mentation/appetite.
--- NOTE | 2021-04-11 13:08 | Hospitalist Progress Note ---
Date of Service April 11, 2021 Assessment & Plan (1) AMS (altered mental status): Plan: Patient is an 86 year old female with PMHx Craniotomy x2 for meningioma and Rathke's cyst, Dementia, CVA, Primary Central diabetes insipidus, secondary adrenal insufficiency, central hypothyroidism, who presented for worsening altered mental status. AMS in the setting of Metabolic encephalopathy, panhypopituitarism, adrenal insufficiency -With additional history of advanced dementia -Has not required soft mitts since 04/06/21 -CT head on admission with 4.2 x2.3 cm mass-like abnormality overlying the R frontal craniotomy -Lesion was discussed with family on admission and they did not appear to be leaning towards aggressive treatment -Appreciate input from Palliative, at this time signed off -Will require SNF placement with plan to transition to hospice care - requests sent to [facility] and [facility], additional locations requested today -Plan for labs roughly weekly while inpatient (last on 04/05/21) Dementia -Progressive, chronic, and worsened over all -Continue Seroquel qHS PRN DM2 -Glycemic consult placed Panhypopituitarism -Continue Desmopressin -Continue Synthroid Adrenal Insufficiency -Continue Cortef HTN -Continue Chlorthalidone Scalp Lesion -Continue Omnicef, chronic Dispo: Med/Surg, pending placement to SNF FEN: DM2 diet DVT: Lovenox Code: DNR/DNI Admission and Anticipated Discharge Date Admission Date: April 05, 2021 Supervising Physician Co-Signing Physician Notes Patient seen and examined, chart reviewed, case discussed with Dr. Silva and I agree with the assessment and plan as above except as otherwise noted Austen is an 86-year-old female with a past medical history of meningioma with history of craniotomy no residual scab/open mesh, CVA, central diabetes insipidus, secondary AI, hypothyroidism with worsening mental status due to metabolic encephalopathy with panhypopituitary and AI. Remains clinically stable, comfortable at time of exam. Physical covered by dressing exam unchanged from prior, large scab with mesh on anterior scalp visible, radial pulse intact with regular rate and rhythm, mucous membranes moist. At this time is pending SNF placement with plan to transition to hospice care, case management on board with placement pending. Spot labs as needed, glucose control adequate today. Subjective Patient evaluated at the bedside. Noting today that she "feels much better." Denies any complaints or concerns at this time. Denies NVD, SOB, chest pain, chest pressure, fever, chills. Review of Systems Review of Systems: All systems reviewed & are unremarkable except as noted in Subjective Physical Exam Constitutional: well developed and well nourished; no acute distress ENMT: external ear and nose normal, oropharynx normal Neck: trachea midline, no thyromegaly Respiratory: normal respiratory effort, lungs clear to auscultation Cardiovascular: RRR, no murmur, no edema Gastrointestinal (Abdomen): normal bowel sounds, soft, nontender, no hepatosplenomegaly Musculoskeletal: Head/Neck/Chest: + head abnormal to inspection (scab and mesh covered with dressing this AM) Neurologic: moves all extremities Psychiatric: Orientation: alert, oriented to person and cooperative; + not oriented to place and + not oriented to time Results & Data Results & Data ([facility]) Vital Signs (Past 12 Hours) Vital Signs Temp Pulse Resp BP Pulse Ox 04/11/21 07:34 37.2 C 81 16 97/63 L 94 Resident Activity Tracking Resident Involvement: Resident Care Provided Care Provided: Adult Hospital Medicine (1) AMS (altered mental status) Altered mental status type: unspecified Qualified Code(s): R41.82 - Altered mental status, unspecified
--- NOTE | 2021-04-11 17:19 | Billing Data ---
Date of Service April 10, 2021 Coding Level of Care Code 51704 Subseq Hosp Care Lvl 1
--- NOTE | 2021-04-11 17:19 | Billing Data ---
Date of Service April 11, 2021 Coding Level of Care Code 94721 Subseq Hosp Care Lvl 1
[2021-04-11] MEDS: LATANOPROST 0.005% OP SOLN 2.5 ML BTL OP SCH (21:18)
[2021-04-12] MEDS: LEVOTHYROXINE SODIUM 125 MCG TABLET PO SCH (05:35)
[2021-04-12] MEDS: QUEtiapine FUMARATE 25 MG TABLET PO PRN ×2 (07:57→19:25)
[2021-04-12] MEDS ORDERED: SODIUM CHLORIDE 0.9% 500 ML IV SCH (08:00)
[2021-04-12 09:28] LABS: Hematocrit (blood only) 45.4 % (37-47); Hemoglobin 15.7 g/dL (12.0-16.0); Mean Corpuscular Hemoglobin 34.4 pg (25-34); Mean Corpuscular Hgb Conc 34.6 g/dL (32-36); Mean Corpuscular Volume 99.6 fL (80-100); Mean Platelet Volume 12.1 fL (7.4-10.4); Platelet Count 250 K/uL (130-400); RDW Coefficient of Variation 15.6 % (11.5-14.5); Red Blood Count 4.56 M/uL (4.2-5.4); White Blood Count 11.65 K/uL (4.8-10.8)
[2021-04-12 09:53] LABS: BUN Creatinine Ratio 11.2 (10-20); Calcium 8.9 mg/dl (8.5-10.1); Creatinine Clr Calc Pharmacy 39.6 ml/min; Est GFR (African American) 43.3 ml/min; Est GFR (Non-African American) 37.4 ml/min; Potassium 3.5 mmol/L (3.5-5.1)
[2021-04-12] MEDS: INSULIN ASPART PER UNIT SC SCH ×4 (09:53→20:50)
[2021-04-12] MEDS: INSULIN HUMAN NPH SC SCH ×2 (09:54→17:56)
[2021-04-12 10:00] LABS: ALC (manual) 0.91 K/uL (1.2-3.4); ANC (manual) 8.82 K/uL (1.4-6.5); Basophils % (manual) 1.7 %; Eosinophils % (manual) 2.6 %; Lymphocytes # (manual) 0.91 K/uL (1.2-3.4); Lymphocytes % (manual) 7.8 %; Monocytes # (manual) 1.42 K/uL (0.11-0.59); Monocytes % (manual) 12.2 %; Neutrophils # (manual) 8.82 K/uL (1.4-6.5); Neutrophils % (manual) 75.7 %; RBC Morphology Unremarkable
[2021-04-12] MEDS: CEFDINIR 300 MG CAP PO SCH (10:12)
[2021-04-12] MEDS: DESMOPRESSIN ACETATE 0.1 MG TAB PO SCH (10:12)
[2021-04-12] MEDS: CHLORTHALIDONE 25 MG TAB PO SCH (10:12)
[2021-04-12] MEDS: CALCITRIOL 0.25 MCG CAPSULE PO SCH (10:12)
[2021-04-12] MEDS: DOCUSATE SODIUM 100 MG CAP PO SCH (10:13)
[2021-04-12] MEDS: ADVANCED PROBIOTIC 1250 MG CAPSULE PO SCH (10:15)
[2021-04-12] MEDS: MIRABEGRON ER 25 MG TAB PO SCH (10:15)
[2021-04-12] MEDS: MULTIVITAMIN TAB PO SCH (10:15)
[2021-04-12] MEDS: POTASSIUM CHLORIDE CRTAB 20 MEQ TABCR PO SCH ×2 (10:15→19:27)
[2021-04-12] MEDS: HYDROCORTISONE 10 MG TAB PO SCH ×2 (10:15→13:07)
[2021-04-12] MEDS: ENOXAPARIN INJ 40 MG/0.4 ML SYR SQ SCH (10:16)
--- NOTE | 2021-04-12 13:21 | Hospitalist Progress Note ---
Date of Service April 12, 2021 Assessment & Plan (1) AMS (altered mental status): Plan: Patient is an 86 year old female with PMHx Craniotomy x2 for meningioma and Rathke's cyst, Dementia, CVA, Primary Central diabetes insipidus, secondary adrenal insufficiency, central hypothyroidism, who presented for worsening altered mental status. AMS in the setting of Metabolic encephalopathy, panhypopituitarism, adrenal insufficiency -With additional history of advanced dementia -Has not required soft mitts since 04/06/21 -CT head on admission with 4.2 x2.3 cm mass-like abnormality overlying the R frontal craniotomy -Lesion was discussed with family on admission and they did not appear to be leaning towards aggressive treatment -Appreciate input from Palliative, at this time signed off -Will require SNF placement with plan to transition to hospice care - requests sent to [facility] and [facility], additional locations requested today VERO -Slight elevation of creatinine 1.30 -Suspect secondary to limited PO intake -Will give 500mL NSS today, recheck in AM Dementia -Progressive, chronic, and worsened over all -Continue Seroquel qHS PRN DM2 -Glycemic consult placed Panhypopituitarism -Continue Desmopressin -Continue Synthroid Adrenal Insufficiency -Continue Cortef HTN -Continue Chlorthalidone Scalp Lesion -Continue Omnicef, chronic Dispo: Med/Surg, pending placement to SNF FEN: DM2 diet, NSS 100ml/hr x500ML DVT: Lovenox Code: DNR/DNI Admission and Anticipated Discharge Date Admission Date: April 05, 2021 Supervising Physician Co-Signing Physician Notes Patient seen and examined, chart reviewed, case discussed with Dr. Silva and I agree with the assessment and plan as above except as otherwise noted Austen is an 86-year-old female with a past medical history of meningioma with history of craniotomy no residual scab/open mesh, CVA, central diabetes insipidus, secondary AI, hypothyroidism with worsening mental status due to metabolic encephalopathy with panhypopituitary and AI. Remains clinically stable, comfortable at time of exam. She reports she feels "okay ". Slightly increased creatinine today, patient with variable sometimes poor oral intake and supplement prerenal. Encouraging p.o., supplemental fluids given today with BMP recheck tomorrow. Scalp covered by dressing exam unchanged from prior, large scab with mesh on anterior scalp visible. Intermittently tachycardic, pulse with regular rate, symmetrical chest rise with unlabored breathing. Mucous membranes tacky. We will continue hydration, at this time is pending SNF placement with plan to transition to hospice care, case management on board with placement pending. Spot labs as needed, glucose control adequate today. Subjective Patient evaluated at the bedside this AM. Noting she was not feeling as good today, had a bad night. Per nursing had been pulling at her bandages and had removed her scalp bandage. She has been having less PO intake per nursing as well and not hydrating as well. Review of Systems Review of Systems: Unobtainable due to cognitive status Physical Exam Constitutional: well developed, well nourished and + disheveled; no acute distress, + not appropriately hydrated and + uncooperative ENMT: external ear and nose normal, oropharynx normal Neck: trachea midline, no thyromegaly Respiratory: normal respiratory effort, lungs clear to auscultation Cardiovascular: RRR, no murmur, no edema Gastrointestinal (Abdomen): normal bowel sounds, soft, nontender, no hepatosplenomegaly Musculoskeletal: Head/Neck/Chest: + head abnormal to inspection (scabbing with visible mesh on anterior scalp ) Neurologic: moves all extremities Psychiatric: Orientation: alert and oriented to person; + not oriented to place and + not oriented to time Results & Data Results & Data ([facility]) Vital Signs (Past 12 Hours) Vital Signs Temp Pulse Resp BP Pulse Ox 04/12/21 08:00 36.6 C 98 H 20 156/63 H 95 Resident Activity Tracking Resident Involvement: Resident Care Provided Care Provided: Adult Hospital Medicine (1) AMS (altered mental status) Altered mental status type: unspecified Qualified Code(s): R41.82 - Altered mental status, unspecified
--- NOTE | 2021-04-12 17:22 | Billing Data ---
Date of Service April 12, 2021 Coding Level of Care Code 54046 Subseq Hosp Care Lvl 1
[2021-04-12] MEDS: LATANOPROST 0.005% OP SOLN 2.5 ML BTL OP SCH (19:25)
[2021-04-12] MEDS: traZODone HCL 50 MG TAB PO PRN (19:27)
[2021-04-13] MEDS: LEVOTHYROXINE SODIUM 125 MCG TABLET PO SCH (05:40)
--- NOTE | 2021-04-13 06:50 | Hospitalist Progress Note ---
Date of Service April 13, 2021 Assessment & Plan (1) AMS (altered mental status): Plan: Patient is an 86 year old female with PMHx Craniotomy x2 for meningioma and Rathke's cyst, Dementia, CVA, Primary Central diabetes insipidus, secondary adrenal insufficiency, central hypothyroidism, who presented for worsening altered mental status. AMS in the setting of Metabolic encephalopathy, panhypopituitarism, adrenal insufficiency -With additional history of advanced dementia -Has not required soft mitts since 04/06/21 -CT head on admission with 4.2 x2.3 cm mass-like abnormality overlying the R frontal craniotomy -Lesion was discussed with family on admission and they did not appear to be leaning towards aggressive treatment -Appreciate input from Palliative, at this time signed off -Will require SNF placement with plan to transition to hospice care - requests sent to [facility] and [facility], additional locations requested today Hypokalemia -K low at 3.1, ordered for repletion -Difficult with oral and patient without VERO -Slight elevation of creatinine 1.30 yesterday, is since s/p 500mL NSS -Recheck today at 1.36, will give further IVF -Suspect secondary to limited PO intake -With patients continued poor PO intake, may need to consider US guided. -Will have discussion with family in the AM about this. Dementia -Progressive, chronic, and worsened over all -Continue Seroquel qHS PRN DM2 -Glycemic consult placed Panhypopituitarism -Continue Desmopressin -Continue Synthroid Adrenal Insufficiency -Continue Cortef HTN -Continue Chlorthalidone Scalp Lesion -Continue Omnicef, chronic Dispo: Med/Surg, pending placement to SNF FEN: DM2 diet DVT: Lovenox Code: DNR/DNI Admission and Anticipated Discharge Date Admission Date: April 05, 2021 Supervising Physician Co-Signing Physician Notes Patient seen and examined, chart reviewed, case discussed with Dr. Silva and I agree with the assessment and plan as above except as otherwise noted Austen is an 86-year-old female with a past medical history of meningioma with history of craniotomy no residual scab/open mesh, CVA, central diabetes insipidus, secondary AI, hypothyroidism with worsening mental status due to metabolic encephalopathy with panhypopituitary and AI. Remains clinically stable, comfortable at time of exam. Somnolent in room, awakens and reports she feels fine and denies pain and falls back asleep. Scalp remains withlarge scab with mesh on anterior scalp visible. Intermittently tachycardic, pulse with regular rate, symmetrical chest rise with unlabored breathing. Mucous membranes tacky. Creatinine slightly increased, potassium slightly low today. Patient is difficult IV stick, SQ fluids previously used for supplementation, patient actually with improved oral input midday and able to take p.o. potassium repletion. Continue to encourage oral hydration, pending SNF placement with plan to transition to hospice care, case management on board with placement pending. Spot labs as needed, glucose control adequate today. Subjective Patient evaluated at the bedside. Reports that she is feeling "okay" this morning. States she has not been eating or drinking as much as she should. Denies any current pain. Denies any fever, chills, SOB, chest pain, chest pressure, abdominal pain. Review of Systems Review of Systems: All systems reviewed & are unremarkable except as noted in Subjective Physical Exam Constitutional: well developed, well nourished and + disheveled; no acute distress ENMT: external ear and nose normal, oropharynx normal Neck: trachea midline, no thyromegaly Respiratory: normal respiratory effort, lungs clear to auscultation Cardiovascular: RRR, no murmur, no edema Gastrointestinal (Abdomen): normal bowel sounds, soft, nontender, no hepatosplenomegaly Musculoskeletal: Head/Neck/Chest: + head abnormal to inspection (Bandage overlyng scalp, clean dry and intact ) Neurologic: moves all extremities Psychiatric: Orientation: alert and oriented to person; + not oriented to place and + not oriented to time Results & Data Results & [facility] ([facility]) Vital Signs (Past 12 Hours) Vital Signs Temp Pulse Resp BP Pulse Ox 04/12/21 22:50 36.9 C 91 H 20 103/62 92 Resident Activity Tracking Resident Involvement: Resident Care Provided Care Provided: Adult Hospital Medicine (1) AMS (altered mental status) Altered mental status type: unspecified Qualified Code(s): R41.82 - Altered mental status, unspecified
[2021-04-13] MEDS: CEFDINIR 300 MG CAP PO SCH (08:47)
[2021-04-13] MEDS: HYDROCORTISONE 10 MG TAB PO SCH ×2 (08:50→12:50)
[2021-04-13] MEDS: ADVANCED PROBIOTIC 1250 MG CAPSULE PO SCH (08:50)
[2021-04-13] MEDS: DESMOPRESSIN ACETATE 0.1 MG TAB PO SCH (08:50)
[2021-04-13] MEDS: CHLORTHALIDONE 25 MG TAB PO SCH (08:52)
[2021-04-13] MEDS: CALCITRIOL 0.25 MCG CAPSULE PO SCH (08:53)
[2021-04-13] MEDS: DOCUSATE SODIUM 100 MG CAP PO SCH (09:06)
[2021-04-13] MEDS: POTASSIUM CHLORIDE CRTAB 20 MEQ TABCR PO SCH ×2 (09:06→19:54)
[2021-04-13] MEDS: MULTIVITAMIN TAB PO SCH (09:06)
[2021-04-13] MEDS: MIRABEGRON ER 25 MG TAB PO SCH (09:06)
[2021-04-13] MEDS: ENOXAPARIN INJ 40 MG/0.4 ML SYR SQ SCH (09:07)
[2021-04-13] MEDS: INSULIN HUMAN NPH SC SCH ×2 (09:38→18:26)
[2021-04-13] MEDS: INSULIN ASPART PER UNIT SC SCH ×4 (09:41→21:27)
[2021-04-13 11:03] LABS: BUN Creatinine Ratio 9.5 (10-20); Calcium 8.9 mg/dl (8.5-10.1); Creatinine Clr Calc Pharmacy 37.9 ml/min; Est GFR (Non-African American) 35.4 ml/min; Potassium 3.1 mmol/L (3.5-5.1)
[2021-04-13] MEDS ORDERED: POTASSIUM CHLORIDE CRTAB 20 MEQ TABCR PO STA (11:11)
[2021-04-13] MEDS: SODIUM CHLORIDE 0.9% 500 ML IV SCH ×2 (12:41→19:22)
--- NOTE | 2021-04-13 13:10 | Pharmacy Report ---
Pharmacy Glycemic Sign Off Nt - Date of Service April 13, 2021 - Assessment & Plan ASSESSMENT: * Pharmacy was consulted by Dr Daniel on 04/05/21 for glycemic control and to write orders per [facility] inpatient glycemic control protocol. * Major changes made by pharmacy to antidiabetic regimen include: * initiation of NPH and Novolog regimen. * Patient has been receiving/requiring 30-40 units of insulin per day for adequate glycemic control * BSGs ranging 123- 136 mg/dl * Regimen has only required minor adjustments over the past 48hrs to achieve this level of control * Do not anticipate further changes in patient status that would quickly deteriorate glycemic control (i.e. patient to be NPO for upcoming procedure, steroids tapering, starting tube feedings, etc). * Please see recommendations for outpatient antidiabetic regimen below. PLAN FOR INPATIENT GLYCEMIC CONTROL: No changes needed to current regimen. * Continue basal insulin with NPH 20 units SQ in the morning and 10 units SQ in the evening * Continue NovoLog per scale ACHS/Q6hrs while NPO * Goal range = 120- 150 mg/dl * CF = 30 mg/dl/unit * CR = 1 unit for ever 8 g CHO consumed * Pharmacy is signing off of glycemic consult and will no longer be making adjustments to inpatient regimen. Please feel free to re-consult if needed. Thank you. DISCHARGE RECOMMENDATIONS: * A1c 6.9 % on 03/25/21 --> continue home regimen as long as patient is not having significant hypoglycemic events.
[2021-04-13] MEDS ORDERED: POTASSIUM CHLORIDE CRTAB 20 MEQ TABCR PO ONE (18:00)
--- NOTE | 2021-04-13 18:04 | Billing Data ---
Date of Service April 13, 2021 Coding Level of Care Code 25167 Subseq Hosp Care Lvl 1
[2021-04-13] MEDS: LATANOPROST 0.005% OP SOLN 2.5 ML BTL OP SCH (19:54)
[2021-04-14] MEDS ORDERED: ACETAMINOPHEN 325 MG TAB PO PRN (00:44)
[2021-04-14] MEDS: LEVOTHYROXINE SODIUM 125 MCG TABLET PO SCH (05:59)
[2021-04-14 07:24] LABS: BUN Creatinine Ratio 12.1 (10-20); Calcium 8.4 mg/dl (8.5-10.1); Creatinine Clr Calc Pharmacy 42.2 ml/min; Est GFR (African American) 46.8 ml/min; Est GFR (Non-African American) 40.4 ml/min; Potassium 3.3 mmol/L (3.5-5.1)
[2021-04-14] MEDS: INSULIN ASPART PER UNIT SC SCH ×4 (09:20→21:55)
[2021-04-14] MEDS: INSULIN HUMAN NPH SC SCH ×2 (09:25→18:21)
[2021-04-14] MEDS: CHLORTHALIDONE 25 MG TAB PO SCH (09:25)
[2021-04-14] MEDS: CALCITRIOL 0.25 MCG CAPSULE PO SCH (09:25)
[2021-04-14] MEDS: DESMOPRESSIN ACETATE 0.1 MG TAB PO SCH (09:25)
[2021-04-14] MEDS: CEFDINIR 300 MG CAP PO SCH (09:25)
[2021-04-14] MEDS: ADVANCED PROBIOTIC 1250 MG CAPSULE PO SCH (09:26)
[2021-04-14] MEDS: MIRABEGRON ER 25 MG TAB PO SCH (09:26)
[2021-04-14] MEDS: HYDROCORTISONE 10 MG TAB PO SCH ×2 (09:26→12:13)
[2021-04-14] MEDS: ENOXAPARIN INJ 40 MG/0.4 ML SYR SQ SCH (09:26)
[2021-04-14] MEDS: MULTIVITAMIN TAB PO SCH (09:26)
[2021-04-14] MEDS: POTASSIUM CHLORIDE CRTAB 20 MEQ TABCR PO SCH ×2 (09:27→21:45)
[2021-04-14] MEDS: DOCUSATE SODIUM 100 MG CAP PO SCH (09:27)
--- NOTE | 2021-04-14 13:17 | Hospitalist Progress Note ---
Date of Service April 14, 2021 Assessment & Plan (1) AMS (altered mental status): Plan: Patient is an 86 year old female with PMHx Craniotomy x2 for meningioma and Rathke's cyst, Dementia, CVA, Primary Central diabetes insipidus, secondary adrenal insufficiency, central hypothyroidism, who presented for worsening altered mental status. AMS in the setting of Metabolic encephalopathy, panhypopituitarism, adrenal insufficiency -With additional history of advanced dementia -Has not required soft mitts since 04/06/21 -CT head on admission with 4.2 x2.3 cm mass-like abnormality overlying the R frontal craniotomy -Lesion was discussed with family on admission and they did not appear to be leaning towards aggressive treatment -Appreciate input from Palliative, at this time signed off -Will require SNF placement with plan to transition to hospice care - [facility] sent to [facility] and [facility]. Currently no beds available Hypokalemia -K low at 3.1, ordered for repletion -patient tolerates PO medication though occasionally refuses -current K 3.3 VERO -Slight elevation of creatinine 1.30 04/12, given additional IVF -04/14 creatinine 1.22 -Suspect secondary to limited PO intake -With patients continued poor PO intake, may need to consider US guided. Dementia -Progressive, chronic, and worsened over all -Continue Seroquel qHS PRN DM2 -Glycemic consult placed Panhypopituitarism -Continue Desmopressin -Continue Synthroid Adrenal Insufficiency -Continue Cortef HTN -Continue Chlorthalidone Scalp Lesion -Continue Omnicef, chronic Dispo: Med/Surg, pending placement to SNF FEN: DM2 diet DVT: Lovenox Code: DNR/DNI Admission and Anticipated Discharge Date Admission Date: April 05, 2021 Supervising Physician Co-Signing Physician Notes Patient seen and examined, chart reviewed, case discussed with Dr. Silva and I agree with the assessment and plan as above except as otherwise noted Yoav is an 86-year-old female with a past medical history of meningioma with history of craniotomy no residual scab/open mesh, CVA, central diabetes insipidus, secondary AI, hypothyroidism with worsening mental status due to metabolic encephalopathy with panhypopituitary and AI. Remains clinically stable, comfortable at time of exam. Sleeping in room, awakens easily. No questions at time of exam, denies pain/CP/CP/lightheadedness/dizziness. Scalp remains with large scab and exposed mesh, no acute erythema/discharge/purulence. Mildly tachcardic today, normotensive. symmetrical chest rise with unlabored breathing. Mucous membranes tacky. Tolerating PO today, has taken oral potassium. Cr improving, potassium improving not yet normal. Continue BMP spot checks as needed and enourage PO Pending SNF placement with plan to transition to hospice care, case management on board with placement pending. Subjective Patient seen at bedside, asleep comfortable. Patient answered questions in single word noises. Patient slept well last night, states she has pain on her head, denies pain elsewhere. Patient declined answering further questions. Review of Systems Review of Systems: see hpi Physical Exam Constitutional: well developed, + obese, comfortable and + lethargic ENMT: external ear and nose normal, oropharynx normal Neck: trachea midline, no thyromegaly Respiratory: normal respiratory effort, lungs clear to auscultation Cardiovascular: RRR, no murmur, no edema Gastrointestinal (Abdomen): normal bowel sounds, soft, nontender, no hepatosplenomegaly Musculoskeletal: Head/Neck/Chest: + head abnormal to inspection (Bandage overlyng scalp, clean dry and intact ) Results & Data Results & Data ([facility]) Vital Signs (Past 12 Hours) Vital Signs Temp Pulse Resp BP Pulse Ox 04/14/21 07:51 36.7 C 108 H 19 126/56 L 94 Laboratory Results 04/14/21 04/14/21 04/13/21 Range/Units 11:54 06:05 21:12 Sodium 141 (136-145) mmol/L Potassium 3.3 L (3.5-5.1) mmol/L Chloride 110 H (98-107) mmol/L Carbon Dioxide 21 (21-32) mmol/L Anion Gap 10.0 (3-11) BUN 15 (7-18) mg/dl Creatinine 1.22 H (0.6-1.2) mg/dl Est Cr Clr Drug Dosing 42.2 ml/min Est GFR ( Amer) 46.8 ml/min Est GFR (Non-Af Amer) 40.4 ml/min BUN/Creatinine Ratio 12.1 (10-20) Glucose 116 H (70-99) mg/dl POC Glucose 132 H 149 H (70-99) mg/dl Calcium 8.4 L (8.5-10.1) mg/dl 04/13/21 Range/Units 17:13 Sodium (136-145) mmol/L Potassium (3.5-5.1) mmol/L Chloride (98-107) mmol/L Carbon Dioxide (21-32) mmol/L Anion Gap (3-11) BUN (7-18) mg/dl Creatinine (0.6-1.2) mg/dl Est Cr Clr Drug Dosing ml/min Est GFR ( Amer) ml/min Est GFR (Non-Af Amer) ml/min BUN/Creatinine Ratio (10-20) Glucose (70-99) mg/dl POC Glucose 172 H (70-99) mg/dl Calcium (8.5-10.1) mg/dl Diagnostic Findings Chest X-Ray 04/05/21 12:42 XR chest 1V portable CLINICAL HISTORY: weakness TECHNIQUE: Single frontal radiograph of the chest was obtained. Comparison: Comparison is made to chest one view 03/23/2021 FINDINGS: No lines and tubes are seen. Calcified aortic knob is seen. Lungs are underinflated. There is mild prominence of pulmonary vasculature. Airspace opacity is seen at the left lung base. No pneumothorax is seen, pleural effusions cannot be excluded. IMPRESSION: 1. Mild pulmonary edema. 2. Left lung base airspace opacity which may represent atelectasis, pneumonia, and/or aspiration. 3. Cannot exclude left effusion. ACT 112: Negative or not required by law. Electronically signed by: Artis Lopez M.D. 04/05/2021 1:05 PM Medications Administered Current Inpatient Medications Acetaminophen (Acetaminophen 325 Mg Tab) 650 mg PO Q6H PRN PRN Reason: Pain Stop: 05/05/21 19:07 Artificial Tears (Artificial Tears) 1 drops OP QID PRN PRN Reason: dry eye(s) Stop: 05/05/21 19:05 Calcitriol (Calcitriol 0.25 Mcg Capsule) 0.25 mcg PO DAILY DAMON Stop: 05/06/21 08:59 Last Admin: 04/14/21 09:25 Dose: 0.25 mcg Documented by: Cefdinir (Cefdinir 300 Mg Cap) 300 mg PO DAILY DAMON Stop: 05/06/21 08:59 Last Admin: 04/14/21 09:25 Dose: 300 mg Documented by: Chlorthalidone (Chlorthalidone 25 Mg Tab) 12.5 mg PO DAILY [facility] Stop: 05/06/21 08:59 Last Admin: 04/14/21 09:25 Dose: 12.5 mg Documented by: Desmopressin Acetate (Desmopressin Acetate 0.1 Mg Tab) 0.1 mg PO DAILY DAMON Stop: 05/06/21 08:59 Last Admin: 04/14/21 09:25 Dose: 0.1 mg Documented by: Dextrose (Dextrose 50% 50 Ml Syringe) 25 - 50 ml IV UD PRN; Protocol PRN Reason: Hypoglycemia Protocol Stop: 05/05/21 19:29 Docusate Sodium (Docusate Sodium 100 Mg Cap) 100 mg PO DAILY DAMON Stop: 05/06/21 08:59 Last Admin: 04/14/21 09:27 Dose: 100 mg Documented by: Enoxaparin Sodium (Enoxaparin Inj 40 Mg/0.4 Ml Syr) 40 mg SQ QAM [facility] Stop: 05/06/21 11:44 Last Admin: 04/14/21 09:26 Dose: 40 mg Documented by: Furosemide (Furosemide 20 Mg Tab) 20 mg PO Q48H PRN PRN Reason: edema Stop: 05/05/21 17:52 Last Admin: 04/10/21 09:22 Dose: 20 mg Documented by: Glucagon (Glucagon For Inj 1 Mg Vial) 1 mg IM UD PRN; Protocol PRN Reason: Hypoglycemia Protocol Stop: 05/05/21 19:29 Glucose (Glucose 40% Gel 15 Gm Tube) 15 - 30 gm PO UD PRN; Protocol PRN Reason: Hypoglycemia Protocol Stop: 05/05/21 19:29 Glucose (Glucose 10 Tabs/Tube) 4 - 8 tabs PO UD PRN; Protocol PRN Reason: Hypoglycemia Protocol Stop: 05/05/21 19:29 Hydrocortisone (Hydrocortisone 10 Mg Tab) 15 mg PO QAM [facility] Stop: 05/06/21 08:59 Last Admin: 04/14/21 09:26 Dose: 15 mg Documented by: Hydrocortisone (Hydrocortisone 10 Mg Tab) 5 mg PO DAILY@1200 DAMON Stop: 05/06/21 11:59 Last Admin: 04/14/21 12:13 Dose: 5 mg Documented by: Sodium Chloride (Nss) 500 mls @ 125 mls/hr IV .Q4H [facility] Stop: 05/13/21 11:14 Last Infusion: 04/14/21 00:37 Dose: 0 mls/hr Documented by: Insulin Aspart (Insulin Aspart Per Unit) 0 units SC ACHS [facility]; Protocol Stop: 05/05/21 20:59 Last Admin: 04/14/21 12:00 Dose: Not Given Documented by: Insulin Human NPH (Insulin Human Nph) 20 units SC QDB [facility]; Protocol Stop: 05/08/21 07:29 Last Admin: 04/14/21 09:25 Dose: 20 units Documented by: Insulin Human NPH (Insulin Human Nph) 10 units SC QDD [facility]; Protocol Stop: 05/08/21 16:29 Last Admin: 04/13/21 18:26 Dose: 10 units Documented by: Lactobacillus Acidoph/Casei/Rhamnos (Advanced Probiotic 1250 Mg Capsule) 2 cap PO DAILY [facility] Stop: 05/06/21 08:59 Last Admin: 04/14/21 09:26 Dose: 2 cap Documented by: Latanoprost (Latanoprost 0.005% Op Soln 2.5 Ml Btl) 1 drops OP QPM [facility] Stop: 05/05/21 20:59 Last Admin: 04/13/21 19:54 Dose: 1 drops Documented by: Levothyroxine Sodium (Levothyroxine Sodium 125 Mcg Tablet) 125 mcg PO DAILYBB [facility] Stop: 05/06/21 06:29 Last Admin: 04/14/21 05:59 Dose: Not Given Documented by: Mirabegron (Mirabegron Er 25 Mg Tab) 50 mg PO DAILY [facility] Stop: 05/06/21 08:59 Last Admin: 04/14/21 09:26 Dose: 50 mg Documented by: Miscellaneous (Order Awaiting Action: Betamethasone Dipropionate 0.05 % Lotion) 1 ea N/A QS [facility] Stop: 05/06/21 00:00 Last Admin: 04/14/21 12:14 Dose: Not Given Documented by: Miscellaneous (Carbohydrates For Hypoglycemia ) 15 - 30 gm PO UD PRN PRN Reason: Hypoglycemia Treatment Stop: 05/05/21 19:29 Last Admin: 04/06/21 12:39 Dose: 15 gm Documented by: Multivitamins (Multivitamin Tab) 1 tab PO QAM [facility] Stop: 05/06/21 08:59 Last Admin: 04/14/21 09:26 Dose: 1 tab Documented by: Polyethylene Glycol (Polyethylene (Miralax) 17 Gm Pack) 17 gm PO DAILY PRN PRN Reason: constipation Stop: 05/05/21 17:52 Potassium Chloride (Potassium Chloride Crtab 20 Meq Tabcr) 20 meq PO BID DAMON Stop: 05/05/21 20:59 Last Admin: 04/14/21 09:27 Dose: 20 meq Documented by: Quetiapine Fumarate (Quetiapine Fumarate 25 Mg Tablet) 12.5 mg PO HS PRN PRN Reason: AGITATION Stop: 05/07/21 20:59 Last Admin: 04/12/21 19:25 Dose: 12.5 mg Documented by: Trazodone HCl (Trazodone Hcl 50 Mg Tab) 50 mg PO HS PRN PRN Reason: insomnia Stop: 05/05/21 17:52 Last Admin: 04/12/21 19:27 Dose: 50 mg Documented by: Trolamine Salicylate (Trolamine Salicylate 10% Crm 255 Appln/85 Gm Tube) 1 appln EXT BID PRN PRN Reason: pain Stop: 05/05/21 19:03 Resident Activity Tracking Resident Involvement: Resident Care Provided Care Provided: Adult Hospital Medicine (1) AMS (altered mental status) Altered mental status type: unspecified Qualified Code(s): R41.82 - Altered mental status, unspecified
--- NOTE | 2021-04-14 18:58 | Billing Data ---
Date of Service April 14, 2021 Coding Level of Care Code 25594 Subseq Hosp Care Lvl 1
--- NOTE | 2021-04-14 19:18 | Billing Data ---
Date of Service April 14, 2021 Coding Level of Care Code 13953 Subseq Hosp Care Lvl 1
[2021-04-14] MEDS: LATANOPROST 0.005% OP SOLN 2.5 ML BTL OP SCH (21:42)
[2021-04-14] MEDS: SODIUM CHLORIDE 0.9% 500 ML IV SCH ×2 (23:18→23:19)
[2021-04-15] MEDS: traZODone HCL 50 MG TAB PO PRN ×2 (00:02→21:54)
[2021-04-15] MEDS ORDERED: MICONAZOLE NITRATE POWDER 43 GM EXT PRN (02:29)
[2021-04-15] MEDS: LEVOTHYROXINE SODIUM 125 MCG TABLET PO SCH (05:31)
--- NOTE | 2021-04-15 07:20 | Hospitalist Progress Note ---
Date of Service April 15, 2021 Assessment & Plan (1) AMS (altered mental status): Plan: Patient is an 86 year old female with PMHx Craniotomy x2 for meningioma and Rathke's cyst, Dementia, CVA, Primary Central diabetes insipidus, secondary adrenal insufficiency, central hypothyroidism, who presented for worsening altered mental status. AMS in the setting of Metabolic encephalopathy, panhypopituitarism, adrenal insufficiency -With additional history of advanced dementia -Has not required soft mitts since 04/06/21 -CT head on admission with 4.2 x2.3 cm mass-like abnormality overlying the R frontal craniotomy -Lesion was discussed with family on admission and they did not appear to be leaning towards aggressive treatment -Will require SNF placement with plan to transition to hospice care - [facility] to [facility] and [facility]. Currently no beds available, placement still pending -Patient will likely remain here over the weekend. Hypokalemia -remains low -patient tolerates PO medication though occasionally refuses -will recheck in AM. replaced. VERO -Slight elevation of creatinine 1.30 04/12, given additional IVF -Suspect secondary to limited PO intake -With patients continued poor PO intake, may need to consider US guided. -04/15 creatinine 1.57, gave 500ml NS Dementia -Progressive, chronic, and worsened over all -Continue Seroquel qHS PRN DM2 -Glycemic consult placed Panhypopituitarism -Continue Desmopressin -Continue Synthroid Adrenal Insufficiency -Continue Cortef HTN -Continue Chlorthalidone Scalp Lesion -Continue Omnicef, chronic Dispo: Med/Surg, pending placement to SNF FEN: DM2 diet DVT: Lovenox Code: DNR/DNI Admission and Anticipated Discharge Date Admission Date: April 05, 2021 Supervising Physician Co-Signing Physician Notes Patient seen and examined, chart reviewed, case discussed with Dr. Silva and I agree with the assessment and plan as above except as otherwise noted Yoav is an 86-year-old female with a past medical history of meningioma with history of craniotomy no residual scab/open mesh, CVA, central diabetes insipidus, secondary AI, hypothyroidism with worsening mental status due to metabolic encephalopathy with panhypopituitary and AI. Remains clinically stable, comfortable at time of exam. Sleeping in room, awakens easily. No questions at time of exam, denies pain/CP/CP/lightheadedn ess/dizziness. Scalp remains with large scab and exposed mesh, no acute erythema/discharge/purulence. Mildly tachcardic today, normotensive. symmetrical chest rise with unlabored breathing. Mucous membranes tacky. Tolerating PO today, has taken oral potassium. Creatinine has slightly worsened. will order a small IVF bolus of 500 ml. Continue BMP spot checks as needed and enourage PO Pending SNF placement with plan to transition to hospice care, case management on board with placement pending. Subjective Patient seen at bedside, states she ate well slept well, currently requires bedpan. Patient declined answering further questions. Per nursing, patient ate 50% of her breakfast, had some yelling overnight but did not require restraints, has not had swallowing difficulties. Review of Systems Review of Systems: see hpi Physical Exam Constitutional: well developed, + obese, comfortable and + lethargic ENMT: external ear and nose normal, oropharynx normal Neck: trachea midline, no thyromegaly Respiratory: normal respiratory effort, lungs clear to auscultation Cardiovascular: RRR, no murmur, no edema Gastrointestinal (Abdomen): normal bowel sounds, soft, nontender, no hepatosplenomegaly Musculoskeletal: Head/Neck/Chest: + head abnormal to inspection (Bandage overlyng scalp, clean dry and intact ) Results & Data Results & Data ([facility]) Vital Signs (Past 12 Hours) Vital Signs Temp Pulse Resp BP Pulse Ox 04/14/21 23:07 36.2 C L 97 H 18 105/61 93 Laboratory Results 04/15/21 04/15/21 04/15/21 Range/Units 12:04 11:00 08:10 Sodium 141 (136-145) mmol/L Potassium 3.4 L (3.5-5.1) mmol/L Chloride 110 H (98-107) mmol/L Carbon Dioxide 23 (21-32) mmol/L Anion Gap 8.0 (3-11) BUN 18 (7-18) mg/dl Creatinine 1.57 H D (0.6-1.2) mg/dl Est Cr Clr Drug Dosing 32.8 ml/min Est GFR ( Amer) 34.5 ml/min Est GFR (Non-Af Amer) 29.8 ml/min BUN/Creatinine Ratio 11.3 (10-20) Glucose 201 H (70-99) mg/dl POC Glucose 189 H 149 H (70-99) mg/dl Calcium 7.9 L (8.5-10.1) mg/dl Specimen Hemolysis 04/14/21 04/14/21 04/14/21 Range/Units 21:13 17:05 17:05 Sodium (136-145) mmol/L Potassium (3.5-5.1) mmol/L Chloride (98-107) mmol/L Carbon Dioxide (21-32) mmol/L Anion Gap (3-11) BUN (7-18) mg/dl Creatinine (0.6-1.2) mg/dl Est Cr Clr Drug Dosing ml/min Est GFR ( Amer) ml/min Est GFR (Non-Af Amer) ml/min BUN/Creatinine Ratio (10-20) Glucose (70-99) mg/dl POC Glucose 85 67 L* 68 L* (70-99) mg/dl Calcium (8.5-10.1) mg/dl Specimen Hemolysis Medications Administered Current Inpatient Medications Acetaminophen (Acetaminophen 325 Mg Tab) 650 mg PO Q6H PRN PRN Reason: Pain Stop: 05/05/21 19:07 Artificial Tears (Artificial Tears) 1 drops OP QID PRN PRN Reason: dry eye(s) Stop: 05/05/21 19:05 Calcitriol (Calcitriol 0.25 Mcg Capsule) 0.25 mcg PO DAILY [facility] Stop: 05/06/21 08:59 Last Admin: 04/15/21 08:15 Dose: 0.25 mcg Documented by: Cefdinir (Cefdinir 300 Mg Cap) 300 mg PO DAILY [facility] Stop: 05/06/21 08:59 Last Admin: 04/15/21 08:15 Dose: 300 mg Documented by: Chlorthalidone (Chlorthalidone 25 Mg Tab) 12.5 mg PO DAILY [facility] Stop: 05/06/21 08:59 Last Admin: 04/15/21 08:16 Dose: 12.5 mg Documented by: Desmopressin Acetate (Desmopressin Acetate 0.1 Mg Tab) 0.1 mg PO DAILY [facility] Stop: 05/06/21 08:59 Last Admin: 04/15/21 08:19 Dose: 0.1 mg Documented by: Dextrose (Dextrose 50% 50 Ml Syringe) 25 - 50 ml IV UD PRN; Protocol PRN Reason: Hypoglycemia Protocol Stop: 05/05/21 19:29 Docusate Sodium (Docusate Sodium 100 Mg Cap) 100 mg PO DAILY [facility] Stop: 05/06/21 08:59 Last Admin: 04/15/21 08:26 Dose: 100 mg Documented by: Enoxaparin Sodium (Enoxaparin Inj 40 Mg/0.4 Ml Syr) 40 mg SQ QAM [facility] Stop: 05/06/21 11:44 Last Admin: 04/15/21 08:17 Dose: 40 mg Documented by: Furosemide (Furosemide 20 Mg Tab) 20 mg PO Q48H PRN PRN Reason: edema Stop: 05/05/21 17:52 Last Admin: 04/10/21 09:22 Dose: 20 mg Documented by: Glucagon (Glucagon For Inj 1 Mg Vial) 1 mg IM UD PRN; Protocol PRN Reason: Hypoglycemia Protocol Stop: 05/05/21 19:29 Glucose (Glucose 40% Gel 15 Gm Tube) 15 - 30 gm PO UD PRN; Protocol PRN Reason: Hypoglycemia Protocol Stop: 05/05/21 19:29 Glucose (Glucose 10 Tabs/Tube) 4 - 8 tabs PO UD PRN; Protocol PRN Reason: Hypoglycemia Protocol Stop: 05/05/21 19:29 Hydrocortisone (Hydrocortisone 10 Mg Tab) 15 mg PO QAM [facility] Stop: 05/06/21 08:59 Last Admin: 04/15/21 08:16 Dose: 15 mg Documented by: Hydrocortisone (Hydrocortisone 10 Mg Tab) 5 mg PO DAILY@1200 [facility] Stop: 05/06/21 11:59 Last Admin: 04/15/21 12:35 Dose: 5 mg Documented by: Sodium Chloride (Nss) 500 mls @ 125 mls/hr IV .Q4H [facility] Stop: 05/13/21 11:14 Last Admin: 04/14/21 23:19 Dose: Not Given Documented by: Insulin Aspart (Insulin Aspart Per Unit) 0 units SC ACHS [facility]; Protocol Stop: 05/05/21 20:59 Last Admin: 04/15/21 12:57 Dose: 3 units Documented by: Insulin Human NPH (Insulin Human Nph) 20 units SC QDB [facility]; Protocol Stop: 05/08/21 07:29 Last Admin: 04/15/21 10:11 Dose: 20 units Documented by: Insulin Human NPH (Insulin Human Nph) 10 units SC QDD [facility]; Protocol Stop: 05/08/21 16:29 Last Admin: 04/14/21 18:21 Dose: Not Given Documented by: Lactobacillus Acidoph/Casei/Rhamnos (Advanced Probiotic 1250 Mg Capsule) 2 cap PO DAILY [facility] Stop: 05/06/21 08:59 Last Admin: 04/15/21 08:15 Dose: 2 cap Documented by: Latanoprost (Latanoprost 0.005% Op Soln 2.5 Ml Btl) 1 drops OP QPM [facility] Stop: 05/05/21 20:59 Last Admin: 04/14/21 21:42 Dose: 1 drops Documented by: Levothyroxine Sodium (Levothyroxine Sodium 125 Mcg Tablet) 125 mcg PO DAILYBB [facility] Stop: 05/06/21 06:29 Last Admin: 04/15/21 05:31 Dose: 125 mcg Documented by: Miconazole Nitrate (Miconazole Nitrate Powder 43 Gm) 1 appln EXT PRN PRN PRN Reason: Affected Skin Folds Stop: 05/15/21 02:28 Mirabegron (Mirabegron Er 25 Mg Tab) 50 mg PO DAILY [facility] Stop: 05/06/21 08:59 Last Admin: 04/15/21 08:19 Dose: 50 mg Documented by: Miscellaneous (Order Awaiting Action: Betamethasone Dipropionate 0.05 % Lotion) 1 ea N/A QS [facility] Stop: 05/06/21 00:00 Last Admin: 04/15/21 10:10 Dose: Not Given Documented by: Miscellaneous (Carbohydrates For Hypoglycemia ) 15 - 30 gm PO UD PRN PRN Reason: Hypoglycemia Treatment Stop: 05/05/21 19:29 Last Admin: 04/06/21 12:39 Dose: 15 gm Documented by: Multivitamins (Multivitamin Tab) 1 tab PO QAM [facility] Stop: 05/06/21 08:59 Last Admin: 04/15/21 08:16 Dose: 1 tab Documented by: Polyethylene Glycol (Polyethylene (Miralax) 17 Gm Pack) 17 gm PO DAILY PRN PRN Reason: constipation Stop: 05/05/21 17:52 Potassium Chloride (Potassium Chloride Crtab 20 Meq Tabcr) 20 meq PO BID [facility] Stop: 05/05/21 20:59 Last Admin: 04/15/21 08:26 Dose: 20 meq Documented by: Quetiapine Fumarate (Quetiapine Fumarate 25 Mg Tablet) 12.5 mg PO HS PRN PRN Reason: AGITATION Stop: 05/07/21 20:59 Last Admin: 04/12/21 19:25 Dose: 12.5 mg Documented by: Trazodone HCl (Trazodone Hcl 50 Mg Tab) 50 mg PO HS PRN PRN Reason: insomnia Stop: 05/05/21 17:52 Last Admin: 04/15/21 00:02 Dose: 50 mg Documented by: Trolamine Salicylate (Trolamine Salicylate 10% Crm 255 Appln/85 Gm Tube) 1 appln EXT BID PRN PRN Reason: pain Stop: 05/05/21 19:03 Resident Activity Tracking Resident Involvement: Resident Care Provided Care Provided: Adult Hospital Medicine (1) AMS (altered mental status) Altered mental status type: unspecified Qualified Code(s): R41.82 - Altered mental status, unspecified
[2021-04-15] MEDS: CEFDINIR 300 MG CAP PO SCH (08:15)
[2021-04-15] MEDS: ADVANCED PROBIOTIC 1250 MG CAPSULE PO SCH (08:15)
[2021-04-15] MEDS: CALCITRIOL 0.25 MCG CAPSULE PO SCH (08:15)
[2021-04-15] MEDS: CHLORTHALIDONE 25 MG TAB PO SCH (08:16)
[2021-04-15] MEDS: HYDROCORTISONE 10 MG TAB PO SCH ×2 (08:16→12:35)
[2021-04-15] MEDS: MULTIVITAMIN TAB PO SCH (08:16)
[2021-04-15] MEDS: ENOXAPARIN INJ 40 MG/0.4 ML SYR SQ SCH (08:17)
[2021-04-15] MEDS: MIRABEGRON ER 25 MG TAB PO SCH (08:19)
[2021-04-15] MEDS: DESMOPRESSIN ACETATE 0.1 MG TAB PO SCH (08:19)
[2021-04-15] MEDS: DOCUSATE SODIUM 100 MG CAP PO SCH (08:26)
[2021-04-15] MEDS: POTASSIUM CHLORIDE CRTAB 20 MEQ TABCR PO SCH ×2 (08:26→21:54)
[2021-04-15] MEDS: INSULIN HUMAN NPH SC SCH ×2 (10:11→17:52)
[2021-04-15] MEDS: INSULIN ASPART PER UNIT SC SCH ×4 (10:11→21:54)
[2021-04-15 11:29] LABS: BUN Creatinine Ratio 11.3 (10-20); Calcium 7.9 mg/dl (8.5-10.1); Creatinine Clr Calc Pharmacy 32.8 ml/min; Est GFR (African American) 34.5 ml/min; Est GFR (Non-African American) 29.8 ml/min; Potassium 3.4 mmol/L (3.5-5.1)
[2021-04-15] MEDS: LATANOPROST 0.005% OP SOLN 2.5 ML BTL OP SCH (21:54)
[2021-04-15] MEDS: QUEtiapine FUMARATE 25 MG TABLET PO PRN (23:45)
[2021-04-16] MEDS: LEVOTHYROXINE SODIUM 125 MCG TABLET PO SCH (04:43)
--- NOTE | 2021-04-16 07:02 | Hospitalist Progress Note ---
Date of Service April 16, 2021 Assessment & Plan (1) AMS (altered mental status): Plan: Patient is an 86 year old female with PMHx Craniotomy x2 for meningioma and Rathke's cyst, Dementia, CVA, Primary Central diabetes insipidus, secondary adrenal insufficiency, central hypothyroidism, who presented for worsening altered mental status. AMS in the setting of Metabolic encephalopathy, panhypopituitarism, adrenal insufficiency -With additional history of advanced dementia -Has not required soft mitts since 04/06/21 -CT head on admission with 4.2 x2.3 cm mass-like abnormality overlying the R frontal craniotomy -Lesion was discussed with family on admission and they did not appear to be leaning towards aggressive treatment -Will require SNF placement with plan to transition to hospice care - [facility] to [facility]. Currently no beds available, placement still pending Hypokalemia -K low at 3.1, ordered for repletion -patient tolerates PO medication though occasionally refuses -current K 3.2, repletion ordered recheck BMP in AM VERO -Slight elevation of creatinine 1.30 04/12, given additional IVF -Suspect secondary to limited PO intake -With patients continued poor PO intake, may need to consider US guided. -04/15 creatinine 1.57, gave 500ml NS, improved to 1.24 Dementia -Progressive, chronic, and worsened over all -Continue Seroquel qHS PRN DM2 -Glycemic consult placed Panhypopituitarism -Continue Desmopressin -Continue Synthroid Adrenal Insufficiency -Continue Cortef HTN -Continue Chlorthalidone Scalp Lesion -Continue Omnicef, chronic Dispo: Med/Surg, pending placement to SNF FEN: DM2 diet DVT: Lovenox Code: DNR/DNI Admission and Anticipated Discharge Date Admission Date: April 05, 2021 Supervising Physician Co-Signing Physician Notes Patient seen and examined, chart reviewed, case discussed with Dr. Silva and I agree with the assessment and plan as above except as otherwise noted Yoav is an 86-year-old female with a past medical history of meningioma with history of craniotomy no residual scab/open mesh, CVA, central diabetes insipidus, secondary AI, hypothyroidism with worsening mental status due to metabolic encephalopathy with panhypopituitary and AI. Remains clinically stable, comfortable at time of exam. Sleeping in room, awakens easily. No questions at time of exam, denies pain/CP/CP/ lightheadedness/dizziness. Scalp remains with large scab and exposed mesh, no acute erythema/discharge/purulence. Mildly tachcardic today, normotensive. symmetrical chest rise with unlabored breathing. Mucous membranes tacky. Tolerating PO today, has taken oral potassium. Creatinine has improved with small IVF bolus of 500 ml. Continue BMP spot checks as needed and enourage PO Pending SNF placement with plan to transition to hospice care, case management on board with placement pending. Subjective 86yo Female seen at bedside, sleeping. Arousable for short periods of time, answers in mumbles. Patient sleeping with mouth open, visibly dry. Review of Systems Review of Systems: not obtainable due to reduced conscious Physical Exam Constitutional: well developed, + obese, comfortable and + lethargic ENMT: external ear and nose normal, oropharynx normal Neck: trachea midline, no thyromegaly Respiratory: normal respiratory effort, lungs clear to auscultation Cardiovascular: RRR, no murmur, no edema Gastrointestinal (Abdomen): normal bowel sounds, soft, nontender, no hepatosplenomegaly Musculoskeletal: Head/Neck/Chest: + head abnormal to inspection (Meningeal mesh visible to exudate erythema noted) Results & Data Results & Data ([facility]) Vital Signs (Past 12 Hours) Vital Signs Temp Pulse Resp BP Pulse Ox 04/15/21 22:21 36.8 C 88 18 100/65 93 Laboratory Results 04/16/21 04/16/21 04/16/21 Range/Units 12:12 08:11 07:15 Sodium 143 (136-145) mmol/L Potassium 3.2 L (3.5-5.1) mmol/L Chloride 111 H (98-107) mmol/L Carbon Dioxide 22 (21-32) mmol/L Anion Gap 10.0 (3-11) BUN 22 H (7-18) mg/dl Creatinine 1.24 H D (0.6-1.2) mg/dl Est Cr Clr Drug Dosing 41.5 ml/min Est GFR ( Amer) 45.9 ml/min Est GFR (Non-Af Amer) 39.6 ml/min BUN/Creatinine Ratio 17.4 (10-20) Glucose 149 H (70-99) mg/dl POC Glucose 123 H 159 H (70-99) mg/dl Calcium 8.8 (8.5-10.1) mg/dl 04/15/21 04/15/21 04/15/21 Range/Units 20:33 17:09 08:10 Sodium (136-145) mmol/L Potassium (3.5-5.1) mmol/L Chloride (98-107) mmol/L Carbon Dioxide (21-32) mmol/L Anion Gap (3-11) BUN (7-18) mg/dl Creatinine (0.6-1.2) mg/dl Est Cr Clr Drug Dosing ml/min Est GFR ( Amer) ml/min Est GFR (Non-Af Amer) ml/min BUN/Creatinine Ratio (10-20) Glucose (70-99) mg/dl POC Glucose 186 H 239 H 149 H (70-99) mg/dl Calcium (8.5-10.1) mg/dl Medications Administered Current Inpatient Medications Acetaminophen (Acetaminophen 325 Mg Tab) 650 mg PO Q6H PRN PRN Reason: Pain Stop: 05/05/21 19:07 Artificial Tears (Artificial Tears) 1 drops OP QID PRN PRN Reason: dry eye(s) Stop: 05/05/21 19:05 Calcitriol (Calcitriol 0.25 Mcg Capsule) 0.25 mcg PO DAILY [facility] Stop: 05/06/21 08:59 Last Admin: 04/16/21 12:11 Dose: 0.25 mcg Documented by: Cefdinir (Cefdinir 300 Mg Cap) 300 mg PO DAILY [facility] Stop: 05/06/21 08:59 Last Admin: 04/16/21 12:09 Dose: 300 mg Documented by: Chlorthalidone (Chlorthalidone 25 Mg Tab) 12.5 mg PO DAILY [facility] Stop: 05/06/21 08:59 Last Admin: 04/16/21 12:11 Dose: 12.5 mg Documented by: Desmopressin Acetate (Desmopressin Acetate 0.1 Mg Tab) 0.1 mg PO DAILY [facility] Stop: 05/06/21 08:59 Last Admin: 04/16/21 12:09 Dose: 0.1 mg Documented by: Dextrose (Dextrose 50% 50 Ml Syringe) 25 - 50 ml IV UD PRN; Protocol PRN Reason: Hypoglycemia Protocol Stop: 05/05/21 19:29 Docusate Sodium (Docusate Sodium 100 Mg Cap) 100 mg PO DAILY [facility] Stop: 05/06/21 08:59 Last Admin: 04/16/21 12:18 Dose: 100 mg Documented by: Enoxaparin Sodium (Enoxaparin Inj 40 Mg/0.4 Ml Syr) 40 mg SQ QAM [facility] Stop: 05/06/21 11:44 Last Admin: 04/16/21 12:14 Dose: 40 mg Documented by: Furosemide (Furosemide 20 Mg Tab) 20 mg PO Q48H PRN PRN Reason: edema Stop: 05/05/21 17:52 Last Admin: 04/16/21 12:10 Dose: 20 mg Documented by: Glucagon (Glucagon For Inj 1 Mg Vial) 1 mg IM UD PRN; Protocol PRN Reason: Hypoglycemia Protocol Stop: 05/05/21 19:29 Glucose (Glucose 40% Gel 15 Gm Tube) 15 - 30 gm PO UD PRN; Protocol PRN Reason: Hypoglycemia Protocol Stop: 05/05/21 19:29 Glucose (Glucose 10 Tabs/Tube) 4 - 8 tabs PO UD PRN; Protocol PRN Reason: Hypoglycemia Protocol Stop: 05/05/21 19:29 Hydrocortisone (Hydrocortisone 10 Mg Tab) 15 mg PO QAM [facility] Stop: 05/06/21 08:59 Last Admin: 04/16/21 12:10 Dose: 15 mg Documented by: Hydrocortisone (Hydrocortisone 10 Mg Tab) 5 mg PO DAILY@1200 [facility] Stop: 05/06/21 11:59 Last Admin: 04/15/21 12:35 Dose: 5 mg Documented by: Sodium Chloride (Nss) 500 mls @ 125 mls/hr IV .Q4H [facility] Last Admin: 04/14/21 23:19 Dose: Not Given Documented by: Insulin Aspart (Insulin Aspart Per Unit) 0 units SC ACHS [facility]; Protocol Stop: 05/05/21 20:59 Last Admin: 04/16/21 10:36 Dose: 1 units Documented by: Insulin Human NPH (Insulin Human Nph) 20 units SC QDB [facility]; Protocol Stop: 05/08/21 07:29 Last Admin: 04/16/21 10:36 Dose: 20 units Documented by: Insulin Human NPH (Insulin Human Nph) 10 units SC QDD [facility]; Protocol Stop: 05/08/21 16:29 Last Admin: 04/15/21 17:52 Dose: 10 units Documented by: Lactobacillus Acidoph/Casei/Rhamnos (Advanced Probiotic 1250 Mg Capsule) 2 cap PO DAILY [facility] Stop: 05/06/21 08:59 Last Admin: 04/16/21 12:09 Dose: 2 cap Documented by: Latanoprost (Latanoprost 0.005% Op Soln 2.5 Ml Btl) 1 drops OP QPM [facility] Stop: 05/05/21 20:59 Last Admin: 04/15/21 21:54 Dose: 1 drops Documented by: Levothyroxine Sodium (Levothyroxine Sodium 125 Mcg Tablet) 125 mcg PO DAILYBB [facility] Stop: 05/06/21 06:29 Last Admin: 04/16/21 04:43 Dose: 125 mcg Documented by: Miconazole Nitrate (Miconazole Nitrate Powder 43 Gm) 1 appln EXT PRN PRN PRN Reason: Affected Skin Folds Stop: 05/15/21 02:28 Mirabegron (Mirabegron Er 25 Mg Tab) 50 mg PO DAILY [facility] Stop: 05/06/21 08:59 Last Admin: 04/16/21 12:09 Dose: 50 mg Documented by: Miscellaneous (Order Awaiting Action: Betamethasone Dipropionate 0.05 % Lotion) 1 ea N/A QS [facility] Stop: 05/06/21 00:00 Last Admin: 04/16/21 10:11 Dose: Not Given Documented by: Miscellaneous (Carbohydrates For Hypoglycemia ) 15 - 30 gm PO UD PRN PRN Reason: Hypoglycemia Treatment Stop: 05/05/21 19:29 Last Admin: 04/06/21 12:39 Dose: 15 gm Documented by: Multivitamins (Multivitamin Tab) 1 tab PO QAM [facility] Stop: 05/06/21 08:59 Last Admin: 04/16/21 12:09 Dose: 1 tab Documented by: Polyethylene Glycol (Polyethylene (Miralax) 17 Gm Pack) 17 gm PO DAILY PRN PRN Reason: constipation Stop: 05/05/21 17:52 Potassium Chloride (Potassium Chloride Crtab 20 Meq Tabcr) 20 meq PO BID [facility] Stop: 05/05/21 20:59 Last Admin: 04/16/21 12:18 Dose: 20 meq Documented by: Quetiapine Fumarate (Quetiapine Fumarate 25 Mg Tablet) 12.5 mg PO HS PRN PRN Reason: AGITATION Stop: 05/07/21 20:59 Last Admin: 04/16/21 12:10 Dose: 12.5 mg Documented by: Trazodone HCl (Trazodone Hcl 50 Mg Tab) 50 mg PO HS PRN PRN Reason: insomnia Stop: 05/05/21 17:52 Last Admin: 04/15/21 21:54 Dose: 50 mg Documented by: Trolamine Salicylate (Trolamine Salicylate 10% Crm 255 Appln/85 Gm Tube) 1 appln EXT BID PRN PRN Reason: pain Stop: 05/05/21 19:03 Resident Activity Tracking Resident Involvement: Resident Care Provided Care Provided: Adult Hospital Medicine (1) AMS (altered mental status) Altered mental status type: unspecified Qualified Code(s): R41.82 - Altered mental status, unspecified
--- NOTE | 2021-04-16 08:13 | Billing Data ---
Date of Service April 15, 2021 Coding Level of Care Code 89509 Subseq Hosp Care Lvl 3
[2021-04-16 08:24] LABS: BUN Creatinine Ratio 17.4 (10-20); Calcium 8.8 mg/dl (8.5-10.1); Creatinine Clr Calc Pharmacy 41.5 ml/min; Est GFR (African American) 45.9 ml/min; Est GFR (Non-African American) 39.6 ml/min; Potassium 3.2 mmol/L (3.5-5.1)
[2021-04-16] MEDS ORDERED: POTASSIUM CHLORIDE CRTAB 20 MEQ TABCR PO ONE (08:45)
[2021-04-16] MEDS: INSULIN HUMAN NPH SC SCH ×2 (10:36→18:22)
[2021-04-16] MEDS: INSULIN ASPART PER UNIT SC SCH ×4 (10:36→20:15)
[2021-04-16] MEDS: MULTIVITAMIN TAB PO SCH (12:09)
[2021-04-16] MEDS: MIRABEGRON ER 25 MG TAB PO SCH (12:09)
[2021-04-16] MEDS: DESMOPRESSIN ACETATE 0.1 MG TAB PO SCH (12:09)
[2021-04-16] MEDS: CEFDINIR 300 MG CAP PO SCH (12:09)
[2021-04-16] MEDS: ADVANCED PROBIOTIC 1250 MG CAPSULE PO SCH (12:09)
[2021-04-16] MEDS: HYDROCORTISONE 10 MG TAB PO SCH ×2 (12:10→14:52)
[2021-04-16] MEDS: QUEtiapine FUMARATE 25 MG TABLET PO PRN ×2 (12:10→19:59)
[2021-04-16] MEDS: FUROSEMIDE 20 MG TAB PO PRN (12:10)
[2021-04-16] MEDS: CHLORTHALIDONE 25 MG TAB PO SCH (12:11)
[2021-04-16] MEDS: CALCITRIOL 0.25 MCG CAPSULE PO SCH (12:11)
[2021-04-16] MEDS: ENOXAPARIN INJ 40 MG/0.4 ML SYR SQ SCH (12:14)
[2021-04-16] MEDS: POTASSIUM CHLORIDE CRTAB 20 MEQ TABCR PO SCH ×2 (12:18→20:00)
[2021-04-16] MEDS: DOCUSATE SODIUM 100 MG CAP PO SCH (12:18)
[2021-04-16] MEDS ORDERED: SODIUM CHLORIDE 0.9% 500 ML IV SCH (13:15)
[2021-04-16] MEDS: SODIUM CHLORIDE 0.9% 500 ML IV SCH ×2 (18:23→23:33)
[2021-04-16] MEDS: LATANOPROST 0.005% OP SOLN 2.5 ML BTL OP SCH (20:00)
--- NOTE | 2021-04-16 22:47 | Billing Data ---
Date of Service April 16, 2021 Coding Level of Care Code 53194 Subseq Hosp Care Lvl 2
[2021-04-17] MEDS: LEVOTHYROXINE SODIUM 125 MCG TABLET PO SCH (04:51)
[2021-04-17] MEDS: SODIUM CHLORIDE 0.9% 500 ML IV SCH (05:24)
--- NOTE | 2021-04-17 07:00 | Hospitalist Progress Note ---
Date of Service April 17, 2021 Assessment & Plan (1) AMS (altered mental status): Plan: Patient is an 86 year old female with PMHx Craniotomy x2 for meningioma and Rathke's cyst, Dementia, CVA, Primary Central diabetes insipidus, secondary adrenal insufficiency, central hypothyroidism, who presented for worsening altered mental status. AMS in the setting of Metabolic encephalopathy, panhypopituitarism, adrenal insufficiency -With additional history of advanced dementia -Has not required soft mitts since 04/06/21 -CT head on admission with 4.2 x2.3 cm mass-like abnormality overlying the R frontal craniotomy -Lesion was discussed with family on admission and they did not appear to be leaning towards aggressive treatment -Will require SNF placement with plan to transition to hospice care - [facility]. Currently no beds available, placement still pending Hypokalemia -K low at 3.1, ordered for repletion -patient tolerates PO medication though occasionally refuses -current K 3.1, repletion ordered recheck BMP in AM VERO -Slight elevation of creatinine 1.30 04/12, given additional IVF -Suspect secondary to limited PO intake -With patients continued poor PO intake, may need to consider US guided. -repleting with IVF for dehydration, hypernatremia, hypokalemis, repleting KCl orally Dementia -Progressive, chronic, and worsened over all -Continue Seroquel qHS PRN DM2 -Glycemic consult placed Panhypopituitarism -Continue Desmopressin -Continue Synthroid Adrenal Insufficiency -Continue Cortef HTN -Continue Chlorthalidone Scalp Lesion -Continue Omnicef, chronic Dispo: Med/Surg, pending placement to SNF FEN: DM2 diet DVT: Lovenox Code: DNR/DNI Admission and Anticipated Discharge Date Admission Date: April 05, 2021 Supervising Physician Co-Signing Physician Notes Patient seen and examined, chart reviewed, case discussed with Dr. Silva and Dr. Osborne. I agree with the assessment and plan as above. Yoav is an 86-year-old female with a past medical history of meningioma with history of craniotomy no residual scab/open mesh, CVA, central diabetes insipidus, secondary AI, hypothyroidism with worsening mental status due to metabolic encephalopathy with panhypopituitary and AI. Overall, seems have decreased p.o. fluid intake over the last day or so. EXAM 106/67, 93, 18, 37.4, 92% on room air Sleeping in room, awakens easily. No questions at time of exam. Scalp remains with large scab and exposed mesh, no acute erythema/discharge/purulence. DATA Sodium 149, potassium 3.1, BUN 21, creatinine 1.46 A/P Decreased PO intake with elevated sodium today Will gently replace free water, monitor serum sodium Replete potassium orally, monitor serum potassium Pending alf facility placement with plan to transition to hospice care; this was somewhat complicated by the long holiday weekend. Else per resident documentation Subjective 86yo Female seen at bedside, sleeping. Arousable for short periods of time, answers in mumbles. Denies pain. Per nurse, she eats limited amounts of food, routinely picks at her bandages and IV lines, patient unable to recieve IV fluids yesterday after she pulled out IV line. Review of Systems Review of Systems: not obtainable due to reduced conscious Physical Exam Constitutional: well developed, + obese, comfortable and + lethargic ENMT: external ear and nose normal, oropharynx normal Neck: trachea midline, no thyromegaly Respiratory: normal respiratory effort, lungs clear to auscultation Cardiovascular: RRR, no murmur, no edema Gastrointestinal (Abdomen): normal bowel sounds, soft, nontender, no hepatosplenomegaly Musculoskeletal: Head/Neck/Chest: + head abnormal to inspection (Meningeal mesh visible to exudate erythema noted) Results & Data Results & Data ([facility]) Vital Signs (Past 12 Hours) Vital Signs Temp Pulse Resp BP Pulse Ox 04/16/21 21:37 36.9 C 93 H 18 103/65 94 Laboratory Results 04/17/21 04/17/21 04/17/21 Range/Units 12:01 08:03 07:25 Sodium 149 H (136-145) mmol/L Potassium 3.1 L (3.5-5.1) mmol/L Chloride 116 H (98-107) mmol/L Carbon Dioxide 22 (21-32) mmol/L Anion Gap 11.0 (3-11) BUN 21 H (7-18) mg/dl Creatinine 1.46 H (0.6-1.2) mg/dl Est Cr Clr Drug Dosing 35.3 ml/min Est GFR ( Amer) 37.6 ml/min Est GFR (Non-Af Amer) 32.5 ml/min BUN/Creatinine Ratio 14.6 (10-20) Glucose 131 H (70-99) mg/dl POC Glucose 154 H 150 H (70-99) mg/dl Calcium 9.0 (8.5-10.1) mg/dl 04/16/21 04/16/21 Range/Units 20:10 17:10 Sodium (136-145) mmol/L Potassium (3.5-5.1) mmol/L Chloride (98-107) mmol/L Carbon Dioxide (21-32) mmol/L Anion Gap (3-11) BUN (7-18) mg/dl Creatinine (0.6-1.2) mg/dl Est Cr Clr Drug Dosing ml/min Est GFR ( Amer) ml/min Est GFR (Non-Af Amer) ml/min BUN/Creatinine Ratio (10-20) Glucose (70-99) mg/dl POC Glucose 115 H 105 H (70-99) mg/dl Calcium (8.5-10.1) mg/dl Medications Administered Current Inpatient Medications Acetaminophen (Acetaminophen 325 Mg Tab) 650 mg PO Q6H PRN PRN Reason: Pain Stop: 05/05/21 19:07 Artificial Tears (Artificial Tears) 1 drops OP QID PRN PRN Reason: dry eye(s) Stop: 05/05/21 19:05 Calcitriol (Calcitriol 0.25 Mcg Capsule) 0.25 mcg PO DAILY [facility] Stop: 05/06/21 08:59 Last Admin: 04/17/21 10:08 Dose: 0.25 mcg Documented by: Cefdinir (Cefdinir 300 Mg Cap) 300 mg PO DAILY [facility] Stop: 05/06/21 08:59 Last Admin: 04/17/21 10:10 Dose: 300 mg Documented by: Chlorthalidone (Chlorthalidone 25 Mg Tab) 12.5 mg PO DAILY [facility] Stop: 05/06/21 08:59 Last Admin: 04/17/21 10:09 Dose: 12.5 mg Documented by: Desmopressin Acetate (Desmopressin Acetate 0.1 Mg Tab) 0.1 mg PO DAILY [facility] Stop: 05/06/21 08:59 Last Admin: 04/17/21 10:07 Dose: 0.1 mg Documented by: Dextrose (Dextrose 50% 50 Ml Syringe) 25 - 50 ml IV UD PRN; Protocol PRN Reason: Hypoglycemia Protocol Stop: 05/05/21 19:29 Docusate Sodium (Docusate Sodium 100 Mg Cap) 100 mg PO DAILY [facility] Stop: 05/06/21 08:59 Last Admin: 04/17/21 10:17 Dose: 100 mg Documented by: Enoxaparin Sodium (Enoxaparin Inj 40 Mg/0.4 Ml Syr) [facility]: 05/06/21 11:44 Last Admin: 04/17/21 10:11 Dose: 40 mg Documented by: Furosemide (Furosemide 20 Mg Tab) 20 mg PO Q48H PRN PRN Reason: edema Stop: 05/05/21 17:52 Last Admin: 04/17/21 10:07 Dose: 20 mg Documented by: Glucagon (Glucagon For Inj 1 Mg Vial) 1 mg IM UD PRN; Protocol PRN Reason: Hypoglycemia Protocol Stop: 05/05/21 19:29 Glucose (Glucose 40% Gel 15 Gm Tube) 15 - 30 gm PO UD PRN; Protocol PRN Reason: Hypoglycemia Protocol Stop: 05/05/21 19:29 Glucose (Glucose 10 Tabs/Tube) 4 - 8 tabs PO UD PRN; Protocol PRN Reason: Hypoglycemia Protocol Stop: 05/05/21 19:29 Hydrocortisone (Hydrocortisone 10 Mg Tab) 15 mg PO QAM [facility] Stop: 05/06/21 08:59 Last Admin: 04/17/21 10:05 Dose: 15 mg Documented by: Hydrocortisone (Hydrocortisone 10 Mg Tab) 5 mg PO DAILY@1200 [facility] Stop: 05/06/21 11:59 Last Admin: 04/17/21 13:13 Dose: 5 mg Documented by: Lactated Ringer's (Lr) 1,000 mls @ 125 mls/hr IV .Q8H [facility] Stop: 04/18/21 05:29 Last Admin: 04/17/21 13:53 Dose: 125 mls/hr Documented by: Insulin Aspart (Insulin Aspart Per Unit) 0 units SC ACHS [facility]; Protocol Stop: 05/05/21 20:59 Last Admin: 04/17/21 13:12 Dose: 1 units Documented by: Insulin Human NPH (Insulin Human Nph) 20 units SC QDB [facility]; Protocol Stop: 05/08/21 07:29 Last Admin: 04/17/21 10:12 Dose: 20 units Documented by: Insulin Human NPH (Insulin Human Nph) 10 units SC QDD [facility]; Protocol Stop: 05/08/21 16:29 Last Admin: 04/16/21 18:22 Dose: Not Given Documented by: Lactobacillus Acidoph/Casei/Rhamnos (Advanced Probiotic 1250 Mg Capsule) 2 cap PO DAILY [facility] Stop: 05/06/21 08:59 Last Admin: 04/17/21 10:10 Dose: 2 cap Documented by: Latanoprost (Latanoprost 0.005% Op Soln 2.5 Ml Btl) 1 drops OP QPM [facility] Stop: 05/05/21 20:59 Last Admin: 04/16/21 20:00 Dose: 1 drops Documented by: Levothyroxine Sodium (Levothyroxine Sodium 125 Mcg Tablet) 125 mcg PO DAILYBB [facility] Stop: 05/06/21 06:29 Last Admin: 04/17/21 04:51 Dose: 125 mcg Documented by: Miconazole Nitrate (Miconazole Nitrate Powder 43 Gm) 1 appln EXT PRN PRN PRN Reason: Affected Skin Folds Stop: 05/15/21 02:28 Mirabegron (Mirabegron Er 25 Mg Tab) 50 mg PO DAILY [facility] Stop: 05/06/21 08:59 Last Admin: 04/17/21 10:08 Dose: 50 mg Documented by: Miscellaneous (Order Awaiting Action: Betamethasone Dipropionate 0.05 % Lotion) 1 ea N/A QS [facility] Stop: 05/06/21 00:00 Last Admin: 04/17/21 15:10 Dose: Not Given Documented by: Miscellaneous (Carbohydrates For Hypoglycemia ) 15 - 30 gm PO UD PRN PRN Reason: Hypoglycemia Treatment Stop: 05/05/21 19:29 Last Admin: 04/06/21 12:39 Dose: 15 gm Documented by: Multivitamins (Multivitamin Tab) 1 tab PO QAM [facility] Stop: 05/06/21 08:59 Last Admin: 04/17/21 10:07 Dose: 1 tab Documented by: Polyethylene Glycol (Polyethylene (Miralax) 17 Gm Pack) 17 gm PO DAILY PRN PRN Reason: constipation Stop: 05/05/21 17:52 Potassium Chloride (Potassium Chloride Crtab 20 Meq Tabcr) 20 meq PO BID [facility] Stop: 05/05/21 20:59 Last Admin: 04/17/21 10:17 Dose: 20 meq Documented by: Potassium Chloride (Potassium Chloride Crtab 20 Meq Tabcr) 40 meq PO ONE ONE Stop: 04/17/21 18:01 Quetiapine Fumarate (Quetiapine Fumarate 25 Mg Tablet) 12.5 mg PO HS PRN PRN Reason: AGITATION Stop: 05/07/21 20:59 Last Admin: 04/16/21 19:59 Dose: 12.5 mg Documented by: Trazodone HCl (Trazodone Hcl 50 Mg Tab) 50 mg PO HS PRN PRN Reason: insomnia Stop: 05/05/21 17:52 Last Admin: 04/15/21 21:54 Dose: 50 mg Documented by: Trolamine Salicylate (Trolamine Salicylate 10% Crm 255 Appln/85 Gm Tube) 1 appln EXT BID PRN PRN Reason: pain Stop: 05/05/21 19:03 Resident Activity Tracking Resident Involvement: Resident Care Provided Care Provided: Adult Hospital Medicine (1) AMS (altered mental status) Altered mental status type: unspecified Qualified Code(s): R41.82 - Altered mental status, unspecified
[2021-04-17 08:39] LABS: BUN Creatinine Ratio 14.6 (10-20); Creatinine Clr Calc Pharmacy 35.3 ml/min; Est GFR (African American) 37.6 ml/min; Est GFR (Non-African American) 32.5 ml/min; Potassium 3.1 mmol/L (3.5-5.1)
[2021-04-17] MEDS: INSULIN ASPART PER UNIT SC SCH ×4 (10:03→20:12)
[2021-04-17] MEDS: HYDROCORTISONE 10 MG TAB PO SCH ×2 (10:05→13:13)
[2021-04-17] MEDS: FUROSEMIDE 20 MG TAB PO PRN (10:07)
[2021-04-17] MEDS: MULTIVITAMIN TAB PO SCH (10:07)
[2021-04-17] MEDS: DESMOPRESSIN ACETATE 0.1 MG TAB PO SCH (10:07)
[2021-04-17] MEDS: MIRABEGRON ER 25 MG TAB PO SCH (10:08)
[2021-04-17] MEDS: CALCITRIOL 0.25 MCG CAPSULE PO SCH (10:08)
[2021-04-17] MEDS: CHLORTHALIDONE 25 MG TAB PO SCH (10:09)
[2021-04-17] MEDS: CEFDINIR 300 MG CAP PO SCH (10:10)
[2021-04-17] MEDS: ADVANCED PROBIOTIC 1250 MG CAPSULE PO SCH (10:10)
[2021-04-17] MEDS: ENOXAPARIN INJ 40 MG/0.4 ML SYR SQ SCH (10:11)
[2021-04-17] MEDS: INSULIN HUMAN NPH SC SCH ×2 (10:12→17:36)
[2021-04-17] MEDS: DOCUSATE SODIUM 100 MG CAP PO SCH (10:17)
[2021-04-17] MEDS: POTASSIUM CHLORIDE CRTAB 20 MEQ TABCR PO SCH ×2 (10:17→20:00)
[2021-04-17] MEDS ORDERED: POTASSIUM CHLORIDE CRTAB 20 MEQ TABCR PO ONE ×2 (13:25→18:00)
[2021-04-17] MEDS: LACTATED RINGER'S 1,000 ML IV SCH ×2 (13:53→22:18)
[2021-04-17] MEDS: QUEtiapine FUMARATE 25 MG TABLET PO PRN (20:00)
[2021-04-17] MEDS: LATANOPROST 0.005% OP SOLN 2.5 ML BTL OP SCH (20:07)
[2021-04-18] MEDS: LEVOTHYROXINE SODIUM 125 MCG TABLET PO SCH (05:45)
[2021-04-18 07:32] LABS: Hemoglobin 14.6 g/dL (12.0-16.0)
[2021-04-18] MEDS ORDERED: PANTOprazole 40 MG TAB PO ONE (07:45)
[2021-04-18 08:06] LABS: Creatinine Clr Calc Pharmacy 33.2 ml/min; Est GFR (Non-African American) 30.2 ml/min; Potassium 4.1 mmol/L (3.5-5.1)
[2021-04-18] MEDS ORDERED: Nursing to Pharmacy Communication SCH ×2 (08:30→11:45)
[2021-04-18] MEDS: INSULIN ASPART PER UNIT SC SCH ×4 (08:44→20:44)
[2021-04-18] MEDS: HYDROCORTISONE 10 MG TAB PO SCH ×2 (08:46→13:17)
[2021-04-18] MEDS: CHLORTHALIDONE 25 MG TAB PO SCH (08:47)
[2021-04-18] MEDS: FUROSEMIDE 20 MG TAB PO PRN (08:47)
[2021-04-18] MEDS: ADVANCED PROBIOTIC 1250 MG CAPSULE PO SCH (08:48)
[2021-04-18] MEDS: MIRABEGRON ER 25 MG TAB PO SCH (08:49)
[2021-04-18] MEDS: CALCITRIOL 0.25 MCG CAPSULE PO SCH (08:50)
[2021-04-18] MEDS: POTASSIUM CHLORIDE CRTAB 20 MEQ TABCR PO SCH ×2 (08:50→20:29)
[2021-04-18] MEDS: CEFDINIR 300 MG CAP PO SCH (08:51)
[2021-04-18] MEDS: MULTIVITAMIN TAB PO SCH (08:51)
[2021-04-18] MEDS: DESMOPRESSIN ACETATE 0.1 MG TAB PO SCH (08:52)
[2021-04-18] MEDS: DOCUSATE SODIUM 100 MG CAP PO SCH (08:55)
[2021-04-18] MEDS ORDERED: DESMOPRESSIN ACETATE 0.1 MG TAB PO SCH (09:00)
[2021-04-18] MEDS ORDERED: PANTOprazole 40 MG in SYRINGE 0 ML IV SCH (09:00)
[2021-04-18] MEDS ORDERED: DEXTROSE 5% 1,000 ML IV SCH (09:00)
[2021-04-18] MEDS ORDERED: DESMOPRESSIN ACETATE 0.1 MG TAB PO ONE (09:30)
--- NOTE | 2021-04-18 10:29 | Hospitalist Progress Note ---
Date of Service April 18, 2021 Assessment & Plan (1) AMS (altered mental status): Plan: Patient is an 86 year old female with PMHx Craniotomy x2 for meningioma and Rathke's cyst, Dementia, CVA, Primary Central diabetes insipidus, secondary adrenal insufficiency, central hypothyroidism, who presented for worsening altered mental status. Dementia -Progressive, chronic, and worsened over all -Continue Seroquel qHS PRN -likely contributory to her reduced ability to drink and feed herself, as well as her ongoing skin picking. Based on her history she will likely continue to decline, faster if she stops eating entirely. -discussed goals of care with Melecio, agreed to stop blood draws and IV lines for now, will discuss with rest of family tomorrow regarding end of life measures AMS in the setting of Metabolic encephalopathy, panhypopituitarism, adrenal insufficiency -With additional history of advanced dementia -Has not required soft mitts since 04/06/21 -CT head on admission with 4.2 x2.3 cm mass-like abnormality overlying the R frontal craniotomy -Lesion was discussed with family on admission and they did not appear to be leaning towards aggressive treatment -Will require SNF placement with plan to transition to hospice care - [facility]. Currently no beds available, placement still pending Hypokalemia -K low at 3.1, ordered for repletion -patient tolerates PO medication though occasionally refuses -current K 4.1, going forward will replete only by food VERO -Slight elevation of creatinine 1.30 04/12, given additional IVF -Suspect secondary to limited PO intake -With patients continued poor PO intake, may need to consider US guided. -repleting with IVF for dehydration, limited success given patient pulls her IV lines -last Na 152, Cl 123, BUN 28, Creat 1.55, unlikely to replete fluids given patient's limited water intake and removal of her lines. Will dc lines and replete water orally as tolerated DM2 -Glycemic consult placed Panhypopituitarism -Continue Desmopressin -Continue Synthroid Adrenal Insufficiency -Continue Cortef HTN -Continue Chlorthalidone Scalp Lesion -Continue Omnicef, chronic Dispo: Med/Surg, pending placement to SNF FEN: DM2 full liquid DVT: Lovenox Code: DNR/DNI Admission and Anticipated Discharge Date Admission Date: April 05, 2021 Supervising Physician Co-Signing Physician Notes Patient seen and examined, chart reviewed, case discussed with Dr. Silva and Dr. Osborne. I agree with the assessment and plan as above. Yoav is an 86-year-old female with a past medical history of meningioma with history of craniotomy no residual scab/open mesh, CVA, central diabetes insipidus, secondary AI, hypothyroidism with worsening mental status due to metabolic encephalopathy with panhypopituitary and AI. Unfortunately, she pulled out her IV line again. EXAM 127/68, 85, 18, 36.6, 96% room air Sleeping in room, awakens easily. Speech is not clear/incomprehensible Scalp remains with large scab and exposed mesh, no acute erythema/discharge/purulence. Multiple excoriated areas on her forearms bilaterally. DATA Hemoglobin 14.6, hematocrit 43 Sodium 152, potassium 4.1, BUN 20, creatinine 1.55 A/P Dementia, progressive Acute mental status change in setting of metabolic encephalopathy, panhypopi tuitarism, adrenal sufficiency Hypernatremia Suspect hyponatremia secondary to free water deficit, although attempts at IV fluids have been unsuccessful Restraining the patient would likely cause significant increase in her overall agitation, and I suspect what ever improved given her serum sodium will be short-lived. Plan has been placement to long-term facility with transition to hospice; will discuss with family transitioning to comfort care/hospice and not necessarily waiting for SNF placement Consider adding low-dose Seroquel (12.5 mg p.o. twice daily) which may help with her picking/mutilation Else per resident documentation Subjective 86yo Female seen at bedside, awake, agitated, picking off her bandages, scratching blood on the ulcers of her arms. Patient stops momentarily when told to stop, but resumes immediately afterwards. Per nursing, she has been ripping out her IV lines and picking at the insertion sites, she is difficult to stick. Patient has been eating and drinking minimal amounts with prompting. Overnight patient had a dark tarry bowel movement and was NPO given protonix, diet since resumed. Met with patient Melecio this afternoon to discuss patient goals of care. Discussed patient's condition being a result of her dementia, and that she will continue to decline, eventually becoming uninterested or unable to continue her own feeding. Discussed the current difficultly in keeping patient hydrated given her lack of drinking and inability to give her IVF, given her tendency to rip out her lines. Discussed how more fixed lines would cause more damage and risk greater infection should she pull them out. Discussed at this point given our limited options for intervention, further needle sticks are irritating the patient without providing as much benefit. agreed to stop IV attempts and blood draws for now, will discuss with rest of family regarding patient end of life care and hospice. Review of Systems Review of Systems: not obtainable due to reduced conscious Physical Exam Constitutional: well developed, + obese, + altered mental status and + in distress (ripping off bandages, picking at teeth and scalp) ENMT: external ear and nose normal, oropharynx normal Neck: trachea midline, no thyromegaly Respiratory: normal respiratory effort, lungs clear to auscultation Cardiovascular: RRR, no murmur, no edema Gastrointestinal (Abdomen): normal bowel sounds, soft, nontender, no hepatosplenomegaly Musculoskeletal: Head/Neck/Chest: + head abnormal to inspection (Meningeal mes h visible to exudate erythema noted) Skin: multiple ulcers, erythema, excoriations across b/l arms due to repeated picking, bandages removed by patient Results & Data Results & Data ([facility]) Vital Signs (Past 12 Hours) Vital Signs Temp Pulse Resp BP BP Pulse Ox 04/18/21 07:57 36.6 C 85 18 127/68 96 04/18/21 04:38 36.9 C 85 20 109/72 93 Laboratory Results 04/18/21 04/18/21 04/18/21 Range/Units 12:56 08:11 07:23 Hgb 14.6 (12.0-16.0) g/dL Hct 43.0 (37-47) % Sodium (136-145) mmol/L Potassium (3.5-5.1) mmol/L Chloride (98-107) mmol/L Carbon Dioxide (21-32) mmol/L Anion Gap (3-11) BUN (7-18) mg/dl Creatinine (0.6-1.2) mg/dl Est Cr Clr Drug Dosing ml/min Est GFR ( Amer) ml/min Est GFR (Non-Af Amer) ml/min BUN/Creatinine Ratio (10-20) Glucose (70-99) mg/dl POC Glucose 137 H 115 H (70-99) mg/dl Calcium (8.5-10.1) mg/dl 04/18/21 04/17/21 04/17/21 Range/Units 07:23 20:03 17:01 Hgb (12.0-16.0) g/dL Hct (37-47) % Sodium 152 H (136-145) mmol/L Potassium 4.1 D (3.5-5.1) mmol/L Chloride 123 H (98-107) mmol/L Carbon Dioxide 21 (21-32) mmol/L Anion Gap 9.0 (3-11) BUN 28 H (7-18) mg/dl Creatinine 1.55 H (0.6-1.2) mg/dl Est Cr Clr Drug Dosing 33.2 ml/min Est GFR ( Amer) 35.0 ml/min Est GFR (Non-Af Amer) 30.2 ml/min BUN/Creatinine Ratio 18.0 (10-20) Glucose 110 H (70-99) mg/dl POC Glucose 165 H 171 H (70-99) mg/dl Calcium 9.0 (8.5-10.1) mg/dl Medications Administered Current Inpatient Medications Acetaminophen (Acetaminophen 325 Mg Tab) 650 mg PO Q6H PRN PRN Reason: Pain Stop: 05/05/21 19:07 Artificial Tears (Artificial Tears) 1 drops OP QID PRN PRN Reason: dry eye(s) Stop: 05/05/21 19:05 Calcitriol (Calcitriol 0.25 Mcg Capsule) 0.25 mcg PO DAILY [facility] Stop: 05/06/21 08:59 Last Admin: 04/18/21 08:50 Dose: 0.25 mcg Documented by: Cefdinir (Cefdinir 300 Mg Cap) 300 mg PO DAILY [facility] Stop: 05/06/21 08:59 Last Admin: 04/18/21 08:51 Dose: 300 mg Documented by: Chlorthalidone (Chlorthalidone 25 Mg Tab) 12.5 mg PO DAILY [facility] Stop: 05/06/21 08:59 Last Admin: 04/18/21 08:47 Dose: 12.5 mg Documented by: Desmopressin Acetate (Desmopressin Acetate 0.1 Mg Tab) 0.2 mg PO DAILY [facility] Stop: 05/19/21 08:59 Dextrose (Dextrose 50% 50 Ml Syringe) 25 - 50 ml IV UD PRN; Protocol PRN Reason: Hypoglycemia Protocol Stop: 05/05/21 19:29 Docusate Sodium (Docusate Sodium 100 Mg Cap) 100 mg PO DAILY [facility] Stop: 05/06/21 08:59 Last Admin: 04/18/21 08:55 Dose: 100 mg Documented by: Enoxaparin Sodium (Enoxaparin Inj 40 Mg/0.4 Ml Syr) [facility] [place] Stop: 05/06/21 11:44 Last Admin: 04/17/21 10:11 Dose: 40 mg Documented by: Furosemide (Furosemide 20 Mg Tab) 20 mg PO Q48H PRN PRN Reason: edema Stop: 05/05/21 17:52 Last Admin: 04/18/21 08:47 Dose: 20 mg Documented by: Glucagon (Glucagon For Inj 1 Mg Vial) 1 mg IM UD PRN; Protocol PRN Reason: Hypoglycemia Protocol Stop: 05/05/21 19:29 Glucose (Glucose 40% Gel 15 Gm Tube) 15 - 30 gm PO UD PRN; Protocol PRN Reason: Hypoglycemia Protocol Stop: 05/05/21 19:29 Glucose (Glucose 10 Tabs/Tube) 4 - 8 tabs PO UD PRN; Protocol PRN Reason: Hypoglycemia Protocol Stop: 05/05/21 19:29 Hydrocortisone (Hydrocortisone 10 Mg Tab) 15 mg PO QAM [facility] Stop: 05/06/21 08:59 Last Admin: 04/18/21 08:46 Dose: 15 mg Documented by: Hydrocortisone (Hydrocortisone 10 Mg Tab) 5 mg PO DAILY@1200 [facility] Stop: 05/06/21 11:59 Last Admin: 04/18/21 13:17 Dose: 5 mg Documented by: Insulin Aspart (Insulin Aspart Per Unit) 0 units SC ACHS [facility]; Protocol Stop: 05/18/21 11:59 Last Admin: 04/18/21 13:14 Dose: Not Given Documented by: Insulin Human NPH (Insulin Human Nph) 20 units SC QDB [facility]; Protocol Stop: 05/08/21 07:29 Last Admin: 04/18/21 10:52 Dose: 20 units Documented by: Insulin Human NPH (Insulin Human Nph) 10 units SC QDD [facility]; Protocol Stop: 05/08/21 16:29 Last Admin: 04/17/21 17:36 Dose: 10 units Documented by: Lactobacillus Acidoph/Casei/Rhamnos (Advanced Probiotic 1250 Mg Capsule) 2 cap PO DAILY [facility] Stop: 05/06/21 08:59 Last Admin: 04/18/21 08:48 Dose: 2 cap Documented by: Latanoprost (Latanoprost 0.005% Op Soln 2.5 Ml Btl) 1 drops OP QPM [facility] Stop: 05/05/21 20:59 Last Admin: 04/17/21 20:07 Dose: 1 drops Documented by: Levothyroxine Sodium (Levothyroxine Sodium 125 Mcg Tablet) 125 mcg PO DAILYBB [facility] Stop: 05/06/21 06:29 Last Admin: 04/18/21 05:45 Dose: Not Given Documented by: Miconazole Nitrate (Miconazole Nitrate Powder 43 Gm) 1 appln EXT PRN PRN PRN Reason: Affected Skin Folds Stop: 05/15/21 02:28 Mirabegron (Mirabegron Er 25 Mg Tab) 50 mg PO DAILY [facility] Stop: 05/06/21 08:59 Last Admin: 04/18/21 08:49 Dose: 50 mg Documented by: Miscellaneous (Order Awaiting Action: Betamethasone Dipropionate 0.05 % Lotion) 1 ea N/A QS [facility] Stop: 05/06/21 00:00 Last Admin: 04/18/21 13:45 Dose: Not Given Documented by: Miscellaneous (Carbohydrates For Hypoglycemia ) 15 - 30 gm PO UD PRN PRN Reason: Hypoglycemia Treatment Stop: 05/05/21 19:29 Last Admin: 04/06/21 12:39 Dose: 15 gm Documented by: Multivitamins (Multivitamin Tab) 1 tab PO QAM [facility] Stop: 05/06/21 08:59 Last Admin: 04/18/21 08:51 Dose: 1 tab Documented by: Polyethylene Glycol (Polyethylene (Miralax) 17 Gm Pack) 17 gm PO DAILY PRN PRN Reason: constipation Stop: 05/05/21 17:52 Potassium Chloride (Potassium Chloride Crtab 20 Meq Tabcr) 20 meq PO BID [facility] Stop: 05/05/21 20:59 Last Admin: 04/18/21 08:50 Dose: 20 meq Documented by: Quetiapine Fumarate (Quetiapine Fumarate 25 Mg Tablet) 12.5 mg PO HS PRN PRN Reason: AGITATION Stop: 05/07/21 20:59 Last Admin: 04/17/21 20:00 Dose: 12.5 mg Documented by: Trazodone HCl (Trazodone Hcl 50 Mg Tab) 50 mg PO HS PRN PRN Reason: insomnia Stop: 05/05/21 17:52 Last Admin: 04/15/21 21:54 Dose: 50 mg Documented by: Trolamine Salicylate (Trolamine Salicylate 10% Crm 255 Appln/85 Gm Tube) 1 appln EXT BID PRN PRN Reason: pain Stop: 05/05/21 19:03 Resident Activity Tracking Resident Involvement: Resident Care Provided Care Provided: Adult Hospital Medicine (1) AMS (altered mental status) Altered mental status type: unspecified Qualified Code(s): R41.82 - Altered mental status, unspecified
[2021-04-18] MEDS: INSULIN HUMAN NPH SC SCH ×3 (10:33→17:02)
[2021-04-18] MEDS ORDERED: INSULIN ASPART PER UNIT SC SCH (12:00)
[2021-04-18] MEDS: LATANOPROST 0.005% OP SOLN 2.5 ML BTL OP SCH (20:29)
[2021-04-18] MEDS: QUEtiapine FUMARATE 25 MG TABLET PO SCH (20:29)
[2021-04-18] MEDS: traZODone HCL 50 MG TAB PO PRN (20:31)
[2021-04-19] MEDS: LEVOTHYROXINE SODIUM 125 MCG TABLET PO SCH (05:31)
[2021-04-19] MEDS ORDERED: LORazepam 1 MG/2 ML VIAL IV STA (05:36)
[2021-04-19] MEDS ORDERED: LORazepam 1 MG TAB PO STA (05:39)
[2021-04-19] MEDS: CALCITRIOL 0.25 MCG CAPSULE PO SCH (08:27)
[2021-04-19] MEDS: CHLORTHALIDONE 25 MG TAB PO SCH (08:27)
[2021-04-19] MEDS: POTASSIUM CHLORIDE CRTAB 20 MEQ TABCR PO SCH ×2 (08:27→22:01)
[2021-04-19] MEDS: CEFDINIR 300 MG CAP PO SCH (08:27)
[2021-04-19] MEDS: MULTIVITAMIN TAB PO SCH (08:27)
[2021-04-19] MEDS: DOCUSATE SODIUM 100 MG CAP PO SCH (08:27)
[2021-04-19] MEDS: DESMOPRESSIN ACETATE 0.1 MG TAB PO SCH (08:28)
[2021-04-19] MEDS: HYDROCORTISONE 10 MG TAB PO SCH ×2 (08:28→12:38)
[2021-04-19] MEDS: MIRABEGRON ER 25 MG TAB PO SCH (08:28)
[2021-04-19] MEDS: ADVANCED PROBIOTIC 1250 MG CAPSULE PO SCH (08:29)
[2021-04-19] MEDS: INSULIN ASPART PER UNIT SC SCH ×4 (09:57→22:00)
[2021-04-19] MEDS: INSULIN HUMAN NPH SC SCH ×2 (10:02→18:16)
[2021-04-19] MEDS: QUEtiapine FUMARATE 25 MG TABLET PO SCH ×2 (10:54→21:54)
--- NOTE | 2021-04-19 11:56 | Hospitalist Progress Note ---
Date of Service April 19, 2021 Assessment & Plan (1) AMS (altered mental status): Plan: Patient is an 86 year old female with PMHx Craniotomy x2 for meningioma and Rathke's cyst, Dementia, CVA, Primary Central diabetes insipidus, secondary adrenal insufficiency, central hypothyroidism, who presented for worsening altered mental status. Comfort Measures Only -Discussion held with family, patient transitioned to comfort 04/19. No IV or blood draws, morphine ativan ordered, PO home medications continued. Dementia -Progressive, chronic, and worsened over all -Continue Seroquel qHS PRN -likely contributory to her reduced ability to drink and feed herself, as well as her ongoing skin picking. Based on her history she will likely continue to decline, faster if she stops eating entirely. -discussed goals of care with Melecio, agreed to stop blood draws and IV lines for now, will discuss with rest of family tomorrow regarding end of life measures AMS in the setting of Metabolic encephalopathy, panhypopituitarism, adrenal insufficiency -With additional history of advanced dementia -Has not required soft mitts since 04/06/21 -CT head on admission with 4.2 x2.3 cm mass-like abnormality overlying the R frontal craniotomy -Lesion was discussed with family on admission and they did not appear to be leaning towards aggressive treatment -patient transitioned to ORDER PICKER/ASSEMBLER Hypokalemia -K low at 3.1, ordered for repletion -patient tolerates PO medication though occasionally refuses -current K 4.1, going forward will replete only by food VERO -Slight elevation of creatinine 1.30 04/12, given additional IVF -Suspect secondary to limited PO intake -With patients continued poor PO intake, may need to consider US guided. -repleting with IVF for dehydration, limited success given patient pulls her IV lines -last Na 152, Cl 123, BUN 28, Creat 1.55, unlikely to replete fluids given patient's limited water intake and removal of her lines. Will dc lines and replete water orally as tolerated DM2 -Glycemic consult placed Panhypopituitarism -Continue Desmopressin -Continue Synthroid Adrenal Insufficiency -Continue Cortef HTN -Continue Chlorthalidone Scalp Lesion -Continue Omnicef, chronic Dispo: Med/Surg, ORDER PICKER/ASSEMBLER FEN: DM2 full liquid DVT: Lovenox Code: DNR/DNI Admission and Anticipated Discharge Date Admission Date: April 05, 2021 Supervising Physician Co-Signing Physician Notes Patient seen and examined, chart reviewed, case discussed with Dr. Silva and Dr. Osborne. I agree with the assessment and plan as above. At the time of our visit this afternoon, was at bedside. Dr. Silva and I had a conversation with patient's regarding her condition and goals of care. does verbalize a good understanding of the patient's poor overall health and conditions this hospitalization. He is agreeable to proceeding with comfort care only. EXAM 103/52, 97, 16, 37.0, 95% on room air Sleeping in room, she did not awaken during the conversation No obvious signs of pain/discomfort Scalp remains with large scab and exposed mesh, no acute erythema/discharge/purulence. Multiple excoriated areas on her forearms bilaterally are bandaged She is tolerating mittens on her hands DATA Lab draws discontinued A/P Dementia, progressive Acute mental status change in setting of metabolic encephalopathy, panhypopituitarism, adrenal sufficiency Hypernatremia Suspect hyponatremia secondary to free water deficit, although attempts at IV fluids have been unsuccessful Restraining the patient would likely cause significant increase in her overall agitation, and I suspect what ever improved given her serum sodium will be short-lived. Transition to comfort care; will look for private room Continue low-dose Seroquel (12.5 mg p.o. twice daily) which may help with her picking/mutilation; Ativan as needed Else per resident documentation Subjective 86yo Female seen at bedside, lethargic in b/l mittens. Per nursing limited PO intake. Dr. Silva spoke with family, transitioned to ORDER PICKER/ASSEMBLER. Review of Systems Review of Systems: not obtainable due to reduced conscious Physical Exam Constitutional: well developed, + obese, + altered mental status and + lethargic ENMT: external ear and nose normal, oropharynx normal Neck: trachea midline, no thyromegaly Respiratory: normal respiratory effort, lungs clear to auscultation Cardiovascular: RRR, no murmur, no edema Gastrointestinal (Abdomen): normal bowel sounds, soft, nontender, no hepatosplenomegaly Musculoskeletal: Head/Neck/Chest: + head abnormal to inspection (Meningeal mesh visible to exudate erythema noted) Results & Data Results & Data ([facility]) Vital Signs (Past 12 Hours) Vital Signs Temp Pulse Resp BP Pulse Ox 04/19/21 07:08 37.0 C 97 H 16 103/52 L 95 Resident Activity Tracking Resident Involvement: Resident Care Provided Care Provided: Adult Hospital Medicine (1) AMS (altered mental status) Altered mental status type: unspecified Qualified Code(s): R41.82 - Altered mental status, unspecified
[2021-04-19] MEDS ORDERED: LORazepam 2 MG/4 ML VIAL IV PRN (16:05)
[2021-04-19] MEDS ORDERED: ONDANSETRON 4 MG OD TAB SL PRN (16:05)
[2021-04-19] MEDS ORDERED: ONDANSETRON INJ 2 MG/ML 2 ML VIAL IV PRN (16:05)
[2021-04-19] MEDS ORDERED: MoRPHine SULFATE 2 MG/ML CARP IV PRN (16:05)
[2021-04-19] MEDS ORDERED: LORazepam 0.5 MG/1 ML VIAL IV PRN (16:05)
[2021-04-19] MEDS ORDERED: GLYCOPYRROLATE 0.2 MG/ML VIAL IV PRN (16:05)
[2021-04-19] MEDS: LORazepam 0.5 MG TAB PO PRN (21:54)
[2021-04-19] MEDS: MoRPHine SULFATE 5 MG/0.25 ML UDP PO PRN (21:55)
[2021-04-19] MEDS: LATANOPROST 0.005% OP SOLN 2.5 ML BTL OP SCH (22:01)
[2021-04-20] MEDS: MoRPHine SULFATE 5 MG/0.25 ML UDP PO PRN ×4 (01:59→22:11)
[2021-04-20] MEDS: LORazepam 0.5 MG TAB PO PRN (02:39)
[2021-04-20] MEDS: LEVOTHYROXINE SODIUM 125 MCG TABLET PO SCH (05:47)
--- NOTE | 2021-04-20 07:28 | Hospitalist Progress Note ---
Date of Service April 20, 2021 Assessment & Plan (1) AMS (altered mental status): Plan: Patient is an 86 year old female with PMHx Craniotomy x2 for meningioma and Rathke's cyst, Dementia, CVA, Primary Central diabetes insipidus, secondary adrenal insufficiency, central hypothyroidism, who presented for worsening altered mental status. Comfort Measures Only -Discussion held with family, patient transitioned to comfort 04/19. No IV or blood draws, morphine ativan ordered, PO home medications continued. Patient to continue insulin. -04/20 patient less agitation moans occasionally, cannot tolerate PO due to cognitive status Dementia -Progressive, chronic, and worsened over all -Continue Seroquel qHS PRN -likely contributory to her reduced ability to drink and feed herself, as well as her ongoing skin picking. Based on her history she will likely continue to decline, faster if she stops eating entirely. -discussed goals of care with Melecio, agreed to stop blood draws and IV lines for now, will discuss with rest of family tomorrow regarding end of life measures AMS in the setting of Metabolic encephalopathy, panhypopituitarism, adrenal insufficiency -With additional history of advanced dementia -Has not required soft mitts since 04/06/21 -CT head on admission with 4.2 x2.3 cm mass-like abnormality overlying the R frontal craniotomy -Lesion was discussed with family on admission and they did not appear to be leaning towards aggressive treatment -patient transitioned to SHARED SERVICES REPRESENTATIVE Hypokalemia -K low at 3.1, ordered for repletion -patient tolerates PO medication though occasionally refuses -current K 4.1, going forward will replete only by food VERO -Slight elevation of creatinine 1.30 04/12, given additional IVF -Suspect secondary to limited PO intake -With patients continued poor PO intake, may need to consider US guided. -repleting with IVF for dehydration, limited success given patient pulls her IV lines -last Na 152, Cl 123, BUN 28, Creat 1.55, unlikely to replete fluids given patient's limited water intake and removal of her lines. Will dc lines and replete water orally as tolerated DM2 -Glycemic consult placed. Patient will continue to receive insulin Panhypopituitarism -Continue Desmopressin -Continue Synthroid Adrenal Insufficiency -Continue Cortef HTN -Continue Chlorthalidone Scalp Lesion -Continue Omnicef, chronic Dispo: Med/Surg, SHARED SERVICES REPRESENTATIVE FEN: DM2 full liquid DVT: Lovenox Code: DNR/DNI Admission and Anticipated Discharge Date Admission Date: April 05, 2021 Supervising Physician Co-Signing Physician Notes Patient seen and examined, chart reviewed, case discussed with Dr. Silva and Dr. Osborne. I agree with the assessment and plan as above. Patient is sleeping. She does not awaken to her voice. No family is bedside at present. EXAM 103/52, 97, 16, 37 C, 95% on room air Sleeping in room. No obvious signs of pain/discomfort Scalp remains with large scab and exposed mesh, no acute erythema/discharge/purulence. Multiple excoriated areas on her forearms bilaterally are bandaged DATA Lab draws discontinued A/P Dementia, progressive Acute mental status change in setting of metabolic encephalopathy, panhypopituitarism, adrenal sufficiency Hypernatremia Continue comfort care measures Else per resident documentation Subjective 86yo Female seen at bedside, resting comfortably, no signs of tachycardia/tachypnea/wrinkling of forhead indicating pain. Per nurse patient has not been able to take anything PO, moans occasionally, restraints dc'd since yesterday. Updated Patient's Melecio on patient condition, will continue insulin as needed. Review of Systems Review of Systems: not obtainable due to reduced conscious Physical Exam Constitutional: well developed, + obese and + lethargic ENMT: external ear and nose normal, oropharynx normal Neck: trachea midline, no thyromegaly Respiratory: normal respiratory effort, lungs clear to auscultation Cardiovascular: RRR, no murmur, no edema Gastrointestinal (Abdomen): normal bowel sounds, soft, nontender, no hepatosplenomegaly Musculoskeletal: Head/Neck/Chest: + head abnormal to inspection (Meningeal mesh visible to exudate erythema noted) Resident Activity Tracking Resident Involvement: Resident Care Provided Care Provided: Adult Hospital Medicine (1) AMS (altered mental status) Altered mental status type: unspecified Qualified Code(s): R41.82 - Altered mental status, unspecified
[2021-04-20] MEDS: QUEtiapine FUMARATE 25 MG TABLET PO SCH ×2 (09:01→22:14)
[2021-04-20] MEDS: HYDROCORTISONE 10 MG TAB PO SCH ×2 (09:01→11:32)
[2021-04-20] MEDS: CALCITRIOL 0.25 MCG CAPSULE PO SCH (09:01)
[2021-04-20] MEDS: DESMOPRESSIN ACETATE 0.1 MG TAB PO SCH (09:01)
[2021-04-20] MEDS: MULTIVITAMIN TAB PO SCH (09:01)
[2021-04-20] MEDS: POTASSIUM CHLORIDE CRTAB 20 MEQ TABCR PO SCH (09:01)
[2021-04-20] MEDS: CEFDINIR 300 MG CAP PO SCH (09:01)
[2021-04-20] MEDS: DOCUSATE SODIUM 100 MG CAP PO SCH (09:01)
[2021-04-20] MEDS: CHLORTHALIDONE 25 MG TAB PO SCH (09:01)
[2021-04-20] MEDS: INSULIN ASPART PER UNIT SC SCH ×4 (09:15→21:53)
[2021-04-20] MEDS: INSULIN HUMAN NPH SC SCH ×2 (09:15→17:01)
[2021-04-20] MEDS: LATANOPROST 0.005% OP SOLN 2.5 ML BTL OP SCH (22:08)
[2021-04-21] MEDS: MoRPHine SULFATE 5 MG/0.25 ML UDP PO PRN ×4 (03:23→20:47)
[2021-04-21] MEDS: LEVOTHYROXINE SODIUM 125 MCG TABLET PO SCH (05:05)
--- NOTE | 2021-04-21 07:13 | Hospitalist Progress Note ---
Date of Service April 21, 2021 Assessment & Plan (1) AMS (altered mental status): Plan: Patient is an 86 year old female with PMHx Craniotomy x2 for meningioma and Rathke's cyst, Dementia, CVA, Primary Central diabetes insipidus, secondary adrenal insufficiency, central hypothyroidism, who presented for worsening altered mental status. Comfort Measures Only -Discussion held with family, patient transitioned to comfort 04/19. No IV or blood draws, morphine ativan ordered, PO home medications continued. Patient to continue insulin per family wishes. -04/20 patient less agitation moans occasionally, cannot tolerate PO due to cognitive status -04/21 patient recieved PO seroquel via crushed tablet in syringe under tongue. Insulin reduced to 15U am and 8U pm per glycemic control. Family updated, understands continuing comfort measures. Dementia -Progressive, chronic, and worsened over all -Continue Seroquel qHS PRN -likely contributory to her reduced ability to drink and feed herself, as well as her ongoing skin picking. Based on her history she will likely continue to decline, faster if she stops eating entirely. -discussed goals of care with Melecio, agreed to stop blood draws and IV lines for now, will discuss with rest of family tomorrow regarding end of life measures AMS in the setting of Metabolic encephalopathy, panhypopituitarism, adrenal insufficiency -With additional history of advanced dementia -Has not required soft mitts since 04/06/21 -CT head on admission with 4.2 x2.3 cm mass-like abnormality overlying the R frontal craniotomy -Lesion was discussed with family on admission and they did not appear to be leaning towards aggressive treatment -patient transitioned to FACEPIECE LINE SUPERVISOR Hypokalemia -K low at 3.1, ordered for repletion -patient tolerates PO medication though occasionally refuses -current K 4.1, going forward will replete only by food VERO -Slight elevation of creatinine 1.30 04/12, given additional IVF -Suspect secondary to limited PO intake -With patients continued poor PO intake, may need to consider US guided. -repleting with IVF for dehydration, limited success given patient pulls her IV lines -last Na 152, Cl 123, BUN 28, Creat 1.55, unlikely to replete fluids given patient's limited water intake and removal of her lines. Will dc lines and replete water orally as tolerated DM2 -Glycemic consult placed. Patient will continue to receive insulin Panhypopituitarism -Continue Desmopressin -Continue Synthroid Adrenal Insufficiency -Continue Cortef HTN -Continue Chlorthalidone Scalp Lesion -Continue Omnicef, chronic Dispo: Med/Surg, FACEPIECE LINE SUPERVISOR FEN: DM2 full liquid DVT: Lovenox Code: DNR/DNI Admission and Anticipated Discharge Date Admission Date: April 05, 2021 Supervising Physician Co-Signing Physician Notes Attending attestation Pt seen and examined in concert with Dr. Osborne. In agreement with the documented findings as noted in the resident documentation with any exceptions or additions as noted here. Pt resting in bed with mild agitation with speaking in room. Per family present at bedside, did smile without verbal interaction while grandnephews were present. On examination, persistent healing scab on the scalp with mesh, no overt discomfort apparent. Dementia, progressive with delirium in the setting of metabolic encephalopathy, panhypopituitarism - comfort measures - counseling provided to family re: indications for increased intervention and likely course of care Else see resident documentation as noted. Subjective 86yo Female seen at bedside, uncomfortable groaning during repositioning, otherwise lethargic nonverbal moves arms occasionally. Minimal urine, patient has not tolerated food intake due to mental status. Discussed with glycemic control reducing her insulin. Updated on condition. Review of Systems Review of Systems: not obtainable due to reduced conscious Physical Exam Constitutional: well developed, + obese, + altered mental status and + lethargic ENMT: external ear and nose normal, oropharynx normal Neck: trachea midline, no thyromegaly Respiratory: normal respiratory effort, lungs clear to auscultation Cardiovascular: RRR, no murmur, no edema Gastrointestinal (Abdomen): normal bowel sounds, soft, nontender, no hepatosplenomegaly Musculoskeletal: Head/Neck/Chest: + head abnormal to inspection (Meningeal mesh visible to exudate erythema noted) Resident Activity Tracking Resident Involvement: Resident Care Provided Care Provided: Adult Hospital Medicine (1) AMS (altered mental status) Altered mental status type: unspecified Qualified Code(s): R41.82 - Altered mental status, unspecified
[2021-04-21] MEDS: INSULIN ASPART PER UNIT SC SCH ×4 (09:36→20:48)
[2021-04-21] MEDS: INSULIN HUMAN NPH SC SCH (09:37)
[2021-04-21] MEDS: DESMOPRESSIN ACETATE 0.1 MG TAB PO SCH (10:04)
[2021-04-21] MEDS: HYDROCORTISONE 10 MG TAB PO SCH ×2 (10:04→11:24)
[2021-04-21] MEDS: CHLORTHALIDONE 25 MG TAB PO SCH (10:04)
[2021-04-21] MEDS: CEFDINIR 300 MG CAP PO SCH (10:04)
[2021-04-21] MEDS: QUEtiapine FUMARATE 25 MG TABLET PO SCH ×2 (10:05→20:47)
[2021-04-21] MEDS ORDERED: INSULIN HUMAN NPH SC SCH (16:30)
[2021-04-21] MEDS: LATANOPROST 0.005% OP SOLN 2.5 ML BTL OP SCH (20:47)
[2021-04-22] MEDS: LEVOTHYROXINE SODIUM 125 MCG TABLET PO SCH (05:59)
[2021-04-22] MEDS ORDERED: INSULIN HUMAN NPH SC SCH ×2 (07:30→16:30)
[2021-04-22] MEDS: DESMOPRESSIN ACETATE 0.1 MG TAB PO SCH (07:50)
[2021-04-22] MEDS: CEFDINIR 300 MG CAP PO SCH (07:50)
[2021-04-22] MEDS: CHLORTHALIDONE 25 MG TAB PO SCH (07:50)
[2021-04-22] MEDS: QUEtiapine FUMARATE 25 MG TABLET PO SCH (07:51)
[2021-04-22] MEDS: HYDROCORTISONE 10 MG TAB PO SCH ×2 (07:51→12:00)
[2021-04-22] MEDS: INSULIN ASPART PER UNIT SC SCH ×3 (09:05→17:20)
--- NOTE | 2021-04-22 10:34 | Hospitalist Progress Note ---
Date of Service April 22, 2021 Assessment & Plan (1) AMS (altered mental status): Plan: Patient is an 86 year old female with PMHx Craniotomy x2 for meningioma and Rathke's cyst, Dementia, CVA, Primary Central diabetes insipidus, secondary adrenal insufficiency, central hypothyroidism, who presented for worsening altered mental status. Comfort Measures Only -Discussion held with family, patient transitioned to comfort 04/19. No IV or bl ood draws, morphine ativan ordered, PO home medications continued. Patient to continue insulin per family wishes. -04/20 patient less agitation moans occasionally, cannot tolerate PO due to cognitive status -04/21 patient recieved PO seroquel via crushed tablet in syringe under tongue. Insulin reduced to 15U am and 8U pm per glycemic control. Family updated, understands continuing comfort measures. Dementia -Progressive, chronic, and worsened over all -Continue Seroquel qHS PRN -likely contributory to her reduced ability to drink and feed herself, as well as her ongoing skin picking. Based on her history she will likely continue to decline, faster if she stops eating entirely. -discussed goals of care with Melecio, agreed to stop blood draws and IV lines for now, will discuss with rest of family tomorrow regarding end of life measures AMS in the setting of Metabolic encephalopathy, panhypopituitarism, adrenal insufficiency -With additional history of advanced dementia -Has not required soft mitts since 04/06/21 -CT head on admission with 4.2 x2.3 cm mass-like abnormality overlying the R frontal craniotomy -Lesion was discussed with family on admission and they did not appear to be leaning towards aggressive treatment -patient transitioned to TAKE DOWN SORTER Hypokalemia -K low at 3.1, ordered for repletion -patient tolerates PO medication though occasionally refuses -current K 4.1, going forward will replete only by food VERO -Slight elevation of creatinine 1.30 04/12, given additional IVF -Suspect secondary to limited PO intake -With patients continued poor PO intake, may need to consider US guided. -repleting with IVF for dehydration, limited success given patient pulls her IV lines -last Na 152, Cl 123, BUN 28, Creat 1.55, unlikely to replete fluids given patient's limited water intake and removal of her lines. Will dc lines and replete water orally as tolerated DM2 -Glycemic consult placed. Patient will continue to receive insulin Panhypopituitarism -Continue Desmopressin -Continue Synthroid Adrenal Insufficiency -Continue Cortef HTN -Continue Chlorthalidone Scalp Lesion -Continue Omnicef, chronic Dispo: Med/Surg, TAKE DOWN SORTER FEN: DM2 full liquid DVT: Lovenox Code: DNR/DNI Admission and Anticipated Discharge Date Admission Date: April 05, 2021 Supervising Physician Co-Signing Physician Notes Attending attestation Pt seen and examined in concert with Dr. Collins. In agreement with the documented findings as noted in the resident documentation with any exceptions or additions as noted here. Pt sleeping in bed without overt sign of agitation. On examination, healing scab and mesh remain present, diminished motor agitation comparatively. Dementia, progressive with delirium in the setting of metabolic encephalopathy, panhypopituitarism - comfort measures - PO/IV lorazepam for agitation, morphine PO/IV as well. Not stable for transfer to outpatient hospice. Else see resident documentation as noted. (1) AMS (altered mental status) Altered mental status type: unspecified Qualified Code(s): R41.82 - Altered mental status, unspecified
[2021-04-22] MEDS: MoRPHine SULFATE 5 MG/0.25 ML UDP PO PRN (17:42)
--- NOTE | 2021-04-22 19:56 | Death Pronouncement Note ---
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 She was recently discharged for acute metabolic encephalopathy secondary to hypernatremia and, according to her , continued to be mentally altered and had recently been unable to sleep. CT on admission showed a 4.2 x 2.3 cm mass-like abnormality overlying R frontal craniotomy. After discussing goals of care with the admitting team, her agreed to change her code status to DNR/DNI. Patient was started on her home medications for her chronic conditions. Metabolic derangements were repleted as patient could tolerate. Palliative care was consulted and she was assessed the day following admission. It was decided, upon palliative assessment and discussion with her , that she would be transitioned to hospice care pending SNF placement upon discharge. Her agitation improved mildly to not require soft mitts for picking at craniotomy scab. Case management sent requests to [facility], and [facility] for SNF placement but no beds were available. Though medically stabilized, patient gradually declined awaiting SNF placement. Daily labs were adjusted to weekly labs. Following additional discussions with her and family, decision was made to make her comfort measures only (BULB GRADER). On 04/22/2021 at approximately 16:30, I was notified by patient's nurse that she had . She was examined at bedside, with no heartbeat detected x1 minute Pupils were fixed and dilated and nonreactive to light; there was no corneal reflex to direct scratching. She was then officially pronounced at 17:09. Additional Data Attending physician: Junito Jon MD Resident Activity Tracking Resident Involvement: Resident Care Provided Care Provided: [facility] Medicine
[2021-04-23] MEDS ORDERED: INSULIN HUMAN NPH SC SCH (07:30)
--- NOTE | 2021-04-25 16:31 | Discharge Summary ---
Date of Service April 25, 2021 Admission HPI Per Admitting Provider 86 yo female is a poor historian. Patient was recently discharged home, however she has remained delirious and has not been able to sleep. states this has been affecting him mentally and physically. is now agreeable to DNR/DNI. Admission Exam Per Admitting Provider General: patient awake, alert to her name but not place/time/event or situation, lying in bed with mitts on. Skin: warm, dry, intact, venous stasis changes present on bilateral LE with skin flaking HEENT: NC/AT, PERRL, EOMI, anicteric sclera, conjunctiva without injection, external ear normal to inspection and nontender, nares patent, mucus membranes slightly dry, dentition intact, no oropharyngeal lesions, neck supple, trachea midline, no LAD, no thyromegaly, no JVD, LARGE scab noted on head. Heart: +S1/S2, regular, 92BPM, no m/r/g, 1-2+ b/l LE edema, calves equal in size nontender to palpation Lungs: no rales/rhonchi/wheezes, diminished in the bases, poor inspiratory effort when asked to take a deep breath, stable on room air Abd: +hypoactive, soft, non-distended, not focally tender although yelling out when touched anywhere, Ext: cool, 2+ pulses in UE/LE bilaterally, no clubbing/cyanosis, 2+ bilateral LE edema tender to palpation across thoracic spine Neuro: alert and oriented to self but not place/time/situation. generalized weakness now slightly improved (wheelchair at baseline but was witnessed standing up with walker with therapy 03/25) Principal Diagnosis Altered mental status secondary to metabolic encephalopathy Discharge Exam Eyes Pupils fixed and dilated. No corneal reflex to direct irritation. Cardiovascular No heartbeat detected for over 1 minute of auscultation. Discharge Data Allergies Allergy/AdvReac Type Severity Reaction Status Date / Time amoxicillin Allergy Intermediate Swelling Verified 03/23/21 17:21 of Lips Cipro Allergy Intermediate RASH, Verified 08/03/17 14:29 NAUSEA ciprofloxacin Allergy Intermediate RASH, Verified 03/23/21 17:21 NAUSEA Sulfa (Sulfonamide Allergy Intermediate RASH Verified 03/23/21 17:21 Antibiotics) biotin Allergy Unknown UNKN Verified 03/23/21 17:21 cefepime AdvReac Severe HALLUCINATI Verified 03/23/21 17:21 ONS diphenhydramine AdvReac Severe HYPER Verified 03/23/21 17:21 INSOMNIA mirtazapine AdvReac Intermediate altered Verified 03/23/21 17:21 mental status changes nitrofurantoin AdvReac Intermediate CHEST Verified 03/23/21 17:21 PAIN, CONFUSION oxycodone AdvReac Mild N/V Verified 03/23/21 17:21 Consultations 04/05/21 16:07 ED Decision to Admit Stat 04/05/21 16:15 ED Decision to Admit Stat 04/05/21 17:59 Consult Palliative Care Routine Hospital Course (1) Metabolic encephalopathy: Yoav Valencia was an 86 F w/ a medical history of hypertension, 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 She was recently discharged for acute metabolic encephalopathy secondary to hypernatremia and, according to her , continued to be mentally altered and had recently been unable to sleep. CT on admission showed a 4.2 x 2.3 cm mass-like abnormality overlying R frontal craniotomy. After discussing goals of care with the admitting team, her agreed to change her code status to DNR/DNI. Patient was started on her home medications for her chronic conditions. Metabolic derangements were repleted as patient could tolerate. Palliative care was consulted and she was assessed the day following admission. It was decided, upon palliative assessment and discussion with her , that she would be transitioned to hospice care pending SNF placement upon discharge. Her agitation improved mildly to not require soft mitts for picking at craniotomy scab. Case management [facility], and [facility] for [facility]F placement but no beds were available. Though medically stabilized, patient gradually declined awaiting SNF placement. Daily labs were adjusted to weekly labs. Following additional discussions with her and family, decision was made to make her comfort measures only (MOLD BREAKER). On 04/22/2021 at approximately 16:30, I was notified by rebeca saez's nurse that she had . She was examined at bedside, with no heartbeat detected x1 minute Pupils were fixed and dilated and nonreactive to light; there was no corneal reflex to direct scratching. She was then officially pronounced at 17:09. (2) Hypernatremia: (3) Dementia: Total Time Total Time Spent Total Time Spent (In Minutes): 10 Discharge Plan Discharge Items Patient Disposition: Other Date/Time: 04/22/21 19:09 Supervising Physician Co-Signing Physician Notes Attending attestation Pt seen and examined in concert with Dr. Collins. In agreement with the documented findings as noted in the resident documentation. At time of examination, patient was resting without signs of overt agitation with essentially unchanged examination from previous. On comfort measures for terminal disease as noted above, as noted, with my condolences. Else see resident documentation as noted. Resident Activity Tracking Resident Involvement: Resident Care Provided Care Provided: Adult Hospital Medicine
== END 2021-04-22 20:15 | disposition expired | DRG 643 ==
LOC: ED 12:31 → EDINP 17:59 → SUATTDRO 17:59 → 3N 20:27 → 3E 04-19 18:31